=== PATIENT | male | born 1955 | race Caucasian/White ===

== ENCOUNTER 2021-05-17 10:24 | Inpatient (IN) | payer MEDICAID, SELFPAY ==
[2021-05-17] VITALS (12 sets, daily range): BP systolic 100–109; BP diastolic 65–79; PULSE 88–103; RESP 16–31; TEMP 36.6–37.1; O2SAT 90–99; BMI 25.8
--- NOTE | 2021-05-17 10:45 | XRR_ITS ---
PROCEDURE INFORMATION: Exam: XR Chest Exam date and time: 05/17/2021 10:45 AM Age: 65 years old Clinical indication: Other: Hypoxia; Patient HX: Best images possible, PT in non verbal; Additional info: Covid, hypoxia TECHNIQUE: Imaging protocol: XR of the chest. Views: 1 view. COMPARISON: CR Chest 1 [place] [id number] 09/27/2016 2:18 PM FINDINGS: Lungs: Obscuration of the right lung base by the patient's hand. Emphysematous change and interstitial prominence. Pleural spaces: No significant pleural effusion. Heart/Mediastinum: No cardiomegaly. Bones/joints: Unremarkable. XR/XR chest 1V portable [id number] IMPRESSION: 1. Obscuration of the right lung base by the patient's hand. 2. Emphysematous change and interstitial prominence.
--- NOTE | 2021-05-17 10:45 | ECG_ITS ---
[facility] Test Date: 2021-05-17 Pat Name: Jorge Luis Lucas Department: Room: 106 Gender: Male Magician/Illusionist: : 1955 Requested By: Marilynn Gao Order Number: [id number] Ash MD: Rich Madison M.D. Measurements Intervals [place] Rate: 94 P: 46 AK: 137 QRS: 63 QRSD: 96 T: 31 QT: 334 QTc: 419 Interpretive Statements SINUS RHYTHM Compared to ECG 09/27/2016 14:37:19 No significant changes Electronically Signed On 05-17-2021 18:51:28 CDT by Rich Madison M.D. [id number]
--- NOTE | 2021-05-17 10:50 | W.ED.COVID ---
Documented by User: MOE Pham 05/17/21 10:55 HPI - COVID General: Chief Complaint: COVID symptoms Stated Complaint: ALOC, COVID + LOW O2, FEVER Time Seen by Provider: 05/17/21 10:31 Source: EMS Mode of arrival: EMS Limitations: other (pt is non-verbal) Triage information: Has fever, cough or shortness of breath. Exposure to COVID + person last 14 days History of Present Illness: HPI Narrative: Patient is a 65-year-old male from [facility] brought by EMS for worsening deterioration after being diagnosed with COVID-19. Patient himself is completely nonverbal. He is a quadriplegic. EMS tells me he was diagnosed with COVID-19 over the weekend. They state upon arrival patient was febrile at 101 and hypoxic in the 80s. They placed him on 10L via non-rebreather. Not a lot is known regarding patient's history. EMS does state he has a history of seizures. Caregiver arrived shortly after and states she is trying to get contact information for his guardian. She does tell me his chart states he is not a DNR. MD complaint: known COVID positive Prior covid testing: yes, results known COVID 19 other sytmptoms: positive requiring oxygen Onset (ago): day(s) Severity: severe and rapidly worsening Treatment prior to arrival: oxygen COVID Results: Nasal/Oral Coronavirus 2019 PCR Pending 05/17/21 14:35 05/17/21 Review of Systems General: Reports: ROS unobtainable due to medical condition and ROS unobtainable due to mental status Physical Exam Const: EXAM LIMITATIONS: language barrier and physical limitations GENERAL APPEARANCE: other (thin, chronic hypotonia with contractures ) NUTRITIONAL APPEARANCE: thin OTHER: pt is completely non-verbal, he does not follow any commands Resp: EFFORT & INSPECTION: Yes tachypneic, Yes respiratory distress and Yes labored AUSCULTATION: crackles and diminished lung sounds Cardio: COMMON NORMALS: regular rhythm RATE: tachycardic (mild) RHYTHM: regular rhythm Extremity: NARRATIVE EXTREMITY EXAM: bilateral UE/LE contractures Course Vital Signs: Vital signs: Vital Signs Temperature 97.7 F 05/18/21 04:00 Pulse Rate 78 05/18/21 05:45 Respiratory Rate 22 H 05/18/21 04:00 Blood Pressure 92/62 06/22/21 04:00 Pulse Oximetry 90 05/18/21 04:00 MDM - COVID MDM Narrative: Medical decision making narrative: Care will be transferred to Dr. Vazquez Lab Data: Labs: Lab Results 05/17/21 05/17/21 05/17/21 Range/Units 11:05 11:35 11:35 WBC 4.4 (4.0-10.0) 10^3/ uL RBC 4.94 (4.1-5.3) 10^6/u L Hgb 15.2 (11.7-16.6) g/dL Hct 45.5 (42.0-52.0) % MCV 92.1 (80-94) fL MCH 30.8 (28.0-34.0) pg MCHC 33.4 (30.0-36.0) g/dL RDW 13.8 (12.1-15.1) % Plt Count 129 L (130-400) 10^3/c mm MPV 12.9 H (7.4-10.4) fL Neut % (Auto) 78.3 % Lymph % (Auto) 15.1 % Gaston % (Auto) 6.1 % Eos % (Auto) 0.0 % Baso % (Auto) 0.0 % Neut # (Auto) 3.48 (1.8-7.7) 10^3/u L Lymph # (Auto) 0.7 L (0.8-4.8) 10^3/u L Gaston # (Auto) 0.3 (0.2-0.9) 10^3/u L Eos # (Auto) 0.0 (0.0-0.8) 10^3/u L Baso # (Auto) 0.0 (0.0-0.1) 10^3/u L Nucleated RBC % (a uto) 0 % Nucleated RBCs # 0.0 /100WBC PT Cancelled INR Cancelled APTT Cancelled Fibrinogen Cancelled D-Dimer Cancelled Specimen Type Arterial Sample Site Radial, right ABG pH 7.45 (7.35-7.45) ABG pCO2 36.3 (35-45) mmHg ABG pO2 152.0 H (80.0-100.0) mmH g ABG HCO3 24.9 (22-26) mmol/L ABG Base Excess 1.2 (-2.0-2.0) mmol/ L Palmer Test N/a Hematocrit 47.7 (42-52) % O2 Delivery Device Nrb O2 Liters/Min 10.0 % FiO2 100.0 % [employer] ID Monro Sodium Potassium Chloride Carbon Dioxide Anion Gap BUN Creatinine GFR Calculation Glucose Calculated Osmolal ity Lactic Acid Lactate (0.5-2.2) mmol/L Calcium Ferritin Total Bilirubin AST ALT Alkaline Phosphata se Creatine Kinase Troponin T Gen 5 n g/L C-Reactive Protein NT-Pro-B Natriuret Pep Total Protein Albumin Globulin Procalcitonin Influenza Type A A g (Negative) Influenza Type B A g (Negative) 05/17/21 05/17/21 05/17/21 Range/Units 11:35 11:35 11:35 WBC (4.0-10.0) 10^3/ uL RBC (4.1-5.3) 10^6/u L Hgb (11.7-16.6) g/dL Hct (42.0-52.0) % MCV (80-94) fL MCH (28.0-34.0) pg MCHC (30.0-36.0) g/dL RDW (12.1-15.1) % Plt Count (130-400) 10^3/c mm MPV (7.4-10.4) fL Neut % (Auto) % Lymph % (Auto) % Gaston % (Auto) % Eos % (Auto) % Baso % (Auto) % Neut # (Auto) (1.8-7.7) 10^3/u L Lymph # (Auto) (0.8-4.8) 10^3/u L Gaston # (Auto) (0.2-0.9) 10^3/u L Eos # (Auto) (0.0-0.8) 10^3/u L Baso # (Auto) (0.0-0.1) 10^3/u L Nucleated RBC % (a uto) % Nucleated RBCs # /100WBC PT INR APTT Fibrinogen D-Dimer Specimen Type Sample Site ABG pH (7.35-7.45) ABG pCO2 (35-45) mmHg ABG pO2 (80.0-100.0) mmH g ABG HCO3 (22-26) mmol/L ABG Base Excess (-2.0-2.0) mmol/ L Palmer Test Hematocrit (42-52) % O2 Delivery Device O2 Liters/Min % FiO2 % [employer] ID Sodium Cancelled Potassium Cancelled Chloride Cancelled Carbon Dioxide Cancelled Anion Gap Cancelled BUN Cancelled Creatinine Cancelled GFR Calculation Cancelled Glucose Cancelled Calculated Osmolal ity Cancelled Lactic Acid Cancelled Lactate (0.5-2.2) mmol/L Calcium Cancelled Ferritin Cancelled Total Bilirubin Cancelled AST Cancelled ALT Cancelled Alkaline Phosphata se Cancelled Creatine Kinase Cancelled Troponin T Gen 5 n g/L Cancelled C-Reactive Protein Cancelled NT-Pro-B Natriuret Pep Cancelled Total Protein Cancelled Albumin Cancelled Globulin Cancelled Procalcitonin Cancelled Influenza Type A A g (Negative) Influenza Type B A g (Negative) 05/17/21 05/17/21 05/17/21 Range/Units 12:04 12:34 12:34 WBC (4.0-10.0) 10^3/ uL RBC (4.1-5.3) 10^6/u L Hgb (11.7-16.6) g/dL Hct (42.0-52.0) % MCV (80-94) fL MCH (28.0-34.0) pg MCHC (30.0-36.0) g/dL RDW (12.1-15.1) % Plt Count (130-400) 10^3/c mm MPV (7.4-10.4) fL Neut % (Auto) % Lymph % (Auto) % Gaston % (Auto) % Eos % (Auto) % Baso % (Auto) % Neut # (Auto) (1.8-7.7) 10^3/u L Lymph # (Auto) (0.8-4.8) 10^3/u L Gaston # (Auto) (0.2-0.9) 10^3/u L Eos # (Auto) (0.0-0.8) 10^3/u L Baso # (Auto) (0.0-0.1) 10^3/u L Nucleated RBC % (a uto) % Nucleated RBCs # /100WBC PT 14.70 INR 1.11 APTT 45.7 H Fibrinogen 425 D-Dimer 0.68 H Specimen Type Sample Site ABG pH (7.35-7.45) ABG pCO2 (35-45) mmHg ABG pO2 (80.0-100.0) mmH g ABG HCO3 (22-26) mmol/L ABG Base Excess (-2.0-2.0) mmol/ L Palmer Test Hematocrit (42-52) % O2 Delivery Device O2 Liters/Min % FiO2 % [employer] ID Sodium Potassium Chloride Carbon Dioxide Anion Gap BUN Creatinine GFR Calculation Glucose Calculated Osmolal ity Lactic Acid Lactate (0.5-2.2) mmol/L Calcium Ferritin Total Bilirubin AST ALT Alkaline Phosphata se Creatine Kinase Troponin T Gen 5 n g/L 10 C-Reactive Protein NT-Pro-B Natriuret Pep Total Protein Albumin Globulin Procalcitonin Influenza Type A A g Negative (Negative) Influenza Type B A g Negative (Negative) 05/17/21 05/17/21 05/17/21 Range/Units 12:34 12:34 12:34 WBC (4.0-10.0) 10^3/ uL RBC (4.1-5.3) 10^6/u L Hgb (11.7-16.6) g/dL Hct (42.0-52.0) % MCV (80-94) fL MCH (28.0-34.0) pg MCHC (30.0-36.0) g/dL RDW (12.1-15.1) % Plt Count (130-400) 10^3/c mm MPV (7.4-10.4) fL Neut % (Auto) % Lymph % (Auto) % Gaston % (Auto) % Eos % (Auto) % Baso % (Auto) % Neut # (Auto) (1.8-7.7) 10^3/u L Lymph # (Auto) (0.8-4.8) 10^3/u L Gaston # (Auto) (0.2-0.9) 10^3/u L Eos # (Auto) (0.0-0.8) 10^3/u L Baso # (Auto) (0.0-0.1) 10^3/u L Nucleated RBC % (a uto) % Nucleated RBCs # /100WBC PT INR APTT Fibrinogen D-Dimer Specimen Type Sample Site ABG pH (7.35-7.45) ABG pCO2 (35-45) mmHg ABG pO2 (80.0-100.0) mmH g ABG HCO3 (22-26) mmol/L ABG Base Excess (-2.0-2.0) mmol/ L Palmer Test Hematocrit (42-52) % O2 Delivery Device O2 Liters/Min % FiO2 % [employer] ID Sodium 145 Cancelled Potassium 3.6 Cancelled Chloride 111 H Cancelled Carbon Dioxide 22 Cancelled Anion Gap 15.6 Cancelled BUN 14 Cancelled Creatinine 0.8 Cancelled GFR Calculation 97.6 Cancelled Glucose 113 Cancelled Calculated Osmolal ity 301 H Cancelled Lactic Acid Lactate 0.8 (0.5-2.2) mmol/L Calcium 7.8 L Cancelled Ferritin 894 H Total Bilirubin 0.3 Cancelled AST 44 H Cancelled ALT 28 Cancelled Alkaline Phosphata se 104 Cancelled Creatine Kinase 200 Troponin T Gen 5 n g/L C-Reactive Protein 112.9 H Cancelled NT-Pro-B Natriuret Pep 45 Total Protein 5.7 L Cancelled Albumin 3.1 L Cancelled Globulin 2.6 Cancelled Procalcitonin 0.36 Influenza Type A A g (Negative) Influenza Type B A g (Negative) COVID Results: Nasal/Oral Coronavirus 2019 PCR Pending 05/17/21 14:35 05/17/21 Discharge Plan Discharge Patient Disposition: Admitted As Inpatient Admit Provider: Rajat Carreno Clinical Impression: Pneumonia due to COVID-19 virus, Pulmonary embolism, Thrombocytopenia Condition: Stable Sign Out Sign Out Data: Patient Sign Out occurred on 05/17/21 at 11:31. Patient's care was discussed, and care was transferred from to Josh Vazquez DO. Coding Level of Care Code ED Windows Support Engineer for Chg Fwd Exam Expanded Problem Focused Documented by User: Josh Vazquez DO 05/18/21 06:21 HPI - COVID General: Chief Complaint: COVID symptoms Stated Complaint: ALOC, COVID + LOW O2, FEVER Time Seen by Provider: 05/17/21 10:31 History of Present Illness: HPI Narrative: 65-year-old male brought in by caregivers. He was tested twice with rapid antigen's in outside clinic over the weekend first on May 14 and then on May 15 May 15 test was positive. Patient is a paraplegic was evidently found as an abandoned and has been in institutional care since. He has a state appointed guardian but evidently is from [place]. We did talk to her and she wishes for the patient to be a full code. Patient presents hypoxic requiring supplemental oxygen to maintain oxygen sats. Because of his underlying medical condition he cannot contribute any to history. His was first seen by Marilynn Gao or MOE in the emergency room. complaint: known COVID positive Prior covid testing: yes, results known Prior testing date: 05/15/21 COVID 19 common symptoms: positive fever(s), cough and dyspnea Onset (ago): day(s) Severity: moderate Pertinent comorbid conditions: other (Patient is partial quadriplegic) Treatment prior to arrival: none COVID Results: Nasal/Oral Coronavirus 2019 PCR Pending 05/17/21 14:35 05/17/21 Review of Systems General: Reports: ROS unobtainable due to medical condition Const: Reports: fever(s) Resp: Reports: dyspnea Physical Exam HENMT: COMMON NORMALS: normocephalic and atraumatic HEAD & SCALP: normocephalic and atraumatic Eye: COMMON NORMALS: conjunctivae normal and no scleral icterus CONJUNCTIVA: Yes conjunctivae normal Neck/C-Spine: COMMON NORMALS: no lymphadenopathy, supple and no JVD Resp: EFFORT & INSPECTION: Yes tachypneic AUSCULTATION: rhonchi and wheezes Cardio: COMMON NORMALS: no JVD, regular rhythm and No murmurs present (Cardio) RATE: bradycardic RHYTHM: regular rhythm GI: COMMON NORMALS: Soft to palpation and No hepatosplenomegaly present AUSCULTATION: Yes normoactive bowel sounds PALPATION: Yes Soft to palpation, No Tenderness to palpation present (GI), No Guarding due to palpation present (GI) and Yes No hepatosplenomegaly present Extremity: OTHER: Muscle wasting with contractures bilaterally of the upper and lower extremities more prominent on the lower extremities patient has minimal use of the upper extremities to the point where he is able to remove his oxygen. Course Vital Signs: Vital signs: Vital Signs Temperature 97.7 F 05/18/21 04:00 Pulse Rate 78 05/18/21 05:45 Respiratory Rate 22 H 05/18/21 04:00 Blood Pressure 92/62 05/18/21 04:00 Pulse Oximetry 90 05/18/21 04:00 MDM - COVID MDM Narrative: Medical decision making narrative: Confirmed positive Covid status from the outpatient clinic. Patient started on remdesivir and dexamethasone continue supplemental oxygen. Discussed with hospitalist will admit to the ICU so as to ensure that patient is in a negative pressure room suspect he may require high flow oxygen by nasal cannula later today or tomorrow. Given his underlying medical conditions patient is highly susceptible to rapid decompensation from the point he is out he will not be able to alert others and requires ICU placement. CTA did show a small nonocclusive PE. Discussed with Dr. Carreno orders are written. Lab Data: Labs: Lab Results 05/17/21 05/17/21 05/17/21 Range/Units 11:05 11:35 11:35 WBC 4.4 (4.0-10.0) 10^3/ uL RBC 4.94 (4.1-5.3) 10^6/u L Hgb 15.2 (11.7-16.6) g/dL Hct 45.5 (42.0-52.0) % MCV 92.1 (80-94) fL MCH 30.8 (28.0-34.0) pg MCHC 33.4 (30.0-36.0) g/dL RDW 13.8 (12.1-15.1) % Plt Count 129 L (130-400) 10^3/c mm MPV 12.9 H (7.4-10.4) fL Neut % (Auto) 78.3 % Lymph % (Auto) 15.1 % Gaston % (Auto) 6.1 % Eos % (Auto) 0.0 % Baso % (Auto) 0.0 % Neut # (Auto) 3.48 (1.8-7.7) 10^3/u L Lymph # (Auto) 0.7 L (0.8-4.8) 10^3/u L Gaston # (Auto) 0.3 (0.2-0.9) 10^3/u L Eos # (Auto) 0.0 (0.0-0.8) 10^3/u L Baso # (Auto) 0.0 (0.0-0.1) 10^3/u L Nucleated RBC % (a uto) 0 % Nucleated RBCs # 0.0 /100WBC PT Cancelled INR Cancelled APTT Cancelled Fibrinogen Cancelled D-Dimer Cancelled Specimen Type Arterial Sample Site Radial, right ABG pH 7.45 (7.35-7.45) ABG pCO2 36.3 (35-45) mmHg ABG pO2 152.0 H (80.0-100.0) mmH g ABG HCO3 24.9 (22-26) mmol/L ABG Base Excess 1.2 (-2.0-2.0) mmol/ L Palmer Test N/a Hematocrit 47.7 (42-52) % O2 Delivery Device Nrb O2 Liters/Min 10.0 % FiO2 100.0 % [employer] ID Monro Sodium Potassium Chloride Carbon Dioxide Anion Gap BUN Creatinine GFR Calculation Glucose Calculated Osmolal ity Lactic Acid Lactate (0.5-2.2) mmol/L Calcium Ferritin Total Bilirubin AST ALT Alkaline Phosphata se Creatine Kinase Troponin T Gen 5 n g/L C-Reactive Protein NT-Pro-B Natriuret Pep Total Protein Albumin Globulin Procalcitonin Influenza Type A A g (Negative) Influenza Type B A g (Negative) 05/17/21 05/17/21 05/17/21 Range/Units 11:35 11:35 11:35 WBC (4.0-10.0) 10^3/ uL RBC (4.1-5.3) 10^6/u L Hgb (11.7-16.6) g/dL Hct (42.0-52.0) % MCV (80-94) fL MCH (28.0-34.0) pg MCHC (30.0-36.0) g/dL RDW (12.1-15.1) % Plt Count (130-400) 10^3/c mm MPV (7.4-10.4) fL Neut % (Auto) % Lymph % (Auto) % Gaston % (Auto) % Eos % (Auto) % Baso % (Auto) % Neut # (Auto) (1.8-7.7) 10^3/u L Lymph # (Auto) (0.8-4.8) 10^3/u L Gaston # (Auto) (0.2-0.9) 10^3/u L Eos # (Auto) (0.0-0.8) 10^3/u L Baso # (Auto) (0.0-0.1) 10^3/u L Nucleated RBC % (a uto) % Nucleated RBCs # /100WBC PT INR APTT Fibrinogen D-Dimer Specimen Type Sample Site ABG pH (7.35-7.45) ABG pCO2 (35-45) mmHg ABG pO2 (80.0-100.0) mmH g ABG HCO3 (22-26) mmol/L ABG Base Excess (-2.0-2.0) mmol/ L Palmer Test Hematocrit (42-52) % O2 Delivery Device O2 Liters/Min % FiO2 % [employer] Senior [employer] ID Sodium Cancelled Potassium Cancelled Chloride Cancelled Carbon Dioxide Cancelled Anion Gap Cancelled BUN Cancelled Creatinine Cancelled GFR Calculation Cancelled Glucose Cancelled Calculated Osmolal ity Cancelled Lactic Acid Cancelled Lactate (0.5-2.2) mmol/L Calcium Cancelled Ferritin Cancelled Total Bilirubin Cancelled AST Cancelled ALT Cancelled Alkaline Phosphata se Cancelled Creatine Kinase Cancelled Troponin T Gen 5 n g/L Cancelled C-Reactive Protein Cancelled NT-Pro-B Natriuret Pep Cancelled Total Protein Cancelled Albumin Cancelled Globulin Cancelled Procalcitonin Cancelled Influenza Type A A g (Negative) Influenza Type B A g (Negative) 05/17/21 05/17/21 05/17/21 Range/Units 12:04 12:34 12:34 WBC (4.0-10.0) 10^3/ uL RBC (4.1-5.3) 10^6/u L Hgb (11.7-16.6) g/dL Hct (42.0-52.0) % MCV (80-94) fL MCH (28.0-34.0) pg MCHC (30.0-36.0) g/dL RDW (12.1-15.1) % Plt Count (130-400) 10^3/c mm MPV (7.4-10.4) fL Neut % (Auto) % Lymph % (Auto) % Gaston % (Auto) % Eos % (Auto) % Baso % (Auto) % Neut # (Auto) (1.8-7.7) 10^3/u L Lymph # (Auto) (0.8-4.8) 10^3/u L Gaston # (Auto) (0.2-0.9) 10^3/u L Eos # (Auto) (0.0-0.8) 10^3/u L Baso # (Auto) (0.0-0.1) 10^3/u L Nucleated RBC % (a uto) % Nucleated RBCs # /100WBC PT 14.70 INR 1.11 APTT 45.7 H Fibrinogen 425 D-Dimer 0.68 H Specimen Type Sample Site ABG pH (7.35-7.45) ABG pCO2 (35-45) mmHg ABG pO2 (80.0-100.0) mmH g ABG HCO3 (22-26) mmol/L ABG Base Excess (-2.0-2.0) mmol/ L Palmer Test Hematocrit (42-52) % O2 Delivery Device O2 Liters/Min % FiO2 % [employer] ID Sodium Potassium Chloride Carbon Dioxide Anion Gap BUN Creatinine GFR Calculation Glucose Calculated Osmolal ity Lactic Acid Lactate (0.5-2.2) mmol/L Calcium Ferritin Total Bilirubin AST ALT Alkaline Phosphata se Creatine Kinase Troponin T Gen 5 n g/L 10 C-Reactive Protein NT-Pro-B Natriuret Pep Total Protein Albumin Globulin Procalcitonin Influenza Type A A g Negative (Negative) Influenza Type B A g Negative (Negative) 05/17/21 05/17/21 05/17/21 Range/Units 12:34 12:34 12:34 WBC (4.0-10.0) 10^3/ uL RBC (4.1-5.3) 10^6/u L Hgb (11.7-16.6) g/dL Hct (42.0-52.0) % MCV (80-94) fL MCH (28.0-34.0) pg MCHC (30.0-36.0) g/dL RDW (12.1-15.1) % Plt Count (130-400) 10^3/c mm MPV (7.4-10.4) fL Neut % (Auto) % Lymph % (Auto) % Gaston % (Auto) % Eos % (Auto) % Baso % (Auto) % Neut # (Auto) (1.8-7.7) 10^3/u L Lymph # (Auto) (0.8-4.8) 10^3/u L Gaston # (Auto) (0.2-0.9) 10^3/u L Eos # (Auto) (0.0-0.8) 10^3/u L Baso # (Auto) (0.0-0.1) 10^3/u L Nucleated RBC % (a uto) % Nucleated RBCs # /100WBC PT INR APTT Fibrinogen D-Dimer Specimen Type Sample Site ABG pH (7.35-7.45) ABG pCO2 (35-45) mmHg ABG pO2 (80.0-100.0) mmH g ABG HCO3 (22-26) mmol/L ABG Base Excess (-2.0-2.0) mmol/ L Palmer Test Hematocrit (42-52) % O2 Delivery Device O2 Liters/Min % FiO2 % [employer] Senior Officer ID Sodium 145 Cancelled Potassium 3.6 Cancelled Chloride 111 H Cancelled Carbon Dioxide 22 Cancelled Anion Gap 15.6 Cancelled BUN 14 Cancelled Creatinine 0.8 Cancelled GFR Calculation 97.6 Cancelled Glucose 113 Cancelled Calculated Osmolal ity 301 H Cancelled Lactic Acid Lactate 0.8 (0.5-2.2) mmol/L Calcium 7.8 L Cancelled Ferritin 894 H Total Bilirubin 0.3 Cancelled AST 44 H Cancelled ALT 28 Cancelled Alkaline Phosphata se 104 Cancelled Creatine Kinase 200 Troponin T Gen 5 n g/L C-Reactive Protein 112.9 H Cancelled NT-Pro-B Natriuret Pep 45 Total Protein 5.7 L Cancelled Albumin 3.1 L Cancelled Globulin 2.6 Cancelled Procalcitonin 0.36 Influenza Type A A g (Negative) Influenza Type B A g (Negative) COVID Results: Nasal/Oral Coronavirus 2019 PCR Pending 05/17/21 14:35 05/17/21 Discharge Plan Discharge Patient Disposition: Admitted As Inpatient Admit Provider: Carreno,Rajat Clinical Impression: Pneumonia due to COVID-19 virus, Pulmonary embolism, Thrombocytopenia Condition: Stable Sign Out Sign Out Data: Patient Sign Out occurred on 05/17/21 at 11:31. Patient's care was discussed, and care was transferred from to Josh Vazquez DO. Coding Level of Care Code ED Windows Support Engineer for Júnior Fwd Exam Expanded Problem Focused
[2021-05-17 11:18] LABS: ABG PCO2 36.3 mmHg (35-45); ABG PH Result 7.45 (7.35-7.45); Arterial Blood Gas Hematocrit 47.7 % (42-52); Base Excess ABG 1.2 mmol/L (-2.0-2.0); Blood Gas Operator Identificat MONRO; Blood Gas Sample Site Radial, right; Blood Gas Sample Type Arterial; HCO3 ABG 24.9 mmol/L (22-26); Oxygen Device NRB
[2021-05-17 12:01] LABS: Hematocrit 45.5 % (42.0-52.0); Hemoglobin 15.2 g/dL (11.7-16.6); Lymphocytes # 0.7 10^3/uL (0.8-4.8); Lymphocytes % 15.1 %; Mean Corpuscular HGB Conc 33.4 g/dL (30.0-36.0); Mean Corpuscular Hemoglobin 30.8 pg (28.0-34.0); Mean Corpuscular Volume 92.1 fL (80-94); Mean Platelet Volume 12.9 fL (7.4-10.4); Monocytes # 0.3 10^3/uL (0.2-0.9); Monocytes % 6.1 %; Neutrophils # 3.48 10^3/uL (1.8-7.7); Neutrophils % 78.3 %; Nucleated Red Blood Cells % 0 %; Platelet Count 129 10^3/cmm (130-400); Red Blood Count 4.94 10^6/uL (4.1-5.3); Red Cell Distribution Width 13.8 % (12.1-15.1); White Blood Count 4.4 10^3/uL (4.0-10.0)
[2021-05-17 12:39] LABS: Influenza A by IFA Negative (Negative); Influenza B by IFA Negative (Negative)
[2021-05-17 12:58] LABS: INR 1.11 (0.8-1.2)
[2021-05-17 12:59] LABS: Fibrinogen 425 mg/dL (174-498); Partial Thromboplastin Time 45.7 SECONDS (23.9-36.7)
[2021-05-17 13:02] LABS: D Dimer 0.68 ug/mIFEU (0-0.59); Troponin T (5th) Once 10 ng/L (0-15)
[2021-05-17 13:03] LABS: Lactate (Lactic Acid level) 0.8 mmol/L (0.5-2.2)
[2021-05-17 13:10] LABS: Alanine Aminotransferase 28 U/L (0-41); Albumin Level 3.1 g/dL (3.5-5.2); Alkaline Phosphatase 104 IU/L (40-130); Aspartate Amino Transferase 44 U/L (0-40); Blood Urea Nitrogen 14 mg/dL (8-23); C Reactive Protein 112.9 mg/L (0.0-4.9); Calcium 7.8 mg/dL (8.5-10.5); Carbon Dioxide 22 mmol/L (22-29); Chloride 111 mmol/L (98-107); Creatine Phosphokinase 200 U/L (39-308); Ferritin 894 ng/mL (30-400); Globulin 2.6 g/dL (1.3-4.6); Glomerular Filtration Rate 97.6 mL/min (90-130); Glucose 113 mg/dL (65-115); Osmolality Calculated 301 mOsm/kg (285-295); Sodium 145 mmol/L (136-145); Total Bilirubin 0.3 mg/dL (0.15-1.2); Total Protein 5.7 g/dL (6.6-8.7)
[2021-05-17 13:11] LABS: Anion Gap 15.6 (5-19); Potassium 3.6 mmol/L (3.5-5.1)
--- NOTE | 2021-05-17 13:28 | CT_ITS ---
WS: [id number] CT CHEST ANGIOGRAPHY WITH REFORMATS HISTORY: hypoxia TECHNIQUE: Contiguous axial images are obtained through the chest during arterial injection of intrav enous contrast. Images are reconstructed to evaluate the pulmonary arteries. MIP imaging also reviewe d. All CT scans at [facility] use at least one of these dose optimization techniques: aut omated exposure control; mA and/or kV adjustment per patient size (includes targeted exams where dose is matched to clinical indication); or iterative reconstruction. CONTRAST: Omnipaque 350; 95 mL IV. DLP: 613.68 mGy.cm COMPARISON: None available. Technically difficult evaluation. Centrally there is no pulmonary embolism. There are a few very smal l filling defects or stricture incomplete in the proximal LEFT upper lobe arteries. Suspect smaller f illing defects in subsegmental branches of the LEFT lower lobe. Bilateral scattered pulmonary opacifications within each lung. No very dense consolidations. Dependen t changes but no effusions. Heart size is normal. No pericardial effusion. Bilateral hilar lymphadeno stevie may be reactive. Lymph nodes measure up to 9 mm. Stomach is intrathoracic. No ischemic changes are identified. Mild atherosclerosis aorta. Pulmonary artery size is normal. Cholelithiasis without evidence for acute cholecystitis. No bile duct dilatation. Cortical atrophy up per pole of each kidney. No adrenal mass. Mild anterior wedging of T7. CT/CT angio chest PE protcl [id number] IMPRESSION: 1. Very small, nonocclusive age-indeterminate emboli in the proximal upper lob e pulmonary arteries and distal LEFT lower lobe pulmonary artery. 2. Bilateral scattered pulmonary opacifications and probable reactive lymphade nopathy. Pneumonitis and pneumonia should be considered. 3. Cholelithiasis without acute cholecystitis. 4. Intrathoracic stomach.
[2021-05-17] MEDS: levofloxacin-dextrose 5 % 500 MG/100 ML PREMIX 100 MG IV (13:39)
[2021-05-17 13:51] LABS: NT Pro B Type Natriuretic Pept 45 pg/mL (0-125); Procalcitonin 0.36 ng/mL (0-0.5)
[2021-05-17] MEDS: iohexol 350 mg/mL 100 mL Btl IV (14:13)
[2021-05-17 14:25] LABS: Reflex Lactate Order REFLEX LACTIC ORDERD
[2021-05-17] MEDS: dexamethasone 10 mg/mL INJ IVP (14:41)
--- NOTE | 2021-05-17 15:12 | PC.NURSE ---
STRAIGHT CATH PERFORMED TO GET ORDERED UA; NO URINE RETURNED.
--- NOTE | 2021-05-17 15:13 | PC.NURSE ---
REPORT CALLED TO GROVER MCGARRY TO CSU 106.
[2021-05-17] MEDS: remdesivir 200 MG in sodium chloride 0.9% (100 ml) 100 ML 100 MG IV (15:14)
[2021-05-17 16:31] LABS: Lactic Acid level (Lactate) 2.3 mmol/L (0.5-2.2)
[2021-05-17] MEDS: D5-NS 0.45% + KCL 20 mEq 20 MEQ/1,000 ML BAG 100 MEQ IV (18:13)
[2021-05-17] MEDS: enoxaparin 80 mg/0.8 mL Syringe 70 MG SUBCUT (18:13)
[2021-05-17] MEDS: budesonide 0.5 mg/2 mL Neb INHALATION (20:33)
--- NOTE | 2021-05-17 21:08 | P.HP_ITS ---
Providers/Chief Complaint Admitting Physician: Rajat Carreno MD Primary Care Provider: MANDI Stewart Chief Complaint: WEAKNESS, ONSET THIS MORNING, LETHARGY History of Present Illness 65-year-old male from [facility] brought by EMS for worsening deterioration after being diagnosed with COVID-19. Patient himself is completely nonverbal. He is a quadriplegic. EMS records states he was diagnosed with COVID-19 over the weekend. They state upon arrival patient was febrile at 101 and hypoxic in the 80s. They placed him on 10L via non-rebreather. Upon arrival in the ER he was worked up for above-mentioned,: Imaging studies: CT angio chest: Very small, nonocclusive age-indeterminate emboli in the proximal upper lobe pulmonary arteries and distal LEFT lower lobe pulmonary ar jordy. Bilateral scattered pulmonary opacifications and probable reactive lymphadenopathy. Pneumonitis and pneumonia should be considered. XR chest :Emphysematous change and interstitial prominence Review of Systems General: Reports: ROS unobtainable due to mental status Medications/Allergies Home Medications Medication Instructions Recorded Confirmed Last Taken Type acetaminophen 650 mg PO Q6H PRN 05/17/21 05/17/21 Unknown History ascorbic acid (vitamin C) [Vitamin 250 mg PO DAILY@12 05/17/21 05/17/21 05/16/21 History C] atorvastatin 20 mg PO DAILY@20 05/17/21 05/17/21 05/16/21 History dextromethorphan-guaifenesin 5 ml PO Q4H PRN 05/17/21 05/17/21 Unknown History [Williamssin DM] docosanol [Abreva] 1 applic TOPICAL DAILY PRN 05/17/21 05/17/21 Unknown History famotidine 20 mg PO DAILY PRN 05/17/21 05/17/21 Unknown History fluticasone propionate [Flonase] 1 spray INTRANASAL DAILY@08 05/17/21 05/17/21 05/17/21 History lactulose 30 ml PO . DAILY@08 AND PRN 05/17/21 05/17/21 05/17/21 History levetiracetam 1,500 mg PO BID@08,20 05/17/21 05/17/21 05/17/21 08:00 History loratadine 10 mg PO DAILY PRN 05/17/21 05/17/21 Unknown History magnesium hydroxide 30 ml PO DAILY PRN 05/17/21 05/17/21 Unknown History menthol-zinc oxide [Calmoseptine] 1 applic TOPICAL .ONCE TO TWICE 05/17/2105/17 Unknown History DAILY PRN multivitamin 1 tab PO DAILY@08 05/17/21 05/17/21 05/17/21 History mupirocin 1 applic TOPICAL TID@08,12,05/17/21 05/17/21 05/17/21 08:00 History olopatadine 1 drp OPHTHALMIC (EYE) BID PRN 05/17/21 05/17/21 Unknown History olopatadine [Pazeo] 2 drp OPHTHALMIC (EYE) DAILY PRN 05/17/21 05/17/21 Unknown History pantoprazole 40 mg PO DAILY@05/17/21 05/17/21 05/17/21 08:00 History paroxetine HCl [Paxil] 10 mg PO DAILY@05/17/21 05/17/21 05/17/21 History perampanel 8 mg PO DAILY@05/17/21 05/17/21 05/16/21 History polyethylene glycol 3350 17 g PO DAILY@05/17/21 05/17/21 05/17/21 History sennosides 8.6 mg PO DAILY@05/17/21 05/17/21 05/17/21 08:00 History Allergies Allergy/AdvReac Type Severity Reaction Status Date / Time TIDE LAUNDRY SOAP Allergy ALGY-Rash Uncoded 05/17/21 14:49 Vitals/I&O/Wt Last Vital Signs Temp 98 F 05/17/21 20:00 Pulse 88 05/17/21 20:35 Resp 20 H 05/17/21 20:33 BP 109/72 05/17/21 20:00 Pulse Ox 92 05/17/21 20:33 05/17/21 05/17/21 05/17/21 06:59 14:59 22:59 Intake Total 440 / 440 Balance 440 / 440 Weight last 48 hrs Weight 72.575 kg Physical Exam HENMT: COMMON NORMALS: normocephalic and atraumatic HEAD & SCALP: normo cephalic and atraumatic Resp: EFFORT & INSPECTION: Yes symmetric chest movement OTHER: Bilateral diminished breath sounds Cardio: COMMON NORMALS: regular rate, regular rhythm, S1 normal heart sound present, S2 normal heart sound present, No gallops present (Cardio), No murmurs present (Cardio), No rub (Cardio) and Peripheral pulses 2+ throughout RATE: regular rate RHYTHM: regular rhythm HEART SOUNDS: S1 normal heart sound present and S2 normal heart sound present PERIPHERAL PULSES: Peripheral pulses 2+ throughout GI: COMMON NORMALS: Normal to inspection, nondistended, normoactive bowel sounds present, Soft to palpation, non-tender, No hepatosplenomegaly present and no masses AUSCULTATION: Yes normoactive bowel sounds PALPATION: Yes Soft to palpation and Yes No hepatosplenomegaly present RECTAL EXAM: Yes deferred Extremity: COMMON NORMALS: no clubbing, cyanosis or edema and no pedal edema Data : 05/17/21 11:35 05/17/21 12:34 Micro: Microbiology 05/17/21 11:40 Blood Culture - Preliminary Blood SPECIMEN COLLECTED 05/17/21 11:35 Blood Culture - Preliminary Blood SPECIMEN COLLECTED A&P Assessment and plan (1) Pneumonia due to COVID-19 virus: Pneumonia due to COVID-19: Started on Covid protocol: Status: Acute (2) Pulmonary embolism: Lovenox 70 subcu twice daily. Status: Acute (3) Thrombocytopenia: Monitor CBC. Status: Acute (4) Elevated lactic acid level: Likely secondary dehydration. Follow Repeat Lactic acid Follow blood culture. Hold Off on Abxs Status: Acute Additional A&P Information Code Status :Full Code DVT PPX: On Lovenox Attestations Medical Necessity Statement*: Patient needs to be in hospital for management of Covid pneumonia. Anticipated length of stay greater than 2 midnight. 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
[2021-05-18] VITALS (14 sets, daily range): BP systolic 92–112; BP diastolic 62–81; PULSE 75–88; RESP 20–30; TEMP 36.5–37.6; O2SAT 88–92
[2021-05-18 04:06] LABS: Hematocrit 45.1 % (42.0-52.0); Hemoglobin 14.4 g/dL (11.7-16.6); Lymphocytes # 0.5 10^3/uL (0.8-4.8); Lymphocytes % 15.8 %; Mean Corpuscular HGB Conc 31.9 g/dL (30.0-36.0); Mean Corpuscular Hemoglobin 30.3 pg (28.0-34.0); Mean Corpuscular Volume 94.7 fL (80-94); Mean Platelet Volume 12.3 fL (7.4-10.4); Monocytes # 0.2 10^3/uL (0.2-0.9); Monocytes % 8.4 %; Neutrophils # 2.15 10^3/uL (1.8-7.7); Neutrophils % 75.4 %; Nucleated Red Blood Cells % 0 %; Platelet Count 112 10^3/cmm (130-400); Red Blood Count 4.76 10^6/uL (4.1-5.3); Red Cell Distribution Width 13.6 % (12.1-15.1); White Blood Count 2.9 10^3/uL (4.0-10.0)
[2021-05-18 04:29] LABS: Lactate (Lactic Acid level) 1.1 mmol/L (0.5-2.2)
[2021-05-18 04:36] LABS: NT Pro B Type Natriuretic Pept 53 pg/mL (0-125); Procalcitonin 0.29 ng/mL (0-0.5)
[2021-05-18 04:48] LABS: Alanine Aminotransferase 29 U/L (0-41); Alkaline Phosphatase 96 IU/L (40-130); Aspartate Amino Transferase 43 U/L (0-40); Blood Urea Nitrogen 15 mg/dL (8-23); C Reactive Protein 112.8 mg/L (0.0-4.9); Calcium 7.9 mg/dL (8.5-10.5); Carbon Dioxide 25 mmol/L (22-29); Chloride 110 mmol/L (98-107); Globulin 2.9 g/dL (1.3-4.6); Glomerular Filtration Rate 97.6 mL/min (90-130); Glucose 175 mg/dL (65-115); Osmolality Calculated 301 mOsm/kg (285-295); Sodium 143 mmol/L (136-145); Total Bilirubin 0.2 mg/dL (0.15-1.2); Total Protein 5.9 g/dL (6.6-8.7)
[2021-05-18 04:49] LABS: Erythrocyte Sedimentation Rate 25 mm/hr (0-10)
[2021-05-18] MEDS: D5-NS 0.45% + KCL 20 mEq 20 MEQ/1,000 ML BAG 100 MEQ IV ×2 (04:55→14:44)
[2021-05-18] MEDS: enoxaparin 80 mg/0.8 mL Syringe 70 MG SUBCUT ×2 (04:56→17:40)
[2021-05-18 05:00] LABS: Ferritin 1014 ng/mL (30-400)
[2021-05-18] MEDS: budesonide 0.5 mg/2 mL Neb INHALATION ×2 (09:23→19:56)
--- NOTE | 2021-05-18 10:00 | PC.CHAP ---
Pastoral Care Encounter/Spiritual Assessment Type of Contact [] Declined dry cans operator visit [] Patient/Family/Request visit [] Outpatient visit [] Follow-up visit [] Physician referral [] Code/Alert [x] Routine visit [] Staff referral [] Actively dying [] Patient sleeping [] Family support [] [] Out of room [] Palliative care [] [] Receiving care in room [] Pre-surgical visit [] Trauma [] Long length of stay [] ICU visit [x] Other: quarantined Relational/Emotional Strength [] Patient feels connected with others/family/visitors/staff [] Distress [] Loneliness/isolation [] Abandonment Spirituality of Patient [] Person of Emma [] Attends Tenriism of their Emma [] Believes in Prayer [] Reads Bible or Christian materials [] There are Spiritual issues to be addressed [place]andy Dipper Interventions [x] Prayer [] Active listening [] Non-anxious presence [] Spiritual/emotional support [] Crisis/trauma care [] Spiritual counseling [] Bereavement support [] Provided bereavement packet [] Provided Bible/devotional materials [] Provided toy/stuffed animal, coloring book to patient or family member [] Provided Communion [] Anointing/[place] [] Salvation [x] Completed spiritual assessment [] Other: Impact on Illness or Injury [] Angry [] Fearful [] Anxious [] Often cries [] Exhaustion [] Unable to work [] Unable to attend sikh [] Unable to walk/stand [] Unable to read [] Unable to drive [] Unable to eat/drink [] Unable to sleep [] Unable to be with family [] Patient intubated [] Other: Summary Time spent with patient
[2021-05-18] MEDS: zinc gluconate 50 mg Tablet PO (10:14)
[2021-05-18] MEDS: pantoprazole DR 40 mg Tablet PO (10:14)
[2021-05-18] MEDS: ascorbic acid 500 mg Tablet PO ×2 (10:15→17:41)
--- NOTE | 2021-05-18 14:10 | P.PN_ITS ---
Subjective Subjective: Interval history: No acute events overnight. Vitals and labs have been reviewed. Vitals/I&O/Wt Last Vital Signs Temp 97.7 F 05/18/21 04:00 Pulse 82 05/18/21 09:28 Resp 20 H 05/18/21 09:23 BP 92/62 05/18/21 04:00 Pulse Ox 90 05/18/21 09:23 05/17/21 05/18/21 05/18/21 22:59 06:59 14:59 Intake Total 800 / 800 1120 / 1920 222 / 222 Balance 800 / 800 1120 / 1920 222 / 222 Weight last 48 hrs Weight 72.575 kg Physical Exam HENMT: COMMON NORMALS: normocephalic and atraumatic HEAD & SCALP: normocephalic and atraumatic Resp: EFFORT & INSPECTION: Yes symmetric chest movement OTHER: Bilateral diminished breath sounds Cardio: COMMON NORMALS: regular rate, regular rhythm, S1 normal heart sound present, S2 normal heart sound present, No gallops present (Cardio), No murmurs present (Cardio), No rub (Cardio) and Peripheral pulses 2+ throughout RATE: regular rate RHYTHM: regular rhythm HEART SOUNDS: S1 normal heart sound present and S2 normal heart sound present PERIPHERAL PULSES: Peripheral pulses 2+ throughout GI: COMMON NORMALS: Normal to inspection, nondistended, normoactive bowel sounds present, Soft to palpation, non-tender, No hepatosplenomegaly present and no masses AUSCULTATION: Yes normoactive bowel sounds PALPATION: Yes Soft to palpation and Yes No hepatosplenomegaly present RECTAL EXAM: Yes deferred Extremity: COMMON NORMALS: no clubbing, cyanosis or edema and no pedal edema Data : 05/18/21 03:36 05/18/21 03:36 Micro: Microbiology 05/17/21 11:40 Blood Culture - Preliminary Blood NEGATIVE TO DATE 05/17/21 11:35 Blood Culture - Preliminary Blood NEGATIVE TO DATE A&P Assessment and plan (1) Pneumonia due to COVID-19 virus: Pneumonia due to COVID-19: Started on Covid protocol: Status: Acute (2) Pulmonary embolism: Lovenox 70 subcu twice daily. Status: Acute (3) Thrombocytopenia: Monitor CBC. Status: Acute (4) Elevated lactic acid level: Likely secondary dehydration. Follow Repeat Lactic acid Follow blood culture. Hold Off on Abxs Status: Acute Additional A&P Information Code Status :Full Code DVT PPX: On Lovenox Attestations Medical Necessity Statement*: Patient needs to be in hospital for management of Covid pneumonia. Coding Level of Care Code Acute In Flight Technician for g Fwd Exam Detailed Diagnoses Pneumonia due to COVID-19 virus U07.1; J12.82 Pulmonary embolism I26.99 Thrombocytopenia D69.6 Elevated lactic acid level R79.89
[2021-05-18] MEDS: levofloxacin-dextrose 5 % 750 MG/150 ML PREMIX 100 MG IV (14:46)
--- NOTE | 2021-05-18 14:52 | PC.NURSE ---
pt repositioned at this time
--- NOTE | 2021-05-18 14:54 | PC.NURSE ---
one brief change at this time
[2021-05-18 16:58] LABS: Coronavirus Test Green County Detected
[2021-05-18] MEDS: dexamethasone 4 mg/mL INJ 6 MG IVP (17:40)
[2021-05-18] MEDS: remdesivir 100 MG in sodium chloride 0.9% (100 ml) 100 ML IV (17:41)
[2021-05-19] VITALS (10 sets, daily range): BP systolic 112–156; BP diastolic 72–89; PULSE 71–92; RESP 16–30; TEMP 36.7–37.4; O2SAT 88–91
[2021-05-19 04:53] LABS: Hematocrit 43.1 % (42.0-52.0); Hemoglobin 14.1 g/dL (11.7-16.6); Lymphocytes # 0.6 10^3/uL (0.8-4.8); Lymphocytes % 14.2 %; Mean Corpuscular HGB Conc 32.7 g/dL (30.0-36.0); Mean Corpuscular Hemoglobin 29.9 pg (28.0-34.0); Mean Corpuscular Volume 91.5 fL (80-94); Mean Platelet Volume 12.2 fL (7.4-10.4); Monocytes # 0.5 10^3/uL (0.2-0.9); Monocytes % 11.5 %; Neutrophils % 73.8 %; Nucleated Red Blood Cells % 0 %; Platelet Count 98 10^3/cmm (130-400); Red Blood Count 4.71 10^6/uL (4.1-5.3); Red Cell Distribution Width 13.2 % (12.1-15.1); White Blood Count 3.9 10^3/uL (4.0-10.0)
[2021-05-19 05:10] LABS: D Dimer 0.33 ug/mIFEU (0-0.59)
[2021-05-19 05:15] LABS: Alanine Aminotransferase 30 U/L (0-41); Albumin Level 3.1 g/dL (3.5-5.2); Alkaline Phosphatase 88 IU/L (40-130); Anion Gap 12.1 (5-19); Aspartate Amino Transferase 51 U/L (0-40); Blood Urea Nitrogen 17 mg/dL (8-23); Calcium 7.6 mg/dL (8.5-10.5); Carbon Dioxide 24 mmol/L (22-29); Chloride 109 mmol/L (98-107); Globulin 2.7 g/dL (1.3-4.6); Glomerular Filtration Rate 136.1 mL/min (90-130); Glucose 125 mg/dL (65-115); Osmolality Calculated 295 mOsm/kg (285-295); Potassium 4.1 mmol/L (3.5-5.1); Sodium 141 mmol/L (136-145); Total Bilirubin 0.2 mg/dL (0.15-1.2); Total Protein 5.8 g/dL (6.6-8.7)
[2021-05-19 05:29] LABS: Ferritin 1101 ng/mL (30-400)
[2021-05-19 05:38] LABS: Erythrocyte Sedimentation Rate 17 mm/hr (0-10)
[2021-05-19] MEDS: enoxaparin 80 mg/0.8 mL Syringe 70 MG SUBCUT ×2 (06:53→17:20)
[2021-05-19] MEDS: D5-NS 0.45% + KCL 20 mEq 20 MEQ/1,000 ML BAG 100 MEQ IV ×3 (07:49→22:46)
--- NOTE | 2021-05-19 07:50 | PC.NURSE ---
transfered Pt was brought up from [facility]. Resting in bed.
[2021-05-19] MEDS: pantoprazole DR 40 mg Tablet PO (10:18)
[2021-05-19] MEDS: ascorbic acid 500 mg Tablet PO ×2 (10:18→17:21)
[2021-05-19] MEDS: zinc gluconate 50 mg Tablet PO (10:18)
--- NOTE | 2021-05-19 10:33 | PC.NURSE ---
pressure injury prior to this shift was charted on wrong side. wound is on left buttock.
[2021-05-19] MEDS: budesonide 0.5 mg/2 mL Neb INHALATION ×2 (11:50→20:38)
--- NOTE | 2021-05-19 12:00 | P.PN_ITS ---
Subjective Subjective: Interval history: No acute events overnight. Vitals and labs have been reviewed. Patient continues to be not cooperative with his nasal cannula oxygen.It has been very difficult to keep his nasal cannula on. Vitals/I&O/Wt Last Vital Signs Temp 98.0 F 05/19/21 08:00 Pulse 92 05/19/21 11:53 Resp 20 H 05/19/21 11:41 BP 125/88 05/19/21 08:00 Pulse Ox 91 05/19/21 11:41 05/18/21 05/19/21 05/19/21 22:59 06:59 14:59 Intake Total 250 / 1612 1100 / 2712 396.667 / 396.667 Output Total Balance 250 / 1612 1099 / 2711 396.667 / 396.667 Physical Exam HENMT: COMMON NORMALS: normocephalic and atraumatic HEAD & SCALP: normocephalic and atraumatic Resp: EFFORT & INSPECTION: Yes symmetric chest movement OTHER: Bilateral diminished breath sounds Cardio: COMMON NORMALS: regular rate, regular rhythm, S1 normal heart sound present, S2 normal heart sound present, No gallops present (Cardio), No murmurs present (Cardio), No rub (Cardio) and Peripheral pulses 2+ throughout RATE: regular rate RHYTHM: regular rhythm HEART SOUNDS: S1 normal heart sound present and S2 normal heart sound present PERIPHERAL PULSES: Peripheral pulses 2+ throughout GI: COMMON NORMALS: Normal to inspection, nondistended, normoactive bowel sounds present, Soft to palpation, non-tender, No hepatosplenomegaly present and no masses AUSCULTATION: Yes normoactive bowel sounds PALPATION: Yes Soft to palpation and Yes No hepatosplenomegaly present RECTAL EXAM: Yes deferred Extremity: COMMON NORMALS: no clubbing, cyanosis or edema and no pedal edema Data : 05/19/21 04:30 05/19/21 04:30 Micro: Microbiology 05/17/21 11:40 Blood Culture - Preliminary Blood NEGATIVE TO DATE 05/17/21 11:35 Blood Culture - Preliminary Blood NEGATIVE TO DATE A&P Assessment and plan (1) Pneumonia due to COVID-19 virus: Pneumonia due to COVID-19: Will complete 3-day course of remdesivir. As well as 3-day course of IV dexamethasone. Continue levofloxacin 750 mg IV daily. Blood culture:NTD Procalcitonin:Normal Currently patient is saturating well on minimal supplemental oxygen. Continue to follow Covid protocol. Status: Acute (2) Pulmonary embolism: Currently he is on Lovenox 70 subcu twice daily. We will readdress the long-term anticoagulation risk and benefit with the patient guardian. Given his overall condition it would be prudent not to continue long-term anticoagulation. Status: Acute (3) Thrombocytopenia: Monitor CBC. Status: Acute (4) Elevated lactic acid level: Likely secondary dehydration. 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
[2021-05-19] MEDS: levofloxacin-dextrose 5 % 750 MG/150 ML PREMIX 100 MG IV (13:46)
[2021-05-19] MEDS: dexamethasone 4 mg/mL INJ 6 MG IVP (15:33)
[2021-05-19] MEDS: remdesivir 100 MG in sodium chloride 0.9% (100 ml) 100 ML IV (17:20)
--- NOTE | 2021-05-19 20:50 | PC.NURSE ---
pt currently difficult to keep O2 on. To better ensure pt maintianing O2 saturation it was asked to plae patient on continuous pulse ox to which hospitalist agreed. At first assesment pt is currently on room air saturating at 90%. Will monitor closely through out the night and provide notes on any changes.
[2021-05-20] VITALS (8 sets, daily range): BP systolic 116–148; BP diastolic 70–90; PULSE 68–123; RESP 16–18; TEMP 36.8–37.6; O2SAT 83–95
--- NOTE | 2021-05-20 04:37 | PC.NURSE ---
multiple nurses attempted IV on patient with no success. Dr Levine attempts with ultrasound were also unsuccessful do to patient compulsion to move. Will continue to try
[2021-05-20] MEDS: enoxaparin 80 mg/0.8 mL Syringe 70 MG SUBCUT (04:48)
[2021-05-20] MEDS: zinc gluconate 50 mg Tablet PO (08:02)
[2021-05-20] MEDS: ascorbic acid 500 mg Tablet PO (08:02)
[2021-05-20] MEDS: pantoprazole DR 40 mg Tablet PO (08:02)
[2021-05-20 08:45] LABS: Basophils % 0.1 %; Hematocrit 45.8 % (42.0-52.0); Hemoglobin 15.1 g/dL (11.7-16.6); Lymphocytes # 0.7 10^3/uL (0.8-4.8); Lymphocytes % 7.4 %; Mean Corpuscular Hemoglobin 30.6 pg (28.0-34.0); Mean Corpuscular Volume 92.7 fL (80-94); Mean Platelet Volume 12.5 fL (7.4-10.4); Monocytes # 1.2 10^3/uL (0.2-0.9); Monocytes % 12.4 %; Neutrophils # 7.47 10^3/uL (1.8-7.7); Neutrophils % 79.6 %; Nucleated Red Blood Cells % 0 %; Platelet Count 111 10^3/cmm (130-400); Red Blood Count 4.94 10^6/uL (4.1-5.3); Red Cell Distribution Width 13.4 % (12.1-15.1); White Blood Count 9.4 10^3/uL (4.0-10.0)
[2021-05-20 09:02] LABS: D Dimer <= 0.27 ug/mIFEU (0-0.59)
[2021-05-20 09:22] LABS: Alanine Aminotransferase 56 U/L (0-41); Albumin Level 3.3 g/dL (3.5-5.2); Alkaline Phosphatase 101 IU/L (40-130); Anion Gap 14.9 (5-19); Aspartate Amino Transferase 96 U/L (0-40); Blood Urea Nitrogen 14 mg/dL (8-23); Calcium 7.8 mg/dL (8.5-10.5); Carbon Dioxide 22 mmol/L (22-29); Chloride 109 mmol/L (98-107); Globulin 2.4 g/dL (1.3-4.6); Glomerular Filtration Rate 113.9 mL/min (90-130); Glucose 95 mg/dL (65-115); Osmolality Calculated 294 mOsm/kg (285-295); Potassium 3.9 mmol/L (3.5-5.1); Sodium 142 mmol/L (136-145); Total Bilirubin 0.4 mg/dL (0.15-1.2); Total Protein 5.7 g/dL (6.6-8.7)
[2021-05-20 09:35] LABS: C Reactive Protein 24.7 mg/L (0.0-4.9)
[2021-05-20 09:46] LABS: Ferritin 1069 ng/mL (30-400)
[2021-05-20 10:29] LABS: Erythrocyte Sedimentation Rate 17 mm/hr (0-10)
--- NOTE | 2021-05-20 12:09 | P.DS_ITS ---
Discharge Providers Date of Admission: 05/17/21 14:15 Date of Discharge: May 20, 2021 Attending Provider at Admission: Rajat Carreno MD Attending Provider at Discharge: Rajat Carreno MD Primary Care Provider: MANDI Stewart Diagnoses at Discharge Discharge Diagnosis (1) Pneumonia due to COVID-19 virus: Status: Acute (2) Pulmonary embolism: Status: Acute (3) Thrombocytopenia: Status: Chronic (4) Elevated lactic acid level: Status: Resolved Reason for Visit Reason for Visit: WEAKNESS, ONSET THIS MORNING, LETHARGY Hospital Course Hospital Course 65-year-old male from [facility] brought by EMS for worsening deterioration after being diagnosed with COVID-19. Patient himself is completely nonverbal. He is a quadriplegic. EMS records states he was diagnosed with COVID-19 over the weekend. They state upon arrival patient was febrile at 101 and hypoxic in the 80s. They placed him on 10L via non-rebreather. Upon arrival in the ER he was worked up for above-mentioned,: Imaging studies: CT angio chest: Very small, nonocclusive age-indeterminate emboli in the proximal upper lobe pulmonary arteries and distal LEFT lower lobe pulmonary artery. Bilateral scattered pulmonary opacifications and probable reactive lymphadenopathy. Pneumonitis and pneumonia should be considered. XR chest :Emphysematous change and interstitial prominence. He was admitted for the management of Covid pneumonia with possible superimposed aspiration pneumonia. Patient was kept on Covid protocol, was kept on remdesivir, IV dexamethasone, zinc, ascorbic acid, levofloxacin, nebulization, patient was having hard time keeping his nasal cannula on, for most part he was requiring 2 L oxygen to maintain his saturation, for his diagnosis of PE on CT angio chest he was kept on full dose anticoagulation with Lovenox, was discharged on Eliquis.Elevated lactic acidosis present on admission was likely secondary to dehydration, had resolved the time of discharge, blood cultures were negative at the time of discharge.He was discharged on 4 mg p.o. dexamethasone for additional 7 days along with Advair inhaler.As well as levofloxacin for additional 7 days. At the time of discharge patient was requiring 2 L oxygen via nasal cannula.Overall patient responded well to the above medical management and was discharged in stable condition to the detention. Physical Exam Narrative: EXAM NARRATIVE: Patient is non verbal at baseline , awake, HENMT: COMMON NORMALS: normocephalic and atraumatic HEAD & SCALP: normocephalic and atraumatic Resp: COMMON NORMALS: normal respiratory effort and clear to auscultation bilaterally EFFORT & INSPECTION: Yes symmetric chest movement AUSCULTATION: clear to auscultation bilaterally Cardio: COMMON NORMALS: regular rate, regular rhythm, S1 normal heart sound present, S2 normal heart sound present, No gallops present (Cardio), No murmurs present (Cardio), No rub (Cardio) and Peripheral pulses 2+ throughout RATE: regular rate RHYTHM: regular rhythm HEART SOUNDS: S1 normal heart sound present and S2 normal heart sound present PERIPHERAL PULSES: Peripheral pulses 2+ throughout GI: COMMON NORMALS: Normal to inspection, nondistended, normoactive bowel diamond nds present, Soft to palpation, non-tender, No hepatosplenomegaly present and no masses AUSCULTATION: Yes normoactive bowel sounds PALPATION: Yes Soft to palpation and Yes No hepatosplenomegaly present RECTAL EXAM: Yes deferred Extremity: COMMON NORMALS: no clubbing, cyanosis or edema NARRATIVE EXTREMITY EXAM: 1 + B/L L/E Edema Discharge Data Data Completed and Pending: Completed Studies During Hospitalization Category Date Time Status CT angio chest PE protcl [id number] Stat Cat Scan 05/17/21 13:28 Completed XR chest 1V christina ble [id number] Stat Exams 05/17/21 10:45 Completed Pending at discharge Category Date Time Status Blood Culture Sta t Lab 05/17/21 11:40 Results Urinalysis Stat Lab 05/17/21 13:31 Uncollected Labs from last 24 hours 05/20/21 05/20/21 05/20/21 08:26 08:26 08:26 WBC 9.4 RBC 4.94 Hgb 15.1 Hct 45.8 MCV 92.7 MCH 30.6 MCHC 33.0 RDW 13.4 Plt Count 111 L MPV 12.5 H Neut % (Auto) 79.6 Lymph % (Auto) 7.4 [place] % (Auto) 12.4 Eos % (Auto) 0.0 Baso % (Auto) 0.1 Neut # (Auto) 7.47 Lymph # (Auto) 0.7 L [place] # (Auto) 1.2 H Eos # (Auto) 0.0 Baso # (Auto) 0.0 Nucleated RBC % (a uto) 0 Nucleated RBCs # 0.0 ESR D-Dimer Sodium 142 Potassium 3.9 Chloride 109 H Carbon Dioxide 22 Anion Gap 14.9 BUN 14 Creatinine 0.7 GFR Calculation 113.9 Glucose 95 Calculated Osmolal ity 294 Calcium 7.8 L Ferritin 1069 H Total Bilirubin 0.4 AST 96 H ALT 56 H Alkaline Phosphata se 101 C-Reactive Protein Total Protein 5.7 L Albumin 3.3 L Globulin 2.4 05/20/21 05/20/21 05/20/21 08:26 08:26 08:26 WBC RBC Hgb Hct MCV MCH MCHC RDW Plt Count MPV Neut % (Auto) Lymph % (Auto) [place] % (Auto) Eos % (Auto) Baso % (Auto) Neut # (Auto) Lymph # (Auto) [place] # (Auto) Eos # (Auto) Baso # (Auto) Nucleated RBC % (a uto) Nucleated RBCs # ESR 17 H D-Dimer <= 0.27 Sodium Potassium Chloride Carbon Dioxide Anion Gap BUN Creatinine GFR Calculation Glucose Calculated Osmolal ity Calcium Ferritin Total Bilirubin AST ALT Alkaline Phosphata se C-Reactive Protein 24.7 H Total Protein Albumin Globulin Vitals: Last Vital Signs Temp 99.7 F H 05/20/21 08:00 Pulse 68 05/20/21 09:11 Resp 18 05/20/21 09:11 BP 118/70 05/20/21 08:00 Pulse Ox 86 L 05/20/21 10:21 Discharge Plan Discharge Patient Disposition: Home Condition: Stable Prescriptions: New Advair Diskus 100-50 mcg/dose blister with device 1 inh inhalation BID Qty: 60 RF: 0 dexamethasone 4 mg tablet 4 mg PO DAILY Qty: 7 RF: 0 levofloxacin 500 mg tablet 500 mg PO DAILY 7 Days RF: 0 Eliquis 5 mg tablet 5 mg PO BID Qty: 60 RF: 3 Continued multivitamin Tablet 1 tab PO DAILY@08 RF: 0 Abreva 10 % Cream 1 applic TOPICAL DAILY PRN (Reason: Cold Sores) RF: 0 sennosides 8.6 mg Tablet 8.6 mg PO DAILY@08 RF: 0 acetaminophen 325 mg Tablet 650 mg PO Q6H PRN (Reason: Pain) RF: 0 Paxil 10 mg Tablet 10 mg PO DAILY@08 RF: 0 atorvastatin 20 mg Tablet 20 mg PO DAILY@20 RF: 0 Tussin DM 10-100 mg/5 mL syrup 5 ml PO Q4H PRN (Reason: Cough) RF: 0 famotidine 20 mg Tablet 20 mg PO DAILY PRN (Reason: Heartburn) RF: 0 magnesium hydroxide 400 mg/5 mL Suspension 30 ml PO DAILY PRN (Reason: Constipation) RF: 0 Vitamin C 250 mg Tablet 250 mg PO DAILY@12 RF: 0 pantoprazole 40 mg Tablet,Delayed Release (Dr/Ec) 40 mg PO DAILY@08 RF: 0 olopatadine 0.1 % Drops 1 drp OPHTHALMIC (EYE) BID PRN (Reason: ALLERGIES) RF: 0 levetiracetam 750 mg tablet 1,500 mg PO BID@08,20 RF: 0 mupirocin 2 % Ointment 1 applic TOPICAL TID@08,,20 RF: 0 polyethylene glycol 3350 17 gram/dose powder 17 g PO DAILY@08 RF: 0 fluticasone propionate 50 mcg/actuation [place],Suspension 1 spray INTRANASAL DAILY@08 RF: 0 loratadine 10 mg Tablet 10 mg PO DAILY PRN (Reason: Allergy Symptoms) RF: 0 lactulose 10 gram/15 mL solution 30 ml PO . DAILY@08 AND PRN RF: 0 Calmoseptine 0.44-20.6 % Ointment 1 applic TOPICAL .ONCE TO TWICE DAILY PRN (Reason: ULCER/SKIN BREAKDOWN) RF: 0 perampanel 8 mg Tablet 8 mg PO DAILY@20 RF: 0 olopatadine 0.7 % Drops 2 drp ophthalmic (eye) DAILY PRN (Reason: Dry Eyes) RF: 0 Discharge Orders: Discharge Order (Routine); Ordered 05/20/21 Ordered By: Rajat Carreno Other Ambulatory Orders: DME: Oxygen (Order) Location: None Selected Ordered By: Rajat Carreno Discharge Diet: Soft Mechanical Patient Instructions: Levofloxacin (By mouth), Dexamethasone (By mouth), Fluticasone/Salmeterol (By breathing), Opioid Safety Activity Restrictions/Additional Instructions: Please follow up with primary care provider in 1 week. Patient oxygen needs to remain above 90%. May titrate oxygen up to a maximum of 5L if needed to maintain oxygen saturation. Pt to continue home adaptive equipment. Discharge Attestations Time Spent in Discharge Care*: less than 30 min Specific Discharge Activities: educating patient, educating and/or supporting family/caregiver, discussing with pcp/other providers, discussing with supportive employment case manager/social workers/dc planners, documenting/other paperwork and evaluating patient/reviewing data Status at Discharge: Cognitive status at discharge: cognitively intact , Behavioral status at discharge: cooperative , Functional status at discharge: independent ambulation Overall status at discharge: patient is back to baseline Quality Metrics Clinical Quality Measures During this hospital stay, did patient experience: None Coding Level of Care Code Acute Chg FW DC note Exam Detailed Diagnoses Pneumonia due to COVID-19 virus U07.1; J12.82 Pulmonary embolism I26.99 Thrombocytopenia D69.6 Elevated lactic acid level R79.89
--- NOTE | 2021-05-20 13:10 | PC.NURSE ---
pulse ox wire changed when o2 showed 83. retaken after replaced wire was 95% on RA.
== END 2021-05-20 15:28 | disposition home or self-care (01) | DRG 177 ==
LOC: ER 14:23 → ICU 14:25 → CSU 14:34 → MEDSURG 05-19 07:36
PROVIDERS: Physician Assistant; Admitting Provider Internal Medicine; Emergency Provider Family Medicine; PCP Nurse Practitioner Family; Visit Provider Internal Medicine
DX: U07.1 COVID-19 (principal); J12.82 Pneumonia due to coronavirus disease 2019; J69.0 Pneumonitis due to inhalation of food and vomit; G82.50 Quadriplegia, unspecified; I26.99 Other pulmonary embolism without acute cor pulmonale; E87.2 Acidosis; D69.6 Thrombocytopenia, unspecified; E86.0 Dehydration
CPT/HCPCS: 36415; 36600; 71045; 71275; 80053; 82550; 82728; 82803; 83605; 83735; 83880; 84145; 84484; 85025; 85378; 85384; 85610; 85651; 85730; 86140; 87040; 87635; 87804; 93005; 94640; 94762; 96365; 96367; 96372; 96375; 99285; J1100; J1650; J1956; J7626; Q9967

== ENCOUNTER 2021-05-21 08:07 | Inpatient (IN) | payer MEDICAID, SELFPAY ==
[2021-05-21] VITALS (8 sets, daily range): BP systolic 87–118; BP diastolic 46–73; PULSE 79–120; RESP 16–36; TEMP 36.3–39.3; O2SAT 91–100; BMI 27.4
--- NOTE | 2021-05-21 08:10 | XR_ITS ---
WS: [id number] Portable AP upright chest, 05/21/2021 Clinical Data: dyspnea/cough Comparison: Portable chest, 05/17/2021 Findings: There is a minimal patchy opacity in the right upper lobe and in the left lower lobe which have developed in the last 4 days. No nodules, masses or effusions are seen. The heart is normal. Th e pulmonary vascularity is not increased. No pneumothorax is seen. The diaphragms are flattened. Ther e is a large hiatal hernia. XR/XR chest 1V portable [id number] Impression: 1. Patchy opacities in right upper lobe and left lower lobe which may represent pneumonia. 2. Hyperinflation.
--- NOTE | 2021-05-21 08:11 | ECG_ITS ---
[facility] Test Date: 2021-05-21 Pat Name: Jorge Luis Lucas Department: Room: Gender: Male Duck Operator: : 1955 Requested By: Josh Powell Order Number: [id number] Ash MD: Laurence Bearden M.D. Measurements Intervals [place] Rate: 120 P: 65 ID: 130 QRS: 53 QRSD: 90 T: 38 QT: 339 QTc: 480 Interpretive Statements SINUS TACHYCARDIA POSSIBLE RIGHT VENTRICULAR CONDUCTION DELAY [RSR (QR) IN V1/V2] Compared to ECG 05/17/2021 14:33:23 Sinus rhythm no longer present Electronically Signed On 05-21-2021 14:14:12 CDT by Laurence Bearden M.D. [id number]
[2021-05-21 08:37] LABS: ABG PCO2 30.6 mmHg (35-45); ABG PH Result 7.54 (7.35-7.45); Alveolar-Arterial Oxygen Gradi 22.5 mmHg (5-10); Arterial Blood Gas Hematocrit 46.8 % (42-52); Base Excess ABG 4.3 mmol/L (-2.0-2.0); Blood Gas Allen Test Pos; Blood Gas Operator Identificat glc; Blood Gas Sample Site Radial, right; Blood Gas Sample Type Arterial; Carboxyhemoglobin 0.6 %THgb (0.4-20.1); HCO3 ABG 26.1 mmol/L (22-26); HGB O2 Sat 84.1 % (95-100); Ionized Calcium Level - ABG 1.1 mmol/L (1.1-1.4); Methemoglobin 0.9 % (0.4-1.5); Oxygen Device NC; Oxygen Saturation ABG 85.4; PO2 ABG 45.3 mmHg (80.0-100.0); Potassium Level - ABG 3.8 mmol/L (3.5-5.0); Total Hemoglobin 15.3 g/dL (14-18)
--- NOTE | 2021-05-21 08:42 | ED_ITS ---
HPI - COVID General: Chief Complaint: COVID symptoms Stated Complaint: COVID +/ SOB Time Seen by Provider: 05/21/21 08:07 Triage information: No fever, cough or shortness of breath . History of Present Illness: HPI Narrative: 65-year-old male presents to the emergency room with hypoxia. He is recently diagnosis Covid he was hospitalized and then discharged home he returns today hypoxic MD complaint: known COVID positive Prior covid testing: yes, results known COVID 19 common symptoms: positive cough COVID 19 other sytmptoms: positive requiring oxygen Onset (ago): week(s) Severity: moderate Pertinent comorbid conditions: fpc patient and on home oxygen Treatment prior to arrival: steroids, oxygen and other (Anticoagulants) COVID Results: Nasal/Oral Coronavirus 2019 PCR Detected H 05/17/21 14:35 05/17/21 Review of Systems General: Reports: ROS unobtainable due to medical condition and ROS unobtainable due to mental status PFS ED PFSH: Medical History (Updated 05/25/21 @ 16:05 by Josh Vazquez DO) Developmental delay, profound Elevated lactic acid level Pneumonia due to COVID-19 virus Pulmonary embolism Thrombocytopenia Physical Exam HENMT: COMMON NORMALS: normocephalic and atraumatic HEAD & SCALP: normocephalic and atraumatic Eye: COMMON NORMALS: Equal, round and reactive pupils present, EOMs intact bilaterally, conjunctivae normal and no scleral icterus CONJUNCTIVA: Yes conjunctivae normal PUPIL: Yes Equal, round and reactive pupils present Neck/C-Spine: COMMON NORMALS: no JVD Resp: AUSCULTATION: rales and wheezes Cardio: COMMON NORMALS: no JVD, regular rhythm and No murmurs present (Cardio) RATE: tachycardic RHYTHM: regular rhythm GI: COMMON NORMALS: Soft to palpation and No hepatosplenomegaly present AUSCULTATION: Yes normoactive bowel sounds PALPATION: Yes Soft to palpation, No Tenderness to palpation present (GI), No Guarding due to palpation present (GI) and Yes No hepatosplenomegaly present Extremity: COMMON NORMALS: normal to inspection, capillary refill normal, no clubbing, cyanosis or edema, no calf tenderness and no pedal edema Skin: COMMON NORMALS: no rashes or lesions noted GENERAL SKIN EXAM: no rashes or lesions noted Course Vital Signs: Vital signs: Vital Signs Temperature 98.4 F 05/25/21 08:00 Pulse Rate 81 05/25/21 15:30 Respiratory Rate 15 05/25/21 14:14 Blood Pressure 137/70 05/25/21 15:30 Pulse Oximetry 92 05/25/21 15:30 MDM - COVID MDM Narrative: Medical decision making narrative: Readmit for worsening pneumonia discussed with hospitalist orders written Lab Data: Labs: Lab Results 05/21/21 05/21/21 05/21/21 Range/Units 08:28 08:30 08:30 WBC 7.2 (4.0-10.0) 10^3/ uL RBC 5.35 H (4.1-5.3) 10^6/u L Hgb 15.9 (11.7-16.6) g/dL Hct 49.6 (42.0-52.0) % MCV 92.7 (80-94) fL MCH 29.7 (28.0-34.0) pg MCHC 32.1 (30.0-36.0) g/dL RDW 13.9 (12.1-15.1) % Plt Count 114 L (130-400) 10^3/c mm MPV 12.2 H (7.4-10.4) fL Neut % (Auto) 79.0 % Lymph % (Auto) 10.7 % Hanson % (Auto) 9.9 % Eos % (Auto) 0.0 % Baso % (Auto) 0.1 % Neut # (Auto) 5.66 (1.8-7.7) 10^3/u L Lymph # (Auto) 0.8 (0.8-4.8) 10^3/u L Hanson # (Auto) 0.7 (0.2-0.9) 10^3/u L Eos # (Auto) 0.0 (0.0-0.8) 10^3/u L Baso # (Auto) 0.0 (0.0-0.1) 10^3/u L Nucleated RBC % (a uto) 0 % Nucleated RBCs # 0.0 /100WBC Specimen Type Arterial Sample Site Radial, right ABG pH 7.54 H (7.35-7.45) ABG pCO2 30.6 L (35-45) mmHg ABG pO2 45.3 L (80.0-100.0) mmH g ABG HCO3 26.1 H (22-26) mmol/L ABG O2 Saturation 85.4 ABG Base Excess 4.3 H (-2.0-2.0) mmol/ L Palmer Test Pos A-a O2 Gradient 22.5 H (5-10) mmHg Hematocrit 46.8 (42-52) % Hgb O2 Saturation 84.1 L (95-100) % Carboxyhemoglobin 0.6 (0.4-20.1) %THgb Methemoglobin 0.9 (0.4-1.5) % Total Hemoglobin 15.3 (14-18) g/dL Sodium 147.0 H (131-143) mmol/L Potassium 3.8 (3.5-5.0) mmol/L Glucose 97.0 (70-115) mg/dL Ionized Calcium 1.1 (1.1-1.4) mmol/L O2 Delivery Device Nc O2 Liters/Min 4.0 % FiO2 36.0 % Assurance Manager Insurance ID [id number] Chloride (98-107) mmol/L Carbon Dioxide (22-29) mmol/L Anion Gap (5-19) BUN (8-23) mg/dL Creatinine (0.7-1.2) mg/dL GFR Calculation (90-130) mL/min Calculated Osmolal ity (285-295) mOsm/k g Lactic Acid 3.1 H (0.5-2.2) mmol/L Calcium (8.5-10.5) mg/dL Total Bilirubin (0.15-1.2) mg/dL AST (0-40) U/L ALT (0-41) U/L Alkaline Phosphata se (40-130) IU/L Creatine Kinase (39-308) U/L C-Reactive Protein (0.0-4.9) mg/L Total Protein (6.6-8.7) g/dL Albumin (3.5-5.2) g/dL Globulin (1.3-4.6) g/dL Lipase (13-60) U/L Procalcitonin (0-0.5) ng/mL 05/21/21 05/21/21 Range/Units 08:30 08:30 WBC (4.0-10.0) 10^3/ uL RBC (4.1-5.3) 10^6/u L Hgb (11.7-16.6) g/dL Hct (42.0-52.0) % MCV (80-94) fL MCH (28.0-34.0) pg MCHC (30.0-36.0) g/dL RDW (12.1-15.1) % Plt Count (130-400) 10^3/c mm MPV (7.4-10.4) fL Neut % (Auto) % Lymph % (Auto) % Hanson % (Auto) % Eos % (Auto) % Baso % (Auto) % Neut # (Auto) (1.8-7.7) 10^3/u L Lymph # (Auto) (0.8-4.8) 10^3/u L Hanson # (Auto) (0.2-0.9) 10^3/u L Eos # (Auto) (0.0-0.8) 10^3/u L Baso # (Auto) (0.0-0.1) 10^3/u L Nucleated RBC % (a uto) % Nucleated RBCs # /100WBC Specimen Type Sample Site ABG pH (7.35-7.45) ABG pCO2 (35-45) mmHg ABG pO2 (80.0-100.0) mmH g ABG HCO3 (22-26) mmol/L ABG O2 Saturation ABG Base Excess (-2.0-2.0) mmol/ L Palmer Test A-a O2 Gradient (5-10) mmHg Hematocrit (42-52) % Hgb O2 Saturation (95-100) % Carboxyhemoglobin (0.4-20.1) %THgb Methemoglobin (0.4-1.5) % Total Hemoglobin (14-18) g/dL Sodium 148 H (131-143) mmol/L Potassium 4.5 (3.5-5.0) mmol/L Glucose 92 (70-115) mg/dL Ionized Calcium (1.1-1.4) mmol/L O2 Delivery Device O2 Liters/Min % FiO2 % Assurance Manager Insurance ID Chloride 109 H (98-107) mmol/L Carbon Dioxide 23 (22-29) mmol/L Anion Gap 20.5 H (5-19) BUN 20 (8-23) mg/dL Creatinine 1.0 (0.7-1.2) mg/dL GFR Calculation 75.5 L (90-130) mL/min Calculated Osmolal ity 308 H (285-295) mOsm/k g Lactic Acid (0.5-2.2) mmol/L Calcium 8.2 L (8.5-10.5) mg/dL Total Bilirubin 0.6 (0.15-1.2) mg/dL AST 199 H (0-40) U/L ALT 134 H (0-41) U/L Alkaline Phosphata se 110 (40-130) IU/L Creatine Kinase 269 (39-308) U/L C-Reactive Protein 75.3 H (0.0-4.9) mg/L Total Protein 5.8 L (6.6-8.7) g/dL Albumin 3.6 (3.5-5.2) g/dL Globulin 2.2 (1.3-4.6) g/dL Lipase 31 (13-60) U/L Procalcitonin 0.44 (0-0.5) ng/mL COVID Results: Nasal/Oral Coronavirus 2019 PCR Detected H 05/17/21 14:35 05/17/21 Discharge Plan Discharge Patient Disposition: Admitted As Inpatient Admit Provider: Marcell Jimenez Clinical Impression: Pneumonia due to COVID-19 virus, Pulmonary embolism, Thrombocytopenia Condition: Stable Coding Level of Care Code ED Portfolio Management Marketing for [employer] Fwd Exam Comprehensive
[2021-05-21 08:49] LABS: Basophils % 0.1 %; Hematocrit 49.6 % (42.0-52.0); Hemoglobin 15.9 g/dL (11.7-16.6); Lymphocytes # 0.8 10^3/uL (0.8-4.8); Lymphocytes % 10.7 %; Mean Corpuscular HGB Conc 32.1 g/dL (30.0-36.0); Mean Corpuscular Hemoglobin 29.7 pg (28.0-34.0); Mean Corpuscular Volume 92.7 fL (80-94); Mean Platelet Volume 12.2 fL (7.4-10.4); Monocytes # 0.7 10^3/uL (0.2-0.9); Monocytes % 9.9 %; Neutrophils # 5.66 10^3/uL (1.8-7.7); Nucleated Red Blood Cells % 0 %; Platelet Count 114 10^3/cmm (130-400); Red Blood Count 5.35 10^6/uL (4.1-5.3); Red Cell Distribution Width 13.9 % (12.1-15.1); White Blood Count 7.2 10^3/uL (4.0-10.0)
[2021-05-21 09:02] LABS: Lactic Sepsis W/Reflex 3.1 mmol/L (0.5-2.2)
[2021-05-21 09:04] LABS: Alanine Aminotransferase 134 U/L (0-41); Albumin Level 3.6 g/dL (3.5-5.2); Alkaline Phosphatase 110 IU/L (40-130); Blood Urea Nitrogen 20 mg/dL (8-23); Calcium 8.2 mg/dL (8.5-10.5); Carbon Dioxide 23 mmol/L (22-29); Chloride 109 mmol/L (98-107); Creatine Phosphokinase 269 U/L (39-308); Creatinine Clr Calc Pharmacy 73.9247; Globulin 2.2 g/dL (1.3-4.6); Glomerular Filtration Rate 75.5 mL/min (90-130); Glucose 92 mg/dL (65-115); Lipase 31 U/L (13-60); Osmolality Calculated 308 mOsm/kg (285-295); Sodium 148 mmol/L (136-145); Total Bilirubin 0.6 mg/dL (0.15-1.2); Total Protein 5.8 g/dL (6.6-8.7)
[2021-05-21 09:06] LABS: Anion Gap 20.5 (5-19); Aspartate Amino Transferase 199 U/L (0-40); Potassium 4.5 mmol/L (3.5-5.1)
[2021-05-21 10:29] LABS: Reflex Lactate Order REFLEX LACTIC ORDERD
[2021-05-21] MEDS: sodium chloride 0.9% 1,000 ML 999 ML IV (10:52)
[2021-05-21] MEDS: piperacillin-tazobactam 3.375 GM in sodium chloride 0.9% (plus) 50 ML IV ×2 (10:52→18:19)
[2021-05-21] MEDS: acetaminophen 1,000 MG/100 ML PIGGYBACK 400 MG IV (10:52)
[2021-05-21 12:27] LABS: Lactic Acid level (Lactate) 1.6 mmol/L (0.5-2.2)
--- NOTE | 2021-05-21 12:36 | PM.HP ---
Providers/Chief Complaint Admitting Physician: Marcell Jimenez MD Primary Care Provider: MANDI Stewart Chief Complaint: COVID +/ SOB History of Present Illness Jorge Luis Lucas is a 65 year old male recently hospitalized for Covid from May 17 through May 20 where he received remdesivir and dexamethasone when he was diagnosed with pulmonary emboli. He is nonverbal but from my understanding he was brought into the emergency department with fever and concern of hypoxia. He had been coughing. He had not been taking p.o. medications or drinking well. He had not been leaving oxygen on that he was discharged with. Further history is really unobtainable from the patient. Review of Systems General: Reports: ROS unobtainable due to mental status (Patient nonverbal) Medications/Allergies Home Medications Medication Instructions Recorded Confirmed Last Taken Type Calmoseptine 1 applic TOPICAL .ONCE TO TWICE 05/17/21 05/21/21 Unknown History DAILY PRN acetaminophen 650 mg PO Q6H PRN 05/17/21 05/21/21 Unknown History ascorbic acid (vitamin C) [Vitamin 250 mg PO DAILY@12 05/17/21 05/21/21 05/16/21 History C] atorvastatin 20 mg PO DAILY@20 05/17/21 05/21/21 05/16/21 History dextromethorphan-guaifenesin 5 ml PO Q4H PRN 05/17/21 05/21/21 Unknown History [Tussin DM] docosanol [Abreva] 1 applic TOPICAL DAILY PRN 05/17/21 05/21/21 Unknown History famotidine 20 mg PO DAILY PRN 05/17/21 05/21/21 Unknown History fluticasone propionate 1 spray INTRANASAL DAILY@08 05/17/21 05/21/21 05/17/21 History lactulose 30 ml PO . DAILY@08 AND PRN 05/17/21 05/21/21 05/17/21 History levetiracetam 1,500 mg PO BID@,05/17/21 05/21/21 05/17/21 08:00 History loratadine 10 mg PO DAILY PRN 05/17/21 05/21/21 Unknown History magnesium hydroxide 30 ml PO DAILY PRN 05/17/21 05/21/21 Unknown History multivitamin 1 tab PO DAILY@08 05/17/21 05/21/21 05/17/21 History mupirocin 1 applic TOPICAL TID@08,12,20 05/17/21 05/21/21 05/17/21 08:00 History olopatadine 1 drp OPHTHALMIC (EYE) BID PRN 05/17/21 05/21/21 Unknown History olopatadine 2 drp OPHTHALMIC (EYE) DAILY PRN 05/17/21 05/21/21 Unknown History pantoprazole 40 mg PO DAILY@05/17/21 05/21/21 05/17/21 08:00 History paroxetine HCl [Paxil] 10 mg PO DAILY@05/17/21 05/21/21 05/17/21 History perampanel 8 mg PO DAILY@05/17/21 05/21/21 05/16/21 History polyethylene glycol 3350 17 g PO DAILY@05/17/21 05/21/21 05/17/21 History sennosides 8.6 mg PO DAILY@05/17/21 05/21/21 05/17/21 08:00 History apixaban [Eliquis] 5 mg PO BID #60 tab 05/20/21 05/21/21 Unknown Rx dexamethasone 4 mg PO DAILY #7 tab 05/20/21 05/21/21 Unknown Rx fluticasone propion-salmeterol 1 inh INHALATION BID #60 ea 05/20/21 05/21/21 Unknown Rx [Advair Diskus] levofloxacin 500 mg PO DAILY 7 Days tab 05/20/21 05/21/21 Unknown Rx Allergies Allergy/AdvReac Type Severity Reaction Status Date / Time TIDE LAUNDRY SOAP Allergy ALGY-Rash Uncoded 05/17/21 14:49 PFSH Acute PFSH: Medical History (Updated 05/21/21 @ 12:44 by Marcell Jimenez MD) Developmental delay, profound Elevated lactic acid level Pneumonia due to COVID-19 virus Pulmonary embolism Thrombocytopenia Supplemental PFSH Information: Social history family history surgical history unobtainable as patient nonverbal Vitals/I&O/Wt Last Vital Signs Temp 102.8 F H 05/21/21 08:33 Pulse 105 H 05/21/21 10:59 Resp 36 H 05/21/21 10:59 BP 87/46 05/21/21 10:59 Pulse Ox 96 05/21/21 10:59 Weight last 48 hrs Weight 77.111 kg Physical Exam Narrative: EXAM NARRATIVE: General exam is a nonverbal patient, staring at the ceiling, who does not acknowledge my presence other than become somewhat agitated. HEENT: Atraumatic. Pupils equally round. Oropharynx dry, dry mucous membranes. Neck supple no lymphadenopathy or thyromegaly Cardiovascular tachycardic, no murmur Lungs clear no wheezing or crackles Abdomen is soft with positive bowel sounds. No obvious organomegaly is deferred Extremities no cyanosis clubbing or edema. Atrophy noted Neurologic: Significantly neurologically impaired. Right hemiparesis noted. Data : 05/21/21 08:30 05/21/21 08:30 Micro: Microbiology 05/21/21 09:30 Blood Culture - Preliminary Blood SPECIMEN COLLECTED 05/21/21 08:30 Blood Culture - Preliminary Blood SPECIMEN COLLECTED Other data: ABG demonstrates a pH 7.54, PCO2 of 30, PO2 of 45 on 4 L initially. Lactic acid 3.1, repeat 1.6 AST and ALT elevated at 199 and 134. Total bili normal at 0.6. CK 269. Albumin 3.6. Chest x-ray demonstrates bilateral opacities consistent with pneumonitis Recent CTA demonstrated pulmonary emboli EKG demonstrated sinus tachycardia, normal axis, no acute changes A&P Assessment and plan (1) Pneumonia due to COVID-19 virus: Recently in the hospital and had a course of remdesivir and dexamethasone. When I saw the patient he appeared to be saturating over 90% on room air. Oxygen as needed No plan for further remdesivir Continue dexamethasone. As the patient's p.o. status is in question he will receive the 6 mg IV every 24 hours Check CRP, procalcitonin level Zosyn prophylactically currently. He has had what appears to be nausea and dry heaves here concern for aspiration pneumonitis. Blood cultures, MRSA PCR If rapid worsening, with markedly elevated CRP could consider Actemra Check urinalysis Speech therapy evaluation, n.p.o. with the exception of a few ice chips as needed Status: Acute (2) Pulmonary embolism: Lovenox every 12 hours. I do not believe he is able to take his Eliquis p.o. currently. Status: Acute (3) Thrombocytopenia: Continue to monitor closely Status: Acute (4) Dehydration: Hydration overnight Status: Acute (5) Transaminitis: May be secondary to COVID-19. Recheck in the morning Status: Acute (6) Developmental delay, profound: Patient with baseline profound developmental delay, nonverbal Status: Acute Additional A&P Information Full code Lovenox will suffice for DVT prophylaxis Attestations Medical Necessity Statement*: Will need greater than 2 midnight stay for evaluation and treatment of pneumonitis Time Spent in Patient Care: Greater than 35 minutes Coding Level of Care Code Acute Sap Bw Developer for [facility] Diagnoses Pneumonia due to COVID-19 virus U07.1; J12.82 Pulmonary embolism I26.99 Thrombocytopenia D69.6 Dehydration E86.0 Transaminitis R74.01 Developmental delay, profound R62.50
[2021-05-21 13:08] LABS: C Reactive Protein 75.3 mg/L (0.0-4.9)
[2021-05-21 13:16] LABS: Procalcitonin 0.44 ng/mL (0-0.5)
--- NOTE | 2021-05-21 14:00 | PC.NURSE ---
Patient is non-verbal and unable to answer any admission questions. Patient has a 0.5inch x 0.5 inch sheering pressure injury to his left buttock. Optifoam placed on it at this time.
[2021-05-21] MEDS: sodium chloride 0.9% 1,000 ML 75 ML IV (14:50)
[2021-05-21] MEDS: famotidine 20 mg/2 mL INJ IVP (14:51)
[2021-05-21] MEDS: dexamethasone 4 mg/mL INJ 6 MG IVP (14:51)
[2021-05-21] MEDS: enoxaparin 80 mg/0.8 mL Syringe SUBCUT (15:00)
--- NOTE | 2021-05-21 15:48 | PC.SLP ---
Discussed with the pt's nurse. She indicated that the pt was not alert enough to participate in swallowing evaluation at the present time. RAIL CAR WELDER will attempt to follow-up with the pt tomorrow.
--- NOTE | 2021-05-21 15:50 | PC.NURSE ---
Patient is non-verbal and unable to comprehend instructions at this time. 1:1 sitter at bedside.
--- NOTE | 2021-05-21 19:20 | PC.NURSE ---
Report to Kym HAQUE at bedside at this time.
[2021-05-22] VITALS (13 sets, daily range): BP systolic 118–152; BP diastolic 74–93; PULSE 71–101; RESP 18–28; TEMP 36.6–37.7; O2SAT 87–94
--- NOTE | 2021-05-22 02:58 | XRR_ITS ---
PROCEDURE INFORMATION: Exam: XR Chest Exam date and time: 05/22/2021 2:58 AM Age: 65 years old Clinical indication: Patient HX: Covid +/ hypoxia. HX of cerebral palsy TECHNIQUE: Imaging protocol: XR of the chest. Views: 1 view. COMPARISON: CR XR chest 1V portable [id number] 05/21/2021 8:58 AM FINDINGS: Lungs: Peripheral patchy interstitial opacities are present bilaterally most notably within the right upper lobe and left lower lobes, findings compatible with a bilateral patchy interstitial pneumonia. Pleural spaces: Unremarkable. No pleural effusion. No pneumothorax. Heart/Mediastinum: Unremarkable. No cardiomegaly. Bones/joints: Unremarkable. XR/XR chest 1V portable [id number] IMPRESSION: Findings suggesting a patchy bilateral interstitial pneumonia.
[2021-05-22] MEDS: haloperidol inj 5 mg/mL INJ 1 mL 2 MG IM (03:11)
[2021-05-22] MEDS: enoxaparin 80 mg/0.8 mL Syringe SUBCUT ×2 (03:15→14:07)
[2021-05-22] MEDS: piperacillin-tazobactam 3.375 GM in sodium chloride 0.9% (plus) 50 ML IV ×3 (03:34→18:25)
[2021-05-22] MEDS: famotidine 20 mg/2 mL INJ IVP ×2 (04:23→15:27)
[2021-05-22] MEDS: sodium chloride 0.9% 1,000 ML 75 ML IV (04:54)
[2021-05-22 05:41] LABS: ABG PCO2 31.2 mmHg (35-45); ABG PH Result 7.47 (7.35-7.45); Arterial Blood Gas Hematocrit 41.7 % (42-52); Blood Gas Allen Test Pos; Blood Gas Operator Identificat HARKR; Blood Gas Sample Site Radial, right; Blood Gas Sample Type Arterial; HCO3 ABG 22.8 mmol/L (22-26); Oxygen Device HAG; PO2 ABG 57.7 mmHg (80.0-100.0)
--- NOTE | 2021-05-22 07:30 | PC.NURSE ---
Pt presents lying in bed resting with eyes open. Pt restrained with soft wrist restraints. Pts radial pulses present and full. Capillary refill less than 3 seconds, skin wnl no redness or skin breakdown noted. Pt had no s/s of pain noted. Sitter at bedside. Will continue to monitor.
[2021-05-22] MEDS: dextrose 5%-sod chloride 0.45% 1,000 ML 30 ML IV (12:31)
--- NOTE | 2021-05-22 13:18 | PC.NUTR ---
Nutrition consult received per Dr. Carreno. Did not interview pt at this time given covid precautions and nonverbal status. Noted SCHOOL TREASURER recommendation for level 2 ground diet with honey thickened liquids. Recommend Ensure Plus (honey thick) at lunch and Magic Cup at dinner for additional kcal. Recommend to assist/feed at meals and encourage intakes. See RD assessment for further details.
[2021-05-22 14:03] LABS: Bilirubin Urine Neg (Negative); Glucose Urine UA Norm (Normal); Leukocyte Esterase Urine Negative (Negative); Nitrate Urine Negative (Negative); Specific Gravity, Urine 1.015 (1.005-1.030); Urine Appearance Clear (CLEAR); Urine Color Yellow (Yellow); Urobilinogen Urine Norm (Negative); pH Urine 6 (5-7)
[2021-05-22 14:04] LABS: Add Urine Culture? No; Bacteria Urine TRACE /hpf; Blood Urine 2+ (Negative); Ketones Urine 2+ (Negative); Protein Urine Trace (Negative); RBC Urine 0-4 /hpf (0-2); WBC Urine 0-4 /hpf (0-5)
[2021-05-22] MEDS: dexamethasone 4 mg/mL INJ 6 MG IVP (14:07)
[2021-05-22] MEDS: LORazepam 2 mg/mL INJ 1 mL IVP (15:27)
--- NOTE | 2021-05-22 19:32 | PM.PN ---
Subjective Subjective: Interval history: Patient was seen and examined this morning, continue to be in restrain.Continue to be in FOCT. Vitals/I&O/Wt Last Vital Signs Temp 99.6 F 05/22/21 16:00 Pulse 82 05/22/21 18:10 Resp 22 H 05/22/21 18:10 BP 118/74 05/22/21 16:00 Pulse Ox 90 05/22/21 18:10 05/22/21 05/22/21 05/22/21 06:59 14:59 22:59 Intake Total 1110 / 2420 760 / 760 110 / 870 Output Total 150 / 150 Balance 1110 / 2420 610 / 610 110 / 720 Weight last 48 hrs Weight 77.111 kg Physical Exam HENMT: COMMON NORMALS: normocephalic and atraumatic HEAD & SCALP: normocephalic and atraumatic Resp: OTHER: Diminished air entry b/l ,coarse b/l breath sounds Cardio: COMMON NORMALS: regular rate, regular rhythm, S1 normal heart sound present, S2 normal heart sound present, No gallops present (Cardio), No murmurs present (Cardio), No rub (Cardio) and Peripheral pulses 2+ throughout RATE: regular rate RHYTHM: regular rhythm HEART SOUNDS: S1 normal heart sound present and S2 normal heart sound present PERIPHERAL PULSES: Peripheral pulses 2+ throughout GI: COMMON NORMALS: Normal to inspection, nondistended, normoactive bowel sounds present, Soft to palpation, non-tender, No hepatosplenomegaly present and no masses AUSCULTATION: Yes normoactive bowel sounds PALPATION: Yes Soft to palpation and Yes No hepatosplenomegaly present RECTAL EXAM: Yes deferred Extremity: COMMON NORMALS: no clubbing, cyanosis or edema and no pedal edema Data : 05/21/21 08:30 05/21/21 08:30 Micro: Microbiology 05/21/21 09:30 Blood Culture - Preliminary Blood NEGATIVE TO DATE 05/21/21 08:30 Blood Culture - Preliminary Blood NEGATIVE TO DATE 05/21/21 14:30 MRSA Culture - Final Nose A&P Assessment and plan (1) Pneumonia due to COVID-19 virus: Recently in the hospital and had a course of remdesivir and dexamethasone. When I saw the patient he appeared to be saturating over 90% on room air. Oxygen as needed No plan for further remdesivir Continue dexamethasone. As the patient's p.o. status is in question he will receive the 6 mg IV every 24 hours Check CRP, procalcitonin level Zosyn prophylactically currently. He has had what appears to be nausea and dry heaves here concern for aspiration pneumonitis. Blood cultures, MRSA PCR If rapid worsening, with markedly elevated CRP could consider Actemra Check urinalysis Speech therapy evaluation, n.p.o. with the exception of a few ice chips as needed Status: Acute (2) Pulmonary embolism: Lovenox every 12 hours. I do not believe he is able to take his Eliquis p.o. currently. Status: Acute (3) Thrombocytopenia: Continue to monitor closely Status: Acute (4) Dehydration: Hydration overnight Status: Acute (5) Transaminitis: May be secondary to COVID-19. Recheck in the morning Status: Acute (6) Developmental delay, profound: Patient with baseline profound developmental delay, nonverbal Status: Acute Additional A&P Information Full code Lovenox will suffice for DVT prophylaxis Attestations Medical Necessity Statement*: Patient needs to be in hospital for the management of R/F. Coding Level of Care Code Acute Lens Molder for [facility] Fwd Diagnoses Pneumonia due to COVID-19 virus U07.1; J12.82 Pulmonary embolism I26.99 Thrombocytopenia D69.6 Dehydration E86.0 Transaminitis R74.01 Developmental delay, profound R62.50
[2021-05-23] VITALS (52 sets, daily range): BP systolic 58–183; BP diastolic 43–120; PULSE 51–108; RESP 13–57; TEMP 36.4–37.3; O2SAT 79–99
[2021-05-23] MEDS: enoxaparin 80 mg/0.8 mL Syringe SUBCUT ×2 (03:23→14:32)
[2021-05-23] MEDS: piperacillin-tazobactam 3.375 GM in sodium chloride 0.9% (plus) 50 ML IV ×3 (03:23→18:26)
[2021-05-23] MEDS: famotidine 20 mg/2 mL INJ IVP ×2 (06:07→17:31)
--- NOTE | 2021-05-23 10:10 | PC.NURSE ---
Rcvd order for ABG from Dr Carreno. insurance writer put order in.
[2021-05-23 11:05] LABS: ABG PCO2 29.9 mmHg (35-45); Arterial Blood Gas Hematocrit 44.6 % (42-52); Base Excess ABG 3.4 mmol/L (-2.0-2.0); Blood Gas Allen Test Pos; Blood Gas Sample Type Arterial; Carboxyhemoglobin 0.8 %THgb (0.4-20.1); HCO3 ABG 25.2 mmol/L (22-26); HGB O2 Sat 77.9 % (95-100); Ionized Calcium Level - ABG 1.1 mmol/L (1.1-1.4); Methemoglobin 0.9 % (0.4-1.5); Oxygen Saturation ABG 79.3; PO2 ABG 39.2 mmHg (80.0-100.0); Potassium Level - ABG 2.8 mmol/L (3.5-5.0); Total Hemoglobin 14.6 g/dL (14-18)
[2021-05-23] MEDS: dextrose 5%-sod chloride 0.45% 1,000 ML 30 ML IV (11:05)
[2021-05-23] MEDS: LORazepam 2 mg/mL INJ 1 mL IVP (11:05)
[2021-05-23 11:06] LABS: Alveolar-Arterial Oxygen Gradi 50.2 mmHg (5-10); Blood Gas Operator Identificat ED; Blood Gas Sample Site Radial, left
[2021-05-23 11:07] LABS: ABG PH Result 7.54 (7.35-7.45)
[2021-05-23 12:19] LABS: Basophils % 0.1 %; Hematocrit 46.7 % (42.0-52.0); Hemoglobin 15.1 g/dL (11.7-16.6); Lymphocytes # 0.4 10^3/uL (0.8-4.8); Lymphocytes % 3.4 %; Mean Corpuscular HGB Conc 32.3 g/dL (30.0-36.0); Mean Corpuscular Hemoglobin 30.1 pg (28.0-34.0); Mean Platelet Volume 12.6 fL (7.4-10.4); Monocytes % 7.4 %; Neutrophils # 11.37 10^3/uL (1.8-7.7); Neutrophils % 88.6 %; Nucleated Red Blood Cells % 0 %; Platelet Count 142 10^3/cmm (130-400); Red Blood Count 5.02 10^6/uL (4.1-5.3); Red Cell Distribution Width 14.1 % (12.1-15.1); White Blood Count 12.8 10^3/uL (4.0-10.0)
[2021-05-23 12:48] LABS: Anion Gap 15.2 (5-19); Blood Urea Nitrogen 11 mg/dL (8-23); Calcium 8.1 mg/dL (8.5-10.5); Carbon Dioxide 24 mmol/L (22-29); Chloride 121 mmol/L (98-107); Creatinine Clr Calc Pharmacy 105.6067; Glomerular Filtration Rate 113.9 mL/min (90-130); Glucose 137 mg/dL (65-115); Osmolality Calculated 326 mOsm/kg (285-295); Potassium 3.2 mmol/L (3.5-5.1); Sodium 157 mmol/L (136-145)
--- NOTE | 2021-05-23 14:01 | PC.NURSE ---
Rcvd verbal order from Dr Carreno for BNP, CPK and insert de la cruz catheter. typewriter aligner put orders in.
[2021-05-23] MEDS: dextrose 5% 1,000 ML 100 ML IV (14:30)
[2021-05-23] MEDS: dexamethasone 4 mg/mL INJ 6 MG IVP (14:31)
[2021-05-23] MEDS: FUROsemide 10 mg/mL SDV 2mL 20 MG IVP (14:31)
[2021-05-23] MEDS: lidocaine 1% 5 ML in potassium chloride premix 100 ML 50 ML IV (14:31)
[2021-05-23 15:05] LABS: NT Pro B Type Natriuretic Pept 634 pg/mL (0-125)
--- NOTE | 2021-05-23 15:08 | PC.NURSE ---
called report to ICU and spoke with Galen.
--- NOTE | 2021-05-23 15:27 | PC.NURSE ---
patient was taken to ICU 4 while screenplay writer was in the middle of giving report to Galen. Assistant Toddler Teacher said to Galen that patient is currently on his way and when another nurse went to get on the elevator the door shut.
--- NOTE | 2021-05-23 15:30 | PC.NURSE ---
Received pt from Med surg Pt arrived in respiratory distress, has Bipap mode upon arrival. Pt noted to be in labored breathing, tachypneic and anxious. Dr. Carreno at bedside, RT at bedside and have decided to intubate patient. Pt was pre-medicated pre-intubation. Pls see e-mar for meds. successfuly intubated. Pls see critical assessment for ET size and measurement at the lip. Pls see Vent settings on RT notes and critical care assessment note. Pt has one Peripheral IV line. Attempted IV's unsuccessfully. Dr. Carreno decided to insert central line. Pre-medicated w/ propofol. Pls see e-mar. Central line placed at right IJ area w/ triple lumens via sterile process. Pt became hypotensive w/ low MAP. Levophed started per protocol. Lamb catheter is drained with 1100 urine output of clear yellow urine. Pt is resting and calm at this time.
[2021-05-23 15:34] LABS: Creatine Phosphokinase 371 U/L (39-308)
[2021-05-23] MEDS: dexmedetomidine 400 MCG in sodium chloride 0.9% (100 ml) 100 ML IV (15:35)
--- NOTE | 2021-05-23 15:53 | XRR_ITS ---
PROCEDURE INFORMATION: Exam: XR Chest Exam date and time: 05/23/2021 3:53 PM Age: 65 years old Clinical indication: Device placement; Other: Et and central line; Additional info: Et placement TECHNIQUE: Imaging protocol: XR of the chest. Views: 1 view. COMPARISON: CR (CHEST, ) 05/22/2021 3:21 AM FINDINGS: Tubes, catheters and devices: Right jugular approach central venous catheter tip terminates at the cavoatrial junction. Distal aspect of the ET tube is positioned 3.7 cm superior to the love. Lungs: There are patchy bilateral pulmonary infiltrates most prominent peripherally. This is similar to the prior study. Pleural spaces: There is minimal blunting of the left costophrenic angle and a small pleural effusion cannot be excluded. Heart/Mediastinum: Unremarkable. No cardiomegaly. Bones/joints: Unremarkable. XR/XR chest 1V portable [id number] IMPRESSION: 1. Bilateral patchy pulmonary opacities are similar to the prior study and primarily peripherally distributed. 2. Right jugular approach central venous catheter tip terminates at the cavoatrial junction. 3. Distal aspect of the ET tube is positioned 3.7 cm superior to the love.
--- NOTE | 2021-05-23 16:14 | PC.NURSE ---
Dr Carreno, at bedside, wants pt more sedated, Precedex increased to 0.7 mcg/kg/hr from ).4. Central line insertion taking place at this time.
[2021-05-23] MEDS: propofol 10 mg/mL SDV 20 mL 5 MG IVP (16:20)
--- NOTE | 2021-05-23 16:22 | PC.NURSE ---
PAUSED PRECEDEX DRIP VERBAL ORDER READ BACK FROM DR. QUESADA. STARTED VERSED DRIP ORDERED.
[2021-05-23] MEDS: vancomycin 1,250 MG/250 ML PIGGYBACK 200 MG IV (17:30)
[2021-05-23 17:34] LABS: ABG PCO2 35.8 mmHg (35-45); ABG PH Result 7.44 (7.35-7.45); Alveolar-Arterial Oxygen Gradi 55.8 mmHg (5-10); Arterial Blood Gas Hematocrit 43.2 % (42-52); Base Excess ABG 0.6 mmol/L (-2.0-2.0); Blood Gas Allen Test Pos; Blood Gas Operator Identificat GD; Blood Gas Sample Site Radial, left; Blood Gas Sample Type Arterial; Blood Gas Tidal Volume 0.45; Carboxyhemoglobin 0.2 %THgb (0.4-20.1); HCO3 ABG 24.4 mmol/L (22-26); HGB O2 Sat 98.5 % (95-100); Ionized Calcium Level - ABG 1.1 mmol/L (1.1-1.4); Oxygen Device VENT; Oxygen Saturation ABG 99.7; Total Hemoglobin 14.1 g/dL (14-18)
[2021-05-23] MEDS: etomidate 20 ML 20 MG (17:36)
[2021-05-23] MEDS: succinylcholine 20 mg/mL SDV 10mL 200 MG (17:39)
--- NOTE | 2021-05-23 18:12 | PC.NURSE ---
NGT Attempted ngt insertion with [address] Carreno notified.
--- NOTE | 2021-05-23 18:22 | PC.NURSE ---
Shift summary Pt tolerated the intubated well. Pt is resting at this time. HR- 56-60s, sinus bradycardia. BP 110/69-MAP of 82; spo2-95%. Central line on right IJ-no bleeding or hematoma felt.
--- NOTE | 2021-05-23 20:20 | PM.PN ---
Subjective Subjective: Interval history: Patient was seen and examined this morning, continue to be in restrain.Continue to be in FOID. Vitals/I&O/Wt Last Vital Signs Temp 99.1 F 05/23/21 12:00 Pulse 57 L 05/23/21 18:00 Resp 21 H 05/23/21 20:00 BP 110/69 05/23/21 18:00 Pulse Ox 97 05/23/21 20:00 05/23/21 05/23/21 05/23/21 06:59 14:59 22:59 Intake Total 110 / 1030 967 / 967 965.118 / 1932.118 Output Total 0 / 150 1100 / 1100 Balance 110 / 880 967 / 967 -134.882 / 832.118 Physical Exam HENMT: COMMON NORMALS: normocephalic and atraumatic HEAD & SCALP: normocephalic and atraumatic Resp: OTHER: Diminished air entry b/l ,coarse b/l breath sounds Cardio: COMMON NORMALS: regular rate, regular rhythm, S1 normal heart sound present, S2 normal heart sound present, No gallops present (Cardio), No murmurs present (Cardio), No rub (Cardio) and Peripheral pulses 2+ throughout RATE: regular rate RHYTHM: regular rhythm HEART SOUNDS: S1 normal heart sound present and S2 normal heart sound present PERIPHERAL PULSES: Peripheral pulses 2+ throughout GI: COMMON NORMALS: Normal to inspection, nondistended, normoactive bowel sounds present, Soft to palpation, non-tender, No hepatosplenomegaly present and no masses AUSCULTATION: Yes normoactive bowel sounds PALPATION: Yes Soft to palpation and Yes No hepatosplenomegaly present RECTAL EXAM: Yes deferred Extremity: COMMON NORMALS: no clubbing, cyanosis or edema and no pedal edema Urinary Catheter Management^: Lamb: Cath Placed During This Visit: yes Reason for Continuing Indwelling Catheter: Accurate Measurement of Urinary Output in Critically Ill Patients Urinary Catheter Date of Insertion: 05/23/21 Urinary Catheter Time of Insertion: 14:48 Data : 05/23/21 11:57 05/23/21 11:57 Micro: Microbiology 05/23/21 16:12 Gram Stain - Final Sputum - Endotracheal Tube Aspirate A&P Assessment and plan (1) Respiratory failure with hypoxia: Ac Hypoxic respiratory failure secondary to Covid pneumonia. Patient was recently discharged from hospital after receiving 4 days of remdesivir, as well as IV dexamethasone. Post readmission, he was placed on heated high flow oxygen through nasal cannula, due to worsening ABG as well as respiratory status, and his inability to tolerate BiPAP, and given high risk for aspiration.Patient was intubated and placed on mechanical ventilation.Will initiate extended course of remdesivir, given his worsening respiratory status.He has also received 1 dose of tocilizumab. We will continue to follow the Covid protocol. CT angio chest:PE protcl: Very small, nonocclusive age-indeterminate emboli in the proximal upper lobe pulmonary arteries and distal LEFT lower lobe pulmonary artery. Bilateral scattered pulmonary opacifications and probable reactive lymphadenopathy. Pneumonitis and pneumonia should be considered. Continue to monitor inflammatory markers (ESR CRP D-dimer ferritin ) Blood Culture :NTD Continue to monitor ABG Extended course of remdesivir Currently on Vanco and Zosyn On full dose anticoagulation with Lovenox On Levophed 2 mCG/HR Versed and fentanyl Monitor intake output: Avoid volume overload (current intake output which is charted is not correct as the patient is incontinent and Lamb was placed later ) DuoNebs Status: Acute (2) Pneumonia due to COVID-19 virus: Status: Acute (3) Hypernatremia: D5 water @ 75 CC/HR Monitor BMP. Status: Acute (4) Pulmonary embolism: Lovenox every 12 hours. I do not believe he is able to take his Eliquis p.o. currently. Status: Acute (5) Thrombocytopenia: Continue to monitor closely Status: Acute (6) Dehydration: Hydration overnight Status: Acute (7) Transaminitis: May be secondary to COVID-19. Recheck in the morning Status: Acute (8) Developmental delay, profound: Patient with baseline profound developmental delay, nonverbal Status: Acute Additional A&P Information Full code Lovenox will suffice for DVT prophylaxis Attestations Medical Necessity Statement*: Patient needs to be in hospital for management of respiratory failure. 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
[2021-05-23] MEDS: remdesivir 100 MG in sodium chloride 0.9% (100 ml) 100 ML IV (21:14)
--- NOTE | 2021-05-23 22:41 | PC.NURSE ---
ASSUMING CARE Patient resting in bed on mechanical ventilation, VC-AC, 26 cm at lip, 70% FiO2, TV 450, PEEP 6, Rate 16. Versed running at 4 mg/hour, zosyn running, and D5 at 75 mL/hour. Patient exhibits sluggish response to stimuli. Does not follow commands. Lamb catheter in place and draining. Right IJ CVL in place.
[2021-05-24] VITALS (86 sets, daily range): BP systolic 72–138; BP diastolic 44–89; PULSE 46–95; RESP 15–26; TEMP 35.9–37.7; O2SAT 86–98
[2021-05-24] MEDS: ipratropium-albuterol 3 mL Neb INHALATION ×4 (02:02→20:03)
[2021-05-24] MEDS: enoxaparin 80 mg/0.8 mL Syringe SUBCUT ×2 (03:23→13:49)
[2021-05-24] MEDS: piperacillin-tazobactam 3.375 GM in sodium chloride 0.9% (plus) 50 ML IV ×3 (03:23→17:52)
[2021-05-24] MEDS: vancomycin 1,250 MG/250 ML PIGGYBACK 200 MG IV ×2 (03:25→13:47)
[2021-05-24] MEDS: famotidine 20 mg/2 mL INJ IVP ×2 (03:26→15:30)
--- NOTE | 2021-05-24 03:41 | PC.NURSE ---
BRADYCARDIA Patient heart rate decreasing into mid 40's. Versed titrated from 4 mg/hour to 2 mg/hour in 1999 hour due to this. Will continue to monitor.
[2021-05-24] MEDS: dextrose 5% 1,000 ML 75 ML IV (03:48)
--- NOTE | 2021-05-24 04:22 | PC.NURSE ---
TEMPERATURE Axillary temperature 96.6. Warm blanket placed on patient, will continue to monitor.
[2021-05-24 04:23] LABS: Basophils % 0.1 %; Hematocrit 40.2 % (42.0-52.0); Hemoglobin 12.8 g/dL (11.7-16.6); Lymphocytes # 0.4 10^3/uL (0.8-4.8); Lymphocytes % 3.9 %; Mean Corpuscular HGB Conc 31.8 g/dL (30.0-36.0); Mean Corpuscular Hemoglobin 30.3 pg (28.0-34.0); Mean Corpuscular Volume 95.3 fL (80-94); Mean Platelet Volume 11.9 fL (7.4-10.4); Monocytes # 0.4 10^3/uL (0.2-0.9); Monocytes % 4.2 %; Neutrophils # 8.87 10^3/uL (1.8-7.7); Neutrophils % 91.1 %; Nucleated Red Blood Cells % 0 %; Platelet Count 168 10^3/cmm (130-400); Red Blood Count 4.22 10^6/uL (4.1-5.3); Red Cell Distribution Width 14.5 % (12.1-15.1); White Blood Count 9.7 10^3/uL (4.0-10.0)
[2021-05-24 04:40] LABS: D Dimer <= 0.27 ug/mIFEU (0-0.59)
[2021-05-24 05:12] LABS: ABG PH Result 7.43 (7.35-7.45); Blood Gas Allen Test Pos; Blood Gas Operator Identificat JB; Blood Gas Sample Site Radial, left; Blood Gas Sample Type Arterial; Oxygen Device VENT
[2021-05-24 05:15] LABS: ABG PCO2 38.2 mmHg (35-45); Arterial Blood Gas Hematocrit 33.4 % (42-52); Base Excess ABG 0.9 mmol/L (-2.0-2.0); Blood Gas Tidal Volume 0.45; HCO3 ABG 25.2 mmol/L (22-26); PO2 ABG 49.6 mmHg (80.0-100.0)
[2021-05-24 05:23] LABS: Anion Gap 12.8 (5-19); Blood Urea Nitrogen 13 mg/dL (8-23); C Reactive Protein 83.8 mg/L (0.0-4.9); Calcium 7.1 mg/dL (8.5-10.5); Carbon Dioxide 25 mmol/L (22-29); Chloride 112 mmol/L (98-107); Creatinine Clr Calc Pharmacy 105.6067; Ferritin 694 ng/mL (30-400); Glomerular Filtration Rate 113.9 mL/min (90-130); Glucose 304 mg/dL (65-115); Osmolality Calculated 316 mOsm/kg (285-295); Sodium 147 mmol/L (136-145)
[2021-05-24 05:31] LABS: Potassium 2.8 mmol/L (3.5-5.1)
[2021-05-24 06:26] LABS: Erythrocyte Sedimentation Rate 27 mm/hr (0-10)
[2021-05-24] MEDS: lidocaine 1% 5 ML in potassium chloride premix 100 ML 25 ML IV (06:43)
--- NOTE | 2021-05-24 09:12 | US_ITS ---
WS: [id number] ULTRASOUND ABDOMEN CLINICAL INFORMATION: tranamintiis COMPARISON: None. FINDINGS: Liver Size: Mild hepatomegaly Craniocaudal length: 17.4 cm. Echogenicity: Normal. Surface nodularity: None. Mass (size and location): None. Bile ducts Intrahepatic ducts: Normal. Common bile duct diameter: 0.7 cm. Gallbladder Single gallstone measuring 16 mm. Gallstones: Present Gallbladder sludge: None. Gallbladder wall thickenin.9 mm Pericholecystic fluid: None. Sonographic Pickett sign: Absent. Pancreas Normal as visualized. Spleen is not visualized. Right kidney: Normal. Hydronephrosis: None. Size: 10.7 cm x 5.0 cm x 5.4 cm Left kidney: Normal. Hydronephrosis: None. Size: 9.6 cm x 5.3 cm x 5.0 cm. Abdominal aorta and IVC Visualized portions are normal. Ascites: None. US/US abdomen complete* [id number] IMPRESSION: 1. Hepatomegaly with diffuse fatty infiltration. 2. Single gallstone measuring 16 mm.Common bile duct at the upper limits of no rmal but within normal limits. No gallbladder wall thickening or pericholecysti c fluid. 3. No hydronephrosis in either kidney.
--- NOTE | 2021-05-24 09:12 | USCV_ITS ---
Jorge Luis Lucas Age: 65 Gender: M : 1955 Exam Date: 05/24/2021 10:53 Ordering Phys: Doni Dao MD Technologist: [place] [facility] [place]: SOB BP: 103 / 61 HR: 58 Rhythm: Sinus Technical Quality: Poor MEASUREMENTS (Male / Female) Normal Values 2D ECHO LV Diastolic Diameter PLAX 3.9 cm 4.2 - 5.9 / 3.9 - 5.3 cm LV Systolic Diameter PLAX 2.5 cm IVS Diastolic Thickness 1.0 cm 0.6 - 1.0 / 0.6 - 0.9 cm IVS Systolic Thickness 1.4 cm LVPW Diastolic Thickness 0.9 cm 0.6 - 1.0 / 0.6 - 0.9 cm LVPW Systolic Thickness 1.6 cm LVOT Diameter 2.6 cm LV Ejection Fraction 2D Teich 64.9 % LV Ejection Fraction MOD 2C 62.4 % LV Ejection Fraction 2C AL 61.5 % LA Diameter 3.1 cm LA Width 3.2 cm LA Height 6.1 cm RA Width 3.1 cm RA Height 6.0 cm DOPPLER AV Peak Velocity 103.0 cm/s LVOT Peak Velocity 84.0 cm/s AV Area Cont Eq vti 4.3 cm squared AV Area Cont Eq pk 4.2 cm squared MV Area PHT 3.9 cm squared Mitral E to A Ratio 0.9 MV E' Velocity 34.5 cm/s Mitral E to MV E' Ratio 8.0 Mitral E to LV E' Lateral Ratio 7.7 Mitral E to LV E' Septal Ratio 8.5 TR Peak Velocity 97.0 cm/s TR Peak Gradient 3.8 mmHg TV Peak E Velocity 76.0 cm/s Right Atrial Pressure 3.0 mmHg Pulmonary Artery Systolic Pressu 6.8 mmHg FINDINGS Left Ventricle Normal left ventricular size and systolic function, EF 62 %. No regional wall motion abnormalities. Right Ventricle Right ventricle not well visualized. Right Atrium Right atrium not well visualized. Left Atrium Normal left atrial size. Mitral Valve No gross abnormalities noted Aortic Valve No gross abnormalities noted Tricuspid Valve Could not be visualized well Pulmonic Valve Pulmonic valve not well visualized. Pericardium No pericardial effusion. Aorta Normal aortic annulus size. CONCLUSIONS Normal left ventricular size and systolic function, EF 62 %. No regional wall motion abnormalities. No significant stenotic or regurgitant lesions. Normal cardiac chamber sizes. There is no pericardial effusion. There are no intracardiac masses. No previous study is available for comparison. Dr Rich Madison MD FACC (Electronically Signed) Final Date: 24 May 2021 20:49 S
--- NOTE | 2021-05-24 12:50 | PC.CHAP ---
Pastoral Care Encounter/Spiritual Assessment Type of Contact [] Declined wafer substrate tester visit [] Patient/Family/Request visit [] Outpatient visit [x] Follow-up visit [] Physician referral [] Code/Alert [] Routine visit [] Staff referral [] Actively dying [] Patient sleeping [] Family support [] [] Out of room [] Palliative care [] [] Receiving care in room [] Pre-surgical visit [] Trauma [] Long length of stay [] ICU visit [] Other: Relational/Emotional Strength [] Patient feels connected with others/family/visitors/staff [] Distress [] Loneliness/isolation [] Abandonment Spirituality of Patient [] Person of Emma [] Attends Sikhism of their Emma [] Believes in Prayer [] Reads Bible or Mu-Ism materials [] There are Spiritual issues to be addressed Lowerator Operator Interventions [] Prayer [] Active listening [] Non-anxious presence [] Spiritual/emotional support [] Crisis/trauma care [] Spiritual counseling [] Bereavement support [] Provided bereavement packet [] Provided Bible/devotional materials [] Provided toy/stuffed animal, coloring book to patient or family member [] Provided Communion [] Anointing/[place] [] Salvation [] Completed spiritual assessment [] Other: Impact on Illness or Injury [] Angry [] Fearful [] Anxious [] Often cries [] Exhaustion [] Unable to work [] Unable to attend jew [] Unable to walk/stand [] Unable to read [] Unable to drive [] Unable to eat/drink [] Unable to sleep [] Unable to be with family [] Patient intubated [] Other: Summary Time spent with patient
[2021-05-24] MEDS: dexamethasone 4 mg/mL INJ 6 MG IVP (13:47)
--- NOTE | 2021-05-24 14:35 | P.PN_ITS ---
Subjective Subjective: Interval history: Patient was seen this morning, remains intubated, sedated, afebrile overnight, had episodes of hypothermia overnight, still on 1 of Levophed, MAP greater than 65, 70% FiO2, urine output 1650, patient at baseline is nonverbal, , normal Vitals/I&O/Wt Last Vital Signs Temp 96.9 F L 05/24/21 06:44 Pulse 65 05/24/21 14:18 Resp 17 05/24/21 14:01 BP 105/61 05/24/21 12:00 Pulse Ox 97 05/24/21 14:01 05/23/21 05/24/21 05/24/21 22:59 06:59 14:59 Intake Total 1131.776 / 2098.776 1094.180 / 3192.956 765.565 / 765.565 Output Total 1100 / 1100 300 / 1400 250 / 250 Balance 31.776 / 998.776 794.180 / 1792.956 515.565 / 515.565 Weight last 48 hrs Weight 70.987 kg Physical Exam Narrative: EXAM NARRATIVE: Intubated, sedated, on sedation Const: COMMON NORMALS: no acute distress Eye: COMMON NORMALS: Equal, round and reactive pupils present PUPIL: Yes E qual, round and reactive pupils present OTHER: Pupils upwards going bilaterally Resp: COMMON NORMALS: normal respiratory effort, No retractions and No use of accessory muscles AUSCULTATION: diminished lung sounds (Diminished lung sounds in the lung shell) Cardio: COMMON NORMALS: regular rate, regular rhythm, S1 normal heart sound present and S2 normal heart sound present RATE: regular rate RHYTHM: regular rhythm HEART SOUNDS: S1 normal heart sound present and S2 normal heart sound present GI: COMMON NORMALS: Normal to inspection, nondistended, normoactive bowel sounds present, Soft to palpation and non-tender PALPATION: Yes Soft to palpation Extremity: COMMON NORMALS: no pedal edema OTHER: Flexion contracture of bilateral upper extremities Extensor posturing bilateral lower extremities 1+ pitting edema Psych: COMMON NORMALS: mental status grossly normal Urinary Catheter Management^: Lamb: Cath Placed During This Visit: yes Reason for Continuing Indwelling Catheter: Accurate Measurement of Urinary Output in Critically Ill Patients Urinary Catheter Date of Insertion: 05/23/21 Urinary Catheter Time of Insertion: 14:48 Data : 05/24/21 03:31 05/24/21 03:31 Micro: Microbiology 05/23/21 16:12 Gram Stain - Final Sputum - Endotracheal Tube Aspirate A&P Assessment and plan (1) Respiratory failure with hypoxia: Acute Hypoxic respiratory failure secondary to Covid pneumonia, Secondary bacterial pneumonia, pulmonary embolism, sepsis According to patient's caregiver at [facility], at baseline he is a quadriplegic, history of low palsy, developmental delay, he needs assistance for feeding, he can smile at times, can track objects, does not follow commands Patient's public service administrator is Starr Hobbs [phone] or Buster CT angio chest:PE protcl: Very small, nonocclusive age-indeterminate emboli in the proximal upper lobe pulmonary arteries and distal LEFT lower lobe pulmonary artery. Bilateral scattered pulmonary opacifications and probable reactive lymp hadenopathy. Pneumonitis and pneumonia should be considered. Patient was recently discharged from hospital after receiving 4 days of remdesivir, as well as IV dexamethasone. Post readmission, he was placed on heated high flow oxygen through nasal cannula, due to worsening ABG as well as respiratory status, and his inability to tolerate BiPAP, and given high risk for aspiration.Patient was intubated and placed on mechanical ventilation. plan: Continue intubation, mechanical ventilation, minimize PEEP, minimize FiO2 Precedex, fentanyl for sedation Continue Keppra for history of seizures Will initiate extended course of remdesivir, given his worsening respiratory status Decadron 6 mg IV push daily He has also received 1 dose of tocilizumab 05/23/2021, possible second dose tomorrow Vitamin C, zinc, vitamin D Continue broad-spectrum antibiotic therapy vancomycin, Zosyn Maintain MAP in the 65, currently on Levophed Continue to monitor inflammatory markers (ESR CRP D-dimer ferritin ) Blood Culture : So far negative MRSA PCR negative Sputum culture pending Continue to monitor ABG On full dose anticoagulation with Lovenox Monitor intake output: Avoid volume overload (current intake output which is charted is not correct as the patient is incontinent and Lamb was placed later ) As 1+ pitting edema, fluids stopped, 20mg iv lasix, as serum sodium 147 DuoNebs Full code Lovenox for DVT prophylaxis Plan for today, continue antibiotics, continue remdesivir, continue Decadron, order cardiac echo, pulmonary consulted, stop fluids Status: Acute (2) Pneumonia due to COVID-19 virus: Status: Acute (3) Hypernatremia: D5 water @ 75 CC/HR Monitor BMP. Status: Acute (4) Pulmonary embolism: Lovenox every 12 hours. I do not believe he is able to take his Eliquis p.o. currently. Status: Acute (5) Thrombocytopenia: Continue to monitor closely Status: Acute (6) Dehydration: Hydration overnight Status: Acute (7) Transaminitis: May be secondary to COVID-19. 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
[2021-05-24] MEDS: FUROsemide 10 mg/mL SDV 2mL 20 MG IVP (15:30)
--- NOTE | 2021-05-24 18:06 | PM.CONSULT ---
Providers/Reason For Consult Consulting Physician/Specialty*: Randell Galeano MD/Pulmonary Critical Care Reason for Consult*: acutge hypoxic respiratory failure secondary to COVID-19 pneumonia Requesting Physician: Doni Dao MD Attending Physician: Doni Dao MD Primary Care Provider: MANDI Stewart History of Present Illness History of Present Illness Jorge Luis Lucas is a 65 year old male from [facility] with PMH of profound developmental delay cerebral palsy recently hospitalized for COVID from May 17 to May 20 received remdesivir and dexamethosone when he was diagnosed with pulmonary emboli. He is non verbal at baseline readmitted on 05/21/21 for concerns of fever and hypoxia. On readmission patient was saturating 90% on room air. Also receiving dexamethasone but completed his remdesivir during his recent admission. Started on Zosyn and sent for blood cultures, MRSA PCR. He is on Lovenox every 12 hours for PE. Eventually started requiring heated high flow oxygen through nasal cannula and then got intubated on 05/23/2021 placed on mechanical ventilation due to worsening hypoxic respiratory failure. Reinitiated extended course of remdesivir and also received 1 dose of Tocilizumab. Pulmonary critical care consult requested to help with extubation as patient has underlying advanced cerebral palsy with limited mental status. According to patient's caregiver received house at baseline is a quadriplegic, history of low palsy, developmental delay, he needs assistance for feeding, he can smile at times, can track objects, does not follow commands. 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 Patient seen at bedside today morning Sedated intubated and connected to mechanical ventilator on 70% FiO2/450/15/6 On fentanyl 75 MCG GTT and Versed 2 mg GTT On Levophed 1 MCG TTT maps between 60-65 Labs and imaging reviewed and pertinent findings incorporated in assessment and plan Review of Systems General: Reports: ROS unobtainable due to endotracheal tube, ROS unobtainable due to medical condition and ROS unobtainable due to mental status Meds/Allergies Home Medications and Allergies Home Medications Medication Instructions Recorded Confirmed Last Taken Type Calmoseptine 1 applic TOPICAL .ONCE TO TWICE 05/17/21 05/21/21 Unknown History DAILY PRN acetaminophen 650 mg PO Q6H PRN 05/17/21 05/21/21 Unknown History ascorbic acid (vitamin C) [Vitamin 250 mg PO DAILY@12 05/17/21 05/21/21 05/16/21 History C] atorvastatin 20 mg PO DAILY@05/17/21 05/21/21 05/16/21 History dextromethorphan-guaifenesin 5 ml PO Q4H PRN 05/17/21 05/21/21 Unknown History [Tussin DM] docosanol [Abreva] 1 applic TOPICAL DAILY PRN 05/17/21 05/21/21 Unknown History famotidine 20 mg PO DAILY PRN 05/17/21 05/21/21 Unknown History fluticasone propionate 1 spray INTRANASAL DAILY@08 05/17/21 05/21/21 05/17/21 History lactulose 30 ml PO . DAILY@08 AND PRN 05/17/21 05/21/21 05/17/21 History levetiracetam 1,500 mg PO BID@08,05/17/21 05/21/21 05/17/21 08:00 History loratadine 10 mg PO DAILY PRN 05/17/21 05/21/21 Unknown History magnesium hydroxide 30 ml PO DAILY PRN 05/17/21 05/21/21 Unknown History multivitamin 1 tab PO DAILY@05/17/21 05/21/21 05/17/21 History mupirocin 1 applic TOPICAL TID@08,,05/17/21 05/21/21 05/17/21 08:00 History olopatadine 1 drp OPHTHALMIC (EYE) BID PRN 05/17/21 05/21/21 Unknown History olopatadine 2 drp OPHTHALMIC (EYE) DAILY PRN 05/17/21 05/21/21 Unknown History pantoprazole 40 mg PO DAILY@05/17/21 05/21/21 05/17/21 08:00 History paroxetine HCl [Paxil] 10 mg PO DAILY@05/17/21 05/21/21 05/17/21 History perampanel 8 mg PO DAILY@05/17/21 05/21/21 05/16/21 History polyethylene glycol 3350 17 g PO DAILY@05/17/21 05/21/21 05/17/21 History sennosides 8.6 mg PO DAILY@08 05/17/21 05/21/21 05/17/21 08:00 History apixaban [Eliquis] 5 mg PO BID #60 tab 05/20/21 05/21/21 Unknown Rx dexamethasone 4 mg PO DAILY #7 tab 05/20/21 05/21/21 Unknown Rx fluticasone propion-salmeterol 1 inh INHALATION BID #60 ea 05/20/21 05/21/21 Unknown Rx [Advair Diskus] levofloxacin 500 mg PO DAILY 7 Days tab 05/20/21 05/21/21 Unknown Rx Allergies Allergy/AdvReac Type Severity Reaction Status Date / Time TIDE LAUNDRY SOAP Allergy ALGY-Rash Uncoded 05/17/21 14:49 Current Medications Current Medications Generic Name Dose Route Start Last Admin Trade Name Freq PRN Reason Stop Dose Admin Albuterol/Ipratropium 3 ml 05/23/21 21:00 05/24/21 14:01 Ipratropium-Albuterol 3 Ml Neb INHALATION 3 ml Q6H.RESPIRATORY SHWETA Administration Ascorbic Acid 1,000 mg 05/24/21 18:00 05/24/21 17:36 Ascorbic Acid 500 Mg Tablet PO Not Given BID SHWETA Dexamethasone 6 mg 05/21/21 14:30 05/24/21 13:47 Dexamethasone 4 Mg/Ml Inj IVP 6 mg Q24H SHWETA Administration Enoxaparin Sodium 80 mg 05/21/21 14:30 05/24/21 13:49 Enoxaparin 80 Mg/0.8 Ml Syringe SUBCUT 80 mg Q12H SHWETA Administration Famotidine 20 mg 05/21/21 16:00 05/24/21 15:30 Famotidine 20 Mg/2 Ml Inj IVP 20 mg Q12H SHWETA Administration Piperacillin Sod/Tazobactam 50 mls @ 12.5 mls/hr 05/21/21 11:00 05/24/21 17:52 Sod 3.375 gm/ Sodium Chloride IV 12.5 mls/hr Q8H SHWETA Administration Levetiracetam 1,000 mg/ Sodium 110 mls @ 440 mls/hr 05/21/21 15:00 05/24/21 14:11 Chloride IV Infused Q12H SHWETA Infusion Dexmedetomidine HCl 400 mcg/ 104 mls @ 0 mls/hr 05/23/21 14:15 05/23/21 16:22 Sodium Chloride IV 0 mcg/kg/hr .Q0M SHWETA 0 mls/hr Titration Protocol Per Protocol Vancomycin/PEG/NADA/Lysine/Water 1,250 mg in 250 mls @ 200 mls/hr 05/23/21 15:30 05/24/21 15:18 Vancocin IV Infused Q12H SHWETA Infusion Norepinephrine Bitartrate 4 mg 254 mls @ 0 mls/hr 05/23/21 16:45 05/24/21 15:30 / Dextrose IV 1 mcg/min .Q0M SHWETA 3.81 mls/hr Titration Protocol Per Protocol Fentanyl 1,000 mcg/ Sodium 100 mls @ 0 mls/hr 05/23/21 19:00 05/24/21 09:12 Chloride IV 75 mcg/hr .Q0M SHWETA 7.5 mls/hr Administration Protocol Per Protocol Remdesivir 100 mg/ Sodium 100 mls @ 100 mls/hr 05/23/21 20:45 05/23/21 22:14 Chloride IV 05/27/21 21:44 Infused Q24H SHWETA Infusion Lorazepam 2 mg 05/22/21 11:29 05/23/21 11:05 Lorazepam 2 Mg/Ml Inj 1 Ml IVP 2 mg Q6H PRN Administration ANXIETY Vitamin D 1,000 unit 05/24/21 14:45 05/24/21 15:18 Cholecalciferol (Vitamin D3) 1,000 Unit Tablet PO Not Given DAILY SHWETA Zinc Gluconate 50 mg 05/24/21 14:45 05/24/21 15:18 Zinc Gluconate 50 Mg Tablet PO Not Given DAILY SHWETA PFSH Acute PFSH: Medical History (Updated 05/24/21 @ 20:51 by Randell Galeano MD) Developmental delay, profound Elevated lactic acid level Pneumonia due to COVID-19 virus Pulmonary embolism Thrombocytopenia Vitals/I&O/Wt Last Vital Signs Temp 98.1 F 05/24/21 16:00 Pulse 65 05/24/21 16:00 Resp 15 05/24/21 17:28 BP 105/61 05/24/21 16:00 Pulse Ox 98 05/24/21 17:28 05/24/21 05/24/21 05/24/21 06:59 14:59 22:59 Intake Total 1094.180 / 3192.956 765.565 / 765.565 348.26 / 1113.825 Output Total 300 / 1400 250 / 250 Balance 794.180 / 1792.956 515.565 / 515.565 348.26 / 863.825 Weight last 48 hrs Weight 156 lb 8 oz Physical Exam Narrative: EXAM NARRATIVE: PHYSICAL EXAM: General: lying in bed, sedated and intubated. HEENT:NCAT, PERRLA, EOMI Neck: Supple Lungs: Reduced breath sounds bilaterally Heart: s1/s2, RRR Abd: soft, NT, ND, BS + Normoactive Extremities: No edema, flexion contracture of bilateral upper extremities, extensor posturing bilateral lower extremities, 1+ pitting pedal edema TRANSPORTATION SUPERINTENDENT: sedated and limited TRANSPORTATION SUPERINTENDENT exam possible. SKIN: no rash Urinary Catheter Management^: Lamb: Cath Placed During This Visit: yes Reason for Continuing Indwelling Catheter: Accurate Measurement of Urinary Output in Critically Ill Patients Urinary Catheter Date of Insertion: 05/23/21 Urinary Catheter Time of Insertion: 14:48 Data Labs: Other Labs: Laboratory Results WBC 9.7 10^3/uL (4.0- 10.0) 05/24/21 03:31 RBC 4.22 10^6/uL (4.1 -5.3) 05/24/21 03:31 Hgb 12.8 g/dL (11.7-1 6.6) 05/24/21 03:31 Hct 40.2 % (42.0-52.0 ) L 05/24/21 03:31 MCV 95.3 fL (80-94) H 05/24/21 03:31 MCH 30.3 pg (28.0-34. 0) 05/24/21 03:31 MCHC 31.8 g/dL (30.0-3 6.0) 05/24/21 03:31 RDW 14.5 % (12.1-15.1 ) 05/24/21 03:31 Plt Count 168 10^3/cmm (130 -400) 05/24/21 03:31 MPV 11.9 fL (7.4-10.4 ) H 05/24/21 03:31 Neut % (Auto) 91.1 % 05/24/21 03:31 Lymph % (Auto) 3.9 % 05/24/21 03:31 [place] % (Auto) 4.2 % 05/24/21 03:31 Eos % (Auto) 0.0 % 05/24/21 03:31 Baso % (Auto) 0.1 % 05/24/21 03:31 Neut # (Auto) 8.87 10^3/uL (1.8 -7.7) H 05/24/21 03:31 Lymph # (Auto) 0.4 10^3/uL (0.8- 4.8) L 05/24/21 03:31 [place] # (Auto) 0.4 10^3/uL (0.2- 0.9) 05/24/21 03:31 Eos # (Auto) 0.0 10^3/uL (0.0- 0.8) 05/24/21 03:31 Baso # (Auto) 0.0 10^3/uL (0.0- 0.1) 05/24/21 03:31 Nucleated RBC % (a uto) 0 % 05/24/21 03:31 Nucleated RBCs # 0.0 /100WBC 05/24/21 03:31 ESR 27 mm/hr (0-10) H 05/24/21 03:31 D-Dimer <= 0.27 ug/mIFEU (0-0.59) 05/24/21 03:31 Specimen Type Arterial 05/24/21 04:58 Sample Site Radial, left 05/24/21 04:58 ABG pH 7.43 (7.35-7.45) 05/24/21 04:58 ABG pCO2 38.2 mmHg (35-45) 05/24/21 04:58 ABG pO2 49.6 mmHg (80.0-1 00.0) L 05/24/21 04:58 ABG HCO3 25.2 mmol/L (22-2 6) 05/24/21 04:58 ABG O2 Saturation 99.7 05/23/21 17:17 ABG Base Excess 0.9 mmol/L (-2.0- 2.0) 05/24/21 04:58 Palmer Test Pos 05/24/21 04:58 A-a O2 Gradient 55.8 mmHg (5-10) H 05/23/21 17:17 Hematocrit 33.4 % (42-52) L 05/24/21 04:58 Hgb O2 Saturation 98.5 % (95-100) 05/23/21 17:17 Carboxyhemoglobin 0.2 %THgb (0.4-20 .1) L 05/23/21 17:17 Methemoglobin 1.0 % (0.4-1.5) 05/23/21 17:17 Total Hemoglobin 14.1 g/dL (14-18) 05/23/21 17:17 Sodium 152.0 mmol/L (131 -143) H 05/23/21 17:17 Potassium 3.0 mmol/L (3.5-5 .0) L 05/23/21 17:17 Glucose 203.0 mg/dL (70-1 15) H 05/23/21 17:17 Ionized Calcium 1.1 mmol/L (1.1-1 .4) 05/23/21 17:17 O2 Delivery Device Vent 05/24/21 04:58 O2 Liters/Min 45.0 % 05/23/21 10:55 Mechanical Rate 14.0 05/23/21 17:17 FiO2 60.0 % 05/24/21 04:58 Tidal Volume 0.45 05/24/21 04:58 PEEP 6.0 cmH20 05/24/21 04:58 Director Telemetry ID 05/24/21 04:58 Sodium 147 mmol/L (136-1 45) H 05/24/21 03:31 Potassium 2.8 mmol/L (3.5-5 .1) L* 05/24/21 03:31 Chloride 112 mmol/L (98-10 7) H 05/24/21 03:31 Carbon Dioxide 25 mmol/L (22-29) 05/24/21 03:31 Anion Gap 12.8 (5-19) 05/24/21 03:31 BUN 13 mg/dL (8-23) 05/24/21 03:31 Creatinine 0.7 mg/dL (0.7-1. 2) 05/24/21 03:31 GFR Calculation 113.9 mL/min (90- 130) 05/24/21 03:31 Glucose 304 mg/dL (65-115 ) H 05/24/21 03:31 Calculated Osmolal ity 316 mOsm/kg (285- 295) H 05/24/21 03:31 Lactic Acid 3.1 mmol/L (0.5-2 .2) H 05/21/21 08:30 Lactic Acid (Sepsi s) 1.6 mmol/L (0.5-2 .2) 05/21/21 11:49 Calcium 7.1 mg/dL (8.5-10 .5) L 05/24/21 03:31 Ferritin 694 ng/mL (30-400 ) H 05/24/21 03:31 Total Bilirubin 0.6 mg/dL (0.15-1 .2) 05/21/21 08:30 AST 199 U/L (0-40) H 05/21/21 08:30 ALT 134 U/L (0-41) H 05/21/21 08:30 Alkaline Phosphata se 110 IU/L (40-130) 05/21/21 08:30 Creatine Kinase 371 U/L (39-308) H* 05/23/21 11:57 C-Reactive Protein 83.8 mg/L (0.0-4. 9) H 05/24/21 03:31 NT-Pro-B Natriuret Pep 634 pg/mL (0-125) H 05/23/21 11:57 Total Protein 5.8 g/dL (6.6-8.7 ) L 05/21/21 08:30 Albumin 3.6 g/dL (3.5-5.2 ) 05/21/21 08:30 Globulin 2.2 g/dL (1.3-4.6 ) 05/21/21 08:30 Lipase 31 U/L (13-60) 05/21/21 08:30 Procalcitonin 0.44 ng/mL (0-0.5 ) 05/21/21 08:30 Urine Color Cancelled 05/22/21 12:45 Urine Color Yellow (Yellow) 05/22/21 12:45 Urine Appearance Cancelled 05/22/21 12:45 Urine Appearance Clear (CLEAR) 05/22/21 12:45 Urine pH 6 (5-7) 05/22/21 12:45 Urine pH Cancelled 05/22/21 12:45 Ur Specific Gravit y 1.015 (1.005-1.0 30) 05/22/21 12:45 Ur Specific Gravit y Cancelled 05/22/21 12:45 Urine Protein Cancelled 05/22/21 12:45 Urine Protein Trace (Negative) 05/22/21 12:45 Urine Glucose (UA) Cancelled 05/22/21 12:45 Urine Glucose (UA) Norm (Normal) 05/22/21 12:45 Urine Ketones 2+ (Negative) H 05/22/21 12:45 Urine Ketones Cancelled 05/22/21 12:45 Urine Blood 2+ (Negative) H 05/22/21 12:45 Urine Blood Cancelled 05/22/21 12:45 Urine Nitrate Cancelled 05/22/21 12:45 Urine Nitrate Negative (Negati ve) 05/22/21 12:45 Urine Bilirubin Cancelled 05/22/21 12:45 Urine Bilirubin Neg (Negative) 05/22/21 12:45 Prot Sulfosalicyli c Acd Cancelled 05/22/21 12:45 Urine Urobilinogen Cancelled 05/22/21 12:45 Urine Urobilinogen Norm mg/dL (Negat dominic) 05/22/21 12:45 Ur Leukocyte Meghana ase Cancelled 05/22/21 12:45 Ur Leukocyte Meghana ase Negative (Negati ve) 05/22/21 12:45 Urine RBC 0-4 /hpf (0-2) H 05/22/21 12:45 Urine WBC 0-4 /hpf (0-5) H 05/22/21 12:45 Ur Squamous Epith Cells None /hpf (0-5) 05/22/21 12:45 Amorphous Sediment Not Reportable 05/22/21 12:45 Urine Bacteria Trace /hpf (NONE) 05/22/21 12:45 Impressions Chest X-Ray 05/23/21 15:53 IMPRESSION: 1. Bilateral patchy pulmonary opacities are similar to the prior study and primarily peripherally distributed. 2. Right jugular approach central venous catheter tip terminates at the cavoatrial junction. 3. Distal aspect of the ET tube is positioned 3.7 cm superior to the love. Abdomen Ultrasound 05/24/21 09:12 IMPRESSION: 1. Hepatomegaly with diffuse fatty infiltration. 2. Single gallstone measuring 16 mm.Common bile duct at the upper limits of normal but within normal limits. No gallbladder wall thickening or pericholecystic fluid. 3. No hydronephrosis in either kidney. Micro: Micro: Microbiology 05/23/21 16:12 Gram Stain - Final Sputum - Endotrac heal Tube Aspirate A&P Assessment and plan (1) Sepsis: Status: Acute Qualifiers: Sepsis type: sepsis due to unspecified organism Sepsis acute organ dysfunction status: unspecified Qualified Code(s): A41.9 - Sepsis, unspecified organism (2) Respiratory failure with hypoxia: Status: Acute Qualifiers: Chronicity: acute Qualified Code(s): J96.01 - Acute respiratory failure with hypoxia (3) Pulmonary embolism: Status: Acute Qualifiers: Pulmonary embolism type: single subsegmental (without acute cor pulmonale) Qualified Code(s): I26.93 - Single subsegmental pulmonary embolism without acute cor pulmonale (4) Pneumonia due to COVID-19 virus: Status: Acute (5) ARDS (adult respiratory distress syndrome): Status: Acute (6) Developmental delay, profound: Status: Acute (7) Transaminitis: Status: Acute (8) Hypokalemia: Status: Acute #Acute hypoxic respiratory failure secondary ARDS due to to COVID-19 pneumonia #CT evidence of nonocclusive PE #Altered mental status secondary to cerebral palsy and sepsis #Elevated transaminases-likely secondary to Covid #Hypokalemia 2.8 today -CTA 05/17/2021:Very small, nonocclusive age-indeterminate emboli in the proximal upper lobe pulmonary arteries and distal LEFT lower lobe pulmonary artery. Bilateral scattered pulmonary opacifications and probable reactive lymphadenopathy. Pneumonitis and pneumonia should be considered. -COVID-19 PCR + 05/17/2021, -Influenza A and B antigen, MRSA nares, sputum cultures, blood cultures negative -Afebrile last 24 hours, normal WBC count, lactic acid, procalcitonin -Elevated ESR, ferritin, CRP, and normal [id number] every 48 hours -Continue Zosyn and Vancomycin -Received remdesivir 4 doses during prior admission and currently started on extended course for 5 more days -Continue dexamethasone 6 mg daily - Continue Lovenox 80 every 12-therapeutic dose for confirmed PE on CTA 05/17/2021 -Sedated and mechanically ventilated -Currently on fentanyl 75 MCG/hour and Versed 2 mg/hour -On Keppra 1 g twice daily -Recommended to Taper off Versed and start Precedex if needed -ABG 7.4 3/38/49/25/92% saturation on CMV 450/14/6/60 percent FiO2 -Continue DuoNeb nebulizations every 6 hours scheduled -Continue to titrate down FiO2 and once FiO2 is about 35 to 40%-we will attempt to taper off sedation and breathing trial to evaluate for possible extubation -Requiring Levophed 1 mg/h to keep MAP more than 65 -Continue hemodynamic monitoring -Net +5 L since admission; -Normal renal function -Sodium 147, potassium 2.8, bicarb 25, anion gap 12, CK 371 -Improving hypernatremia, K2.8-supplemented -Received 1 dose Lasix 20 mg IV push today -Monitor renal functions, electrolytes, input and output closely -Worsening LFTs-abdominal ultrasound today showed single gallstone measuring 16 mm, no GB wall thickening or pericholecystic fluid -Sugars not well controlled; started on scale coverage -Currently NPO; Famotidine 20 mg twice daily for GI prophylaxis -Already on anticoagulation for PE-covers for DVT prophylaxis Recommendations conveyed to hospitalist, RN, RT covering the patient Consult Attestations Medical Necessity Statement: Acute hypoxic respiratory failure secondary to ARDS due to COVID-19 pneumonia and pulmonary embolism requiring intubation and mechanical ventilation and anticoagulation supportive care. Needs close ICU monitoring for respiratory status and hemodynamics Time Spent in Patient Care: (>than 50% of time spent in counselling and/or direct pt care on unit). Critical Care Time: The high probability of a clinically significant, sudden or life threatening deterioration of the patient's [respiratory, renal, hepatic, TRANSPORTATION SUPERINTENDENT, cardiac] system(s) required my full and direct attention, intervention and personal management. The critical care time is as shown. This time is in addition to time spent performing any reported procedures but includes the following: [x] Data and vital sign review and interpretation [x] Patient assessment, examination and intervention [x] Documentation [x] Medication orders and management Critical Care Time (min): 45 Coding Level of Care Code New Pt Acute Vascular Ultrasound Technician for Chg Fwd Patient Type New History Comprehensive Exam Comprehensive Medical Decision Making High Complexity Diagnoses Sepsis A41.9 Sepsis type: sepsis due to unspecified organism Sepsis acute organ dysfunction status: unspecified Respiratory failure with hypoxia J96.01 Chronicity: acute Pulmonary embolism I26.93 Pulmonary embolism type: single subsegmental (without acute cor pulmonale) Pneumonia due to COVID-19 virus U07.1; J12.82 ARDS (adult respiratory distress syndrome) J80 Developmental delay, profound R62.50 Transaminitis R74.01 Hypokalemia E87.6 Time Spent (min) 45
--- NOTE | 2021-05-24 18:59 | PC.NURSE ---
attempted OGT placement. OGT not advancing. Dr. guaman. will monitor
--- NOTE | 2021-05-24 19:07 | PC.NURSE ---
Addendum entered by Helen Walker RN 05/24/21 23:46: 58 mL versed wasted with GROVER Hernández. Original Note: 58cc versed wasted with GROVER mendoza
--- NOTE | 2021-05-24 19:45 | ECG_ITS ---
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 Measurements Intervals [place] Rate: 52 P: 47 TX: 133 QRS: 46 QRSD: 102 T: 41 QT: 477 QTc: 447 Interpretive Statements SINUS BRADYCARDIA Compared to ECG 05/21/2021 08:44:14 Sinus tachycardia no longer present Electronically Signed On 05-26-2021 0:43:56 CDT by Rich Madison M.D. [id number]
[2021-05-24] MEDS: remdesivir 100 MG in sodium chloride 0.9% (100 ml) 100 ML IV (20:01)
[2021-05-24 21:49] LABS: Anion Gap 15.4 (5-19); Blood Urea Nitrogen 14 mg/dL (8-23); Carbon Dioxide 24 mmol/L (22-29); Chloride 114 mmol/L (98-107); Glomerular Filtration Rate 97.6 mL/min (90-130); Glucose 198 mg/dL (65-115); Osmolality Calculated 316 mOsm/kg (285-295); Potassium 3.4 mmol/L (3.5-5.1); Sodium 150 mmol/L (136-145)
--- NOTE | 2021-05-24 23:48 | PC.NURSE ---
ASSUMING CARE 1900 Patient resting in bed on mechanical ventilation, FiO2 at 60%, PEEP 6, Rate 15, and TV 450. Fentanyl drip running at 75 mcg/hour. Versed drip discontinued and wasted. Lamb catheter in place and draining. Right IJ CVL in place and draining.
[2021-05-25] VITALS (53 sets, daily range): BP systolic 87–150; BP diastolic 50–91; PULSE 49–98; RESP 14–20; TEMP 35.8–37.2; O2SAT 85–99
--- NOTE | 2021-05-25 00:57 | PC.NURSE ---
BRADYCARDIA In 1900 hour, patients heart rate dropping to low 40s. Heart rate would sustain for a couple minutes and then increase to the 50s. Dr. Saavedra notified since patient hadn't been decreasing that low. Dr. Saavedra gave order for 12 lead EKG. Revealed sinus bradycardia. Will continue to monitor. Patient is normotensive with these episodes.
[2021-05-25] MEDS: ipratropium-albuterol 3 mL Neb INHALATION ×4 (02:38→20:12)
[2021-05-25] MEDS: enoxaparin 80 mg/0.8 mL Syringe SUBCUT ×2 (02:46→14:17)
[2021-05-25] MEDS: piperacillin-tazobactam 3.375 GM in sodium chloride 0.9% (plus) 50 ML IV ×3 (02:46→19:56)
[2021-05-25 04:00] LABS: Hematocrit 37.6 % (42.0-52.0); Hemoglobin 11.6 g/dL (11.7-16.6); Lymphocytes # 0.5 10^3/uL (0.8-4.8); Lymphocytes % 9.2 %; Mean Corpuscular HGB Conc 30.9 g/dL (30.0-36.0); Mean Corpuscular Hemoglobin 29.4 pg (28.0-34.0); Mean Corpuscular Volume 95.2 fL (80-94); Mean Platelet Volume 12.4 fL (7.4-10.4); Monocytes # 0.3 10^3/uL (0.2-0.9); Monocytes % 4.8 %; Neutrophils # 4.85 10^3/uL (1.8-7.7); Neutrophils % 85.5 %; Nucleated Red Blood Cells % 0 %; Platelet Count 148 10^3/cmm (130-400); Red Blood Count 3.95 10^6/uL (4.1-5.3); Red Cell Distribution Width 14.5 % (12.1-15.1); White Blood Count 5.7 10^3/uL (4.0-10.0)
[2021-05-25 04:15] LABS: Vancomycin Trough 21.6 ug/mL (10-15)
[2021-05-25 04:18] LABS: Alanine Aminotransferase 48 U/L (0-41); Albumin Level 2.4 g/dL (3.5-5.2); Alkaline Phosphatase 65 IU/L (40-130); Anion Gap 14.5 (5-19); Aspartate Amino Transferase 29 U/L (0-40); Blood Urea Nitrogen 15 mg/dL (8-23); Calcium 7.2 mg/dL (8.5-10.5); Carbon Dioxide 26 mmol/L (22-29); Chloride 114 mmol/L (98-107); Globulin 2.7 g/dL (1.3-4.6); Glomerular Filtration Rate 97.6 mL/min (90-130); Glucose 140 mg/dL (65-115); Magnesium 2.1 mg/dL (1.7-2.3); Osmolality Calculated 315 mOsm/kg (285-295); Phosphorus 2.8 mg/dL (2.5-4.5); Potassium 3.5 mmol/L (3.5-5.1); Sodium 151 mmol/L (136-145); Total Bilirubin 0.3 mg/dL (0.15-1.2); Total Protein 5.1 g/dL (6.6-8.7)
[2021-05-25 04:20] LABS: Fibrinogen 501 mg/dL (174-498); INR 1.18 (0.8-1.2)
[2021-05-25 04:22] LABS: Ammonia 68 umol/L (16-60); Lactate (Lactic Acid level) 1.3 mmol/L (0.5-2.2)
[2021-05-25 04:24] LABS: NT Pro B Type Natriuretic Pept 133 pg/mL (0-125); Procalcitonin 0.13 ng/mL (0-0.5)
[2021-05-25 04:36] LABS: Creatine Phosphokinase 85 U/L (39-308); Ferritin 620 ng/mL (30-400)
[2021-05-25 04:48] LABS: ABG PCO2 39.4 mmHg (35-45); ABG PH Result 7.43 (7.35-7.45); Arterial Blood Gas Hematocrit 40.1 % (42-52); Base Excess ABG 1.8 mmol/L (-2.0-2.0); Blood Gas Sample Site Brachial, left; Blood Gas Sample Type Arterial; Blood Gas Tidal Volume 0.45; HCO3 ABG 26.2 mmol/L (22-26); Oxygen Device VENT; PO2 ABG 69.6 mmHg (80.0-100.0)
[2021-05-25] MEDS: famotidine 20 mg/2 mL INJ IVP ×2 (04:59→15:46)
[2021-05-25 05:15] LABS: Erythrocyte Sedimentation Rate 25 mm/hr (0-10)
--- NOTE | 2021-05-25 06:00 | ECG_ITS ---
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 Measurements Intervals [place] Rate: 73 P: 44 IA: 130 QRS: 46 QRSD: 98 T: 43 QT: 416 QTc: 460 Interpretive Statements SINUS RHYTHM Compared to ECG 05/24/2021 20:00:03 Sinus bradycardia no longer present Electronically Signed On 05-26-2021 0:49:38 CDT by Rich Madison M.D. [id number]
--- NOTE | 2021-05-25 06:01 | PC.NURSE ---
SHIFT SUMMARY Patients vent settings remain the same. Fentanyl at 100 mcg/hour. Patient awake with eyes open throughout the night, does not follow commands. 550 mL urine output. Temperature up to 99.9 axillary this AM. Vancomycin re-timed by pharmacy due to elevated trough. EKG done at beginning of night, sinus bradycardia. No acute issues throughout the night.
--- NOTE | 2021-05-25 07:00 | XRR_ITS ---
PROCEDURE INFORMATION: Exam: XR Chest Exam date and time: 05/25/2021 7:00 AM Age: 65 years old Clinical indication: Dyspnea; Additional info: SOB TECHNIQUE: Imaging protocol: XR of the chest. Views: 1 view. COMPARISON: CR (CHEST, ) 05/23/2021 5:18 PM FINDINGS: An endotracheal tube and a right IJ central line in place. A Lungs: Bilateral interstitial lung infiltrates are present showing slight worsening. Pleural spaces: Unremarkable. No pleural effusion. No pneumothorax. Heart/Mediastinum: Unremarkable. No cardiomegaly. Bones/joints: Unremarkable. A moderate size hiatal hernia is again seen. XR/XR chest 1V portable [id number] IMPRESSION: No pneumothorax is seen.
[2021-05-25] MEDS: propofol 1,000 MG/100 ML INJ 2.12 MG IV (07:30)
[2021-05-25] MEDS: dextrose 5% 1,000 ML 40 ML IV (07:30)
[2021-05-25 08:13] LABS: Glucose Point of Care 100 mg/dL (70-110)
--- NOTE | 2021-05-25 08:33 | PM.PN ---
Subjective Subjective: Interval history: -No overnight events; off Levophed and off Versed -On fentanyl 100 MCG GTT but started moving a lot -Today morning chest x-ray showed ET tube high above love, recommended to push 2 cm towards love and plan was to start him on propofol -Later he was taken to head CT and and ET tube was exchanged in CT room as he was biting the tube - labs and imaging reviewed and pertinent findings incorporated in the assessement and plan Medications: Reviewed: Yes Vitals/I&O/Wt Last Vital Signs Temp 99.0 F 05/25/21 02:51 Pulse 63 05/25/21 08:19 Resp 15 05/25/21 08:19 BP 143/84 05/25/21 04:00 Pulse Ox 93 05/25/21 08:19 05/24/21 05/25/21 05/25/21 22:59 06:59 14:59 Intake Total 605.240 / 1370.805 260 / 1630.805 Output Total 700 / 950 550 / 1500 Balance -94.760 / 420.805 -290 / 130.805 Weight last 48 hrs Weight 155 lb 6.4 oz Weight 156 lb 8 oz Physical Exam Narrative: EXAM NARRATIVE: General: Lying in bed, sedated and intubated. HEENT:NCAT, PERRLA, EOMI Neck: Supple Lungs: normal breathsounds bilaterally Heart: s1/s2, RRR Abd: soft, NT, ND, BS + Normoactive Extremities: No edema, flexion contracture of bilateral upper extremities, extensor posturing bilateral lower extremities, 1+ pitting pedal edema PATTERN STORAGE CLERK: sedated and limited PATTERN STORAGE CLERK exam possible. SKIN: no rash Urinary Catheter Management^: Lamb: Cath Placed During This Visit: yes Reason for Continuing Indwelling Catheter: Accurate Measurement of Urinary Output in Critically Ill Patients Urinary Catheter Date of Insertion: 05/23/21 Urinary Catheter Time of Insertion: 14:48 Data : 05/25/21 02:39 05/25/21 02:39 Other Labs: Laboratory Results WBC 5.7 10^3/uL (4.0-10.0) 05/25/21 02:39 RBC 3.95 10^6/uL (4.1-5.3) L 05/25/21 02:39 Hgb 11.6 g/dL (11.7-16.6) L 05/25/21 02:39 Hct 37.6 % (42.0-52.0) L 05/25/21 02:39 MCV 95.2 fL (80-94) H 05/25/21 02:39 MCH 29.4 pg (28.0-34.0) 05/25/21 02:39 MCHC 30.9 g/dL (30.0-36.0) 05/25/21 02:39 RDW 14.5 % (12.1-15.1) 05/25/21 02:39 Plt Count 148 10^3/cmm (130-400) 05/25/21 02:39 MPV 12.4 fL (7.4-10.4) H 05/25/21 02:39 Neut % (Auto) 85.5 % 05/25/21 02:39 Lymph % (Auto) 9.2 % 05/25/21 02:39 Clark % (Auto) 4.8 % 05/25/21 02:39 Eos % (Auto) 0.0 % 05/25/21 02:39 Baso % (Auto) 0.0 % 05/25/21 02:39 Neut # (Auto) 4.85 10^3/uL (1.8-7.7) 05/25/21 02:39 Lymph # (Auto) 0.5 10^3/uL (0.8-4.8) L 05/25/21 02:39 Clark # (Auto) 0.3 10^3/uL (0.2-0.9) 05/25/21 02:39 Eos # (Auto) 0.0 10^3/uL (0.0-0.8) 05/25/21 02:39 Baso # (Auto) 0.0 10^3/uL (0.0-0.1) 05/25/21 02:39 Nucleated RBC % (auto) 0 % 05/25/21 02:39 Nucleated RBCs # 0.0 /100WBC 05/25/21 02:39 ESR 25 mm/hr (0-10) H 05/25/21 02:39 PT 15.40 SECONDS (12.1-14.9) H 05/25/21 02:39 INR 1.18 (0.8-1.2) 05/25/21 02:39 Fibrinogen 501 mg/dL (174-498) H 05/25/21 02:39 D-Dimer 0.40 ug/mIFEU (0-0.59) 05/25/21 02:39 Specimen Type Arterial 05/25/21 04:47 Sample Site Brachial, left 05/25/21 04:47 ABG pH 7.43 (7.35-7.45) 05/25/21 04:47 ABG pCO2 39.4 mmHg (35-45) 05/25/21 04:47 ABG pO2 69.6 mmHg (80.0-100.0) L 05/25/21 04:47 ABG HCO3 26.2 mmol/L (22-26) H 05/25/21 04:47 ABG O2 Saturation 99.7 05/23/21 17:17 ABG Base Excess 1.8 mmol/L (-2.0-2.0) 05/25/21 04:47 Palmer Test N/a 05/25/21 04:47 A-a O2 Gradient 55.8 mmHg (5-10) H 05/23/21 17:17 Hematocrit 40.1 % (42-52) L 05/25/21 04:47 Hgb O2 Saturation 98.5 % (95-100) 05/23/21 17:17 Carboxyhemoglobin 0.2 %THgb (0.4-20.1) L 05/23/21 17:17 Methemoglobin 1.0 % (0.4-1.5) 05/23/21 17:17 Total Hemoglobin 14.1 g/dL (14-18) 05/23/21 17:17 Sodium 152.0 mmol/L (131-143) H 05/23/21 17:17 Potassium 3.0 mmol/L (3.5-5.0) L 05/23/21 17:17 Glucose 203.0 mg/dL (70-115) H 05/23/21 17:17 Ionized Calcium 1.1 mmol/L (1.1-1.4) 05/23/21 17:17 O2 Delivery Device Vent 05/25/21 04:47 O2 Liters/Min 45.0 % 05/23/21 10:55 Mechanical Rate 14.0 05/23/21 17:17 FiO2 60.0 % 05/25/21 04:47 Tidal Volume 0.45 05/25/21 04:47 PEEP 6.0 cmH20 05/25/21 04:47 Enterprise Software Engineer ID Dalila 05/25/21 04:47 Sodium 151 mmol/L (136-145) H 05/25/21 02:39 Potassium 3.5 mmol/L (3.5-5.1) 05/25/21 02:39 Chloride 114 mmol/L (98-107) H 05/25/21 02:39 Carbon Dioxide 26 mmol/L (22-29) 05/25/21 02:39 Anion Gap 14.5 (5-19) 05/25/21 02:39 BUN 15 mg/dL (8-23) 05/25/21 02:39 Creatinine 0.8 mg/dL (0.7-1.2) 05/25/21 02:39 GFR Calculation 97.6 mL/min (90-130) 05/25/21 02:39 Glucose 140 mg/dL (65-115) H 05/25/21 02:39 POC Glucose 100 mg/dL (70-110) 05/25/21 07:38 Calculated Osmolality 315 mOsm/kg (285-295) H 05/25/21 02:39 Lactic Acid 3.1 mmol/L (0.5-2.2) H 05/21/21 08:30 Lactic Acid (Sepsis) 1.6 mmol/L (0.5-2.2) 05/21/21 11:49 Lactate 1.3 mmol/L (0.5-2.2) 05/25/21 02:39 Calcium 7.2 mg/dL (8.5-10.5) L 05/25/21 02:39 Phosphorus 2.8 mg/dL (2.5-4.5) 05/25/21 02:39 Magnesium 2.1 mg/dL (1.7-2.3) 05/25/21 02:39 Ferritin 620 ng/mL (30-400) H 05/25/21 02:39 Total Bilirubin 0.3 mg/dL (0.15-1.2) 05/25/21 02:39 AST 29 U/L (0-40) 05/25/21 02:39 ALT 48 U/L (0-41) H 05/25/21 02:39 Alkaline Phosphatase 65 IU/L (40-130) 05/25/21 02:39 Ammonia 68 umol/L (16-60) H 05/25/21 02:39 Creatine Kinase 85 U/L (39-308) 05/25/21 02:39 C-Reactive Protein 50.0 mg/L (0.0-4.9) H 05/25/21 02:39 NT-Pro-B Natriuret Pep 133 pg/mL (0-125) H 05/25/21 02:39 Total Protein 5.1 g/dL (6.6-8.7) L 05/25/21 02:39 Albumin 2.4 g/dL (3.5-5.2) L 05/25/21 02:39 Globulin 2.7 g/dL (1.3-4.6) 05/25/21 02:39 Lipase 31 U/L (13-60) 05/21/21 08:30 Procalcitonin 0.13 ng/mL (0-0.5) 05/25/21 02:39 Urine Color Cancelled 05/22/21 12:45 Urine Color Yellow (Yellow) 05/22/21 12:45 Urine Appearance Cancelled 05/22/21 12:45 Urine Appearance Clear (CLEAR) 05/22/21 12:45 Urine pH 6 (5-7) 05/22/21 12:45 Urine pH Cancelled 05/22/21 12:45 Ur Specific [place] 1.015 (1.005-1.030) 05/22/21 12:45 Ur Specific [place] Cancelled 05/22/21 12:45 Urine Protein Cancelled 05/22/21 12:45 Urine Protein Trace (Negative) 05/22/21 12:45 Urine Glucose (UA) Cancelled 05/22/21 12:45 Urine Glucose (UA) Norm (Normal) 05/22/21 12:45 Urine Ketones 2+ (Negative) H 05/22/21 12:45 Urine Ketones Cancelled 05/22/21 12:45 Urine Blood 2+ (Negative) H 05/22/21 12:45 Urine Blood Cancelled 05/22/21 12:45 Urine Nitrate Cancelled 05/22/21 12:45 Urine Nitrate Negative (Negative) 05/22/21 12:45 Urine Bilirubin Cancelled 05/22/21 12:45 Urine Bilirubin Neg (Negative) 05/22/21 12:45 Prot Sulfosalicylic Acd Cancelled 05/22/21 12:45 Urine Urobilinogen Cancelled 05/22/21 12:45 Urine Urobilinogen Norm mg/dL (Negative) 05/22/21 12:45 Ur Leukocyte Esterase Cancelled 05/22/21 12:45 Ur Leukocyte Esterase Negative (Negative) 05/22/21 12:45 Urine RBC 0-4 /hpf (0-2) H 05/22/21 12:45 Urine WBC 0-4 /hpf (0-5) H 05/22/21 12:45 Ur Squamous Epith Cells None /hpf (0-5) 05/22/21 12:45 Amorphous Sediment Not Reportable 05/22/21 12:45 Urine Bacteria Trace /hpf (NONE) 05/22/21 12:45 Vancomycin Trough 21.6 ug/mL (10-15) H 05/25/21 02:39 Impressions Abdomen Ultrasound 05/24/21 09:12 IMPRESSION: 1. Hepatomegaly with diffuse fatty infiltration. 2. Single gallstone measuring 16 mm.Common bile duct at the upper limits of normal but within normal limits. No gallbladder wall thickening or pericholecystic fluid. 3. No hydronephrosis in either kidney. Chest X-Ray 05/25/21 07:00 IMPRESSION: No pneumothorax is seen. Head CT 05/25/21 09:04 IMPRESSION: 1. No evidence of intracranial hemorrhage or mass effect. 2. Mild small vessel changes. Moderate parenchymal volume loss. 3. 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 4. Paranasal sinus fluid and opacification as described above. A&P Assessment and plan (1) Sepsis: Status: Acute Qualifiers: Sepsis type: sepsis due to unspecified organism Sepsis acute organ dysfunction status: unspecified Qualified Code(s): A41.9 - Sepsis, unspecified organism (2) Respiratory failure with hypoxia: Status: Acute Qualifiers: Chronicity: acute Qualified Code(s): J96.01 - Acute respiratory failure with hypoxia (3) Pulmonary embolism: Status: Acute Qualifiers: Pulmonary embolism type: single subsegmental (without acute cor pulmonale) Qualified Code(s): I26.93 - Single subsegmental pulmonary embolism without acute cor pulmonale (4) Pneumonia due to COVID-19 virus: Status: Acute (5) ARDS (adult respiratory distress syndrome): Status: Acute (6) Developmental delay, profound: Status: Acute (7) Transaminitis: Status: Acute (8) Hypokalemia: Status: Acute #Acute hypoxic respiratory failure secondary ARDS due to to COVID-19 pneumonia #CT evidence of nonocclusive PE #Altered mental status secondary to cerebral palsy and sepsis #Elevated transaminases-likely secondary to Covid #Hypokalemia 3.5 today -CTA 05/17/2021:Very small, nonocclusive age-indeterminate emboli in the proximal upper lobe pulmonary arteries and distal LEFT lower lobe pulmonary artery. Bilateral scattered pulmonary opacifications and probable reactive lymphadenopathy. Pneumonitis and pneumonia should be considered. -COVID-19 PCR + 05/17/2021, -Influenza A and B antigen, MRSA nares, sputum cultures, blood cultures negative -Afebrile last 24 hours, normal WBC count, lactic acid, procalcitonin -Elevated ESR, ferritin, CRP, and normal [id number] every 48 hours -Continue Zosyn and Vancomycin -Received remdesivir 4 doses during prior admission and currently started on extended course for 5 more days -Continue dexamethasone 6 mg daily - Continue Lovenox 80 every 12-therapeutic dose for confirmed PE on CTA 05/17/2021 -Sedated and mechanically ventilated -ET tube exchanged over a bougie on 05/25/2021 -Currently on fentanyl 100 MCG/hour and tapered off Versed 2 mg/hour and started on propofol 20 MCG/hour -On Keppra 1 g twice daily -Recommended to Taper off Versed and start Precedex if needed -Head CT 05/25/2021: No acute changes. 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 -ABG 7.4 3/39/69/20 6/94% saturation on CMV 450/15/6/50 % FiO2 -Continue DuoNeb nebulizations every 6 hours scheduled -Continue to titrate down FiO2 and once FiO2 is about 35 to 40%-we will attempt to taper off sedation and breathing trial to evaluate for possible extubation -off pressor -Continue hemodynamic monitoring -Net +4 L since admission; -Normal renal function -Sodium 151, potassium 3.5, bicarb 26, anion gap 14, CK 85 -Started on D5 at 40 mL/h-we will give 500 cc and recheck BMP in the evening -Monitor renal functions, electrolytes, input and output closely -Improving LFTs-abdominal ultrasound today showed single gallstone measuring 16 mm, no GB wall thickening or pericholecystic fluid -Sugars not well controlled; started on scale coverage -Currently NPO; difficult to pass NG tube famotidine 20 mg twice daily for GI prophylaxis -Already on anticoagulation for PE-covered for DVT prophylaxis Recommendations conveyed to hospitalist, RN, RT covering the patient Attestations Medical Necessity Statement*: Acute hypoxic respiratory failure secondary to ARDS due to COVID-19 pneumonia and nonocclusive PE, difficulty weaning given his baseline dementia and underlying cerebral palsy, hypernatremia-needs close monitoring in ICU Time Spent in Patient Care: (>than 50% of time spent in counselling and/or direct pt care on unit). Critical Care Time: The high probability of a clinically significant, sudden or life threatening deterioration of the patient's [respiratory, neurologic, renal, infectious] system(s) required my full and direct attention, intervention and personal management. The critical care time is as shown. This time is in addition to time spent performing any reported procedures but includes the following: [x] Data and vital sign review and interpretation [x] Patient assessment, examination and intervention [x] Documentation [x] Medication orders and management Critical Care Time (min): 45 Coding Level of Care Code Established Pt Acute Seo Associate for Chg Fwd Patient Type Established History Comprehensive Exam Comprehensive Medical Decision Making High Complexity Diagnoses Sepsis A41.9 Sepsis type: sepsis due to unspecified organism Sepsis acute organ dysfunction status: unspecified Respiratory failure with hypoxia J96.01 Chronicity: acute Pulmonary embolism I26.93 Pulmonary embolism type: single subsegmental (without acute cor pulmonale) Pneumonia due to COVID-19 virus U07.1; J12.82 ARDS (adult respiratory distress syndrome) J80 Developmental delay, profound R62.50 Transaminitis R74.01 Hypokalemia E87.6 Time Spent (min) 45
--- NOTE | 2021-05-25 08:51 | PM.ACPR ---
Acute Procedures Intubation: Time out performed: Yes Sedative: etomidate Mg given: 20 Paralytic: succinylcholine Mg given: 120 Laryngoscope: fiber optic video scope ET tube size: 8 ET tube uncuffed: Yes Tube secured depth (cm): 26 Tube secured location: lips Tube placement confirmation: visualized tube passing through cords, equal breath sounds bilaterally and color change noted Patient tolerated procedure: well Intubation complications: none
--- NOTE | 2021-05-25 08:53 | PM.ACPR ---
Procedure/Consent Time out: Time Out Performed: Yes Acute Procedures Central Line Placement^: Right IJ: Time out performed: Yes Patient placed on monitor/pulse ox: Yes MD prep: mask, gown and gloves Central line prep: Chlorhexidine scrub and sterile drapes applied Local anesthesia used: lidocaine 1% Ultrasound used for placement: Yes Central line lumen inserted: triple Post procedure: sutured in place, good blood return and all ports aspirated, flushed, capped Post procedure x-ray: tip of catheter in good position and no pneumothorax seen Patient tolerated procedure: well Complications: none Epistaxis Control: Time out performed: Yes
--- NOTE | 2021-05-25 09:04 | CT_ITS ---
WS: [id number] CT HEAD TECHNIQUE: Noncontrast CT of the head obtained from the skullbase to the vertex. CLINICAL INFORMATION: fixed upward gaze COMPARISON: CT 10,013 DLP: 981.[address] scans at [facility] use at least one of these dose optimization techniques: automat ed exposure control; mA and/or kV adjustment per patient size (includes targeted exams where dose is matched to clinical indication); or iterative reconstruction. FINDINGS: No evidence of intracranial hemorrhage or mass effect. Ventricular system and basal cisterns are ramos nt. Mild small vessel changes with moderate parenchymal volume loss. Chronic periventricular ischemic changes unchanged from 2013. No extra-axial fluid collections. Dysgenesis of the corpus callosum. Da ndy-Walker variant with hypoplasia of the vermis. No hydrocephalus. Chronic opacification left maxillary sinus. Small amount of fluid and mucosal thickening in the righ t maxillary sinus. Partial opacification of the ethmoid air cells. Fluid with inspissated secretions within the sphenoid sinus. Mastoid air cells well aerated. Opacification of the left frontoethmoidal recess. CT/CT head wo con* [id number] IMPRESSION: 1. No evidence of intracranial hemorrhage or mass effect. 2. Mild small vessel changes. Moderate parenchymal volume loss. 3. 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 Dandy-Walker variant with v ermian hypoplasia. 4. Paranasal sinus fluid and opacification as described above.
--- NOTE | 2021-05-25 09:27 | PC.CHAP ---
Pastoral Care Encounter/Spiritual Assessment Type of Contact [] Declined clay preparation supervisor visit [] Patient/Family/Request visit [] Outpatient visit [] Follow-up visit [] Physician referral [] Code/Alert [x] Routine visit [] Staff referral [] Actively dying [] Patient sleeping [] Family support [] [] Out of room [] Palliative care [] [] Receiving care in room [] Pre-surgical visit [] Trauma [] Long length of stay [x] ICU visit [x] Other: ventilator Relational/Emotional Strength [] Patient feels connected with others/family/visitors/staff [] Distress [] Loneliness/isolation [] Abandonment Spirituality of Patient [] Person of Emma [] Attends Jew of their Emma [] Believes in Prayer [] Reads Bible or Episcopal materials [] There are Spiritual issues to be addressed Planting Material Carrier Interventions [x] Prayer [] Active listening [] Non-anxious presence [] Spiritual/emotional support [] Crisis/trauma care [] Spiritual counseling [] Bereavement support [] Provided bereavement packet [] Provided Bible/devotional materials [] Provided toy/stuffed animal, coloring book to patient or family member [] Provided Communion [] Anointing/[place] [] Salvation [x] Completed spiritual assessment [] Other: Impact on Illness or Injury [] Angry [] Fearful [] Anxious [] Often cries [] Exhaustion [] Unable to work [] Unable to attend taoism [] Unable to walk/stand [] Unable to read [] Unable to drive [] Unable to eat/drink [] Unable to sleep [] Unable to be with family [] Patient intubated [] Other: Summary Time spent with patient
[2021-05-25] MEDS: vancomycin 1,000 MG in sodium chloride 0.9% 250 ML 250 MG IV ×2 (12:05→23:14)
[2021-05-25] MEDS: dexamethasone 4 mg/mL INJ 6 MG IVP (14:17)
--- NOTE | 2021-05-25 15:56 | PM.PN ---
Subjective Subjective: Interval history: Patient was seen this morning, he continues to have a fixed upward gaze, according to nursing staff he has had this since it is admission, had episodes of agitation overnight, biting on ET tube, sedation was changed to propofol, he has been weaned off Levophed, remains afebrile, oxygen requirements have decreased to 55% FiO2, 1500 cc of urine output, Medications: Reviewed: Yes Vitals/I&O/Wt Last Vital Signs Temp 98.4 F 05/25/21 08:00 Pulse 60 05/25/21 14:14 Resp 15 05/25/21 14:14 BP 97/60 05/25/21 12:30 Pulse Ox 95 05/25/21 14:14 05/25/21 05/25/21 05/25/21 06:59 14:59 22:59 Intake Total 260 / 1630.805 271.152 / 271.152 Output Total 550 / 1500 550 / 550 Balance -290 / 130.805 -278.848 / -278.848 Weight last 48 hrs Weight 70.488 kg Weight 70.987 kg Physical Exam Narrative: EXAM NARRATIVE: Intubated, sedated, on sedation Const: COMMON NORMALS: no acute distress Eye: OTHER: Pupils upwards going bilaterally Resp: COMMON NORMALS: normal respiratory effort, No retractions and No use of accessory muscles AUSCULTATION: diminished lung sounds (Diminished lung sounds in the lung shell) Cardio: COMMON NORMALS: regular rate, regular rhythm, S1 normal heart sound present and S2 normal heart sound present RATE: regular rate RHYTHM: regular rhythm HEART SOUNDS: S1 normal heart sound present and S2 normal heart sound present GI: COMMON NORMALS: Normal to inspection, nondistended, normoactive bowel sounds present, Soft to palpation and non-tender PALPATION: Yes Soft to palpation Extremity: COMMON NORMALS: no pedal edema OTHER: Flexion contracture of bilateral upper extremities Extensor posturing bilateral lower extremities 1+ pitting edema Urinary Catheter Management^: Lamb: Cath Placed During This Visit: yes Reason for Continuing Indwelling Catheter: Accurate Measurement of Urinary Output in Critically Ill Patients Urinary Catheter Date of Insertion: 05/23/21 Urinary Catheter Time of Insertion: 14:48 Data : 05/25/21 02:39 05/25/21 02:39 Micro: Microbiology 05/23/21 16:12 Gram Stain - Final Sputum - Endotracheal Tube Aspirate Sputum Culture - Final A&P Assessment and plan (1) Respiratory failure with hypoxia: Acute Hypoxic respiratory failure secondary to Covid pneumonia, Secondary bacterial pneumonia, pulmonary embolism, sepsis According to patient's caregiver at [facility], at baseline he is a quadriplegic, history of low palsy, developmental delay, he needs assistance for feeding, he can smile at times, can track objects, does not follow commands Patient's public law firm administrator is Starr Hobbs [phone] or Buster CT angio chest:PE protcl: Very small, nonocclusive age-indeterminate emboli in the proximal upper lobe pulmonary arteries and distal LEFT lower lobe pulmonary artery. Bilateral scattered pulmonary opacifications and probable reactive lymphadenopathy. Pneumonitis and pneumonia should be considered. Patient was recently discharged from hospital after receiving 4 days of remdesivir, as well as IV dexamethasone. Post readmission, he was placed on heated high flow oxygen through nasal cannula, due to worsening ABG as well as respiratory status, and his inability to tolerate BiPAP, and given high risk for aspiration.Patient was intubated and placed on mechanical ventilation. plan: Continue intubation, mechanical ventilation, minimize PEEP, minimize FiO2 Precedex, propofol for sedation Ativan for as needed anxiety Continue Keppra for history of seizures Will initiate extended course of remdesivir, given his worsening respiratory status Decadron 6 mg IV push daily He has also received 1 dose of tocilizumab 05/23/2021, possible second dose on 05/26 based on clinical progress Vitamin C, zinc, vitamin D Continue broad-spectrum antibiotic therapy vancomycin, Zosyn Maintain MAP in the 65, currently off Levophed Continue to monitor inflammatory markers (ESR CRP D-dimer ferritin ) Blood Culture : So far negative MRSA PCR negative Sputum culture pending Continue to monitor ABG On full dose Lovenox Monitor intake output: Avoid volume overload (current intake output which is charted is not correct as the patient is incontinent and Lamb was placed later ) Minimal pitting edema Hyponatremia, serum sodium 151, on D5 water at 40 cc, will reattempt NG tube placement as previous attempts have been unsuccessful, long-term he might require PEG tube placement based on his extubation, and progress after extubation Given fixed upward gaze, head CT was ordered, no evidence of intracranial hemorrhage or mass-effect, dysgenesis of the corpus callosum was unchanged, Dandy-Walker variant with remaining hypoplasia echocardiogram of the heart shows EF of 62%, no regional wall motion abnormalities Raj Full code Lovenox for DVT prophylaxis Plan for today, continue antibiotics, continue remdesivir, continue Decadron, continue fluids Status: Acute Qualifiers: Chronicity: acute Qualified Code(s): J96.01 - Acute respiratory failure with hypoxia (2) Pneumonia due to COVID-19 virus: Status: Acute (3) Hypernatremia: D5 water @ 40 CC/HR Monitor BMP. Status: Acute (4) Pulmonary embolism: Lovenox every 12 hours. I do not believe he is able to take his Eliquis p.o. currently. Status: Acute Qualifiers: Pulmonary embolism type: single subsegmental (without acute cor pulmonale) Qualified Code(s): I26.93 - Single subsegmental pulmonary embolism without acute cor pulmonale (5) Thrombocytopenia: Continue to monitor closely Status: Acute (6) Dehydration: Hydration overnight Status: Acute (7) Transaminitis: May be secondary to COVID-19. Recheck in the morning Status: Acute (8) Developmental delay, profound: Patient with baseline profound developmental delay, nonverbal Status: Acute (9) Sepsis: Status: Acute Qualifiers: Sepsis type: sepsis due to unspecified organism Sepsis acute organ dysfunction status: unspecified Qualified Code(s): A41.9 - Sepsis, unspecified organism Additional A&P Information Full code Lovenox will suffice for DVT prophylaxis Attestations Medical Necessity Statement*: Patient requires hospitalization for acute hypoxic respiratory failure sec to COVID-19 Coding Level of Care Code Acute Last Repairer Helper for [facility] Diagnoses Respiratory failure with hypoxia J96.01 Chronicity: acute Pneumonia due to COVID-19 virus U07.1; J12.82 Hypernatremia E87.0 Pulmonary embolism I26.93 Pulmonary embolism type: single subsegmental (without acute cor pulmonale) Thrombocytopenia D69.6 Dehydration E86.0 Transaminitis R74.01 Developmental delay, profound R62.50 Sepsis A41.9 Sepsis type: sepsis due to unspecified organism Sepsis acute organ dysfunction status: unspecified
--- NOTE | 2021-05-25 16:11 | PC.NUTR ---
Nutrition reassessment: Pt has consumed 2 meals in past 4-5 days. Recommend advance diet per previous VIBRATOR EQUIPMENT TESTER recommendations when medically appropriate to do so. If remains unable to consume oral diet within 3-5 more days (7-10 days total), and consistent with plan of care, recommend enteral nutrition as below: Pulmocare 1.5, begin at 10 ml/hr, increase by 10 ml/hr q 8 hours to goal rate of 45 ml/hr, to provide 1620 kcal, 68 g protein, 848 ml H2O. H2O flushes to be added per physician given other fluid provision in place. Noted pt is currently receiving propofol and D5, providing additional 386 kcal daily. Would recommend to decrease D5 as TF rate increases. See RD assessment for further details.
[2021-05-25] MEDS: propofol 1,000 MG/100 ML INJ 10.57 MG IV (17:25)
[2021-05-25] MEDS: remdesivir 100 MG in sodium chloride 0.9% (100 ml) 100 ML IV (19:56)
--- NOTE | 2021-05-25 20:59 | PC.NURSE ---
ASSUMING CARE Patient resting in bed on mechanical ventilation. FiO2 55%, PEEP 6, TV 450, Rate 15, 26 cm at the lip and size 8.0 tube. Propofol running at 25 mcg/kg/min, fentanyl at 100 mcg/hour. Lamb catheter in place and draining. Right IJ CVL in place and draining.
[2021-05-25 21:13] LABS: Glucose Point of Care 107 mg/dL (70-110)
[2021-05-26] VITALS (62 sets, daily range): BP systolic 90–152; BP diastolic 49–90; PULSE 46–121; RESP 15–24; TEMP 36.6–37.1; O2SAT 86–97
[2021-05-26] MEDS: enoxaparin 80 mg/0.8 mL Syringe SUBCUT ×2 (02:05→14:00)
[2021-05-26] MEDS: piperacillin-tazobactam 3.375 GM in sodium chloride 0.9% (plus) 50 ML IV ×3 (02:33→18:17)
[2021-05-26] MEDS: ipratropium-albuterol 3 mL Neb INHALATION ×4 (02:33→20:27)
[2021-05-26] MEDS: propofol 1,000 MG/100 ML INJ 12.69 MG IV ×3 (02:33→21:18)
[2021-05-26] MEDS: famotidine 20 mg/2 mL INJ IVP ×2 (03:51→16:08)
[2021-05-26 04:46] LABS: ABG PCO2 40.6 mmHg (35-45); ABG PH Result 7.43 (7.35-7.45); Arterial Blood Gas Hematocrit 37.2 % (42-52); Blood Gas Allen Test Pos; Blood Gas Sample Site Radial, left; Blood Gas Sample Type Arterial; Blood Gas Tidal Volume 0.45; HCO3 ABG 26.6 mmol/L (22-26); Oxygen Device VENT; PO2 ABG 60.8 mmHg (80.0-100.0)
[2021-05-26 05:31] LABS: Hematocrit 34.7 % (42.0-52.0); Hemoglobin 10.8 g/dL (11.7-16.6); Lymphocytes # 0.4 10^3/uL (0.8-4.8); Lymphocytes % 7.8 %; Mean Corpuscular HGB Conc 31.1 g/dL (30.0-36.0); Mean Corpuscular Hemoglobin 29.8 pg (28.0-34.0); Mean Corpuscular Volume 95.6 fL (80-94); Mean Platelet Volume 12.1 fL (7.4-10.4); Monocytes # 0.3 10^3/uL (0.2-0.9); Monocytes % 5.4 %; Neutrophils # 4.65 10^3/uL (1.8-7.7); Neutrophils % 86.1 %; Nucleated Red Blood Cells % 0 %; Platelet Count 160 10^3/cmm (130-400); Red Blood Count 3.63 10^6/uL (4.1-5.3); Red Cell Distribution Width 14.6 % (12.1-15.1); White Blood Count 5.4 10^3/uL (4.0-10.0)
[2021-05-26 05:46] LABS: INR 1.27 (0.8-1.2)
[2021-05-26 05:48] LABS: Alanine Aminotransferase 50 U/L (0-41); Albumin Level 2.1 g/dL (3.5-5.2); Alkaline Phosphatase 55 IU/L (40-130); Anion Gap 8.2 (5-19); Aspartate Amino Transferase 42 U/L (0-40); Blood Urea Nitrogen 15 mg/dL (8-23); C Reactive Protein 19.8 mg/L (0.0-4.9); Carbon Dioxide 27 mmol/L (22-29); Chloride 114 mmol/L (98-107); Globulin 2.4 g/dL (1.3-4.6); Glomerular Filtration Rate 167.9 mL/min (90-130); Glucose 133 mg/dL (65-115); Osmolality Calculated 305 mOsm/kg (285-295); Phosphorus 2.4 mg/dL (2.5-4.5); Potassium 3.2 mmol/L (3.5-5.1); Sodium 146 mmol/L (136-145); Total Bilirubin 0.3 mg/dL (0.15-1.2); Total Protein 4.5 g/dL (6.6-8.7)
[2021-05-26 05:49] LABS: Lactate (Lactic Acid level) 1.1 mmol/L (0.5-2.2)
[2021-05-26 05:50] LABS: Creatinine Clr Calc Pharmacy 143.4638; Fibrinogen 385 mg/dL (174-498)
[2021-05-26 05:53] LABS: D Dimer <= 0.27 ug/mIFEU (0-0.59)
--- NOTE | 2021-05-26 06:00 | ECG_ITS ---
[facility] Test Date: 2021-05-26 Pat Name: Jorge Luis Lucas Department: Room: [facility] Gender: Male Bankruptcy Law Specialist: : [id number] Requested By: Doni Dao Order Number: [id number] Ash MD: Laurence Bearden M.D. Measurements Intervals [place] Rate: 73 P: 58 [place]: 137 QRS: 46 QRSD: 101 T: 39 QT: 394 QTc: 435 Interpretive Statements SINUS RHYTHM Compared to ECG 05/25/2021 03:39:12 No significant changes Electronically Signed On 05-27-2021 7:21:49 CDT by Laurence Bearden M.D. [email or web address]
[2021-05-26 06:10] LABS: NT Pro B Type Natriuretic Pept 110 pg/mL (0-125)
--- NOTE | 2021-05-26 06:10 | PC.NURSE ---
SHIFT SUMMARY Patients ventilator settings have remained the same. 300 mL tea colored urine output. Fentanyl drip running at 100 mcg/hour and propofol running at 30 mcg/kg/min. No issues with blood pressure throughout the night. Afebrile and no issues with hypothermia. Dressing to left buttocks changed. Patient bathed and linens changed.
[2021-05-26 06:21] LABS: Creatine Phosphokinase 66 U/L (39-308); Ferritin 414 ng/mL (30-400)
--- NOTE | 2021-05-26 07:38 | PC.NURSE ---
Report received. Assessment completed. Pt resting in bed. No s/s of pain or SOB. Bradycardic. Propofol infusing at 35mcg/kg/min, fentanyl infusing at 100 mcg/h per order. ETT in place, settings 450/15/ peep 6/ fio2 55%, 26cm at lip. Lamb cath in place draining freely to BSD. VSS. Will monitor.
[2021-05-26] MEDS: potassium chloride premix 100 ML 25 MEQ IV (08:00)
[2021-05-26 08:06] LABS: Glucose Point of Care 130 mg/dL (70-110)
--- NOTE | 2021-05-26 09:35 | PC.CHAP ---
Pastoral Care Encounter/Spiritual Assessment Type of Contact [] Declined whiteprinting machine operator visit [] Patient/Family/Request visit [] Outpatient visit [] Follow-up visit [] Physician referral [] Code/Alert [x] Routine visit [] Staff referral [] Actively dying [] Patient sleeping [] Family support [] [] Out of room [] Palliative care [] [x] Receiving care in room [] Pre-surgical visit [] Trauma [] Long length of stay x] ICU visit [x] Other:isolated,, ventilator Relational/Emotional Strength [] Patient feels connected with others/family/visitors/staff [] Distress [] Loneliness/isolation [] Abandonment Spirituality of Patient [] Person of Emma [] Attends Congregation of their Emma [] Believes in Prayer [] Reads Bible or Shinto materials [] There are Spiritual issues to be addressed Ingot Stripper Interventions [x] Prayer [] Active listening [] Non-anxious presence [] Spiritual/emotional support [] Crisis/trauma care [] Spiritual counseling [] Bereavement support [] Provided bereavement packet [] Provided Bible/devotional materials [] Provided toy/stuffed animal, coloring book to patient or family member [] Provided Communion [] Anointing/[place] [] Salvation [x] Completed spiritual assessment [] Other: Impact on Illness or Injury [] Angry [] Fearful [] Anxious [] Often cries [] Exhaustion [] Unable to work [] Unable to attend christian [] Unable to walk/stand [] Unable to read [] Unable to drive [] Unable to eat/drink [] Unable to sleep [] Unable to be with family [] Patient intubated [] Other: Summary Time spent with patient
--- NOTE | 2021-05-26 09:46 | PC.NURSE ---
Pt tachycardic and thrashing head and biting down on ETT at times. Propofol titrated up to 30mcg at this time.
--- NOTE | 2021-05-26 10:21 | PC.NURSE ---
Pt biting ETT and thrashing head, O2 sat decreasing. Propofol increased to 35mcg/kg/min. Will monitor.
--- NOTE | 2021-05-26 10:50 | PC.NURSE ---
Pt, when weaned down on propofol, able to move gaze down to this nurse. Does not follow any commands. Will monitor.
[2021-05-26 11:02] LABS: Vancomycin Trough 21.3 ug/mL (10-15)
[2021-05-26 11:19] LABS: Glucose Point of Care 104 mg/dL (70-110)
[2021-05-26] MEDS: dexamethasone 4 mg/mL INJ 6 MG IVP (14:00)
[2021-05-26] MEDS: propofol 1,000 MG/100 ML INJ 14.8 MG IV (14:53)
--- NOTE | 2021-05-26 15:31 | P.PN_ITS ---
Subjective Subjective: Interval history: Patient was seen this morning, overnight, he remains afebrile, normotensive, off pressors, did have episodes of sinus bradycardia overnight, his propofol is being weaned down, currently normal sinus rhythm heart rates in the 50s, he is active 55% FiO2, Medications: Reviewed: Yes Vitals/I&O/Wt Last Vital Signs Temp 98.7 F 05/26/21 12:00 Pulse 76 05/26/21 14:54 Resp 16 05/26/21 15:28 BP 92/49 05/26/21 12:00 Pulse Ox 92 05/26/21 15:28 05/26/21 05/26/21 05/26/21 06:59 14:59 22:59 Intake Total 606.539 / 9322.193 0333.526 / 1545.526 Output Total 300 / 950 Balance 306.539 / 493.089 7846.526 / 1545.526 Weight last 48 hrs Weight 71.985 kg Weight 70.488 kg Physical Exam Narrative: EXAM NARRATIVE: Intubated, sedated, on sedation Const: COMMON NORMALS: no acute distress Eye: COMMON NORMALS: Equal, round and reactive pupils present PUPIL: Yes Equal, round and reactive pupils present OTHER: Pupils upwards going leanna aterally Resp: COMMON NORMALS: normal respiratory effort, No retractions and No use of accessory muscles Cardio: COMMON NORMALS: regular rate, regular rhythm, S1 normal heart sound p resent and S2 normal heart sound present RATE: regular rate RHYTHM: regular rhythm HEART SOUNDS: S1 normal heart sound present and S2 normal heart sound present GI: COMMON NORMALS: Normal to inspection, nondistended, normoactive bowel sounds present, Soft to palpation and non-tender PALPATION: Yes Soft to palpation Extremity: COMMON NORMALS: no pedal edema OTHER: Flexion contracture of bilateral upper extremities Extensor posturing bilateral lower extremities No pitting edema Urinary Catheter Management^: Lamb: Cath Placed During This Visit: yes Reason for Continuing Indwelling Catheter: Accurate Measurement of Urinary O utput in Critically Ill Patients Urinary Catheter Date of Insertion: 05/23/21 Urinary Catheter Time of Insertion: 14:48 Data : 05/26/21 05:00 05/26/21 05:00 Micro: Microbiology 05/21/21 09:30 Blood Culture - Final Blood NO GROWTH AFTER 5 DAYS 05/21/21 08:30 Blood Culture - Final Blood NO GROWTH AFTER 5 DAYS 05/23/21 16:12 Gram Stain - Final Sputum - Endotracheal Tube Aspirate Sputum Culture - Final A&P Assessment and plan (1) Respiratory failure with hypoxia: Acute Hypoxic respiratory failure secondary to Covid pneumonia, Secondary bacterial pneumonia, pulmonary embolism, sepsis According to patient's caregiver at [facility], at baseline he is a quadriplegic, history of low palsy, developmental delay, he needs assistance for feeding, he can smile at times, can track objects, does not follow commands Patient's public stock plan administrator is Starr Hobbs [phone] or Buster CT angio chest:PE protcl: Very small, nonocclusive age-indeterminate emboli in the proximal upper lobe pulmonary arteries and distal LEFT lower lobe pulmonary artery. Bilateral scattered pulmonary opacifications and probable reactive lymphadenopathy. Pneumonitis and pneumonia should be considered. Patient was recently discharged from hospital after receiving 4 days of remdesivir, as well as IV dexamethasone. Post readmission, he was placed on heated high flow oxygen through nasal cannula , due to worsening ABG as well as respiratory status, and his inability to tolerate BiPAP, and given high risk for aspiration.Patient was intubated and placed on mechanical ventilation. plan: Continue intubation, mechanical ventilation, minimize PEEP, minimize FiO2 Precedex, wean propofol for to minimal effective for appropriate sedation Sinus bradycardia, wean propofol Ativan for as needed anxiety Continue Keppra for history of seizures Will initiate extended course of remdesivir, given his worsening respiratory status Decadron 6 mg IV push daily He has also received 1 dose of tocilizumab 05/23/2021, possible second dose based on clinical progress Vitamin C, zinc, vitamin D Continue broad-spectrum antibiotic therapy vancomycin, Zosyn Maintain MAP in the 65, currently off Levophed Continue to monitor inflammatory markers (ESR CRP D-dimer ferritin ) Blood Culture : So far negative MRSA PCR negative Sputum culture pending Continue to monitor ABG On full dose Lovenox Monitor intake output: Avoid volume overload (current intake output which is charted is not correct as the patient is incontinent and Lamb was placed later ) Minimal pitting edema Hyponatremia, serum sodium 146, on D5 water at 40 cc, will reattempt NG tube placement as previous attempts have been unsuccessful, long-term he might require PEG tube placement based on his extubation, and progress after extubation Given fixed upward gaze, head CT was ordered, no evidence of intracranial hemorrhage or mass-effect, 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 Status: Acute (4) Pulmonary embolism: Lovenox every 12 hours. I do not believe he is able to take his Eliquis p.o. currently. Status: Acute (5) Thrombocytopenia: Continue to monitor closely Status: Acute (6) Dehydration: Hydration overnight Status: Acute (7) Transaminitis: May be secondary to COVID-19. Recheck in the morning Status: Acute (8) Developmental delay, profound: Patient with baseline profound developmental delay, nonverbal Status: Acute (9) Sepsis: Status: Acute Qualifiers: Sepsis type: sepsis due to unspecified organism Sepsis acute organ dysfunction status: unspecified Qualified Code(s): A41.9 - Sepsis, unspecified organism Additional A&P Information Full code Lovenox will suffice for DVT prophylaxis Attestations Medical Necessity Statement*: Patient requires hospitalization for acute respiratory failure secondary COVID-19 Coding Level of Care Code Acute Psychiatric Arnp for [facility] Diagnoses Respiratory failure with hypoxia J96.01 Chronicity: acute Pneumonia due to COVID-19 virus U07.1; J12.82 Hypernatremia E87.0 Pulmonary embolism I26.99 Thrombocytopenia D69.6 Dehydration E86.0 Transaminitis R74.01 Developmental delay, profound R62.50 Sepsis A41.9 Sepsis type: sepsis due to unspecified organism Sepsis acute organ dysfunction status: unspecified
[2021-05-26] MEDS: vancomycin 1,250 MG/250 ML PIGGYBACK 200 MG IV (16:08)
[2021-05-26 17:27] LABS: Glucose Point of Care 112 mg/dL (70-110)
--- NOTE | 2021-05-26 17:47 | PC.NURSE ---
Pt O2 demand down considerably today. 64% fio2. Pt s s/s of anxiety. Up to chair almost all day. Tolerated well. Laxative given. BSC moved into room. Will monitor.
--- NOTE | 2021-05-26 17:49 | PC.NURSE ---
Attempted to wean propofol per orders. Pt became highly agitated and sedation had to be increased. VSS at this time.
--- NOTE | 2021-05-26 18:01 | P.PN_ITS ---
Subjective Medications: Reviewed: Yes Vitals/I&O/Wt Last Vital Signs Temp 98.7 F 05/26/21 16:00 Pulse 73 05/26/21 16:00 Resp 15 05/26/21 16:59 BP 90/50 05/26/21 16:00 Pulse Ox 95 05/26/21 16:59 05/26/21 05/26/21 05/26/21 06:59 14:59 22:59 Intake Total 606.539 / 3934.629 5177.526 / 1545.526 250 / 1795.526 Output Total 300 / 950 300 / 300 Balance 306.539 / 907.724 3831.526 / 1545.526 -50 / 1495.526 Weight last 48 hrs Weight 158 lb 11.2 oz Weight 155 lb 6.4 oz Physical Exam Narrative: EXAM NARRATIVE: General: Lying in bed, sedated and intubated. HEENT:NCAT, PERRLA, EOMI Neck: Supple Lungs: normal breathsounds bilaterally Heart: s1/s2, RRR Abd: soft, NT, ND, BS + Normoactive Extremities: No edema, flexion contracture of bilateral upper extremities, extensor posturing bilateral lower extremities, 1+ pitting pedal edema FEDERAL MEDIATOR: sedated and limited FEDERAL MEDIATOR exam possible. SKIN: no rash Urinary Catheter Management^: Lamb: Cath Placed During This Visit: yes Reason for Continuing Indwelling Catheter: Accurate Measurement of Urinary Output in Critically Ill Patients Urinary Catheter Date of Insertion: 05/23/21 Urinary Catheter Time of Insertion: 14:48 Data : 05/26/21 05:00 05/26/21 05:00 Other Labs: Laboratory Results WBC 5.4 10^3/uL (4.0-10.0) 05/26/21 05:00 RBC 3.63 10^6/uL (4.1-5.3) L 05/26/21 05:00 Hgb 10.8 g/dL (11.7-16.6) L 05/26/21 05:00 Hct 34.7 % (42.0-52.0) L 05/26/21 05:00 MCV 95.6 fL (80-94) H 05/26/21 05:00 MCH 29.8 pg (28.0-34.0) 05/26/21 05:00 MCHC 31.1 g/dL (30.0-36.0) 05/26/21 05:00 RDW 14.6 % (12.1-15.1) 05/26/21 05:00 Plt Count 160 10^3/cmm (130-400) 05/26/21 05:00 MPV 12.1 fL (7.4-10.4) H 05/26/21 05:00 Neut % (Auto) 86.1 % 05/26/21 05:00 Lymph % (Auto) 7.8 % 05/26/21 05:00 Prentiss % (Auto) 5.4 % 05/26/21 05:00 Eos % (Auto) 0.0 % 05/26/21 05:00 Baso % (Auto) 0.0 % 05/26/21 05:00 Neut # (Auto) 4.65 10^3/uL (1.8-7.7) 05/26/21 05:00 Lymph # (Auto) 0.4 10^3/uL (0.8-4.8) L 05/26/21 05:00 Prentiss # (Auto) 0.3 10^3/uL (0.2-0.9) 05/26/21 05:00 Eos # (Auto) 0.0 10^3/uL (0.0-0.8) 05/26/21 05:00 Baso # (Auto) 0.0 10^3/uL (0.0-0.1) 05/26/21 05:00 Nucleated RBC % (auto) 0 % 05/26/21 05:00 Nucleated RBCs # 0.0 /100WBC 05/26/21 05:00 ESR 25 mm/hr (0-10) H 05/25/21 02:39 PT 16.30 SECONDS (12.1-14.9) H 05/26/21 05:00 INR 1.27 (0.8-1.2) H 05/26/21 05:00 Fibrinogen 385 mg/dL (174-498) 05/26/21 05:00 D-Dimer <= 0.27 ug/mIFEU (0-0.59) 05/26/21 05:00 Specimen Type Arterial 05/26/21 04:17 Sample Site Radial, left 05/26/21 04:17 ABG pH 7.43 (7.35-7.45) 05/26/21 04:17 ABG pCO2 40.6 mmHg (35-45) 05/26/21 04:17 ABG pO2 60.8 mmHg (80.0-100.0) L 05/26/21 04:17 ABG HCO3 26.6 mmol/L (22-26) H 05/26/21 04:17 ABG O2 Saturation 99.7 05/23/21 17:17 ABG Base Excess 2.0 mmol/L (-2.0-2.0) 05/26/21 04:17 Palmer Test Pos 05/26/21 04:17 A-a O2 Gradient 55.8 mmHg (5-10) H 05/23/21 17:17 Hematocrit 37.2 % (42-52) L 05/26/21 04:17 Hgb O2 Saturation 98.5 % (95-100) 05/23/21 17:17 Carboxyhemoglobin 0.2 %THgb (0.4-20.1) L 05/23/21 17:17 Methemoglobin 1.0 % (0.4-1.5) 05/23/21 17:17 Total Hemoglobin 14.1 g/dL (14-18) 05/23/21 17:17 Sodium 152.0 mmol/L (131-143) H 05/23/21 17:17 Potassium 3.0 mmol/L (3.5-5.0) L 05/23/21 17:17 Glucose 203.0 mg/dL (70-115) H 05/23/21 17:17 Ionized Calcium 1.1 mmol/L (1.1-1.4) 05/23/21 17:17 O2 Delivery Device Vent 05/26/21 04:17 O2 Liters/Min 45.0 % 05/23/21 10:55 Mechanical Rate 14.0 05/23/21 17:17 FiO2 55.0 % 05/26/21 04:17 Tidal Volume 0.45 05/26/21 04:17 PEEP 6.0 cmH20 05/26/21 04:17 Packing Room Inspector ID Posjo 05/26/21 04:17 Sodium 146 mmol/L (136-145) H 05/26/21 05:00 Potassium 3.2 mmol/L (3.5-5.1) L 05/26/21 05:00 Chloride 114 mmol/L (98-107) H 05/26/21 05:00 Carbon Dioxide 27 mmol/L (22-29) 05/26/21 05:00 Anion Gap 8.2 (5-19) 05/26/21 05:00 BUN 15 mg/dL (8-23) 05/26/21 05:00 Creatinine 0.5 mg/dL (0.7-1.2) L 05/26/21 05:00 GFR Calculation 167.9 mL/min (90-130) H 05/26/21 05:00 Glucose 133 mg/dL (65-115) H 05/26/21 05:00 POC Glucose 112 mg/dL (70-110) H 05/26/21 17:22 Calculated Osmolality 305 mOsm/kg (285-295) H 05/26/21 05:00 Lactic Acid 3.1 mmol/L (0.5-2.2) H 05/21/21 08:30 Lactic Acid (Sepsis) 1.6 mmol/L (0.5-2.2) 05/21/21 11:49 Lactate 1.1 mmol/L (0.5-2.2) 05/26/21 05:00 Calcium 7.0 mg/dL (8.5-10.5) L 05/26/21 05:00 Phosphorus 2.4 mg/dL (2.5-4.5) L 05/26/21 05:00 Magnesium 2.0 mg/dL (1.7-2.3) 05/26/21 05:00 Ferritin 414 ng/mL (30-400) H 05/26/21 05:00 Total Bilirubin 0.3 mg/dL (0.15-1.2) 05/26/21 05:00 AST 42 U/L (0-40) H 05/26/21 05:00 ALT 50 U/L (0-41) H 05/26/21 05:00 Alkaline Phosphatase 55 IU/L (40-130) 05/26/21 05:00 Ammonia 68 umol/L (16-60) H 05/25/21 02:39 Creatine Kinase 66 U/L (39-308) 05/26/21 05:00 C-Reactive Protein 19.8 mg/L (0.0-4.9) H 05/26/21 05:00 NT-Pro-B Natriuret Pep 110 pg/mL (0-125) 05/26/21 05:00 Total Protein 4.5 g/dL (6.6-8.7) L 05/26/21 05:00 Albumin 2.1 g/dL (3.5-5.2) L 05/26/21 05:00 Globulin 2.4 g/dL (1.3-4.6) 05/26/21 05:00 Lipase 31 U/L (13-60) 05/21/21 08:30 Procalcitonin 0.10 ng/mL (0-0.5) 05/26/21 05:00 Urine Color Cancelled 05/22/21 12:45 Urine Color Yellow (Yellow) 05/22/21 12:45 Urine Appearance Cancelled 05/22/21 12:45 Urine Appearance Clear (CLEAR) 05/22/21 12:45 Urine pH 6 (5-7) 05/22/21 12:45 Urine pH Cancelled 05/22/21 12:45 Ur Specific [place]ver 1.015 (1.005-1.030) 05/22/21 12:45 Ur Specific [place] Cancelled 05/22/21 12:45 Urine Protein Cancelled 05/22/21 12:45 Urine Protein Trace (Negative) 05/22/21 12:45 Urine Glucose (UA) Cancelled 05/22/21 12:45 Urine Glucose (UA) Norm (Normal) 05/22/21 12:45 Urine Ketones 2+ (Negative) H 05/22/21 12:45 Urine Ketones Cancelled 05/22/21 12:45 Urine Blood 2+ (Negative) H 05/22/21 12:45 Urine Blood Cancelled 05/22/21 12:45 Urine Nitrate Cancelled 05/22/21 12:45 Urine Nitrate Negative (Negative) 05/22/21 12:45 Urine Bilirubin Cancelled 05/22/21 12:45 Urine Bilirubin Neg (Negative) 05/22/21 12:45 Prot Sulfosalicylic Acd Cancelled 05/22/21 12:45 Urine Urobilinogen Cancelled 05/22/21 12:45 Urine Urobilinogen Norm mg/dL (Negative) 05/22/21 12:45 Ur Leukocyte Esterase Cancelled 05/22/21 12:45 Ur Leukocyte Esterase Negative (Negative) 05/22/21 12:45 Urine RBC 0-4 /hpf (0-2) H 05/22/21 12:45 Urine WBC 0-4 /hpf (0-5) H 05/22/21 12:45 Ur Squamous Epith Cells None /hpf (0-5) 05/22/21 12:45 Amorphous Sediment Not Reportable 05/22/21 12:45 Urine Bacteria Trace /hpf (NONE) 05/22/21 12:45 Vancomycin Trough 21.3 ug/mL (10-15) H 05/26/21 10:05 Impressions Abdomen Ultrasound 05/24/21 09:12 IMPRESSION: 1. Hepatomegaly with diffuse fatty infiltration. 2. Single gallstone measuring 16 mm.Common bile duct at the upper limits of normal but within normal limits. No gallbladder wall thickening or pericholecystic fluid. 3. No hydronephrosis in either kidney. Chest X-Ray 05/25/21 07:00 IMPRESSION: No pneumothorax is seen. Head CT 05/25/21 09:04 IMPRESSION: 1. No evidence of intracranial hemorrhage or mass effect. 2. Mild small vessel changes. Moderate parenchymal volume loss. 3. 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 4. Paranasal sinus fluid and opacification as described above. Micro: Microbiology 05/21/21 09:30 Blood Culture - Final Blood NO GROWTH AFTER 5 DAYS 05/21/21 08:30 Blood Culture - Final Blood NO GROWTH AFTER 5 DAYS 05/23/21 16:12 Gram Stain - Final Sputum - Endotracheal Tube Aspirate Sputum Culture - Final A&P Assessment and plan (1) Sepsis: Status: Acute Qualifiers: Sepsis type: sepsis due to unspecified organism Sepsis acute organ dysfunction status: unspecified Qualified Code(s): A41.9 - Sepsis, unspecified organism (2) Respiratory failure with hypoxia: Status: Acute Qualifiers: Chronicity: acute Qualified Code(s): J96.01 - Acute respiratory failure with hypoxia (3) Pulmonary embolism: Status: Acute (4) Pneumonia due to COVID-19 virus: Status: Acute (5) ARDS (adult respiratory distress syndrome): Status: Acute (6) Developmental delay, profound: Status: Acute (7) Transaminitis: Status: Acute (8) Hypokalemia: Status: Acute #Acute hypoxic respiratory failure secondary ARDS due to to COVID-19 pneumonia #CT evidence of nonocclusive PE #Altered mental status secondary to cerebral palsy and sepsis #Elevated transaminases-likely secondary to Covid #Hypokalemia 3.2 today -CTA 05/17/2021:Very small, nonocclusive age-indeterminate emboli in the proximal upper lobe pulmonary arteries and distal LEFT lower lobe pulmonary artery. Bilateral scattered pulmonary opacifications and probable reactive lymphadenopathy. Pneumonitis and pneumonia should be considered. -COVID-19 PCR + 05/17/2021, -Influenza A and B antigen, MRSA nares, sputum cultures, blood cultures negative -Afebrile last 24 hours, normal WBC count, lactic acid, procalcitonin -Elevated ESR, ferritin, CRP, and normal O-[id number]-zswkwdg every 48 hours -Continue Zosyn and Vancomycin -Received remdesivir 4 doses during prior admission and currently started on extended course for 5 more days -Continue dexamethasone 6 mg daily - Continue Lovenox 80 every 12-therapeutic dose for confirmed PE on CTA 05/17/2021 -Sedated and mechanically ventilated -ET tube exchanged over a bougie on 05/25/2021 -Currently on fentanyl 100 MCG/hour and tapered off Versed 2 mg/hour and started on propofol 30 MCG/ - but patient is bradycardic - Will titrate down propofol and start on versed if needed. -On Keppra 1 g twice daily -Head CT 05/25/2021: No acute changes. 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 -echocardiogram of the heart shows EF of 62%, no regional wall motion a bnormalities -ABG 7.4 3/40/60/26/94% saturation on CMV 450/15/6/55 % FiO2 -Continue DuoNeb nebulizations every 6 hours scheduled -Continue to titrate down FiO2 and once FiO2 is about 35 to 40%-we will attempt to taper off sedation and breathing trial to evaluate for possible extubation -off pressor -Continue hemodynamic monitoring -Net +7 L since admission; -Normal renal function -Sodium 146, potassium 3.2, bicarb 27, anion gap 8, CK 66 -Monitor renal functions, electrolytes, input and output closely -Elevated LFTs-abdominal ultrasound today showed single gallstone measuring 16 mm, no GB wall thickening or pericholecystic fluid -Sugars not well controlled; started on scale coverage -Currently NPO; difficult to pass NG tube - might need PEG tube skilled nursing due to underlying severe dementia - famotidine 20 mg twice daily for GI prophylaxis -Already on anticoagulation for PE-covered for DVT prophylaxis Recommendations conveyed to hospitalist, RN, RT covering the patient Attestations Medical Necessity Statement*: Acute hypoxic respiratory failure secondary to ARDS due to COVID-19 pneumonia and nonocclusive PE, difficulty weaning given his baseline dementia and underlying cerebral palsy, hypernatremia-needs close monitoring in ICU Time Spent in Patient Care: (>than 50% of time spent in counselling and/or direct pt care on unit) . Critical Care Time: The high probability of a clinically significant, sudden o r life threatening deterioration of the patient's [respiratory, neurologic, renal, infectious] system(s) required my full and direct attention, intervention and personal management. The critical care time is as shown. 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
--- NOTE | 2021-05-26 18:14 | PC.NURSE ---
Propofol decreased to 30cmg/kg/min d/t decreased HR. No other issues noted.
[2021-05-26 18:57] LABS: Anion Gap 9.8 (5-19); Blood Urea Nitrogen 14 mg/dL (8-23); Calcium 7.3 mg/dL (8.5-10.5); Carbon Dioxide 26 mmol/L (22-29); Chloride 114 mmol/L (98-107); Glomerular Filtration Rate 136.1 mL/min (90-130); Glucose 104 mg/dL (65-115); Osmolality Calculated 303 mOsm/kg (285-295); Potassium 3.8 mmol/L (3.5-5.1); Sodium 146 mmol/L (136-145)
[2021-05-26] MEDS: remdesivir 100 MG in sodium chloride 0.9% (100 ml) 100 ML IV (19:48)
[2021-05-26 20:55] LABS: Glucose Point of Care 124 mg/dL (70-110)
[2021-05-27] VITALS (73 sets, daily range): BP systolic 91–180; BP diastolic 48–116; PULSE 50–106; RESP 15–20; TEMP 36.3–36.8; O2SAT 87–100
[2021-05-27] MEDS: enoxaparin 80 mg/0.8 mL Syringe SUBCUT (02:08)
[2021-05-27] MEDS: piperacillin-tazobactam 3.375 GM in sodium chloride 0.9% (plus) 50 ML IV ×3 (02:08→18:15)
[2021-05-27] MEDS: ipratropium-albuterol 3 mL Neb INHALATION ×4 (03:07→20:07)
[2021-05-27] MEDS: propofol 1,000 MG/100 ML INJ 14.8 MG IV ×3 (04:14→22:19)
[2021-05-27 05:07] LABS: Basophils % 0.2 %; Eosinophils % 0.2 %; Hematocrit 36.3 % (42.0-52.0); Hemoglobin 11.1 g/dL (11.7-16.6); Lymphocytes # 0.6 10^3/uL (0.8-4.8); Lymphocytes % 9.5 %; Mean Corpuscular HGB Conc 30.6 g/dL (30.0-36.0); Mean Corpuscular Hemoglobin 29.9 pg (28.0-34.0); Mean Corpuscular Volume 97.8 fL (80-94); Mean Platelet Volume 11.7 fL (7.4-10.4); Monocytes # 0.3 10^3/uL (0.2-0.9); Monocytes % 4.1 %; Neutrophils # 5.54 10^3/uL (1.8-7.7); Neutrophils % 84.8 %; Nucleated Red Blood Cells % 0 %; Platelet Count 161 10^3/cmm (130-400); Red Blood Count 3.71 10^6/uL (4.1-5.3); Red Cell Distribution Width 14.7 % (12.1-15.1); White Blood Count 6.5 10^3/uL (4.0-10.0)
[2021-05-27] MEDS: famotidine 20 mg/2 mL INJ IVP ×2 (05:17→15:07)
[2021-05-27 05:23] LABS: INR 1.33 (0.8-1.2)
[2021-05-27 05:24] LABS: Fibrinogen 320 mg/dL (174-498); Lactate (Lactic Acid level) 1.1 mmol/L (0.5-2.2)
[2021-05-27 05:25] LABS: Alanine Aminotransferase 57 U/L (0-41); Albumin Level 2.3 g/dL (3.5-5.2); Alkaline Phosphatase 57 IU/L (40-130); Anion Gap 12.5 (5-19); Aspartate Amino Transferase 43 U/L (0-40); Blood Urea Nitrogen 13 mg/dL (8-23); C Reactive Protein 10.6 mg/L (0.0-4.9); Calcium 7.3 mg/dL (8.5-10.5); Carbon Dioxide 25 mmol/L (22-29); Chloride 113 mmol/L (98-107); Globulin 2.3 g/dL (1.3-4.6); Glomerular Filtration Rate 135.6 mL/min (90-130); Glucose 110 mg/dL (65-115); Osmolality Calculated 305 mOsm/kg (285-295); Phosphorus 2.7 mg/dL (2.5-4.5); Potassium 3.5 mmol/L (3.5-5.1); Sodium 147 mmol/L (136-145); Total Bilirubin 0.4 mg/dL (0.15-1.2); Total Protein 4.6 g/dL (6.6-8.7)
[2021-05-27 05:29] LABS: NT Pro B Type Natriuretic Pept 207 pg/mL (0-125)
[2021-05-27 05:40] LABS: Creatine Phosphokinase 29 U/L (39-308)
[2021-05-27 05:44] LABS: ABG PCO2 39.9 mmHg (35-45); ABG PH Result 7.43 (7.35-7.45); Arterial Blood Gas Hematocrit 39.4 % (42-52); Base Excess ABG 1.9 mmol/L (-2.0-2.0); Blood Gas Allen Test Pos; Blood Gas Operator Identificat JB; Blood Gas Sample Site Radial, left; Blood Gas Sample Type Arterial; Blood Gas Tidal Volume 0.45; HCO3 ABG 26.4 mmol/L (22-26); Oxygen Device VENT; PO2 ABG 58.7 mmHg (80.0-100.0)
--- NOTE | 2021-05-27 06:00 | ECG_ITS ---
[facility] Test Date: 2021-05-27 Pat Name: Jorge Luis Lucas Department: Room: [facility] Gender: Male [employer] Crewmember: : 1955 Requested By: Doni Dao Order Number: [id number] Ash MD: Anuel Freitas M.D. Measurements Intervals [place] Rate: 71 P: 66 AK: 139 QRS: 64 QRSD: 100 T: 68 QT: 404 QTc: 442 Interpretive Statements SINUS RHYTHM Compared to ECG 05/26/2021 04:08:40 No significant changes Electronically Signed On 05-27-2021 20:39:10 CDT by Anuel Freitas M.D. [id number]
--- NOTE | 2021-05-27 07:03 | PC.NURSE ---
Shift Summary; Sedations gtt titrated throughout shift (see MAR flowsheet). With small titrations, patient begins thrashing in bed, biting down on tube, and becomes tachycardic in the 110's. Bed bath, and linen change completed overnight. Afebrile. Vent settings at 450 TV, 15 RR, 50% FiO2, 6 of Peep, and remains 26@ lip. 500 dark yellow u/o. Noticeable increased white discharge to tip of penis was cleansed with yavn care. Report given to jesus palencia RN
--- NOTE | 2021-05-27 09:04 | PC.CHAP ---
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 operator visit [] Patient/Family/Request visit [] Outpatient visit [] Follow-up visit [] Physician referral [] Code/Alert [x] Routine visit [] Staff referral [] Actively dying [] Patient sleeping [] Family support [] [] Out of room [] Palliative care [] [] Receiving care in room [] Pre-surgical visit [] Trauma [] Long length of stay [x] ICU visit [x] Other: ventilator Relational/Emotional Strength [] Patient feels connected with others/family/visitors/staff [] Distress [] Loneliness/isolation [] Abandonment Spirituality of Patient [] Person of Emma [] Attends Quaker of their Emma [] Believes in Prayer [] Reads Bible or Buddhist materials [] There are Spiritual issues to be addressed Test Bore Helper Interventions [x] Prayer [] Active listening [] Non-anxious presence [] Spiritual/emotional support [] Crisis/trauma care [] Spiritual counseling [] Bereavement support [] Provided bereavement packet [] Provided Bible/devotional materials [] Provided toy/stuffed animal, coloring book to patient or family member [] Provided Communion [] Anointing/[place] [] Salvation [x] Completed spiritual assessment [] Other: Impact on Illness or Injury [] Angry [] Fearful [] Anxious [] Often cries [] Exhaustion [] Unable to work [] Unable to attend yarsanism [] Unable to walk/stand [] Unable to read [] Unable to drive [] Unable to eat/drink [] Unable to sleep [] Unable to be with family [] Patient intubated [] Other: Summary Time spent with patient
[2021-05-27] MEDS: dextrose 5%-sod chloride 0.9% 1,000 ML 40 ML IV (10:19)
[2021-05-27 10:30] LABS: Glucose Point of Care 94 mg/dL (70-110)
[2021-05-27] MEDS: FUROsemide 10 mg/mL SDV 4mL 40 MG IVP (10:43)
--- NOTE | 2021-05-27 12:24 | PM.PN ---
Subjective Subjective: Interval history: -Patient seen at bedside today morning -on fentanyl 100 mcg/hr and propofol 35 mg/hr -hemodynamically stable -Currently on CMV on FIO2 50% - Labs and imaging reviewed and pertinent findings incorporated in the assessment and plan Medications: Reviewed: Yes Vitals/I&O/Wt Last Vital Signs Temp 98.3 F 05/27/21 04:00 Pulse 60 05/27/21 12:00 Resp 15 05/27/21 11:20 BP 105/63 05/27/21 12:00 Pulse Ox 96 05/27/21 12:00 05/26/21 05/27/21 05/27/21 22:59 06:59 14:59 Intake Total 490.879 / 2036.405 357.462 / 2393.867 83.127 / 83.127 Output Total 400 / 400 500 / 900 Balance 90.879 / 1636.405 -142.538 / 1493.867 83.127 / 83.127 Weight last 48 hrs Weight 157 lb 1.411 oz Weight 158 lb 11.2 oz Physical Exam Narrative: EXAM NARRATIVE: General: Lying in bed, sedated and intubated. HEENT:NCAT, PERRLA, EOMI Neck: Supple Lungs: normal breathsounds bilaterally Heart: s1/s2, RRR Abd: soft, NT, ND, BS + Normoactive Extremities: No edema, flexion contracture of bilateral upper extremities, extensor posturing bilateral lower extremities, 1+ pitting pedal edema CAPACITOR REPAIRER: sedated and limited CAPACITOR REPAIRER exam possible. SKIN: no rash Urinary Catheter Management^: Lamb: Cath Placed During This Visit: yes Reason for Continuing Indwelling Catheter: Accurate Measurement of Urinary Output in Critically Ill Patients Urinary Catheter Date of Insertion: 05/23/21 Urinary Catheter Time of Insertion: 14:48 Data : 05/27/21 04:24 05/27/21 04:24 Other Labs: Laboratory Results WBC 6.5 10^3/uL (4.0-10.0) 05/27/21 04:24 RBC 3.71 10^6/uL (4.1-5.3) L 05/27/21 04:24 Hgb 11.1 g/dL (11.7-16.6) L 05/27/21 04:24 Hct 36.3 % (42.0-52.0) L 05/27/21 04:24 MCV 97.8 fL (80-94) H 05/27/21 04:24 MCH 29.9 pg (28.0-34.0) 05/27/21 04:24 MCHC 30.6 g/dL (30.0-36.0) 05/27/21 04:24 RDW 14.7 % (12.1-15.1) 05/27/21 04:24 Plt Count 161 10^3/cmm (130-400) 05/27/21 04:24 MPV 11.7 fL (7.4-10.4) H 05/27/21 04:24 Neut % (Auto) 84.8 % 05/27/21 04:24 Lymph % (Auto) 9.5 % 05/27/21 04:24 Haines % (Auto) 4.1 % 05/27/21 04:24 Eos % (Auto) 0.2 % 05/27/21 04:24 Baso % (Auto) 0.2 % 05/27/21 04:24 Neut # (Auto) 5.54 10^3/uL (1.8-7.7) 05/27/21 04:24 Lymph # (Auto) 0.6 10^3/uL (0.8-4.8) L 05/27/21 04:24 Haines # (Auto) 0.3 10^3/uL (0.2-0.9) 05/27/21 04:24 Eos # (Auto) 0.0 10^3/uL (0.0-0.8) 05/27/21 04:24 Baso # (Auto) 0.0 10^3/uL (0.0-0.1) 05/27/21 04:24 Nucleated RBC % (auto) 0 % 05/27/21 04:24 Nucleated RBCs # 0.0 /100WBC 05/27/21 04:24 ESR 25 mm/hr (0-10) H 05/25/21 02:39 PT 16.90 SECONDS (12.1-14.9) H 05/27/21 04:24 INR 1.33 (0.8-1.2) H 05/27/21 04:24 Fibrinogen 320 mg/dL (174-498) 05/27/21 04:24 D-Dimer <= 0.27 ug/mIFEU (0-0.59) 05/26/21 05:00 Specimen Type Arterial 05/27/21 05:30 Sample Site Radial, left 05/27/21 05:30 ABG pH 7.43 (7.35-7.45) 05/27/21 05:30 ABG pCO2 39.9 mmHg (35-45) 05/27/21 05:30 ABG pO2 58.7 mmHg (80.0-100.0) L 05/27/21 05:30 ABG HCO3 26.4 mmol/L (22-26) H 05/27/21 05:30 ABG O2 Saturation 99.7 05/23/21 17:17 ABG Base Excess 1.9 mmol/L (-2.0-2.0) 05/27/21 05:30 Palmer Test Pos 05/27/21 05:30 A-a O2 Gradient 55.8 mmHg (5-10) H 05/23/21 17:17 Hematocrit 39.4 % (42-52) L 05/27/21 05:30 Hgb O2 Saturation 98.5 % (95-100) 05/23/21 17:17 Carboxyhemoglobin 0.2 %THgb (0.4-20.1) L 05/23/21 17:17 Methemoglobin 1.0 % (0.4-1.5) 05/23/21 17:17 Total Hemoglobin 14.1 g/dL (14-18) 05/23/21 17:17 Sodium 152.0 mmol/L (131-143) H 05/23/21 17:17 Potassium 3.0 mmol/L (3.5-5.0) L 05/23/21 17:17 Glucose 203.0 mg/dL (70-115) H 05/23/21 17:17 Ionized Calcium 1.1 mmol/L (1.1-1.4) 05/23/21 17:17 O2 Delivery Device Vent 05/27/21 05:30 O2 Liters/Min 45.0 % 05/23/21 10:55 Mechanical Rate 14.0 05/23/21 17:17 FiO2 50.0 % 05/27/21 05:30 Tidal Volume 0.45 05/27/21 05:30 PEEP 6.0 cmH20 05/27/21 05:30 Territory Outside Sales Manager ID 05/27/21 05:30 Sodium 147 mmol/L (136-145) H 05/27/21 04:24 Potassium 3.5 mmol/L (3.5-5.1) 05/27/21 04:24 Chloride 113 mmol/L (98-107) H 05/27/21 04:24 Carbon Dioxide 25 mmol/L (22-29) 05/27/21 04:24 Anion Gap 12.5 (5-19) 05/27/21 04:24 BUN 13 mg/dL (8-23) 05/27/21 04:24 Creatinine 0.6 mg/dL (0.7-1.2) L 05/27/21 04:24 GFR Calculation 135.6 mL/min (90-130) H 05/27/21 04:24 Glucose 110 mg/dL (65-115) 05/27/21 04:24 POC Glucose 94 mg/dL (70-110) 05/27/21 10:26 Calculated Osmolality 305 mOsm/kg (285-295) H 05/27/21 04:24 Lactic Acid 3.1 mmol/L (0.5-2.2) H 05/21/21 08:30 Lactic Acid (Sepsis) 1.6 mmol/L (0.5-2.2) 05/21/21 11:49 Lactate 1.1 mmol/L (0.5-2.2) 05/27/21 04:24 Calcium 7.3 mg/dL (8.5-10.5) L 05/27/21 04:24 Phosphorus 2.7 mg/dL (2.5-4.5) 05/27/21 04:24 Magnesium 2.0 mg/dL (1.7-2.3) 05/27/21 04:24 Ferritin 414 ng/mL (30-400) H 05/26/21 05:00 Total Bilirubin 0.4 mg/dL (0.15-1.2) 05/27/21 04:24 AST 43 U/L (0-40) H 05/27/21 04:24 ALT 57 U/L (0-41) H 05/27/21 04:24 Alkaline Phosphatase 57 IU/L (40-130) 05/27/21 04:24 Ammonia 68 umol/L (16-60) H 05/25/21 02:39 Creatine Kinase 29 U/L (39-308) L 05/27/21 04:24 C-Reactive Protein 10.6 mg/L (0.0-4.9) H 05/27/21 04:24 NT-Pro-B Natriuret Pep 207 pg/mL (0-125) H 05/27/21 04:24 Total Protein 4.6 g/dL (6.6-8.7) L 05/27/21 04:24 Albumin 2.3 g/dL (3.5-5.2) L 05/27/21 04:24 Globulin 2.3 g/dL (1.3-4.6) 05/27/21 04:24 Lipase 31 U/L (13-60) 05/21/21 08:30 Procalcitonin 0.10 ng/mL (0-0.5) 05/27/21 04:24 Urine Color Cancelled 05/22/21 12:45 Urine Color Yellow (Yellow) 05/22/21 12:45 Urine Appearance Cancelled 05/22/21 12:45 Urine Appearance Clear (CLEAR) 05/22/21 12:45 Urine pH 6 (5-7) 05/22/21 12:45 Urine pH Cancelled 05/22/21 12:45 Ur Specific [place] 1.015 (1.005-1.030) 05/22/21 12:45 Ur Specific [place] Cancelled 05/22/21 12:45 Urine Protein Cancelled 05/22/21 12:45 Urine Protein Trace (Negative) 05/22/21 12:45 Urine Glucose (UA) Cancelled 05/22/21 12:45 Urine Glucose (UA) Norm (Normal) 05/22/21 12:45 Urine Ketones 2+ (Negative) H 05/22/21 12:45 Urine Ketones Cancelled 05/22/21 12:45 Urine Blood 2+ (Negative) H 05/22/21 12:45 Urine Blood Cancelled 05/22/21 12:45 Urine Nitrate Cancelled 05/22/21 12:45 Urine Nitrate Negative (Negative) 05/22/21 12:45 Urine Bilirubin Cancelled 05/22/21 12:45 Urine Bilirubin Neg (Negative) 05/22/21 12:45 Prot Sulfosalicylic Acd Cancelled 05/22/21 12:45 Urine Urobilinogen Cancelled 05/22/21 12:45 Urine Urobilinogen Norm mg/dL (Negative) 05/22/21 12:45 Ur Leukocyte Esterase Cancelled 05/22/21 12:45 Ur Leukocyte Esterase Negative (Negative) 05/22/21 12:45 Urine RBC 0-4 /hpf (0-2) H 05/22/21 12:45 Urine WBC 0-4 /hpf (0-5) H 05/22/21 12:45 Ur Squamous Epith Cells None /hpf (0-5) 05/22/21 12:45 Amorphous Sediment Not Reportable 05/22/21 12:45 Urine Bacteria Trace /hpf (NONE) 05/22/21 12:45 Vancomycin Trough 21.3 ug/mL (10-15) H 05/26/21 10:05 Impressions Abdomen Ultrasound 05/24/21 09:12 IMPRESSION: 1. Hepatomegaly with diffuse fatty infiltration. 2. Single gallstone measuring 16 mm.Common bile duct at the upper limits of normal but within normal limits. No gallbladder wall thickening or pericholecystic fluid. 3. No hydronephrosis in either kidney. Chest X-Ray 05/25/21 07:00 IMPRESSION: No pneumothorax is seen. Head CT 05/25/21 09:04 IMPRESSION: 1. No evidence of intracranial hemorrhage or mass effect. 2. Mild small vessel changes. Moderate parenchymal volume loss. 3. 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 4. Paranasal sinus fluid and opacification as described above. Micro: Microbiology 05/21/21 09:30 Blood Culture - Final Blood NO GROWTH AFTER 5 DAYS 05/21/21 08:30 Blood Culture - Final Blood NO GROWTH AFTER 5 DAYS A&P Assessment and plan (1) Sepsis: Status: Acute Qualifiers: Sepsis type: sepsis due to unspecified organism Sepsis acute organ dysfunction status: unspecified Qualified Code(s): A41.9 - Sepsis, unspecified organism (2) Respiratory failure with hypoxia: Status: Acute Qualifiers: Chronicity: acute Qualified Code(s): J96.01 - Acute respiratory failure with hypoxia (3) Pulmonary embolism: Status: Acute Qualifiers: Pulmonary embolism type: unspecified Chronicity: acute Acute cor pulmonale presence: without acute cor pulmonale Qualified Code(s): I26.99 - Other pulmonary embolism without acute cor pulmonale (4) Pneumonia due to COVID-19 virus: Status: Acute (5) ARDS (adult respiratory distress syndrome): Status: Acute (6) Developmental delay, profound: Status: Acute (7) Transaminitis: Status: Acute (8) Hypokalemia: Status: Acute #Acute hypoxic respiratory failure secondary ARDS due to to COVID-19 pneumonia #CT evidence of nonocclusive PE #Altered mental status secondary to cerebral palsy and sepsis #Elevated transaminases-likely secondary to Covid -CTA 05/17/2021:Very small, nonocclusive age-indeterminate emboli in the proximal upper lobe pulmonary arteries and distal LEFT lower lobe pulmonary artery. Bilateral scattered pulmonary opacifications and probable reactive lymphadenopathy. Pneumonitis and pneumonia should be considered. -COVID-19 PCR + 05/17/2021, -Influenza A and B antigen, MRSA nares, sputum cultures, blood cultures negative -Afebrile last 24 hours, normal WBC count, lactic acid, procalcitonin -improving ESR, ferritin, CRP, and normal H-yamrn-cfvlpit every 48 hours -Continue Zosyn and discontinue Vancomycin -Received remdesivir 4 doses during prior admission and currently on extended course for 5 more days -Continue dexamethasone 6 mg daily - Continue Lovenox 80 every 12-therapeutic dose for confirmed PE on CTA 05/17/2021 -Sedated and mechanically ventilated -ET tube exchanged over a bougie on 05/25/2021 -Currently on fentanyl 100 MCG/hour and on propofol 35 MCG/ - if becomes bradycardic again- titrate down propofol and start on versed if needed. -On Keppra 1 g twice daily -Head CT 05/25/2021: No acute changes. 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 -Echocardiogram of the heart shows EF of 62%, no regional wall motion abnormalities -ABG 7.4 3/39/58/26/94% saturation on CMV 450/15/6/50 % FiO2 - Increase PEEP to 8 -Continue DuoNeb nebulizations every 6 hours scheduled -Continue to titrate down FiO2 and once FiO2 is about 35 to 40%-we will attempt to taper off sedation and breathing trial to evaluate for possible extubation -off pressor -Continue hemodynamic monitoring -Net +7 L since admission; -Normal renal function -Given a dose of Lasix 40 mg -Sodium 147, potassium 3.5, bicarb 25, anion gap 12, CK 29 -started on d5NS @ 40 mls/hr for 500 cc and recheck BMP for Na and K in the evening -Monitor renal functions, electrolytes, input and output closely -Elevated LFTs-abdominal ultrasound today showed single gallstone measuring 16 mm, no GB wall thickening or pericholecystic fluid -Sugars not well controlled; started on scale coverage -Currently NPO; difficult to pass NG tube - recommended PEG tube as he is less likely to comply with PO feeds due to underlying severe dementia - famotidine 20 mg twice daily for GI prophylaxis -Already on anticoagulation for PE-covered for DVT prophylaxis Recommendations conveyed to hospitalist, RN, RT covering the patient Attestations Medical Necessity Statement*: Acute hypoxic respiratory failure secondary to ARDS due to COVID-19 pneumonia and nonocclusive PE, difficulty weaning given his baseline dementia and underlying cerebral palsy, hypernatremia-needs close monitoring in ICU Time Spent in Patient Care: Greater than 35 minutes (>than 50% of time spent in counselling and/or direct pt care on unit). Critical Care Time: The high probability of a clinically significant, sudden or life threatening deterioration of the patient's [respiratory, neurologic, renal, infectious] system(s) required my full and direct attention, intervention and personal management. The critical care time is as shown. This time is in addition to time spent performing any reported procedures but includes the following: [x] Data and vital sign review and interpretation [x] Patient assessment, examination and intervention [x] Documentation [x] Medication orders and management Critical Care Time (min): 45 Coding Level of Care Code Established Pt Acute Supervisor Kosher Dietary Service for Chg Fwd Patient Type Established History Comprehensive Exam Comprehensive Medical Decision Making High Complexity Diagnoses Sepsis A41.9 Sepsis type: sepsis due to unspecified organism Sepsis acute organ dysfunction status: unspecified Respiratory failure with hypoxia J96.01 Chronicity: acute Pulmonary embolism I26.99 Pulmonary embolism type: unspecified Chronicity: acute Acute cor pulmonale presence: without acute cor pulmonale Pneumonia due to COVID-19 virus U07.1; J12.82 ARDS (adult respiratory distress syndrome) J80 Developmental delay, profound R62.50 Transaminitis R74.01 Hypokalemia E87.6 Time Spent (min) 45
--- NOTE | 2021-05-27 14:06 | P.PN_ITS ---
Subjective Subjective: Interval history: Patient was seen this morning, he remains intubated, sedated, this morning he is more awake, does not follow commands, pupils are equal round reactive to light, this morning his eye gaze is more horizontal rather than fixed upward gaze, he is moving his upper extremities, overnight he was afebrile, normotensive, good urine output, on 45% FiO2 In speaking with the patient's caregivers, patient has been feeding orally, through a modified diet, patient is a high aspiration risk, given his current intubation and his COVID-19 infection with respiratory failure, he does have high risk of future aspiration. During his hospitalization, placing a nasogast armond tube has been quite difficult, failure on after multiple attempts, he has been receiving temporary nutrition through IV fluids. After discussion with Dr. Galeano, the best long-term option for the patient would be PEG tube placement for appropriate feeding and medication administration. As he has COVID-19 infection, is on the ventilator, placing a PEG tube currently would benefit the patient allow for feeding, and would circumvent any further need for intubation if he was extubated and a PEG tube placement was required in the near future. Certainly in the near future, if he shows clinical progress, he can work with speech therapy to see if he could take feedings orally. I spoke to patient's public database security administrator, discussed our concerns, discussed the benefits of PEG tube placement, he voiced understanding, all questions answered, agreed to proceed with PEG tube placement. [employer] database security administrator name is Buster, Vitals/I&O/Wt Last Vital Signs Temp 98.3 F 05/27/21 04:00 Pulse 60 05/27/21 12:00 Resp 15 05/27/21 13:06 BP 105/63 05/27/21 12:00 Pulse Ox 98 05/27/21 13:06 05/26/21 05/27/21 05/27/21 22:59 06:59 14:59 Intake Total 490.879 / 2036.405 357.462 / 2393.867 83.127 / 83.127 Output Total 400 / 400 500 / 900 1000 / 1000 Balance 90.879 / 1636.405 -142.538 / 1493.867 -916.873 / -916.873 Weight last 48 hrs Weight 71.254 kg Weight 71.985 kg Physical Exam Narrative: EXAM NARRATIVE: Intubated, sedated, on sedation Const: COMMON NORMALS: no acute distress Eye: COMMON NORMALS: Equal, round and reactive pupils present PUPIL: Yes Equal, round and reactive pupils present Resp: COMMON NORMALS: normal respiratory effort, No retractions, No use of accessory muscles and clear to auscultation bilaterally AUSCULTATION: clear to auscultation bilaterally Cardio: COMMON NORMALS: regular rate, regular rhythm, S1 normal heart sound present and S2 normal heart sound present RATE: regular rate RHYTHM: regular rhythm HEART SOUNDS: S1 normal heart sound present and S2 normal heart sound present GI: COMMON NORMALS: Normal to inspection, nondistended, normoactive bowel sounds present, Soft to palpation and non-tender PALPATION: Yes Soft to palpation Extremity: COMMON NORMALS: no pedal edema OTHER: Flexion contracture of bilateral upper extremities Extensor posturing bilateral lower extremities No pitting edema Urinary Catheter Management^: Lamb: Cath Placed During This Visit: yes Reason for Continuing Indwelling Catheter: Accurate Measurement of Urinary Output in Critically Ill Patients Urinary Catheter Date of Insertion: 05/23/21 Urinary Catheter Time of Insertion: 14:48 Data : 05/27/21 04:24 05/27/21 04:24 Micro: Microbiology 05/21/21 09:30 Blood Culture - Final Blood NO GROWTH AFTER 5 DAYS A&P Assessment and plan (1) Respiratory failure with hypoxia: Acute Hypoxic respiratory failure secondary to Covid pneumonia, Secondary bacterial pneumonia, pulmonary embolism, sepsis According to patient's caregiver at [facility], at baseline he is a quadriplegic, history of low palsy, developmental delay, he needs assistance for feeding, he can smile at times, can track objects, does not follow commands Patient's public database security administrator is Starr Hobbs [phone] or Buster CT angio chest:PE protcl: Very small, nonocclusive age-indeterminate emboli in the proximal upper lobe pulmonary arteries and distal LEFT lower lobe pulmonary artery. Bilateral scattered pulmonary opacifications and probable reactive lymphadenopathy. Pneumonitis and pneumonia should be considered. Patient was recently discharged from hospital after receiving 4 days of remdesivir, as well as IV dexamethasone. Post readmission, he was placed on heated high flow oxygen through nasal cannula, due to worsening ABG as well as respiratory status, and his inability to tolerate BiPAP, and given high risk for aspiration.Patient was intubated and placed on mechanical ventilation. plan: Continue intubation, mechanical ventilation, minimize PEEP, minimize FiO2 Precedex, propofol for to minimal effective for appropriate sedation Monitor for sinus bradycardia Ativan for as needed anxiety Continue Keppra for history of seizures Will initiate extended course of remdesivir, given his worsening respiratory status Decadron 6 mg IV push daily He has also received 1 dose of tocilizumab 05/23/2021, possible second dose based on clinical progress Vitamin C, zinc, vitamin D Continue broad-spectrum antibiotic therapy vancomycin, Zosyn Maintain MAP in the 65, currently off Levophed Continue to monitor inflammatory markers (ESR CRP D-dimer ferritin ) Blood Culture : So far negative MRSA PCR negative Sputum culture pending Continue to monitor ABG On full dose Lovenox, on hold for possible procedure Monitor intake output: Avoid volume overload (current intake output which is charted is not correct as the patient is incontinent and Lamb was placed later ) Minimal pitting edema Hyponatremia, serum sodium 147, on D5 water at 40 cc, NG tube placements have been unsuccessful, long-term he might require PEG tube placement based on his extubation, and progress after extubation Given fixed upward gaze, head CT was ordered, no evidence of intracranial hemorrhage or mass-effect, dysgenesis of the corpus callosum was unchanged, Dandy-Walker variant with remaining hypoplasia echocardiogram of the heart shows EF of 62%, no regional wall motion abnormalities Plan on PEG tube placement, I spoke to patient's public database security administrator Buster, who agreed to proceed with procedure, will possibly have replaced this afternoon by Dr. Blackman Full code Lovenox for DVT prophylaxis, currently on hold for possible procedure Plan for today, continue antibiotics, continue remdesivir, continue Decadron, continue fluids, possible Lasix dose in the afternoon, plan for PEG tube placement, hold Lovenox Status: Acute Qualifiers: Chronicity: acute Qualified Code(s): J96.01 - Acute respiratory failure with hypoxia (2) Pneumonia due to COVID-19 virus: Status: Acute (3) Hypernatremia: D5 water @ 40 CC/HR Monitor BMP. Status: Acute (4) Pulmonary embolism: Lovenox every 12 hours. I do not believe he is able to take his Eliquis p .o. currently. Status: Acute Qualifiers: Acute cor pulmonale presence: without acute cor pulmonale Chronicity: acute Pulmonary embolism type: unspecified Qualified Code(s): I26.99 - Other pulmonary embolism without acute cor pulmonale (5) Thrombocytopenia: Continue to monitor closely Status: Acute (6) Dehydration: Hydration overnight Status: Acute (7) Transaminitis: May be secondary to COVID-19. Recheck in the morning Status: Acute (8) Developmental delay, profound: Patient with baseline profound developmental delay, nonverbal Status: Acute (9) Sepsis: Status: Acute Qualifiers: Sepsis type: sepsis due to unspecified organism Sepsis acute organ dysfunction status: unspecified Qualified Code(s): A41.9 - Sepsis, unspecified organism Additional A&P Information Full code Lovenox will suffice for DVT prophylaxis Attestations Medical Necessity Statement*: Patient requires hospitalization for acute respiratory failure secondary to COVID-19, pulmonary emboli, Coding Level of Care Code Acute Research Agricultural Engineer for [facility] Diagnoses Respiratory failure with hypoxia J96.01 Chronicity: acute Pneumonia due to COVID-19 virus U07.1; J12.82 Hypernatremia E87.0 Pulmonary embolism I26.99 Acute cor pulmonale presence: without acute cor pulmonale Chronicity: acute Pulmonary embolism type: unspecified Thrombocytopenia D69.6 Dehydration E86.0 Transaminitis R74.01 Developmental delay, profound R62.50 Sepsis A41.9 Sepsis type: sepsis due to unspecified organism Sepsis acute organ dysfunction status: unspecified
[2021-05-27] MEDS: dexamethasone 4 mg/mL INJ 6 MG IVP (15:06)
--- NOTE | 2021-05-27 16:52 | PC.NUTR ---
Tube feeding consult: Recommend Pulmocare 1.5, begin at 10 ml/hr, increase by 10 ml/hr q 8 hours to goal rate of 35 ml/hr, to provide 1260 kcal, 53 g protein, 659 ml H2O. MD has ordered 200 ml H2O flushes q6 hours, bringing fluid total to 1459 ml. Noted pt is currently receiving propofol at 14.8 ml/hr, providing additional 391 kcal/day. When no longer receiving propofol, would recommend an increase in TF goal rate to 45 ml/hr. Goals may also change if TF continued after extubation. RD available for further consult as needed.
[2021-05-27] MEDS: ascorbic acid 500 mg Tablet 1000 MG PO (18:16)
[2021-05-27 18:52] LABS: Anion Gap 12.4 (5-19); Blood Urea Nitrogen 14 mg/dL (8-23); Calcium 7.6 mg/dL (8.5-10.5); Carbon Dioxide 29 mmol/L (22-29); Chloride 112 mmol/L (98-107); Glomerular Filtration Rate 113.5 mL/min (90-130); Glucose 123 mg/dL (65-115); Osmolality Calculated 312 mOsm/kg (285-295); Potassium 3.4 mmol/L (3.5-5.1); Sodium 150 mmol/L (136-145)
--- NOTE | 2021-05-27 19:26 | P.CONIM_ITS ---
Providers/Reason For Consult Consulting Physician/Specialty*: General Surgery Dr. Blackman Reason for Consult*: PEG tube placement Attending Physician: Doni Dao MD Primary Care Provider: MANDI Stewart History of Present Illness History of Present Illness Jorge Luis Lucas is a 66 year old male admitted with respiratory failure from [place] [address]. Patient has history of cerebral palsy and is therefore expected to be on the ventilator for a while. An NGT could not be placed and therefore patient does not have any enteral access. Review of Systems General: Reports: ROS unobtainable due to mental status Meds/Allergies Home Medications and Allergies Home Medications Medication Instructions Recorded Confirmed Last Taken Type Calmoseptine 1 applic TOPICAL .ONCE TO TWICE 05/17/21 05/21/21 Unknown History DAILY PRN acetaminophen 650 mg PO Q6H PRN 05/17/21 05/21/21 Unknown History ascorbic acid (vitamin C) [Vitamin 250 mg PO DAILY@12 05/17/21 05/21/21 05/16/21 History C] atorvastatin 20 mg PO DAILY@05/17/21 05/21/21 05/16/21 History dextromethorphan-guaifenesin 5 ml PO Q4H PRN 05/17/21 05/21/21 Unknown History [Tussin DM] docosanol [Abreva] 1 applic TOPICAL DAILY PRN 05/17/21 05/21/21 Unknown History famotidine 20 mg PO DAILY PRN 05/17/21 05/21/21 Unknown History fluticasone propionate 1 spray INTRANASAL DAILY@08 05/17/21 05/21/21 05/17/21 History lactulose 30 ml PO . DAILY@08 AND PRN 05/17/21 05/21/21 05/17/21 History levetiracetam 1,500 mg PO BID@08,20 05/17/21 05/21/21 05/17/21 08:00 History loratadine 10 mg PO DAILY PRN 05/17/21 05/21/21 Unknown History magnesium hydroxide 30 ml PO DAILY PRN 05/17/21 05/21/21 Unknown History multivitamin 1 tab PO DAILY@08 05/17/21 05/21/21 05/17/21 History mupirocin 1 applic TOPICAL TID@08,12,05/17/21 05/21/2105/17/21 08:00 History olopatadine 1 drp OPHTHALMIC (EYE) BID PRN 05/17/21 05/21/21 Unknown History olopatadine 2 drp OPHTHALMIC (EYE) DAILY PRN 05/17/21 05/21/21 Unknown History pantoprazole 40 mg PO DAILY@08 05/17/21 05/21/21 05/17/21 08:00 History paroxetine HCl [Paxil] 10 mg PO DAILY@05/17/21 05/21/21 05/17/21 History perampanel 8 mg PO DAILY@05/17/21 05/21/21 05/16/21 History polyethylene glycol 3350 17 g PO DAILY@05/17/21 05/21/21 05/17/21 History sennosides 8.6 mg PO DAILY@05/17/21 05/21/21 05/17/21 08:00 History apixaban [Eliquis] 5 mg PO BID #60 tab 05/20/21 05/21/21 Unknown Rx dexamethasone 4 mg PO DAILY #7 tab 05/20/21 05/21/21 Unknown Rx fluticasone propion-salmeterol 1 inh INHALATION BID #60 ea 05/20/21 05/21/21 Unknown Rx [Advair Diskus] levofloxacin 500 mg PO DAILY 7 Days tab 05/20/21 05/21/21 Unknown Rx Allergies Allergy/AdvReac Type Severity Reaction Status Date / Time TIDE LAUNDRY SOAP Allergy ALGY-Rash Uncoded 05/17/21 14:49 Current Medications Current Medications Generic Name Dose Route Start Last Admin Trade Name Freq PRN Reason Stop Dose Admin Albuterol/Ipratropium 3 ml 05/23/21 21:00 05/27/21 14:12 Ipratropium-Albuterol 3 Ml Neb INHALATION 3 ml Q6H.RESPIRATORY SHWETA Administration Ascorbic Acid 1,000 mg 05/24/21 18:00 05/27/21 18:16 Ascorbic Acid 500 Mg Tablet PO 1,000 mg BID SHWETA Administration Dexamethasone 6 mg 05/21/21 14:30 05/27/21 15:06 Dexamethasone 4 Mg/Ml Inj IVP 6 mg Q24H SHWETA Administration Enoxaparin Sodium 80 mg 05/21/21 14:30 05/27/21 02:08 Enoxaparin 80 Mg/0.8 Ml Syringe SUBCUT 80 mg Q12H SHWETA Administration Famotidine 20 mg 05/21/21 16:00 05/27/21 15:07 Famotidine 20 Mg/2 Ml Inj IVP 20 mg Q12H SHWETA Administration Piperacillin Sod/Tazobactam 50 mls @ 12.5 mls/hr 05/21/21 11:00 05/27/21 18:15 Sod 3.375 gm/ Sodium Chloride IV 100 mls/hr Q8H SHWETA Administration Levetiracetam 1,000 mg/ Sodium 110 mls @ 440 mls/hr 05/21/21 15:00 05/27/21 16:54 Chloride IV Infused Q12H SHWETA Infusion Dexmedetomidine HCl 400 mcg/ 104 mls @ 0 mls/hr 05/23/21 14:15 05/23/21 16:22 Sodium Chloride IV 0 mcg/kg/hr .Q0M SHWETA 0 mls/hr Titration Protocol Per Protocol Norepinephrine Bitartrate 4 mg 254 mls @ 0 mls/hr 05/23/21 16:45 05/24/21 20:23 / Dextrose IV 0 mcg/min .Q0M SHWETA 0 mls/hr Titration Protocol Per Protocol Remdesivir 100 mg/ Sodium 100 mls @ 100 mls/hr 05/23/21 20:45 05/26/21 21:07 Chloride IV 05/27/21 21:44 Infused Q24H SHWETA Infusion Propofol 1,000 mg in 100 mls @ 0 mls/hr 05/25/21 07:00 05/27/21 16:54 Diprivan IV Infused .Q0M SHWETA Titration Protocol Per Protocol Insulin Aspart 0 unit 05/25/21 08:00 05/27/21 12:43 Insulin Aspart 100 Unit/1 Ml SUBCUT Not Given TIDWM SHWETA Protocol Lorazepam 2 mg 05/22/21 11:29 05/23/21 11:05 Lorazepam 2 Mg/Ml Inj 1 Ml IVP 2 mg Q6H PRN Administration ANXIETY Vitamin D 1,000 unit 05/24/21 14:45 05/27/21 09:59 Cholecalciferol (Vitamin D3) 1,000 Unit Tablet PO Not Given DAILY SHWETA Zinc Gluconate 50 mg 05/24/21 14:45 05/27/21 10:00 Zinc Gluconate 50 Mg Tablet PO Not Given DAILY SHWETA PFSH Acute PFSH: Medical History Developmental delay, profound Elevated lactic acid level Pneumonia due to COVID-19 virus Pulmonary embolism Thrombocytopenia Vitals/I&O/Wt Last Vital Signs Temp 97.3 F L 05/27/21 16:00 Pulse 82 05/27/21 16:55 Resp 15 05/27/21 17:45 BP 142/80 05/27/21 16:00 Pulse Ox 98 05/27/21 17:45 05/27/21 05/27/21 05/27/21 06:59 14:59 22:59 Intake Total 357.462 / 2393.867 83.127 / 443.127 360 / 443.127 Output Total 500 / 900 1000 / 1900 900 / 1900 Balance -142.538 / 1493.867 -916.873 / -1456.873 -540 / -1456.873 Weight last 48 hrs Weight 157 lb 1.411 oz Weight 158 lb 11.2 oz Physical Exam Narrative: EXAM NARRATIVE: HEENT: Normocephalic Eye: Sclera /conjunctiva normal Respiratory and chest: Currently on the ventilator Abdomen: Soft to palpation Neurological: Not assessed as patient is intubated Skin: Intact, no lesions appreciated on gross exam Urinary Catheter Management^: Lamb: Cath Placed During This Visit: yes Reason for Continuing Indwelling Catheter: Accurate Measurement of Urinary Output in Critically Ill Patients Urinary Catheter Date of Insertion: 05/23/21 Urinary Catheter Time of Insertion: 14:48 A&P Assessment and plan (1) Protein calorie malnutrition: 66-year-old male with history of cerebral palsy hospitalized for Covid 19 and he was also diagnosed with PE. Patient has been on the ventilator since 05/23/2021. Patient is a braga of the [facility] and it was deemed medical necessity by Dr. Maguire and Dr. Galeano Plan for PEG tube placement under MAC at the bedside Status: Acute Consult Attestations Medical Necessity Statement: As per attending physician Coding Level of Care Code Acute Brushing Operator for Chg Fwd Diagnoses Protein calorie malnutrition E46
[2021-05-27] MEDS: remdesivir 100 MG in sodium chloride 0.9% (100 ml) 100 ML IV (19:43)
--- NOTE | 2021-05-27 19:47 | PM.OP ---
Operative Report Date of procedure: May 27, 2021 Pre-op Diagnosis: Respiratory failure requiring enteral access Post-op Diagnosis: Normal EGD Procedure Done: Percutaneous endoscopic placement of 20 [place] [employer] Endovive gastrostomy tube Pathology: none sent Surgeon: Demarcus Blackman Anesthesia: MAC Condition: stable Disposition: PACU Procedure: The patient was taken to the Operating Room and was placed under monitored anesthesia care after antibiotic had been administered. A bite block was placed and Olympus gastroscope was introduced and advanced up to the stomach and the first portion of the duodenum. There were no abnormalities noted in the esophagus, stomach and duodenum. The site for the planned PEG was confirmed in the left upper quadrant with transillumination using gastroscope noted through the abdominal wall and indentation of the abdominal wall noted on the gastroscope. This site was marked, and total of 5 milliliters of 1% lidocaine was infiltrated. An 11-blade was used to make a stab incision. An introducer needle was passed through the abdominal wall into the gastric lumen and the needle removed and the needle removed and the sheath left behind. A guidewire was passed through the introducer needle into the gastric lumen and grasped with a snare attached to the gastroscope. The gastroscope was withdrawn along with the guidewire, which was attached to the 20-[place] EndoVive PEG tube. The guidewire was then pulled through the abdominal wall along with the PEG through the mouth into the gastric lumen until the inner disc was noted to stand against the gastric wall. The gastroscope was reintroduced to confirm good position. The outer disc was then attached and the two way valve was fixed to the PEG tube. The outer disc was noted to be at 4 centimeters at the skin level. Sterile dressing and abdominal binder was placed. The patient was stable throughout the procedure.
[2021-05-28] VITALS (113 sets, daily range): BP systolic 73–148; BP diastolic 43–92; PULSE 63–111; RESP 9–24; TEMP 36.6–36.9; O2SAT 78–96
[2021-05-28] MEDS: ipratropium-albuterol 3 mL Neb INHALATION ×4 (03:17→20:00)
[2021-05-28] MEDS: famotidine 20 mg/2 mL INJ IVP ×2 (03:17→16:18)
[2021-05-28] MEDS: enoxaparin 80 mg/0.8 mL Syringe SUBCUT ×2 (03:18→14:37)
[2021-05-28] MEDS: piperacillin-tazobactam 3.375 GM in sodium chloride 0.9% (plus) 50 ML IV ×3 (03:19→18:18)
[2021-05-28 04:02] LABS: Basophils % 0.2 %; Hematocrit 39.6 % (42.0-52.0); Hemoglobin 12.4 g/dL (11.7-16.6); Lymphocytes # 0.5 10^3/uL (0.8-4.8); Lymphocytes % 4.8 %; Mean Corpuscular HGB Conc 31.3 g/dL (30.0-36.0); Mean Corpuscular Hemoglobin 29.6 pg (28.0-34.0); Mean Corpuscular Volume 94.5 fL (80-94); Mean Platelet Volume 11.9 fL (7.4-10.4); Monocytes # 0.4 10^3/uL (0.2-0.9); Monocytes % 3.8 %; Neutrophils # 9.09 10^3/uL (1.8-7.7); Neutrophils % 89.7 %; Nucleated Red Blood Cells % 0.2 %; Platelet Count 221 10^3/cmm (130-400); Red Blood Count 4.19 10^6/uL (4.1-5.3); Red Cell Distribution Width 14.5 % (12.1-15.1); White Blood Count 10.1 10^3/uL (4.0-10.0)
[2021-05-28 04:29] LABS: NT Pro B Type Natriuretic Pept 193 pg/mL (0-125); Procalcitonin 0.13 ng/mL (0-0.5)
[2021-05-28 04:41] LABS: Alanine Aminotransferase 78 U/L (0-41); Albumin Level 2.7 g/dL (3.5-5.2); Alkaline Phosphatase 62 IU/L (40-130); Anion Gap 12.5 (5-19); Aspartate Amino Transferase 58 U/L (0-40); Blood Urea Nitrogen 15 mg/dL (8-23); C Reactive Protein 7.2 mg/L (0.0-4.9); Calcium 7.5 mg/dL (8.5-10.5); Carbon Dioxide 28 mmol/L (22-29); Chloride 110 mmol/L (98-107); Creatine Phosphokinase 36 U/L (39-308); Globulin 2.3 g/dL (1.3-4.6); Glomerular Filtration Rate 113.5 mL/min (90-130); Glucose 102 mg/dL (65-115); Osmolality Calculated 305 mOsm/kg (285-295); Phosphorus 2.9 mg/dL (2.5-4.5); Potassium 3.5 mmol/L (3.5-5.1); Sodium 147 mmol/L (136-145); Total Bilirubin 0.4 mg/dL (0.15-1.2)
[2021-05-28 04:47] LABS: INR 1.16 (0.8-1.2)
[2021-05-28] MEDS: propofol 1,000 MG/100 ML INJ 12.69 MG IV (06:03)
--- NOTE | 2021-05-28 07:00 | XR_ITS ---
WS: [id number] Portable AP upright chest, 05/28/2021 Clinical Data: sob Comparison: Portable chest, 05/25/2021. Findings: The endotracheal tube and right internal jugular venous catheter remain the same. The bilat eral pulmonary opacities are not changed. The heart size is normal. No pneumothorax is seen. There is a hiatal hernia behind the heart. XR/XR chest 1V portable [id number] Impression: 1. No change in endotracheal tube and internal jugular venous catheter. 2. No change in bilateral pulmonary opacities.
[2021-05-28 07:43] LABS: Glucose Point of Care 86 mg/dL (70-110)
[2021-05-28] MEDS: zinc gluconate 50 mg Tablet PO (08:50)
[2021-05-28] MEDS: metOLazone 5 MG Tablet 10 MG PEG-TUBE (08:50)
[2021-05-28] MEDS: FUROsemide 10 mg/mL SDV 4mL 40 MG IVP (08:50)
[2021-05-28] MEDS: cholecalciferol (vitamin D3) 1,000 unit Tablet 1000 UNIT PO (08:50)
[2021-05-28] MEDS: potassium chloride ER 20 mEq Tablet PO (08:50)
[2021-05-28] MEDS: ascorbic acid 500 mg Tablet 1000 MG PO ×2 (08:57→18:18)
--- NOTE | 2021-05-28 10:12 | PC.NURSE ---
Started Weaning trial. nurse started titrating down fentanyl and propofol.
[2021-05-28 12:52] LABS: Glucose Point of Care 89 mg/dL (70-110)
--- NOTE | 2021-05-28 13:27 | PC.NURSE ---
Held 1200 free water flush. Currently doing weaning trial.
[2021-05-28] MEDS: dexamethasone 4 mg/mL INJ 6 MG IVP (14:37)
--- NOTE | 2021-05-28 15:19 | PC.RESP ---
placed pt. back on AC mode at 1346. due to apnea and low sats.
[2021-05-28] MEDS: lanolin oint 7 gm 1 APPLIC TOPICAL (15:22)
--- NOTE | 2021-05-28 15:53 | PC.NUTR ---
Tube feeding follow up: Have provided the recommendations below to Dr. Dao, and received verbal instruction to enter orders, which has been done at this time. Pulmocare 1.5, begin at 10 ml/hr, increase by 10 ml/hr q 8 hours to goal rate of 35 ml/hr, with 250 ml H2O flushes q6, to provide 1260 kcal, 53 g protein, 1659 ml H2O. Additional 223 kcal from propofol noted at this time. TF recommendations to be adjusted per RD according to tolerance, weight changes, labs, respiratory status, and further estimation of nutritional needs. See RD assessment for further details.
--- NOTE | 2021-05-28 17:25 | PC.NURSE ---
Weaning trial failed. Patient placed back on sedation. Titrating propofol and fentanyl per protocol.
--- NOTE | 2021-05-28 17:26 | PC.NURSE ---
Tube feedings started in peg. Pulmocare 1.5. starting rate 10mL/hr, goal of 35mL/hr. 250cc free water flushes q6.
--- NOTE | 2021-05-28 18:05 | PM.PN ---
Subjective Subjective: Interval history: This morning patient was examined, sedation does not follow commands, but is moving his head, moving his extremities, will do a weaning trial this morning, try to extubate in the afternoon, he did have PEG tube placement successfully yesterday afternoon, Medications: Reviewed: Yes Vitals/I&O/Wt Last Vital Signs Temp 98.5 F 05/28/21 13:00 Pulse 106 H 05/28/21 15:45 Resp 24 H 05/28/21 15:20 BP 102/69 05/28/21 15:45 Pulse Ox 94 05/28/21 15:45 05/28/21 05/28/21 05/28/21 06:59 14:59 22:59 Intake Total 610.000 / 1275.960 208.477 / 208.477 197.883 / 406.360 Output Total 850 / 2750 1900 / 1900 Balance -240.000 / -1474.040 -1691.523 / -1691.523 197.883 / -1493.640 Weight last 48 hrs Weight 70.488 kg Weight 71.254 kg Physical Exam Const: COMMON NORMALS: no acute distress OTHER: Sedation is being weaned, does not follow commands, but is moving his upper extremities, moving his head Eye: COMMON NORMALS: Equal, round and reactive pupils present PUPIL: Yes Equal, round and reactive pupils present Resp: COMMON NORMALS: normal respiratory effort, No retractions, No use of accessory muscles and clear to auscultation bilaterally AUSCULTATION: clear to auscultation bilaterally Cardio: COMMON NORMALS: regular rate, regular rhythm, S1 normal heart sound present and S2 normal heart sound present RATE: regular rate RHYTHM: regular rhythm HEART SOUNDS: S1 normal heart sound present and S2 normal heart sound present GI: COMMON NORMALS: Normal to inspection, nondistended, normoactive bowel sounds present, Soft to palpation and non-tender PALPATION: Yes Soft to palpation Extremity: COMMON NORMALS: no pedal edema OTHER: Flexion contracture of bilateral upper extremities Extensor posturing bilateral lower extremities No pitting edema Urinary Catheter Management^: Lamb: Cath Placed During This Visit: yes Reason for Continuing Indwelling Catheter: Accurate Measurement of Urinary Output in Critically Ill Patients Urinary Catheter Date of Insertion: 05/23/21 Urinary Catheter Time of Insertion: 14:48 Data : 05/28/21 03:26 05/28/21 03:26 A&P Assessment and plan (1) Respiratory failure with hypoxia: Acute Hypoxic respiratory failure secondary to Covid pneumonia, Secondary bacterial pneumonia, pulmonary embolism, sepsis According to patient's caregiver at [facility], at baseline he is a quadriplegic, history of low palsy, developmental delay, he needs assistance for feeding, he can smile at times, can track objects, does not follow commands 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 Bilateral scattered pulmonary opacifications and probable reactive lymphadenopathy. Pneumonitis and pneumonia should be considered. Patient was recently discharged from hospital after receiving 4 days of remdesivir, as well as IV dexamethasone. Post readmission, he was placed on heated high flow oxygen through nasal cannula, due to worsening ABG as well as respiratory status, and his inability to tolerate BiPAP, and given high risk for aspiration.Patient was intubated and placed on mechanical ventilation. plan: Continue intubation, mechanical ventilation, minimize tidal volume, minimize FiO2 Sedation trial, weaning trial Precedex, propofol for to minimal effective for appropriate sedation Monitor for sinus bradycardia Ativan for as needed anxiety Continue Keppra for history of seizures Finished extended course of remdesivir, given his worsening respiratory status Decadron 6 mg IV push daily He has also received 1 dose of tocilizumab 05/23/2021, possible second dose based on clinical progress Vitamin C, zinc, vitamin D Continue broad-spectrum antibiotic therapy vancomycin, Zosyn Maintain MAP in the 65, currently off Levophed Continue to monitor inflammatory markers (ESR CRP D-dimer ferritin ) Blood Culture : So far negative MRSA PCR negative Sputum culture pending Continue to monitor ABG On full dose Lovenox Monitor intake output: Avoid volume overload (current intake output which is charted is not correct as the patient is incontinent and Lamb was placed later ) 40 mg of Lasix today with metolazone Hyponatremia, serum sodium 147 Tube feeds through PEG tube, start 10 cc, increase by 10 cc every 8 hours to goal of 35 cc, free water flushes to 50 cc every 6 hours Pulmocare Given fixed upward gaze, head CT was ordered, no evidence of intracranial hemorrhage or mass-effect, 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 Status: Acute (4) Pulmonary embolism: Lovenox every 12 hours. I do not believe he is able to take his Eliquis p.o. currently. Status: Acute Qualifiers: Acute cor pulmonale presence: without acute cor pulmonale Chronicity: acute Pulmonary embolism type: unspecified Qualified Code(s): I26.99 - Other pulmonary embolism without acute cor pulmonale (5) Thrombocytopenia: Continue to monitor closely Status: Acute (6) Dehydration: Hydration overnight Status: Acute (7) Transaminitis: May be secondary to COVID-19. Recheck in the morning Status: Acute (8) Developmental delay, profound: Patient with baseline profound developmental delay, nonverbal Status: Acute (9) Sepsis: Status: Acute Qualifiers: Sepsis type: sepsis due to unspecified organism Sepsis acute organ dysfunction status: unspecified Qualified Code(s): A41.9 - Sepsis, unspecified organism Additional A&P Information Full code Lovenox will suffice for DVT prophylaxis Attestations Medical Necessity Statement*: Patient requires hospitalization for acute respiratory failure secondary COVID-19 Coding Level of Care Code Acute Cad Developer for [facility] [place] [facility] Diagnoses Respiratory failure with hypoxia J96.01 Chronicity: acute Pneumonia due to COVID-19 virus U07.1; J12.82 Hypernatremia E87.0 Pulmonary embolism I26.99 Acute cor pulmonale presence: without acute cor pulmonale Chronicity: acute Pulmonary embolism type: unspecified Thrombocytopenia D69.6 Dehydration E86.0 Transaminitis R74.01 Developmental delay, profound R62.50 Sepsis A41.9 Sepsis type: sepsis due to unspecified organism Sepsis acute organ dysfunction status: unspecified
--- NOTE | 2021-05-28 18:09 | P.PN_ITS ---
Subjective Subjective: Interval history: No issues with flushing the PEG tube, patient is waiting to be extubated Vitals/I&O/Wt Last Vital Signs Temp 98.5 F 05/28/21 13:00 Pulse 106 H 05/28/21 15:45 Resp 24 H 05/28/21 15:20 BP 102/69 05/28/21 15:45 Pulse Ox 94 05/28/21 15:45 05/28/21 05/28/21 05/28/21 06:59 14:59 22:59 Intake Total 610.000 / 1275.960 208.477 / 406.360 197.883 / 406.360 Output Total 850 / 2750 1900 / 1900 Balance -240.000 / -1474.040 -1691.523 / -1493.640 197.883 / -1493.640 Weight last 48 hrs Weight 155 lb 6.4 oz Weight 157 lb 1.411 oz Physical Exam Narrative: EXAM NARRATIVE: Abdomen: Soft, PEG tube left upper quadrant, no significant erythema or hematoma Urinary Catheter Management^: Lamb: Cath Placed During This Visit: yes Reason for Continuing Indwelling Catheter: Accurate Measurement of Urinary Output in Critically Ill Patients Urinary Catheter Date of Insertion: 05/23/21 Urinary Catheter Time of Insertion: 14:48 Data : 05/28/21 03:26 05/28/21 03:26 A&P Assessment and plan (1) S/P percutaneous endoscopic gastrostomy (PEG) tube placement: 66-year-old male with respiratory failure, learning disability, was positive COVID-19 on the ventilator. Status post PEG tube placement Okay to use the PEG tube, advance to goal as tolerated based on dressmaker garment fitter recommendations. Status: Acute Attestations Medical Necessity Statement*: As per primary Coding Level of Care Code Acute [place] [employer] Member for Chg Fwd Diagnoses S/P percutaneous endoscopic gastrostomy (PEG) tube placement Z93.1
[2021-05-28 18:27] LABS: Glucose Point of Care 126 mg/dL (70-110)
--- NOTE | 2021-05-28 18:35 | P.PN_ITS ---
Subjective Subjective: Interval history: attempted weaning trial today had apnea episodes and desaturated to mid 80s will try again tomorrow labs and imaging reviewed Medications: Reviewed: Yes Vitals/I&O/Wt Last Vital Signs Temp 98.5 F 05/28/21 13:00 Pulse 106 H 05/28/21 15:45 Resp 15 05/28/21 18:09 BP 102/69 05/28/21 15:45 Pulse Ox 95 05/28/21 18:09 05/28/21 05/28/21 05/28/21 06:59 14:59 22:59 Intake Total 610.000 / 1275.960 208.477 / 208.477 197.883 / 406.360 Output Total 850 / 2750 1900 / 1900 Balance -240.000 / -1474.040 -1691.523 / -1691.523 197.883 / -1493.640 Weight last 48 hrs Weight 155 lb 6.4 oz Weight 157 lb 1.411 oz Physical Exam Narrative: EXAM NARRATIVE: General: Lying in bed, sedated and intubated. HEENT:NCAT, PERRLA, EOMI Neck: Supple Lungs: normal breathsounds bilaterally Heart: s1/s2, RRR Abd: soft, PEG tube left upper quadrant, NT, ND, BS + Normoactive Extremities: No edema, flexion contracture of bilateral upper extremities, extensor posturing bilateral lower extremities, 1+ pitting pedal edema PROFESSOR OF BUSINESS: sedated and limited PROFESSOR OF BUSINESS exam possible. SKIN: no rash Urinary Catheter Management^: Lamb: Cath Placed During This Visit: yes Reason for Continuing Indwelling Catheter: Accurate Measurement of Urinary Output in Critically Ill Patients Urinary Catheter Date of Insertion: 05/23/21 Urinary Catheter Time of Insertion: 14:48 Data : 05/28/21 03:26 05/28/21 03:26 Other Labs: Laboratory Results WBC 10.1 10^3/uL (4.0-10.0) H 05/28/21 03:26 RBC 4.19 10^6/uL (4.1-5.3) 05/28/21 03:26 Hgb 12.4 g/dL (11.7-16.6) 05/28/21 03:26 Hct 39.6 % (42.0-52.0) L 05/28/21 03:26 MCV 94.5 fL (80-94) H 05/28/21 03:26 MCH 29.6 pg (28.0-34.0) 05/28/21 03:26 MCHC 31.3 g/dL (30.0-36.0) 05/28/21 03:26 RDW 14.5 % (12.1-15.1) 05/28/21 03:26 Plt Count 221 10^3/cmm (130-400) 05/28/21 03:26 MPV 11.9 fL (7.4-10.4) H 05/28/21 03:26 Neut % (Auto) 89.7 % 05/28/21 03:26 Lymph % (Auto) 4.8 % 05/28/21 03:26 Valencia % (Auto) 3.8 % 05/28/21 03:26 Eos % (Auto) 0.0 % 05/28/21 03:26 Baso % (Auto) 0.2 % 05/28/21 03:26 Neut # (Auto) 9.09 10^3/uL (1.8-7.7) H 05/28/21 03:26 Lymph # (Auto) 0.5 10^3/uL (0.8-4.8) L 05/28/21 03:26 Valencia # (Auto) 0.4 10^3/uL (0.2-0.9) 05/28/21 03:26 Eos # (Auto) 0.0 10^3/uL (0.0-0.8) 05/28/21 03:26 Baso # (Auto) 0.0 10^3/uL (0.0-0.1) 05/28/21 03:26 Nucleated RBC % (auto) 0.2 % 05/28/21 03:26 Nucleated RBCs # 0.0 /100WBC 05/28/21 03:26 ESR 25 mm/hr (0-10) H 05/25/21 02:39 PT 15.10 SECONDS (12.1-14.9) H 05/28/21 04:20 INR 1.16 (0.8-1.2) 05/28/21 04:20 Fibrinogen 320 mg/dL (174-498) 05/27/21 04:24 D-Dimer <= 0.27 ug/mIFEU (0-0.59) 05/26/21 05:00 Specimen Type Arterial 05/27/21 05:30 Sample Site Radial, left 05/27/21 05:30 ABG pH 7.43 (7.35-7.45) 05/27/21 05:30 ABG pCO2 39.9 mmHg (35-45) 05/27/21 05:30 ABG pO2 58.7 mmHg (80.0-100.0) L 05/27/21 05:30 ABG HCO3 26.4 mmol/L (22-26) H 05/27/21 05:30 ABG O2 Saturation 99.7 05/23/21 17:17 ABG Base Excess 1.9 mmol/L (-2.0-2.0) 05/27/21 05:30 Palmer Test Pos 05/27/21 05:30 A-a O2 Gradient 55.8 mmHg (5-10) H 05/23/21 17:17 Hematocrit 39.4 % (42-52) L 05/27/21 05:30 Hgb O2 Saturation 98.5 % (95-100) 05/23/21 17:17 Carboxyhemoglobin 0.2 %THgb (0.4-20.1) L 05/23/21 17:17 Methemoglobin 1.0 % (0.4-1.5) 05/23/21 17:17 Total Hemoglobin 14.1 g/dL (14-18) 05/23/21 17:17 Sodium 152.0 mmol/L (131-143) H 05/23/21 17:17 Potassium 3.0 mmol/L (3.5-5.0) L 05/23/21 17:17 Glucose 203.0 mg/dL (70-115) H 05/23/21 17:17 Ionized Calcium 1.1 mmol/L (1.1-1.4) 05/23/21 17:17 O2 Delivery Device Vent 05/27/21 05:30 O2 Liters/Min 45.0 % 05/23/21 10:55 Mechanical Rate 14.0 05/23/21 17:17 FiO2 50.0 % 05/27/21 05:30 Tidal Volume 0.45 05/27/21 05:30 PEEP 6.0 cmH20 05/27/21 05:30 Wastewater Treatment Engineer ID 05/27/21 05:30 Sodium 147 mmol/L (136-145) H 05/28/21 03:26 Potassium 3.5 mmol/L (3.5-5.1) 05/28/21 03:26 Chloride 110 mmol/L (98-107) H 05/28/21 03:26 Carbon Dioxide 28 mmol/L (22-29) 05/28/21 03:26 Anion Gap 12.5 (5-19) 05/28/21 03:26 BUN 15 mg/dL (8-23) 05/28/21 03:26 Creatinine 0.7 mg/dL (0.7-1.2) 05/28/21 03:26 GFR Calculation 113.5 mL/min (90-130) 05/28/21 03:26 Glucose 102 mg/dL (65-115) 05/28/21 03:26 POC Glucose 126 mg/dL (70-110) H 05/28/21 18:22 Calculated Osmolality 305 mOsm/kg (285-295) H 05/28/21 03:26 Lactic Acid 3.1 mmol/L (0.5-2.2) H 05/21/21 08:30 Lactic Acid (Sepsis) 1.6 mmol/L (0.5-2.2) 05/21/21 11:49 Lactate 1.1 mmol/L (0.5-2.2) 05/27/21 04:24 Calcium 7.5 mg/dL (8.5-10.5) L 05/28/21 03:26 Phosphorus 2.9 mg/dL (2.5-4.5) 05/28/21 03:26 Magnesium 2.0 mg/dL (1.7-2.3) 05/28/21 03:26 Ferritin 414 ng/mL (30-400) H 05/26/21 05:00 Total Bilirubin 0.4 mg/dL (0.15-1.2) 05/28/21 03:26 AST 58 U/L (0-40) H 05/28/21 03:26 ALT 78 U/L (0-41) H 05/28/21 03:26 Alkaline Phosphatase 62 IU/L (40-130) 05/28/21 03:26 Ammonia 68 umol/L (16-60) H 05/25/21 02:39 Creatine Kinase 36 U/L (39-308) L 05/28/21 03:26 C-Reactive Protein 7.2 mg/L (0.0-4.9) H 05/28/21 03:26 NT-Pro-B Natriuret Pep 193 pg/mL (0-125) H 05/28/21 03:26 Total Protein 5.0 g/dL (6.6-8.7) L 05/28/21 03:26 Albumin 2.7 g/dL (3.5-5.2) L 05/28/21 03:26 Globulin 2.3 g/dL (1.3-4.6) 05/28/21 03:26 Lipase 31 U/L (13-60) 05/21/21 08:30 Procalcitonin 0.13 ng/mL (0-0.5) 05/28/21 03:26 Urine Color Cancelled 05/22/21 12:45 Urine Color Yellow (Yellow) 05/22/21 12:45 Urine Appearance Cancelled 05/22/21 12:45 Urine Appearance Clear (CLEAR) 05/22/21 12:45 Urine pH 6 (5-7) 05/22/21 12:45 Urine pH Cancelled 05/22/21 12:45 Ur Specific [place] 1.015 (1.005-1.030) 05/22/21 12:45 Ur Specific [place] Cancelled 05/22/21 12:45 Urine Protein Cancelled 05/22/21 12:45 Urine Protein Trace (Negative) 05/22/21 12:45 Urine Glucose (UA) Cancelled 05/22/21 12:45 Urine Glucose (UA) Norm (Normal) 05/22/21 12:45 Urine Ketones 2+ (Negative) H 05/22/21 12:45 Urine Ketones Cancelled 05/22/21 12:45 Urine Blood 2+ (Negative) H 05/22/21 12:45 Urine Blood Cancelled 05/22/21 12:45 Urine Nitrate Cancelled 05/22/21 12:45 Urine Nitrate Negative (Negative) 05/22/21 12:45 Urine Bilirubin Cancelled 05/22/21 12:45 Urine Bilirubin Neg (Negative) 05/22/21 12:45 Prot Sulfosalicylic Acd Cancelled 05/22/21 12:45 Urine Urobilinogen Cancelled 05/22/21 12:45 Urine Urobilinogen Norm mg/dL (Negative) 05/22/21 12:45 Ur Leukocyte Esterase Cancelled 05/22/21 12:45 Ur Leukocyte Esterase Negative (Negative) 05/22/21 12:45 Urine RBC 0-4 /hpf (0-2) H 05/22/21 12:45 Urine WBC 0-4 /hpf (0-5) H 05/22/21 12:45 Ur Squamous Epith Cells None /hpf (0-5) 05/22/21 12:45 Amorphous Sediment Not Reportable 05/22/21 12:45 Urine Bacteria Trace /hpf (NONE) 05/22/21 12:45 Vancomycin Trough 21.3 ug/mL (10-15) H 05/26/21 10:05 Impressions Abdomen Ultrasound 05/24/21 09:12 IMPRESSION: 1. Hepatomegaly with diffuse fatty infiltration. 2. Single gallstone measuring 16 mm.Common bile duct at the upper limits of normal but within normal limits. No gallbladder wall thickening or pericholecystic fluid. 3. No hydronephrosis in either kidney. Head CT 05/25/21 09:04 IMPRESSION: 1. No evidence of intracranial hemorrhage or mass effect. 2. Mild small vessel changes. Moderate parenchymal volume loss. 3. 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 4. Paranasal sinus fluid and opacification as described above. Chest X-Ray 05/28/21 07:00 Impression: 1. No change in endotracheal tube and internal jugular venous catheter. 2. No change in bilateral pulmonary opacities. A&P Assessment and plan (1) Sepsis: Status: Acute Qualifiers: Sepsis type: sepsis due to unspecified organism Sepsis acute organ dysf unction status: unspecified Qualified Code(s): A41.9 - Sepsis, unspecified organism (2) Respiratory failure with hypoxia: Status: Acute Qualifiers: Chronicity: acute Qualified Code(s): J96.01 - Acute respiratory failure with hypoxia (3) Pulmonary embolism: Status: Acute Qualifiers: Acute cor pulmonale presence: without acute cor pulmonale Chronicity: acute Pulmonary embolism type: unspecified Qualified Code(s): I26.99 - Other pulmonary embolism without acute cor pulmonale (4) Pneumonia due to COVID-19 virus: Status: Acute (5) ARDS (adult respiratory distress syndrome): Status: Acute (6) Developmental delay, profound: Status: Acute (7) Transaminitis: Status: Acute (8) Hypokalemia: Status: Acute #Acute hypoxic respiratory failure secondary ARDS due to to COVID-19 pneumonia #CT evidence of nonocclusive PE #Altered mental status secondary to cerebral palsy and sepsis #Elevated transaminases-likely secondary to Covid -CTA 05/17/2021:Very small, nonocclusive age-indeterminate emboli in the proximal upper lobe pulmonary arteries and distal LEFT lower lobe pulmonary artery. Bilateral scattered pulmonary opacifications and probable reactive lymphadenopathy. Pneumonitis and pneumonia should be considered. -COVID-19 PCR + 05/17/2021, -Influenza A and B antigen, MRSA nares, sputum cultures, blood cultures negative -Afebrile last 24 hours, normal WBC count, lactic acid, procalcitonin -improving ESR, ferritin, CRP, and normal [id number] every 48 hours -Continue Zosyn and discontinue Vancomycin -Received remdesivir 4 doses during prior admission and currently on extended course for 5 more days -Continue dexamethasone 6 mg daily - Continue Lovenox 80 every 12-therapeutic dose for confirmed PE on CTA 05/17/2021 -Sedated and mechanically ventilated -ET tube exchanged over a bougie on 05/25/2021 -Currently on fentanyl 100 MCG/hour and on propofol 35 MCG/ - if becomes bradycardic again- titrate down propofol and start on versed if needed. -On Keppra 1 g twice daily -Head CT 05/25/2021: No acute changes. 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 -Echocardiogram of the heart shows EF of 62%, no regional wall motion abnormalities -on CMV 450/15/6/40 % FiO2 -Continue DuoNeb nebulizations every 6 hours scheduled -continue awakening and breathing trials -off pressor -Continue hemodynamic monitoring -Net +7 L since admission; -Normal renal function -Given a dose of Lasix 40 mg -Sodium 147, potassium 3.5, bicarb 28, anion gap 12, CK 29 -free water through PEG tube and recheck BMP for Na and K in the evening -Monitor renal functions, electrolytes, input and output closely -Elevated LFTs-abdominal ultrasound today showed single gallstone measuring 16 mm, no GB wall thickening or pericholecystic fluid -Sugars not well controlled; started on scale coverage -Currently PEG feeds as per nutrition; s/p PEG tube placement 05/28/21; as he is less likely to comply with PO feeds due to underlying severe dementia - famotidine 20 mg twice daily for GI prophylaxis -Already on anticoagulation for PE-covered for DVT prophylaxis Recommendations conveyed to hospitalist, RN, RT covering the patient Attestations Medical Necessity Statement*: Acute hypoxic respiratory failure secondary to ARDS due to COVID-19 pneumonia and nonocclusive PE, difficulty weaning given his baseline dementia and underlying cerebral palsy, hypernatremia-needs close monitoring in ICU Time Spent in Patient Care: Greater than 35 minutes (>than 50% of time s pent in counselling and/or direct pt care on unit) . Critical Care Time: The high probability of a clinically significant, sudden or life threatening deterioration of the patient's [respiratory, neurologic, renal, infectious] system(s) required my full and direct attention, intervention and personal management. The critical care time is as shown. This time is in addition to time spent performing any reported procedures but includes the following: [x] Data and vital sign review and interpretation [x] Patient assessment, examination and intervention [x] Documentation [x] Medication orders and management Critical Care Time (min): 45 Coding Level of Care Code Established Pt Acute Assembly Department Supervisor for Chg Fwd Patient Type Established History Comprehensive Exam Comprehensive Medical Decision Making High Complexity Diagnoses Sepsis A41.9 Sepsis type: sepsis due to unspecified organism Sepsis acute organ dysfunction status: unspecified Respiratory failure with hypoxia J96.01 Chronicity: acute Pulmonary embolism I26.99 Acute cor pulmonale presence: without acute cor pulmonale Chronicity: acute Pulmonary embolism type: unspecified Pneumonia due to COVID-19 virus U07.1; J12.82 ARDS (adult respiratory distress syndrome) J80 Developmental delay, profound R62.50 Transaminitis R74.01 Hypokalemia E87.6 Time Spent (min) 45
[2021-05-28] MEDS: propofol 1,000 MG/100 ML INJ 8.46 MG IV (19:29)
[2021-05-29] VITALS (107 sets, daily range): BP systolic 78–121; BP diastolic 43–72; PULSE 69–108; RESP 9–17; TEMP 36.6–37.6; O2SAT 86–100
[2021-05-29] MEDS: ipratropium-albuterol 3 mL Neb INHALATION ×4 (01:59→20:45)
[2021-05-29] MEDS: enoxaparin 80 mg/0.8 mL Syringe SUBCUT ×2 (03:15→14:13)
[2021-05-29] MEDS: famotidine 20 mg/2 mL INJ IVP (03:16)
[2021-05-29] MEDS: piperacillin-tazobactam 3.375 GM in sodium chloride 0.9% (plus) 50 ML IV ×3 (03:16→18:18)
[2021-05-29 04:59] LABS: Basophils % 0.1 %; Eosinophils % 0.1 %; Hematocrit 29.8 % (42.0-52.0); Hemoglobin 9.5 g/dL (11.7-16.6); Lymphocytes # 0.6 10^3/uL (0.8-4.8); Lymphocytes % 7.6 %; Mean Corpuscular HGB Conc 31.9 g/dL (30.0-36.0); Mean Corpuscular Hemoglobin 30.4 pg (28.0-34.0); Mean Corpuscular Volume 95.2 fL (80-94); Monocytes # 0.4 10^3/uL (0.2-0.9); Neutrophils # 6.58 10^3/uL (1.8-7.7); Neutrophils % 86.2 %; Nucleated Red Blood Cells % 0 %; Platelet Count 152 10^3/cmm (130-400); Red Blood Count 3.13 10^6/uL (4.1-5.3); Red Cell Distribution Width 14.5 % (12.1-15.1); White Blood Count 7.6 10^3/uL (4.0-10.0)
[2021-05-29 05:30] LABS: NT Pro B Type Natriuretic Pept 232 pg/mL (0-125); Procalcitonin 0.15 ng/mL (0-0.5)
[2021-05-29 05:37] LABS: INR 1.22 (0.8-1.2)
[2021-05-29 05:41] LABS: Alanine Aminotransferase 78 U/L (0-41); Albumin Level 2.6 g/dL (3.5-5.2); Alkaline Phosphatase 66 IU/L (40-130); Anion Gap 17.1 (5-19); Aspartate Amino Transferase 42 U/L (0-40); Blood Urea Nitrogen 20 mg/dL (8-23); C Reactive Protein 5.2 mg/L (0.0-4.9); Calcium 7.9 mg/dL (8.5-10.5); Carbon Dioxide 29 mmol/L (22-29); Chloride 104 mmol/L (98-107); Creatine Phosphokinase 29 U/L (39-308); Globulin 2.3 g/dL (1.3-4.6); Glucose 98 mg/dL (65-115); Osmolality Calculated 307 mOsm/kg (285-295); Phosphorus 3.5 mg/dL (2.5-4.5); Potassium 3.1 mmol/L (3.5-5.1); Sodium 147 mmol/L (136-145); Total Bilirubin 0.5 mg/dL (0.15-1.2); Total Protein 4.9 g/dL (6.6-8.7)
--- NOTE | 2021-05-29 07:00 | XRR_ITS ---
PROCEDURE INFORMATION: Exam: XR Chest Exam date and time: 05/29/2021 7:00 AM Age: 66 years old Clinical indication: Dyspnea; Additional info: SOB TECHNIQUE: Imaging protocol: XR of the chest. Views: 1 view. COMPARISON: CR XR chest 1V portable [id number] 05/28/2021 5:20 AM FINDINGS: Tubes, catheters and devices: An endotracheal tube is present with its tip 7 cm above the love. A right jugular venous catheter is present with the tip projecting in the SVC. Lungs: Prominent bilateral interstitial pulmonary infiltrates are present which have not significantly changed allowing for differences in patient positioning. Pleural spaces: Unremarkable. No pleural effusion. No pneumothorax. Heart/Mediastinum: Heart is not enlarged. Bones/joints: Unremarkable. XR/XR chest 1V portable [id number] IMPRESSION: 1. Satisfactory position of the endotracheal tube and central venous catheter. 2. Stable bilateral interstitial pulmonary infiltrates.
[2021-05-29 07:53] LABS: Glucose Point of Care 102 mg/dL (70-110)
[2021-05-29 09:20] LABS: Reticulocyte % 1.1 % (0.5-2.0)
[2021-05-29] MEDS: FUROsemide 10 mg/mL SDV 4mL 40 MG IVP (09:22)
[2021-05-29] MEDS: lidocaine 1% 5 ML in potassium chloride premix 100 ML 50 ML IV (09:23)
[2021-05-29] MEDS: metOLazone 5 MG Tablet PO (09:24)
[2021-05-29] MEDS: pantoprazole 40 mg SDV IVP ×2 (09:24→21:24)
[2021-05-29] MEDS: zinc gluconate 50 mg Tablet PO (09:25)
[2021-05-29] MEDS: cholecalciferol (vitamin D3) 1,000 unit Tablet 1000 UNIT PO (09:25)
[2021-05-29] MEDS: ascorbic acid 500 mg Tablet 1000 MG PO ×2 (09:25→18:19)
[2021-05-29 09:58] LABS: Ferritin 349 ng/mL (30-400); Iron 49 ug/dL (59-158)
--- NOTE | 2021-05-29 10:50 | P.PN_ITS ---
Subjective Subjective: Interval history: Yesterday in the afternoon, during his spontaneous breathing trial, patient had apneic episodes lasting a few seconds, no desaturations during these episodes, but did develop hypoxia, thus he was not extubated, still +3 L, afebrile overnight, blood pressures are a bit soft this morning, on 40% FiO2, afebrile, urine output 3150 Vitals/I&O/Wt Last Vital Signs Temp 98.0 F 05/29/21 08:00 Pulse 81 05/29/21 10:00 Resp 13 05/29/21 08:23 BP 106/62 05/29/21 10:00 Pulse Ox 89 L 05/29/21 10:00 05/28/21 05/29/21 05/29/21 22:59 06:59 14:59 Intake Total 264.521 / 472.998 588.360 / 1061.358 784.125 / 784.125 Output Total 1350 / 3250 Balance -1085.479 / -2777.002 588.360 / -2188.642 784.125 / 784.125 Weight last 48 hrs Weight 70.08 kg Weight 70.488 kg Physical Exam Const: COMMON NORMALS: no acute distress ORIENTATION/CONSCIOUSNESS: not awake, not oriented to person, not oriented to place and not oriented to time OTHER: Currently intubated, sedated Eye: COMMON NORMALS: Equal, round and reactive pupils present PUPIL: Yes Equal, round and reactive pupils present Chest: COMMONS NORMALS: normal inspection of the chest Resp: COMMON NORMALS: normal respiratory effort, No retractions, No use of accessory muscles and clear to auscultation bilaterally AUSCULTATION: clear to auscultation bilaterally Cardio: COMMON NORMALS: regular rate, regular rhythm, S1 normal heart sound present and S2 normal heart sound present RATE: regular rate RHYTHM: regular rhythm HEART SOUNDS: S1 normal heart sound present and S2 normal heart sound present GI: COMMON NORMALS: Normal to inspection, nondistended, normoactive bowel sounds present, Soft to palpation and non-tender PALPATION: Yes Soft to palpation OTHER: PEG tube in place, clean and dry Extremity: NARRATIVE EXTREMITY EXAM: 1+ pitting edema OTHER: Flexion contracture of bilateral upper extremities Extensor posturing bilateral lower extremities No pitting edema Neuro: SENSORIUM/ORIENTATION: No oriented to person, No oriented to place and No oriented to time Urinary Catheter Management^: Lamb: Cath Placed During This Visit: yes Reason for Continuing Indwelling Catheter: Accurate Measurement of Urinary Output in Critically Ill Patients Urinary Catheter Date of Insertion: 05/23/21 Urinary Catheter Time of Insertion: 14:48 Data : 05/29/21 03:20 05/29/21 03:20 A&P Assessment and plan (1) Respiratory failure with hypoxia: Acute Hypoxic respiratory failure secondary to Covid pneumonia, Secondary bacterial pneumonia, pulmonary embolism, sepsis According to patient's caregiver at [facility], at baseline he is a quadriplegic, history of low palsy, developmental delay, he needs assistance for feeding, he can smile at times, can track objects, does not follow commands Patient's public traffic administrator is Starr Hobbs [phone] or Buster CT angio chest:PE protcl: Very small, nonocclusive age-indeterminate emboli in the proximal upper lobe pulmonary arteries and distal LEFT lower lobe pulmonary artery. Bilateral scattered pulmonary opacifications and probable reactive lymphadenopathy. Pneumonitis and pneumonia should be considered. Patient was recently discharged from hospital after receiving 4 days of remdesivir, as well as IV dexamethasone. Post readmission, he was placed on heated high flow oxygen through nasal cannula, due to worsening ABG as well as respiratory status, and his inability to tolerate BiPAP, and given high risk for aspiration.Patient was intubated and placed on mechanical ventilation. plan: Continue intubation, mechanical ventilation, minimize tidal volume, minimize FiO2 Sedation trial, weaning trial Will attempt to extubate in the next 24 to 48 hours however patient is a high risk of reintubation, will do her best to avoid this, but if he is reintubated likely will require tracheostomy Precedex, propofol for to minimal effective for appropriate sedation Monitor for sinus bradycardia Ativan for as needed anxiety Continue Keppra for history of seizures Finished extended course of remdesivir, given his worsening respiratory status Decadron 6 mg IV push daily He has also received 1 dose of tocilizumab 05/23/2021, possible second dose based on clinical progress Vitamin C, zinc, vitamin D Continue broad-spectrum antibiotic therapy vancomycin, Zosyn Maintain MAP in the 65, currently off Levophed Continue to monitor inflammatory markers (ESR CRP D-dimer ferritin ) Blood Culture : So far negative MRSA PCR negative Sputum culture pending Continue to monitor ABG On full dose Lovenox Hemoglobin 9.5, iron studies, Hemoccult stool, Protonix 40 twice daily Monitor intake output: Avoid volume overload (current intake output which is charted is not correct as the patient is incontinent and Lamb was placed later ) +3 L, 40 mg IV Lasix with metolazone, potassium replacement Hyponatremia, serum sodium 147 Tube feeds through PEG tube, start 10 cc, increase by 10 cc every 8 hours to goal of 35 cc, free water flushes to 50 cc every 6 hours Pulmocare Transaminitis secondary COVID-19 Given fixed upward gaze, head CT was ordered, no evidence of intracranial hemorrhage or mass-effect, 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 Status: Acute (4) Pulmonary embolism: Lovenox every 12 hours. I do not believe he is able to take his Eliquis p.o. currently. Status: Acute Qualifiers: Acute cor pulmonale presence: without acute cor pulmonale Chronicity: acute Pulmonary embolism type: unspecified Qualified Code(s): I26.99 - Other pulmonary embolism without acute cor pulmonale (5) Thrombocytopenia: Continue to monitor closely Status: Acute (6) Dehydration: Hydration overnight Status: Acute (7) Transaminitis: May be secondary to COVID-19. Recheck in the morning Status: Acute (8) Developmental delay, profound: Patient with baseline profound developmental delay, nonverbal Status: Acute (9) Sepsis: Status: Acute Qualifiers: Sepsis type: sepsis due to unspecified organism Sepsis acute organ dysfunction status: unspecified Qualified Code(s): A41.9 - Sepsis, unspecified organism Additional A&P Information Full code Lovenox will suffice for DVT prophylaxis Attestations Medical Necessity Statement*: Patient requires hospitalization for acute respiratory failure secondary to COVID-19 Coding Level of Care Code Acute Accounts Receivable Clerk for Chg Fwd Diagnoses Respiratory failure with hypoxia J96.01 Chronicity: acute Pneumonia due to COVID-19 virus U07.1; J12.82 Hypernatremia E87.0 Pulmonary embolism I26.99 Acute cor pulmonale presence: without acute cor pulmonale Chronicity: acute Pulmonary embolism type: unspecified Thrombocytopenia D69.6 Dehydration E86.0 Transaminitis R74.01 Developmental delay, profound R62.50 Sepsis A41.9 Sepsis type: sepsis due to unspecified organism Sepsis acute organ dysfunction status: unspecified
[2021-05-29] MEDS: lidocaine 1% 5 ML in potassium chloride premix 100 ML 25 ML IV (13:15)
[2021-05-29 13:35] LABS: Glucose Point of Care 106 mg/dL (70-110)
--- NOTE | 2021-05-29 14:07 | PC.NURSE ---
Per Dr spear, nurse paused all sedation. Will evaluate for possible extubation in 1 hour. nurse stopped tube feeding in anticipation of extubation.
[2021-05-29] MEDS: dexamethasone 4 mg/mL INJ 6 MG IVP (14:13)
--- NOTE | 2021-05-29 16:00 | PM.PN ---
Subjective Subjective: Interval history: Patient continues to be on the ventilator, had bleeding around the PEG tube, tolerating tube feeds at 30 cc/h Vitals/I&O/Wt Last Vital Signs Temp 98.9 F 05/29/21 14:00 Pulse 77 05/29/21 15:42 Resp 13 05/29/21 14:28 BP 108/62 05/29/21 14:00 Pulse Ox 92 05/29/21 14:28 05/29/21 05/29/21 05/29/21 06:59 14:59 22:59 Intake Total 588.360 / 1061.358 784.125 / 784.125 Output Total 1400 / 1400 Balance 588.360 / -2188.642 -615.875 / -615.875 Weight last 48 hrs Weight 154 lb 8 oz Weight 155 lb 6.4 oz Physical Exam Narrative: EXAM NARRATIVE: Abdomen: PEG tube in the left upper quadrant, no cellulitis or hematoma Urinary Catheter Management^: Lamb: Cath Placed During This Visit: yes Reason for Continuing Indwelling Catheter: Accurate Measurement of Urinary Output in Critically Ill Patients Urinary Catheter Date of Insertion: 05/23/21 Urinary Catheter Time of Insertion: 14:48 Data : 05/29/21 03:20 05/29/21 03:20 A&P Assessment and plan (1) S/P percutaneous endoscopic gastrostomy (PEG) tube placement: 66-year-old male with respiratory failure, learning disability, was positive COVID-19 on the ventilator. Status post PEG tube placement advance to goal as tolerated based on desktop support manager recommendations. Status: Acute Attestations Medical Necessity Statement*: As per primary Coding Level of Care Code Acute Retail Office Associate for Chg Fwd Diagnoses S/P percutaneous endoscopic gastrostomy (PEG) tube placement Z93.1
[2021-05-29 18:32] LABS: Glucose Point of Care 143 mg/dL (70-110)
--- NOTE | 2021-05-29 19:10 | PC.NURSE ---
SHift summary: Attempted another weaning trial which the patient failed. Patient was not taking over respirations on own. CUrrently patient is off of all sedation and is resting comfortably in bed. Per Dr spear we are keeping patient on MMV settings overnight and stay off of sedation if possible to allow patient to strengthen respirations. Ativan is ordered if needed.
[2021-05-29] MEDS: LORazepam 2 mg/mL INJ 1 mL IVP (22:48)
[2021-05-30] VITALS (59 sets, daily range): BP systolic 87–137; BP diastolic 51–89; PULSE 61–124; RESP 7–35; TEMP 36.3–37.7; O2SAT 87–98
[2021-05-30] MEDS: enoxaparin 80 mg/0.8 mL Syringe SUBCUT ×2 (03:06→14:15)
[2021-05-30] MEDS: piperacillin-tazobactam 3.375 GM in sodium chloride 0.9% (plus) 50 ML IV ×3 (03:07→18:31)
[2021-05-30] MEDS: ipratropium-albuterol 3 mL Neb INHALATION ×4 (03:07→20:25)
[2021-05-30] MEDS: LORazepam 2 mg/mL INJ 1 mL IVP (03:44)
[2021-05-30 03:58] LABS: Basophils % 0.2 %; Eosinophils % 0.3 %; Hemoglobin 13.3 g/dL (11.7-16.6); Lymphocytes % 9.2 %; Mean Corpuscular HGB Conc 31.7 g/dL (30.0-36.0); Mean Corpuscular Volume 94.6 fL (80-94); Monocytes # 0.5 10^3/uL (0.2-0.9); Monocytes % 4.8 %; Neutrophils # 8.76 10^3/uL (1.8-7.7); Neutrophils % 83.9 %; Nucleated Red Blood Cells % 0 %; Platelet Count 224 10^3/cmm (130-400); Red Blood Count 4.44 10^6/uL (4.1-5.3); Red Cell Distribution Width 14.3 % (12.1-15.1); White Blood Count 10.4 10^3/uL (4.0-10.0)
[2021-05-30 04:31] LABS: NT Pro B Type Natriuretic Pept 156 pg/mL (0-125); Procalcitonin 0.15 ng/mL (0-0.5)
[2021-05-30 04:42] LABS: Alanine Aminotransferase 71 U/L (0-41); Albumin Level 2.8 g/dL (3.5-5.2); Alkaline Phosphatase 69 IU/L (40-130); Anion Gap 15.2 (5-19); Aspartate Amino Transferase 36 U/L (0-40); Blood Urea Nitrogen 24 mg/dL (8-23); C Reactive Protein 4.3 mg/L (0.0-4.9); Calcium 8.1 mg/dL (8.5-10.5); Carbon Dioxide 29 mmol/L (22-29); Chloride 102 mmol/L (98-107); Creatine Phosphokinase 36 U/L (39-308); Globulin 2.6 g/dL (1.3-4.6); Glucose 116 mg/dL (65-115); Osmolality Calculated 301 mOsm/kg (285-295); Phosphorus 2.7 mg/dL (2.5-4.5); Potassium 3.2 mmol/L (3.5-5.1); Sodium 143 mmol/L (136-145); Total Bilirubin 0.6 mg/dL (0.15-1.2); Total Protein 5.4 g/dL (6.6-8.7)
[2021-05-30 04:49] LABS: INR 1.15 (0.8-1.2)
--- NOTE | 2021-05-30 07:00 | XRR_ITS ---
PROCEDURE INFORMATION: Exam: XR Chest Exam date and time: 05/30/2021 7:00 AM Age: 66 years old Clinical indication: Shortness of breath; Additional info: SOB TECHNIQUE: Imaging protocol: XR of the chest. Views: 1 view. COMPARISON: CR (CHEST, ) 05/29/2021 3:46 AM FINDINGS: Tubes, catheters and devices: An endotracheal tube is present with its tip 4.7 cm above the love. A right jugular venous catheter is present with the tip projecting in the SVC. Lungs: Extensive bilateral interstitial pulmonary infiltrates are present in the have not significantly changed. Pleural spaces: Unremarkable. No pleural effusion. No pneumothorax. Heart/Mediastinum: Unremarkable. No cardiomegaly. Bones/joints: Unremarkable. XR/XR chest 1V portable [id number] IMPRESSION: 1. Satisfactory position of the endotracheal tube and central venous catheter. 2. Stable bilateral interstitial pulmonary infiltrates.
[2021-05-30 09:32] LABS: Glucose Point of Care 114 mg/dL (70-110)
[2021-05-30] MEDS: FUROsemide 10 mg/mL SDV 4mL 40 MG IVP (09:49)
[2021-05-30] MEDS: lidocaine 1% 5 ML in potassium chloride premix 100 ML 25 ML IV (09:49)
[2021-05-30] MEDS: pantoprazole 40 mg SDV IVP ×2 (09:49→20:52)
[2021-05-30] MEDS: cholecalciferol (vitamin D3) 1,000 unit Tablet 1000 UNIT PO (09:50)
[2021-05-30] MEDS: metOLazone 5 MG Tablet 10 MG PO (09:50)
[2021-05-30] MEDS: zinc gluconate 50 mg Tablet PO (09:50)
[2021-05-30] MEDS: ascorbic acid 500 mg Tablet 1000 MG PO ×2 (09:50→17:58)
--- NOTE | 2021-05-30 10:15 | PC.NURSE ---
Fentanyl waste Lapidarist witnessed 55 mL of fentanyl wasted by Alice NESS.
--- NOTE | 2021-05-30 10:17 | PC.NURSE ---
55 ml of Fentanyl wasted with Mora Yeung RN.
--- NOTE | 2021-05-30 11:38 | P.PN_ITS ---
Subjective Subjective: Interval history: Patient has been off sedation since yesterday afternoon, he has been on MMV, no episodes of desaturation, no episodes of apnea, however this morning he does not follow commands, he is not alert, he does not move his head, does not respond to sternal rub, no episodes of agitation, does not withdraw from pain, afebrile overnight, normotensive, episodes of tachycardia, on 40% FiO2, -3.2 L Vitals/I&O/Wt Last Vital Signs Temp 98.2 F 05/30/21 08:00 Pulse 103 H 05/30/21 09:00 Resp 8 L 05/30/21 10:09 BP 112/70 05/30/21 09:00 Pulse Ox 91 05/30/21 10:09 05/29/21 05/30/21 05/30/21 22:59 06:59 14:59 Intake Total 666.474 / 1555.599 990 / 2545.599 50 / 50 Output Total 750 / 2150 275 / 2425 Balance -83.526 / -594.401 715 / 120.599 50 / 50 Weight last 48 hrs Weight 62.777 kg Weight 70.08 kg Physical Exam Const: ORIENTATION/CONSCIOUSNESS: not awake, not oriented to person, not oriented to place and not oriented to time Resp: COMMON NORMALS: normal respiratory effort, No retractions, No use of accessory muscles and clear to auscultation bilaterally AUSCULTATION: clear to auscultation bilaterally Cardio: COMMON NORMALS: regular rate, regular rhythm, S1 normal heart sound present and S2 normal heart sound present RATE: regular rate RHYTHM: regular rhythm HEART SOUNDS: S1 normal heart sound present and S2 normal heart sound present GI: COMMON NORMALS: Normal to inspection, nondistended, normoactive bowel sounds present and Soft to palpation PALPATION: Yes Soft to palpation OTHER: PEG tube in place, clean and dry Extremity: COMMON NORMALS: no pedal edema NARRATIVE EXTREMITY EXAM: 1+ pitting edema OTHER: Flexion contracture of bilateral upper extremities Extensor posturing bilateral lower extremities No pitting edema Neuro: SENSORIUM/ORIENTATION: No oriented to person, No oriented to place and No oriented to time Urinary Catheter Management^: Lamb: Cath Placed During This Visit: yes Reason for Continuing Indwelling Catheter: Accurate Measurement of Urinary Output in Critically Ill Patients Urinary Catheter Date of Insertion: 05/23/21 Urinary Catheter Time of Insertion: 14:48 Data : 05/30/21 03:38 05/30/21 03:38 Micro: Microbiology 05/29/21 00:10 Occult Blood (FIT) - Final Stool Routine Collection A&P Assessment and plan (1) Respiratory failure with hypoxia: Acute Hypoxic respiratory failure secondary to Covid pneumonia, Secondary bacterial pneumonia, pulmonary embolism, sepsis According to patient's caregiver at [facility], at baseline he is a quadriplegic, history of low palsy, developmental delay, he needs assistance for feeding, he can smile at times, can track objects, does not follow commands Patient's public employee relations administrator is Starr Hobbs [phone] or [facility] CT angio chest:PE protcl: Very small, nonocclusive age-indeterminate emboli in the proximal upper lobe pulmonary arteries and distal LEFT lower lobe pulmonary artery. Bilateral scattered pulmonary opacifications and probable reactive lymphadenopathy. Pneumonitis and pneumonia should be considered. Patient was recently discharged from hospital after receiving 4 days of remdesivir, as well as IV dexamethasone. Post readmission, he was placed on heated high flow oxygen through nasal cannula, due to worsening ABG as well as respiratory status, and his inability to tolerate BiPAP, and given high risk for aspiration.Patient was intubated and placed on mechanical ventilation. plan: Has been on MMV for the last 24 hours, start spontaneous breathing trial, ext ubation will be difficult given his poor cognitive status, will attempt to extubate later on this afternoon with anesthesia as backup, if he is reintubated he will likely require a trach, will reach out to patient's public employee relations administrator Sedation trial, weaning trial Precedex, propofol for to minimal effective for appropriate sedation, currently off Monitor for sinus bradycardia Ativan for as needed anxiety Continue Keppra for history of seizures Finished extended course of remdesivir, given his worsening respiratory status Decadron 6 mg IV push daily He has also received 1 dose of tocilizumab 05/23/2021, possible second dose based on clinical progress Vitamin C, zinc, vitamin D Continue broad-spectrum antibiotic therapy vancomycin, Zosyn Maintain MAP in the 65, currently off Levophed Continue to monitor inflammatory markers (ESR CRP D-dimer ferritin ) Blood Culture : So far negative MRSA PCR negative Sputum culture pending Continue to monitor ABG On full dose Lovenox Hemoglobin 13.3, iron studies, Hemoccult stool, Protonix 40 twice daily Monitor intake output: Avoid volume overload (current intake output which is charted is not correct as the patient is incontinent and Lamb was placed later) +3 L, 40 mg IV Lasix with metolazone, potassium replacement Hyponatremia, serum sodium 143 Tube feeds through PEG tube, start 10 cc, increase by 10 cc every 8 hours to goal of 35 cc, free water flushes to 50 cc every 6 hours Pulmocare Transaminitis secondary COVID-19 had fixed upward gaze, head CT was ordered, no evidence of intracranial hemorrhage or mass-effect, 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 Status: Acute (4) Pulmonary embolism: Lovenox every 12 hours. I do not believe he is able to take his Eliquis p.o. currently. Status: Acute Qualifiers: Acute cor pulmonale presence: without acute cor pulmonale Chronicity: acute Pulmonary embolism type: unspecified Qualified Code(s): I26.99 - Other pulmonary embolism without acute cor pulmonale (5) Thrombocytopenia: Continue to monitor closely Status: Acute (6) Dehydration: Hydration overnight Status: Acute (7) Transaminitis: May be secondary to COVID-19. Recheck in the morning Status: Acute (8) Developmental delay, profound: Patient with baseline profound developmental delay, nonverbal Status: Acute (9) Sepsis: Status: Acute Qualifiers: Sepsis type: sepsis due to unspecified organism Sepsis acute organ dysfunction status: unspecified Qualified Code(s): A41.9 - Sepsis, unspecified organism Additional A&P Information Full code Lovenox will suffice for DVT prophylaxis Attestations Medical Necessity Statement*: Patient requires hospitalization for acute r espiratory failure secondary COVID-19 Coding Level of Care Code Acute Manager In Training for [facility] Diagnoses Respiratory failure with hypoxia J96.01 Chronicity: acute Pneumonia due to COVID-19 virus U07.1; J12.82 Hypernatremia E87.0 Pulmonary embolism I26.99 Acute cor pulmonale presence: without acute cor pulmonale Chronicity: acute Pulmonary embolism type: unspecified Thrombocytopenia D69.6 Dehydration E86.0 Transaminitis R74.01 Developmental delay, profound R62.50 Sepsis A41.9 Sepsis type: sepsis due to unspecified organism Sepsis acute organ dysfunction status: unspecified
[2021-05-30] MEDS: dexamethasone 4 mg/mL INJ 6 MG IVP (14:15)
--- NOTE | 2021-05-30 14:44 | PC.RESP ---
extubated pt extubated and placed on hhf, 45Lpm 50%fio2. Dr spear at bedside
[2021-05-30 18:59] LABS: Glucose Point of Care 148 mg/dL (70-110)
[2021-05-31] VITALS (32 sets, daily range): BP systolic 88–131; BP diastolic 59–90; PULSE 83–114; RESP 7–30; TEMP 36.1–36.8; O2SAT 88–96
[2021-05-31] MEDS: ipratropium-albuterol 3 mL Neb INHALATION ×4 (02:23→20:14)
[2021-05-31] MEDS: enoxaparin 80 mg/0.8 mL Syringe SUBCUT (03:05)
[2021-05-31] MEDS: piperacillin-tazobactam 3.375 GM in sodium chloride 0.9% (plus) 50 ML IV (03:05)
[2021-05-31] MEDS: LORazepam 2 mg/mL INJ 1 mL IVP (04:51)
[2021-05-31] MEDS: acetaminophen 325 mg Tablet 650 MG PO (04:51)
[2021-05-31 05:23] LABS: Basophils % 0.2 %; Eosinophils % 0.2 %; Hematocrit 45.1 % (42.0-52.0); Hemoglobin 14.5 g/dL (11.7-16.6); Lymphocytes # 1.2 10^3/uL (0.8-4.8); Lymphocytes % 10.1 %; Mean Corpuscular HGB Conc 32.2 g/dL (30.0-36.0); Mean Corpuscular Hemoglobin 29.8 pg (28.0-34.0); Mean Corpuscular Volume 92.8 fL (80-94); Mean Platelet Volume 12.3 fL (7.4-10.4); Monocytes # 0.7 10^3/uL (0.2-0.9); Monocytes % 5.5 %; Neutrophils # 9.98 10^3/uL (1.8-7.7); Neutrophils % 82.9 %; Nucleated Red Blood Cells % 0 %; Platelet Count 221 10^3/cmm (130-400); Red Blood Count 4.86 10^6/uL (4.1-5.3); Red Cell Distribution Width 14.4 % (12.1-15.1); White Blood Count 12.1 10^3/uL (4.0-10.0)
[2021-05-31 05:37] LABS: ABG PCO2 41.3 mmHg (35-45); ABG PH Result 7.55 (7.35-7.45); Base Excess ABG 12.2 mmol/L (-2.0-2.0); Blood Gas Allen Test Pos; Blood Gas Sample Site Radial, left; Blood Gas Sample Type Arterial; PO2 ABG 63.6 mmHg (80.0-100.0)
[2021-05-31 05:44] LABS: Oxygen Device HHFNC
[2021-05-31 05:48] LABS: NT Pro B Type Natriuretic Pept 249 pg/mL (0-125); Procalcitonin 0.16 ng/mL (0-0.5)
--- NOTE | 2021-05-31 05:59 | PC.NURSE ---
Pt becoming increasingly agitated. PO Tylenol given via peg tube. PRN ativan given via IVP. Pt has calmed a bit, but is still restless and wiggling in bed.
[2021-05-31 06:03] LABS: Alanine Aminotransferase 62 U/L (0-41); Albumin Level 3.2 g/dL (3.5-5.2); Alkaline Phosphatase 71 IU/L (40-130); Anion Gap 18.3 (5-19); Aspartate Amino Transferase 33 U/L (0-40); Blood Urea Nitrogen 26 mg/dL (8-23); Calcium 8.1 mg/dL (8.5-10.5); Carbon Dioxide 33 mmol/L (22-29); Chloride 94 mmol/L (98-107); Globulin 2.8 g/dL (1.3-4.6); Glomerular Filtration Rate 97.3 mL/min (90-130); Glucose 94 mg/dL (65-115); Magnesium 2.3 mg/dL (1.7-2.3); Osmolality Calculated 299 mOsm/kg (285-295); Phosphorus 2.9 mg/dL (2.5-4.5); Potassium 3.3 mmol/L (3.5-5.1); Sodium 142 mmol/L (136-145); Total Bilirubin 0.7 mg/dL (0.15-1.2)
--- NOTE | 2021-05-31 07:00 | XRR_ITS ---
PROCEDURE INFORMATION: Exam: XR Chest Exam date and time: 05/31/2021 7:00 AM Age: 66 years old Clinical indication: Condition or disease; Other: Covid followup; Patient HX: Covid follow up; PT is also cerebral palsy-unable to answer questions; Additional info: SOB TECHNIQUE: Imaging protocol: XR of the chest. Views: 1 view. COMPARISON: CR (CHEST, ) 05/30/2021 5:50 AM FINDINGS: Tubes, catheters and devices: Endotracheal tube removed. Right IJ line appears unchanged Lungs: There are again diffuse interstitial infiltrates and ground-glass opacity without significant change. No dense consolidation. Pleural spaces: No visible pleural effusion or pneumothorax. Heart/Mediastinum: Unremarkable. No cardiomegaly. Bones/joints: No acute bony findings. XR/XR chest 1V portable [id number] IMPRESSION: 1. Endotracheal tube has been removed. 2. No significant change diffuse interstitial infiltrates and ground-glass opacities.
[2021-05-31 08:47] LABS: Glucose Point of Care 91 mg/dL (70-110)
[2021-05-31] MEDS: FUROsemide 10 mg/mL SDV 4mL 40 MG IVP (08:54)
[2021-05-31] MEDS: doxycycline 100 mg Tablet PEG-TUBE ×2 (08:54→17:08)
[2021-05-31] MEDS: pantoprazole DR 40 mg Tablet PO ×2 (08:54→17:09)
[2021-05-31] MEDS: metOLazone 5 MG Tablet 10 MG PO (08:54)
[2021-05-31] MEDS: ascorbic acid 500 mg Tablet 1000 MG PEG-TUBE ×2 (08:54→17:09)
[2021-05-31] MEDS: zinc gluconate 50 mg Tablet PO (08:55)
[2021-05-31] MEDS: cholecalciferol (vitamin D3) 1,000 unit Tablet 1000 UNIT PO (08:55)
[2021-05-31] MEDS: lidocaine 1% 5 ML in potassium chloride premix 100 ML 25 ML IV (08:56)
--- NOTE | 2021-05-31 12:33 | P.PN_ITS ---
Subjective Subjective: Interval history: Yesterday morning, off sedation, patient had responses, was moving his head, did not follow commands, but was more responsive as he usually is, given his underlying cerebral palsy, he was successfully extubated to heated high flow, since then he has remained on heated high flow, afebrile overnight, normotensive, still is 4 L positive, no issues with PEG tube feedings, this morning he does not follow commands, but does respond to sternal rub does open his eyes, does move his head, does withdraw from pain, Vitals/I&O/Wt Last Vital Signs Temp 96.9 F L 05/31/21 09:00 Pulse 104 H 05/31/21 11:00 Resp 15 05/31/21 11:00 BP 120/80 05/31/21 11:00 Pulse Ox 95 05/31/21 11:00 05/30/21 05/31/21 05/31/21 22:59 06:59 14:59 Intake Total 315 / 707 1743 / 2450 115 / 115 Output Total 950 / 950 300 / 1250 Balance -635 / -243 1443 / 1200 115 / 115 Weight last 48 hrs Weight 62.777 kg Physical Exam Const: COMMON NORMALS: no acute distress ORIENTATION/CONSCIOUSNESS: not awake, not oriented to person, not oriented to place and not oriented to time Eye: COMMON NORMALS: Equal, round and reactive pupils present PUPIL: Yes Equal, round and reactive pupils present Resp: COMMON NORMALS: normal respiratory effort, No retractions, No use of accessory muscles and clear to auscultation bilaterally AUSCULTATION: clear to auscultation bilaterally Cardio: COMMON NORMALS: regular rate, regular rhythm, S1 normal heart sound present and S2 normal heart sound present RATE: regular rate RHYTHM: regular rhythm HEART SOUNDS: S1 normal heart sound present and S2 normal heart sound present GI: COMMON NORMALS: Normal to inspection, nondistended, normoactive bowel sounds present and Soft to palpation PALPATION: Yes Soft to palpation OTHER: PEG tube in place, clean and dry Extremity: NARRATIVE EXTREMITY EXAM: 1+ pitting edema OTHER: Flexion contracture of bilateral upper extremities Extensor posturing bilateral lower extremities No pitting edema Neuro: SENSORIUM/ORIENTATION: No oriented to person, No oriented to place and No oriented to time Urinary Catheter Management^: Lamb: Cath Placed During This Visit: yes Reason for Continuing Indwelling Catheter: Accurate Measurement of Urinary Output in Critically Ill Patients Urinary Catheter Date of Insertion: 05/23/21 Urinary Catheter Time of Insertion: 14:48 Data : 05/31/21 04:30 05/31/21 04:30 Micro: Microbiology 05/29/21 00:10 Occult Blood (FIT) - Final Stool Routine Collection A&P Assessment and plan (1) Respiratory failure with hypoxia: Acute Hypoxic respiratory failure secondary to Covid pneumonia, Secondary bacterial pneumonia, pulmonary embolism, sepsis According to patient's caregiver at [facility], at baseline he is a quadrip legic, history of low palsy, developmental delay, he needs assistance for feeding, he can smile at times, can track objects, does not follow commands Patient's public district administrator is Starr Hobbs [phone] or Buster CT angio chest:PE protcl: Very small, nonocclusive age-indeterminate emboli in the proximal upper lobe pulmonary arteries and distal LEFT lower lobe pulmonary artery. Bilateral scattered pulmonary opacifications and probable reactive lymphadenopathy. Pneumonitis and pneumonia should be considered. Patient was recently discharged from hospital after receiving 4 days of remdesivir, as well as IV dexamethasone. Post readmission, he was placed on heated high flow oxygen through nasal cannula, due to worsening ABG as well as respiratory status, and his inability to tolerate BiPAP, and given high risk for aspiration.Patient was intubated and placed on mechanical ventilation. -Successfully extubated on 05/30/2021 to heated high flow plan: Continue heated high flow, wean oxygen as tolerated Aggressive pulmonary toilet Haldol for anxiety Continue Keppra for history of seizures Has finished remdesivir Decadron 6 mg IV push daily He has also received 1 dose of tocilizumab 05/23/2021, possible second dose tomorrow Vitamin C, zinc, vitamin D De-escalate antibiotic therapy to doxycycline Maintain MAP in the 65, c off pressors Continue to monitor inflammatory markers (ESR CRP D-dimer ferritin ) Blood Culture : So far negative MRSA PCR negative Sputum culture pending Continue to monitor ABG Switch to Eliquis Monitor intake output: Avoid volume overload (current intake output which is charted is not correct as the patient is incontinent and Lamb was placed later ) As 1+ pitting edema, will give 40 mg IV Lasix with metolazone, potassium placement DuoNebs Full code Eliquis x for DVT prophylaxis Disposition, working on placement to select Plan for today, working on placement to select, aggressive pulmonary toilet, speech therapy evaluation, PT OT Status: Acute Qualifiers: Chronicity: acute Qualified Code(s): J96.01 - Acute respiratory failure with hypoxia (2) Pneumonia due to COVID-19 virus: Status: Acute (3) Hypernatremia: Status: Acute (4) Pulmonary embolism: Status: Acute Qualifiers: Acute cor pulmonale presence: without acute cor pulmonale Chronicity: acute Pulmonary embolism type: unspecified Qualified Code(s): I26.99 - Other pulmonary embolism without acute cor pulmonale (5) Thrombocytopenia: Continue to monitor closely Status: Acute (6) Dehydration: Hydration overnight Status: Acute (7) Transaminitis: Status: Acute (8) Developmental delay, profound: Patient with baseline profound developmental delay, nonverbal Status: Acute (9) Sepsis: Status: Acute Qualifiers: Sepsis type: sepsis due to unspecified organism Sepsis acute organ dysfunction status: unspecified Qualified Code(s): A41.9 - Sepsis, unspecified organism Attestations Medical Necessity Statement*: Patient requires hospitalization for acute respiratory failure secondary COVID-19 Coding Level of Care Code Acute Newspaper Carrier for [facility] Diagnoses Respiratory failure with hypoxia J96.01 Chronicity: acute Pneumonia due to COVID-19 virus U07.1; J12.82 Hypernatremia E87.0 Pulmonary embolism I26.99 Acute cor pulmonale presence: without acute cor pulmonale Chronicity: acute Pulmonary embolism type: unspecified Thrombocytopenia D69.6 Dehydration E86.0 Transaminitis R74.01 Developmental delay, profound R62.50 Sepsis A41.9 Sepsis type: sepsis due to unspecified organism Sepsis acute organ dysfunction status: unspecified
[2021-05-31 13:14] LABS: Glucose Point of Care 122 mg/dL (70-110)
[2021-05-31] MEDS: polyethylene glycol 3350 Pkt 17 gm PO (13:29)
[2021-05-31] MEDS: docusate sodium 100 mg Capsule PO (13:29)
[2021-05-31] MEDS: lidocaine 1% 5 ML in potassium chloride premix 100 ML 50 ML IV (13:30)
[2021-05-31] MEDS: dexamethasone 4 mg Tablet 6 MG PEG-TUBE (15:47)
[2021-05-31] MEDS: apixaban 5 mg Tablet 10 MG PEG-TUBE (15:47)
[2021-05-31] MEDS: levETIRAcetam 500 mg Tablet 1500 MG PEG-TUBE (15:47)
[2021-05-31 17:11] LABS: Glucose Point of Care 125 mg/dL (70-110)
--- NOTE | 2021-05-31 17:37 | PC.NURSE ---
Miralax and colace held. Patient had large, loose bowel movement this shift. Dr. Dao aware
--- NOTE | 2021-05-31 18:17 | PC.PT ---
I spoke with the nurse today and she states that nursing is doing passive ROM x 4 extremities. With client's history of needing full assist at his [facility] , we determined he is not really appropriate for physical therapy at this time.
[2021-05-31] MEDS: atorvastatin 40 mg Tablet 20 MG PO (20:58)
[2021-06-01] VITALS (43 sets, daily range): BP systolic 91–132; BP diastolic 58–86; PULSE 82–118; RESP 4–31; TEMP 36.1–36.8; O2SAT 86–98
[2021-06-01] MEDS: ipratropium-albuterol 3 mL Neb INHALATION ×4 (02:25→20:06)
[2021-06-01] MEDS: apixaban 5 mg Tablet 10 MG PEG-TUBE ×2 (02:30→15:45)
[2021-06-01] MEDS: levETIRAcetam 500 mg Tablet 1500 MG PEG-TUBE ×2 (02:31→15:46)
--- NOTE | 2021-06-01 05:13 | PC.NURSE ---
O2 sat 86, RT notified
[2021-06-01 05:17] LABS: Basophils % 0.3 %; Eosinophils % 0.2 %; Hemoglobin 15.6 g/dL (11.7-16.6); Lymphocytes # 1.1 10^3/uL (0.8-4.8); Lymphocytes % 8.9 %; Mean Corpuscular HGB Conc 31.8 g/dL (30.0-36.0); Mean Corpuscular Hemoglobin 29.8 pg (28.0-34.0); Mean Corpuscular Volume 93.7 fL (80-94); Mean Platelet Volume 12.3 fL (7.4-10.4); Monocytes # 0.6 10^3/uL (0.2-0.9); Monocytes % 5.3 %; Neutrophils # 10.13 10^3/uL (1.8-7.7); Neutrophils % 84.5 %; Nucleated Red Blood Cells % 0 %; Platelet Count 217 10^3/cmm (130-400); Red Blood Count 5.23 10^6/uL (4.1-5.3); Red Cell Distribution Width 14.6 % (12.1-15.1)
[2021-06-01 05:36] LABS: Alanine Aminotransferase 62 U/L (0-41); Albumin Level 3.3 g/dL (3.5-5.2); Alkaline Phosphatase 83 IU/L (40-130); Anion Gap 17.9 (5-19); Aspartate Amino Transferase 29 U/L (0-40); Blood Urea Nitrogen 30 mg/dL (8-23); Calcium 8.8 mg/dL (8.5-10.5); Carbon Dioxide 29 mmol/L (22-29); Chloride 98 mmol/L (98-107); Globulin 2.9 g/dL (1.3-4.6); Glomerular Filtration Rate 97.3 mL/min (90-130); Glucose 124 mg/dL (65-115); Magnesium 2.2 mg/dL (1.7-2.3); Osmolality Calculated 300 mOsm/kg (285-295); Phosphorus 2.9 mg/dL (2.5-4.5); Potassium 3.9 mmol/L (3.5-5.1); Sodium 141 mmol/L (136-145); Total Bilirubin 0.8 mg/dL (0.15-1.2); Total Protein 6.2 g/dL (6.6-8.7)
[2021-06-01 05:45] LABS: NT Pro B Type Natriuretic Pept 257 pg/mL (0-125); Procalcitonin 0.16 ng/mL (0-0.5)
--- NOTE | 2021-06-01 07:00 | XRR_ITS ---
PROCEDURE INFORMATION: Exam: XR Chest Exam date and time: 06/01/2021 7:00 AM Age: 66 years old Clinical indication: Shortness of breath; Patient HX: Follow up covid pneumonia, high flow oxygen; Additional info: SOB TECHNIQUE: Imaging protocol: XR of the chest. Views: 1 view. COMPARISON: CR XR chest 1V portable [id number] 05/31/2021 7:28 AM FINDINGS: Tubes, catheters and devices: Right IJ approach tunneled central line is in satisfactory position, with distal tip in the RA. Lungs: Persistent bilateral airspace opacities, right greater than left. No large pleural effusion or pneumothorax. Pleural spaces: See Lungs finding. Heart/Mediastinum: Stable cardiomediastinal silhouette. Bones/joints: No acute osseous injury identified. XR/XR chest 1V portable [id number] IMPRESSION: Persistent bilateral airspace opacities.
[2021-06-01 08:11] LABS: Glucose Point of Care 101 mg/dL (70-110)
[2021-06-01] MEDS: PARoxetine 20 mg Tablet 10 MG PO (08:57)
[2021-06-01] MEDS: ascorbic acid 500 mg Tablet 1000 MG PEG-TUBE ×2 (09:07→18:43)
[2021-06-01] MEDS: cholecalciferol (vitamin D3) 1,000 unit Tablet 1000 UNIT PO (09:07)
[2021-06-01] MEDS: dexamethasone 4 mg Tablet 6 MG PEG-TUBE (09:07)
[2021-06-01] MEDS: doxycycline 100 mg Tablet PEG-TUBE ×2 (09:08→18:43)
[2021-06-01] MEDS: pantoprazole DR 40 mg Tablet PO ×2 (09:08→18:43)
[2021-06-01] MEDS: docusate sodium 100 mg Capsule PO ×2 (09:08→18:43)
[2021-06-01] MEDS: polyethylene glycol 3350 Pkt 17 gm PO ×2 (09:08→18:43)
[2021-06-01] MEDS: zinc gluconate 50 mg Tablet PO (09:08)
--- NOTE | 2021-06-01 09:39 | PC.CHAP ---
Pastoral Care Encounter/Spiritual Assessment Type of Contact [] Declined aerial lineman visit [] Patient/Family/Request visit [] Outpatient visit [] Follow-up visit [] Physician referral [] Code/Alert [x] Routine visit [] Staff referral [] Actively dying [] Patient sleeping [] Family support [] [] Out of room [] Palliative care [] [x] Receiving care in room [] Pre-surgical visit [] Trauma [] Long length of stay [x] ICU visit [x] Other:isolated Relational/Emotional Strength [] Patient feels connected with others/family/visitors/staff [] Distress [] Loneliness/isolation [] Abandonment Spirituality of Patient [] Person of Emma [] Attends Taoism of their Emma [] Believes in Prayer [] Reads Bible or Hoahaoism materials [] There are Spiritual issues to be addressed Nondestructive Tester Interventions [x] Prayer [] Active listening [] Non-anxious presence [] Spiritual/emotional support [] Crisis/trauma care [] Spiritual counseling [] Bereavement support [] Provided bereavement packet [] Provided Bible/devotional materials [] Provided toy/stuffed animal, coloring book to patient or family member [] Provided Communion [] Anointing/[place] [] Salvation [x] Completed spiritual assessment [] Other: Impact on Illness or Injury [] Angry [] Fearful [] Anxious [] Often cries [] Exhaustion [] Unable to work [] Unable to attend jehovah's witness [] Unable to walk/stand [] Unable to read [] Unable to drive [] Unable to eat/drink [] Unable to sleep [] Unable to be with family [] Patient intubated [] Other: Summary Time spent with patient
--- NOTE | 2021-06-01 11:25 | PC.NUTR ---
Tube feeding follow-up: Pt extubated 05/30/21 and no longer receiving propofol--estimated nutritional needs recalculated. Tube feeding ordered 05/28/21 but still has not reached goal. 11% wt loss noted since 05/28/21. Pulmocare 1.5 currently running at 30 ml/hr and well tolerated per nursing. Recommend to increase to 40 ml/hr JOSE F, then to goal of 55 ml/hr 8 hours later as tolerated. Continue with 250 ml H20 flushes q 6 hours. TF at goal with flushes to provide 1980 kcal, 83 g protein, and 2036 ml H2O. Recommend to limit stopping of TF as much as much as safely possible to improve kcal/protein provision and prevent further weight loss. See RD assessment for further details.
[2021-06-01] MEDS: sodium chloride 0.9% 1,000 ML 75 ML IV (11:30)
[2021-06-01 13:06] LABS: Glucose Point of Care 114 mg/dL (70-110)
--- NOTE | 2021-06-01 13:10 | P.PN_ITS ---
Subjective Subjective: Interval history: Patient was seen this morning, he is more responsive, he shakes his head, he he falls me a bit around the room, but does not really respond to questioning, he remains on heated high flow, his urine output has decreased to 300 cc last shift, remains normotensive, afebrile Vitals/I&O/Wt Last Vital Signs Temp 96.9 F L 06/01/21 08:00 Pulse 90 06/01/21 11:47 Resp 20 H 06/01/21 11:47 BP 101/79 06/01/21 09:00 Pulse Ox 92 06/01/21 11:47 05/31/21 06/01/21 06/01/21 22:59 06:59 14:59 Intake Total 105 / 450 180 / 180 Output Total 300 / 1300 150 / 1450 100 / 100 Balance -195 / -850 -150 / -1000 80 / 80 Weight last 48 hrs Weight 62.596 kg Physical Exam Const: COMMON NORMALS: no acute distress ORIENTATION/CONSCIOUSNESS: Yes awake; not oriented to person, not oriented to place and not oriented to time Eye: COMMON NORMALS: Equal, round and reactive pupils present PUPIL: Yes Equal, round and reactive pupils present Resp: COMMON NORMALS: normal respiratory effort, No retractions, No use of accessory muscles and clear to auscultation bilaterally AUSCULTATION: clear to auscultation bilaterally Cardio: COMMON NORMALS: regular rate, regular rhythm, S1 normal heart sound present and S2 normal heart sound present RATE: regular rate RHYTHM: regular rhythm HEART SOUNDS: S1 normal heart sound present and S2 normal heart sound present GI: COMMON NORMALS: Normal to inspection, nondistended, normoactive bowel sounds present and Soft to palpation PALPATION: Yes Soft to palpation OTHER: PEG tube in place, clean and dry Extremity: COMMON NORMALS: no pedal edema NARRATIVE EXTREMITY EXAM: 1+ pitting edema OTHER: Flexion contracture of bilateral upper extremities Extensor posturing bilateral lower extremities No pitting edema Neuro: SENSORIUM/ORIENTATION: No oriented to person, No oriented to place and No oriented to time Urinary Catheter Management^: Lamb: Cath Placed During This Visit: yes Reason for Continuing Indwelling Catheter: Accurate Measurement of Urinary Ou tput in Critically Ill Patients Urinary Catheter Date of Insertion: 05/23/21 Urinary Catheter Time of Insertion: 14:48 Data : 06/01/21 04:55 06/01/21 04:55 A&P Assessment and plan (1) Respiratory failure with hypoxia: Acute Hypoxic respiratory failure secondary to Covid pneumonia, Secondary bacterial pneumonia, pulmonary embolism, sepsis According to patient's caregiver at [facility], at baseline he is a quadriplegic, history of low palsy, developmental delay, he needs assistance for feeding, he can smile at times, can track objects, does not follow commands Patient's public sharepoint administrator is Starr Hobbs [phone] or Buster CT angio chest:PE protcl: Very small, nonocclusive age-indeterminate emboli in the proximal upper lobe pulmonary arteries and distal LEFT lower lobe pulmonary artery. Bilateral scattered pulmonary opacifications and probable reactive lymphadenopathy. Pneumonitis and pneumonia should be considered. Patient was recently discharged from hospital after receiving 4 days of remdesivir, as well as IV dexamethasone. Post readmission, he was placed on heated high flow oxygen through nasal cannula, due to worsening ABG as well as respiratory status, and his inability to tolerate BiPAP, and given high risk for aspiration.Patient was intubated and placed on mechanical ventilation. -Successfully extubated on 05/30/2021 to heated high flow, remains on heated high flow plan: Continue heated high flow, wean oxygen as tolerated Aggressive pulmonary toilet Haldol for anxiety Continue Keppra for history of seizures Has finished remdesivir Decadron 6 mg IV push daily He has also received 1 dose of tocilizumab 05/23/2021 Vitamin C, zinc, vitamin D Has finished over 7 days of broad-spectrum antibiotic therapy, de-escalate antibiotic therapy to doxycycline Maintain MAP in the 65, off pressors Continue to monitor inflammatory markers (ESR CRP D-dimer ferritin ) Blood Culture : So far negative MRSA PCR negative Sputum culture pending Continue to monitor ABG On Eliquis for pulmonary emboli Monitor intake output: Avoid volume overload (current intake output which is charted is not correct as the patient is incontinent and Lamb was placed later ) Urine output has decreased to 300 cc, hold off on diuretic therapy, start gentle hydration at 75 cc an hour until 6 PM discontinue thereafter Tube feeds, increase to goal at 65 cc an hour DuoNebs Full code Eliquis for DVT prophylaxis Disposition, working on placement to select Plan for today, working on placement to select, aggressive pulmonary toilet, speech therapy evaluation, PT OT Status: Acute Qualifiers: Chronicity: acute Qualified Code(s): J96.01 - Acute respiratory failure with hypoxia (2) Pneumonia due to COVID-19 virus: Status: Acute (3) Hypernatremia: Status: Acute (4) Pulmonary embolism: Status: Acute Qualifiers: Acute cor pulmonale presence: without acute cor pulmonale Chronicity: acute Pulmonary embolism type: unspecified Qualified Code(s): I26.99 - Other pulmonary embolism without acute cor pulmonale (5) Thrombocytopenia: Continue to monitor closely Status: Acute (6) Dehydration: Hydration overnight Status: Acute (7) Transaminitis: Status: Acute (8) Developmental delay, profound: Patient with baseline profound developmental delay, nonverbal Status: Acute (9) Sepsis: Status: Acute Qualifiers: Sepsis type: sepsis due to unspecified organism Sepsis acute organ dysfunction status: unspecified Qualified Code(s): A41.9 - Sepsis, unspecified organism Additional A&P Information Full code Lovenox will suffice for DVT prophylaxis Attestations Medical Necessity Statement*: Patient requires hospitalization for acute respiratory failure with hypoxia secondary COVID-19, pulmonary by Coding Level of Care Code Acute Senior Linux Systems Engineer for [facility] Diagnoses Respiratory failure with hypoxia J96.01 Chronicity: acute Pneumonia due to COVID-19 virus U07.1; J12.82 Hypernatremia E87.0 Pulmonary embolism I26.99 Acute cor pulmonale presence: without acute cor pulmonale Chronicity: acute Pulmonary embolism type: unspecified Thrombocytopenia D69.6 Dehydration E86.0 Transaminitis R74.01 Developmental delay, profound R62.50 Sepsis A41.9 Sepsis type: sepsis due to unspecified organism Sepsis acute organ dysfunction status: unspecified
--- NOTE | 2021-06-01 14:13 | PC.OT ---
OT NOTE: OT EVALUATION ORDERS RECEIVED. OT SCREEN COMPLETED. PER CHART AND PER NURSING, PATIENT IS TOTAL ASSIST AT [facility] FOR ALL ADL/MRADL. NURSING IS REPOSITIONING AND PERFORMIN PROM FREQUENTLY. NO FURTHER SKILLED OT NEEDS REQUIRED.
[2021-06-01 18:44] LABS: Glucose Point of Care 136 mg/dL (70-110)
[2021-06-01] MEDS: atorvastatin 40 mg Tablet 20 MG PO (20:17)
[2021-06-02] VITALS (36 sets, daily range): BP systolic 91–127; BP diastolic 55–91; PULSE 89–112; RESP 5–33; TEMP 37.2; O2SAT 84–95
[2021-06-02] MEDS: ipratropium-albuterol 3 mL Neb INHALATION ×4 (02:19→20:17)
[2021-06-02] MEDS: apixaban 5 mg Tablet 10 MG PEG-TUBE ×2 (03:29→14:17)
[2021-06-02] MEDS: levETIRAcetam 500 mg Tablet 1500 MG PEG-TUBE ×2 (03:29→14:17)
[2021-06-02 05:13] LABS: Basophils # 0.1 10^3/uL (0.0-0.1); Basophils % 0.4 %; Eosinophils # 0.1 10^3/uL (0.0-0.8); Eosinophils % 0.7 %; Hematocrit 46.3 % (42.0-52.0); Hemoglobin 14.8 g/dL (11.7-16.6); Lymphocytes # 1.6 10^3/uL (0.8-4.8); Lymphocytes % 11.9 %; Mean Corpuscular Hemoglobin 29.8 pg (28.0-34.0); Mean Corpuscular Volume 93.3 fL (80-94); Mean Platelet Volume 12.4 fL (7.4-10.4); Monocytes # 0.8 10^3/uL (0.2-0.9); Monocytes % 6.2 %; Neutrophils # 10.62 10^3/uL (1.8-7.7); Neutrophils % 79.7 %; Nucleated Red Blood Cells % 0 %; Platelet Count 204 10^3/cmm (130-400); Red Blood Count 4.96 10^6/uL (4.1-5.3); Red Cell Distribution Width 14.5 % (12.1-15.1); White Blood Count 13.3 10^3/uL (4.0-10.0)
[2021-06-02 05:30] LABS: Alanine Aminotransferase 53 U/L (0-41); Albumin Level 3.3 g/dL (3.5-5.2); Alkaline Phosphatase 76 IU/L (40-130); Anion Gap 12.7 (5-19); Aspartate Amino Transferase 30 U/L (0-40); Blood Urea Nitrogen 34 mg/dL (8-23); Calcium 8.3 mg/dL (8.5-10.5); Carbon Dioxide 34 mmol/L (22-29); Chloride 99 mmol/L (98-107); Globulin 2.6 g/dL (1.3-4.6); Glomerular Filtration Rate 113.5 mL/min (90-130); Glucose 96 mg/dL (65-115); Magnesium 2.4 mg/dL (1.7-2.3); Osmolality Calculated 301 mOsm/kg (285-295); Phosphorus 3.2 mg/dL (2.5-4.5); Potassium 3.7 mmol/L (3.5-5.1); Sodium 142 mmol/L (136-145); Total Bilirubin 0.6 mg/dL (0.15-1.2); Total Protein 5.9 g/dL (6.6-8.7)
[2021-06-02 05:43] LABS: NT Pro B Type Natriuretic Pept 205 pg/mL (0-125); Procalcitonin 0.14 ng/mL (0-0.5)
--- NOTE | 2021-06-02 05:50 | PC.NURSE ---
shift summary tolerating HHF settings, patient moving around more, still not responding but opens eyes to verbal, tube feedings increased to goal of 55 ml/hr, very large loose BM x1, supine 30 degrees at this time
[2021-06-02 07:40] LABS: Glucose Point of Care 121 mg/dL (70-110)
[2021-06-02] MEDS: polyethylene glycol 3350 Pkt 17 gm PO ×2 (08:39→17:04)
[2021-06-02] MEDS: zinc gluconate 50 mg Tablet PO (08:40)
[2021-06-02] MEDS: pantoprazole DR 40 mg Tablet PO ×2 (08:40→17:04)
[2021-06-02] MEDS: PARoxetine 20 mg Tablet 10 MG PO (08:40)
[2021-06-02] MEDS: ascorbic acid 500 mg Tablet 1000 MG PEG-TUBE ×2 (08:40→17:03)
[2021-06-02] MEDS: doxycycline 100 mg Tablet PEG-TUBE ×2 (08:40→17:04)
[2021-06-02] MEDS: cholecalciferol (vitamin D3) 1,000 unit Tablet 1000 UNIT PO (08:40)
[2021-06-02] MEDS: dexamethasone 4 mg Tablet 6 MG PEG-TUBE (08:40)
[2021-06-02] MEDS: docusate sodium 100 mg Capsule PO ×2 (08:41→17:04)
--- NOTE | 2021-06-02 10:17 | PC.CHAP ---
Pastoral Care Encounter/Spiritual Assessment Type of Contact [] Declined effervescent salts compounder visit [] Patient/Family/Request visit [] Outpatient visit [] Follow-up visit [] Physician referral [] Code/Alert [x] Routine visit [] Staff referral [] Actively dying [x] Patient sleeping [] Family support [] [] Out of room [] Palliative care [] [] Receiving care in room [] Pre-surgical visit [] Trauma [] Long length of stay [] ICU visit [x] Other: oxygen .. Relational/Emotional Strength [] Patient feels connected with others/family/visitors/staff [] Distress [] Loneliness/isolation [] Abandonment Spirituality of Patient [] Person of Emma [] Attends Latter-Day of their Emma [] Believes in Prayer [] Reads Bible or Oriental Orthodox materials [] There are Spiritual issues to be addressed Operations Welder Interventions [x] Prayer [] Active listening [] Non-anxious presence [] Spiritual/emotional support [] Crisis/trauma care [] Spiritual counseling [] Bereavement support [] Provided bereavement packet [] Provided Bible/devotional materials [] Provided toy/stuffed animal, coloring book to patient or family member [] Provided Communion [] Anointing/[place] [] Salvation [x] Completed spiritual assessment [] Other: Impact on Illness or Injury [] Angry [] Fearful [] Anxious [] Often cries [] Exhaustion [] Unable to work [] Unable to attend advent [] Unable to walk/stand [] Unable to read [] Unable to drive [] Unable to eat/drink [] Unable to sleep [] Unable to be with family [] Patient intubated [] Other: Summary Time spent with patient
[2021-06-02 11:02] LABS: Glucose Point of Care 138 mg/dL (70-110)
--- NOTE | 2021-06-02 15:48 | P.PN_ITS ---
Subjective Subjective: Interval history: Unchanged no new clinical events Medications: Reviewed: Yes Vitals/I&O/Wt Last Vital Signs Temp 98.9 F 06/02/21 16:00 Pulse 96 06/02/21 21:00 Resp 16 06/02/21 21:00 BP 100/66 06/02/21 21:00 Pulse Ox 93 06/02/21 21:00 06/02/21 06/02/21 06/02/21 06:59 14:59 22:59 Intake Total 120 / 1605 Output Total 250 / 850 450 / 450 Balance -130 / 755 -450 / -450 Weight last 48 hrs Weight 62.142 kg Weight 62.596 kg Physical Exam Narrative: EXAM NARRATIVE: Intubated, sedated, on sedation Const: COMMON NORMALS: no acute distress ORIENTATION/CONSCIOUSNESS: Yes awake; not oriented to person, not oriented to place and not oriented to time OTHER: Currently intubated, sedated HENMT: COMMON NORMALS: normocephalic and atraumatic HEAD & SCALP: normocephalic and atraumatic Eye: COMMON NORMALS: Equal, round and reactive pupils present PUPIL: Yes Equal, round and reactive pupils present OTHER: Pupils upwards going bilaterally Chest: COMMONS NORMALS: normal inspection of the chest Resp: COMMON NORMALS: normal respiratory effort, No retractions, No use of accessory muscles and clear to auscultation bilaterally AUSCULTATION: clear to auscultation bilaterally and diminished lung sounds (Diminished lung sounds in the lung shell) OTHER: Diminished air entry b/l ,coarse b/l breath sounds Cardio: COMMON NORMALS: regular rate, regular rhythm, S1 normal heart sound present, S2 normal heart sound present, No gallops present (Cardio), No murmurs present (Cardio), No rub (Cardio) and Peripheral pulses 2+ throughout RATE: regular rate RHYTHM: regular rhythm HEART SOUNDS: S1 normal heart sound present and S2 normal heart sound present PERIPHERAL PULSES: Peripheral pulses 2+ throughout GI: COMMON NORMALS: Normal to inspection, nondistended, normoactive bowel soun ds present, Soft to palpation, No hepatosplenomegaly present and no masses AUSCULTATION: Yes normoactive bowel sounds PALPATION: Yes Soft to palpation and Yes No hepatosplenomegaly present RECTAL EXAM: Yes deferred OTHER: PEG tube in place, clean and dry Extremity: COMMON NORMALS: no clubbing, cyanosis or edema and no pedal edema NARRATIVE EXTREMITY EXAM: 1+ pitting edema OTHER: Flexion contracture of bilateral upper extremities Extensor posturing bilateral lower extremities No pitting edema Neuro: SENSORIUM/ORIENTATION: No oriented to person, No oriented to place and No oriented to time Psych: COMMON NORMALS: mental status grossly normal Urinary Catheter Management^: Lamb: Cath Placed During This Visit: yes Reason for Continuing Indwelling Catheter: Accurate Measurement of Urinary Output in Critically Ill Patients Urinary Catheter Date of Insertion: 05/23/21 Urinary Catheter Time of Insertion: 14:48 Data : 06/02/21 04:50 06/02/21 04:50 A&P Assessment and plan (1) Respiratory failure with hypoxia: CT angio chest:PE protcl: Very small, nonocclusive age-indeterminate emboli in the proximal upper lobe pulmonary arteries and distal LEFT lower lobe pulmonary artery. Bilateral scattered pulmonary opacifications and probable reactive lymphadenopathy. Pneumonitis and pneumonia should be considered. Continue to wean HFNC S/p mechanical ventilation No change to current med regimen ABG / CXR in am Pulmonary hermelinda Has finished remdesivir Decadron 6 mg IV push daily He has also received 1 dose of tocilizumab 05/23/2021 Status: Acute Qualifiers: Chronicity: acute Qualified Code(s): J96.01 - Acute respiratory failure with hypoxia (2) Pneumonia due to COVID-19 virus: Status: Acute (3) Hypernatremia: Status: Acute (4) Pulmonary embolism: Status: Acute Qualifiers: Acute cor pulmonale presence: without acute cor pulmonale Chronicity: acute Pulmonary embolism type: unspecified Qualified Code(s): I26.99 - Other pulmonary embolism without acute cor pulmonale (5) Thrombocytopenia: Continue to monitor closely Status: Acute (6) Dehydration: Status: Acute (7) Transaminitis: Status: Acute (8) Developmental delay, profound: Patient with baseline profound developmental delay, nonverbal Status: Acute (9) Sepsis: Status: Acute Qualifiers: Sepsis type: sepsis due to unspecified organism Sepsis acute organ dysfunction status: unspecified Qualified Code(s): A41.9 - Sepsis, unspecified organism Additional A&P Information Seizure disorder Continue Keppra for history of seizures Pulmonary Embolism Continue eliquis FEN Tube feeds Full code Eliquis for DVT prophylaxis Disposition, working on placement to select Attestations Medical Necessity Statement*: Continue current hospitalization for management of respiratory failrue on HFNC Time Spent in Patient Care: Greater than 35 minutes (>than 50% of time spent in counselling and/or direct pt care on unit) . Critical Care Time: Critical Care Time (min): 45 Coding Level of Care Code Acute Manager Wastewater for [facility] Fwd Diagnoses Respiratory failure with hypoxia J96.01 Chronicity: acute Pneumonia due to COVID-19 virus U07.1; J12.82 Hypernatremia E87.0 Pulmonary embolism I26.99 Acute cor pulmonale presence: without acute cor pulmonale Chronicity: acute Pulmonary embolism type: unspecified Thrombocytopenia D69.6 Dehydration E86.0 Transaminitis R74.01 Developmental delay, profound R62.50 Sepsis A41.9 Sepsis type: sepsis due to unspecified organism Sepsis acute organ dysfunction status: unspecified
[2021-06-02 16:31] LABS: Glucose Point of Care 157 mg/dL (70-110)
--- NOTE | 2021-06-02 18:18 | PC.NURSE ---
Pt remains on HHF with a FiO2 of 50% and on 45L. Pt given a sponge bath with a gown change. Resting supine at a 30 degree angle watching tv. Pt receiving continuous tube feeding with flushed q6hr, see peg tube management documentation. Will continue to monitor.
[2021-06-02] MEDS: atorvastatin 40 mg Tablet 20 MG PO (20:27)
[2021-06-03] VITALS (47 sets, daily range): BP systolic 87–122; BP diastolic 50–84; PULSE 88–122; RESP 9–37; TEMP 36.7–37.7; O2SAT 85–98
[2021-06-03] MEDS: ipratropium-albuterol 3 mL Neb INHALATION ×2 (02:30→08:21)
[2021-06-03] MEDS: levETIRAcetam 500 mg Tablet 1500 MG PEG-TUBE ×2 (03:36→14:59)
[2021-06-03] MEDS: apixaban 5 mg Tablet 10 MG PEG-TUBE ×2 (03:36→14:58)
--- NOTE | 2021-06-03 05:06 | PC.NURSE ---
Large very loose watery stool, Dr. Banuelos approved order for rectal tube insertion to prevent further skin break down
--- NOTE | 2021-06-03 05:07 | PC.NURSE ---
patient not keeping HHFNC in, placed on 6L NC, tolerating at this time O2 sat 94
[2021-06-03 06:02] LABS: Basophils # 0.1 10^3/uL (0.0-0.1); Basophils % 0.4 %; Eosinophils # 0.1 10^3/uL (0.0-0.8); Eosinophils % 0.6 %; Hematocrit 44.8 % (42.0-52.0); Hemoglobin 14.3 g/dL (11.7-16.6); Lymphocytes # 1.6 10^3/uL (0.8-4.8); Lymphocytes % 10.1 %; Mean Corpuscular HGB Conc 31.9 g/dL (30.0-36.0); Mean Corpuscular Volume 93.9 fL (80-94); Mean Platelet Volume 12.8 fL (7.4-10.4); Monocytes % 6.1 %; Neutrophils # 13.22 10^3/uL (1.8-7.7); Neutrophils % 81.9 %; Nucleated Red Blood Cells % 0 %; Platelet Count 178 10^3/cmm (130-400); Red Blood Count 4.77 10^6/uL (4.1-5.3); Red Cell Distribution Width 14.5 % (12.1-15.1); White Blood Count 16.1 10^3/uL (4.0-10.0)
[2021-06-03 06:14] LABS: Alanine Aminotransferase 58 U/L (0-41); Albumin Level 3.2 g/dL (3.5-5.2); Alkaline Phosphatase 74 IU/L (40-130); Anion Gap 12.3 (5-19); Aspartate Amino Transferase 38 U/L (0-40); Blood Urea Nitrogen 33 mg/dL (8-23); Calcium 8.1 mg/dL (8.5-10.5); Carbon Dioxide 33 mmol/L (22-29); Chloride 97 mmol/L (98-107); Globulin 2.3 g/dL (1.3-4.6); Glomerular Filtration Rate 135.6 mL/min (90-130); Glucose 123 mg/dL (65-115); Magnesium 2.4 mg/dL (1.7-2.3); Osmolality Calculated 297 mOsm/kg (285-295); Potassium 3.3 mmol/L (3.5-5.1); Sodium 139 mmol/L (136-145); Total Bilirubin 0.5 mg/dL (0.15-1.2); Total Protein 5.5 g/dL (6.6-8.7)
[2021-06-03 06:21] LABS: Procalcitonin 0.16 ng/mL (0-0.5)
[2021-06-03 06:31] LABS: ABG PCO2 43.3 mmHg (35-45); ABG PH Result 7.51 (7.35-7.45); Base Excess ABG 10.6 mmol/L (-2.0-2.0); Blood Gas Allen Test Pos; Blood Gas Operator Identificat JB; Blood Gas Sample Site Radial, left; Blood Gas Sample Type Arterial; HCO3 ABG 34.9 mmol/L (22-26); Oxygen Device NC
--- NOTE | 2021-06-03 07:00 | XR_ITS ---
WS: [id number] Portable AP supine chest, 06/03/2021 Clinical Data: respiratory failure Comparison: Portable chest, 06/01/2021. Findings: The bilateral pulmonary opacities remain the same. The right internal jugular venous cathet er still ends in the superior vena cava. The heart size is normal. Monitor leads on the chest wall. XR/XR chest 1V portable [id number] Impression: No change in bilateral pulmonary opacities.
[2021-06-03 08:01] LABS: Glucose Point of Care 162 mg/dL (70-110)
[2021-06-03] MEDS: cholecalciferol (vitamin D3) 1,000 unit Tablet 1000 UNIT PO (08:19)
[2021-06-03] MEDS: PARoxetine 20 mg Tablet 10 MG PO (08:19)
[2021-06-03] MEDS: ascorbic acid 500 mg Tablet 1000 MG PEG-TUBE ×2 (08:19→17:20)
[2021-06-03] MEDS: pantoprazole DR 40 mg Tablet PO ×2 (08:20→17:21)
[2021-06-03] MEDS: docusate sodium 100 mg Capsule PO ×2 (08:20→17:21)
[2021-06-03] MEDS: dexamethasone 4 mg Tablet 6 MG PEG-TUBE (08:20)
[2021-06-03] MEDS: doxycycline 100 mg Tablet PEG-TUBE ×2 (08:20→17:21)
[2021-06-03] MEDS: polyethylene glycol 3350 Pkt 17 gm PO ×2 (08:21→17:21)
[2021-06-03] MEDS: zinc gluconate 50 mg Tablet PO (08:21)
[2021-06-03] MEDS: LORazepam 2 mg/mL INJ 1 mL 1 MG IVP (08:27)
--- NOTE | 2021-06-03 08:52 | PC.CHAP ---
Pastoral Care Encounter/Spiritual Assessment Type of Contact [] Declined custom seamstress visit [] Patient/Family/Request visit [] Outpatient visit [] Follow-up visit [] Physician referral [] Code/Alert [x] Routine visit [] Staff referral [] Actively dying [] Patient sleeping [] Family support [] [] Out of room [] Palliative care [] [x] Receiving care in room [] Pre-surgical visit [] Trauma [] Long length of stay [x] ICU visit [x] Other: on oxygen, isolated Relational/Emotional Strength [] Patient feels connected with others/family/visitors/staff [] Distress [] Loneliness/isolation [] Abandonment Spirituality of Patient [] Person of Emma [] Attends Amish of their Emma [] Believes in Prayer [] Reads Bible or Moravian materials [] There are Spiritual issues to be addressed Stationary Engineer Interventions [x] Prayer [] Active listening [] Non-anxious presence [] Spiritual/emotional support [] Crisis/trauma care [] Spiritual counseling [] Bereavement support [] Provided bereavement packet [] Provided Bible/devotional materials [] Provided toy/stuffed animal, coloring book to patient or family member [] Provided Communion [] Anointing/[place] [] Salvation [x] Completed spiritual assessment [] Other: Impact on Illness or Injury [] Angry [] Fearful [] Anxious [] Often cries [] Exhaustion [] Unable to work [] Unable to attend zoroastrian [] Unable to walk/stand [] Unable to read [] Unable to drive [] Unable to eat/drink [] Unable to sleep [] Unable to be with family [] Patient intubated [] Other: Summary Time spent with patient
[2021-06-03 12:45] LABS: Glucose Point of Care 145 mg/dL (70-110)
--- NOTE | 2021-06-03 16:50 | P.PN_ITS ---
Subjective Subjective: Interval history: Overnight patient was noted have increasing loose stools for which a rectal tube was placed. Otherwise respiratory status remains stable. Patient was weaned down to 4 L of O2 via nasal cannula. Medications: Reviewed: Yes Vitals/I&O/Wt Last Vital Signs Temp 98.2 F 06/03/21 12:30 Pulse 88 06/03/21 13:30 Resp 20 H 06/03/21 13:30 BP 104/76 06/03/21 13:30 Pulse Ox 93 06/03/21 13:30 06/03/21 06/03/21 06/03/21 06:59 14:59 22:59 Intake Total 3385 / 3385 Output Total 350 / 800 150 / 150 Balance -350 / -800 3235 / 3235 Weight last 48 hrs Weight 62.596 kg Weight 62.142 kg Physical Exam Narrative: EXAM NARRATIVE: Chronically ill-appearing. Const: COMMON NORMALS: no acute distress ORIENTATION/CONSCIOUSNESS: Yes awake; not oriented to person, not oriented to place and not oriented to time HENMT: COMMON NORMALS: normocephalic and atraumatic HEAD & SCALP: normocephalic and atraumatic Eye: COMMON NORMALS: Equal, round and reactive pupils present PUPIL: Yes Equal, round and reactive pupils present OTHER: Pupils upwards going bilaterally Chest: COMMONS NORMALS: normal inspection of the chest Resp: COMMON NORMALS: normal respiratory effort, No retractions, No use of accessory muscles and clear to auscultation bilaterally AUSCULTATION: clear to auscultation bilaterally and diminished lung sounds (Diminished lung sounds in the lung shell) OTHER: Diminished air entry b/l ,coarse b/l breath sounds Cardio: COMMON NORMALS: regular rate, regular rhythm, S1 normal heart sound present, S2 normal heart sound present, No gallops present (Cardio), No murmurs present (Cardio), No rub (Cardio) and Peripheral pulses 2+ throughout RATE: r egular rate RHYTHM: regular rhythm HEART SOUNDS: S1 normal heart sound present and S2 normal heart sound present PERIPHERAL PULSES: Peripheral pulses 2+ throughout GI: COMMON NORMALS: Normal to inspection, nondistended, normoactive bowel sounds present, Soft to palpation, No hepatosplenomegaly present and no masses AUSCULTATION: Yes normoactive bowel sounds PALPATION: Yes Soft to palpation and Yes No hepatosplenomegaly present RECTAL EXAM: Yes deferred OTHER: PEG tube in place, clean and dry Extremity: COMMON NORMALS: no clubbing, cyanosis or edema and no pedal edema NARRATIVE EXTREMITY EXAM: 1+ pitting edema OTHER: Flexion contracture of bilateral upper extremities Extensor posturing bilateral lower extremities No pitting edema Neuro: SENSORIUM/ORIENTATION: No oriented to person, No oriented to place and No oriented to time Psych: COMMON NORMALS: mental status grossly normal Urinary Catheter Management^: Lamb: Cath Placed During This Visit: yes Reason for Continuing Indwelling Catheter: Accurate Measurement of Urinary Output in Critically Ill Patients Urinary Catheter Date of Insertion: 05/23/21 Urinary Catheter Time of Insertion: 14:48 Data : 06/03/21 05:19 06/03/21 05:19 A&P Assessment and plan (1) Respiratory failure with hypoxia: CT angio chest:PE protcl: Very small, nonocclusive age-indeterminate emboli in the proximal upper lobe pulmonary arteries and distal LEFT lower lobe pulmonary artery. Bilateral scattered pulmonary opacifications and probable r eactive lymphadenopathy. Pneumonitis and pneumonia should be considered. Wean to 4 L via nasal cannula S/p mechanical ventilation No change to current med regimen ABG / CXR in am Pulmonary hermelinda Has finished remdesivir Decadron 6 mg IV push daily On doxycycline 100 mg b.i.d. He has also received 1 dose of tocilizumab 05/23/2021 Status: Acute Qualifiers: Chronicity: acute Qualified Code(s): J96.01 - Acute respiratory failure with hypoxia (2) Pneumonia due to COVID-19 virus: Management as noted above Status: Acute (3) Hypernatremia: Resolved Status: Acute (4) Pulmonary embolism: Eliquis 10 mg b.i.d. however will decrease this dose to 5 mg twice daily. Status: Acute Qualifiers: Acute cor pulmonale presence: without acute cor pulmonale Chronicity: a cute Pulmonary embolism type: unspecified Qualified Code(s): I26.99 - Other pulmonary embolism without acute cor pulmonale (5) Thrombocytopenia: Continue to monitor closely Status: Acute (6) Dehydration: Status: Acute (7) Transaminitis: Status: Acute (8) Developmental delay, profound: Patient with baseline profound developmental delay, nonverbal Status: Acute (9) Sepsis: Status: Acute Qualifiers: Sepsis type: sepsis due to unspecified organism Sepsis acute organ dysfunction status: unspecified Qualified Code(s): A41.9 - Sepsis, unspecified organism Additional A&P Information Seizure disorder Continue Keppra for history of seizures FEN Tube feeds Disposition Transferred to regular medical floor Full code Eliquis for DVT prophylaxis Disposition: Arranging placement to SNF, no longer qualifies for select. Attestations Medical Necessity Statement*: Require further hospitalizationFor management of respiratory failure, COVID-19 Time Spent in Patient Care: Greater than 35 minutes (>than 50% of time spent in counselling and/or direct pt care on unit) . Critical Care Time: Critical Care Time (min): 40 Coding Level of Care Code Acute Outboard System Operator for [facility] Fwd Diagnoses Respiratory failure with hypoxia J96.01 Chronicity: acute Pneumonia due to COVID-19 virus U07.1; J12.82 Hypernatremia E87.0 Pulmonary embolism I26.99 Acute cor pulmonale presence: without acute cor pulmonale Chronicity: acute Pulmonary embolism type: unspecified Thrombocytopenia D69.6 Dehydration E86.0 Transaminitis R74.01 Developmental delay, profound R62.50 Sepsis A41.9 Sepsis type: sepsis due to unspecified organism Sepsis acute organ dysfunction status: unspecified
[2021-06-03 17:09] LABS: Glucose Point of Care 134 mg/dL (70-110)
[2021-06-03] MEDS: potassium chloride oral liq 20 mEq/15 mL UDC PEG-TUBE (17:20)
[2021-06-03] MEDS: apixaban 5 mg Tablet PEG-TUBE (17:20)
--- NOTE | 2021-06-03 20:30 | PC.NURSE ---
Pt Pulled out Central Line Went in to assess patient and he pulled out the right IJ central line. Catheter tip was intact and no bleeding was noted from insertion site. Put gauze and bandage over central line insertion site. Started an 18 gauge IV in the left AC, IV flushes easily and has blood return. Secured dressing with J-Loop and Venaguard.
[2021-06-03] MEDS: atorvastatin 40 mg Tablet 20 MG PO (21:05)
[2021-06-04] VITALS (7 sets, daily range): BP systolic 104–143; BP diastolic 69–89; PULSE 98–120; RESP 15–18; TEMP 36.8–38.1; O2SAT 89–98
--- NOTE | 2021-06-04 | PC.NURSE ---
Transfer to [facility] Patient transferred to [facility] at 2355 by bed and placed in room 279. He remained on 5L NC throughout transfer and was hooked up to 5L NC when placed in the med surg room. Patient has wound on the buttock, an optifoam dressing is in place it is currently dry and intact. Left AC IV is saline locked at this time. Left abdomen PEG tube feeding is running at 55 mls/hr. Patient has bruising noted on the arms in various stages of healing. Patient opens eyes spontaneously, localizes pain, and has no speech.
[2021-06-04] MEDS: levETIRAcetam 500 mg Tablet 1500 MG PEG-TUBE ×2 (03:59→15:19)
[2021-06-04] MEDS: apixaban 5 mg Tablet PEG-TUBE ×2 (05:31→17:58)
[2021-06-04] MEDS: ascorbic acid 500 mg Tablet 1000 MG PEG-TUBE ×2 (11:19→17:58)
[2021-06-04] MEDS: zinc gluconate 50 mg Tablet PO (11:19)
[2021-06-04] MEDS: PARoxetine 20 mg Tablet 10 MG PO (11:19)
[2021-06-04] MEDS: cholecalciferol (vitamin D3) 1,000 unit Tablet 1000 UNIT PO (11:19)
[2021-06-04] MEDS: acetaminophen 325 mg Tablet 650 MG PO ×2 (11:20→18:05)
[2021-06-04] MEDS: pantoprazole DR 40 mg Tablet PO ×2 (11:20→17:58)
[2021-06-04] MEDS: dexamethasone 4 mg Tablet 6 MG PEG-TUBE (11:20)
--- NOTE | 2021-06-04 11:37 | PC.NUTR ---
Nutrition follow up: No changes recommended at this time. Recommend to continue with Pulmocare at rate of 55 ml/hr and 250 ml H2O flushes q 6 hrs, monitoring for residuals, tolerance, and labs, including Na, K, glucose, and renal labs. See RD assessments for further details.
[2021-06-04 11:53] LABS: Glucose Point of Care 119 mg/dL (70-110)
--- NOTE | 2021-06-04 15:06 | P.PN_ITS ---
Subjective Subjective: Interval history: Patient tolerating tube feeds at goal Vitals/I&O/Wt Last Vital Signs Temp 99.0 F 06/04/21 12:00 Pulse 115 H 06/04/21 12:00 Resp 16 06/04/21 12:00 BP 143/89 06/04/21 12:00 Pulse Ox 90 06/04/21 12:00 06/04/21 06/04/21 06/04/21 06:59 14:59 22:59 Intake Total 55 / 55 Balance 55 / 55 Weight last 48 hrs Weight 141 lb Weight 138 lb Physical Exam Narrative: EXAM NARRATIVE: Abdomen: Soft, nondistended, PEG tube in the left upper quadrant Urinary Catheter Management^: Lamb: Cath Placed During This Visit: yes Reason for Continuing Indwelling Catheter: Accurate Measurement of Urinary O utput in Critically Ill Patients Urinary Catheter Date of Insertion: 05/23/21 Urinary Catheter Time of Insertion: 14:48 Data : 06/03/21 05:19 06/03/21 05:19 A&P Assessment and plan (1) S/P percutaneous endoscopic gastrostomy (PEG) tube placement: 66-year-old male with respiratory failure, learning disability, was positive COVID-19 on the ventilator. Status post PEG tube placement Tolerating tube feeds at goal Status: Acute Attestations Medical Necessity Statement*: As per primary Coding Level of Care Code Acute Adzing And Boring Machine Helper for Chg Fwd Diagnoses S/P percutaneous endoscopic gastrostomy (PEG) tube placement Z93.1
--- NOTE | 2021-06-04 15:24 | P.PN_ITS ---
Subjective Subjective: Interval history: No new clinical events overnight. No fever chills. Repeat speech evaluation ordered. Medications: Reviewed: Yes Vitals/I&O/Wt Last Vital Signs Temp 99.0 F 06/04/21 12:00 Pulse 115 H 06/04/21 12:00 Resp 16 06/04/21 12:00 BP 143/89 06/04/21 12:00 Pulse Ox 90 06/04/21 12:00 06/04/21 06/04/21 06/04/21 06:59 14:59 22:59 Intake Total 55 / 55 Balance 55 / 55 Weight last 48 hrs Weight 63.957 kg Weight 62.596 kg Physical Exam Narrative: EXAM NARRATIVE: Chronically ill-appearing. Const: COMMON NORMALS: no acute distress ORIENTATION/CONSCIOUSNESS: Yes awake; not oriented to person, not oriented to place and not oriented to time OTHER: Currently intubated, sedated HENMT: COMMON NORMALS: normocephalic and atraumatic HEAD & SCALP: normocephalic and atraumatic Eye: COMMON NORMALS: Equal, round and reactive pupils present PUPIL: Yes Equal, round and reactive pupils present OTHER: Pupils upwards going bilaterally Chest: COMMONS NORMALS: normal inspection of the chest Resp: COMMON NORMALS: normal respiratory effort, No retractions, No use of accessory muscles and clear to auscultation bilaterally AUSCULTATION: clear to auscultation bilaterally and diminished lung sounds (Diminished lung sounds in the lung shell) OTHER: Diminished air entry b/l ,coarse b/l breath sounds Cardio: COMMON NORMALS: regular rate, regular rhythm, S1 normal heart sound present, S2 normal heart sound present, No gallops present (Cardio), No murmurs present (Cardio), No rub (Cardio) and Peripheral pulses 2+ throughout RATE: regular rate RHYTHM: regular rhythm HEART SOUNDS: S1 normal heart sound present and S2 normal heart sound present PERIPHERAL PULSES: Peripheral pulses 2+ throughout GI: COMMON NORMALS: Normal to inspection, nondistended, normoactive bowel soun ds present, Soft to palpation, No hepatosplenomegaly present and no masses AUSCULTATION: Yes normoactive bowel sounds PALPATION: Yes Soft to palpation and Yes No hepatosplenomegaly present RECTAL EXAM: Yes deferred OTHER: PEG tube in place, clean and dry Extremity: COMMON NORMALS: no clubbing, cyanosis or edema and no pedal edema NARRATIVE EXTREMITY EXAM: 1+ pitting edema OTHER: Flexion contracture of bilateral upper extremities Extensor posturing bilateral lower extremities No pitting edema Neuro: SENSORIUM/ORIENTATION: No oriented to person, No oriented to place and No oriented to time Psych: COMMON NORMALS: mental status grossly normal Urinary Catheter Management^: Lamb: Cath Placed During This Visit: yes Reason for Continuing Indwelling Catheter: Accurate Measurement of Urinary Output in Critically Ill Patients Urinary Catheter Date of Insertion: 05/23/21 Urinary Catheter Time of Insertion: 14:48 Data : 06/03/21 05:19 06/03/21 05:19 A&P Assessment and plan (1) Respiratory failure with hypoxia: CT angio chest:PE protcl: Very small, nonocclusive age-indeterminate emboli in the proximal upper lobe pulmonary arteries and distal LEFT lower lobe pulmonary artery. Bilateral scattered pulmonary opacifications and probable reactive lymphadenopathy. Pneumonitis and pneumonia should be considered. Wean to 4 L via nasal cannula S/p mechanical ventilation No change to current med regimen ABG / CXR in am Pulmonary hermelinda Has finished remdesivir Decadron 6 mg IV push daily On doxycycline 100 mg b.i.d. -Discontinue and monitor off He has also received 1 dose of tocilizumab 05/23/2021 likely require oxygen at discharge Status: Acute Qualifiers: Chronicity: acute Qualified Code(s): J96.01 - Acute respiratory failure with hypoxia (2) Pneumonia due to COVID-19 virus: Management as noted above Status: Acute (3) Hypernatremia: Resolved Status: Acute (4) Pulmonary embolism: Eliquis 5 mg twice daily. bleeding precautions Status: Acute Qualifiers: Acute cor pulmonale presence: without acute cor pulmonale Chronicity: acute Pulmonary embolism type: unspecified Qualified Code(s): I26.99 - Other pulmonary embolism without acute cor pulmonale (5) Thrombocytopenia: Continue to monitor closely Status: Acute (6) Dehydration: Status: Acute (7) Transaminitis: Status: Acute (8) Developmental delay, profound: Patient with baseline profound developmental delay, nonverbal Status: Acute (9) Sepsis: Status: Acute Qualifiers: Sepsis type: sepsis due to unspecified organism Sepsis acute organ dysfunction status: unspecified Qualified Code(s): A41.9 - Sepsis, unspecified organism Additional A&P Information Seizure disorder Continue Keppra for history of seizures FEN Tube feeds ST eval Full code Eliquis for DVT prophylaxis Disposition: Arranging placement to SNF, no longer qualifies for select. Attestations Medical Necessity Statement*: require further hospitalization for management of dysphagia and arranging placement Time Spent in Patient Care: Greater than 35 minutes (>than 50% of time spent in counselling and/or direct pt care on unit) . Coding Level of Care Code Acute Coal Carrier for [facility] Fwd Diagnoses Respiratory failure with hypoxia J96.01 Chronicity: acute Pneumonia due to COVID-19 virus U07.1; J12.82 Hypernatremia E87.0 Pulmonary embolism I26.99 Acute cor pulmonale presence: without acute cor pulmonale Chronicity: acute Pulmonary embolism type: unspecified Thrombocytopenia D69.6 Dehydration E86.0 Transaminitis R74.01 Developmental delay, profound R62.50 Sepsis A41.9 Sepsis type: sepsis due to unspecified organism Sepsis acute organ dysfunction status: unspecified
[2021-06-04] MEDS: atorvastatin 40 mg Tablet 20 MG PO (21:21)
[2021-06-05] VITALS (9 sets, daily range): BP systolic 100–120; BP diastolic 62–81; PULSE 78–91; RESP 15–20; TEMP 36.5–36.8; O2SAT 90–99
[2021-06-05] MEDS: levETIRAcetam 500 mg Tablet 1500 MG PEG-TUBE ×2 (03:53→14:49)
[2021-06-05] MEDS: apixaban 5 mg Tablet PEG-TUBE ×2 (06:11→17:02)
[2021-06-05] MEDS: PARoxetine 20 mg Tablet 10 MG PO (10:43)
[2021-06-05] MEDS: cholecalciferol (vitamin D3) 1,000 unit Tablet 1000 UNIT PO (10:43)
[2021-06-05] MEDS: ascorbic acid 500 mg Tablet 1000 MG PEG-TUBE ×2 (10:43→17:02)
[2021-06-05] MEDS: zinc gluconate 50 mg Tablet PO (10:43)
[2021-06-05] MEDS: pantoprazole DR 40 mg Tablet PO ×2 (10:43→17:02)
[2021-06-05] MEDS: dexamethasone 4 mg Tablet 6 MG PEG-TUBE (10:44)
[2021-06-05] MEDS: polyethylene glycol 3350 Pkt 17 gm PO (10:44)
--- NOTE | 2021-06-05 15:35 | PM.PN ---
Subjective Subjective: Interval history: patient remained stable overnight. Continued to have loose bowel movements with rectal tube however improving. No fever or chills overnight. Remain on 5 L of O2 via nasal cannula. Medications: Reviewed: Yes Vitals/I&O/Wt Last Vital Signs Temp 97.7 F 06/05/21 12:41 Pulse 81 06/05/21 12:41 Resp 18 06/05/21 12:41 BP 108/66 06/05/21 12:41 Pulse Ox 99 06/05/21 12:41 06/05/21 06/05/21 06/05/21 06:59 14:59 22:59 Intake Total 60 / 60 Output Total 550 / 550 Balance -550 / -495 60 / 60 Weight last 48 hrs Weight 61.235 kg Weight 63.957 kg Physical Exam Const: COMMON NORMALS: no acute distress ORIENTATION/CONSCIOUSNESS: Yes awake; not oriented to person, not oriented to place and not oriented to time HENMT: COMMON NORMALS: normocephalic and atraumatic HEAD & SCALP: normocephalic and atraumatic Eye: COMMON NORMALS: Equal, round and reactive pupils present PUPIL: Yes Equal, round and reactive pupils present Chest: COMMONS NORMALS: normal inspection of the chest Resp: COMMON NORMALS: normal respiratory effort, No retractions, No use of accessory muscles and clear to auscultation bilaterally AUSCULTATION: clear to auscultation bilaterally and diminished lung sounds (Diminished lung sounds in the lung shell) Cardio: COMMON NORMALS: regular rate, regular rhythm, S1 normal heart sound present, S2 normal heart sound present, No gallops present (Cardio), No murmurs present (Cardio), No rub (Cardio) and Peripheral pulses 2+ throughout RATE: regular rate RHYTHM: regular rhythm HEART SOUNDS: S1 normal heart sound present and S2 normal heart sound present PERIPHERAL PULSES: Peripheral pulses 2+ throughout GI: COMMON NORMALS: Normal to inspection, nondistended, normoactive bowel sounds present, Soft to palpation, No hepatosplenomegaly present and no masses AUSCULTATION: Yes normoactive bowel sounds PALPATION: Yes Soft to palpation and Yes No hepatosplenomegaly present RECTAL EXAM: Yes deferred Extremity: COMMON NORMALS: no clubbing, cyanosis or edema and no pedal edema Neuro: SENSORIUM/ORIENTATION: No oriented to person, No oriented to place and No oriented to time Psych: COMMON NORMALS: mental status grossly normal Urinary Catheter Management^: Lamb: Cath Placed During This Visit: yes Reason for Continuing Indwelling Catheter: Acute Urinary Retention or Obstruction Urinary Catheter Date of Insertion: 05/23/21 Urinary Catheter Time of Insertion: 14:48 Data : 06/03/21 05:19 06/03/21 05:19 A&P Assessment and plan (1) Respiratory failure with hypoxia: CT angio chest:PE protcl: Very small, nonocclusive age-indeterminate emboli in the proximal upper lobe pulmonary arteries and distal LEFT lower lobe pulmonary artery. Bilateral scattered pulmonary opacifications and probable reactive lymphadenopathy. Pneumonitis and pneumonia should be considered. Wean to 5 L via nasal cannula S/p mechanical ventilation No change to current med regimen ABG / CXR in am Pulmonary hermelinda Has finished remdesivir Decadron 6 mg IV push daily On doxycycline 100 mg b.i.d. -Discontinue and monitor off He has also received 1 dose of tocilizumab 05/23/2021 Arrange home O2 if discharged to senior living Status: Acute Qualifiers: Chronicity: acute Qualified Code(s): J96.01 - Acute respiratory failure with hypoxia (2) Pneumonia due to COVID-19 virus: Management as noted above Status: Acute (3) Hypernatremia: Resolved Status: Acute (4) Pulmonary embolism: Eliquis 5 mg twice daily. bleeding precautions Status: Acute Qualifiers: Acute cor pulmonale presence: without acute cor pulmonale Chronicity: acute Pulmonary embolism type: unspecified Qualified Code(s): I26.99 - Other pulmonary embolism without acute cor pulmonale (5) Thrombocytopenia: Continue to monitor closely Status: Acute (6) Dehydration: Status: Acute (7) Transaminitis: Status: Acute (8) Developmental delay, profound: Patient with baseline profound developmental delay, nonverbal Status: Acute (9) Sepsis: Status: Acute Qualifiers: Sepsis type: sepsis due to unspecified organism Sepsis acute organ dysfunction status: unspecified Qualified Code(s): A41.9 - Sepsis, unspecified organism Additional A&P Information Diarrhea Stop Colace and MiraLax Continue rectal tube until improved Seizure disorder Continue Keppra for history of seizures FEN Tube feeds ST eval Full code Eliquis for DVT prophylaxis Disposition: Arranging placement to SNF, no longer qualifies for select. Attestations Medical Necessity Statement*: Will require further hospitalization for management of discharge placement arrangements and diarrhea Time Spent in Patient Care: Greater than 35 minutes (>than 50% of time spent in counselling and/or direct pt care on unit). Coding Level of Care Code Acute It Applications Analyst for g Fwd Diagnoses Respiratory failure with hypoxia J96.01 Chronicity: acute Pneumonia due to COVID-19 virus U07.1; J12.82 Hypernatremia E87.0 Pulmonary embolism I26.99 Acute cor pulmonale presence: without acute cor pulmonale Chronicity: acute Pulmonary embolism type: unspecified Thrombocytopenia D69.6 Dehydration E86.0 Transaminitis R74.01 Developmental delay, profound R62.50 Sepsis A41.9 Sepsis type: sepsis due to unspecified organism Sepsis acute organ dysfunction status: unspecified
[2021-06-05 16:33] LABS: Basophils # 0.1 10^3/uL (0.0-0.1); Basophils % 0.2 %; Eosinophils % 0.2 %; Hematocrit 45.5 % (42.0-52.0); Hemoglobin 14.6 g/dL (11.7-16.6); Lymphocytes # 0.8 10^3/uL (0.8-4.8); Lymphocytes % 3.9 %; Mean Corpuscular HGB Conc 32.1 g/dL (30.0-36.0); Mean Corpuscular Hemoglobin 30.9 pg (28.0-34.0); Mean Corpuscular Volume 96.2 fL (80-94); Mean Platelet Volume 12.6 fL (7.4-10.4); Monocytes # 0.3 10^3/uL (0.2-0.9); Monocytes % 1.2 %; Neutrophils # 19.78 10^3/uL (1.8-7.7); Neutrophils % 93.7 %; Nucleated Red Blood Cells % 0 %; Platelet Count 200 10^3/cmm (130-400); Red Blood Count 4.73 10^6/uL (4.1-5.3); Red Cell Distribution Width 14.5 % (12.1-15.1); White Blood Count 21.1 10^3/uL (4.0-10.0)
[2021-06-05 16:54] LABS: Anion Gap 15.3 (5-19); Blood Urea Nitrogen 27 mg/dL (8-23); Calcium 8.5 mg/dL (8.5-10.5); Carbon Dioxide 26 mmol/L (22-29); Chloride 101 mmol/L (98-107); Glomerular Filtration Rate 167.4 mL/min (90-130); Glucose 147 mg/dL (65-115); Osmolality Calculated 294 mOsm/kg (285-295); Potassium 4.3 mmol/L (3.5-5.1); Sodium 138 mmol/L (136-145)
[2021-06-05] MEDS: atorvastatin 40 mg Tablet 20 MG PO (22:40)
[2021-06-06] VITALS (16 sets, daily range): BP systolic 108–120; BP diastolic 52–75; PULSE 84–100; RESP 12–20; TEMP 36.1–37.2; O2SAT 88–97
[2021-06-06] MEDS: levETIRAcetam 500 mg Tablet 1500 MG PEG-TUBE ×2 (03:56→16:13)
[2021-06-06] MEDS: apixaban 5 mg Tablet PEG-TUBE (04:00)
[2021-06-06 06:32] LABS: Basophils # 0.1 10^3/uL (0.0-0.1); Basophils % 0.3 %; Eosinophils # 0.1 10^3/uL (0.0-0.8); Eosinophils % 0.5 %; Hematocrit 47.2 % (42.0-52.0); Hemoglobin 15.1 g/dL (11.7-16.6); Lymphocytes # 1.8 10^3/uL (0.8-4.8); Lymphocytes % 10.2 %; Mean Corpuscular Hemoglobin 30.4 pg (28.0-34.0); Mean Platelet Volume 12.9 fL (7.4-10.4); Monocytes # 1.2 10^3/uL (0.2-0.9); Monocytes % 6.6 %; Neutrophils # 14.18 10^3/uL (1.8-7.7); Neutrophils % 81.6 %; Nucleated Red Blood Cells % 0 %; Platelet Count 237 10^3/cmm (130-400); Red Blood Count 4.97 10^6/uL (4.1-5.3); Red Cell Distribution Width 14.6 % (12.1-15.1); White Blood Count 17.4 10^3/uL (4.0-10.0)
[2021-06-06 06:47] LABS: Blood Urea Nitrogen 25 mg/dL (8-23); Calcium 8.7 mg/dL (8.5-10.5); Carbon Dioxide 32 mmol/L (22-29); Chloride 99 mmol/L (98-107); Glomerular Filtration Rate 135.6 mL/min (90-130); Glucose 93 mg/dL (65-115); Osmolality Calculated 294 mOsm/kg (285-295); Sodium 140 mmol/L (136-145)
[2021-06-06 06:52] LABS: Anion Gap 13.4 (5-19); Potassium 4.4 mmol/L (3.5-5.1)
[2021-06-06 07:01] LABS: Glucose Point of Care 95 mg/dL (70-110)
[2021-06-06] MEDS: ascorbic acid 500 mg Tablet 1000 MG PEG-TUBE ×2 (09:03→16:13)
[2021-06-06] MEDS: PARoxetine 20 mg Tablet 10 MG PO (09:03)
[2021-06-06] MEDS: cholecalciferol (vitamin D3) 1,000 unit Tablet 1000 UNIT PO (09:03)
[2021-06-06] MEDS: pantoprazole DR 40 mg Tablet PO ×2 (09:03→16:13)
[2021-06-06] MEDS: dexamethasone 4 mg Tablet 6 MG PEG-TUBE (09:03)
[2021-06-06] MEDS: zinc gluconate 50 mg Tablet PO (09:03)
--- NOTE | 2021-06-06 09:45 | PC.NURSE ---
We reported the low 02 level to the nurse 88%
--- NOTE | 2021-06-06 10:36 | PC.NURSE ---
patient pulled out PEG tube. machine sign writer notified Dr Núñez
--- NOTE | 2021-06-06 11:01 | PC.NURSE ---
Notified Dr Blackman that patient pulled out PEG and has coffee ground stool coming from the PEG insertion site.
--- NOTE | 2021-06-06 11:14 | PC.NURSE ---
Rcvd verbal order from Dr Núñez to hold Sarthak. scientific writer put order on HOLD.
--- NOTE | 2021-06-06 11:45 | XRR_ITS ---
PROCEDURE INFORMATION: Exam: XR Abdomen Exam date and time: 06/06/2021 11:45 AM Age: 66 years old Clinical indication: Device placement; Gi device; Peg tube; Additional info: Peg placement TECHNIQUE: Imaging protocol: XR of the abdomen. Views: Frontal supine view of the abdomen. 1 View. COMPARISON: CT abdomen pelvis w con* [id number] 04/09/2019 1:55 PM FINDINGS: Tubes, catheters and devices: Contrast installation noted through the PEG tube. Gastrointestinal tract: Gaseous distention of the bowel noted. Contrast opacification around the rugal folds suggesting intraluminal placement of the PEG within the stomach. Intraperitoneal space: Contrast spillage within the intraperitoneal space is noted with contrast opacification around the right hemidiaphragm and liver. Bones/joints: Unremarkable. XR/XR KUB portable [id number] IMPRESSION: 1. Contrast spillage within the intraperitoneal space. If no spillage was noted during any manipulation/placement, then this raises concern for hollow viscus perforation which can be further evaluated with CT of the abdomen/pelvis. 2. Intraluminal contrast opacification of the stomach suggesting proper positioning of the PEG tube. Findings were discussed with Dr. Núñez at 06/06/2021 1:56 PM CDT.
[2021-06-06] MEDS: diatrizoate meglumine 30 mL Sol XX (11:50)
[2021-06-06 12:05] LABS: Glucose Point of Care 117 mg/dL (70-110)
--- NOTE | 2021-06-06 12:17 | PC.NURSE ---
Certified Alcohol And Drug Counselor called patient's guardian Starr Hobbs [phone]. concrete gun operator said they will return call to us. Certified Alcohol And Drug Counselor notified her it is for consent for procedure. waiting on return call.
--- NOTE | 2021-06-06 12:57 | PC.NURSE ---
patient taken to OR
--- NOTE | 2021-06-06 13:05 | P.ANESASSM_ITS ---
Pre-Anesthetic Assessment Pre-Anesthetic Assessment: Height/Weight: Height 1.68 m Weight 61.326 kg Temp Pulse Resp BP Pulse Ox 97.7 F 84 18 114/75 90 06/06/21 12:00 06/06/21 12:00 06/06/21 12:00 06/06/21 12:00 06/06/21 12:00 Preop Diagnosis: Respiratory failure requiring enteral access Proposed Procedure: Operation Date: 05/27/21 13:15 Proposed Procedures p PEG Tube Insertion(Not Applicable) - Demarcus Blackman MD Operation Date: 06/06/21 13:30 Proposed Procedures p PEG Tube Insertion(Not Applicable) - Demarcus Blackman MD Last intake: Tube feeds stopped at 1100 - surgeon informed patient needs to wait 8 hrs for non-emergent procedures. Social: Social History: No alcohol and No tobacco Exam: Pre-Anes Outpt Exam: clear to auscultation bilaterally and regular rate & rhythm Pulmonary: Comments: COVID w/ pnuemonia/ARDS Neuropsych: Comments: profound developmental delay, cerebral palsy Anesthetic Plan: ASA status: 4E Anesthesia: General Other: RSI d/t full stomach status Risk of > 500 ml blood loss (7ml/kg in children): No Other Pertinent Information: Informed patient has no family,, declared emergency procedure by surgeon. Proceeding without consent Meds/Allergies Current Medications: Current Medications Generic Name Dose Route Start Last Admin Trade Name Freq PRN Reason Stop Dose Admin Acetaminophen 650 mg 05/21/21 10:23 06/04/21 18:05 Acetaminophen 32 5 Mg Tablet PO 650 mg Q6H PRN Administration Mild/Mod Pain Or Temp >/= 101 Apixaban 5 mg 06/03/21 17:00 06/06/21 04:00 Apixaban 5 Mg Ta blet PEG-TUBE 5 mg Q12H SHWETA Administration Ascorbic Acid 1,000 mg 05/31/21 09:00 06/06/21 09:03 Ascorbic Acid 50 0 Mg Tablet PEG-TUBE 1,000 mg BID SHWETA Administration Atorvastatin Calci um 20 mg 05/31/21 20:00 06/05/21 22:40 Atorvastatin 40 Mg Tablet PO 20 mg DAILY@20 SHWETA Administration Dexamethasone 6 mg 05/31/21 15:00 06/06/21 09:03 Dexamethasone 4 Mg Tablet PEG-TUBE 6 mg DAILY SHWETA Administration Insulin Aspart 0 unit 05/25/21 08:00 06/06/21 12:23 Insulin Aspart 1 00 Unit/1 Ml SUBCUT Not Given TIDWM [facility] Protocol Lanolin 1 applic 05/28/21 14:29 05/28/21 15:22 Lanolin Oint 7 G m TOPICAL 1 appful PRN PRN Administration DRYNESS Levetiracetam 1,500 mg 05/31/21 15:00 06/06/21 03:56 Levetiracetam 50 0 Mg Tablet PEG-TUBE 1,500 mg Q12H SHWETA Administration Non-Formulary Medi cation 8 mg 05/31/21 20:00 06/05/21 23:19 Perampanel PO Not Given DAILY@20 [facility] Pantoprazole Sodiu m 40 mg 05/31/21 09:00 06/06/21 09:[address] 40 Mg Tablet PO 40 mg BID SHWETA Administration Paroxetine HCl 10 mg 06/01/21 08:00 06/06/21 09:03 Paroxetine 20 Mg Tablet PO 10 mg DAILY@08 SHWETA Administration Vitamin D 1,000 unit 05/24/21 14:45 06/06/21 09:03 Cholecalciferol (Vitamin D3) 1,000 Unit Tablet PO 1,000 unit DAILY SHWETA Administration Zinc Gluconate 50 mg 05/24/21 14:45 06/06/21 09:03 Zinc Gluconate 5 0 Mg Tablet PO 50 mg DAILY SHWETA Administration PFS Anesthesia PFSH: Medical History (Updated 05/27/21 @ 19:28 by Demarcus Blackman MD) Developmental delay, profound Elevated lactic acid level Pneumonia due to COVID-19 virus Pulmonary embolism Thrombocytopenia Surgical History (Updated 05/28/21 @ 18:09 by Demarcus Blackman MD) S/P percutaneous endoscopic gastrostomy (PEG) tube placement (05/27/21) Supplemental PFSH Information: Social history family history surgical history unobtainable as patient nonverbal Data Anesthesia CBC & Chem 7: 06/06/21 05:50 06/06/21 05:50 Other Labs: Laboratory Results - last 48 hr 06/05/21 06/05/21 06/06/21 16:22 16:22 05:50 WBC 21.1 H 17.4 H RBC 4.73 4.97 Hgb 14.6 15.1 Hct 45.5 47.2 MCV 96.2 H 95.0 H MCH 30.9 30.4 MCHC 32.1 32.0 RDW 14.5 14.6 Plt Count 200 237 MPV 12.6 H 12.9 H Neut % (Auto) 93.7 81.6 Lymph % (Auto) 3.9 10.2 [place] % (Auto) 1.2 6.6 Eos % (Auto) 0.2 0.5 Baso % (Auto) 0.2 0.3 Neut # (Auto) 19.78 H 14.18 H Lymph # (Auto) 0.8 1.8 [place] # (Auto) 0.3 1.2 H Eos # (Auto) 0.0 0.1 Baso # (Auto) 0.1 0.1 Nucleated RBC % (auto) 0 0 Nucleated RBCs # 0.0 0.0 Sodium 138 Potassium 4.3 Chloride 101 Carbon Dioxide 26 Anion Gap 15.3 BUN 27 H Creatinine 0.5 L GFR Calculation 167.4 H Glucose 147 H POC Glucose Calculated Osmolality 294 Calcium 8.5 Procalcitonin 06/06/21 06/06/21 06/06/21 05:50 06:41 12:00 WBC RBC Hgb Hct MCV MCH MCHC RDW Plt Count MPV Neut % (Auto) Lymph % (Auto) [place] % (Auto) Eos % (Auto) Baso % (Auto) Neut # (Auto) Lymph # (Auto) [place] # (Auto) Eos # (Auto) Baso # (Auto) Nucleated RBC % (auto) Nucleated RBCs # Sodium 140 Potassium 4.4 Chloride 99 Carbon Dioxide 32 H Anion Gap 13.4 BUN 25 H Creatinine 0.6 L GFR Calculation 135.6 H Glucose 93 POC Glucose 95 117 H Calculated Osmolality 294 Calcium 8.7 Procalcitonin 0.10 Cardiac Studies: No Data to Display
--- NOTE | 2021-06-06 13:07 | P.PN_ITS ---
Subjective Subjective: Interval history: Patient cannot communicate, PEG tube was pulled about an hour ago by the patient. He was getting tube feeds when the tube was pulled out. Patient has COVID-19 and is on Eliquis. Vitals/I&O/Wt Last Vital Signs Temp 97.7 F 06/06/21 12:00 Pulse 84 06/06/21 12:00 Resp 18 06/06/21 12:00 BP 114/75 06/06/21 12:00 Pulse Ox 90 06/06/21 12:00 06/05/21 06/06/21 06/06/21 22:59 06:59 14:59 Intake Total 120 / 120 Output Total 850 / 850 Balance -850 / -790 120 / 120 Weight last 48 hrs Weight 135 lb 3.2 oz Weight 135 lb Physical Exam Narrative: EXAM NARRATIVE: Abdomen: Mildly tender, nondistended Urinary Catheter Management^: Lamb: Cath Placed During This Visit: yes Reason for Continuing Indwelling Catheter: Accurate Measurement of Urinary Output in Critically Ill Patients Urinary Catheter Date of Insertion: 05/23/21 Urinary Catheter Time of Insertion: 14:48 Data : 06/06/21 05:50 06/06/21 05:50 A&P Assessment and plan (1) S/P percutaneous endoscopic gastrostomy (PEG) tube placement: 66-year-old male, unable to communicate had a PEG tube placed on 05/27/2021. The tube was pulled out this morning by the patient. Attempted to place the tube at the bedside and a G-tube study showed extravasation of contrast into the abdomen. Patient therefore will need to proceed to surgery. We will plan for placement of a new PEG tube and possible closure of the existing gastrostomy site. Patient was also getting tube feeds and I am worried that he will most likely have drainage of gastric contents into the peritoneal cavity. We will therefore plan for diagnostic laparoscopy and washout. 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 Patient has a surgical emergency as he is at risk of developing peritonitis from the leaking gastrostomy. Patient is at high risk of ending up on the ventilator postop. Start IV Zosyn Status: Acute Attestations Medical Necessity Statement*: As per primary Coding Level of Care Code Acute Tank Maker Wood for Chg Fwd Diagnoses S/P percutaneous endoscopic gastrostomy (PEG) tube placement Z93.1
[2021-06-06] MEDS: sodium chloride 0.9% 1,000 ML 30 ML IV (13:21)
[2021-06-06] MEDS: piperacillin-tazobactam 3.375 GM in sodium chloride 0.9% (plus) 50 ML IV ×2 (13:25→20:22)
--- NOTE | 2021-06-06 14:26 | P.OP_ITS ---
Operative Report Date of procedure: June 06, 2021 Pre-op Diagnosis: Displaced PEG tube Post-op Diagnosis: Gastrostomy appeared to be closed Moderate amount of gastric contents Procedure Done: Esophagogastroduodenoscopy with closure of gastrostomy with Resolution clips x3 Percutaneous endoscopic placement of 20 [place] [employer] Endovive gastrostomy tube via pull technique Pathology: none sent Surgeon: Demarcus Blackman Anesthesia: General Condition: stable Disposition: PACU Brief History: This is a 66-year-old male with altered mental status who had a PEG tube placed 11 days ago. Patient pulled the PEG tube and I replaced the PEG tube at the GJ tube study showed extravasation of contrast. There was no drainage from the gastrostomy tube and therefore I decided to take the patient to surgery emergently. Procedure: The patient was taken to the Operating Room and was placed under monitored anesthesia care after antibiotic had been administered. A bite block was placed and Olympus gastroscope was introduced and advanced up to the stomach and the first portion of the duodenum. There were no abnormalities noted in the esophagus, stomach and duodenum. There was moderate amount of gastric contents which was irrigated and suctioned. The gastrostomy from prior PEG tube placement appeared to be partially closed. Resolution clips x3 was placed to close the gastrostomy. The site for the planned new PEG was confirmed in the left upper quadrant with transillumination using gastroscope noted through the abdominal wall and indentation of the abdominal wall noted on the gastroscope. This site was marked, and total of 5 milliliters of 1% lidocaine was infiltrated. An 11-blade was used to make a stab incision. An introducer needle was passed through the abdominal wall into the gastric lumen and the needle removed and the needle removed and the sheath left behind. A guidewire was passed through the introducer needle into the gastric lumen and grasped with a snare attached to the gastroscope. The gastroscope was withdrawn along with the guidewire, which was attached to the 20-[place] EndoVive PEG tube. The guidewire was then pulled through the abdominal wall along with the PEG through the mouth into the gastric lumen until the inner disc was noted to stand against the gastric wall. The gastroscope was reintroduced to confirm good position. The outer disc was then attached and the two way valve was fixed to the PEG tube. The outer disc was noted to be at 3 centimeters at the skin level. Sterile dressing and abdominal binder was placed. The patient was stable throughout the procedure.
--- NOTE | 2021-06-06 14:26 | ANE.PACU2 ---
Inpatient post-anesthesia follow up: Airway intact: Yes Vital signs: Temperature 98.9 F Pulse Rate [Monito r] 97 Pulse Rate [Therap y Changed] 102 Pulse Rate [Curren t] 94 Pulse Rate 99 Respiratory Rate [ Therapy 19 Changed] Respiratory Rate [ Current] 20 Respiratory Rate 20 Blood Pressure [Ri ght Arm] 91/57 Blood Pressure 119/56 Pulse Oximetry [Th erapy 90 Changed] Pulse Oximetry [Cu rrent] 93 Pulse Oximetry 95 Oxygen Delivery Me thod Room Air Oxygen Flow Rate [ Therapy 6 Changed] Oxygen Flow Rate [ Current] 45 Oxygen Flow Rate 91 Fraction of Inspir ed Oxygen [ 80 Therapy Changed] Fraction of Inspir ed Oxygen [ 50 Current] Fraction of Inspir ed Oxygen 50 Hydration adequate: Yes Nausea and vomiting: No Pain level: 1 Mental status: Baseline
--- NOTE | 2021-06-06 15:22 | P.PN_ITS ---
Subjective Subjective: Interval history: Patient had PEG tube which was pulled out with bleeding around insertion site. General surgery was consulted in this was replaced. Eliquis was held No fever, chills overnight. Medications: Reviewed: Yes Vitals/I&O/Wt Last Vital Signs Temp 97.1 F L 06/06/21 14:21 Pulse 88 06/06/21 15:16 Resp 18 06/06/21 14:25 BP 120/62 06/06/21 14:25 Pulse Ox 97 06/06/21 14:25 06/06/21 06/06/21 06/06/21 06:59 14:59 22:59 Intake Total 170 / 170 Output Total 0 / 0 Balance 170 / 170 Weight last 48 hrs Weight 61.326 kg Weight 61.235 kg Physical Exam Const: COMMON NORMALS: no acute distress ORIENTATION/CONSCIOUSNESS: Yes awake; not oriented to person, not oriented to place and not oriented to time HENMT: COMMON NORMALS: normocephalic and atraumatic HEAD & SCALP: normocephalic and atraumatic Eye: COMMON NORMALS: Equal, round and reactive pupils present PUPIL: Yes Equal, round and reactive pupils present Chest: COMMONS NORMALS: normal inspection of the chest Resp: COMMON NORMALS: normal respiratory effort, No retractions, No use of accessory muscles and clear to auscultation bilaterally AUSCULTATION: clear to auscultation bilaterally and diminished lung sounds (Diminished lung sounds in the lung shell) Cardio: COMMON NORMALS: regular rate, regular rhythm, S1 normal heart sound present, S2 normal heart sound present, No gallops present (Cardio), No murmurs present (Cardio), No rub (Cardio) and Peripheral pulses 2+ throughout RATE: regular rate RHYTHM: regular rhythm HEART SOUNDS: S1 normal heart sound present and S2 normal heart sound present PERIPHERAL PULSES: Peripheral pulses 2+ throughout GI: COMMON NORMALS: Normal to inspection, nondistended, normoactive bowel sounds present, Soft to palpation, No hepatosplenomegaly present and no masses AUSCULTATION: Yes normoactive bowel sounds PALPATION: Yes Soft to palpation and Yes No hepatosplenomegaly present RECTAL EXAM: Yes deferred Extremity: COMMON NORMALS: no clubbing, cyanosis or edema and no pedal edema Neuro: SENSORIUM/ORIENTATION: No oriented to person, No oriented to place and No oriented to time Psych: COMMON NORMALS: mental status grossly normal Urinary Catheter Management^: Lamb: Cath Placed During This Visit: yes Reason for Continuing Indwelling Catheter: Accurate Measurement of Urinary Output in Critically Ill Patients Urinary Catheter Date of Insertion: 05/23/21 Urinary Catheter Time of Insertion: 14:48 Data : 06/06/21 05:50 06/06/21 05:50 A&P Assessment and plan (1) Respiratory failure with hypoxia: CT angio chest:PE protcl: Very small, nonocclusive age-indeterminate emboli in the proximal upper lobe pulmonary arteries and distal LEFT lower lobe pulmonary artery. Bilateral scattered pulmonary opacifications and probable reactive lymphadenopathy. Pneumonitis and pneumonia should be considered. Wean to 5 L via nasal cannula S/p mechanical ventilation No change to current med regimen ABG / CXR in am Pulmonary hermelinda Has finished remdesivir Decadron 6 mg IV push daily Was previously on doxycycline. He has also received 1 dose of tocilizumab 05/23/2021 Arrange home O2 if discharged to snf Status: Acute Qualifiers: Chronicity: acute Qualified Code(s): J96.01 - Acute respiratory failure with hypoxia (2) Pneumonia due to COVID-19 virus: Management as noted above Status: Acute (3) Hypernatremia: Resolved Status: Acute (4) Pulmonary embolism: Eliquis 5 mg twice daily. - held due to bleeding around dislodged peg tube bleeding precautions Status: Acute Qualifiers: Acute cor pulmonale presence: without acute cor pulmonale Chronicity: acute Pulmonary embolism type: unspecified Qualified Code(s): I26.99 - Other pulmonary embolism without acute cor pulmonale (5) Thrombocytopenia: Continue to monitor closely Status: Acute (6) Dehydration: Status: Acute (7) Transaminitis: Status: Acute (8) Developmental delay, profound: Patient with baseline profound developmental delay, nonverbal Status: Acute (9) Sepsis: Status: Acute Qualifiers: Sepsis type: sepsis due to unspecified organism Sepsis acute organ dysfunction status: unspecified Qualified Code(s): A41.9 - Sepsis, unspecified organism Additional A&P Information Diarrhea Stop Colace and MiraLax Continue rectal tube until improved Seizure disorder Continue Keppra for history of seizures FEN S/p PEG placement this admission Dislodged today - Replaced by surgery Empirically started on Zosyn per surgery ST on board. Full code Eliquis for DVT prophylaxis Disposition: Arranging placement to SNF, no longer qualifies for [facility]. Attestations Medical Necessity Statement*: Require further hospitalization forPEG tube replacement and iv abx Time Spent in Patient Care: Greater than 35 minutes (>than 50% of time spent in counselling and/or direct pt care on unit) . 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
--- NOTE | 2021-06-06 15:55 | PC.NURSE ---
Asked Dr Blackman if PEG can be used. Per Dr Blackman, PEG is to be left to gravity except for meds.
[2021-06-06 17:05] LABS: Glucose Point of Care 122 mg/dL (70-110)
[2021-06-06] MEDS: atorvastatin 40 mg Tablet 20 MG PO (20:19)
[2021-06-06 21:54] LABS: Glucose Point of Care 133 mg/dL (70-110)
[2021-06-07] VITALS (9 sets, daily range): BP systolic 100–118; BP diastolic 63–71; PULSE 104–120; RESP 14–24; TEMP 36.6–36.8; O2SAT 88–94
--- NOTE | 2021-06-07 | XRR_ITS ---
[facility] Final Radiology Report Call: [phone] assistance Online chat: [email or web address] Name: MACARIO SHELBY Age: 66Years M Date: 06/07/2021 SSN: [id number] : 1955 Study: XR ABDOMEN COMPLETE W A SNGL VIEW CXR Requesting Physician: CHRISTIANO JAMA Images: 4 Add?l Studies: Provided Clinical History: PROCEDURE INFORMATION: Exam: XR Complete Acute Abdomen Series Including Chest Exam date and time: 06/07/2021 1:29 PM Age: 66 years old Clinical indication: Device placement; Gi device; Patient HX: Peg tube placement, possible constipation TECHNIQUE: Imaging protocol: XR complete acute abdomen series, including 2 or more views of the abdomen and a single view chest. COMPARISON: CR (ABDOMEN, ) 06/06/2021 11:46 AM FINDINGS: Lungs: Bilateral consolidation. Pleural spaces: No definite pleural effusions. No pneumothorax. Heart/Mediastinum: Normal. No cardiomegaly. Gastrointestinal tract: Colonic dilatation, no small bowel dilatation. No constipation. Percutaneous gastrostomy tube projects over the midline. Intraperitoneal space: Normal. No free air. Bones/joints: No acute fracture. Soft tissues: No acute findings. IMPRESSION: Nonspecific colonic dilatation, no constipation. Bilateral pneumonia. Thank you for allowing us to participate in the care of your patient. Dictated and Authenticated by: Trent Villegas MD 06/07/2021 2:26 PM Central Time ([place] & [place]) LEO
[2021-06-07] MEDS: levETIRAcetam 500 mg Tablet 1500 MG PEG-TUBE ×2 (03:35→14:41)
[2021-06-07] MEDS: piperacillin-tazobactam 3.375 GM in sodium chloride 0.9% (plus) 50 ML IV ×3 (05:06→21:44)
--- NOTE | 2021-06-07 07:13 | PC.NURSE ---
Physician contacted regarding morning Eliquis due to black coffee ground drainage from PEG. Physician ordered hold of Eliquis dose.
[2021-06-07 07:42] LABS: Glucose Point of Care 117 mg/dL (70-110)
[2021-06-07] MEDS: PARoxetine 20 mg Tablet 10 MG PO (08:33)
[2021-06-07] MEDS: zinc gluconate 50 mg Tablet PO (08:33)
[2021-06-07] MEDS: dexamethasone 4 mg Tablet 6 MG PEG-TUBE (08:34)
[2021-06-07] MEDS: pantoprazole DR 40 mg Tablet PO ×2 (08:34→17:27)
[2021-06-07] MEDS: ascorbic acid 500 mg Tablet 1000 MG PEG-TUBE (08:34)
[2021-06-07] MEDS: cholecalciferol (vitamin D3) 1,000 unit Tablet 1000 UNIT PO (08:34)
--- NOTE | 2021-06-07 09:38 | PC.NURSE ---
patient's guardian called to check on patient. updated guardian.
--- NOTE | 2021-06-07 10:01 | PC.NURSE ---
Notified Dr Marin that patient's HR is 120 and patient is now on 6L NC and oxygen is 90%
--- NOTE | 2021-06-07 10:40 | ECG_ITS ---
[facility] Test Date: 2021-06-07 Pat Name: Jorge Luis Lucas Department: Room: 264 Gender: Male Clinical Nursing Assistant: : 1955 Requested By: Shon Marin Order Number: [id number] Ash MD: Anuel Freitas M.D. Measurements Intervals [place] Rate: 117 P: 53 FL: 130 QRS: 42 QRSD: 77 T: 27 QT: 345 QTc: 483 Interpretive Statements SINUS TACHYCARDIA POSSIBLE LEFT ATRIAL ENLARGEMENT [-0.1mV P WAVE IN V1/V2] MODERATE ST DEPRESSION [0.05+ mV ST DEPRESSION] Compared to ECG 05/27/2021 05:24:39 ST (T wave) deviation now present Sinus rhythm no longer present Electronically Signed On 06-07-2021 18:09:12 CDT by Anuel Freitas M.D. [email or web address]
--- NOTE | 2021-06-07 11:09 | PC.NURSE ---
Notified Dr Crisostomo and Dr Blackman that patient has coffee ground emesis coming from the PEG tube and no out put from the rectal tube.
[2021-06-07 11:17] LABS: Glucose Point of Care 134 mg/dL (70-110)
[2021-06-07] MEDS: dextrose 5%-sod chloride 0.9% 1,000 ML 75 ML IV (14:41)
[2021-06-07 14:49] LABS: Basophils # 0.1 10^3/uL (0.0-0.1); Basophils % 0.4 %; Eosinophils # 0.1 10^3/uL (0.0-0.8); Eosinophils % 0.3 %; Hematocrit 45.7 % (42.0-52.0); Hemoglobin 14.5 g/dL (11.7-16.6); Lymphocytes # 0.7 10^3/uL (0.8-4.8); Lymphocytes % 3.8 %; Mean Corpuscular HGB Conc 31.7 g/dL (30.0-36.0); Mean Corpuscular Hemoglobin 30.5 pg (28.0-34.0); Mean Corpuscular Volume 96.2 fL (80-94); Mean Platelet Volume 12.5 fL (7.4-10.4); Monocytes # 0.8 10^3/uL (0.2-0.9); Monocytes % 3.9 %; Neutrophils # 17.67 10^3/uL (1.8-7.7); Neutrophils % 91.1 %; Nucleated Red Blood Cells % 0 %; Platelet Count 252 10^3/cmm (130-400); Red Blood Count 4.75 10^6/uL (4.1-5.3); Red Cell Distribution Width 15.1 % (12.1-15.1); White Blood Count 19.4 10^3/uL (4.0-10.0)
[2021-06-07 15:16] LABS: Procalcitonin 0.17 ng/mL (0-0.5)
--- NOTE | 2021-06-07 17:15 | PC.NURSE ---
Per leia Ames
--- NOTE | 2021-06-07 17:15 | PC.NURSE ---
Per Dr Marin, [facility]
--- NOTE | 2021-06-07 17:23 | PM.PN ---
Subjective Subjective: Interval history: Patient had pulled out the PEG tube yesterday and a new PEG tube was placed. he has been having coffee-ground drainage from the PEG tube Vitals/I&O/Wt Last Vital Signs Temp 98.3 F 06/07/21 04:00 Pulse 112 H 06/07/21 15:46 Resp 20 H 06/07/21 15:46 BP 102/65 06/07/21 15:46 Pulse Ox 92 06/07/21 15:46 06/07/21 06/07/21 06/07/21 06:59 14:59 22:59 Intake Total 50 / 220 50 / 50 Output Total 400 / 1175 900 / 900 Balance -350 / -955 50 / -850 -900 / -850 Weight last 48 hrs Weight 145 lb 5 oz Weight 135 lb 3.2 oz Physical Exam Narrative: EXAM NARRATIVE: Abdomen: Soft, nondistended, nontender, PEG tube in the left upper quadrant Urinary Catheter Management^: Lamb: Cath Placed During This Visit: yes Reason for Continuing Indwelling Catheter: Other Urinary Catheter Date of Insertion: 05/23/21 Urinary Catheter Time of Insertion: 14:48 Data : 06/07/21 14:35 06/06/21 05:50 Micro: Microbiology 06/07/21 14:30 Blood Culture - Preliminary Blood SPECIMEN COLLECTED 06/07/21 14:35 Blood Culture - Preliminary Blood SPECIMEN COLLECTED A&P Assessment and plan (1) S/P percutaneous endoscopic gastrostomy (PEG) tube placement: 66-year-old male, unable to communicate had a PEG tube placed on 05/27/2021. Patient pulled the tube out and a new PEG tube was placed 06/06/2021. Continue PEG to gravity Continue PPI therapy, hemoglobin has remained stable WBC increased to 19.4, has been afebrile: Continue IV Zosyn Status: Acute Attestations Medical Necessity Statement*: PEG tube placement Coding Level of Care Code Acute Lvn Home Health for Chg Fwd Diagnoses S/P percutaneous endoscopic gastrostomy (PEG) tube placement Z93.1
--- NOTE | 2021-06-07 17:35 | PC.NURSE ---
patient's de la cruz catheter bag leaked on floor. unable to measure urine.
[2021-06-07 17:39] LABS: Glucose Point of Care 143 mg/dL (70-110)
--- NOTE | 2021-06-07 17:40 | PM.PN ---
Subjective Subjective: Interval history: Hospital course, labs appreciated. No events overnight patient had tach. Replaced yesterday by Dr. Blackman as patient had pulled out the PEG tube. Post PEG tube placement patient has not had any bowel movement with his brothers putting out up to 1000 cc of coffee-ground fluid from the PEG tube. Patient has remained hemodynamically stable and afebrile overnight. On 5 L oxygen supplementation to maintain saturation 95%. Medications: Reviewed: Yes Vitals/I&O/Wt Last Vital Signs Temp 98.3 F 06/07/21 04:00 Pulse 112 H 06/07/21 15:46 Resp 20 H 06/07/21 15:46 BP 102/65 06/07/21 15:46 Pulse Ox 92 06/07/21 15:46 06/07/21 06/07/21 06/07/21 06:59 14:59 22:59 Intake Total 50 / 220 50 / 50 Output Total 400 / 1175 900 / 900 Balance -350 / -955 50 / 50 -900 / -850 Weight last 48 hrs Weight 65.913 kg Weight 61.326 kg Physical Exam Const: COMMON NORMALS: no acute distress ORIENTATION/CONSCIOUSNESS: Yes awake; not oriented to person, not oriented to place and not oriented to time HENMT: COMMON NORMALS: normocephalic and atraumatic HEAD & SCALP: normocephalic and atraumatic Eye: COMMON NORMALS: Equal, round and reactive pupils present PUPIL: Yes Equal, round and reactive pupils present Chest: COMMONS NORMALS: normal inspection of the chest Resp: COMMON NORMALS: normal respiratory effort, No retractions, No use of accessory muscles and clear to auscultation bilaterally AUSCULTATION: clear to auscultation bilaterally and diminished lung sounds (Diminished lung sounds in the lung shell) Cardio: COMMON NORMALS: regular rate, regular rhythm, S1 normal heart sound present, S2 normal heart sound present, No gallops present (Cardio), No murmurs present (Cardio), No rub (Cardio) and Peripheral pulses 2+ throughout RATE: regular rate RHYTHM: regular rhythm HEART SOUNDS: S1 normal heart sound present and S2 normal heart sound present PERIPHERAL PULSES: Peripheral pulses 2+ throughout GI: COMMON NORMALS: Normal to inspection, nondistended, normoactive bowel sounds present, Soft to palpation, No hepatosplenomegaly present and no masses AUSCULTATION: Yes normoactive bowel sounds PALPATION: Yes Soft to palpation and Yes No hepatosplenomegaly present RECTAL EXAM: Yes deferred Extremity: COMMON NORMALS: no clubbing, cyanosis or edema and no pedal edema Neuro: SENSORIUM/ORIENTATION: No oriented to person, No oriented to place and No oriented to time Psych: COMMON NORMALS: mental status grossly normal Urinary Catheter Management^: Lamb: Cath Placed During This Visit: yes Reason for Continuing Indwelling Catheter: Other Urinary Catheter Date of Insertion: 05/23/21 Urinary Catheter Time of Insertion: 14:48 Data : 06/08/21 06:50 06/07/21 14:35 Micro: Microbiology 06/07/21 14:30 Blood Culture - Preliminary Blood SPECIMEN COLLECTED 06/07/21 14:35 Blood Culture - Preliminary Blood SPECIMEN COLLECTED A&P Assessment and plan (1) S/P percutaneous endoscopic gastrostomy (PEG) tube placement: Replaced on June 06 after patient had pulled out the PEG tube. Post pulling out as per surgery patient had contamination of food product/bile product. Post placement patient has had continued coffee-ground secretions of the PEG tube without any bowel movements. Continue Zosyn. Monitor for fevers. Check procalcitonin. If patient has fever will check blood cultures. For now keep n.p.o. For now do not use the PEG tube for feeds. Keep to gravity. Case discussed with Dr. Blackman. Status: Acute (2) Respiratory failure with hypoxia: Secondary to recent COVID-19 pneumonia. Has already finished full course of remdesivir with 1 dose of Actemra on May 23. Last dose of remdesivir on May 27. We will continue Decadron to finish a 14-day course. Oxygen supplementation keeping saturation more than 90%. Keep on isolation precautions till at least 14 days post last dose of remdesivir which is will be June 10. Pulmonary toilet. Duoneb Q6h, budesonide BID. Low suspicion of bacterial pneumonia for now. MRSA negative in the past. CTA consistent with PE. Status: Acute Qualifiers: Chronicity: acute Qualified Code(s): J96.01 - Acute respiratory failure with hypoxia (3) Pneumonia due to COVID-19 virus: Management as noted above Status: Acute (4) Pulmonary embolism: Already given Eliquis 10 mg twice daily for 7 days. For now continue Eliquis 5 mg twice daily. Bleeding precautions. Continue to monitor hemoglobin. Status: Acute Qualifiers: Acute cor pulmonale presence: without acute cor pulmonale Chronicity: acute Pulmonary embolism type: unspecified Qualified Code(s): I26.99 - Other pulmonary embolism without acute cor pulmonale (5) Sepsis: Resolved. Patient continues to have persistent leukocytosis but does not have any fevers. Check procalcitonin. If develops fever will check blood cultures. Leukocytosis most likely secondary to steroids versus reactive secondary to pulling out of PEG tube. Status: Acute Qualifiers: Sepsis acute organ dysfunction status: unspecified Sepsis type: sepsis due to unspecified organism Qualified Code(s): A41.9 - Sepsis, unspecified organism (6) Developmental delay, profound: Patient with baseline profound developmental delay, nonverbal Status: Acute (7) Protein calorie malnutrition: Status: Acute Additional A&P Information Seizure disorder Continue Keppra for history of seizures Full code Eliquis for DVT prophylaxis Protonix 40 mg twice daily for PUD prophylaxis. Oral care. Start on D5 NS at 50 cc/h as patient is NPO. Disposition: Arranging placement to SNF, no longer qualifies for [facility]. Attestations Medical Necessity Statement*: Requires further hospitalization for management of dislodged PEG tube which was recently placed on June 06, possible intra-abdominal infection, hypoxic respiratory failure secondary recent COVID-19 pneumonia, pulmonary embolism. Time Spent in Patient Care: Greater than 35 minutes (>than 50% of time spent in counselling and/or direct pt care on unit). 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
--- NOTE | 2021-06-07 18:37 | PC.NURSE ---
Per Dr Crisostomo, restart Sarthak at scheduled time.
[2021-06-07 20:32] LABS: Glucose Point of Care 161 mg/dL (70-110)
[2021-06-07 20:58] LABS: Anion Gap 18.7 (5-19); Blood Urea Nitrogen 30 mg/dL (8-23); Calcium 8.3 mg/dL (8.5-10.5); Carbon Dioxide 27 mmol/L (22-29); Chloride 102 mmol/L (98-107); Glomerular Filtration Rate 113.5 mL/min (90-130); Glucose 128 mg/dL (65-115); Osmolality Calculated 306 mOsm/kg (285-295); Potassium 3.7 mmol/L (3.5-5.1); Sodium 144 mmol/L (136-145)
[2021-06-07] MEDS: atorvastatin 40 mg Tablet 20 MG PO (20:58)
[2021-06-08] VITALS (10 sets, daily range): BP systolic 107–113; BP diastolic 64–78; PULSE 97–116; RESP 16–20; TEMP 36.7–37.2; O2SAT 89–97
[2021-06-08] MEDS: levETIRAcetam 500 mg Tablet 1500 MG PEG-TUBE ×2 (03:56→15:56)
[2021-06-08] MEDS: apixaban 5 mg Tablet PEG-TUBE ×2 (05:53→15:56)
[2021-06-08] MEDS: piperacillin-tazobactam 3.375 GM in sodium chloride 0.9% (plus) 100 ML IV ×3 (06:12→22:00)
[2021-06-08 06:17] LABS: Glucose Point of Care 149 mg/dL (70-110)
[2021-06-08 07:15] LABS: Basophils # 0.1 10^3/uL (0.0-0.1); Basophils % 0.3 %; Eosinophils # 0.1 10^3/uL (0.0-0.8); Eosinophils % 0.6 %; Hematocrit 43.6 % (42.0-52.0); Hemoglobin 14.4 g/dL (11.7-16.6); Lymphocytes # 1.3 10^3/uL (0.8-4.8); Lymphocytes % 6.9 %; Mean Corpuscular Hemoglobin 30.8 pg (28.0-34.0); Mean Corpuscular Volume 93.4 fL (80-94); Mean Platelet Volume 12.2 fL (7.4-10.4); Monocytes # 1.3 10^3/uL (0.2-0.9); Monocytes % 6.5 %; Neutrophils # 16.65 10^3/uL (1.8-7.7); Neutrophils % 85.2 %; Nucleated Red Blood Cells % 0 %; Platelet Count 220 10^3/cmm (130-400); Red Blood Count 4.67 10^6/uL (4.1-5.3); White Blood Count 19.5 10^3/uL (4.0-10.0)
[2021-06-08] MEDS: dextrose 5%-sod chloride 0.9% 1,000 ML 75 ML IV ×2 (07:41→22:01)
[2021-06-08] MEDS: dexamethasone 4 mg Tablet 6 MG PEG-TUBE (07:42)
[2021-06-08] MEDS: zinc gluconate 50 mg Tablet PO (07:43)
[2021-06-08] MEDS: PARoxetine 20 mg Tablet 10 MG PO (07:43)
[2021-06-08] MEDS: pantoprazole DR 40 mg Tablet PO ×2 (07:43→15:56)
[2021-06-08] MEDS: cholecalciferol (vitamin D3) 1,000 unit Tablet 1000 UNIT PO (07:43)
[2021-06-08 11:08] LABS: Glucose Point of Care 174 mg/dL (70-110)
--- NOTE | 2021-06-08 11:57 | PC.NURSE ---
patient's de la cruz catheter is leaking, Dr Marin notified. Per Dr Marin, change de la cruz catheter out. [employer] Ware[employer] changed de la cruz catheter and bag.
--- NOTE | 2021-06-08 13:18 | PC.NURSE ---
Rcvd verbal order from Dr Marin to keep HOB elevated 25 degrees, Keep PEG to gravity and use Chlorhexidine swabs of patient's mouth.
--- NOTE | 2021-06-08 14:01 | P.PN_ITS ---
Subjective Subjective: Interval history: No major issues overnight, patient had coffee- ground emesis yesterday Vitals/I&O/Wt Last Vital Signs Temp 98.8 F 06/08/21 11:31 Pulse 97 06/08/21 11:31 Resp 20 H 06/08/21 11:31 BP 113/78 06/08/21 11:31 Pulse Ox 97 06/08/21 11:31 06/07/21 06/08/21 06/08/21 22:59 06:59 14:59 Intake Total 50 / 150 50 / 150 1100 / 1100 Output Total 900 / 1300 400 / 1300 200 / 200 Balance -850 / -1150 -350 / -1150 900 / 900 Weight last 48 hrs Weight 142 lb 1.6 oz Weight 145 lb 5 oz Physical Exam Narrative: EXAM NARRATIVE: Abdomen: Soft, nondistended, PEG tube in the left upper quadrant Urinary Catheter Management^: Lamb: Cath Placed During This Visit: yes Reason for Continuing Indwelling Catheter: Other Urinary Catheter Date of Insertion: 05/23/21 Urinary Catheter Time of Insertion: 14:48 Data : 06/08/21 06:50 06/07/21 14:35 Micro: Microbiology 06/07/21 14:30 Blood Culture - Preliminary Blood SPECIMEN COLLECTED 06/07/21 14:35 Blood Culture - Preliminary Blood SPECIMEN COLLECTED A&P Assessment and plan (1) S/P percutaneous endoscopic gastrostomy (PEG) tube placement: 66-year-old male, unable to communicate had a PEG tube placed on 05/27/2021. Patient pulled the tube out and a new PEG tube was placed 06/06/2021. Continue PEG to gravity to for 24 more hours, can start trophic feeds tomorrow Continue PPI therapy, hemoglobin has remained stable WBC stable, has been afebrile: Continue IV Zosyn Abdominal x-ray shows ileus, hopefully bowel movements tomorrow once tube feeds are restarted Status: Acute Attestations Medical Necessity Statement*: Status post PEG tube placement Coding Level of Care Code Acute Utilization Reviewer for Chg Fwd Diagnoses S/P percutaneous endoscopic gastrostomy (PEG) tube placement Z93.1
--- NOTE | 2021-06-08 15:05 | PC.NUTR ---
Nutrition follow up: Currently on day 3 of no kcal/protein intake (stopped 06/06/21 d/t pt pulling out PEG). Noted plan per Dr. Blackman's note to initiate trophic feeds tomorrow. If well tolerated, recommend to resume previous TF- Pulmocare at 55 ml/hr with 250 ml H2O flushes q 6 hrs to provide 1980 kcal, 83 g protein, and 2036 ml H2O. Increase gradually to goal per MD discretion. Recommend monitoring for residuals, tolerance, and labs, including Na, K, glucose, and renal labs. See RD assessments for further details.
[2021-06-08 17:50] LABS: Glucose Point of Care 161 mg/dL (70-110)
--- NOTE | 2021-06-08 18:02 | PM.PN ---
Subjective Subjective: Interval history: No acute events overnight. Patient has remained hemodynamically stable and afebrile currently on 4 L saturating 94%. Remains comfortable in bed. PEG tube still to gravity putting out less coffee-ground discharge. Hemoglobin has remained stable. Medications: Reviewed: Yes Vitals/I&O/Wt Last Vital Signs Temp 98.9 F 06/08/21 16:00 Pulse 101 H 06/08/21 16:46 Resp 16 06/08/21 16:46 BP 110/72 06/08/21 16:00 Pulse Ox 89 L 06/08/21 16:46 06/08/21 06/08/21 06/08/21 06:59 14:59 22:59 Intake Total 50 / 150 1100 / 1100 Output Total 400 / 1300 200 / 200 500 / 700 Balance -350 / -1150 900 / 900 -500 / 400 Weight last 48 hrs Weight 64.455 kg Weight 65.913 kg Physical Exam Const: COMMON NORMALS: no acute distress ORIENTATION/CONSCIOUSNESS: Yes awake; not oriented to person, not oriented to place and not oriented to time HENMT: COMMON NORMALS: normocephalic and atraumatic HEAD & SCALP: normocephalic and atraumatic Eye: COMMON NORMALS: Equal, round and reactive pupils present PUPIL: Yes Equal, round and reactive pupils present Chest: COMMONS NORMALS: normal inspection of the chest Resp: COMMON NORMALS: normal respiratory effort, No retractions, No use of accessory muscles and clear to auscultation bilaterally AUSCULTATION: clear to auscultation bilaterally and diminished lung sounds (Diminished lung sounds in the lung shell) Cardio: COMMON NORMALS: regular rate, regular rhythm, S1 normal heart sound present, S2 normal heart sound present, No gallops present (Cardio), No murmurs present (Cardio), No rub (Cardio) and Peripheral pulses 2+ throughout RATE: regular rate RHYTHM: regular rhythm HEART SOUNDS: S1 normal heart sound present and S2 normal heart sound present PERIPHERAL PULSES: Peripheral pulses 2+ throughout GI: COMMON NORMALS: Normal to inspection, nondistended, normoactive bowel sounds present, Soft to palpation, No hepatosplenomegaly present and no masses AUSCULTATION: Yes normoactive bowel sounds PALPATION: Yes Soft to palpation and Yes No hepatosplenomegaly present RECTAL EXAM: Yes deferred Extremity: COMMON NORMALS: no clubbing, cyanosis or edema and no pedal edema Neuro: SENSORIUM/ORIENTATION: No oriented to person, No oriented to place and No oriented to time Psych: COMMON NORMALS: mental status grossly normal Urinary Catheter Management^: Lamb: Cath Placed During This Visit: yes Reason for Continuing Indwelling Catheter: Other Urinary Catheter Date of Insertion: 05/23/21 Urinary Catheter Time of Insertion: 14:48 Data : 06/08/21 06:50 06/07/21 14:35 Micro: Microbiology 06/07/21 14:30 Blood Culture - Preliminary Blood NEGATIVE TO DATE 06/07/21 14:35 Blood Culture - Preliminary Blood NEGATIVE TO DATE A&P Assessment and plan (1) S/P percutaneous endoscopic gastrostomy (PEG) tube placement: Replaced on June 06 after patient had pulled out the PEG tube. Post pulling out as per surgery patient had contamination of food product/bile product. Post placement patient has had continued coffee-ground secretions of the PEG tube without any bowel movements. Continue Zosyn. Monitor for fevers. Procalcitonin negative. If patient has fever will check blood cultures and would possibly need abdominal washout. For now keep n.p.o. For now do not use the PEG tube for feeds. Keep to gravity. Case discussed with Dr. Blackman. Status: Acute (2) Respiratory failure with hypoxia: Secondary to recent COVID-19 pneumonia. Has already finished full course of remdesivir with 1 dose of Actemra on May 23. Last dose of remdesivir on May 27. Wean Decadron as patient has received more than 14 days of steroids. Start on Decadron 3 mg daily for next year and then stop. Oxygen supplementation keeping saturation more than 90%. Keep on isolation precautions till at least 14 days post last dose of remdesivir which is will be June 10. Pulmonary toilet. Duoneb Q6h, budesonide BID. Low suspicion of bacterial pneumonia for now. MRSA negative in the past. CTA consistent with PE. Status: Acute Qualifiers: Chronicity: acute Qualified Code(s): J96.01 - Acute respiratory failure with hypoxia (3) Pneumonia due to COVID-19 virus: Management as noted above Status: Acute (4) Pulmonary embolism: Already given Eliquis 10 mg twice daily for 7 days. For now continue Eliquis 5 mg twice daily. Bleeding precautions. Continue to monitor hemoglobin. Status: Acute Qualifiers: Acute cor pulmonale presence: without acute cor pulmonale Chronicity: acute Pulmonary embolism type: unspecified Qualified Code(s): I26.99 - Other pulmonary embolism without acute cor pulmonale (5) Sepsis: Resolved. Patient continues to have persistent leukocytosis but does not have any fevers. If develops fever will check blood cultures. Leukocytosis most likely secondary to steroids versus reactive secondary to pulling out of PEG tube. Status: Acute Qualifiers: Sepsis type: sepsis due to unspecified organism Sepsis acute organ dysfunction status: unspecified Qualified Code(s): A41.9 - Sepsis, unspecified organism (6) Developmental delay, profound: Patient with baseline profound developmental delay, nonverbal Status: Acute (7) Protein calorie malnutrition: Status: Acute Additional A&P Information Seizure disorder Continue Keppra for history of seizures Full code Eliquis for DVT prophylaxis Protonix 40 mg twice daily for PUD prophylaxis. Oral care with chlorhexidine twice daily. Continue with D5 NS at 50 cc/h as patient is NPO. Disposition: Arranging placement to SNF, no longer qualifies for [facility]. Plan for today: Continue to monitor for fevers, once PEG tube output decreases can plan to start on diet after healing of recent PEG tube insertion site. Continue to monitor hemoglobin. Attestations Medical Necessity Statement*: Requires further hospitalization for management of dislodged PEG tube which was recently placed on June 06, possible intra-abdominal infection, hypoxic respiratory failure secondary recent COVID-19 pneumonia, pulmonary embolism. Time Spent in Patient Care: Greater than 35 minutes (>than 50% of time spent in counselling and/or direct pt care on unit). Coding Level of Care Code Acute Automatic Nailing Machine Feeder for Chg Fwd Diagnoses S/P percutaneous endoscopic gastrostomy (PEG) tube placement Z93.1 Respiratory failure with hypoxia J96.01 Chronicity: acute Pneumonia due to COVID-19 virus U07.1; J12.82 Pulmonary embolism I26.99 Acute cor pulmonale presence: without acute cor pulmonale Chronicity: acute Pulmonary embolism type: unspecified Sepsis A41.9 Sepsis type: sepsis due to unspecified organism Sepsis acute organ dysfunction status: unspecified Developmental delay, profound R62.50 Protein calorie malnutrition E46
[2021-06-08] MEDS: atorvastatin 40 mg Tablet 20 MG PO (22:00)
[2021-06-08 22:49] LABS: Glucose Point of Care 130 mg/dL (70-110)
[2021-06-09] VITALS (12 sets, daily range): BP systolic 100–130; BP diastolic 54–73; PULSE 98–129; RESP 18–24; TEMP 36.7–37; O2SAT 88–97
[2021-06-09] MEDS: levETIRAcetam 500 mg Tablet 1500 MG PEG-TUBE ×2 (04:15→16:29)
[2021-06-09] MEDS: apixaban 5 mg Tablet PEG-TUBE ×2 (04:16→16:29)
[2021-06-09] MEDS: piperacillin-tazobactam 3.375 GM in sodium chloride 0.9% (plus) 100 ML IV ×3 (06:13→23:21)
[2021-06-09 06:29] LABS: Glucose Point of Care 121 mg/dL (70-110)
[2021-06-09 09:03] LABS: Basophils # 0.1 10^3/uL (0.0-0.1); Basophils % 0.3 %; Eosinophils # 0.1 10^3/uL (0.0-0.8); Eosinophils % 0.6 %; Hematocrit 42.5 % (42.0-52.0); Hemoglobin 12.9 g/dL (11.7-16.6); Lymphocytes # 1.5 10^3/uL (0.8-4.8); Lymphocytes % 7.2 %; Mean Corpuscular HGB Conc 30.4 g/dL (30.0-36.0); Mean Corpuscular Hemoglobin 30.8 pg (28.0-34.0); Mean Corpuscular Volume 101.4 fL (80-94); Mean Platelet Volume 11.9 fL (7.4-10.4); Monocytes # 1.3 10^3/uL (0.2-0.9); Neutrophils # 18.15 10^3/uL (1.8-7.7); Neutrophils % 85.3 %; Nucleated Red Blood Cells % 0 %; Platelet Count 262 10^3/cmm (130-400); Red Blood Count 4.19 10^6/uL (4.1-5.3); Red Cell Distribution Width 15.5 % (12.1-15.1); White Blood Count 21.3 10^3/uL (4.0-10.0)
[2021-06-09 09:33] LABS: Alanine Aminotransferase 47 U/L (0-41); Albumin Level 2.9 g/dL (3.5-5.2); Alkaline Phosphatase 74 IU/L (40-130); Blood Urea Nitrogen 31 mg/dL (8-23); Calcium 8.3 mg/dL (8.5-10.5); Carbon Dioxide 31 mmol/L (22-29); Chloride 111 mmol/L (98-107); Globulin 2.7 g/dL (1.3-4.6); Glomerular Filtration Rate 135.6 mL/min (90-130); Glucose 135 mg/dL (65-115); Osmolality Calculated 327 mOsm/kg (285-295); Sodium 154 mmol/L (136-145); Total Bilirubin 0.5 mg/dL (0.15-1.2); Total Protein 5.6 g/dL (6.6-8.7)
[2021-06-09 09:35] LABS: Anion Gap 15.2 (5-19); Aspartate Amino Transferase 24 U/L (0-40); Potassium 3.2 mmol/L (3.5-5.1)
[2021-06-09 09:40] LABS: Iron 62 ug/dL (59-158); Thyroid Stimulating Hormone 0.33 uIU/mL (0.27-4.20)
[2021-06-09 09:54] LABS: Percent Saturation 36.9 % (20-50); Total Iron Binding Capacity 168 mcg/dl; Unsaturated Iron Binding 106 ug/dL (112-347)
[2021-06-09] MEDS: ipratropium-albuterol 3 mL Neb INHALATION (09:54)
[2021-06-09] MEDS: budesonide 0.5 mg/2 mL Neb INHALATION ×2 (09:54→20:52)
[2021-06-09 10:49] LABS: Alanine Aminotransferase 42 U/L (0-41); Alkaline Phosphatase 78 IU/L (40-130); Blood Urea Nitrogen 30 mg/dL (8-23); Calcium 8.2 mg/dL (8.5-10.5); Carbon Dioxide 28 mmol/L (22-29); Chloride 110 mmol/L (98-107); Globulin 2.5 g/dL (1.3-4.6); Glomerular Filtration Rate 135.6 mL/min (90-130); Glucose 130 mg/dL (65-115); Osmolality Calculated 328 mOsm/kg (285-295); Sodium 155 mmol/L (136-145); Total Bilirubin 0.5 mg/dL (0.15-1.2); Total Protein 5.5 g/dL (6.6-8.7)
[2021-06-09 10:58] LABS: Anion Gap 20.1 (5-19); Potassium 3.1 mmol/L (3.5-5.1)
[2021-06-09 11:10] LABS: Aspartate Amino Transferase 22 U/L (0-40)
[2021-06-09] MEDS: zinc gluconate 50 mg Tablet PO (11:41)
[2021-06-09] MEDS: cholecalciferol (vitamin D3) 1,000 unit Tablet 1000 UNIT PO (11:42)
[2021-06-09] MEDS: PARoxetine 20 mg Tablet 10 MG PO (11:42)
[2021-06-09] MEDS: dexamethasone 4 mg Tablet 3 MG PO (11:42)
[2021-06-09] MEDS: pantoprazole DR 40 mg Tablet PO ×2 (11:42→16:29)
[2021-06-09 11:57] LABS: Glucose Point of Care 125 mg/dL (70-110)
--- NOTE | 2021-06-09 12:09 | PC.NURSE ---
supervisor newspaper deliveries notified pt needs ultrasound guided IV.
--- NOTE | 2021-06-09 14:32 | PM.PN ---
Subjective Subjective: Interval history: No acute events overnight patient has remained hemodynamically stable. Echocardiogram the morning. On room air saturating 88 to 89%. Looks dehydrated today. Rectal tube in place without any output. PEG tube has just coffee-ground discharge. Medications: Reviewed: Yes Vitals/I&O/Wt Last Vital Signs Temp 98.6 F 06/09/21 12:00 Pulse 129 H 06/09/21 12:00 Resp 24 H 06/09/21 12:00 BP 105/54 06/09/21 12:00 Pulse Ox 89 L 06/09/21 12:00 06/08/21 06/09/21 06/09/21 22:59 06:59 14:59 Intake Total 1100 / 2200 699.583 / 2899.583 Output Total 500 / 700 500 / 1200 Balance 600 / 1500 199.583 / 1699.583 Weight last 48 hrs Weight 64.455 kg Weight 64.455 kg Physical Exam Const: COMMON NORMALS: no acute distress ORIENTATION/CONSCIOUSNESS: Yes awake; not oriented to person, not oriented to place and not oriented to time HENMT: COMMON NORMALS: normocephalic and atraumatic HEAD & SCALP: normocephalic and atraumatic Eye: COMMON NORMALS: Equal, round and reactive pupils present PUPIL: Yes Equal, round and reactive pupils present Chest: COMMONS NORMALS: normal inspection of the chest Resp: COMMON NORMALS: normal respiratory effort, No retractions, No use of accessory muscles and clear to auscultation bilaterally AUSCULTATION: clear to auscultation bilaterally and diminished lung sounds (Diminished lung sounds in the lung shell) Cardio: COMMON NORMALS: regular rate, regular rhythm, S1 normal heart sound present, S2 normal heart sound present, No gallops present (Cardio), No murmurs present (Cardio), No rub (Cardio) and Peripheral pulses 2+ throughout RATE: regular rate RHYTHM: regular rhythm HEART SOUNDS: S1 normal heart sound present and S2 normal heart sound present PERIPHERAL PULSES: Peripheral pulses 2+ throughout GI: COMMON NORMALS: Normal to inspection, nondistended, normoactive bowel sounds present, Soft to palpation, No hepatosplenomegaly present and no masses AUSCULTATION: Yes normoactive bowel sounds PALPATION: Yes Soft to palpation and Yes No hepatosplenomegaly present RECTAL EXAM: Yes deferred Extremity: COMMON NORMALS: no clubbing, cyanosis or edema and no pedal edema Neuro: SENSORIUM/ORIENTATION: No oriented to person, No oriented to place and No oriented to time Psych: COMMON NORMALS: mental status grossly normal Urinary Catheter Management^: Lamb: Cath Placed During This Visit: yes Reason for Continuing Indwelling Catheter: Other Urinary Catheter Date of Insertion: 05/23/21 Urinary Catheter Time of Insertion: 14:48 Data : 06/09/21 08:43 06/09/21 08:43 Micro: Microbiology 06/07/21 14:30 Blood Culture - Preliminary Blood NEGATIVE TO DATE 06/07/21 14:35 Blood Culture - Preliminary Blood NEGATIVE TO DATE A&P Assessment and plan (1) S/P percutaneous endoscopic gastrostomy (PEG) tube placement: Replaced on June 06 after patient had pulled out the PEG tube. Post pulling out as per surgery patient had contamination of food product/bile product. Post placement patient has had continued coffee-ground secretions of the PEG tube without any bowel movements. Amount decreasing. Continue Zosyn. Monitor for fevers. Procalcitonin negative. If patient has fever will check blood cultures and would possibly need abdominal washout. Case discussed with Dr. Blackman. Start on tube feeds at 15 cc/h increasing 15 cc every 4 hours with a goal of 55 cc. Free water flushes to 50 cc every 6 hour. Remove rectal tube. Status: Acute (2) Respiratory failure with hypoxia: Secondary to recent COVID-19 pneumonia. Has already finished full course of remdesivir with 1 dose of Actemra on May 23. Last dose of remdesivir on May 27. Wean Decadron as patient has received more than 14 days of steroids. Start on Decadron 3 mg daily for next year and then stop. Oxygen supplementation keeping saturation more than 90%. Keep on isolation precautions till at least 14 days post last dose of remdesivir which is will be June 10. Pulmonary toilet. Ipratropium 3 times daily, Xopenex every 6 hours for tachycardia, budesonide BID. Lasix 20 mg IV stat. Low suspicion of bacterial pneumonia for now. MRSA negative in the past. CTA consistent with PE. Status: Acute Qualifiers: Chronicity: acute Qualified Code(s): J96.01 - Acute respiratory failure with hypoxia (3) Pneumonia due to COVID-19 virus: Management as noted above Status: Acute (4) Pulmonary embolism: Already given Eliquis 10 mg twice daily for 7 days. For now continue Eliquis 5 mg twice daily. Bleeding precautions. Continue to monitor hemoglobin. Status: Acute Qualifiers: Acute cor pulmonale presence: without acute cor pulmonale Chronicity: acute Pulmonary embolism type: unspecified Qualified Code(s): I26.99 - Other pulmonary embolism without acute cor pulmonale (5) Sepsis: Resolved. Patient continues to have persistent leukocytosis but does not have any fevers. If develops fever will check blood cultures. Leukocytosis most likely secondary to steroids versus reactive secondary to pulling out of PEG tube. Status: Acute Qualifiers: Sepsis type: sepsis due to unspecified organism Sepsis acute organ dysfunction status: unspecified Qualified Code(s): A41.9 - Sepsis, unspecified organism (6) Developmental delay, profound: Patient with baseline profound developmental delay, nonverbal Status: Acute (7) Protein calorie malnutrition: Status: Acute (8) Hypernatremia: Free water deficit 4.1 L. Switch fluids from D5 NS to D5 at 75 cc/h. Free water flushes to 50 cc every 6 hours. Repeat BMP tomorrow. Status: Acute Additional A&P Information Seizure disorder Continue Keppra for history of seizures Full code Eliquis for DVT prophylaxis Protonix 40 mg twice daily for PUD prophylaxis. Oral care with chlorhexidine twice daily. Continue with D5 NS at 50 cc/h as patient is NPO. Disposition: Arranging placement to SNF, no longer qualifies for [facility]. Plan for today: Continue to monitor for fevers, once PEG tube output decreases can plan to start on diet after healing of recent PEG tube insertion site. Continue to monitor hemoglobin. Attestations Medical Necessity Statement*: Requires further hospitalization for postop management of replaced PEG tube because of dislodgment, hypoxia, hypernatremia requiring free water flushes and IV fluids. Time Spent in Patient Care: Greater than 35 minutes (>than 50% of time spent in counselling and/or direct pt care on unit). Coding Level of Care Code Acute Food And Beverage Controller for Chg Fwd Diagnoses S/P percutaneous endoscopic gastrostomy (PEG) tube placement Z93.1 Respiratory failure with hypoxia J96.01 Chronicity: acute Pneumonia due to COVID-19 virus U07.1; J12.82 Pulmonary embolism I26.99 Acute cor pulmonale presence: without acute cor pulmonale Chronicity: acute Pulmonary embolism type: unspecified Sepsis A41.9 Sepsis type: sepsis due to unspecified organism Sepsis acute organ dysfunction status: unspecified Developmental delay, profound R62.50 Protein calorie malnutrition E46 Hypernatremia E87.0
--- NOTE | 2021-06-09 14:41 | PM.PN ---
Subjective Subjective: Interval history: Patient has been stable, drainage has been not significant as per nursing staff. No emesis Vitals/I&O/Wt Last Vital Signs Temp 98.6 F 06/09/21 12:00 Pulse 129 H 06/09/21 12:00 Resp 24 H 06/09/21 12:00 BP 105/54 06/09/21 12:00 Pulse Ox 89 L 06/09/21 12:00 06/08/21 06/09/21 06/09/21 22:59 06:59 14:59 Intake Total 1100 / 2899.583 699.583 / 2899.583 Output Total 500 / 1200 500 / 1200 Balance 600 / 1699.583 199.583 / 1699.583 Weight last 48 hrs Weight 142 lb 1.6 oz Weight 142 lb 1.6 oz Physical Exam Narrative: EXAM NARRATIVE: Abdomen: Soft, PEG tube left upper quadrant Urinary Catheter Management^: Lamb: Cath Placed During This Visit: yes Reason for Continuing Indwelling Catheter: Other Urinary Catheter Date of Insertion: 05/23/21 Urinary Catheter Time of Insertion: 14:48 Data : 06/09/21 08:43 06/09/21 08:43 Micro: Microbiology 06/07/21 14:30 Blood Culture - Preliminary Blood NEGATIVE TO DATE 06/07/21 14:35 Blood Culture - Preliminary Blood NEGATIVE TO DATE A&P Assessment and plan (1) S/P percutaneous endoscopic gastrostomy (PEG) tube placement: 66-year-old male, unable to communicate had a PEG tube placed on 05/27/2021. Patient pulled the tube out and a new PEG tube was placed 06/06/2021. Start trophic feeds at 10 cc/h, do not increase rate tonight Continue PPI therapy, hemoglobin has remained stable Continue IV Zosyn for 7 days Abdominal x-ray shows ileus, hopefully bowel movements tomorrow once tube feeds are restarted Status: Acute Attestations Medical Necessity Statement*: As per primary Coding Level of Care Code Acute Marketing Assistant Manager for Chg Fwd Diagnoses S/P percutaneous endoscopic gastrostomy (PEG) tube placement Z93.1
[2021-06-09] MEDS: ipratropium 0.5 mg/2.5 mL Neb INHALATION ×2 (15:14→20:52)
[2021-06-09] MEDS: levalbuterol 0.63 mg/3 mL Neb INHALATION ×2 (15:14→20:52)
[2021-06-09 15:34] LABS: NT Pro B Type Natriuretic Pept 188 pg/mL (0-125)
[2021-06-09] MEDS: metoprolol tartrate 25 mg Tablet PO ×2 (16:28→20:44)
[2021-06-09] MEDS: potassium chloride oral liq 20 mEq/15 mL UDC 80 MEQ PO (16:29)
[2021-06-09] MEDS: chlorhexidine gluconate 0.12% Btl 473 mL 15 ML MUCOUS MEM (16:53)
[2021-06-09] MEDS: dextrose 5% 1,000 ML 75 ML IV (17:51)
[2021-06-09 18:23] LABS: Glucose Point of Care 132 mg/dL (70-110)
--- NOTE | 2021-06-09 18:30 | PC.NURSE ---
Tube feedings started with Ensure at 10 mL/hr per Dr. Blackman verbal order. Verbal orders received from Dr. Marin to increase feed by 15 mL/hr every 4 hours with 250 mL free water flush every 6 hours.
[2021-06-09] MEDS: atorvastatin 40 mg Tablet 20 MG PO (20:44)
[2021-06-09 21:00] LABS: Glucose Point of Care 143 mg/dL (70-110)
--- NOTE | 2021-06-09 23:37 | PC.NURSE ---
FEED INCREASE: AT 2230 THE PATIENT'S FEED AMOUNT WAS INCREASED FROM 10 ML/HR TO 25 ML/HR.
[2021-06-10] VITALS (16 sets, daily range): BP systolic 99–148; BP diastolic 68–78; PULSE 72–108; RESP 16–18; TEMP 36.2–37.1; O2SAT 89–93
[2021-06-10] MEDS: levalbuterol 0.63 mg/3 mL Neb INHALATION ×4 (03:16→20:24)
[2021-06-10] MEDS: levETIRAcetam 500 mg Tablet 1500 MG PEG-TUBE ×2 (04:00→15:28)
[2021-06-10] MEDS: apixaban 5 mg Tablet PEG-TUBE ×2 (05:53→17:57)
[2021-06-10 06:33] LABS: Glucose Point of Care 145 mg/dL (70-110)
[2021-06-10 07:55] LABS: Basophils # 0.1 10^3/uL (0.0-0.1); Basophils % 0.5 %; Eosinophils # 0.4 10^3/uL (0.0-0.8); Eosinophils % 2.1 %; Hematocrit 33.7 % (42.0-52.0); Hemoglobin 10.5 g/dL (11.7-16.6); Lymphocytes # 1.8 10^3/uL (0.8-4.8); Lymphocytes % 10.6 %; Mean Corpuscular HGB Conc 31.2 g/dL (30.0-36.0); Mean Corpuscular Hemoglobin 30.4 pg (28.0-34.0); Mean Corpuscular Volume 97.7 fL (80-94); Mean Platelet Volume 11.6 fL (7.4-10.4); Monocytes % 5.6 %; Neutrophils % 80.7 %; Nucleated Red Blood Cells % 0.1 %; Platelet Count 273 10^3/cmm (130-400); Red Blood Count 3.45 10^6/uL (4.1-5.3); Red Cell Distribution Width 15.8 % (12.1-15.1); White Blood Count 16.9 10^3/uL (4.0-10.0)
[2021-06-10] MEDS: budesonide 0.5 mg/2 mL Neb INHALATION ×2 (08:07→20:24)
[2021-06-10] MEDS: ipratropium 0.5 mg/2.5 mL Neb INHALATION ×3 (08:07→20:24)
[2021-06-10 08:18] LABS: Alanine Aminotransferase 34 U/L (0-41); Albumin Level 2.9 g/dL (3.5-5.2); Alkaline Phosphatase 88 IU/L (40-130); Anion Gap 13.7 (5-19); Aspartate Amino Transferase 16 U/L (0-40); Blood Urea Nitrogen 37 mg/dL (8-23); Calcium 8.5 mg/dL (8.5-10.5); Carbon Dioxide 29 mmol/L (22-29); Chloride 116 mmol/L (98-107); Globulin 2.3 g/dL (1.3-4.6); Glomerular Filtration Rate 113.5 mL/min (90-130); Glucose 148 mg/dL (65-115); Osmolality Calculated 331 mOsm/kg (285-295); Potassium 3.7 mmol/L (3.5-5.1); Sodium 155 mmol/L (136-145); Total Bilirubin 0.5 mg/dL (0.15-1.2); Total Protein 5.2 g/dL (6.6-8.7)
[2021-06-10] MEDS: pantoprazole DR 40 mg Tablet PO ×2 (08:24→17:57)
[2021-06-10] MEDS: PARoxetine 20 mg Tablet 10 MG PO (08:24)
[2021-06-10] MEDS: metoprolol tartrate 25 mg Tablet PO ×2 (08:24→21:53)
[2021-06-10] MEDS: zinc gluconate 50 mg Tablet PO (08:24)
[2021-06-10] MEDS: cholecalciferol (vitamin D3) 1,000 unit Tablet 1000 UNIT PO (08:24)
[2021-06-10] MEDS: chlorhexidine gluconate 0.12% Btl 473 mL 15 ML MUCOUS MEM ×2 (08:25→17:58)
[2021-06-10] MEDS: dexamethasone 4 mg Tablet 3 MG PO (08:25)
[2021-06-10 11:39] LABS: Glucose Point of Care 122 mg/dL (70-110)
--- NOTE | 2021-06-10 12:36 | SUR.PREOP ---
TIME OUT FOR PICC LINE INSERTION/ POSSIBLE MIDLINE
--- NOTE | 2021-06-10 12:46 | SUR.PHASEI ---
MIDLINE NOTE Discussed midline with Tomas d/t inability to advance PICC up the bascilic vein from the left side and that the patient has no access from the right side d/t contractures. Midline placement is okay per Tomas. Noted and placed as such. No complications noted.
[2021-06-10] MEDS: dextrose 5% 1,000 ML 75 ML IV (13:13)
--- NOTE | 2021-06-10 14:04 | PM.PN ---
Subjective Subjective: Interval history: Tube feeds at 55 cc/h, WBC down to 16.9 Vitals/I&O/Wt Last Vital Signs Temp 98.7 F 06/10/21 07:32 Pulse 91 06/10/21 14:03 Resp 18 06/10/21 13:59 BP 99/68 06/10/21 07:32 Pulse Ox 91 06/10/21 13:59 06/09/21 06/10/21 06/10/21 22:59 06:59 14:59 Intake Total 390 / 390 2501.25 / 2501.25 Output Total 100 / 750 600 / 750 Balance 290 / -360 -600 / -360 2501.25 / 2501.25 Weight last 48 hrs Weight 141 lb Weight 142 lb 1.6 oz Physical Exam Narrative: EXAM NARRATIVE: Abdomen: Soft, nondistended, no guarding or rigidity, PEG tube left upper quadrant Urinary Catheter Management^: Lamb: Cath Placed During This Visit: yes Reason for Continuing Indwelling Catheter: Other Urinary Catheter Date of Insertion: 05/23/21 Urinary Catheter Time of Insertion: 14:48 Data : 06/10/21 07:49 06/10/21 07:49 A&P Assessment and plan (1) S/P percutaneous endoscopic gastrostomy (PEG) tube placement: 66-year-old male, unable to communicate had a PEG tube placed on 05/27/2021. Patient pulled the tube out and a new PEG tube was placed 06/06/2021. Tube feeds of 55 cc/h Continue PPI therapy, hemoglobin has remained stable Continue IV Zosyn for 7 days Status: Acute Attestations Medical Necessity Statement*: as per primary Coding Level of Care Code Acute Staffing Operations Manager for Chg Fwd Diagnoses S/P percutaneous endoscopic gastrostomy (PEG) tube placement Z93.1
[2021-06-10 14:16] LABS: Sodium 149 mmol/L (136-145)
[2021-06-10] MEDS: piperacillin-tazobactam 3.375 GM in sodium chloride 0.9% (plus) 100 ML IV ×2 (15:28→21:54)
--- NOTE | 2021-06-10 16:15 | PM.PN ---
Subjective Subjective: Interval history: In last 24 hours patient was started on PEG feeds. Patient was started on PEG feeds late in the evening yesterday. Patient did not get fluid for most of the day yesterday had as he had lost IV line. Patient has been on IV fluids since around 5 PM yesterday evening. Currently on examination on room air saturating 89 to 90%. When placed on 1 L saturating 93%. Nasal cannula being taped to his ears. Has had 1 bowel movements. Tolerating PEG tube feeds well.Currently running at goal. Patient did get midline placed today for continuous IV fluid management for hypernatremia. Medications: Reviewed: Yes Vitals/I&O/Wt Last Vital Signs Temp 98.3 F 06/10/21 15:59 Pulse 72 06/10/21 15:59 Resp 18 06/10/21 15:59 BP 143/72 06/10/21 15:59 Pulse Ox 93 06/10/21 15:59 06/10/21 06/10/21 06/10/21 06:59 14:59 22:59 Intake Total 2501.25 / 2501.25 Output Total 600 / 750 Balance -600 / -360 2501.25 / 2501.25 Weight last 48 hrs Weight 63.957 kg Weight 64.455 kg Physical Exam Const: COMMON NORMALS: no acute distress ORIENTATION/CONSCIOUSNESS: Yes awake; not oriented to person, not oriented to place and not oriented to time HENMT: COMMON NORMALS: normocephalic and atraumatic HEAD & SCALP: normocephalic and atraumatic Eye: COMMON NORMALS: Equal, round and reactive pupils present PUPIL: Yes Equal, round and reactive pupils present Chest: COMMONS NORMALS: normal inspection of the chest Resp: COMMON NORMALS: normal respiratory effort, No retractions, No use of accessory muscles and clear to auscultation bilaterally AUSCULTATION: clear to auscultation bilaterally and diminished lung sounds (Diminished lung sounds in the lung shell) Cardio: COMMON NORMALS: regular rate, regular rhythm, S1 normal heart sound present, S2 normal heart sound present, No gallops present (Cardio), No murmurs present (Cardio), No rub (Cardio) and Peripheral pulses 2+ throughout RATE: regular rate RHYTHM: regular rhythm HEART SOUNDS: S1 normal heart sound present and S2 normal heart sound present PERIPHERAL PULSES: Peripheral pulses 2+ throughout GI: COMMON NORMALS: Normal to inspection, nondistended, normoactive bowel sounds present, Soft to palpation, No hepatosplenomegaly present and no masses AUSCULTATION: Yes normoactive bowel sounds PALPATION: Yes Soft to palpation and Yes No hepatosplenomegaly present RECTAL EXAM: Yes deferred Extremity: COMMON NORMALS: no clubbing, cyanosis or edema and no pedal edema Neuro: SENSORIUM/ORIENTATION: No oriented to person, No oriented to place and No oriented to time Psych: COMMON NORMALS: mental status grossly normal Urinary Catheter Management^: Lamb: Cath Placed During This Visit: yes Reason for Continuing Indwelling Catheter: Other Urinary Catheter Date of Insertion: 05/23/21 Urinary Catheter Time of Insertion: 14:48 Data : 06/10/21 07:49 06/10/21 13:43 A&P Assessment and plan (1) Hypernatremia: Secondary dehydration. Free water deficit around 3.5 L. Continue with D5 at 75 cc/h. Free water flushes 250 cc every 6 hours. Sodium check every 4 hours to avoid overcorrection. Status: Acute (2) S/P percutaneous endoscopic gastrostomy (PEG) tube placement: Replaced on June 06 after patient had pulled out the PEG tube. Post pulling out as per surgery patient had contamination of food product/bile product. Post placement patient has had continued coffee-ground secretions of the PEG tube without any bowel movements. Amount decreasing. Continue Zosyn. Monitor for fevers. Procalcitonin negative. If patient has fever will check blood cultures and would possibly need abdominal washout. Case discussed with Dr. Blackman. Continue tube feeds with Ensure at goal of 55 cc/h. Free water flushes 250 cc every 6 hour. Remove rectal tube. Status: Acute (3) Respiratory failure with hypoxia: Secondary to recent COVID-19 pneumonia. Has already finished full course of remdesivir with 1 dose of Actemra on May 23. Last dose of remdesivir on May 27. Wean Decadron as patient has received more than 14 days of steroids. Stop Decadron tomorrow. Oxygen supplementation keeping saturation more than 90%. Remove isolation precautions as patient has been more than 2 weeks post completion of treatment for COVID-19 pneumonia. Pulmonary toilet. Ipratropium 3 times daily, Xopenex every 6 hours for tachycardia, budesonide BID. Lasix 20 mg IV stat. Low suspicion of bacterial pneumonia for now. MRSA negative in the past. CTA consistent with PE. Status: Acute Qualifiers: Chronicity: acute Qualified Code(s): J96.01 - Acute respiratory failure with hypoxia (4) Pulmonary embolism: Already given Eliquis 10 mg twice daily for 7 days. For now continue Eliquis 5 mg twice daily. Bleeding precautions. Continue to monitor hemoglobin. Status: Acute Qualifiers: Acute cor pulmonale presence: without acute cor pulmonale Chronicity: acute Pulmonary embolism type: unspecified Qualified Code(s): I26.99 - Other pulmonary embolism without acute cor pulmonale (5) Sepsis: Resolved. Patient continues to have persistent leukocytosis but does not have any fevers. If develops fever will check blood cultures. Leukocytosis most likely secondary to steroids versus reactive secondary to pulling out of PEG tube. Status: Acute Qualifiers: Sepsis type: sepsis due to unspecified organism Sepsis acute organ dysfunction status: unspecified Qualified Code(s): A41.9 - Sepsis, unspecified organism (6) Developmental delay, profound: Patient with baseline profound developmental delay, nonverbal Status: Acute (7) Protein calorie malnutrition: Started back on tube feeds. Dietitian consulted. Status: Acute (8) ARDS survivor: Status: Acute (9) Pneumonia due to COVID-19 virus: Remove isolation precautions given patient is 2 weeks post treatment. Status: Chronic Additional A&P Information Seizure disorder Continue Keppra for history of seizures Full code Eliquis for DVT prophylaxis Protonix 40 mg twice daily for PUD prophylaxis. Oral care with chlorhexidine twice daily. Discharge planning: Back to [facility] once sodium levels better. Plan for today: Continue to monitor daily monitor sodium levels for hypernatremia given dehydration, reassessment of tube feeds. Attestations Medical Necessity Statement*: Requires further hospitalization for management of hypernatremia secondary to dehydration, post PEG tube placement, hypoxia secondary to recent COVID-19 pneumonia Time Spent in Patient Care: Greater than 35 minutes (>than 50% of time spent in counselling and/or direct pt care on unit). Coding Level of Care Code Acute [facility] for [facility] Diagnoses Hypernatremia E87.0 S/P percutaneous endoscopic gastrostomy (PEG) tube placement Z93.1 Respiratory failure with hypoxia J96.01 Chronicity: acute Pulmonary embolism I26.99 Acute cor pulmonale presence: without acute cor pulmonale Chronicity: acute Pulmonary embolism type: unspecified Sepsis A41.9 Sepsis type: sepsis due to unspecified organism Sepsis acute organ dysfunction status: unspecified Developmental delay, profound R62.50 Protein calorie malnutrition E46 ARDS survivor Z87.09 Pneumonia due to COVID-19 virus U07.1; J12.82
[2021-06-10 16:30] LABS: Glucose Point of Care 133 mg/dL (70-110)
[2021-06-10 19:11] LABS: Sodium 147 mmol/L (136-145)
[2021-06-10 20:09] LABS: Glucose Point of Care 155 mg/dL (70-110)
[2021-06-10] MEDS: atorvastatin 40 mg Tablet 20 MG PO (21:53)
[2021-06-10] MEDS: dextrose 5% 1,000 ML 125 ML IV (23:15)
[2021-06-10 23:21] LABS: Sodium 150 mmol/L (136-145)
[2021-06-11] VITALS (12 sets, daily range): BP systolic 99–150; BP diastolic 65–78; PULSE 79–93; RESP 16–18; TEMP 36.6–37.1; O2SAT 88–93
[2021-06-11 03:21] LABS: Sodium 152 mmol/L (136-145)
[2021-06-11] MEDS: levalbuterol 0.63 mg/3 mL Neb INHALATION ×4 (03:25→21:19)
[2021-06-11] MEDS: levETIRAcetam 500 mg Tablet 1500 MG PEG-TUBE ×2 (03:44→13:30)
[2021-06-11] MEDS: apixaban 5 mg Tablet PEG-TUBE ×2 (05:46→17:49)
[2021-06-11] MEDS: piperacillin-tazobactam 3.375 GM in sodium chloride 0.9% (plus) 100 ML IV ×3 (05:46→21:14)
[2021-06-11] MEDS: dextrose 5% 1,000 ML 125 ML IV ×3 (05:47→21:54)
[2021-06-11 06:10] LABS: Basophils % 0.2 %; Eosinophils # 0.1 10^3/uL (0.0-0.8); Eosinophils % 0.4 %; Hematocrit 29.8 % (42.0-52.0); Hemoglobin 9.5 g/dL (11.7-16.6); Lymphocytes # 1.3 10^3/uL (0.8-4.8); Lymphocytes % 7.8 %; Mean Corpuscular HGB Conc 31.9 g/dL (30.0-36.0); Mean Corpuscular Hemoglobin 31.7 pg (28.0-34.0); Mean Corpuscular Volume 99.3 fL (80-94); Mean Platelet Volume 11.5 fL (7.4-10.4); Monocytes # 0.6 10^3/uL (0.2-0.9); Monocytes % 3.8 %; Neutrophils # 14.31 10^3/uL (1.8-7.7); Neutrophils % 87.4 %; Nucleated Red Blood Cells % 0.2 %; Platelet Count 220 10^3/cmm (130-400); Red Cell Distribution Width 15.8 % (12.1-15.1); White Blood Count 16.4 10^3/uL (4.0-10.0)
[2021-06-11 06:18] LABS: Glucose Point of Care 151 mg/dL (70-110)
[2021-06-11 06:31] LABS: Alanine Aminotransferase 36 U/L (0-41); Albumin Level 2.9 g/dL (3.5-5.2); Alkaline Phosphatase 141 IU/L (40-130); Anion Gap 10.7 (5-19); Aspartate Amino Transferase 30 U/L (0-40); Blood Urea Nitrogen 26 mg/dL (8-23); Calcium 7.9 mg/dL (8.5-10.5); Carbon Dioxide 30 mmol/L (22-29); Chloride 109 mmol/L (98-107); Globulin 2.3 g/dL (1.3-4.6); Glomerular Filtration Rate 135.6 mL/min (90-130); Glucose 153 mg/dL (65-115); Osmolality Calculated 310 mOsm/kg (285-295); Potassium 3.7 mmol/L (3.5-5.1); Sodium 146 mmol/L (136-145); Total Bilirubin 0.4 mg/dL (0.15-1.2); Total Protein 5.2 g/dL (6.6-8.7)
[2021-06-11] MEDS: budesonide 0.5 mg/2 mL Neb INHALATION ×2 (08:10→21:20)
[2021-06-11] MEDS: ipratropium 0.5 mg/2.5 mL Neb INHALATION ×3 (08:10→21:19)
[2021-06-11] MEDS: PARoxetine 20 mg Tablet 10 MG PO (10:31)
[2021-06-11] MEDS: dexamethasone 4 mg Tablet 3 MG PO (10:31)
[2021-06-11] MEDS: cholecalciferol (vitamin D3) 1,000 unit Tablet 1000 UNIT PO (10:31)
[2021-06-11] MEDS: zinc gluconate 50 mg Tablet PO (10:32)
[2021-06-11] MEDS: pantoprazole DR 40 mg Tablet PO ×2 (10:32→17:49)
[2021-06-11] MEDS: chlorhexidine gluconate 0.12% Btl 473 mL 15 ML MUCOUS MEM ×2 (10:32→17:49)
[2021-06-11] MEDS: metoprolol tartrate 25 mg Tablet PO ×2 (10:32→21:14)
[2021-06-11 11:48] LABS: Glucose Point of Care 143 mg/dL (70-110)
--- NOTE | 2021-06-11 13:47 | PC.NURSE ---
[facility] called and said it was inconvenient for them to receive pt this weekend and would be better Monday when they can get the proper supplies. Their office closes at 1600 and she provided an after hours number: [phone].
[2021-06-11 14:06] LABS: Sodium 143 mmol/L (136-145)
--- NOTE | 2021-06-11 15:20 | PC.NUTR ---
Addendum entered by Gissell Yuan 06/11/21 15:24: Received call from case management requesting RD recommendations to be provided in bolus form, as facility will not accept pt on continuous. This RD not aware of this in AM. Recommend the following at discharge: Jevity 1.5, 330 ml bolus QID with 250 ml H2O flush per feeding. Nutrition provision same as below. As pt has not been receiving bolus to this point, recommend gradual transition to this bolus amount, however, unclear at this time when anticipated discharge is. Will leave to MD discretion. Original Note: Nutrition follow up: Recommend clarify current diet order in EMR, as it does not include the formula or the fact that it is a tube feeding. Attempted to find nurse to clarify TF tolerance and residuals but not available at this time. Noted D5W @ 125 ml/hr providing 510 kcal and 150 g dextrose--recommend decrease when appropriate. As Jevity 1.5 is available at [facility], recommend the following to provide similar kcal/protein/fluid as current feeding upon discharge: Jevity 1.5 at 55 ml/hr with 250 ml H2O flushes 6 q hours to provide 1980 kcal, 84 g protein, and 2003 ml H2O. Monitor for residuals, tolerance, and labs, including Na, K, glucose, and renal labs Please note that [facility] does not have Jevity 1.5 in stock--only have in lower calorie concentration and would require increased volume to meet needs. Can continue with [facility] while in facility. See RD assessments for further details.
[2021-06-11 18:09] LABS: Sodium 139 mmol/L (136-145)
[2021-06-11] MEDS: atorvastatin 40 mg Tablet 20 MG PO (21:14)
[2021-06-11 21:32] LABS: Glucose Point of Care 174 mg/dL (70-110)
[2021-06-11 23:06] LABS: Sodium 137 mmol/L (136-145)
[2021-06-12] VITALS (9 sets, daily range): BP systolic 106–123; BP diastolic 65–77; PULSE 80–109; RESP 18–19; TEMP 36.6–37; O2SAT 90–94; BMI 23.1
[2021-06-12] MEDS: levalbuterol 0.63 mg/3 mL Neb INHALATION ×2 (02:56→09:38)
[2021-06-12] MEDS: apixaban 5 mg Tablet PEG-TUBE (04:30)
[2021-06-12] MEDS: levETIRAcetam 500 mg Tablet 1500 MG PEG-TUBE (04:30)
[2021-06-12] MEDS: piperacillin-tazobactam 3.375 GM in sodium chloride 0.9% (plus) 100 ML IV (06:35)
[2021-06-12] MEDS: dextrose 5% 1,000 ML 125 ML IV (06:36)
[2021-06-12 06:54] LABS: Glucose Point of Care 110 mg/dL (70-110)
[2021-06-12] MEDS: pantoprazole DR 40 mg Tablet PO (09:33)
[2021-06-12] MEDS: zinc gluconate 50 mg Tablet PO (09:33)
[2021-06-12] MEDS: cholecalciferol (vitamin D3) 1,000 unit Tablet 1000 UNIT PO (09:33)
[2021-06-12] MEDS: dexamethasone 4 mg Tablet 3 MG PO (09:33)
[2021-06-12] MEDS: PARoxetine 20 mg Tablet 10 MG PO (09:35)
[2021-06-12] MEDS: chlorhexidine gluconate 0.12% Btl 473 mL 15 ML MUCOUS MEM (09:35)
[2021-06-12] MEDS: ipratropium 0.5 mg/2.5 mL Neb INHALATION (09:38)
[2021-06-12] MEDS: budesonide 0.5 mg/2 mL Neb INHALATION (09:39)
--- NOTE | 2021-06-12 09:56 | P.DS_ITS ---
Discharge Providers Date of Admission: 05/21/21 10:23 Date of Discharge: June 12, 2021 Attending Provider at Admission: Marcell Jimenez MD Attending Provider at Discharge: Shon Marin MD Consults: Patrol Community Service Officer: Dr. Cardoza Surgery: Dr. Blackman Primary Care Provider: MANDI Stewart Diagnoses at Discharge Discharge Diagnosis (1) Hypernatremia: Status: Acute (2) S/P percutaneous endoscopic gastrostomy (PEG) tube placement: Status: Acute (3) Respiratory failure with hypoxia: Status: Acute Qualifiers: Chronicity: acute Qualified Code(s): J96.01 - Acute respiratory failure with hypoxia (4) Pulmonary embolism: Status: Acute Qualifiers: Acute cor pulmonale presence: without acute cor pulmonale Chronicity: acute Pulmonary embolism type: unspecified Qualified Code(s): I26.99 - Other pulmonary embolism without acute cor pulmonale (5) Sepsis: Status: Acute Qualifiers: Sepsis acute organ dysfunction status: unspecified Sepsis type: sepsis due to unspecified organism Qualified Code(s): A41.9 - Sepsis, unspecified organism (6) Developmental delay, profound: Status: Acute (7) Protein calorie malnutrition: Status: Acute (8) ARDS survivor: Status: Acute (9) Pneumonia due to COVID-19 virus: Status: Chronic Reason for Visit Reason for Visit: COVID +/ SOB Hospital Course Hospital Course Jorge Luis Lucas is a 65 year old male from [facility] with PMH of profound developmental delay cerebral palsy recently hospitalized for COVID from May 17 to May 20 received remdesivir and dexamethosone when he was diagnosed with pulmonary emboli. He is non verbal at baseline readmitted on 05/21/21 for concerns of fever and hypoxia. He was removed to the hospital because of hypoxic respiratory failure for which he required intubation. He received extended course of remdesivir and also received 1 dose of Tocilizumab. Patient was started on broad-spectrum antibiotics for possible superimposed bacterial infection. Patrol Community Service Officer was consulted and he was eventually extubated on to high flow nasal cannula. With further treatment his respiratory status gradually improved and currently he is on room air saturating 88 to 90%. During the hospital stay case patient also received a PEG tube after consultation from surgery for concerns of aspiration pneumonia because of his baseline poor mental status. Patient's diet was advanced gradually through tube feeds and he was at goal but on June 06 patient pulled the PEG tube out for which it has to be replaced with surgery. Patient was continued on broad- spectrum antibiotics for concerns of possible peritonitis. Patient remained afebrile though had persistent leukocytosis. He was continued on broad-spectrum antibiotics to finish a 5-day course. As he remained afebrile antibiotics were stopped. His hospitalization was also complicated by him developing hypernatremia because of dehydration which is managed by IV fluids and free water flushes. On day of discharge his sodium is down to 135. He has been discharged hemodynamically stable condition with advised to follow- up with his primary care provider within next 5 days for repeat CBC and CMP. He is also advised to continue on tube feeds as bolus. The details of the tube feed directions have been given as below. Patient is saturating well on room air. In case if oxygen is required oxygen nasal cannula can be taped behind his ear to prevent him from taking the nasal cannula. Patient is to be on blood thinner going forward. Physical Exam Const: COMMON NORMALS: no acute distress ORIENTATION/CONSCIOUSNESS: Yes awake; not oriented to person, not oriented to place and not oriented to time HENMT: COMMON NORMALS: normocephalic and atraumatic HEAD & SCALP: normocephalic and atraumatic Eye: COMMON NORMALS: Equal, round and reactive pupils present PUPIL: Yes Equal, round and reactive pupils present Chest: COMMONS NORMALS: normal inspection of the chest Resp: COMMON NORMALS: normal respiratory effort, No retractions, No use of accessory muscles and clear to auscultation bilaterally AUSCULTATION: clear to auscultation bilaterally and diminished lung sounds (Diminished lung sounds in the lung shell) Cardio: COMMON NORMALS: regular rate, regular rhythm, S1 normal heart sound present, S2 normal heart sound present, No gallops present (Cardio), No murmurs present (Cardio), No rub (Cardio) and Peripheral pulses 2+ throughout RATE: regular rate RHYTHM: regular rhythm HEART SOUNDS: S1 normal heart sound present and S2 normal heart sound present PERIPHERAL PULSES: Peripheral pulses 2+ throughout GI: COMMON NORMALS: Normal to inspection, nondistended, normoactive bowel sounds present, Soft to palpation, No hepatosplenomegaly present and no masses AUSCULTATION: Yes normoactive bowel sounds PALPATION: Yes Soft to palpation and Yes No hepatosplenomegaly present RECTAL EXAM: Yes deferred Extremity: COMMON NORMALS: no clubbing, cyanosis or edema and no pedal edema Neuro: SENSORIUM/ORIENTATION: No oriented to person, No oriented to place and No oriented to time Psych: COMMON NORMALS: mental status grossly normal Urinary Catheter Management^: Lamb: Cath Placed During This Visit: yes Reason for Continuing Indwelling Catheter: Acute Urinary Retention or Obstruction Urinary Catheter Date of Insertion: 05/23/21 Urinary Catheter Time of Insertion: 14:48 Discharge Data Data Completed and Pending: Completed Studies During Hospitalization Category Date Time Status CT head wo con* 7 0450 Routine Cat Scan 05/25/21 09:04 Completed XR KUB portable 7 4018 Routine Exams 06/06/21 11:45 Completed XR acute abdomen series [id number] Routi ne Exams 06/07/21 13:05 Completed XR chest 1V christina ble 37540 Routine Exams 05/23/21 15:53 Completed XR chest 1V christina ble [id number] Routine Exams 05/25/21 07:00 Completed XR chest 1V christina ble 26300 Routine Exams 05/28/21 07:00 Completed XR chest 1V christina ble 22408 Routine Exams 05/29/21 07:00 Completed XR chest 1V christina ble 48165 Routine Exams 05/30/21 07:00 Completed XR chest 1V christina ble 11540 Routine Exams 05/31/21 07:00 Completed XR chest 1V christina ble 95180 Routine Exams 06/01/21 07:00 Completed XR chest 1V christina ble [id number] Routine Exams 06/03/21 07:00 Completed XR chest 1V christina ble 00712 Stat Exams 05/21/21 08:10 Completed XR chest 1V christina ble [id number] Stat Exams 05/22/21 02:58 Completed CV echo complete* [id number] Routine Ultrasound 05/24/21 09:12 Completed US abdomen comple te* [id number] Routine Ultrasound 05/24/21 09:12 Completed Pending at discharge Category Date Time Status Blood Culture Sta t Lab 06/07/21 14:30 Results Labs from last 24 hours 06/12/21 06/11/21 06/11/21 06:49 22:35 21:24 Sodium 137 POC Glucose 110 174 H 06/11/21 06/11/21 06/11/21 17:42 13:22 11:37 Sodium 139 143 POC Glucose 143 H Addt'l Data from Hospital Stay: Laboratory Results WBC 16.4 10^3/uL (4.0 -10.0) H 06/11/21 05:45 RBC 3.00 10^6/uL (4.1 -5.3) L 06/11/21 05:45 Hgb 9.5 g/dL (11.7-16 .6) L 06/11/21 05:45 Hct 29.8 % (42.0-52.0 ) L 06/11/21 05:45 MCV 99.3 fL (80-94) H 06/11/21 05:45 MCH 31.7 pg (28.0-34. 0) 06/11/21 05:45 MCHC 31.9 g/dL (30.0-3 6.0) 06/11/21 05:45 RDW 15.8 % (12.1-15.1 ) H 06/11/21 05:45 Plt Count 220 10^3/cmm (130 -400) 06/11/21 05:45 MPV 11.5 fL (7.4-10.4 ) H 06/11/21 05:45 Neut % (Auto) 87.4 % 06/11/21 05:45 Lymph % (Auto) 7.8 % 06/11/21 05:45 Rabun % (Auto) 3.8 % 06/11/21 05:45 Eos % (Auto) 0.4 % 06/11/21 05:45 Baso % (Auto) 0.2 % 06/11/21 05:45 Reticulocyte % (Au to) 1.1 % (0.5-2.0) 05/29/21 03:20 Neut # (Auto) 14.31 10^3/uL (1. 8-7.7) H 06/11/21 05:45 Lymph # (Auto) 1.3 10^3/uL (0.8- 4.8) 06/11/21 05:45 Rabun # (Auto) 0.6 10^3/uL (0.2- 0.9) 06/11/21 05:45 Eos # (Auto) 0.1 10^3/uL (0.0- 0.8) 06/11/21 05:45 Baso # (Auto) 0.0 10^3/uL (0.0- 0.1) 06/11/21 05:45 Nucleated RBC % (a uto) 0.2 % 06/11/21 05:45 Nucleated RBCs # 0.0 /100WBC 06/11/21 05:45 ESR 25 mm/hr (0-10) H 05/25/21 02:39 PT 15.10 SECONDS (12 .1-14.9) H 05/30/21 03:38 INR 1.15 (0.8-1.2) 05/30/21 03:38 Fibrinogen 320 mg/dL (174-49 8) 05/27/21 04:24 D-Dimer <= 0.27 ug/mIFEU (0-0.59) 05/26/21 05:00 Specimen Type Arterial 06/03/21 06:18 Sample Site Radial, left 06/03/21 06:18 ABG pH 7.51 (7.35-7.45) H 06/03/21 06:18 ABG pCO2 43.3 mmHg (35-45) 06/03/21 06:18 ABG pO2 56.0 mmHg (80.0-1 00.0) L 06/03/21 06:18 ABG HCO3 34.9 mmol/L (22-2 6) H 06/03/21 06:18 ABG O2 Saturation 99.7 05/23/21 17:17 ABG Base Excess 10.6 mmol/L (-2.0 -2.0) H 06/03/21 06:18 Palmer Test Pos 06/03/21 06:18 A-a O2 Gradient 55.8 mmHg (5-10) H 05/23/21 17:17 Hematocrit 46.0 % (42-52) 06/03/21 06:18 Hgb O2 Saturation 98.5 % (95-100) 05/23/21 17:17 Carboxyhemoglobin 0.2 %THgb (0.4-20 .1) L 05/23/21 17:17 Methemoglobin 1.0 % (0.4-1.5) 05/23/21 17:17 Total Hemoglobin 14.1 g/dL (14-18) 05/23/21 17:17 Sodium 152.0 mmol/L (131 -143) H 05/23/21 17:17 Potassium 3.0 mmol/L (3.5-5 .0) L 05/23/21 17:17 Glucose 203.0 mg/dL (70-1 15) H 05/23/21 17:17 Ionized Calcium 1.1 mmol/L (1.1-1 .4) 05/23/21 17:17 O2 Delivery Device Nc 06/03/21 06:18 O2 Liters/Min 6.0 % 06/03/21 06:18 Mechanical Rate 14.0 05/23/21 17:17 FiO2 50.0 % 05/31/21 05:00 Tidal Volume 0.45 05/27/21 05:30 PEEP 6.0 cmH20 05/27/21 05:30 Activated Sludge Attendant ID 06/03/21 06:18 Sodium 137 mmol/L (136-1 45) 06/11/21 22:35 Potassium 3.7 mmol/L (3.5-5 .1) 06/11/21 05:45 Chloride 109 mmol/L (98-10 7) H 06/11/21 05:45 Carbon Dioxide 30 mmol/L (22-29) H 06/11/21 05:45 Anion Gap 10.7 (5-19) 06/11/21 05:45 BUN 26 mg/dL (8-23) H 06/11/21 05:45 Creatinine 0.6 mg/dL (0.7-1. 2) L 06/11/21 05:45 GFR Calculation 135.6 mL/min (90- 130) H 06/11/21 05:45 Glucose 153 mg/dL (65-115 ) H 06/11/21 05:45 POC Glucose 110 mg/dL (70-110 ) 06/12/21 06:49 Calculated Osmolal ity 310 mOsm/kg (285- 295) H 06/11/21 05:45 Lactic Acid 3.1 mmol/L (0.5-2 .2) H 05/21/21 08:30 Lactic Acid (Sepsi s) 1.6 mmol/L (0.5-2 .2) 05/21/21 11:49 Lactate 1.1 mmol/L (0.5-2 .2) 05/27/21 04:24 Calcium 7.9 mg/dL (8.5-10 .5) L 06/11/21 05:45 Phosphorus 3.2 mg/dL (2.5-4. 5) 06/02/21 04:50 Magnesium 2.4 mg/dL (1.7-2. 3) H 06/03/21 05:19 Iron 62 ug/dL (59-158) 06/09/21 08:43 TIBC 168 mcg/dl 06/09/21 08:43 % Saturation 36.9 % (20-50) 06/09/21 08:43 Unsat Iron Binding 106 ug/dL (112-34 7) L 06/09/21 08:43 Ferritin 349 ng/mL (30-400 ) 05/29/21 03:20 Total Bilirubin 0.4 mg/dL (0.15-1 .2) 06/11/21 05:45 AST 30 U/L (0-40) 06/11/21 05:45 ALT 36 U/L (0-41) 06/11/21 05:45 Alkaline Phosphata se 141 IU/L (40-130) H 06/11/21 05:45 Ammonia 68 umol/L (16-60) H 05/25/21 02:39 Creatine Kinase 36 U/L (39-308) L 05/30/21 03:38 C-Reactive Protein 4.3 mg/L (0.0-4.9 ) 05/30/21 03:38 NT-Pro-B Natriuret Pep 188 pg/mL (0-125) H 06/09/21 08:43 Total Protein 5.2 g/dL (6.6-8.7 ) L 06/11/21 05:45 Albumin 2.9 g/dL (3.5-5.2 ) L 06/11/21 05:45 Globulin 2.3 g/dL (1.3-4.6 ) 06/11/21 05:45 Lipase 31 U/L (13-60) 05/21/21 08:30 Procalcitonin 0.17 ng/mL (0-0.5 ) 06/07/21 14:35 TSH 0.33 uIU/mL (0.27 -4.20) 06/09/21 08:43 Urine Color Cancelled 05/22/21 12:45 Urine Color Yellow (Yellow) 05/22/21 12:45 Urine Appearance Cancelled 05/22/21 12:45 Urine Appearance Clear (CLEAR) 05/22/21 12:45 Urine pH 6 (5-7) 05/22/21 12:45 Urine pH Cancelled 05/22/21 12:45 Ur Specific Gravit y 1.015 (1.005-1.0 30) 05/22/21 12:45 Ur Specific Gravit y Cancelled 05/22/21 12:45 Urine Protein Cancelled 05/22/21 12:45 Urine Protein Trace (Negative) 05/22/21 12:45 Urine Glucose (UA) Cancelled 05/22/21 12:45 Urine Glucose (UA) Norm (Normal) 05/22/21 12:45 Urine Ketones 2+ (Negative) H 05/22/21 12:45 Urine Ketones Cancelled 05/22/21 12:45 Urine Blood 2+ (Negative) H 05/22/21 12:45 Urine Blood Cancelled 05/22/21 12:45 Urine Nitrate Cancelled 05/22/21 12:45 Urine Nitrate Negative (Negati ve) 05/22/21 12:45 Urine Bilirubin Cancelled 05/22/21 12:45 Urine Bilirubin Neg (Negative) 05/22/21 12:45 Prot Sulfosalicyli c Acd Cancelled 05/22/21 12:45 Urine Urobilinogen Cancelled 05/22/21 12:45 Urine Urobilinogen Norm mg/dL (Negat dominic) 05/22/21 12:45 Ur Leukocyte Meghana ase Cancelled 05/22/21 12:45 Ur Leukocyte Meghana ase Negative (Negati ve) 05/22/21 12:45 Urine RBC 0-4 /hpf (0-2) H 05/22/21 12:45 Urine WBC 0-4 /hpf (0-5) H 05/22/21 12:45 Ur Squamous Epith Cells None /hpf (0-5) 05/22/21 12:45 Amorphous Sediment Not Reportable 05/22/21 12:45 Urine Bacteria Trace /hpf (NONE) 05/22/21 12:45 Vancomycin Trough 21.3 ug/mL (10-15 ) H 05/26/21 10:05 Impressions Abdomen Ultrasound 05/24/21 09:12 IMPRESSION: 1. Hepatomegaly with diffuse fatty infiltration. 2. Single gallstone measuring 16 mm.Common bile duct at the upper limits of normal but within normal limits. No gallbladder wall thickening or pericholecystic fluid. 3. No hydronephrosis in either kidney. Head CT 05/25/21 09:04 IMPRESSION: 1. No evidence of intracranial hemorrhage or mass effect. 2. Mild small vessel changes. Moderate parenchymal volume loss. 3. 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 4. Paranasal sinus fluid and opacification as described above. Chest X-Ray 06/03/21 07:00 Impression: No change in bilateral pulmonary opacities. KUB X-Ray 06/06/21 11:45 IMPRESSION: 1. Contrast spillage within the intraperitoneal space. If no spillage was noted during any manipulation/placement, then this raises concern for hollow viscus perforation which can be further evaluated with CT of the abdomen/pelvis. 2. Intraluminal contrast opacification of the stomach suggesting proper positioning of the PEG tube. Findings were discussed with Dr. Núñez at 06/06/2021 1:56 PM CDT. Preliminary micro results at discharge 06/07/21 14:30 Blood Culture - Pr eliminary Blood NEGATIVE TO DIONE E 06/07/21 14:35 Blood Culture - Pr eliminary Blood NEGATIVE TO DIONE E Microbiology 06/07/21 14:30 Blood Blood Culture - Preliminary NEGATIVE TO DATE 06/07/21 14:35 Blood Blood Culture - Preliminary NEGATIVE TO DATE 05/29/21 00:10 Stool Routine Collection Occult Blood (FIT) - Final 05/21/21 09:30 Blood Blood Culture - Final NO GROWTH AFTER 5 DAYS 05/21/21 08:30 Blood Blood Culture - Final NO GROWTH AFTER 5 DAYS 05/23/21 16:12 Sputum - Endotracheal Tube Aspirate Gram Stain - Final 05/23/21 16:12 Sputum - Endotracheal Tube Aspirate Sputum Culture - Final 05/21/21 14:30 Nose MRSA Culture - Final Vitals: Last Vital Signs Temp 97.8 F 06/12/21 08:00 Pulse 100 06/12/21 09:47 Resp 18 06/12/21 09:39 BP 110/72 06/12/21 08:00 Pulse Ox 94 06/12/21 09:39 Discharge Plan Discharge Patient Disposition: Home Condition: Stable Prescriptions: New levalbuterol HCl 0.63 mg/3 mL Solution For Nebulization 0.63 mg inhalation Q6H.RESPIRATORY 14 Days Qty: 168 RF: 0 pantoprazole 40 mg Tablet,Delayed Release (Dr/Ec) 40 mg PO BID 30 Days Qty: 60 RF: 0 budesonide 0.5 mg/2 mL Suspension For Nebulization 0.5 mg inhalation BID.RESPIRATORY 14 Days Qty: 56 RF: 0 ipratropium bromide 0.02 % Solution 0.5 mg inhalation TID.RESPIRATORY 14 Days Qty: 105 RF: 0 metoprolol tartrate 25 mg Tablet 25 mg PO BID@0900,2100 30 Days Qty: 60 RF: 0 Continued multivitamin Tablet 1 tab PO DAILY@08 RF: 0 docosanol [Abreva] 10 % Cream 1 applic TOPICAL DAILY PRN (Reason: Cold Sores) RF: 0 sennosides 8.6 mg Tablet 8.6 mg PO DAILY@08 RF: 0 acetaminophen 325 mg Tablet 650 mg PO Q6H PRN (Reason: Pain) RF: 0 paroxetine HCl [Paxil] 10 mg Tablet 10 mg PO DAILY@08 RF: 0 atorvastatin 20 mg Tablet 20 mg PO DAILY@20 RF: 0 dextromethorphan-guaifenesin [Tussin DM] 10-100 mg/5 mL syrup 5 ml PO Q4H PRN (Reason: Cough) RF: 0 magnesium hydroxide 400 mg/5 mL Suspension 30 ml PO DAILY PRN (Reason: Constipation) RF: 0 pantoprazole 40 mg Tablet,Delayed Release (Dr/Ec) 40 mg PO DAILY@08 RF: 0 olopatadine 0.1 % Drops 1 drp OPHTHALMIC (EYE) BID PRN (Reason: ALLERGIES) RF: 0 levetiracetam 750 mg tablet 1,500 mg PO BID@08,20 RF: 0 mupirocin 2 % Ointment 1 applic TOPICAL TID@08,12,20 RF: 0 polyethylene glycol 3350 17 gram/dose powder 17 g PO DAILY@08 RF: 0 fluticasone propionate 50 mcg/actuation [place],Suspension 1 spray INTRANASAL DAILY@08 RF: 0 loratadine 10 mg Tablet 10 mg PO DAILY PRN (Reason: Allergy Symptoms) RF: 0 lactulose 10 gram/15 mL solution 30 ml PO . DAILY@08 AND PRN RF: 0 Calmoseptine 0.44-20.6 % Ointment 1 applic TOPICAL .ONCE TO TWICE DAILY PRN (Reason: ULCER/SKIN BREAKDOWN) RF: 0 perampanel 8 mg Tablet 8 mg PO DAILY@20 RF: 0 olopatadine 0.7 % Drops 2 drp ophthalmic (eye) DAILY PRN (Reason: Dry Eyes) RF: 0 fluticasone propion-salmeterol [Advair Diskus] 100-50 mcg/dose blister with device 1 inh inhalation BID Qty: 60 RF: 0 Eliquis 5 mg tablet 5 mg PO BID Qty: 60 RF: 3 levofloxacin 500 mg tablet 500 mg PO DAILY 7 Days RF: 0 Discontinued famotidine 20 mg Tablet 20 mg PO DAILY PRN (Reason: Heartburn) RF: 0 ascorbic acid (vitamin C) [Vitamin C] 250 mg Tablet 250 mg PO DAILY@12 RF: 0 dexamethasone 4 mg tablet 4 mg PO DAILY Qty: 7 RF: 0 Discharge Orders: Discharge Order (Routine); Ordered 06/12/21 Ordered By: Shon Marin Other Ambulatory Orders: DME: Nebulizer with Neb Kit (Order) Location: None Selected Ordered By: Shon Marin Referrals: Alecia Solorio FNP [Primary Care Provider] - 4-7 days Discharge Diet: As Directed Discharge Activity: Resume usual activity Patient Instructions: Metoprolol (By mouth), Ipratropium (By breathing), Budesonide (By breathing), Levalbuterol (By breathing), Pantoprazole (By mouth), Percutaneous Endoscopic Gastrostomy Insertion (DC), Malnutrition (DC), GI Discharge Instructions, Opioid Safety Activity Restrictions/Additional Instructions: Jevity 1.5, 330 ml bolus QID with 250 ml H2O flush per feeding. Patient's PEG tube needs to be in abdominal binder 19/06. Abdominal binder can be taken off when he is having a bath and to be placed back on after trying. Patient currently on room air saturating 92%. In case if he requires nasal cannula oxygen supplementation nasal cannula tubes can be taped behind his ears to prevent him from taking it off. Patient to be seen by his primary care provider within next 1 week for repeat CBC and CMP. Patient is to take Levaquin which is the antibiotic for 7 more days. Patient to continue the nebulizations as prescribed. Discharge Attestations Time Spent in Discharge Care*: greater than 30 min Specific Discharge Activities: discussing with pcp/other providers, discussing with returned case inspector/social workers/dc planners, documenting/other paperwork and evaluating patient/reviewing data Status at Discharge: Cognitive status at discharge: severely impaired cognition , Behavioral status at discharge: cooperative , Functional status at discharge: bed bound Overall status at discharge: patient is back to baseline Quality Metrics Clinical Quality Measures During this hospital stay, did patient experience: None Coding Level of Care Code Acute Chg FW DC note Diagnoses Hypernatremia E87.0 S/P percutaneous endoscopic gastrostomy (PEG) tube placement Z93.1 Respiratory failure with hypoxia J96.01 Chronicity: acute Pulmonary embolism I26.99 Acute cor pulmonale presence: without acute cor pulmonale Chronicity: acute Pulmonary embolism type: unspecified Sepsis A41.9 Sepsis acute organ dysfunction status: unspecified Sepsis type: sepsis due to unspecified organism Developmental delay, profound R62.50 Protein calorie malnutrition E46 ARDS survivor Z87.09 Pneumonia due to COVID-19 virus U07.1; J12.82
[2021-06-12 12:34] LABS: Glucose Point of Care 104 mg/dL (70-110)
== END 2021-06-12 01:35 | disposition home or self-care (01) | DRG 207 ==
LOC: ER 10:30 → MEDSURG 13:29 → ICU 05-23 15:09 → MEDSURG 06-04 00:05
PROVIDERS: Family Medicine; Hospitalist; Internal Medicine; Internal Medicine Pulmonary Disease; Surgery; Admitting Provider Internal Medicine; Emergency Provider Family Medicine; PCP Nurse Practitioner Family; Visit Provider Student in an Organized Health Care Education/Training Program
PROC: 0DH63UZ Insertion of Feeding Device into Stomach, Percutaneous Approach (ICD-10-PCS; CPT 43246; principal; 2021-05-27 13:15)
PROC: 0DJ08ZZ Inspection of Upper Intestinal Tract, Via Natural or Artificial Opening Endoscopic (ICD-10-PCS; CPT 43235; 2021-06-06 13:30)
DX: U07.1 COVID-19 (principal); A41.9 Sepsis, unspecified organism; J12.82 Pneumonia due to coronavirus disease 2019; I26.99 Other pulmonary embolism without acute cor pulmonale; J80 Acute respiratory distress syndrome; J69.0 Pneumonitis due to inhalation of food and vomit; E87.1 Hypo-osmolality and hyponatremia; E46 Unspecified protein-calorie malnutrition; T85.528A Displacement of other gastrointestinal prosthetic devices, implants and grafts, initial encounter; I95.9 Hypotension, unspecified; R62.50 Unspecified lack of expected normal physiological development in childhood; D69.6 Thrombocytopenia, unspecified; E86.0 Dehydration; E87.6 Hypokalemia; F03.90 Unspecified dementia, unspecified severity, without behavioral disturbance, psychotic disturbance, mood disturbance, and anxiety; Z68.23 Body mass index [BMI] 23.0-23.9, adult; Y73.1 Therapeutic (nonsurgical) and rehabilitative gastroenterology and urology devices associated with adverse incidents; Z79.01 Long term (current) use of anticoagulants; G80.8 Other cerebral palsy
CPT/HCPCS: 36415; 36416; 36569; 36592; 36600; 43246; 51702; 70450; 71045; 74018; 74022; 76700; 80048; 80051; 80053; 80202; 81001; 82140; 82274; 82330; 82550; 82728; 82803; 82805; 82962; 83540; 83550; 83605; 83690; 83735; 83880; 84100; 84145; 84295; 84443; 85025; 85045; 85378; 85384; 85610; 85651; 86140; 87040; 87070; 87205; 87641; 92526; 92610; 93005; 93306; 94002; 94003; 94640; 94660; 94799; 96365; 96366; 96367; 96372; 96375; 99285; C9113; J0330; J1100; J1630; J1650; J1815; J1940; J1953; J2060; J2250; J2370; J2405; J2543; J2704; J3010; J3262; J3370; J3480; J3490; J7030; J7050; J7614; J7626; J7644; J7799; J8540; Q9963

== ENCOUNTER 2021-06-19 13:55 | Emergency (ER) | payer MEDICAID, SELFPAY ==
[2021-06-19 14:49] VITALS: BP 118/69; PULSE 113; RESP 20; TEMP 36.7; O2SAT 92; BMI 25.8
--- NOTE | 2021-06-19 18:04 | ED_ITS ---
HPI - General Adult General: Chief complaint: General Medical Stated complaint: BLOOD IN FEEDING TUBE Time Seen by Provider: 06/19/21 18:04 History of Present Illness: HPI narrative: 66-year-old male patient comes in today with complaints of blood noted in the gastric feeding tube. Patient had recently had to have a gastric feeding tube placed due to declining health secondary to COVID-19. Patient had a prolonged hospitalization due to COVID-19. Patient was released on June 12 from the hospital. Patient had a change in his medication while in hospital. Patient had perampanel 8 mg that was stopped while patient was in hospital. Since returning home this morning patient had noted to have 2 seizures. Patient is on Keppra but staff believes that patient did better when the perampanel was instituted. It was also noted patient had some blood in his gastric tube and a oxygen saturation of 90 this morning. Patient is alert for self only. Review of Systems General: Reports: 10 or more systems reviewed and unremarkable except in HPI and below Resp: Reports: other (pulse ox 90%) GI: Reports: other (blood in gastric feeding tube) Neuro: Reports: other (seizure) [facility] ED PFSH: Medical History (Updated 06/19/21 @ 20:30 by MANDI Reid) ARDS (adult respiratory distress syndrome) ARDS survivor Developmental delay, profound Elevated lactic acid level Hypernatremia Pneumonia due to COVID-19 virus Protein calorie malnutrition Pulmonary embolism Respiratory failure with hypoxia Sepsis Thrombocytopenia Transaminitis Surgical History (Updated 06/13/21 @ 00:00 by ) S/P percutaneous endoscopic gastrostomy (PEG) tube placement (05/27/21) Physical Exam Const: COMMON NORMALS: no acute distress GENERAL APPEARANCE: cooperative HENMT: COMMON NORMALS: normocephalic and Normal external nose present HEAD & SCALP: normal to inspection and normocephalic NOSE: Normal external nose present MOUTH: Normal oral and palatal mucosa present Eye: GENERAL EYE: appearance normal, both eyes and all related structures Neck/C-Spine: COMMON NORMALS: full ROM Lymph: LYMPHATIC: no lymphadenopathy noted Chest: COMMONS NORMALS: normal inspection of the chest Resp: COMMON NORMALS: normal respiratory effort AUSCULTATION: rhonchi Cardio: COMMON NORMALS: regular rate and regular rhythm RATE: regular rate RHYTHM: regular rhythm GI: COMMON NORMALS: Soft to palpation and non-tender PALPATION: Yes Soft to palpation OTHER: Gastric tube is clear of any blood with aspiration. Back/Pelvis: COMMON NORMALS: thoracic and lumbar spine normal to inspection Extremity: COMMON NORMALS: normal to inspection Neuro: OTHER: Patient has extremity contractures and is relegated to a positional wheel chair. Psych: COMMON NORMALS: mental status grossly normal and cooperative Skin: COMMON NORMALS: no rashes or lesions noted GENERAL SKIN EXAM: no rashes or lesions noted Course Vital Signs: Vital signs: Vital Signs Temperature 98.0 F 06/19/21 14:49 Pulse Rate 113 H 06/19/21 14:49 Respiratory Rate 20 H 06/19/21 14:49 Blood Pressure 118/69 06/19/21 14:49 Pulse Oximetry 92 06/19/21 14:49 MDM - General Adult MDM Narrative: Medical decision making narrative: Patient was brought in by [facility] for evaluation of some blood in a G-tube, some low oxygen level, and a seizure. Patient been taken off of his perampanel while in the hospital for pneumonia secondary to COVID-19. Patient had 2 seizures this morning. Patient also had a oxygen level of 90% this morning. It was also noted patient had a little bit of blood and a G-tube tube this morning. On exam abdomen soft nontender. Skin is warm and dry. Patient has some congestion on the chest shell on auscultation. Vital signs are normal. Differential diagnosis includes but not limited to GI bleed, worsening pneumonia, uncontrolled seizures. Laboratory values were unremarkable as when compared to other labs. Hemoglobin hematocrit was improved from prior last exam. Chest x-ray showed no significant improvement. We will continue patient with routine care. I will add back patient's seizure medicine that was DC'd while he was in the hospital. Patient should follow-up with primary care next week. Also recommended return to the ER for worsening symptoms. Caregiver reported understanding. Lab Data: Labs: Lab Results 06/19/21 06/19/21 Range/Units 19:30 19:30 WBC 12.8 H (4.0-10.0) 10^3/ uL RBC 3.21 L (4.1-5.3) 10^6/u L Hgb 9.8 L (11.7-16.6) g/dL Hct 32.2 L (42.0-52.0) % MCV 100.3 H (80-94) fL MCH 30.5 (28.0-34.0) pg MCHC 30.4 (30.0-36.0) g/dL RDW 16.5 H (12.1-15.1) % Plt Count 426 H (130-400) 10^3/c mm MPV 10.2 (7.4-10.4) fL Neut % (Auto) 77.7 % Lymph % (Auto) 11.1 % [place] % (Auto) 9.0 % Eos % (Auto) 1.1 % Baso % (Auto) 0.6 % Neut # (Auto) 9.97 H (1.8-7.7) 10^3/u L Lymph # (Auto) 1.4 (0.8-4.8) 10^3/u L [place] # (Auto) 1.2 H (0.2-0.9) 10^3/u L Eos # (Auto) 0.1 (0.0-0.8) 10^3/u L Baso # (Auto) 0.1 (0.0-0.1) 10^3/u L Nucleated RBC % (a uto) 0 % Nucleated RBCs # 0.0 /100WBC Sodium 140 (136-145) mmol/L Potassium 4.1 (3.5-5.1) mmol/L Chloride 106 (98-107) mmol/L Carbon Dioxide 23 (22-29) mmol/L Anion Gap 15.1 (5-19) BUN 16 (8-23) mg/dL Creatinine 0.4 L (0.7-1.2) mg/dL GFR Calculation 216.6 H (90-130) mL/min Glucose 116 H (65-115) mg/dL Calculated Osmolal ity 292 (285-295) mOsm/k g Calcium 7.9 L (8.5-10.5) mg/dL Total Bilirubin 0.3 (0.15-1.2) mg/dL AST 20 (0-40) U/L ALT 34 (0-41) U/L Alkaline Phosphata se 82 (40-130) IU/L Total Protein 6.4 L (6.6-8.7) g/dL Albumin 2.7 L (3.5-5.2) g/dL Globulin 3.7 (1.3-4.6) g/dL Discharge Plan Discharge Patient Disposition: Home Clinical Impression: Pneumonia due to COVID-19 virus, Attention to gastrostomy tube, Seizure Condition: Stable Prescriptions: Continued perampanel 8 mg Tablet 8 mg PO DAILY@20 Qty: 30 RF: 0 No Action multivitamin Tablet 1 tab PO DAILY@08 RF: 0 docosanol [Abreva] 10 % Cream 1 applic TOPICAL DAILY PRN (Reason: Cold Sores) RF: 0 sennosides 8.6 mg Tablet 8.6 mg PO DAILY@08 RF: 0 acetaminophen 325 mg Tablet 650 mg PO Q6H PRN (Reason: Pain) RF: 0 paroxetine HCl [Paxil] 10 mg Tablet 10 mg PO DAILY@08 RF: 0 atorvastatin 20 mg Tablet 20 mg PO DAILY@20 RF: 0 dextromethorphan-guaifenesin [Tussin DM] 10-100 mg/5 mL syrup 5 ml PO Q4H PRN (Reason: Cough) RF: 0 magnesium hydroxide 400 mg/5 mL Suspension 30 ml PO DAILY PRN (Reason: Constipation) RF: 0 pantoprazole 40 mg Tablet,Delayed Release (Dr/Ec) 40 mg PO DAILY@08 RF: 0 olopatadine 0.1 % Drops 1 drp OPHTHALMIC (EYE) BID PRN (Reason: ALLERGIES) RF: 0 levetiracetam 750 mg tablet 1,500 mg PO BID@08,20 RF: 0 mupirocin 2 % Ointment 1 applic TOPICAL TID@08,12,20 RF: 0 polyethylene glycol 3350 17 gram/dose powder 17 g PO DAILY@08 RF: 0 fluticasone propionate 50 mcg/actuation [place],Suspension 1 spray INTRANASAL DAILY@08 RF: 0 loratadine 10 mg Tablet 10 mg PO DAILY PRN (Reason: Allergy Symptoms) RF: 0 lactulose 10 gram/15 mL solution 30 ml PO . DAILY@08 AND PRN RF: 0 Calmoseptine 0.44-20.6 % Ointment 1 applic TOPICAL .ONCE TO TWICE DAILY PRN (Reason: ULCER/SKIN BREAKDOWN) RF: 0 olopatadine 0.7 % Drops 2 drp ophthalmic (eye) DAILY PRN (Reason: Dry Eyes) RF: 0 fluticasone propion-salmeterol [Advair Diskus] 100-50 mcg/dose blister with device 1 inh inhalation BID Qty: 60 RF: 0 levalbuterol HCl 0.63 mg/3 mL Solution For Nebulization 0.63 mg inhalation Q6H.RESPIRATORY 14 Days Qty: 168 RF: 0 pantoprazole 40 mg Tablet,Delayed Release (Dr/Ec) 40 mg PO BID 30 Days Qty: 60 RF: 0 budesonide 0.5 mg/2 mL Suspension For Nebulization 0.5 mg inhalation BID.RESPIRATORY 14 Days Qty: 56 RF: 0 ipratropium bromide 0.02 % Solution 0.5 mg inhalation TID.RESPIRATORY 14 Days Qty: 105 RF: 0 metoprolol tartrate 25 mg Tablet 25 mg PO BID@0900,2100 30 Days Qty: 60 RF: 0 Eliquis 5 mg tablet 5 mg PO BID Qty: 60 RF: 3 Discharge Orders: Discharge ED (Routine); Ordered 06/19/21 Ordered By: Fredy Lay Referrals: Alecia Solorio FNP [Primary Care Provider] - Discharge Diet: Usual diet Discharge Activity: Increase activity as tolerated Patient Instructions: Viral Pneumonia (ED), Opioid Safety Activity Restrictions/Additional Instructions: Continue routine care with breathing treatments every 4 hours, continued oxygen. Continue with routine feedings as prescribed. Add back perampanel to routine regimen for seizure control. Follow-up with primary care. Return to the ER as needed. Coding Level of Care Code ED Physical Chemist for Júnior Fwd Exam Comprehensive
--- NOTE | 2021-06-19 18:44 | XRR_ITS ---
PROCEDURE INFORMATION: Exam: XR Chest Exam date and time: 06/19/2021 6:44 PM Age: 66 years old Clinical indication: Dyspnea; Additional info: Hypoxia TECHNIQUE: Imaging protocol: XR of the chest. Views: 1 view. COMPARISON: CR XR acute abdomen series [id number] 06/07/2021 1:29 PM FINDINGS: Lungs: Patulous peripheral consolidations within both lungs and a background of interstitial scarring. Pleural spaces: Unremarkable. No pleural effusion. No pneumothorax. Heart/Mediastinum: Unremarkable. No cardiomegaly. Bones/joints: Unremarkable. XR/XR chest 1V portable [id number] IMPRESSION: Patulous peripheral consolidations with interstitial scarring. Findings are suspicious for infection.
[2021-06-19 19:41] LABS: Basophils # 0.1 10^3/uL (0.0-0.1); Basophils % 0.6 %; Eosinophils # 0.1 10^3/uL (0.0-0.8); Eosinophils % 1.1 %; Hematocrit 32.2 % (42.0-52.0); Hemoglobin 9.8 g/dL (11.7-16.6); Lymphocytes # 1.4 10^3/uL (0.8-4.8); Lymphocytes % 11.1 %; Mean Corpuscular HGB Conc 30.4 g/dL (30.0-36.0); Mean Corpuscular Hemoglobin 30.5 pg (28.0-34.0); Mean Corpuscular Volume 100.3 fL (80-94); Mean Platelet Volume 10.2 fL (7.4-10.4); Monocytes # 1.2 10^3/uL (0.2-0.9); Neutrophils # 9.97 10^3/uL (1.8-7.7); Neutrophils % 77.7 %; Nucleated Red Blood Cells % 0 %; Platelet Count 426 10^3/cmm (130-400); Red Blood Count 3.21 10^6/uL (4.1-5.3); Red Cell Distribution Width 16.5 % (12.1-15.1); White Blood Count 12.8 10^3/uL (4.0-10.0)
[2021-06-19 20:06] LABS: Alanine Aminotransferase 34 U/L (0-41); Albumin Level 2.7 g/dL (3.5-5.2); Alkaline Phosphatase 82 IU/L (40-130); Anion Gap 15.1 (5-19); Aspartate Amino Transferase 20 U/L (0-40); Blood Urea Nitrogen 16 mg/dL (8-23); Calcium 7.9 mg/dL (8.5-10.5); Carbon Dioxide 23 mmol/L (22-29); Chloride 106 mmol/L (98-107); Globulin 3.7 g/dL (1.3-4.6); Glomerular Filtration Rate 216.6 mL/min (90-130); Glucose 116 mg/dL (65-115); Osmolality Calculated 292 mOsm/kg (285-295); Potassium 4.1 mmol/L (3.5-5.1); Sodium 140 mmol/L (136-145); Total Bilirubin 0.3 mg/dL (0.15-1.2); Total Protein 6.4 g/dL (6.6-8.7)
[2021-06-19 21:02] VITALS: PULSE 86; RESP 18; O2SAT 96
== END 2021-06-19 21:03 | disposition home or self-care (01) ==
PROVIDERS: Family Medicine; Emergency Provider Nurse Practitioner Family; PCP Nurse Practitioner Family
DX: Z43.1 Encounter for attention to gastrostomy (principal); U07.1 COVID-19; J12.82 Pneumonia due to coronavirus disease 2019; R56.9 Unspecified convulsions; Z79.01 Long term (current) use of anticoagulants; Z86.711 Personal history of pulmonary embolism
CPT/HCPCS: 71045; 80053; 85025; 99282

== ENCOUNTER 2021-06-30 11:34 | Emergency (ER) | payer MEDICAID, SELFPAY ==
[2021-06-30 11:52] VITALS: PULSE 98; RESP 24; O2SAT 95
[2021-06-30 13:08] VITALS: BP 117/77; PULSE 94; RESP 18; O2SAT 95
--- NOTE | 2021-06-30 13:38 | CT_ITS ---
WS: [id number] CT ABDOMEN WITHOUT CONTRAST HISTORY: g tube displacement evaluation PEG tube is injected with dilute Gastrografin to evaluate placement. 5 mm axial imaging performed to the abdomen. Oral contrast has been provided via PEG tube. Coronal a nd sagittal reformats are submitted. All CT scans at [facility] use at least one of these dose optimization techniques: automated exposure control; mA and/or kV adjustment per patient size ( includes targeted exams where dose is matched to clinical indication); or iterative reconstruction. CONTRAST: None. DLP: 1183.02 mGy.cm COMPARISON: 04/09/2019 Lower thorax: Patient has a very large hiatal hernia. The esophagus is patulous with mild wall thicke amadeo. Interstitial thickening and fibrosis in the lower lung shell. There are also several foci of a ir within the pericardial fat of uncertain etiology. No pneumothorax is identified. PEG tube is injected with dilute Gastrografin. The contrast extends into the stomach which is midline . Majority of the stomach is to the RIGHT of midline and there is a very large hiatal hernia where th e contrast collects. Liver: Normal. No intrahepatic dilatation. Gallbladder: Cholelithiasis. No acute cholecystitis. Pancreas: Limited by motion. Spleen: Normal. Adrenals: Normal. Right kidney: Normal. Left kidney: Normal. Aorta: As visualized are normal. CT/CT abdomen wo con [id number] IMPRESSION: 1. Oral contrast injection PEG tube reveals the PEG tube is in good position. 2. The oral contrast extends into the stomach and then into the very large hia tom hernia which has been present for multiple prior examinations. 3. Severe pulmonary fibrosis and interstitial thickening in the lower lung fie ld. 4. There are a few foci of air in the pericardial fat of uncertain etiology. N o pneumothorax is identified. Pneumomediastinum or mediastinitis should be cons idered. 5. Cholelithiasis. Notified Raquel Ely MD at 06/30/2021 3:03 PM.
--- NOTE | 2021-06-30 14:06 | ED_ITS ---
HPI - General Adult General: Chief complaint: Abdominal Pain Stated complaint: G tube, Formula is coming out of mouth. Time Seen by Provider: 06/30/21 13:10 History of Present Illness: HPI narrative: Patient is a 66-year-old male with history of developmental delay, PEG dependence (placed last month) the emergency room for evaluation of pain around the PEG tube site. Per caregiver, every time the PEG tube is moved, patient moves his body more than usual and the caregiver is concerned that the patient may have been experiencing pain. It is unclear how long patient has been experiencing similar symptoms. Per caregiver, since the PEG tube placement about a month, there has not been any difficulty with flushing the PEG tube, erythema or drainage around the around PEG tube, or any looseness of the tube. Addition, shortly after patient was fed yesterday, caregiver noticed that patient had food contents coming up his mouth. Patient has known history of GERD and was recently hospitalized for ARDS. Onset: Unknown Duration: ongoing Intensity: moderate Location: group home Review of Systems Narrative: Constitutional: No fever, no chills. HEENT: No vision changes, no sore throat. CV: No chest pain, no palpitations. PULM: No cough, No dyspnea. GI: + pain with peg tube manipulation : No dysuria, no frequency, no hematuria. MSKEL: No arthralgias, no edema. SKIN: No new rashes, no lesions. NEURO: No headache, no focal weakness. HEME: No easy bleeding or bruising. PSYCH: No change in mood or affect. PFSH ED PFSH: Medical History (Updated 06/27/21 @ 00:00 by ) ARDS (adult respiratory distress syndrome) ARDS survivor Developmental delay, profound Elevated lactic acid level Hypernatremia Pneumonia due to COVID-19 virus Protein calorie malnutrition Pulmonary embolism Respiratory failure with hypoxia Sepsis Thrombocytopenia Transaminitis Surgical History (Updated 06/13/21 @ 00:00 by ) S/P percutaneous endoscopic gastrostomy (PEG) tube placement (05/27/21) Physical Exam Narrative: EXAM NARRATIVE: Head: Atraumatic, normocephalic Eyes: PERRL, EOMI, conjunctiva Locatwithout injection ENT: Throat without erythema, lesions or exudate, MMM NECK: Supple, trachea midline, no JVD LUNGS: LCTA CV: RRR, S1,S2, no murmurs, rubs, gallops. 2+ peripheral pulses in UEs ABDOMEN: Soft, nontender, nondistended, BS x4, no rigidity, no guarding, no rebound, PEG tube site dry clean intact, peg tube non loose, flushing without difficulties EXTREMITY: Normal ROM, no pitting edema, no calf tenderness to palpation SKIN: No rash or erythema NEURO: Awake and alert. No focal motor deficits. PSYCH: Normal mood and affect. Course ED course: Patient is a 66-year-old male with recent G-tube placement for 1 month ago presenting to the emergency room concerns of increased pain around the G-tube site. There is no looseness, impaction, lines of infection, or displacement of the G-tube currently. CT with p.o. contrast of the PEG tube was ordered for evaluation of PEG tube displacement. No signs of displacement was observed today. However, there is an incidental pockets of air which may suggest mediastinitis versus pneumomediastinum per radiology. This likely due to previous lung scarring from prior ARDS from 1 month ago. I do not suspect that patient's reflux symptoms from yesterday as the cause of possible mediastinitis. There is no signs of perforation from the hiatal hernia or any signs of tracks of air around the stomach. I have discussed finding with patient's STORM SASH MAKER Ruma Solorio, we agreed that since the hospital capacity is full due to Covid and there is high likelihood that patient may be exposed to Covid and w/ a hx of prior ARDS, the best course of action is for patient to obtain outpatient lab work to ensure that this is NOT mediastinitis. at the present time, I do not suspect that this mediastinitis gives given the fact the patient has normal white count, no signs of fever, no desats, no increased work of breathing during the last 12 hrs since reflux. I have discussed finding extensively with patient's home and family living professor who agrees with plan to follow-up with outpatient blood work and chest x-ray first in the morning the request of Sherry Solorio. Patient: Discharge. Patient is given strict return precautions for any worsening signs of hypoxia, fever, chest pain, any new or concerning complaints. Vital Signs: Vital signs: Vital Signs Temperature 97.9 F 06/30/21 15:30 Pulse Rate 95 06/30/21 15:30 Respiratory Rate 32 H 06/30/21 15:30 Blood Pressure 99/61 06/30/21 15:30 Pulse Oximetry 95 06/30/21 15:30 [facility] - General Adult Lab Data: Labs: Lab Results 06/30/21 06/30/21 06/30/21 Range/Units 15:20 15:54 15:54 WBC 8.6 (4.0-10.0) 10^3/ uL RBC 3.27 L (4.1-5.3) 10^6/u L Hgb 9.5 L (11.7-16.6) g/dL Hct 32.1 L (42.0-52.0) % MCV 98.2 H (80-94) fL MCH 29.1 (28.0-34.0) pg MCHC 29.6 L (30.0-36.0) g/dL RDW 15.9 H (12.1-15.1) % Plt Count 564 H (130-400) 10^3/c mm MPV 9.9 (7.4-10.4) fL Neut % (Auto) 68.4 % Lymph % (Auto) 16.6 % [place] % (Auto) 10.9 % Eos % (Auto) 3.0 % Baso % (Auto) 0.6 % Neut # (Auto) 5.86 (1.8-7.7) 10^3/u L Lymph # (Auto) 1.4 (0.8-4.8) 10^3/u L [place] # (Auto) 0.9 (0.2-0.9) 10^3/u L Eos # (Auto) 0.3 (0.0-0.8) 10^3/u L Baso # (Auto) 0.1 (0.0-0.1) 10^3/u L Nucleated RBC % (a uto) 0 % Nucleated RBCs # 0.0 /100WBC PT 16.20 H (12.1-14.9) SECO NDS INR 1.27 H (0.8-1.2) APTT 42.2 H (23.9-36.7) SECO NDS Sodium (136-145) mmol/L Potassium (3.5-5.1) mmol/L Chloride (98-107) mmol/L Carbon Dioxide (22-29) mmol/L Anion Gap (5-19) BUN (8-23) mg/dL Creatinine (0.7-1.2) mg/dL GFR Calculation (90-130) mL/min Glucose (65-115) mg/dL Calculated Osmolal ity (285-295) mOsm/k g Calcium (8.5-10.5) mg/dL SARS-CoV-2 Ag (Rap id) Negative (Negative) 06/30/21 Range/Units 15:54 WBC (4.0-10.0) 10^3/ uL RBC (4.1-5.3) 10^6/u L Hgb (11.7-16.6) g/dL Hct (42.0-52.0) % MCV (80-94) fL MCH (28.0-34.0) pg MCHC (30.0-36.0) g/dL RDW (12.1-15.1) % Plt Count (130-400) 10^3/c mm MPV (7.4-10.4) fL Neut % (Auto) % Lymph % (Auto) % [place] % (Auto) % Eos % (Auto) % Baso % (Auto) % Neut # (Auto) (1.8-7.7) 10^3/u L Lymph # (Auto) (0.8-4.8) 10^3/u L [place] # (Auto) (0.2-0.9) 10^3/u L Eos # (Auto) (0.0-0.8) 10^3/u L Baso # (Auto) (0.0-0.1) 10^3/u L Nucleated RBC % (a uto) % Nucleated RBCs # /100WBC PT (12.1-14.9) SECO NDS INR (0.8-1.2) APTT (23.9-36.7) SECO NDS Sodium 141 (136-145) mmol/L Potassium 4.3 (3.5-5.1) mmol/L Chloride 104 (98-107) mmol/L Carbon Dioxide 28 (22-29) mmol/L Anion Gap 13.3 (5-19) BUN 10 (8-23) mg/dL Creatinine 0.5 L (0.7-1.2) mg/dL GFR Calculation 167.4 H (90-130) mL/min Glucose 93 (65-115) mg/dL Calculated Osmolal ity 291 (285-295) mOsm/k g Calcium 8.3 L (8.5-10.5) mg/dL SARS-CoV-2 Ag (Rap id) (Negative) Imaging Data^: Other Imaging: Radiologist's impression: [place] [id number] [facility] Center[facility] [address], [place] [address]MXau ReportSigned Patient: Ludwin Lucas #: [id number]: [id number]#:[id number]/Sex: 66 / MADM Date: 06/30/21Loc: ERRoom/Bed:Attending Dr: Ordering Provider/Ordering MD: Raquel Ely MD Date of Service: 06/30/21 Procedure(s): XR chest 1V portable [id number] Accession Number(s): [id number] Report Number: [id number] WS: [id number] Portable AP upright chest, 06/30/2021 Clinical Data: pneumomediastinum, evaluate extent Comparison: Portable chest, 06/19/2021. Findings: Bilateral patchy pulmonary opacities are not changed. The heart is at the upper limits of normal. The aortic arch shows calcification and tortuosity. No pneumomediastinum or pneumothorax is seen. The patient's left forearm obscures some detail over the right lower chest. XR/XR chest 1V portable [id number] Impression: 1. Patchy bilateral pulmonary opacities consistent with pneumonia unchanged. 2. Cardiomegaly and atherosclerosis. 3. Negative for pneumomediastinum. Dictated By:Alecia Francis MDSigned By:Alecia Francis MDSigned Date/Time:06/30/21 1530DD/ [address] [address]VG Scan ReportSigned Patient: Ludwin Lucas #: [id number]: [id number]#:[id number]/Sex: 66 / MADM Date: 06/30/21Loc: ERRoom/Bed:Attending Dr: Ordering Provider/Ordering MD: Raquel Ely MD Date of Service: 06/30/21 Procedure(s): CT abdomen wo con [id number] Accession Number(s): [id number] Report Number: [id number] WS: [id number] CT ABDOMEN WITHOUT CONTRAST HISTORY: g tube displacement evaluation PEG tube is injected with dilute Gastrografin to evaluate placement. 5 mm axial imaging performed to the abdomen. Oral contrast has been provided via PEG tube. Coronal and sagittal reformats are submitted. All CT scans at [facility] use at least one of these dose optimization techniques: automated exposure control; mA and/or kV adjustment per patient size (includes targeted exams where dose is matched to clinical indication); or iterative reconstruction. CONTRAST: None. DLP: 1183.02 mGy.cm COMPARISON: 04/09/2019 Lower thorax: Patient has a very large hiatal hernia. The esophagus is patulous with mild wall thickening. Interstitial thickening and fibrosis in the lower lung shell. There are also several foci of air within the pericardial fat of uncertain etiology. No pneumothorax is identified. PEG tube is injected with dilute Gastrografin. The contrast extends into the stomach which is midline. Majority of the stomach is to the RIGHT of midline and there is a very large hiatal hernia where the contrast collects. Liver: Normal. No intrahepatic dilatation. Gallbladder: Cholelithiasis. No acute cholecystitis. Pancreas: Limited by motion. Spleen: Normal. Adrenals: Normal. Right kidney: Normal. Left kidney: Normal. Aorta: As visualized are normal. CT/CT abdomen wo con [id number] IMPRESSION: 1. Oral contrast injection PEG tube reveals the PEG tube is in good position. 2. The oral contrast extends into the stomach and then into the very large hiatal hernia which has been present for multiple prior examinations. 3. Severe pulmonary fibrosis and interstitial thickening in the lower lung field. 4. There are a few foci of air in the pericardial fat of uncertain etiology. No pneumothorax is identified. Pneumomediastinum or mediastinitis should be considered. 5. Cholelithiasis. Notified Raquel Ely MD at 06/30/2021 3:03 PM. Discharge Plan Discharge Prescriptions: No Action multivitamin Tablet 1 tab PO DAILY@08 RF: 0 docosanol [Abreva] 10 % Cream 1 applic TOPICAL DAILY PRN (Reason: Cold Sores) RF: 0 sennosides 8.6 mg Tablet 8.6 mg PO DAILY@08 RF: 0 acetaminophen 325 mg Tablet 650 mg PO Q6H PRN (Reason: Pain) RF: 0 paroxetine HCl [Paxil] 10 mg Tablet 10 mg PO DAILY@08 RF: 0 dextromethorphan-guaifenesin [Tussin DM] 10-100 mg/5 mL syrup 5 ml PO Q4H PRN (Reason: Cough) RF: 0 magnesium hydroxide 400 mg/5 mL Suspension 30 ml PO DAILY PRN (Reason: Constipation) RF: 0 pantoprazole 40 mg Tablet,Delayed Release (Dr/Ec) 40 mg PO DAILY@08 RF: 0 olopatadine 0.1 % Drops 1 drp OPHTHALMIC (EYE) BID PRN (Reason: ALLERGIES) RF: 0 polyethylene glycol 3350 17 gram/dose powder 17 g PO DAILY@08 RF: 0 lactulose 10 gram/15 mL solution 30 ml PO . DAILY@08 AND PRN RF: 0 Calmoseptine 0.44-20.6 % Ointment 1 applic TOPICAL .ONCE TO TWICE DAILY PRN (Reason: ULCER/SKIN BREAKDOWN) RF: 0 Eliquis 5 mg tablet 5 mg PO BID Qty: 60 RF: 3 perampanel 8 mg Tablet 8 mg PO DAILY@20 Qty: 30 RF: 0 levetiracetam 100 mg/mL Solution 750 mg PO BID@08,20 RF: 0 citalopram 10 mg/5 mL Solution 10 mg PO DAILY@08 RF: 0 Coding Level of Care Code ED Call Center Manager for Júnior El
[2021-06-30] MEDS: diatrizoate meglumine 30 mL Sol PO (14:42)
--- NOTE | 2021-06-30 15:10 | XR_ITS ---
WS: [id number] Portable AP upright chest, 06/30/2021 Clinical Data: pneumomediastinum, evaluate extent Comparison: Portable chest, 06/19/2021. Findings: Bilateral patchy pulmonary opacities are not changed. The heart is at the upper limits of n ormal. The aortic arch shows calcification and tortuosity. No pneumomediastinum or pneumothorax is se en. The patient's left forearm obscures some detail over the right lower chest. XR/XR chest 1V portable [id number] Impression: 1. Patchy bilateral pulmonary opacities consistent with pneumonia unchanged. 2. Cardiomegaly and atherosclerosis. 3. Negative for pneumomediastinum.
[2021-06-30 15:30] VITALS: BP 99/61; PULSE 95; RESP 32; TEMP 36.6; O2SAT 95
[2021-06-30 16:08] LABS: Basophils # 0.1 10^3/uL (0.0-0.1); Basophils % 0.6 %; Eosinophils # 0.3 10^3/uL (0.0-0.8); Hematocrit 32.1 % (42.0-52.0); Hemoglobin 9.5 g/dL (11.7-16.6); Lymphocytes # 1.4 10^3/uL (0.8-4.8); Lymphocytes % 16.6 %; Mean Corpuscular HGB Conc 29.6 g/dL (30.0-36.0); Mean Corpuscular Hemoglobin 29.1 pg (28.0-34.0); Mean Corpuscular Volume 98.2 fL (80-94); Mean Platelet Volume 9.9 fL (7.4-10.4); Monocytes # 0.9 10^3/uL (0.2-0.9); Monocytes % 10.9 %; Neutrophils # 5.86 10^3/uL (1.8-7.7); Neutrophils % 68.4 %; Nucleated Red Blood Cells % 0 %; Platelet Count 564 10^3/cmm (130-400); Red Blood Count 3.27 10^6/uL (4.1-5.3); Red Cell Distribution Width 15.9 % (12.1-15.1); White Blood Count 8.6 10^3/uL (4.0-10.0)
[2021-06-30 16:21] LABS: INR 1.27 (0.8-1.2)
[2021-06-30 16:22] LABS: Partial Thromboplastin Time 42.2 SECONDS (23.9-36.7)
[2021-06-30 16:27] LABS: SARS Covid-2 Antigen Negative (Negative)
[2021-06-30 16:30] LABS: Anion Gap 13.3 (5-19); Blood Urea Nitrogen 10 mg/dL (8-23); Calcium 8.3 mg/dL (8.5-10.5); Carbon Dioxide 28 mmol/L (22-29); Chloride 104 mmol/L (98-107); Glomerular Filtration Rate 167.4 mL/min (90-130); Glucose 93 mg/dL (65-115); Osmolality Calculated 291 mOsm/kg (285-295); Potassium 4.3 mmol/L (3.5-5.1); Sodium 141 mmol/L (136-145)
[2021-06-30 17:01] VITALS: BP 133/79; PULSE 93; RESP 18; O2SAT 94
== END 2021-06-30 16:56 | disposition home or self-care (01) ==
PROVIDERS: Emergency Provider Emergency Medicine; PCP Nurse Practitioner Family
DX: R10.9 Unspecified abdominal pain (principal); Z79.01 Long term (current) use of anticoagulants; Z86.711 Personal history of pulmonary embolism; Z20.822 Contact with and (suspected) exposure to COVID-19
CPT/HCPCS: 36415; 71045; 74150; 80048; 85025; 85610; 85730; 86850; 86900; 87426; 99283; Q9963

== ENCOUNTER 2021-07-11 13:42 | Emergency (ER) | payer MEDICAID, SELFPAY ==
[2021-07-11 13:49] VITALS: BP 119/64; PULSE 98; RESP 20; TEMP 36.9; O2SAT 92
[2021-07-11 14:55] VITALS: BP 109/69; PULSE 99; RESP 20; O2SAT 97
--- NOTE | 2021-07-11 15:23 | XRR_ITS ---
PROCEDURE INFORMATION: Exam: XR Chest Exam date and time: 07/11/2021 3:23 PM Age: 66 years old Clinical indication: Cough; Additional info: Cough, diminished bs TECHNIQUE: Imaging protocol: XR of the chest. Views: 1 view. COMPARISON: CR XR chest 2V* [id number] 07/01/2021 10:37 AM FINDINGS: Lungs: Diffusely increased conspicuous interstitial opacities. Volume loss at the left lung base. Pleural spaces: Unremarkable. No pleural effusion. No pneumothorax. Heart/Mediastinum: Unremarkable. No cardiomegaly. Bones/joints: Unremarkable. XR/XR chest 1V portable [id number] IMPRESSION: Pulmonary interstitial opacities are nonspecific in appearance. Somewhat more prominent than comparison imaging. Interstitial edema or pneumonia suspected.
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
[2021-07-11 16:00] VITALS: BP 113/74; PULSE 100; RESP 18; O2SAT 96
[2021-07-11 17:00] VITALS: BP 115/65; PULSE 96; RESP 18; O2SAT 98
== END 2021-07-11 17:48 | disposition home or self-care (01) ==
PROVIDERS: Emergency Provider Emergency Medicine; PCP Nurse Practitioner Family
DX: R50.9 Fever, unspecified (principal); Z79.01 Long term (current) use of anticoagulants; Z86.711 Personal history of pulmonary embolism
CPT/HCPCS: 71045; 99282

== ENCOUNTER 2021-07-26 10:16 | Outpatient (CLI) | payer MEDICAID, SELFPAY ==
--- NOTE | 2021-07-26 10:36 | FL_ITS ---
WS: [id number] ESOPHAGRAM WITH FLUOROSCOPY HISTORY: PRESENCE OF PEG TUBE COMPARISON: None available. FLUOROSCOPY TIME: 0.8 minutes. Very limited evaluation of the esophagus. Study began with the patient in a lateral projection. After the first swallow of barium laryngeal aspiration and penetration were noted. No cough was elicited. Minimal imaging after the aspiration was identified. FL/FL barium swallow [id number] IMPRESSION: 1. Limited evaluation of the esophagus. 2. Silent aspiration with laryngeal penetration was noted after the first few swallows of barium. Study terminated at that time.
== END 2021-07-26 10:17 | disposition home or self-care (01) ==
PROVIDERS: PCP Nurse Practitioner Family; Visit Provider Nurse Practitioner Family
DX: Z93.1 Gastrostomy status (principal)
CPT/HCPCS: 74220

== ENCOUNTER 2021-11-18 14:05 | Outpatient (CLI) | payer MEDICAID, SELFPAY | END 2021-11-18 14:06 | disposition home or self-care (01) | PROVIDERS: PCP Nurse Practitioner Family; Visit Provider Nurse Practitioner Family | DX: L89.322 Pressure ulcer of left buttock, stage 2 (principal) | CPT/HCPCS: 11042; A6212; G0463 ==

== ENCOUNTER 2021-11-25 14:51 | Outpatient (CLI) | payer MEDICAID, SELFPAY | END 2021-11-25 14:52 | disposition home or self-care (01) | LOC: WOUND 14:52 | PROVIDERS: PCP Nurse Practitioner Family; Visit Provider Nurse Practitioner Family | DX: L89.152 Pressure ulcer of sacral region, stage 2 (principal) | CPT/HCPCS: 11042 ==

== ENCOUNTER 2021-12-09 09:28 | Outpatient (CLI) | payer MEDICAID, SELFPAY | END 2021-12-09 09:29 | disposition home or self-care (01) | LOC: WOUND 09:28 | PROVIDERS: PCP Nurse Practitioner Family; Visit Provider Emergency Medicine | DX: Z09 Encounter for follow-up examination after completed treatment for conditions other than malignant neoplasm (principal) | CPT/HCPCS: 99212 ==

== ENCOUNTER 2021-12-25 14:26 | Emergency (ER) | payer MEDICAID, SELFPAY ==
[2021-12-25 14:55] VITALS: BP 144/92; PULSE 100; RESP 18; TEMP 36.9; O2SAT 100
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
[2021-12-25 19:24] VITALS: BP 135/79; PULSE 85; RESP 17; TEMP 36.2; O2SAT 99
--- NOTE | 2021-12-27 09:57 | DCPLANNER ---
Addendum entered by Emily Barnard 01/21/22 22:16: manager construction was told by Doris at general surgery that this appointment was taken care of by other means. Original Note: manager construction had message to schedule a follow up appointment for patient with general surgery. manager construction emailed patients information to Doris Will, and Michaela at [facility] General Surgery / ENT clinic. Patients information will be printed and reviewed. Clinic will call patient with appointment information.
== END 2021-12-25 19:26 | disposition home or self-care (01) ==
PROVIDERS: Emergency Provider Emergency Medicine; PCP Nurse Practitioner Family
DX: K94.23 Gastrostomy malfunction (principal); Z79.01 Long term (current) use of anticoagulants; Z86.711 Personal history of pulmonary embolism
CPT/HCPCS: 99282

== ENCOUNTER 2021-12-29 08:40 | Day surgery (SDC) | payer MEDICAID, SELFPAY ==
[2021-12-29 09:07] VITALS: BP 153/84; PULSE 70; RESP 16; TEMP 36.4; O2SAT 98; BMI 23.1
--- NOTE | 2021-12-29 12:25 | P.PCN_ITS ---
Procedure/Consent Time out: Time Out Performed: Yes Consent: Consent for Procedure: Consent obtained from other (indicate) (Power of business attorney) Procedure Narrative: Preop diagnosis: Leaking PEG tube Postop diagnosis: Same Procedure: Exchange of 20 Hungarian gastrostomy tube Anesthesia: None Surgeon: Dr. Blackman Description of the procedure: The existing 20 Hungarian PEG tube was removed by tom lying gentle traction. There was no significant bleeding. A 20 Hungarian gastrostomy tube was introduced and balloon was inflated with 7 cc of saline. Sterile dressings were applied. Patient tolerated the procedure well. Acute Procedures Epistaxis Control: Time out performed: Yes
== END 2021-12-29 10:57 | disposition home or self-care (01) ==
PROVIDERS: PCP Nurse Practitioner Family; Visit Provider Surgery
PROC: 0DP64UZ Removal of Feeding Device from Stomach, Percutaneous Endoscopic Approach (ICD-10-PCS; CPT 43762; principal; 2021-12-29 09:45)
DX: Z43.1 Encounter for attention to gastrostomy (principal)
CPT/HCPCS: 43762

== ENCOUNTER 2021-12-29 08:40 | Outpatient (CLI) | payer MEDICAID, SELFPAY ==
--- NOTE | 2021-12-29 08:56 | FL_ITS ---
WS: [id number] FL barium swallow modifd [id number] REASON FOR EXAM: Other dysphagia FLUOROSCOPY TIME: 1.3 minutes FINDINGS: Swallowing of barium of various consistencies was monitored and recorded fluoroscopically with the pa tient in the upright sitting position. Spot radiographs were obtained. With the thinner barium there is clearly. There is no choking or coughing. A detailed report of the swallowing evaluation will be rendered by the speech pathology department. FL/FL barium swallow modifd [id number] IMPRESSION: Swallowing evaluation as above.
== END 2021-12-29 08:41 | disposition home or self-care (01) ==
LOC: RAD 08:52
PROVIDERS: PCP Nurse Practitioner Family; Visit Provider Nurse Practitioner Family
DX: Z91.89 Other specified personal risk factors, not elsewhere classified (principal); R13.19 Other dysphagia
CPT/HCPCS: 74230; 92611

== ENCOUNTER → 2022-05-03 13:28 | Outpatient (BNVA) | payer MEDICAID, SELFPAY | PROVIDERS: PCP Nurse Practitioner Family; Visit Provider Surgery | DX: Z93.1 Gastrostomy status (principal) | CPT/HCPCS: 99213 ==

== ENCOUNTER 2022-11-07 11:10 | Emergency (ER) | payer MEDICAID, SELFPAY ==
[2022-11-07 11:13] VITALS: BP 119/80; PULSE 81; RESP 20; O2SAT 97; BMI 3655.6
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
--- NOTE | 2022-11-07 11:20 | CTR_ITS ---
PROCEDURE INFORMATION: Exam: CT Maxillofacial Without Contrast Exam date and time: 11/07/2022 11:39 AM Age: 67 years old Clinical indication: Injury or trauma; Fall; Blunt trauma (contusions or hematomas); Forehead and jaw; Right; Additional info: Fall, facial trauma, eliquis TECHNIQUE: Imaging protocol: Computed tomography of the face without contrast. Radiation optimization: All CT scans at this facility use at least one of these dose optimization techniques: automated exposure control; mA and/or kV adjustment per patient size (includes targeted exams where dose is matched to clinical indication); or iterative reconstruction. COMPARISON: CT head wo con* [id number] 05/25/2021 10:32 AM RADIATION DOSE METRICS: Total DLP (mGy-cm): 500.6 FINDINGS: Orbital cavities: Orbits are normal. Globes are unremarkable. Bones/joints: No fracture or other acute bony abnormality. There is prominent paranasal sinus disease with near complete opacification of the ethmoid, sphenoid and left maxillary sinus. Paranasal sinuses: Normal. No air-fluid levels. Soft tissues: Unremarkable. CT/CT facial bones wo con* [id number] IMPRESSION: No fracture.
--- NOTE | 2022-11-07 11:20 | XR_ITS ---
WS: [id number] Right shoulder, 3 views, 11/07/2022 Clinical Data: fall, contusion, nonverbal, eliquis Comparison: None. Findings: No fractures are seen. There is minimal elevation of the AC joint which could represent a small separ ation. The adjacent right clavicle, right scapula and ribs are normal. The soft tissues are unremarka ble. XR/XR shoulder RT min 2V* [id number] Impression: 1. Negative for fracture. 2. Slight elevation of the right distal clavicle above the acromion which could indicate a small separation.
--- NOTE | 2022-11-07 11:20 | XR_ITS ---
WS: [id number] Portable AP upright chest, 11/07/2022 Clinical Data: fall, nonverbal, eliquis Comparison: Portable chest, 07/11/2021 Findings: There are bilateral interstitial opacities unchanged. There is elevation of the left diaphr agm. The heart is at the upper limits of normal. The aortic arch and descending thoracic aorta show t ortuosity. No pneumothorax is seen. No nodules, masses or effusions are present. XR/XR chest 1V portable [id number] Impression: 1. No change in bilateral chronic interstitial opacities. 2. Cardiomegaly and atherosclerosis.
--- NOTE | 2022-11-07 11:20 | CTR_ITS ---
PROCEDURE INFORMATION: Exam: CT Head Without Contrast Exam date and time: 11/07/2022 11:39 AM Age: 67 years old Clinical indication: Injury or trauma; Fall; Blunt trauma (contusions or hematomas); Additional info: Fall, facial trauma, eliquis TECHNIQUE: Imaging protocol: Computed tomography of the head without contrast. Radiation optimization: All CT scans at this facility use at least one of these dose optimization techniques: automated exposure control; mA and/or kV adjustment per patient size (includes targeted exams where dose is matched to clinical indication); or iterative reconstruction. COMPARISON: CT head wo con* [id number] 05/25/2021 10:32 AM RADIATION DOSE METRICS: Total DLP (mGy-cm): 1233.1 FINDINGS: Brain: No intracranial hemorrhage, edema or other acute abnormality is seen in the brain. There is no mass effect or midline shift. There is generalized chronic atrophy with chronic white matter ischemic changes. 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 Cerebral ventricles: Colpocephaly, enlarged ventricles unchanged. Paranasal sinuses: Visualized sinuses are unremarkable. No fluid levels. Mastoid air cells: Visualized mastoid air cells are well aerated. Bones/joints: Chronic mucosal disease in the paranasal sinuses with near complete opacification of the ethmoid, sphenoid and left maxillary sinus. Soft tissues: Unremarkable. CT/CT head wo con* [id number] IMPRESSION: No acute intracranial abnormality.
--- NOTE | 2022-11-07 11:20 | CTR_ITS ---
PROCEDURE INFORMATION: Exam: CT Cervical Spine Without Contrast Exam date and time: 11/07/2022 11:39 AM Age: 67 years old Clinical indication: Injury or trauma; Fall; Blunt trauma; Additional info: Fall, facial trauma, eliquis TECHNIQUE: Imaging protocol: Computed tomography of the cervical spine without contrast. Radiation optimization: All CT scans at this facility use at least one of these dose optimization techniques: automated exposure control; mA and/or kV adjustment per patient size (includes targeted exams where dose is matched to clinical indication); or iterative reconstruction. COMPARISON: XA FL barium swallow modifd [id number] 12/29/2021 12:17 PM RADIATION DOSE METRICS: Total DLP (mGy-cm): 257.4 FINDINGS: Bones/joints: No fracture, malalignment or other acute abnormality is seen in the cervical spine. Chronic degenerative changes are present in the cervical spine especially from C4-C7 with disc space narrowing sclerosis and osteophytes. There is no severe spinal stenosis. Lungs: Lung apices are normal. Soft tissues: Unremarkable. CT/CT cervical spin wo con* [id number] IMPRESSION: No acute abnormality.
--- NOTE | 2022-11-07 11:20 | XR_ITS ---
WS: [id number] Right knee, 3 views, 11/07/2022 Clinical Data: fall, contusion, nonverbal, eliquis Comparison: None. Findings: No new fractures or dislocations are seen. The joint spaces are normal. The patella is intact. The so ft tissues are unremarkable. There is a long intramedullary nail fixed with 2 transverse screws reducing an old fracture of the di stal third of the right femur. XR/XR knee RT 3V* [id number] Impression: Negative for new fracture
--- NOTE | 2022-11-07 11:20 | XR_ITS ---
WS: [email or web address] Right hand, 3 views, 11/07/2022 Clinical Data: fall, contusion, nonverbal, eliquis Comparison: None. Findings: No new fractures or dislocations are seen. The soft tissues are unremarkable. The joint s paces are normal. The pulse oximeter obscures minimal detail over the right third through fifth finge rs. There are old distal right radial and ulnar fractures with bridging calcification. XR/XR hand RT min 3V* [id number] Impression: Negative for new fractures of the right hand.
[2022-11-07 11:23] VITALS: BP 144/86; PULSE 87; O2SAT 97
[2022-11-07] MEDS: midazolam 1 mg/mL INJ 2 mL 2 MG IM (11:38)
== END 2022-11-07 14:56 | disposition home or self-care (01) ==
PROVIDERS: Emergency Provider Emergency Medicine; PCP Nurse Practitioner Family
DX: S40.011A Contusion of right shoulder, initial encounter (principal); S60.221A Contusion of right hand, initial encounter; S80.01XA Contusion of right knee, initial encounter; Z79.01 Long term (current) use of anticoagulants; W04.XXXA Fall while being carried or supported by other persons, initial encounter; Y92.091 Bathroom in other non-institutional residence as the place of occurrence of the external cause
CPT/HCPCS: 70450; 70486; 71045; 72125; 73030; 73130; 73562; 96372; 99284; J2250

== ENCOUNTER 2023-05-02 11:00 | Inpatient (IN) | payer MEDICAID, SELFPAY ==
[2023-05-02] VITALS (57 sets, daily range): BP systolic 105–159; BP diastolic 70–98; PULSE 73–106; RESP 8–40; TEMP 36.6–37.2; O2SAT 91–100
--- NOTE | 2023-05-02 | XRR_ITS ---
[facility] Final Radiology Report Call: [phone] assistance Online chat: [email or web address] Name: MACARIO SHELBY Age: 67Years M Date: 05/02/2023 SSN: [id number] : 1955 Study: XR CHEST 1 VIEW Requesting Physician: CARON CHILD Images: 1 Add?l Studies: Provided Clinical History: dyspnea/cough PROCEDURE INFORMATION: Exam: XR Chest Exam date and time: 05/02/2023 10:40 AM Age: 50 years old Clinical indication: Cough and dyspnea; Additional info: Dyspnea/cough TECHNIQUE: Imaging protocol: Radiologic exam of the chest. Views: 1 view. COMPARISON: CT chest wo con [id number] 06/13/2022 8:30 AM FINDINGS: Lungs: Low lung volumes seen. The lungs are otherwise clear No consolidation. Pleural spaces: Unremarkable. No pleural effusion. No pneumothorax. Heart/Mediastinum: Unremarkable. No cardiomegaly. Retrocardiac air collection is seen which may reflect a hiatal hernia. Bones/joints: Unremarkable. IMPRESSION: No acute findings. Low lung volumes seen. Thank you for allowing us to participate in the care of your patient. Dictated and Authenticated by: Barrie Stanley MD 05/02/2023 11:16 AM Central Time ([place] & [place] MTDD
--- NOTE | 2023-05-02 11:19 | W.ED.GENADLT ---
HPI - General Adult General: Chief complaint: ER Hold Stated complaint: AMS Time Seen by Provider: 05/02/23 11:04 Source: EMS Mode of arrival: EMS Limitations: altered mental status History of Present Illness: 67-year-old male presents emergency room via EMS. He comes from a IS home where he had an episode of unresponsiveness. He was initially identified as his roommate the paperwork given to the EMS crew identified him as a different patient from the same house. Once he arrived here he was initially registered as his roommate. Caregiver arrived later and identified the mistake. It did cause some difficulties with documentation and labs. Patient was reported to be bradycardic and hypoxic on arrival he did receive atropine bradycardia improved. He has severe mental developmental delay so he is generally nonresponsive but is usually more interactive. Onset (ago): unknown Review of Systems General: Reports: ROS unobtainable due to mental status [facility] PFSH: Medical History (Updated 05/02/23 @ 15:13 by Josh Vazquez DO) Acute anemia ARDS (adult respiratory distress syndrome) ARDS survivor Developmental delay, profound Elevated lactic acid level Hypernatremia Pneumonia due to COVID-19 virus Protein calorie malnutrition Pulmonary embolism Respiratory failure with hypoxia Sepsis Thrombocytopenia Transaminitis Surgical History S/P percutaneous endoscopic gastrostomy (PEG) tube placement (05/27/21) removed 05/04/2022 Social History Smoking and tobacco status: never smoked Physical Exam HENMT: COMMON NORMALS: normocephalic and atraumatic HEAD & SCALP: normocephalic and atraumatic Resp: COMMON NORMALS: normal respiratory effort, No retractions and No use of accessory muscles AUSCULTATION: rhonchi and wheezes Cardio: COMMON NORMALS: regular rhythm and No murmurs present (Cardio) RATE: tachycardic RHYTHM: regular rhythm GI: COMMON NORMALS: Soft to palpation and No hepatosplenomegaly present AUSCULTATION: Yes normoactive bowel sounds PALPATION: Yes Soft to palpation, No Tenderness to palpation present (GI), No Guarding due to palpation present (GI) and Yes No hepatosplenomegaly present Extremity: COMMON NORMALS: capillary refill normal, no clubbing, cyanosis or edema, no calf tenderness and no pedal edema NARRATIVE EXTREMITY EXAM: Contractures of the lower extremities patient in a semifetal position Skin: COMMON NORMALS: no rashes or lesions noted GENERAL SKIN EXAM: no rashes or lesions noted Course Vital Signs: Vital signs: Vital Signs Temperature 98.0 F 05/02/23 14:43 Pulse Rate 85 05/02/23 14:43 Respiratory Rate 16 05/02/23 14:43 Blood Pressure 136/81 05/02/23 14:26 Pulse Oximetry 98 05/02/23 14:43 Oxygen Delivery Me thod Room Air 05/02/23 14:25 Oxygen Flow Rate 4 05/02/23 11:11 MDM - General Adult Medical Decision Making During the course of the ER patient's return back to his normal baseline. His hemoglobin is six-point Hemoccult for stool was positive. 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 His initial lactate was markedly elevated he was given fluids and his follow-up lactate was normal. Is concerned that in his right lung field looks like he may have some infiltrates like he might of aspirated. Uncertain why he was bradycardic for time he did respond well to atropine however he has no signs of heart block at this time. Labs and imaging reviewed discussed Dr. Dao who will admit for hospitalist service. Patient does have a history of seizure disorder did not have any witnessed seizure activity this morning but it is possible this is secondary to his seizures.. He has been typed and screened and be transfused 2 units. Medical Records I reviewed the patient's medical records. Lab Data I reviewed the patient's lab results. 05/02/23 11:23 05/02/23 11:23 Radiology Impressions Abdomen/Pelvis CT 05/02/23 12:45 IMPRESSION: 1. Large esophageal hiatal hernia with intrathoracic stomach in the RIGHT lower lobe. This is similar to previous. 2. Prominent gallbladder calculi near the gallbladder neck similar to previous. No gallbladder wall thickening. 3. Mild diffuse fatty infiltration liver. 4. Mild sigmoid constipation. 5. No hydronephrosis in either kidney. 6. Lamb catheter. 7. Chronic interstitial changes in the lung bases appears unchanged. Laboratory Results WBC 7.0 10^3/uL (4.0-10.0) 05/02/23 11:23 RBC 3.85 10^6/uL (4.1-5.3) L 05/02/23 11:23 Hgb 6.1 g/dL (11.7-16.6) L* 05/02/23 11:23 Hct 26.3 % (42.0-52.0) L 05/02/23 11:23 MCV 68.3 fl (80-94) L 05/02/23 11:23 MCH 15.8 pg (28.0-34.0) L 05/02/23 11:23 MCHC 23.2 g/dL (30.0-36.0) L 05/02/23 11:23 RDW 22.1 % (12.1-15.1) H 05/02/23 11:23 Plt Count 396 10^3/cmm (130-400) 05/02/23 11:23 MPV 11.0 fL (7.4-10.4) H 05/02/23 11:23 Neut % (Auto) 74.1 % 05/02/23 11:23 Lymph % (Auto) 15.8 % 05/02/23 11:23 [place] % (Auto) 7.8 % 05/02/23 11:23 Eos % (Auto) 1.0 % 05/02/23 11:23 Baso % (Auto) 0.9 % 05/02/23 11:23 Reticulocyte % (Auto) 1.3 % (0.5-2.0) 05/02/23 11:23 Neut # (Auto) 5.15 10^3/uL (1.8-7.7) 05/02/23 11:23 Lymph # (Auto) 1.1 10^3/uL (0.8-4.8) 05/02/23 11:23 [place] # (Auto) 0.5 10^3/uL (0.2-0.9) 05/02/23 11:23 Eos # (Auto) 0.1 10^3/uL (0.0-0.8) 05/02/23 11:23 Baso # (Auto) 0.1 10^3/uL (0.0-0.1) 05/02/23 11:23 Nucleated RBC % (auto) 0 % 05/02/23 11:23 Nucleated RBCs # 0.0 /100WBC 05/02/23 11:23 PT 14.80 SECONDS (12.1-14.9) 05/02/23 11:23 INR 1.12 (0.8-1.2) 05/02/23 11:23 Sodium 140 mmol/L (136-145) 05/02/23 11:23 Potassium 3.6 mmol/L (3.5-5.1) 05/02/23 11:23 Chloride 105 mmol/L (98-107) 05/02/23 11:23 Carbon Dioxide 21 mmol/L (22-29) L 05/02/23 11:23 Anion Gap 17.6 (5-19) 05/02/23 11:23 BUN 13 mg/dL (8-23) 05/02/23 11:23 Creatinine 0.7 mg/dL (0.7-1.2) 05/02/23 11:23 GFR Calculation 113.2 mL/min (90-130) 05/02/23 11:23 Glucose 93 mg/dL (65-115) 05/02/23 11:23 Calculated Osmolality 290 mOsm/kg (285-295) 05/02/23 11:23 Lactic Acid 4.6 mmol/L (0.5-2.2) H* 05/02/23 11:23 Lactic Acid (Sepsis) 2.2 mmol/L (0.5-2.2) 05/02/23 13:00 Calcium 8.2 mg/dL (8.5-10.5) L 05/02/23 11:23 Iron 10 ug/dL (59-158) L 05/02/23 11:23 Ferritin 8 ng/mL (30-400) L 05/02/23 11:23 Total Bilirubin 0.2 mg/dL (0.15-1.2) 05/02/23 11:23 AST 9 U/L (0-40) 05/02/23 11:23 ALT 7 U/L (0-41) 05/02/23 11:23 Alkaline Phosphatase 129 U/L (40-130) 05/02/23 11:23 Creatine Kinase 36 U/L (39-308) L 05/02/23 11:23 Troponin T Baseline 12 ng/L (0-15) 05/02/23 11:23 Troponin T 120 Minute 11.65 ng/L (0-15) 05/02/23 13:00 Delta Troponin T -0.35 ABS# (0-10) L 05/02/23 13:00 Total Protein 6.4 g/dL (6.6-8.7) L 05/02/23 11:23 Albumin 3.6 g/dL (3.5-5.2) 05/02/23 11:23 Globulin 2.8 g/dL (1.3-4.6) 05/02/23 11:23 Lipase 30 U/L (13-60) 05/02/23 11:23 Vitamin B12 612 pg/mL (232-1245) 05/02/23 11:23 Folate 7.4 ng/mL (4.5-32.2) 05/02/23 11:23 Urine Color Yellow (Yellow) 05/02/23 11:34 Urine Appearance Clear (CLEAR) 05/02/23 11:34 Urine pH 6 (5-7) 05/02/23 11:34 Ur Specific [place] 1.015 (1.005-1.030) 05/02/23 11:34 Urine Protein Neg (Negative) 05/02/23 11:34 Urine Glucose (UA) Norm (Normal) 05/02/23 11:34 Urine Ketones Negative (Negative) 05/02/23 11:34 Urine Blood Neg (Negative) 05/02/23 11:34 Urine Nitrate Negative (Negative) 05/02/23 11:34 Urine Bilirubin Neg (Negative) 05/02/23 11:34 Urine Urobilinogen Norm mg/dL (Negative) 05/02/23 11:34 Ur Leukocyte Esterase Negative (Negative) 05/02/23 11:34 Serum Ketones Negative (Negative) 05/02/23 11:23 Blood Type A Positive 05/02/23 13:00 Rho(D) Type Positive 05/02/23 13:00 Antibody Screen Negative 05/02/23 13:00 Crossmatch See Detail 05/02/23 13:00 Discharge Plan Discharge Patient Disposition: Admitted As Inpatient Admit Provider: Doni Dao Clinical Impression: Aspiration pneumonia, Bradycardia, Hx pulmonary embolism, Chronic anticoagulation, Anemia Condition: Stable Coding Level of Care Code ED Regulatory And Compliance Technician for [facility] [place]
[2023-05-02 11:42] LABS: Basophils # 0.1 10^3/uL (0.0-0.1); Basophils % 0.9 %; Eosinophils # 0.1 10^3/uL (0.0-0.8); Hematocrit 26.3 % (42.0-52.0); Lymphocytes # 1.1 10^3/uL (0.8-4.8); Lymphocytes % 15.8 %; Mean Corpuscular HGB Conc 23.2 g/dL (30.0-36.0); Mean Corpuscular Hemoglobin 15.8 pg (28.0-34.0); Mean Corpuscular Volume 68.3 fl (80-94); Monocytes # 0.5 10^3/uL (0.2-0.9); Monocytes % 7.8 %; Neutrophils # 5.15 10^3/uL (1.8-7.7); Neutrophils % 74.1 %; Nucleated Red Blood Cells % 0 %; Platelet Count 396 10^3/cmm (130-400); Red Blood Count 3.85 10^6/uL (4.1-5.3); Red Cell Distribution Width 22.1 % (12.1-15.1)
[2023-05-02 11:44] LABS: Add Urine Microscopic? NO; Charge for UA Resulting for Rev
[2023-05-02 11:56] LABS: Anion Gap 17.6 (5-19); Blood Urea Nitrogen 13 mg/dL (8-23); Carbon Dioxide 21 mmol/L (22-29); Chloride 105 mmol/L (98-107); Glomerular Filtration Rate 113.2 mL/min (90-130); Ketone (Acetest) Serum Negative (Negative); Potassium 3.6 mmol/L (3.5-5.1); Sodium 140 mmol/L (136-145)
[2023-05-02 11:57] LABS: Alanine Aminotransferase 7 U/L (0-41); Albumin Level 3.6 g/dL (3.5-5.2); Alkaline Phosphatase 129 U/L (40-130); Aspartate Amino Transferase 9 U/L (0-40); Calcium 8.2 mg/dL (8.5-10.5); Creatine Phosphokinase 36 U/L (39-308); Globulin 2.8 g/dL (1.3-4.6); Glucose 93 mg/dL (65-115); Lipase 30 U/L (13-60); Osmolality Calculated 290 mOsm/kg (285-295); Total Bilirubin 0.2 mg/dL (0.15-1.2); Total Protein 6.4 g/dL (6.6-8.7)
[2023-05-02 11:58] LABS: Blood Urine Neg (Negative); Glucose Urine UA Norm (Normal); Ketones Urine Negative (Negative); Nitrate Urine Negative (Negative); Protein Urine Neg (Negative); Specific Gravity, Urine 1.015 (1.005-1.030); Urine Appearance Clear (CLEAR); Urine Color Yellow (Yellow); pH Urine 6 (5-7)
[2023-05-02 11:59] LABS: Bilirubin Urine Neg (Negative); Leukocyte Esterase Urine Negative (Negative); Urobilinogen Urine Norm (Negative)
[2023-05-02 12:00] LABS: Troponin(5th) Baseline 12 ng/L (0-15)
[2023-05-02 12:10] LABS: Lactic Sepsis W/Reflex 4.6 mmol/L (0.5-2.2)
[2023-05-02 12:12] LABS: Hemoglobin 6.1 g/dL (11.7-16.6)
[2023-05-02 12:13] LABS: Slide Review Slide Review Perform
--- NOTE | 2023-05-02 12:24 | PC.NURSE ---
antibiotic delayed due to pt pulling out IV
--- NOTE | 2023-05-02 12:45 | CT_ITS ---
WS: [id number] CT ABDOMEN PELVIS TECHNIQUE: Contrast-enhanced CT of the abdomen and pelvis with coronal and sagittal reformatted image s. CLINICAL INFORMATION: abd pain COMPARISON: 2020 DLP: 907.[address] scans at [facility] use at least one of these dose optimization techniques: automated e xposure control; mA and/or kV adjustment per patient size (includes targeted exams where dose is matc hed to clinical indication); or iterative reconstruction. FINDINGS: Some images degraded due to arms overlying the abdomen. Large esophageal hiatal hernia with intrathoracic stomach in the RIGHT lower lobe. Lamb catheter.Chr onic appearing interstitial thickening in the lung bases. This is similar in appearance to 202. Calc ified granuloma RIGHT lower lobe. Diffuse fatty infiltration liver. Normal portal vein and splenic ve in. Cholelithiasis. This is similar to previous. Normal pancreatic parenchymal enhancement. Normal ca liber abdominal aorta. Celiac and SMA appear patent. Mild sigmoid constipation. No evidence of high-grade small or large bowel obstruction. Adrenal glands are normal. Normal renal parenchymal enhancement. Bilateral renal cortical atrophy. No hydronephrosi s. No free fluid in the abdomen or pelvis. Normal lumbar spine. No other suspicious findings. CT/CT abdomen pelvis w con* [id number] IMPRESSION: 1. Large esophageal hiatal hernia with intrathoracic stomach in the RIGHT lowe r lobe. This is similar to previous. 2. Prominent gallbladder calculi near the gallbladder neck similar to previous . No gallbladder wall thickening. 3. Mild diffuse fatty infiltration liver. 4. Mild sigmoid constipation. 5. No hydronephrosis in either kidney. 6. Lamb catheter. 7. Chronic interstitial changes in the lung bases appears unchanged.
[2023-05-02] MEDS: piperacillin-tazobactam 3.375 GM in sodium chloride 0.9% (plus) 50 ML IV ×2 (13:16→23:35)
[2023-05-02 13:19] LABS: Reflex Lactate Order REFLEX LACTIC ORDERD
[2023-05-02 13:26] LABS: Troponin 5 2HR 11.65 ng/L (0-15)
[2023-05-02 13:39] LABS: Lactic Acid level (Lactate) 2.2 mmol/L (0.5-2.2)
[2023-05-02 13:54] LABS: Troponin 5 2HR Delta -0.35 ABS# (0-10)
[2023-05-02 14:18] LABS: Reticulocyte % 1.3 % (0.5-2.0)
[2023-05-02 14:31] LABS: Ferritin 8 ng/mL (30-400); Iron 10 ug/dL (59-158)
[2023-05-02 14:46] LABS: Vitamin B12 612 pg/mL (232-1245)
--- NOTE | 2023-05-02 14:47 | P.HP_ITS ---
Providers/Chief Complaint Admitting Physician: Doni Dao MD Primary Care Provider: MANDI Stewart Chief Complaint: AMS History of Present Illness Jorge Luis Lucas is a 67 year old male with a past medical history of developmental delay, he is not alert to self, under the care of guardianship of the state, history of PEG tube placement which was subsequently removed, history of pu lmonary embolism, on Eliquis, who presents to [facility] with hebrew cantor for evaluation of seizure, and hypoxia, and unresponsiveness. According to patient's hebrew cantor patient this morning had a seizure episode, he is on seizure medications, he has been using them as prescribed his last b reakthrough seizure was about a week ago, after his seizure episode he became unresponsive, looked pale, diaphoretic, she tells me that he was not breathing anymore, so they called EMS, she is not sure if he had a pulse or if he had a blood pressures, she was in a panic, but his O2 sats probe read his heart rates in the 30s, here in the emergency room, he was noted to be normal sinus rhythm, tachypneic, normotensive, his blood work showed anemia, he was received acute CT scan, due to his anemia, hospitalist team was called for admission. Currently he is alert, he is awake, but does not follow commands, he is nonverbal at baseline, no history of agitation, his lactic acid was 4.6, its improved to 2.2, he is received fluid therapy, he is has blood ordered he is receive Zosyn plans on moving him to the ICU. I spoke to general surgery about his anemia especially as he is on Eliquis, plans on EGD tomorrow. Monitor in ICU hemodynamic closely monitor hemoglobin. Currently he is normotensive, normal sinus rhythm, on room air saturating high 90s Review of Systems General: Reports: ROS unobtainable due to medical condition and ROS unobtainable due to mental status Medications/Allergies Home Medications Medication Instructions Recorded Confirmed Last Taken Type dextromethorphan-guaifenesin 10 5 ml PO Q4H PRN Cough 05/17/21 05/02/23 12/28/21 History mg-100 mg/5 mL oral syrup (Roby ROWLEY) docosanol 10 % topical cream 1 applic topical DAILY PRN Cold 05/17/21 05/02/2322 History (Abreva) Sores menthol 0.44 %-zinc oxide 20.6 % 1 applic topical TID PRN 05/17/21 05/02/23 12/28/21 History topical ointment (Calmoseptine) ULCER/SKIN BREAKDOWN sennosides 8.6 mg tablet 8.6 mg PO DAILY@09 05/17/21 05/02/23 12/28/21 History perampanel 8 mg tablet 8 mg PO DAILY@20 #30 tabs 06/19/21 05/02/23 12/28/21 Rx apixaban 5 mg tablet (Eliquis) 5 mg PO BID@07/11/21 05/02/23 12/28/21 History levetiracetam 100 mg/mL oral 750 mg PO BID@05/03/22 05/02/23 Unknown History solution famotidine 20 mg tablet 20 mg PO DAILY 05/02/23 05/02/23 Unknown History multivitamin 1 tab PO DAILY 05/02/23 05/02/23 Unknown History olopatadine 0.2 % eye drops 2 drp ophthalmic (eye) DAILY PRN 05/02/23 05/02/23 Unknown History Allergy Symptoms olopatadine 0.7 % eye drops 2 drp ophthalmic (eye) DAILY PRN 05/02/23 05/02/23 Unknown History Dry Eyes Allergies Allergy/AdvReac Type Severity Reaction Status Date / Time TIDE LAUNDRY SOAP Allergy ALGY-Rash Uncoded 12/25/21 14:59 PFSH Acute PFSH: Medical History (Updated 05/02/23 @ 15:01 by Doni Dao MD) Acute anemia ARDS (adult respiratory distress syndrome) ARDS survivor Developmental delay, profound Elevated lactic acid level Hypernatremia Pneumonia due to COVID-19 virus Protein calorie malnutrition Pulmonary embolism Respiratory failure with hypoxia Sepsis Thrombocytopenia Transaminitis Surgical History S/P percutaneous endoscopic gastrostomy (PEG) tube placement (05/27/21) removed 05/04/2022 Social History Smoking and tobacco status: never smoked Vitals/I&O/Wt Last Vital Signs Temp 98.0 F 05/02/23 14:43 Pulse 85 05/02/23 14:43 Resp 16 05/02/23 14:43 BP 136/81 05/02/23 14:26 Pulse Ox 98 05/02/23 14:43 O2 Del Method Room Air 05/02/23 14:25 O2 Flow Rate 4 05/02/23 11:11 05/01/23 05/02/23 05/02/23 22:59 06:59 14:59 Intake Total 0 / 0 Balance 0 / 0 Weight last 48 hrs Weight 83.461 kg Physical Exam Const: COMMON NORMALS: no acute distress GENERAL APPEARANCE: cooperative ORIENTATION/CONSCIOUSNESS: Yes awake; not oriented to person, not oriented to place and not oriented to time HENMT: COMMON NORMALS: normocephalic, Normal external nose present and oropharynx normal HEAD & SCALP: normocephalic FACE & SINUS: normal facial exam Eye: COMMON NORMALS: Equal, round and reactive pupils present, EOMs intact bilaterally, conjunctivae normal and no scleral icterus CONJUNCTIVA: Yes conjunctivae normal PUPIL: Yes Equal, round and reactive pupils present Neck/C-Spine: COMMON NORMALS: full ROM, no lymphadenopathy, no JVD and Thyroid normal Lymph: LYMPHATIC: no lymphadenopathy noted Chest: COMMONS NORMALS: normal inspection of the chest Resp: COMMON NORMALS: normal respiratory effort, No retractions and No use of accessory muscles AUSCULTATION: crackles and wheezes Cardio: COMMON NORMALS: regular rate, regular rhythm, S1 normal heart sound present, S2 normal heart sound present, No murmurs present (Cardio) and Peripheral pulses 2+ throughout RATE: regular rate RHYTHM: regular rhythm HEART SOUNDS: S1 normal heart sound present and S2 normal heart sound present PERIPHERAL PULSES: Peripheral pulses 2+ throughout GI: COMMON NORMALS: Normal to inspection, nondistended, normoactive bowel sounds present, Soft to palpation and non-tender : BLADDER/KIDNEY EXAM: Yes no CVA tenderness Back/Pelvis: COMMON NORMALS: no CVA tenderness Extremity: COMMON NORMALS: no calf tenderness and no pedal edema Neuro: COMMON NORMALS: moves all extremities and no sensory deficits noted MENINGEAL SIGNS: Yes no meningeal signs Psych: COMMON NORMALS: mental status grossly normal, Normal thought process present, cooperative and speech normal APPEARANCE: Yes well kempt SPEECH: Yes normal speech THOUGHT PROCESS: Normal thought process present Skin: COMMON NORMALS: turgor normal and no jaundice GENERAL SKIN EXAM: turgor normal Urinary Catheter Management: Lamb: Cath Placed During This Visit: yes Urinary Catheter Date of Insertion: 05/02/23 Urinary Catheter Time of Insertion: 11:38 Data 05/02/23 11:23 05/02/23 11:23 Micro: Microbiology 05/02/23 11:22 Blood Culture - Preliminary Blood SPECIMEN COLLECTED 05/02/23 11:15 Blood Culture - Preliminary Blood SPECIMEN COLLECTED A&P Assessment and plan (1) Breakthrough seizure: (2) Aspiration into airway: (3) Unresponsiveness: (4) Bradycardia: (5) History of pulmonary embolism: (6) Chronic anticoagulation: (7) Acute anemia: (8) Developmental delay, profound: (9) Acute respiratory failure: Plan Acute respiratory failure -Likely from aspiration event from his breakthrough seizure -Monitor respiratory status closely -For aspiration ammonia currently on Zosyn Bradycardia -Likely from aspiration event -Telemetry monitoring -Serial EKGs, serial troponins, telemetry monitoring Breakthrough seizure -Seizure precautions -Aspiration precautions -Keppra thousand twice daily Likely breakthrough seizure leading to significant aspiration event respiratory failure and bradycardia, which have resolved currently normal sinus rhythm, on telemetry, on room air, responsive, but does not follow commands and 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 midnight, for EGD tomorrow morning History of pulmonary embolism, back in 2020 when he had COVID, will need to discuss about discontinuing anticoagulation or continuing based on EGD, clinical progress Aspiration pneumonia, continue Zosyn, respiratory therapy eval, DuoNeb as needed Developmental delay Unresponsiveness, more alert more awake, according to caregiver he is at baseline Patient is awarded guardianship of the state SCD for DVT prophylaxis spoke to ER physician, spoke to general surgery, spoke to patient's caregiver's, spoke to nursing staff Attestations Medical Necessity Statement*: Patient requires hospitalization, inpatient, greater than 2 midnights, for breakthrough seizure, bradycardia, aspiration pneumonia, as breakthrough event, respiratory failure, anemia, history of anticoagulation, iron deficiency anemia Diagnoses Breakthrough seizure G40.919 Aspiration into airway T17.908A Unresponsiveness R41.89 Bradycardia R00.1 History of pulmonary embolism Z86.711 Chronic anticoagulation Z79.01 Acute anemia D64.9 Developmental delay, profound R62.50 Acute respiratory failure J96.00
[2023-05-02 14:56] LABS: INR 1.12 (0.8-1.2)
[2023-05-02 15:02] LABS: Folate Level 7.4 ng/mL (4.5-32.2)
[2023-05-02 16:54] LABS: Add Urine Microscopic? NO; Charge for UA Resulting for Rev
[2023-05-02 17:08] LABS: Bilirubin Urine Neg (Negative); Blood Urine Neg (Negative); Glucose Urine UA Norm (Normal); Ketones Urine Negative (Negative); Leukocyte Esterase Urine Negative (Negative); Nitrate Urine Negative (Negative); Protein Urine Neg (Negative); Urine Appearance Clear (CLEAR); Urine Color Yellow (Yellow); Urobilinogen Urine Norm (Negative); pH Urine 6.5 (5-7)
[2023-05-02 17:19] LABS: Chol HDL Ratio 3.15 mg/dL (1.0-5.00); Cholesterol 151 mg/dL (0-200); HDL Cholesterol 48 mg/dL (60-100); LDL Cholesterol Calculated 91 mg/dL (50-129); Triglycerides 59 mg/dL (0-150)
[2023-05-02] MEDS: pantoprazole 40 mg SDV IVP (17:32)
[2023-05-02] MEDS: sucralfate 1 gm Tablet PO (17:34)
[2023-05-02] MEDS: iron sucrose 200 MG in sodium chloride 0.9% (100 ml) 100 ML 220 MG IV (17:36)
[2023-05-02 17:40] LABS: Estmated Average Glucose 117; Hemoglobin A1C 5.7 % (4.0-6.0)
--- NOTE | 2023-05-02 17:54 | PC.NURSE ---
Patient arrived to ICU, [facility] staff bedside with patient
[2023-05-02 19:38] LABS: Troponin 5 6HR 11.61 ng/L (0-15)
[2023-05-02 19:46] LABS: Troponin 5 6HR Delta -0.39 ng/L (0-12)
[2023-05-02] MEDS: dextrose 5%-sod chloride 0.9% 1,000 ML 75 ML IV (23:59)
[2023-05-03] VITALS (199 sets, daily range): BP systolic 92–169; BP diastolic 52–89; PULSE 64–105; RESP 5–40; TEMP 36.3–37.3; O2SAT 87–100
[2023-05-03 00:06] LABS: Hematocrit 27.4 % (42.0-52.0); Hemoglobin 7.6 g/dL (11.7-16.6)
[2023-05-03 03:08] LABS: Basophils # 0.1 10^3/uL (0.0-0.1); Basophils % 0.7 %; Eosinophils # 0.1 10^3/uL (0.0-0.8); Hemoglobin 7.3 g/dL (11.7-16.6); Lymphocytes # 1.4 10^3/uL (0.8-4.8); Lymphocytes % 13.9 %; Mean Corpuscular Hemoglobin 18.8 pg (28.0-34.0); Mean Corpuscular Volume 69.4 fl (80-94); Monocytes # 0.9 10^3/uL (0.2-0.9); Monocytes % 9.4 %; Neutrophils # 7.27 10^3/uL (1.8-7.7); Neutrophils % 74.7 %; Nucleated Red Blood Cells % 0 %; Platelet Count 295 10^3/cmm (130-400); Red Blood Count 3.89 10^6/uL (4.1-5.3); Red Cell Distribution Width 22.8 % (12.1-15.1); White Blood Count 9.7 10^3/uL (4.0-10.0)
[2023-05-03 03:26] LABS: Alanine Aminotransferase 6 U/L (0-41); Albumin Level 3.3 g/dL (3.5-5.2); Alkaline Phosphatase 114 U/L (40-130); Anion Gap 13.5 (5-19); Aspartate Amino Transferase 11 U/L (0-40); Blood Urea Nitrogen 9 mg/dL (8-23); Calcium 7.6 mg/dL (8.5-10.5); Carbon Dioxide 23 mmol/L (22-29); Chloride 110 mmol/L (98-107); Globulin 2.5 g/dL (1.3-4.6); Glomerular Filtration Rate 113.2 mL/min (90-130); Glucose 106 mg/dL (65-115); Magnesium 1.9 mg/dL (1.7-2.3); Osmolality Calculated 295 mOsm/kg (285-295); Phosphorus 2.3 mg/dL (2.5-4.5); Potassium 3.5 mmol/L (3.5-5.1); Sodium 143 mmol/L (136-145); Total Bilirubin 0.9 mg/dL (0.15-1.2); Total Protein 5.8 g/dL (6.6-8.7)
[2023-05-03 03:36] LABS: Mean Platelet Volume 11.2 fL (7.4-10.4)
[2023-05-03 03:37] LABS: Slide Review Slide Review Perform
[2023-05-03] MEDS: sucralfate 1 gm Tablet PO (04:25)
[2023-05-03] MEDS: pantoprazole 40 mg SDV IVP ×2 (04:25→16:34)
[2023-05-03] MEDS: haloperidol inj 5 mg/mL INJ 1 mL 1 MG IM (08:30)
[2023-05-03 09:41] LABS: T3 Free 2.8 PG/ML (2.0-4.4)
[2023-05-03] MEDS: piperacillin-tazobactam 3.375 GM in sodium chloride 0.9% (plus) 50 ML IV ×3 (09:41→23:46)
[2023-05-03] MEDS: dextrose 5%-sod chloride 0.9% 1,000 ML 75 ML IV ×2 (09:42→19:12)
--- NOTE | 2023-05-03 09:45 | PC.NURSE ---
US guided IV insertions x 2.
[2023-05-03] MEDS: LORazepam 2 mg/mL INJ 1 mL (09:49)
--- NOTE | 2023-05-03 10:41 | ANES.PREANE2 ---
Pre-Anesthetic Assessment Height/Weight: Height 1.8 m Weight 83.461 kg Temp Pulse Resp BP Pulse Ox O2 Del Method O2 Flow Rate 98.8 F 81 20 H 130/54 95 Room Air 4 05/03/23 10:00 05/03/23 10:05 05/03/23 10:05 05/03/23 09:30 05/03/23 10:05 05/03/23 10:05 05/02/23 11:11 Preop Diagnosis: anemia Operation Date: 05/03/23 10:45 Proposed Procedures p EGD(Not Applicable) - Tk Marino DO Familial anesthetic complications: none Was Beta Brad taken within 24 hours: N/A Was Clonidine taken within 24 hours: N/A Last Intake: 22:00 Social No alcohol and No tobacco Exam alert, clear to auscultation bilaterally and regular rate & rhythm Airway Submandibular: within normal limits Cervical ROM: within normal limits Mallampati: Class II Dentition: full Comments: Comments: missing front upper and lower Pulmonary Cough hx PE 2 years ago, hx aspiration CV/HEM Anemia (2 PRBC infused), Arrythmia (hx bradycardia) and Hypertension None reported Hepatic None reported GI Gastroesophageal Reflux Disease Metabolic None reported Musc/skel Weakness unable to ambulate Neuropsych Anxiety, Bipolar, Depression and Seizure MR Anesthetic Plan ASA status: 3 Anesthesia: MAC Medications/Allergies Home Medications Medication Instructions Recorded Confirmed Last Taken Type dextromethorphan-guaifenesin 10 5 ml PO Q4H PRN Cough 05/17/21 05/02/23 12/28/21 History mg-100 mg/5 mL oral syrup (Roby DM) docosanol 10 % topical cream 1 applic topical DAILY PRN Cold 05/17/21 05/02/23 12/28/21 History (Abreva) Sores menthol 0.44 %-zinc oxide 20.6 % 1 applic topical TID PRN 05/17/21 05/02/23 12/28/21 History topical ointment (Calmoseptine) ULCER/SKIN BREAKDOWN sennosides 8.6 mg tablet 8.6 mg PO DAILY@09 05/17/21 05/02/23 12/28/21 History perampanel 8 mg tablet 8 mg PO DAILY@20 #30 tabs 06/19/21 05/02/23 12/28/21 Rx apixaban 5 mg tablet (Eliquis) 5 mg PO BID@07/11/21 05/02/23 12/28/21 History levetiracetam 100 mg/mL oral 750 mg PO BID@05/03/22 05/02/23 Unknown History solution famotidine 20 mg tablet 20 mg PO DAILY 05/02/23 05/02/23 Unknown History multivitamin 1 tab PO DAILY 05/02/23 05/02/23 Unknown History olopatadine 0.2 % eye drops 2 drp ophthalmic (eye) DAILY PRN 05/02/23 05/02/23 Unknown History Allergy Symptoms olopatadine 0.7 % eye drops 2 drp ophthalmic (eye) DAILY PRN 05/02/23 05/02/23 Unknown History Dry Eyes Allergies Allergy/AdvReac Type Severity Reaction Status Date / Time TIDE LAUNDRY SOAP Allergy ALGY-Rash Uncoded 12/25/21 14:59 Current Medications Generic Name Dose Route Start Last Admin Trade Name Maxq PRN Reason Stop Dose Admin Levetiracetam 1,000 mg/ Sodium 110 mls @ 440 mls/hr 05/02/23 17:00 05/03/23 04:40 Chloride IV Infused Q12H SHWETA Infusion Dextrose/Sodium Chloride 1,000 mls @ 75 mls/hr 05/02/23 16:23 05/03/23 09:42 Dextrose 5%-Sod Chloride 0.9% IV 75 mls/hr .[id number] SHWETA Administration Iron Sucrose 200 mg/ Sodium 110 mls @ 220 mls/hr 05/02/23 17:00 05/02/23 18:23 Chloride IV 05/06/23 17:29 Infused Q24H SHWETA Infusion Piperacillin Sod/Tazobactam 50 mls @ 12.5 mls/hr 05/02/23 19:00 05/03/23 09:41 Sod 3.375 gm/ Sodium Chloride IV 12.5 mls/hr Q8H SHWETA Administration Non-Formulary Medication 8 mg 05/02/23 20:00 05/02/23 21:31 Perampanel PO Not Given DAILY@20 SHWETA Pantoprazole Sodium 40 mg 05/02/23 17:00 05/03/23 04:25 Pantoprazole 40 Mg Sdv IVP 40 mg Q12H SHWETA Administration Sucralfate 1 gm 05/02/23 17:00 05/03/23 04:25 Sucralfate 1 Gm Tablet PO 1 gm Q12H SHWETA Administration PFSH Anesthesia Medical History (Updated 05/02/23 @ 15:13 by Josh Vazquez DO) Acute anemia ARDS (adult respiratory distress syndrome) ARDS survivor Developmental delay, profound Elevated lactic acid level Hypernatremia Pneumonia due to COVID-19 virus Protein calorie malnutrition Pulmonary embolism Respiratory failure with hypoxia Sepsis Thrombocytopenia Transaminitis Surgical History S/P percutaneous endoscopic gastrostomy (PEG) tube placement (05/27/21) removed 05/04/2022 Social History Smoking and tobacco status: never smoked Data Anesthesia 05/03/23 02:17 05/03/23 02:17 Short CBC 05/02/23 05/02/23 05/03/23 Range/Units 11:23 23:57 02:17 WBC 7.0 9.7 (4.0-10.0) 10^3/uL Hgb 6.1 L* 7.6 L 7.3 L (11.7-16.6) g/dL Hct 26.3 L 27.4 L 27.0 L (42.0-52.0) % MCV 68.3 L 69.4 L (80-94) fl Plt Count 396 295 (130-400) 10^3/cmm Neut % (Auto) 74.1 74.7 % Neut # (Auto) 5.15 7.27 (1.8-7.7) 10^3/uL BMP 05/02/23 05/03/23 11:23 02:17 Sodium 140 143 Potassium 3.6 3.5 Chloride 105 110 H Carbon Dioxide 21 L 23 BUN 13 9 Creatinine 0.7 0.7 Glucose 93 106 Calcium 8.2 L 7.6 L Cardiac Enzymes 05/02/23 05/02/23 05/02/23 Range/Units 11:23 11:23 13:00 Creatine Kinase 36 L (39-308) U/L Troponin T Baseline 12 (0-15) ng/L Troponin T 120 Minute 11.65 (0-15) ng/L Delta Troponin T -0.35 L (0-10) ABS# Troponin T Hi Sens 6Hr (0-15) ng/L Troponin T Hi Sens 6Hr Delta (0-12) ng/L 05/02/23 Range/Units 18:45 Creatine Kinase (39-308) U/L Troponin T Baseline (0-15) ng/L Troponin T 120 Minute (0-15) ng/L Delta Troponin T (0-10) ABS# Troponin T Hi Sens 6Hr 11.61 (0-15) ng/L Troponin T Hi Sens 6Hr Delta -0.39 L (0-12) ng/L Liver Function 05/02/23 05/03/23 Range/Units 11:23 02:17 Total Bilirubin 0.2 0.9 (0.15-1.2) mg/dL AST 9 11 (0-40) U/L ALT 7 6 (0-41) U/L Alkaline Phosphatase 129 114 (40-130) U/L Albumin 3.6 3.3 L (3.5-5.2) g/dL Urine 05/02/23 05/02/23 Range/Units 11:34 16:46 Urine Color Yellow Yellow (Yellow) Urine Appearance Clear Clear (CLEAR) Urine pH 6 6.5 (5-7) Ur Specific [place] 1.015 1.010 (1.005-1.030) Urine Protein Neg Neg (Negative) Urine Glucose (UA) Norm Norm (Normal) Urine Ketones Negative Negative (Negative) Urine Nitrate Negative Negative (Negative) Urine Bilirubin Neg Neg (Negative) Ur Leukocyte Esterase Negative Negative (Negative) Blood Bank 05/02/23 13:00 Blood Type A Positive Rho(D) Type Positive Antibody Screen Negative Coags 05/02/23 11:23 PT 14.80 INR 1.12 Microbiology 05/02/23 11:22 Blood Culture - Preliminary Blood SPECIMEN COLLECTED 05/02/23 11:15 Blood Culture - Preliminary Blood SPECIMEN COLLECTED Cardiac Studies: Echocardiogram Ultrasound 05/24/21
--- NOTE | 2023-05-03 12:07 | PM.CONSULT ---
Providers/Reason For Consult Consulting Physician/Specialty*: Dr. Tk Marino, DO/General surgery Reason for Consult*: Anemia, GI bleed Attending Physician: Doni Dao MD Primary Care Provider: MANDI Stewart History of Present Illness History of Present Illness Jorge Luis Lucas is a 67 year old male with intellectual disability who is a braga of the [facility], that presented to the hospital yesterday after a seizure. He was found to be anemic and had a Hemoccult positive. He takes Eliquis for history of PEs. He is not oriented even to self therefore HPI and review of systems are limited. Review of Systems General: Reports: ROS unobtainable due to medical condition Medications/Allergies Home Medications Medication Instructions Recorded Confirmed Last Taken Type dextromethorphan-guaifenesin 10 5 ml PO Q4H PRN Cough 05/17/21 05/02/23 12/28/21 History mg-100 mg/5 mL oral syrup (Tussin DM) docosanol 10 % topical cream 1 applic topical DAILY PRN Cold 05/17/21 05/02/23 12/28/21 History (Abreva) Sores menthol 0.44 %-zinc oxide 20.6 % 1 applic topical TID PRN 05/17/21 05/02/23 12/28/21 History topical ointment (Calmoseptine) ULCER/SKIN BREAKDOWN sennosides 8.6 mg tablet 8.6 mg PO DAILY@09 05/17/21 05/02/23 12/28/21 History perampanel 8 mg tablet 8 mg PO DAILY@20 #30 tabs 06/19/21 05/02/23 12/28/21 Rx apixaban 5 mg tablet (Eliquis) 5 mg PO BID@07/11/21 05/02/23 12/28/21 History levetiracetam 100 mg/mL oral 750 mg PO BID@05/03/22 05/02/23 Unknown History solution famotidine 20 mg tablet 20 mg PO DAILY 05/02/23 05/02/23 Unknown History multivitamin 1 tab PO DAILY 05/02/23 05/02/23 Unknown History olopatadine 0.2 % eye drops 2 drp ophthalmic (eye) DAILY PRN 05/02/23 05/02/23 Unknown History Allergy Symptoms olopatadine 0.7 % eye drops 2 drp ophthalmic (eye) DAILY PRN 05/02/23 05/02/23 Unknown History Dry Eyes Allergies Allergy/AdvReac Type Severity Reaction Status Date / Time TIDE LAUNDRY SOAP Allergy ALGY-Rash Uncoded 12/25/21 14:59 Current Medications Generic Name Dose Route Start Last Admin Trade Name Freq PRN Reason Stop Dose Admin Levetiracetam 1,000 mg/ Sodium 110 mls @ 440 mls/hr 05/02/23 17:00 05/03/23 04:40 Chloride IV Infused Q12H SHWETA Infusion Dextrose/Sodium Chloride 1,000 mls @ 75 mls/hr 05/02/23 16:23 05/03/23 09:42 Dextrose 5%-Sod Chloride 0.9% IV 75 mls/hr .[id number] SHWETA Administration Iron Sucrose 200 mg/ Sodium 110 mls @ 220 mls/hr 05/02/23 17:00 05/02/23 18:23 Chloride IV 05/06/23 17:29 Infused Q24H SHWETA Infusion Piperacillin Sod/Tazobactam 50 mls @ 12.5 mls/hr 05/02/23 19:00 05/03/23 09:41 Sod 3.375 gm/ Sodium Chloride IV 12.5 mls/hr Q8H SHWETA Administration Non-Formulary Medication 8 mg 05/02/23 20:00 05/02/23 21:31 Perampanel PO Not Given DAILY@20 SHWETA Pantoprazole Sodium 40 mg 05/02/23 17:00 05/03/23 04:25 Pantoprazole 40 Mg Sdv IVP 40 mg Q12H SHWETA Administration Sucralfate 1 gm 05/02/23 17:00 05/03/23 04:25 Sucralfate 1 Gm Tablet PO 1 gm Q12H SHWETA Administration PFSH Acute PFSH: Medical History Acute anemia ARDS (adult respiratory distress syndrome) ARDS survivor Developmental delay, profound Elevated lactic acid level Hypernatremia Pneumonia due to COVID-19 virus Protein calorie malnutrition Pulmonary embolism Respiratory failure with hypoxia Sepsis Thrombocytopenia Transaminitis Surgical History S/P percutaneous endoscopic gastrostomy (PEG) tube placement (05/27/21) removed 05/04/2022 Social History Smoking and tobacco status: never smoked Vitals/I&O/Wt Last Vital Signs Temp 97.4 F L 05/03/23 11:09 Pulse 70 05/03/23 11:09 Resp 16 05/03/23 11:09 BP 119/72 05/03/23 11:09 Pulse Ox 99 05/03/23 11:09 O2 Del Method Nasal Cannula 05/03/23 11:09 O2 Flow Rate 2 05/03/23 11:09 05/02/23 05/03/23 05/03/23 22:59 06:59 14:59 Intake Total 890 / 890 160 / 1050 728.75 / 728.75 Output Total 400 / 400 625 / 1025 125 / 125 Balance 490 / 490 -465 / 25 603.75 / 603.75 Weight last 48 hrs Weight 184 lb Physical Exam Narrative: General : No acute distress Head : Normal cephalic, a-traumatic. Ears : Pinnae and external canal are normal. Hearing is normal. Eyes : PERRLA, Sclera and injection are normal. No conjunctival discharge. Nose : Mucous membranes are without erythema. Throat : buccal mucosa is normal, gums are without significant recession or hypertrophy. Lungs : Equal chest rise bilaterally, no use of accessory muscles, trachea is midline. Cor : Rate and rhythm are normal. Abdomen : Soft, ND, NT, no g/r/m Extremities : No edema, no cyanosis or clubbing, dorsalis pedis pulses are present bilaterally, non-tender to palpation of calves. Upper extremities are normal bilaterally. Back : non-tender to palpation, no CVA tenderness. Urinary Catheter Management: Lamb: Cath Placed During This Visit: yes Reason for Continuing Indwelling Catheter: Accurate Measurement of Urinary Output in Critically Ill Patients Urinary Catheter Date of Insertion: 05/02/23 Urinary Catheter Time of Insertion: 11:38 Data 05/03/23 02:17 05/03/23 02:17 Micro: Microbiology 05/02/23 11:15 Blood Culture - Preliminary Blood NEGATIVE TO DATE 05/02/23 11:22 Blood Culture - Preliminary Blood NEGATIVE TO DATE A&P Assessment and plan (1) Anemia: (2) Chronic anticoagulation: (3) GI bleed: Plan EGD The risks and benefits of the procedure, including bleeding, infection, intestinal perforation requiring surgery, missed lesion were explained to the patient. The patient is understanding of the risks and wishes to proceed. Coding Level of Care Code Acute Code for Chg Fwd Diagnoses Anemia D64.9 Chronic anticoagulation Z79.01 GI bleed K92.2
--- NOTE | 2023-05-03 13:19 | ANE.PACU2 ---
Inpatient post-anesthesia follow up: Airway intact: Yes Vital signs: Temperature 97.4 F Pulse Rate 70 Respiratory Rate 16 Blood Pressure 119/72 Pulse Oximetry 99 Oxygen Delivery Me thod Nasal Cannula Oxygen Flow Rate 2 Fraction of Inspir ed Oxygen Hydration adequate: Yes Nausea and vomiting: Yes Pain level: 1 Mental status: Baseline
--- NOTE | 2023-05-03 13:51 | USCV_ITS ---
Jorge Luis Lucas Age: 67 Gender: M : 1955 Exam Date: 05/03/2023 14:08 Ordering Phys: Doni Dao MD Technologist: CT [place] [facility] [place]: hx of dvt PROCEDURES: The venous duplex Doppler examination of both lower extremities was performed in the standard fashion. Bilaterally, the common femoral, superficial femoral, profunda femoral, popliteal, posterior tibial, greater saphenous veins, and the peroneal trunk were identified and interrogated in the standard fashion. These veins were found to be easily compressible with spontaneous blood flow. No evidence of insufficiency or thrombus noted. FINDINGS: somewhat limited exam, pt with limited mental capabilities and unable to straighten legs properly for exam, no evidence of dvt noted CONCLUSIONS No evidence of right lower extremity DVT. No evidence of left lower extremity DVT. Raghu Jane MD (Electronically Signed) Final Date: 03 May 2023 16:20 S
--- NOTE | 2023-05-03 14:52 | PM.PN ---
Subjective Subjective: Patient was seen, overnight he had episodes of agitation, he pulled out his IV lines, nursing staff replacing IV lines, caregiver at bedside, discussed patient's evidence of iron deficiency anemia, my concerns for slow GI bleed, will have to potentially discontinue anticoagulation we will see what D-dimer venous ultrasound shows, Vitals/I&O/Wt Last Vital Signs Temp 98.7 F 05/03/23 12:50 Pulse 71 05/03/23 13:20 Resp 15 05/03/23 13:20 BP 115/62 05/03/23 13:20 Pulse Ox 98 05/03/23 13:20 O2 Del Method Nasal Cannula 05/03/23 13:20 O2 Flow Rate 2 05/03/23 11:09 05/02/23 05/03/23 05/03/23 22:59 06:59 14:59 Intake Total 890 / 890 160 / 1050 778.75 / 778.75 Output Total 400 / 400 625 / 1025 125 / 125 Balance 490 / 490 -465 / 25 653.75 / 653.75 Weight last 48 hrs Weight 83.461 kg Physical Exam Const: COMMON NORMALS: no acute distress and patient oriented x3 Resp: COMMON NORMALS: normal respiratory effort, No retractions, No use of accessory muscles and clear to auscultation bilaterally AUSCULTATION: clear to auscultation bilaterally Cardio: COMMON NORMALS: regular rate, regular rhythm, S1 normal heart sound present and S2 normal heart sound present RATE: regular rate RHYTHM: regular rhythm HEART SOUNDS: S1 normal heart sound present and S2 normal heart sound present GI: COMMON NORMALS: Normal to inspection, nondistended, normoactive bowel sounds present and non-tender Extremity: COMMON NORMALS: no pedal edema Neuro: COMMON NORMALS: patient oriented x3 Psych: COMMON NORMALS: mental status grossly normal Urinary Catheter Management: Lamb: Cath Placed During This Visit: yes Reason for Continuing Indwelling Catheter: Accurate Measurement of Urinary Output in Critically Ill Patients Urinary Catheter Date of Insertion: 05/02/23 Urinary Catheter Time of Insertion: 11:38 Data 05/03/23 02:17 05/03/23 02:17 Micro: Microbiology 05/02/23 11:15 Blood Culture - Preliminary Blood NEGATIVE TO DATE 05/02/23 11:22 Blood Culture - Preliminary Blood NEGATIVE TO DATE A&P Assessment and plan (1) Breakthrough seizure: (2) Aspiration into airway: (3) Unresponsiveness: (4) Bradycardia: (5) History of pulmonary embolism: (6) Chronic anticoagulation: (7) Acute anemia: (8) Developmental delay, profound: (9) Acute respiratory failure: Plan Acute respiratory failure -Likely from aspiration event from his breakthrough seizure -Monitor respiratory status closely -For aspiration ammonia currently on Zosyn Bradycardia -Likely from aspiration event -Telemetry monitoring -Serial EKGs, serial troponins, telemetry monitoring Breakthrough seizure -Seizure precautions -Aspiration precautions -Keppra thousand twice daily Likely breakthrough seizure leading to significant aspiration event respiratory failure and bradycardia, which have resolved currently normal sinus rhythm, on telemetry, on room air, responsive, but does not follow commands and according to bedside title processor this is his baseline Acute anemia, with evidence of iron deficiency anemia, on anticoagulation Eliquis, Hemoccult stools positive in the emergency room -Has evidence of iron deficiency anemia -Takes Eliquis for history of PE -This was when he had COVID-19 in 01/17 -Hold anticoagulation -Protonix, Carafate -Started on IV iron -IV fluids -Hemoglobin 10.3 status post 1 unit PRBC, monitor hemoglobin -Monitor clinical status closely -N.p.o., EGD today History of pulmonary embolism, back in 2020 when he had COVID, will need to discuss about discontinuing anticoagulation or continuing based on EGD, clinical progress Aspiration pneumonia, continue Zosyn, respiratory therapy eval, DuoNeb as needed Developmental delay Unresponsiveness, more alert more awake, according to caregiver he is at baseline Patient is awarded guardianship of the state SCD for DVT prophylaxis spoke to ER physician, spoke to general surgery, spoke to patient's caregiver's, spoke to nursing staff did have agitation, given Ativan, Haldol, replacing IV, plans on EGD today Attestations Medical Necessity Statement*: Patient requires hospitalization for iron-deficiency anemia, aspiration event, Diagnoses Breakthrough seizure G40.919 Aspiration into airway T17.908A Unresponsiveness R41.89 Bradycardia R00.1 History of pulmonary embolism Z86.711 Chronic anticoagulation Z79.01 Acute anemia D64.9 Developmental delay, profound R62.50 Acute respiratory failure J96.00
[2023-05-03 15:06] LABS: Basophils # 0.1 10^3/uL (0.0-0.1); Basophils % 1.3 %; Eosinophils # 0.2 10^3/uL (0.0-0.8); Eosinophils % 2.7 %; Hematocrit 27.6 % (42.0-52.0); Hemoglobin 7.6 g/dL (11.7-16.6); Lymphocytes % 15.8 %; Mean Corpuscular HGB Conc 27.5 g/dL (30.0-36.0); Mean Corpuscular Hemoglobin 19.3 pg (28.0-34.0); Mean Corpuscular Volume 70.2 fl (80-94); Mean Platelet Volume 10.9 fL (7.4-10.4); Monocytes # 0.7 10^3/uL (0.2-0.9); Monocytes % 11.5 %; Neutrophils # 4.29 10^3/uL (1.8-7.7); Neutrophils % 68.2 %; Nucleated Red Blood Cells % 0 %; Platelet Count 296 10^3/cmm (130-400); Red Blood Count 3.93 10^6/uL (4.1-5.3); Red Cell Distribution Width 22.7 % (12.1-15.1); White Blood Count 6.3 10^3/uL (4.0-10.0)
[2023-05-03 15:52] LABS: D Dimer 0.53 ug/mIFEU (0-0.59)
[2023-05-03] MEDS: iron sucrose 200 MG in sodium chloride 0.9% (100 ml) 100 ML 220 MG IV (16:38)
[2023-05-04] VITALS (30 sets, daily range): BP systolic 125–171; BP diastolic 71–96; PULSE 66–88; RESP 18–20; TEMP 36.3–37.4; O2SAT 91–98
[2023-05-04 03:06] LABS: Basophils # 0.1 10^3/uL (0.0-0.1); Eosinophils # 0.2 10^3/uL (0.0-0.8); Eosinophils % 2.8 %; Hematocrit 26.8 % (42.0-52.0); Hemoglobin 7.2 g/dL (11.7-16.6); Lymphocytes # 1.1 10^3/uL (0.8-4.8); Lymphocytes % 14.5 %; Mean Corpuscular HGB Conc 26.9 g/dL (30.0-36.0); Mean Corpuscular Hemoglobin 18.9 pg (28.0-34.0); Mean Corpuscular Volume 70.3 fl (80-94); Monocytes # 0.7 10^3/uL (0.2-0.9); Monocytes % 9.8 %; Neutrophils # 5.21 10^3/uL (1.8-7.7); Neutrophils % 71.6 %; Nucleated Red Blood Cells % 0.3 %; Platelet Count 299 10^3/cmm (130-400); Red Blood Count 3.81 10^6/uL (4.1-5.3); Red Cell Distribution Width 23.5 % (12.1-15.1); White Blood Count 7.3 10^3/uL (4.0-10.0)
[2023-05-04 03:22] LABS: Alanine Aminotransferase 7 U/L (0-41); Albumin Level 3.2 g/dL (3.5-5.2); Alkaline Phosphatase 113 U/L (40-130); Anion Gap 13.3 (5-19); Aspartate Amino Transferase 14 U/L (0-40); Blood Urea Nitrogen 4 mg/dL (8-23); Carbon Dioxide 22 mmol/L (22-29); Chloride 112 mmol/L (98-107); Globulin 2.5 g/dL (1.3-4.6); Glomerular Filtration Rate 113.2 mL/min (90-130); Glucose 90 mg/dL (65-115); Magnesium 1.9 mg/dL (1.7-2.3); Osmolality Calculated 294 mOsm/kg (285-295); Phosphorus 2.2 mg/dL (2.5-4.5); Potassium 3.3 mmol/L (3.5-5.1); Sodium 144 mmol/L (136-145); Total Bilirubin 0.4 mg/dL (0.15-1.2); Total Protein 5.7 g/dL (6.6-8.7)
[2023-05-04 03:37] LABS: Mean Platelet Volume 10.7 fL (7.4-10.4)
[2023-05-04] MEDS: pantoprazole 40 mg SDV IVP (05:07)
[2023-05-04] MEDS: sucralfate 1 gm Tablet PO ×2 (05:07→17:41)
[2023-05-04] MEDS: lidocaine 1% 5 ML in potassium chloride premix 100 ML 26.25 ML IV (07:10)
[2023-05-04] MEDS: piperacillin-tazobactam 3.375 GM in sodium chloride 0.9% (plus) 50 ML IV (08:31)
--- NOTE | 2023-05-04 12:42 | PM.PN ---
Subjective Subjective: Patient was seen this morning, caregiver at bedside, no hematemesis episodes overnight no bloody stools overnight Vitals/I&O/Wt Last Vital Signs Temp 97.4 F L 05/04/23 12:00 Pulse 79 05/04/23 12:00 Resp 20 H 05/04/23 12:00 BP 145/82 05/04/23 12:00 Pulse Ox 97 05/04/23 12:00 O2 Del Method Room Air 05/04/23 12:00 O2 Flow Rate 2 05/03/23 11:09 05/03/23 05/04/23 05/04/23 22:59 06:59 14:59 Intake Total 982.5 / 1761.25 160 / 1921.25 1277.083 / 1277.083 Output Total 500 / 625 550 / 1175 50 / 50 Balance 482.5 / 1136.25 -390 / 746.25 1227.083 / 1227.083 Physical Exam Const: COMMON NORMALS: no acute distress Resp: COMMON NORMALS: normal respiratory effort, No retractions, No use of accessory muscles and clear to auscultation bilaterally AUSCULTATION: clear to auscultation bilaterally Cardio: COMMON NORMALS: regular rate, regular rhythm, S1 normal heart sound present and S2 normal heart sound present RATE: regular rate RHYTHM: regular rhythm HEART SOUNDS: S1 normal heart sound present and S2 normal heart sound present GI: COMMON NORMALS: Normal to inspection, nondistended, normoactive bowel sounds present and non-tender Extremity: COMMON NORMALS: no pedal edema Psych: COMMON NORMALS: mental status grossly normal Urinary Catheter Management: Lamb: Cath Placed During This Visit: yes Reason for Continuing Indwelling Catheter: Accurate Measurement of Urinary Output in Critically Ill Patients Urinary Catheter Date of Insertion: 05/02/23 Urinary Catheter Time of Insertion: 11:38 Data 05/04/23 02:27 05/04/23 02:27 Micro: Microbiology 05/02/23 11:15 Blood Culture - Preliminary Blood NEGATIVE TO DATE 05/02/23 11:22 Blood Culture - Preliminary Blood NEGATIVE TO DATE A&P Assessment and plan (1) Breakthrough seizure: (2) Aspiration into airway: (3) Unresponsiveness: (4) Bradycardia: (5) History of pulmonary embolism: (6) Chronic anticoagulation: (7) Acute anemia: (8) Developmental delay, profound: (9) Acute respiratory failure: Plan Acute respiratory failure -Likely from aspiration event from his breakthrough seizure -Clinically improved, -Monitor respiratory status closely -For aspiration ammonia de-escalate to Augmentin Bradycardia -Likely from aspiration event -Telemetry monitoring -Serial EKGs, serial troponins, telemetry monitoring Breakthrough seizure -Seizure precautions -Aspiration precautions -Keppra thousand twice daily, likely discharge 1000 twice daily Likely breakthrough seizure leading to significant aspiration event respiratory failure and bradycardia, which have resolved currently normal sinus rhythm, on telemetry, on room air, responsive, but does not follow commands and according to bedside recovery specialist this is his baseline Acute anemia, with evidence of iron deficiency anemia, on anticoagulation Eliquis, Hemoccult stools positive in the emergency room -Has evidence of iron deficiency anemia -Takes Eliquis for history of PE -This was when he had COVID-19 in 01/17 -Hold anticoagulation -Protonix, Carafate -Started on IV iron -IV fluids -Hemoglobin 7.2 status post 1 unit PRBC, monitor hemoglobin -Monitor clinical status closely -Status post EGD which showed esophagitis History of pulmonary embolism, back in 2020 when he had COVID, D-dimer 0.53, venous ultrasound unremarkable, likely we can discontinue anticoagulation at discharge, but will have to go over this with her caregiver, and patient's healthcare power of research attorney who is the guardianship of the state on discharge Aspiration pneumonia, Augmentin, respiratory therapy eval, DuoNeb as needed Developmental delay Unresponsiveness, more alert more awake, according to caregiver he is at baseline Patient is awarded guardianship of the formerly [facility] SCD for DVT prophylaxis For today moved to general medical floor de-escalate Augmentin continue iron supplementation monitor hemoglobin, will need to discuss with patient's guardianship of the state, about discontinuing anticoagulation I think it would be reasonable given his negative D-dimer he is needed ultrasound negative for DVT, but will have to discuss with the guardianship of the state, about risks and benefits, and that this is his first known PE and it was associate with COVID-19, and he completed more than 6 months of anticoagulation Attestations Medical Necessity Statement*: Patient requires hospitalization for acute respiratory failure, bradycardia, anemia Diagnoses Breakthrough seizure G40.919 Aspiration into airway T17.908A Unresponsiveness R41.89 Bradycardia R00.1 History of pulmonary embolism Z86.711 Chronic anticoagulation Z79.01 Acute anemia D64.9 Developmental delay, profound R62.50 Acute respiratory failure J96.00
--- NOTE | 2023-05-04 14:55 | PC.NURSE ---
Report called to floor given to Kuldip.
[2023-05-04 14:59] LABS: Anion Gap 14.1 (5-19); Blood Urea Nitrogen 4 mg/dL (8-23); Calcium 8.1 mg/dL (8.5-10.5); Carbon Dioxide 19 mmol/L (22-29); Chloride 113 mmol/L (98-107); Glomerular Filtration Rate 113.2 mL/min (90-130); Glucose 97 mg/dL (65-115); Osmolality Calculated 291 mOsm/kg (285-295); Potassium 4.1 mmol/L (3.5-5.1); Sodium 142 mmol/L (136-145)
--- NOTE | 2023-05-04 15:18 | PC.NURSE ---
Patient arrived to med/surg [id number].
[2023-05-04] MEDS: amoxicillin-clav 875-125 mg Tablet 1 TAB PO (17:41)
[2023-05-04] MEDS: iron sucrose 200 MG in sodium chloride 0.9% (100 ml) 100 ML 220 MG IV (17:41)
[2023-05-05] VITALS (16 sets, daily range): BP systolic 127–154; BP diastolic 72–86; PULSE 75–92; RESP 14–19; TEMP 36.8–37.3; O2SAT 92–98
[2023-05-05 05:12] LABS: Basophils # 0.1 10^3/uL (0.0-0.1); Basophils % 1.2 %; Eosinophils # 0.3 10^3/uL (0.0-0.8); Eosinophils % 3.6 %; Hematocrit 29.2 % (42.0-52.0); Hemoglobin 7.6 g/dL (11.7-16.6); Lymphocytes # 1.2 10^3/uL (0.8-4.8); Lymphocytes % 17.8 %; Mean Corpuscular Volume 73.2 fl (80-94); Monocytes # 0.8 10^3/uL (0.2-0.9); Monocytes % 10.9 %; Neutrophils # 4.58 10^3/uL (1.8-7.7); Neutrophils % 65.9 %; Nucleated Red Blood Cells # 0.1 /100WBC; Nucleated Red Blood Cells % 0.7 %; Platelet Count 283 10^3/cmm (130-400); Red Blood Count 3.99 10^6/uL (4.1-5.3)
[2023-05-05 06:08] LABS: Slide Review Slide Review Perform
[2023-05-05] MEDS: sucralfate 1 gm Tablet PO ×2 (06:20→17:49)
[2023-05-05 06:35] LABS: Alanine Aminotransferase 6 U/L (0-41); Albumin Level 3.1 g/dL (3.5-5.2); Alkaline Phosphatase 95 U/L (40-130); Anion Gap 14.8 (5-19); Aspartate Amino Transferase 12 U/L (0-40); Blood Urea Nitrogen 7 mg/dL (8-23); Calcium 8.4 mg/dL (8.5-10.5); Carbon Dioxide 21 mmol/L (22-29); Chloride 111 mmol/L (98-107); Globulin 2.5 g/dL (1.3-4.6); Glomerular Filtration Rate 135.2 mL/min (90-130); Glucose 75 mg/dL (65-115); Magnesium 1.9 mg/dL (1.7-2.3); Osmolality Calculated 293 mOsm/kg (285-295); Phosphorus 2.6 mg/dL (2.5-4.5); Potassium 3.8 mmol/L (3.5-5.1); Sodium 143 mmol/L (136-145); Total Bilirubin 0.2 mg/dL (0.15-1.2); Total Protein 5.6 g/dL (6.6-8.7)
[2023-05-05] MEDS: pantoprazole DR 40 mg Tablet PO ×2 (07:45→17:49)
[2023-05-05] MEDS: amoxicillin-clav 875-125 mg Tablet 1 TAB PO ×2 (07:45→17:48)
--- NOTE | 2023-05-05 09:41 | PM.PN ---
Subjective Subjective: Patient was seen this morning, caregiver at bedside, no hematemesis episodes overnight no bloody stools overnight unable to reach STATE Guardianship Keily Celaya: [phone]. -attempting to discontinue eliquis but will require guardian to make decision as PCP unavailable. Vitals/I&O/Wt Last Vital Signs Temp 98.5 F 05/05/23 08:00 Pulse 78 05/05/23 08:52 Resp 16 05/05/23 08:52 BP 135/74 05/05/23 08:00 Pulse Ox 94 05/05/23 08:52 O2 Del Method Room Air 05/05/23 08:52 O2 Flow Rate 2 05/04/23 20:00 05/04/23 05/05/23 05/05/23 22:59 06:59 14:59 Intake Total 460 / 1737.083 230 / 230 Balance 460 / 1687.083 230 / 230 Physical Exam Const: COMMON NORMALS: no acute distress Resp: COMMON NORMALS: normal respiratory effort, No retractions, No use of accessory muscles and clear to auscultation bilaterally AUSCULTATION: clear to auscultation bilaterally Cardio: COMMON NORMALS: regular rate, regular rhythm, S1 normal heart sound present and S2 normal heart sound present RATE: regular rate RHYTHM: regular rhythm HEART SOUNDS: S1 normal heart sound present and S2 normal heart sound present GI: COMMON NORMALS: Normal to inspection, nondistended, normoactive bowel sounds present and non-tender Extremity: COMMON NORMALS: no pedal edema Psych: COMMON NORMALS: mental status grossly normal Data 05/05/23 04:25 05/05/23 04:25 A&P Assessment and plan (1) Acute anemia: (2) Chronic anticoagulation: (3) Breakthrough seizure: (4) Aspiration into airway: (5) Unresponsiveness: (6) Bradycardia: (7) History of pulmonary embolism: (8) Developmental delay, profound: (9) Acute respiratory failure: Plan Acute respiratory failure -Likely from aspiration event from his breakthrough seizure - resolved -continue augmentin Bradycardia -Likely from aspiration event, tele -serial EKG/trop negative. -resolved Breakthrough seizure -Seizure precautions -Aspiration precautions -Keppra thousand twice daily, likely discharge 1000 twice daily -Likely breakthrough seizure leading to significant aspiration event respiratory failure and bradycardia, which have resolved currently. -responsive, but does not follow commands and according to bedside interface designer this is his baseline Acute anemia, with evidence of iron deficiency anemia, on anticoagulation Eliquis, Hemoccult stools positive in the emergency room -Has evidence of iron deficiency anemia -Takes Eliquis for history of PE 12/29 COVID 01/17. has continued on eliquis since then -Hold anticoagulation. desire to discontinue eliquis. -Protonix, Carafate -Started on IV iron. will return to GI lab for further IV infusions on 05/08 and 05/15 as scheduled -IV fluids -Hemoglobin 7.2 status post 1 unit PRBC, currently 7.6, will give an additional pRBC unit today and re-eval -Monitor clinical status closely -Status post EGD which showed esophagitis. History of pulmonary embolism, back in 2020 when he had COVID, D-dimer 0.53, venous ultrasound unremarkable, likely we can discontinue anticoagulation at discharge, but will have to go over this with her caregiver, and patient's healthcare power of transactional attorney who is the guardianship of the state on discharge Developmental delay Patient is awarded guardianship of the formerly [facility]. Keily Celaya [phone]. Left VM SCD for DVT prophylaxis Attestations Medical Necessity Statement*: Patient requires hospitalization for acute respiratory failure, bradycardia, anemia. will require 1 additional [facility] Coding Level of Care Code Acute Code for Chg Fwd Diagnoses Acute anemia D64.9 Chronic anticoagulation Z79.01 Breakthrough seizure G40.919 Aspiration into airway T17.908A Unresponsiveness R41.89 Bradycardia R00.1 History of pulmonary embolism Z86.711 Developmental delay, profound R62.50 Acute respiratory failure J96.00
[2023-05-05] MEDS: iron sucrose 200 MG in sodium chloride 0.9% (100 ml) 100 ML 220 MG IV (20:02)
[2023-05-05 23:13] LABS: Hematocrit 34.6 % (42.0-52.0); Hemoglobin 9.5 g/dL (11.7-16.6)
[2023-05-06] VITALS (9 sets, daily range): BP systolic 135–176; BP diastolic 68–84; PULSE 75–91; RESP 15–18; TEMP 36.8–37.7; O2SAT 90–97
[2023-05-06] MEDS: sucralfate 1 gm Tablet PO ×2 (05:18→18:43)
[2023-05-06 05:34] LABS: Basophils # 0.1 10^3/uL (0.0-0.1); Basophils % 0.7 %; Eosinophils # 0.2 10^3/uL (0.0-0.8); Eosinophils % 2.2 %; Hematocrit 35.6 % (42.0-52.0); Hemoglobin 9.6 g/dL (11.7-16.6); Lymphocytes # 1.5 10^3/uL (0.8-4.8); Lymphocytes % 15.6 %; Mean Corpuscular Hemoglobin 20.3 pg (28.0-34.0); Mean Corpuscular Volume 75.1 fl (80-94); Monocytes # 0.9 10^3/uL (0.2-0.9); Monocytes % 9.5 %; Neutrophils # 6.86 10^3/uL (1.8-7.7); Neutrophils % 71.4 %; Nucleated Red Blood Cells % 0.3 %; Platelet Count 251 10^3/cmm (130-400); Red Blood Count 4.74 10^6/uL (4.1-5.3); Red Cell Distribution Width 26.8 % (12.1-15.1); White Blood Count 9.6 10^3/uL (4.0-10.0)
[2023-05-06 05:59] LABS: Alanine Aminotransferase 7 U/L (0-41); Albumin Level 3.5 g/dL (3.5-5.2); Alkaline Phosphatase 112 U/L (40-130); Anion Gap 14.4 (5-19); Aspartate Amino Transferase 20 U/L (0-40); Blood Urea Nitrogen 7 mg/dL (8-23); Calcium 8.5 mg/dL (8.5-10.5); Carbon Dioxide 23 mmol/L (22-29); Chloride 113 mmol/L (98-107); Globulin 2.8 g/dL (1.3-4.6); Glomerular Filtration Rate 135.2 mL/min (90-130); Glucose 87 mg/dL (65-115); Osmolality Calculated 299 mOsm/kg (285-295); Potassium 4.4 mmol/L (3.5-5.1); Sodium 146 mmol/L (136-145); Total Bilirubin 0.5 mg/dL (0.15-1.2); Total Protein 6.3 g/dL (6.6-8.7)
[2023-05-06] MEDS: amoxicillin-clav 875-125 mg Tablet 1 TAB PO ×2 (08:47→18:43)
[2023-05-06] MEDS: pantoprazole DR 40 mg Tablet PO ×2 (08:47→18:43)
--- NOTE | 2023-05-06 10:44 | P.PN_ITS ---
Subjective Subjective: Patient was seen this morning, caregiver at bedside, no hematemesis episodes overnight no bloody stools overnight per nursing staff Discussed with Guardianship Rama Celaya y evening. She was agreeable to discontinuing the Eliquis given lack of utility and necessity. Hgb has improved and pt is ready for discharge; however truck terminal manager care unable to take him due to weekend status. Medications: Reviewed: Yes Vitals/I&O/Wt Last Vital Signs Temp 98.3 F 05/06/23 07:43 Pulse 77 05/06/23 08:30 Resp 18 05/06/23 08:30 BP 161/80 05/06/23 07:43 Pulse Ox 96 05/06/23 08:30 O2 Del Method Room Air 05/06/23 08:30 O2 Flow Rate 2 05/04/23 20:00 05/05/23 05/06/23 05/06/23 22:59 06:59 14:59 Intake Total 470 / 940 110 / 1050 480 / 480 Balance 470 / 940 110 / 1050 480 / 480 Physical Exam Const: COMMON NORMALS: no acute distress Resp: COMMON NORMALS: normal respiratory effort, No retractions, No use of accessory muscles and clear to auscultation bilaterally AUSCULTATION: clear to auscultation bilaterally Cardio: COMMON NORMALS: regular rate, regular rhythm, S1 normal heart sound present and S2 normal heart sound present RATE: regular rate RHYTHM: regular rhythm HEART SOUNDS: S1 normal heart sound present and S2 normal heart sound present GI: COMMON NORMALS: Normal to inspection, nondistended, normoactive bowel sounds present and non-tender Extremity: COMMON NORMALS: no pedal edema Psych: COMMON NORMALS: mental status grossly normal Urinary Catheter Management: Lamb: Cath Placed During This Visit: yes, but has since been removed by the nurse Reason for Continuing Indwelling Catheter: Decision to DC Catheter Urinary Catheter Date of Insertion: 05/02/23 Urinary Catheter Time of Insertion: 11:38 Date Urinary Catheter Removed: 05/04/23 Time Urinary Catheter Discontinued: 07:30 Data 05/06/23 04:54 05/06/23 04:54 A&P Assessment and plan (1) Acute anemia: (2) Chronic anticoagulation: (3) Breakthrough seizure: (4) Aspiration into airway: (5) Unresponsiveness: (6) Bradycardia: (7) History of pulmonary embolism: (8) Developmental delay, profound: (9) Acute respiratory failure: Plan Acute anemia, with evidence of iron deficiency anemia, on anticoagulation Eliquis, Hemoccult stools positive in the emergency room -Has evidence of iron deficiency anemia -Takes Eliquis for history of PE 12/29 COVID 01/17. has continued on eliquis since then. Discussed with Guardianship. can discontinue at time of discharge -Protonix, Carafate -Started on IV iron. will return to GI lab for further IV infusions on 05/08 and 05/15 as scheduled -IV fluids -Hemoglobin 7.2 status post 1 unit PRBC, given additional 1u pRBC yday 12/29 hgb of 7.6. Pt responded well. current Hgb 9.6. -no signs of bleeding -Monitor clinical status closely -Status post EGD which showed esophagitis. History of pulmonary embolism, back in 2020 when he had COVID, D-dimer 0.53, venous ultrasound unremarkable. Will d/c eliquis at discharge. Acute respiratory failure -Likely from aspiration event from his breakthrough seizure - resolved -continue augmentin Bradycardia -Likely from aspiration event, tele -serial EKG/trop negative. -resolved Breakthrough seizure -Seizure precautions -Aspiration precautions -Keppra thousand twice daily, likely discharge 1000 twice daily -Likely breakthrough seizure leading to significant aspiration event respiratory failure and bradycardia, which have resolved currently. -responsive, but does not follow commands and according to bedside blade balancer this is his baseline Developmental delay Patient is awarded guardianship of the state. Keily Celaya [phone]. Left VM SCD for DVT prophylaxis Plan: -monitor CBC qAM -discharge on monday. -scheduled IV iron infusions at GI lab on 05/08 and 05/15 already organized. -Discontinue eliquis at time of discharge Attestations Medical Necessity Statement*: requires hospitalization due to [facility] inability to accept patient over weekend. Coding Level of Care Code 33042 Diagnoses Acute anemia D64.9 Chronic anticoagulation Z79.01 Breakthrough seizure G40.919 Aspiration into airway T17.908A Unresponsiveness R41.89 Bradycardia R00.1 History of pulmonary embolism Z86.711 Developmental delay, profound R62.50 Acute respiratory failure J96.00
[2023-05-06] MEDS: iron sucrose 200 MG in sodium chloride 0.9% (100 ml) 100 ML 220 MG IV (17:12)
[2023-05-07] VITALS (7 sets, daily range): BP systolic 143–165; BP diastolic 75–95; PULSE 73–81; RESP 16–18; TEMP 36.5–37.3; O2SAT 90–96
[2023-05-07] MEDS: sucralfate 1 gm Tablet PO ×2 (04:32→17:07)
[2023-05-07 05:17] LABS: Basophils # 0.1 10^3/uL (0.0-0.1); Basophils % 0.9 %; Eosinophils # 0.3 10^3/uL (0.0-0.8); Eosinophils % 2.8 %; Hematocrit 34.4 % (42.0-52.0); Hemoglobin 9.2 g/dL (11.7-16.6); Lymphocytes # 1.4 10^3/uL (0.8-4.8); Lymphocytes % 14.6 %; Mean Corpuscular HGB Conc 26.7 g/dL (30.0-36.0); Mean Corpuscular Hemoglobin 21.2 pg (28.0-34.0); Mean Corpuscular Volume 79.3 fl (80-94); Monocytes % 9.7 %; Neutrophils # 7.01 10^3/uL (1.8-7.7); Neutrophils % 71.5 %; Nucleated Red Blood Cells % 0.2 %; Platelet Count 240 10^3/cmm (130-400); Red Blood Count 4.34 10^6/uL (4.1-5.3); Red Cell Distribution Width 28.9 % (12.1-15.1); White Blood Count 9.8 10^3/uL (4.0-10.0)
[2023-05-07 06:03] LABS: Slide Review Slide Review Perform
[2023-05-07 06:12] LABS: Add RBC Morph Yes; RBC Morph Comp No
[2023-05-07 06:13] LABS: Anisocytosis 3+; Macrocytosis 1+; Microcytosis 1+
[2023-05-07 06:14] LABS: Schistocytes 1+
[2023-05-07 06:15] LABS: Hypochromasia 2+; Polychromasia Trace
[2023-05-07 06:17] LABS: Burr Cells Trace; Tear Drop Cells Trace
[2023-05-07] MEDS: amoxicillin-clav 875-125 mg Tablet 1 TAB PO ×2 (08:31→17:07)
[2023-05-07] MEDS: pantoprazole DR 40 mg Tablet PO ×2 (08:31→17:07)
--- NOTE | 2023-05-07 10:29 | PC.NURSE ---
Dr Holloway informed of IV access loss on pt, MD okayed pt to remain without IV and stated keppra will be made PO.
--- NOTE | 2023-05-07 10:45 | P.PN_ITS ---
Subjective Subjective: Patient was seen this morning, caregiver at bedside. per caregiver he is back to his baseline. no hematemesis episodes overnight no bloody stools overnight per nursing staff Medications: Reviewed: Yes Vitals/I&O/Wt Last Vital Signs Temp 97.9 F 05/07/23 08:29 Pulse 73 05/07/23 08:29 Resp 18 05/07/23 08:29 BP 165/92 05/07/23 08:29 Pulse Ox 91 05/07/23 08:29 O2 Del Method Room Air 05/07/23 08:29 O2 Flow Rate 2 05/04/23 20:00 05/06/23 05/07/23 05/07/23 22:59 06:59 14:59 Intake Total 460 / 1180 110 / 1290 120 / 120 Balance 460 / 1180 110 / 1290 120 / 120 Physical Exam Const: COMMON NORMALS: no acute distress Resp: COMMON NORMALS: normal respiratory effort, No retractions, No use of accessory muscles and clear to auscultation bilaterally AUSCULTATION: clear to auscultation bilaterally Cardio: COMMON NORMALS: regular rate, regular rhythm, S1 normal heart sound present and S2 normal heart sound present RATE: regular rate RHYTHM: regular rhythm HEART SOUNDS: S1 normal heart sound present and S2 normal heart sound present GI: COMMON NORMALS: Normal to inspection, nondistended, normoactive bowel sounds present and non-tender Extremity: COMMON NORMALS: no pedal edema Psych: COMMON NORMALS: mental status grossly normal Urinary Catheter Management: Lamb: Cath Placed During This Visit: yes, but has since been removed by the nurse Reason for Continuing Indwelling Catheter: Decision to DC Catheter Urinary Catheter Date of Insertion: 05/02/23 Urinary Catheter Time of Insertion: 11:38 Date Urinary Catheter Removed: 05/04/23 Time Urinary Catheter Discontinued: 07:30 Data 05/07/23 05:10 05/06/23 04:54 A&P Assessment and plan (1) Acute anemia: (2) Chronic anticoagulation: (3) Breakthrough seizure: (4) Aspiration into airway: (5) Unresponsiveness: (6) Bradycardia: (7) History of pulmonary embolism: (8) Developmental delay, profound: (9) Acute respiratory failure: Plan Acute anemia, with evidence of iron deficiency anemia, on anticoagulation Eliquis, Hemoccult stools positive in the emergency room -Has evidence of iron deficiency anemia -Takes Eliquis for history of PE 12/29 COVID 01/17. has continued on eliquis since then. Discussed with Guardianship. can discontinue at time of discharge -Protonix, Carafate -Started on IV iron. will return to GI lab for further IV infusions on 05/08 and 05/15 as scheduled -IV fluids -Hemoglobin 7.2 status post 1 unit PRBC, given additional 1u pRBC yday 12/29 hgb of 7.6. Pt responded well. current Hgb 9.2 -no signs of bleeding -Monitor clinical status closely -Status post EGD which showed esophagitis. History of pulmonary embolism, back in 2020 when he had COVID, D-dimer 0.53, silva ous ultrasound unremarkable. Will d/c eliquis at discharge. Acute respiratory failure -Likely from aspiration event from his breakthrough seizure - resolved -continue augmentin Bradycardia -Likely from aspiration event, tele -serial EKG/trop negative. -resolved Breakthrough seizure -Seizure precautions -Aspiration precautions -Keppra changed from IV to PO -Likely breakthrough seizure leading to significant aspiration event respiratory failure and bradycardia, which have resolved currently. -responsive, but does not follow commands and according to bedside chief scientific officer this is his baseline Developmental delay Patient is awarded guardianship of the [facility]. Keily Celaya [phone]. Left VM SCD for DVT prophylaxis Plan: -monitor CBC qAM -discharge on monday. -scheduled IV iron infusions at GI lab on 05/08 and 05/15 already organized. -Discontinue eliquis at time of discharge Attestations Medical Necessity Statement*: requires hospitalization due to [facility] inability to accept patient over weekend. Coding Level of Care Code Acute Code for Chg Fwd Diagnoses Acute anemia D64.9 Chronic anticoagulation Z79.01 Breakthrough seizure G40.919 Aspiration into airway T17.908A Unresponsiveness R41.89 Bradycardia R00.1 History of pulmonary embolism Z86.711 Developmental delay, profound R62.50 Acute respiratory failure J96.00
[2023-05-07] MEDS: levETIRAcetam 500 mg Tablet 1000 MG PO (17:07)
[2023-05-08 04:00] VITALS: BP 146/81; PULSE 76; RESP 17; TEMP 36.1; O2SAT 97
[2023-05-08] MEDS: sucralfate 1 gm Tablet PO (06:03)
[2023-05-08 07:20] VITALS: BP 150/80; PULSE 81; RESP 18; O2SAT 99
[2023-05-08] MEDS: levETIRAcetam 500 mg Tablet 1000 MG PO (08:11)
[2023-05-08] MEDS: pantoprazole DR 40 mg Tablet PO (08:11)
[2023-05-08] MEDS: amoxicillin-clav 875-125 mg Tablet 1 TAB PO (08:11)
[2023-05-08 08:33] VITALS: PULSE 83; RESP 16; O2SAT 99
[2023-05-08 11:40] VITALS: BP 156/81; PULSE 76; RESP 20; TEMP 37.5; O2SAT 98
--- NOTE | 2023-05-08 12:44 | P.DS_ITS ---
Discharge Providers Date of Admission: 05/02/23 13:51 Date of Discharge: May 08, 2023 Attending Provider at Admission: Doni Dao MD Attending Provider at Discharge: Kortney Young MD Primary Care Provider: MANDI Stewart Diagnoses at Discharge Discharge Diagnosis (1) Acute anemia: Status: Acute (2) Chronic anticoagulation: Status: Acute (3) Breakthrough seizure: Status: Acute (4) Aspiration into airway: Status: Acute (5) Unresponsiveness: Status: Acute (6) Bradycardia: Status: Acute (7) History of pulmonary embolism: Status: Acute (8) Developmental delay, profound: Status: Acute (9) Acute respiratory failure: Status: Acute Reason for Visit Reason for Visit: AMS Brief History: Jorge Luis Lucas is a 67 year old male with a past medical history of developmental delay, he is not alert to self, under the care of guardianship of the state, history of PEG tube placement which was subsequently removed, history of pulmonary embolism, on Eliquis, who presented to [facility] with survey research analyst for evaluation of breakthrough seizures, and hypoxia, and unresponsiveness.?Hospital course as below: Hospital Course Hospital Course 1. Acute respiratory failure -Likely from aspiration event from his breakthrough seizure -this is now resolved -Patient was treated with piperacillin/tazobactam initially, transition to oral Augmentin once he started to improve Currently saturating 98% on room air. Chest x-ray shows bilateral lower lung volumes, otherwise clear Tmax noted to be 99.5 to 99.8. Checking respiratory viral panel prior to discharge. ?-He has received a course of antibiotics for 7 days for aspiration pneumonia. We will discontinue antibiotics at discharge as completed adequate treatment. - he is currently on a soft mechanical diet, recommendation to continue the same consistency upon discharge.. 2. Acute anemia, with evidence of iron deficiency anemia, on anticoagulation Eliquis admission. Hemoccult stools positive in the emergency room Presenting hemoglobin at 6.1 upon admission. He has received 2 packed red blood cell transfusion and IV iron infusion for 5 days during the course of admission. Underwent EGD on May 03, 2023 which showed diffuse esophagitis, large hiatal hernia. Biopsy was not performed as patient had just taken Eliquis in the last 24 hours. Active bleeding was identified. Eliquis has been discontinued at discharge due to anemia and diffuse esophagitis which will make him a high risk for future bleeding. He is being discharged on Protonix and Carafate. 3. History of pulmonary embolism, back in 2020 when he had COVID, D-dimer 0.53, venous ultrasound unremarkable. This was likely a provoked episode related to COVID. Weighing the risks and benefits, anticoagulation has been discontinued with Eliquis at this time 4. Breakthrough seizures, patient is planned to follow up with neurology- da feliz with Dr. Hamilton in [place]. Keppra dose increased to 1000 mg BID 5. Bradycardia -Likely from aspiration event, tele resolved currently sinus rhythm at 76 bpm 6. Thrombophlebitis left upper arm , no DVT, rest arm, ice and elevation Developmental delay, back at baseline Patient is awarded guardianship of the [facility]. Keily Celaya [phone]. All updates discussed with kang at bedside Physical Exam Narrative: General: No acute distress, non verbal at baseline, withdraws while being examined, pulls sheet ove r is head HEENT: PERRLA, pupils bilaterally equal and reactive, pallors not present Chest: Normal vesicular breath sounds, no added sounds, equal good air entry bilaterally CVS: S1-S2 regular, no murmurs, no tachycardia, no gallops, no rubs Abdomen: Soft, nontender, no organomegaly, bowel sounds present Urinary Catheter Management: Lamb: Cath Placed During This Visit: yes, but has since been removed by the nurse Reason for Continuing Indwelling Catheter: Decision to DC Catheter Urinary Catheter Date of Insertion: 05/02/23 Urinary Catheter Time of Insertion: 11:38 Date Urinary Catheter Removed: 05/04/23 Time Urinary Catheter Discontinued: 07:30 Discharge Data Studies Completed and Pending Completed Studies During Hospitalization Category Date Time Status CT abdomen pelvis w con* [id number] Stat Cat Scan 05/02/23 12:45 Completed XR chest 1V portable [id number] Stat Exams 05/02/23 [place] [id number] Stat Ultrasound 05/03/23 13:51 Completed Pending at discharge Category Date Time Status CBC Auto Diff [Complete Blood Count w/Auto] AM LABS Lab 05/08/23 04:00 Ordered Respiratory Panel 2 Stat Lab 05/08/23 12:03 Received Radiology Impressions Abdomen/Pelvis CT 05/02/23 12:45 IMPRESSION: 1. Large esophageal hiatal hernia with intrathoracic stomach in the RIGHT lower lobe. This is similar to previous. 2. Prominent gallbladder calculi near the gallbladder neck similar to previous. No gallbladder wall thickening. 3. Mild diffuse fatty infiltration liver. 4. Mild sigmoid constipation. 5. No hydronephrosis in either kidney. 6. Lamb catheter. 7. Chronic interstitial changes in the lung bases appears unchanged. Laboratory Results WBC 9.8 10^3/uL (4.0-10.0) 05/07/23 05:10 RBC 4.34 10^6/uL (4.1-5.3) 05/07/23 05:10 Hgb 9.2 g/dL (11.7-16.6) L 05/07/23 05:10 Hct 34.4 % (42.0-52.0) L 05/07/23 05:10 MCV 79.3 fl (80-94) L D 05/07/23 05:10 MCH 21.2 pg (28.0-34.0) L 05/07/23 05:10 MCHC 26.7 g/dL (30.0-36.0) L 05/07/23 05:10 RDW 28.9 % (12.1-15.1) H 05/07/23 05:10 Plt Count 240 10^3/cmm (130-400) 05/07/23 05:10 MPV TNP 05/07/23 05:10 Neut % (Auto) 71.5 % 05/07/23 05:10 Lymph % (Auto) 14.6 % 05/07/23 05:10 Dillon % (Auto) 9.7 % 05/07/23 05:10 Eos % (Auto) 2.8 % 05/07/23 05:10 Baso % (Auto) 0.9 % 05/07/23 05:10 Reticulocyte % (Auto) 1.3 % (0.5-2.0) 05/02/23 11:23 Neut # (Auto) 7.01 10^3/uL (1.8-7.7) 05/07/23 05:10 Lymph # (Auto) 1.4 10^3/uL (0.8-4.8) 05/07/23 05:10 Dillon # (Auto) 1.0 10^3/uL (0.2-0.9) H 05/07/23 05:10 Eos # (Auto) 0.3 10^3/uL (0.0-0.8) 05/07/23 05:10 Baso # (Auto) 0.1 10^3/uL (0.0-0.1) 05/07/23 05:10 Nucleated RBC % (auto) 0.2 % 05/07/23 05:10 Nucleated RBCs # 0.0 /100WBC 05/07/23 05:10 Polychromasia Trace 05/07/23 05:10 Hypochromasia 2+ H 05/07/23 05:10 Anisocytosis 3+ H 05/07/23 05:10 Microcytosis 1+ H 05/07/23 05:10 Macrocytosis 1+ H 05/07/23 05:10 Tear Drop Cells Trace 05/07/23 05:10 [place] Cells Trace 05/07/23 05:10 Schistocytes 1+ H 05/07/23 05:10 PT 14.80 SECONDS (12.1-14.9) 05/02/23 11:23 INR 1.12 (0.8-1.2) 05/02/23 11:23 D-Dimer 0.53 ug/mIFEU (0-0.59) 05/03/23 15:27 Sodium 146 mmol/L (136-145) H 05/06/23 04:54 Potassium 4.4 mmol/L (3.5-5.1) 05/06/23 04:54 Chloride 113 mmol/L (98-107) H 05/06/23 04:54 Carbon Dioxide 23 mmol/L (22-29) 05/06/23 04:54 Anion Gap 14.4 (5-19) 05/06/23 04:54 BUN 7 mg/dL (8-23) L 05/06/23 04:54 Creatinine 0.6 mg/dL (0.7-1.2) L 05/06/23 04:54 GFR Calculation 135.2 mL/min (90-130) H 05/06/23 04:54 Glucose 87 mg/dL (65-115) 05/06/23 04:54 Estimat Average Glucose 117 05/02/23 11:23 Hemoglobin A1c 5.7 % (4.0-6.0) 05/02/23 11:23 Calculated Osmolality 299 mOsm/kg (285-295) H 05/06/23 04:54 Lactic Acid 4.6 mmol/L (0.5-2.2) H* 05/02/23 11:23 Lactic Acid (Sepsis) 2.2 mmol/L (0.5-2.2) 05/02/23 13:00 Calcium 8.5 mg/dL (8.5-10.5) 05/06/23 04:54 Phosphorus 2.6 mg/dL (2.5-4.5) 05/05/23 04:25 Magnesium 1.9 mg/dL (1.7-2.3) 05/05/23 04:25 Iron 10 ug/dL (59-158) L 05/02/23 11:23 Ferritin 8 ng/mL (30-400) L 05/02/23 11:23 Total Bilirubin 0.5 mg/dL (0.15-1.2) 05/06/23 04:54 AST 20 U/L (0-40) 05/06/23 04:54 ALT 7 U/L (0-41) 05/06/23 04:54 Alkaline Phosphatase 112 U/L (40-130) 05/06/23 04:54 Creatine Kinase 36 U/L (39-308) L 05/02/23 11:23 Troponin T Baseline 12 ng/L (0-15) 05/02/23 11:23 Troponin T 120 Minute 11.65 ng/L (0-15) 05/02/23 13:00 Delta Troponin T -0.35 ABS# (0-10) L 05/02/23 13:00 Troponin T Hi Sens 6Hr 11.61 ng/L (0-15) 05/02/23 18:45 Troponin T Hi Sens 6Hr Delta -0.39 ng/L (0-12) L 05/02/23 18:45 Total Protein 6.3 g/dL (6.6-8.7) L 05/06/23 04:54 Albumin 3.5 g/dL (3.5-5.2) 05/06/23 04:54 Globulin 2.8 g/dL (1.3-4.6) 05/06/23 04:54 Triglycerides 59 mg/dL (0-150) 05/02/23 11:23 Cholesterol 151 mg/dL (0-200) 05/02/23 11:23 LDL Cholesterol, Calc 91 mg/dL (50-129) 05/02/23 11: HDL Cholesterol 48 mg/dL (60-100) L 05/02/23 11: LDL/HDL Ratio 1.90 RATIO (0.00-3.22) 05/02/23 11: Cholesterol/HDL Ratio 3.15 mg/dL (1.0-5.00) 05/02/23 11:23 Lipase 30 U/L (13-60) 05/02/23 11:23 Vitamin B12 612 pg/mL (232-1245) 05/02/23 11:23 Folate 7.4 ng/mL (4.5-32.2) 05/02/23 11: TSH 5.10 uIU/mL (0.27-4.20) H 05/02/23 11: Free T4 1.40 ng/dL (0.82-1.77) 05/03/23 02:17 Free T3 2.8 PG/ML (2.0-4.4) 05/03/23 02:17 Urine Color Yellow (Yellow) 05/02/23 16:46 Urine Appearance Clear (CLEAR) 05/02/23 16:46 Urine pH 6.5 (5-7) 05/02/23 16:46 Ur Specific [place] 1.010 (1.005-1.030) 05/02/23 16:46 Urine Protein Neg (Negative) 05/02/23 16:46 Urine Glucose (UA) Norm (Normal) 05/02/23 16:46 Urine Ketones Negative (Negative) 05/02/23 16:46 Urine Blood Neg (Negative) 05/02/23 16:46 Urine Nitrate Negative (Negative) 05/02/23 16:46 Urine Bilirubin Neg (Negative) 05/02/23 16:46 Urine Urobilinogen Norm mg/dL (Negative) 05/02/23 16:46 Ur Leukocyte Esterase Negative (Negative) 05/02/23 16:46 Serum Ketones Negative (Negative) 05/02/23 11:23 Blood Type A Positive 05/02/23 13:00 Rho(D) Type Positive 05/02/23 13:00 Antibody Screen Negative 05/02/23 13:00 Crossmatch See Detail 05/02/23 13:00 Vitals Last Vital Signs Temp 99.5 F 05/08/23 11:40 Pulse 76 05/08/23 11:40 Resp 20 H 05/08/23 11:40 BP 156/81 05/08/23 11:40 Pulse Ox 98 05/08/23 11:40 O2 Del Method Room Air 05/08/23 11:40 O2 Flow Rate 2 05/04/23 20:00 Discharge Plan Discharge Patient Disposition: Home Condition: Stable Prescriptions: New sucralfate 1 gram Tablet 1 g PO Q12H 30 Days Qty: 60 0RF pantoprazole 40 mg Tablet,Delayed Release (Dr/Ec) 40 mg PO BID 30 Days Qty: 60 0RF Continued docosanol [Abreva] 10 % Cream 1 applic TOPICAL DAILY PRN (Reason: Cold Sores) sennosides 8.6 mg Tablet 8.6 mg PO DAILY@09 dextromethorphan-guaifenesin [Tussin DM] 10-100 mg/5 mL syrup 5 ml PO Q4H PRN (Reason: Cough) menthol-zinc oxide [Calmoseptine] 0.44-20.6 % Ointment 1 applic TOPICAL TID PRN (Reason: ULCER/SKIN BREAKDOWN) perampanel 8 mg Tablet 8 mg PO DAILY@20 Qty: 30 0RF multivitamin Tablet 1 tab PO DAILY olopatadine 0.2 % Drops 2 drp OPHTHALMIC (EYE) DAILY PRN (Reason: Allergy Symptoms) olopatadine 0.7 % Drops 2 drp OPHTHALMIC (EYE) DAILY PRN (Reason: Dry Eyes) Changed levetiracetam 100 mg/mL solution 1,000 mg PO BID@, 30 Days Qty: 200 0RF Discontinued Eliquis 5 mg tablet 5 mg PO BID@ famotidine 20 mg Tablet 20 mg PO DAILY Discharge Orders: Discharge Order (Routine); Ordered 05/08/23 Ordered By: Kortney Young Referrals: Alecia Solorio FNP [Primary Care Provider] - Discharge Diet: Advance as tolerated and As Directed Discharge Activity: Resume usual activity Patient Instructions: Hyponatremia (ED), Benzodiazepine Use Disorder (ED), Dementia (ED), Non-diabetic Hypoglycemia (ED), Hypoglycemia in a Person with Diabetes (ED), Concussion (ED), Alcohol Intoxication (ED), Subarachnoid Hemorrhage (GEN), Altered Mental Status (ED), GI Discharge Instructions, Opioid Safety Activity Restrictions/Additional Instructions: Outpatient Infusions with GI Lab MondayMay 08 at 1 pm, infusion will last approx. 30 min MondayMay 15 at 1pm Discharge Attestations Time Spent in Discharge Care*: greater than 30 min Status at Discharge: Cognitive status at discharge: severely impaired cognition , Behavioral status at discharge: cooperative , Quality Metrics Clinical Quality Measures [ No reported AMI, CVA or VTE this stay] Coding Level of Care Code Acute Code for Chg Fwd Diagnoses Acute anemia D64.9 Chronic anticoagulation Z79.01 Breakthrough seizure G40.919 Aspiration into airway T17.908A Unresponsiveness R41.89 Bradycardia R00.1 History of pulmonary embolism Z86.711 Developmental delay, profound R62.50 Acute respiratory failure J96.00
[2023-05-08 13:54] LABS: Adenovirus Not Detected (NOT DETECT); Chlamydia Pneumoniae Not Detected (NOT DETECT); Coronavirus 229E,HKU1,NL63,OC4 Not Detected (NOT DETECT); Human Metapneumovirus Not Detected (NOT DETECT); Human Rhinovirus/Enterovirus Not Detected (NOT DETECT); Influenza A Not Detected (NOT DETECT); Influenza A H1 Not Detected (NOT DETECT); Influenza A H1-2009 Not Detected (NOT DETECT); Influenza A H3 Not Detected (NOT DETECT); Influenza B Not Detected (NOT DETECT); Mycoplasma Pneumoniae Not Detected (NOT DETECT); Parainfluenza Virus Type 1 Not Detected (NOT DETECT); Parainfluenza Virus Type 2 Not Detected (NOT DETECT); Parainfluenza Virus Type 3 Not Detected (NOT DETECT); Parainfluenza Virus Type 4 Not Detected (NOT DETECT); Respiratory Syncytial Virus A Not Detected (NOT DETECT); Respiratory Syncytial Virus B Not Detected (NOT DETECT); SARS-COV-2 Not Detected (NOT DETECT)
== END 2023-05-08 16:22 | disposition home or self-care (01) | DRG 811 ==
LOC: ER 11:31 → ER IP 14:30 → ICU 15:05 → MEDSURG 05-04 15:16
PROVIDERS: Family Medicine; Surgery; Admitting Provider Family Medicine; Emergency Provider Family Medicine; PCP Nurse Practitioner Family; Visit Provider Student in an Organized Health Care Education/Training Program
PROC: 0DJ08ZZ Inspection of Upper Intestinal Tract, Via Natural or Artificial Opening Endoscopic (ICD-10-PCS; CPT 43235; principal; 2023-05-03 10:45)
DX: D50.9 Iron deficiency anemia, unspecified (principal); J69.0 Pneumonitis due to inhalation of food and vomit; J96.00 Acute respiratory failure, unspecified whether with hypoxia or hypercapnia; G40.802 Other epilepsy, not intractable, without status epilepticus; R00.1 Bradycardia, unspecified; R62.59 Other lack of expected normal physiological development in childhood; Z86.711 Personal history of pulmonary embolism; Z79.01 Long term (current) use of anticoagulants; Z86.16 Personal history of COVID-19; D69.6 Thrombocytopenia, unspecified; I80.8 Phlebitis and thrombophlebitis of other sites; K20.90 Esophagitis, unspecified without bleeding; K44.9 Diaphragmatic hernia without obstruction or gangrene; R19.5 Other fecal abnormalities
CPT/HCPCS: 36415; 36430; 43235; 51702; 71045; 74177; 80048; 80053; 80061; 81003; 82009; 82550; 82607; 82728; 82746; 83036; 83540; 83605; 83690; 83735; 84100; 84439; 84443; 84481; 84484; 85014; 85018; 85025; 85045; 85378; 85610; 86850; 86900; 86920; 87040; 87486; 87581; 87633; 92526; 92610; 93970; 94664; 96365; 96372; 96376; 99285; C9113; J1630; J1756; J1953; J2060; J2543; J2704; J3480; J7042; P9016; P9040; Q9967

== ENCOUNTER 2023-06-20 13:27 | Oncology outpatient (recurring) (ONCR) | payer MEDICAID, SELFPAY ==
[2023-06-20 15:55] LABS: Basophils # 0.1 10^3/uL (0.0-0.1); Basophils % 0.7 %; Eosinophils # 0.1 10^3/uL (0.0-0.8); Eosinophils % 1.2 %; Hematocrit 44.7 % (42.0-52.0); Hemoglobin 13.3 g/dL (11.7-16.6); Lymphocytes # 1.5 10^3/uL (0.8-4.8); Lymphocytes % 21.7 %; Mean Corpuscular HGB Conc 29.8 g/dL (30.0-36.0); Mean Corpuscular Hemoglobin 26.4 pg (28.0-34.0); Mean Corpuscular Volume 88.7 fl (80-94); Mean Platelet Volume 10.6 fL (7.4-10.4); Monocytes # 0.5 10^3/uL (0.2-0.9); Neutrophils # 4.62 10^3/uL (1.8-7.7); Neutrophils % 69.1 %; Nucleated Red Blood Cells % 0 %; Platelet Count 244 10^3/cmm (130-400); Red Blood Count 5.04 10^6/uL (4.1-5.3); Red Cell Distribution Width 25.6 % (12.1-15.1); White Blood Count 6.7 10^3/uL (4.0-10.0)
== END 2023-06-26 23:59 | disposition home or self-care (01) ==
PROVIDERS: PCP Nurse Practitioner Family; Visit Provider Internal Medicine Medical Oncology
DX: D50.9 Iron deficiency anemia, unspecified (principal)
CPT/HCPCS: 36415; 85025; 99203

== ENCOUNTER → 2023-08-22 08:04 | Outpatient (BNVA) | payer MEDICAID, SELFPAY | PROVIDERS: PCP Nurse Practitioner Family; Visit Provider Surgery | DX: K92.2 Gastrointestinal hemorrhage, unspecified (principal) | CPT/HCPCS: 99203 ==

== ENCOUNTER 2023-09-14 09:18 | Day surgery (SDC) | payer MEDICAID, SELFPAY ==
[2023-09-14 09:46] VITALS: BP 165/92; PULSE 70; RESP 18; TEMP 36.4; O2SAT 96; BMI 25.1
--- NOTE | 2023-09-14 09:59 | W.PM.OPSUD ---
Surgery/Procedure H&P Update DATE OF PROCEDURE: September 14, 2023 DATE H&P PERFORMED: 08/22/23 H&P UPDATE INFORMATION: I have reviewed H&P completed within last 30 days, I have examined patient prior to procedure and No changes to prior documentation PLANNED PROCEDURE: Operation Date: 09/14/23 10:15 Proposed Procedures p 29738 egd 01796 colon, G0121 screen colon A risk K92.2,D50.9(Not Applicable) - DO rikki Gamboa Colonoscopy(Not Applicable) - Tk Marino DO
--- NOTE | 2023-09-14 10:12 | P.ANESASSM_ITS ---
Pre-Anesthetic Assessment Height/Weight: Height 1.8 m Weight 81.647 kg Temp Pulse Resp BP Pulse Ox O2 Del Method 97.5 F L 70 18 165/92 96 Room Air 09/14/23 09:46 09/14/23 09:46 09/14/23 09:46 09/14/23 09:46 09/14/23 09:46 09/14/23 09:46 Operation Date: 09/14/23 10:15 Proposed Procedures p 48069 egd 06324 colon, G0121 screen colon A risk K92.2,D50.9(Not Applicable) - DO rikki Gamboa Colonoscopy(Not Applicable) - Tk Marino DO Familial anesthetic complications: None Was Beta Brad taken within 24 hours: N/A Was Clonidine taken within 24 hours: N/A Last intake: Intake Last Liquid Date 09/13/23 Last Liquid Time 22:00 Last Solid Date 09/12/23 Last Solid Time 19:00 Social No alcohol and No tobacco Exam alert, clear to auscultation bilaterally and regular rate & rhythm Airway Mallampati: Class III Dentition: other (multiple missing) Pulmonary hx ARDS, PE, Hx aspiration CV/HEM Arrythmia (bradycardia) and Hypertension Neuropsych Seizure Anesthetic Plan ASA status: 3 Anesthesia: MAC Risk of > 500 ml blood loss (7ml/kg in children): No Other Pertinent Information hx obtained from caregiver who has had him for 30 years Medications/Allergies Home Medications Medication Instructions Recorded Confirmed Last Taken Type dextromethorphan-guaifenesin 10 5 ml PO Q4H PRN Cough 05/17/21 09/12/23 12/28/21 History mg-100 mg/5 mL oral syrup (Roby DM) multivitamin 1 tab PO DAILY 05/02/23 09/12/23 09/12/23 History acetaminophen 325 mg tablet 325 mg PO QID PRN pain 05/08/23 09/12/23 Unknown History citalopram 10 mg tablet 10 mg PO DAILY 05/08/23 09/12/23 09/12/23 History famotidine 20 mg tablet 20 mg PO DAILY 05/08/23 09/12/23 09/12/23 History lactulose 10 gram/15 mL oral 10 g PO DAILY 05/08/23 09/12/23 09/12/23 History solution polyethylene glycol 3350 17 17 g PO DAILY 05/08/23 09/12/23 09/12/23 History gram/dose oral powder fluticasone propionate 50 1 spray intranasal DAILY 06/20/23 09/12/23 09/12/23 History mcg/actuation nasal spray,suspension magnesium hydroxide 400 mg/5 mL 30 ml PO DAILY PRN Constipation 06/20/23 09/12/23 Unknown History oral suspension (Milk of Magnesia) perampanel 8 mg tablet 6 mg PO DAILY@20 06/20/23 09/12/23 Unknown History sennosides 8.6 mg tablet (Elizabet-melanie) 8.6 mg PO DAILY 06/20/23 09/12/23 09/12/23 History levetiracetam 1,000 mg tablet 1,000 mg PO BID 08/22/23 09/12/23 09/12/23 History pantoprazole 40 mg tablet,delayed 40 mg PO BID 6 weeks #84 tabs 08/22/23 09/12/23 09/12/23 Rx release (Protonix) sucralfate 1 gram tablet (Carafate) 1 g PO BID #60 tabs 08/22/23 09/12/23 09/12/23 Rx Allergies Allergy/AdvReac Type Severity Reaction Status Date / Time TIDE LAUNDRY SOAP Allergy ALGY-Rash Uncoded 08/22/23 08:09 [facility] Anesthesia Medical History Acute anemia ARDS (adult respiratory distress syndrome) ARDS survivor Developmental delay, profound Elevated lactic acid level Hypernatremia Pneumonia due to COVID-19 virus Protein calorie malnutrition Pulmonary embolism Respiratory failure with hypoxia Sepsis Thrombocytopenia Transaminitis Surgical History S/P percutaneous endoscopic gastrostomy (PEG) tube placement (05/27/21) removed 05/04/2022 Social History Smoking and tobacco/nicotine status: never used tobacco/nicotine Data Anesthesia Cardiac Studies: Echocardiogram Ultrasound 05/24/21
[2023-09-14] MEDS: sodium chloride 0.9% 1,000 ML 30 ML IV (10:21)
--- NOTE | 2023-09-14 11:10 | ANE.PACU2 ---
Inpatient post-anesthesia follow up: Airway intact: Yes Vital signs: Temperature 97.0 F Pulse Rate 69 Respiratory Rate 18 Blood Pressure 133/94 Pulse Oximetry 96 Oxygen Delivery Me thod Room Air Oxygen Flow Rate Fraction of Inspir ed Oxygen Hydration adequate: Yes Nausea and vomiting: No Pain level: 1 Mental status: Baseline
[2023-09-14 11:13] VITALS: BP 123/84; PULSE 67; RESP 18; TEMP 36.1; O2SAT 96
--- NOTE | 2023-09-14 11:27 | PC.NURSE ---
IV noted to infiltrated in recovery. Area slightly swollen from saline. IV removed, covered with 2x2 and coban. Caregiver notified at bedside.
[2023-09-14 11:28] VITALS: BP 133/94; PULSE 69; RESP 18; O2SAT 96
== END 2023-09-14 11:45 | disposition home or self-care (01) ==
PROVIDERS: PCP Nurse Practitioner Family; Visit Provider Surgery
PROC: 0DJD8ZZ Inspection of Lower Intestinal Tract, Via Natural or Artificial Opening Endoscopic (ICD-10-PCS; CPT 45378; 2023-09-14 10:15)
PROC: 0DJ08ZZ Inspection of Upper Intestinal Tract, Via Natural or Artificial Opening Endoscopic (ICD-10-PCS; CPT 43235; 2023-09-14 10:15)
DX: D50.9 Iron deficiency anemia, unspecified (principal); K57.30 Diverticulosis of large intestine without perforation or abscess without bleeding; K22.70 Barrett's esophagus without dysplasia; K21.00 Gastro-esophageal reflux disease with esophagitis, without bleeding; K29.50 Unspecified chronic gastritis without bleeding; I10 Essential (primary) hypertension; Z86.711 Personal history of pulmonary embolism
CPT/HCPCS: 43239; 45378; 88305; 88312; 88342; J2704; J7030

== ENCOUNTER → 2023-09-28 09:28 | Outpatient (BNVA) | payer MEDICAID, SELFPAY | PROVIDERS: PCP Nurse Practitioner Family; Visit Provider Surgery | DX: Z09 Encounter for follow-up examination after completed treatment for conditions other than malignant neoplasm (principal) | CPT/HCPCS: 99214 ==

== ENCOUNTER 2024-12-15 16:18 | Inpatient (IN) | payer MEDICAID, SELFPAY ==
[2024-12-15] VITALS (61 sets, daily range): BP systolic 70–128; BP diastolic 52–103; PULSE 0–111; RESP 14–20; TEMP 36.7–37.2; O2SAT 93–100
--- NOTE | 2024-12-15 16:19 | XRR_ITS ---
PROCEDURE INFORMATION: Exam: XR Chest Exam date and time: 12/15/2024 4:54 PM Age: 69 years old Clinical indication: Device placement; Ett placement (vent status); Additional info: Cp TECHNIQUE: Imaging protocol: Radiologic exam of the chest. Views: 1 view. COMPARISON: CR XR chest 1V portable [id number] 05/02/2023 10:40 AM FINDINGS: Tubes, catheters and devices: Endotracheal tube terminates 3.5 cm from the love. Enteric tube terminates within the proximal esophagus. Lungs: Multifocal bilateral patchy opacities. Pleural spaces: No pleural effusion. No pneumothorax. Heart/Mediastinum: Cardiomegaly. Bones/joints: No acute findings. XR/XR chest 1V portable [id number] IMPRESSION: 1. Possible multifocal bilateral infiltrates. Correlate with signs/symptoms of infection. 2. Enteric tube terminates within the proximal esophagus. Recommend advancement. 3. Endotracheal tube as above.
--- NOTE | 2024-12-15 16:21 | ECG_ITS ---
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1955 Requested By: Lena Levine Order Number: [id number] Ash MD: ARIELLE RAIN Measurements Intervals [place] Rate: 110 P: 46 NC: 138 QRS: -22 QRSD: 90 T: 57 QT: 331 QTc: 448 Interpretive Statements SINUS TACHYCARDIA POSSIBLE LEFT ATRIAL ENLARGEMENT [-0.1mV P-WAVE IN V1/V2] LOW QRS VOLTAGE [QRS DEFLECTION < 0.5/1.0 mV IN LIMB/CHEST LEADS] POSSIBLE RIGHT VENTRICULAR CONDUCTION DELAY [RSR (QR) IN V1/V2] ANTEROSEPTAL MYOCARDIAL INFARCTION , PROBABLY RECENT [40+ ms Q WAVE IN V1-V4] MARKED ST ELEVATION, CONSIDER LATERAL INJURY [MARKED ST ELEVATION W/O NORMALLY INFLECTED T-WAVE IN I/aVL/V5/V6] ACUTE SD Compared to ECG 06/07/2021 11:34:40 Low QRS voltage now present Myocardial infarct finding now present ST (T wave) deviation still present Electronically Signed On 12-16-2024 23:13:25 [employer]INTER [employer]REL by ARIELLE RAIN [email or web address]
[2024-12-15] MEDS: heparin 5,000 unit/mL INJ 1 mL 4000 UNIT IVP (16:33)
--- NOTE | 2024-12-15 16:34 | XACV_ITS ---
Exam Room: [facility] Ht: 180 cm Wt: 80 kg BSA: 2.01 m2 Gender: Male : 1955 Any Known Allergies: Other Exam Priority: Routine Indication(s): - Anterior wall TN w/PTCA and stent placement Procedure(s): Procedure Description: Diagnostic procedure Procedure Description: PCI procedure Procedure Description: Left Heart Catheterization Procedure Description: Left ventriculography Procedure Description: Drug Eluting Coronary Stent Procedure Description: PTCA Procedure Description: Miscellaneous Procedure Description: ACT Procedure Description: Coronary Angiography Diagnostic Cath Status: Emergency Diagnostic Findings * Left Main has no disease. * Proximal Left Anterior Descending to Proximal Left Anterior Descending: total occlusion, DEVIKA: 3 flow. * Proximal Left Anterior Descending: total occlusion, DEVIKA: 3 flow. * Mid Left Anterior Descending: total occlusion, DEVIKA: 3 flow. * Mid Right Coronary Artery: significant 80% stenosis, DEVIKA: 3 flow. * Distal Circumflex: obstructive 70% stenosis, DEVIKA: 3 flow. * 1st Diagonal: severe 90% stenosis, DEVIKA: 3 flow. * Second Obtuse Marginal Branch Segment: obstructive 70% stenosis, DEVIKA: 3 flow. * Coronary angiography shows right dominance. PCI Status: Emergency PCI Indication: Immediate PCI for STEMI Interventional Findings * Proximal Left Anterior Descending to Proximal Left Anterior Descendin% stenosis treated with a AB TREK 2.50X12 RX BALLOON, MDT R BAHMAN 2.5X30 NICOLÁS, MDT R BAHMAN 2.0X12 NICOLÁS, and MDT NC EUPHORA RX [id number] BALLOON. 0% residual stenosis, DEVIKA: 3 flow. * Proximal Left Anterior Descendin% stenosis treated with a MDT R BAHMAN 2.5X26 NICOLÁS, and MDT NC EUPHORA RX [id number] BALLOON. 0% residual stenosis, DEVIKA: 3 flow. * Mid Left Anterior Descendin% stenosis treated with a MDT R BAHMAN 2.0X12 NICOLÁS, and MDT NC EUPHORA RX [id number] BALLOON. 0% residual stenosis, DEVIKA: 3 flow. * Mid Right Coronary Artery: 80% stenosis treated with a AB TREK 2.50X12 RX BALLOON, MDT R BAHMAN 3.5X12 NICOLÁS, and MDT NC EUPHORA RX [id number] BALLOON. 0% residual stenosis, DEVIKA: 3 flow. * 1st Diagonal: 90% stenosis treated with a AB MINI TREK 1.50X6 RX BALLOON. 70% residual stenosis, DEVIKA: 3 flow. Conclusions 1. There is total occlusion coronary artery disease with three vessel disease. 2. Moderate left ventricular systolic dysfunction. Ejection fraction of 35%. 3. Proximal Left Anterior Descending to Proximal Left Anterior Descending was treated with a Balloon, Drug Eluting Stent, Drug Eluting Stent, and Balloon. 4. Proximal Left Anterior Descending was treated with a Drug Eluting Stent, and Balloon. 5. Mid Left Anterior Descending was treated with a Drug Eluting Stent, and Balloon. 6. Mid Right Coronary Artery was treated with a Balloon, Drug Eluting Stent, and Balloon. 7. 1st Diagonal was treated with a Balloon. Recommendations * 1-Return to inpatient for close monitoring and routine cath care 2-Risk factor modification for secondary prevention 3-Statin and aspirin 81 mg life-long, if tolerated 4-Patient was pre-loaded with 600 mg of Plavix, continue Plavix 75mg p.o. daily for at least one year. We will assess at the end of one year again to continue if further or not 5-Continue optimal medical management, stage PCI to mid LCz and OM if angina persist despite of GMDT 6-Follow up with Dr. Downey in four weeks and your primary care in 10 days. Diagnostic RX Recommendation: PCI w/o planned CABG Ventriculography Ejection Fraction: 35.0 % Pressures Phase:Rest AO : 73 / 58 ( 65 ) @ 1:01:06 PM 113 / 78 ( 91 ) @ 1:01:06 PM 82 / 54 ( 67 ) @ 1:01:06 PM 89 / 49 ( 68 ) @ 1:01:06 PM 79 / 63 ( 71 ) @ 5:36:00 PM 71 / 59 ( 66 ) @ 5:54:00 PM LV : 85 / 12 / 22 @ 1:01:06 PM 78 / 12 / 20 @ 1:01:06 PM 78 @ 1:01:06 PM Valves Phase:DefaultPhase AV : 0.0 @ 7:01:06 PM AV Mean Gradient: 0.0 @ 7:01:06 PM Clinical Evaluation EBL: 5mL-10mL Procedural Details Current Diagnosis : STEMI. Physician arrived. Pre-Procedure Time Out. Identified patient by full name and date of as verbalized by the patient/guarantor. Does the consent match the physician's order: N/A Emergent. Accurate & Complete Informed Consent: N/A Emergent. Inpatient/Outpatient History & Physical on Chart: N/A Emergent. If H&P is completed, is and addenduem needed: N/A Emergent; If yes, is the addendum complete: N/A Emergent. Visualize and Verify Site with Patient/Guarantor: N/A. Relevant Radiology Images available: N/A Emergent. Pre-op teaching completed and patient verbalized understanding. The risks, benefits, and alternatives of sedation and/or procedure were discussed by physician. The patient agrees to continue. Procedure started. [facility] [place] Clinical Fraility Score: 6: Moderately Frail. Emergency Specialist Indications: ACS <= 24 hours. Chest Pain Symptom Assessment: Typical Angina Symptoms. Cardiovascular Instability: Yes, if yes, Persistant Ischemic Symptoms. Correct patient, site and procedure confirmed by cath team. Current diagnosis: STEMI. PERRLA. Strong, equal hand facility practice specialist bilaterally. Lungs clear x 5 lobes. Patient arrived to the foundry laborer coreroom intubated. Respiratory here to manage vent. Anesthesia here to manage sedation. bilateral groins was prepped with chloroprep then draped in the usual sterile fashion. Baseline sample Acquired. HR: 113 BPM. Physician scrubbed in. Immediate Pre-Procedure Time Out. Correct Patient: N/A Emergent; Correct Procedure: N/A Emergent; Correct Site: N/A Emergent; Correct Patient Position: N/A Emergent; Correct Supplies: N/A Emergent; Dried Flammable Prep: N/A Emergent; Blood Products Available: N/A Emergent;. Lidocaine 1% infiltrated to the right groin. Arterial access obtained with micropuncture set. 6 pitcairn islander XB 3 guide catheter was inserted over the wire. ACT drawn. Results 216 seconds. Therapeutic limits - pre-heparin administration 90-150 seconds and monitoring heparin during a vascular procedure >250 seconds. Multiple views taken of left coronary artery. Runthrough guidewire was advanced through the guide catheter to lesion in the diaganol. A second Runthrough guidewire was advanced through the guide catheter to lesion in the prox LAD. A 18 gauge IV was started in the left EJ using aseptic technique. Inflation number : 1 A AB TREK 2.50X12 RX BALLOON was prepped and advanced across the Prox LAD , then inflated to 12 MADAY for 0:10 seconds. Inflation number: 2 The AB TREK 2.50X12 RX BALLOON was reinflated across the Prox LAD, to 12 MADAY for 0:07 seconds. AP Pads placed on the patient. Balloon out. Inflation number: 3 The AB TREK 2.50X12 RX BALLOON was reinflated across the Prox LAD, to 12 MADAY for 0:07 seconds. Inflation number: 4 The AB TREK 2.50X12 RX BALLOON was reinflated across the Prox LAD, to 12 MADAY for 0:08 seconds. Inflation number: 5 The AB TREK 2.50X12 RX BALLOON was reinflated across the Prox LAD, to 12 MADAY for 0:04 seconds. Inflation number: 6 The AB TREK 2.50X12 RX BALLOON was reinflated across the Prox LAD, to 12 MADAY for 0:07 seconds. Inflation number: 7 The AB TREK 2.50X12 RX BALLOON was reinflated across the Prox LAD, to 14 MADAY for 0:09 seconds. Balloon out. Results checked. Inflation Number : 8 A LUIS A Medrano BAHMAN 2.5X30 NICOLÁS -Lot Number# _[id number]_ EXP: 10/21/2026 was prepped and advanced across the Prox LAD. The stent was deployed at 14 MADAY for 0:22 seconds. Stent balloon out over wire. Results checked. PCI Indication: STEMI. PCI Indication : Immediate PCI for STEMI. Results checked. Inflation Number : 1 A MDT R BAHMAN 2.0X12 NICOLÁS -Lot Number# _[id number]_ EXP: 03/19/2025 was prepped and advanced across the Mid LAD. The stent was deployed at 12 MADAY for 0:09 seconds. Inflation number: 9 The stent balloon was then re-inflated across the Prox LAD to 16 MADAY for 0:07 seconds. Stent balloon out over wire. Blood pressure being treated by anesthesia. Results checked. Inflation Number : 1 A MDT R BAHMAN 2.5X26 NICOLÁS -Lot Number# _[id number]_ EXP: 03/18/2027 was prepped and advanced across the Prox LAD1. The stent was deployed at 14 MADAY for 0:17 seconds. Stent balloon out over wire. Results checked. Diag wire removed. Inflation number : 2 A MDT NC EUPHORA RX [id number] BALLOON was prepped and advanced across the Mid LAD , then inflated to 12 MADAY for 0:18 seconds. Inflation number: 10 The MDT NC EUPHORA RX [id number] BALLOON was reinflated across the Prox LAD, to 14 MADAY for 0:14 seconds. Inflation number: 11 The MDT NC EUPHORA RX 3.88X79RZ BALLOON was reinflated across the Prox LAD, to 14 MADAY for 0:13 seconds. Inflation number: 12 The MDT NC EUPHORA RX 3.99Y49GK BALLOON was reinflated across the Prox LAD, to 14 MADAY for 0:10 seconds. Inflation number: 2 The MDT NC EUPHORA RX 3.28L40JN BALLOON was reinflated across the Prox LAD1, to 14 MADAY for 0:17 seconds. Balloon out. Results checked. Runthrough repositioned to diaganol. Inflation number : 1 A AB MINI TREK 1.50X6 RX BALLOON was prepped and advanced across the 1st Diag , then inflated to 12 MADAY for 0:16 seconds. Inflation number: 2 The AB MINI TREK 1.50X6 RX BALLOON was reinflated across the 1st Diag, to 12 MADAY for 0:09 seconds. Inflation number: 3 The AB MINI TREK 1.50X6 RX BALLOON was reinflated across the 1st Diag, to 12 MADAY for 0:11 seconds. Balloon out. Results checked. Wire out. ACT drawn. Results 309 seconds. Therapeutic limits - pre-heparin administration 90-150 seconds and monitoring heparin during a vascular procedure >250 seconds. Guide catheter out. Blood drawn and sent to lab. ABG drawn and sent with respiratory therapy. A 5 pitcairn islander JR4 catheter in over wire. Multiple views taken of right coronary artery. Catheter removed over the exchange wire. 6 pitcairn islander JR 4 guide catheter was inserted over the wire. Runthrough guidewire was advanced through the guide catheter to lesion in the mid RCA. Inflation number : 1 A AB TREK 2.50X12 RX BALLOON was prepped and advanced across the Mid RCA , then inflated to 16 MADAY for 0:09 seconds. Balloon out. Inflation Number : 2 A MDT R BAHMAN 3.5X12 NICOLÁS -Lot Number# _[id number]_ EXP: 04/19/2027 was prepped and advanced across the Mid RCA. The stent was deployed at 12 MADAY for 0:16 seconds. Stent balloon out over wire. Results checked. Inflation number : 3 A MDT NC EUPHORA RX 3.79T43VT BALLOON was prepped and advanced across the Mid RCA , then inflated to 14 MADAY for 0:24 seconds. Inflation number: 4 The MDT NC EUPHORA RX 3.79V10EX BALLOON was reinflated across the Mid RCA, to 14 MADAY for 0:19 seconds. Balloon out. Results checked. Wire out. Guide catheter out. A 5 pitcairn islander Angled Pig catheter in over wire. ACT drawn. Results 299 seconds. Therapeutic limits - pre-heparin administration 90-150 seconds and monitoring heparin during a vascular procedure >250 seconds. EDP Sample taken: LV 85/12,22; HR: 65 BPM; SpO2: Off%. LV gram performed in CORTEZ @ 10 mL/second for a total of 30 mL. EDP Sample taken: LV 78/12,20; HR: 80 BPM; SpO2: Off%. Pullback taken: LV 78/12,21; AO 82/54(67); Mean: 0mmHg, Peak to Peak: 0mmHg, SEP: 9sec/min; HR: 74 BPM; SpO2: Off%. Catheter removed over the standard wire. A Right femoral angiogram was performed to determine safe placement of closure device. A Suture was successful obtaining hemostatsis at the Right Femoral artery insertion site. Sheath(s) sutured into position with 2-0 silk and sterile 4x4's and Op-site applied over the site. No oozing or signs and symptoms of hematoma noted. Arterial sheath flushed and connected to tranducer and pressure bag with heparinized saline. Post Procedure: Pulses reassessed and unchanged. Post-op diagnosis: Stent to LAD and RCA. Complications: None. Estimated blood loss: 5mL-10mL. Responsiveness - Normal response to verbal stimuli; alert and oriented, PERRLA. Airway - Unaffected, no intervention required; spontaneous ventilation. Circulation: W/N/L, pulses unchanged. Nausea/Vomiting: No. Procedure completed. Patient transferred by bed to ICU. Vital chart was stopped. Access Site Site: Right Femoral artery Sheath Size: 6 Fr Hemostasis Method: Suture Hemostasis Success: Successful Procedure Medications Start: 5:38 PM Stop: 5:38 PM Medication: Aggrastat 12.5 mg/250 mL Amount: 40 ml Route: I.V. bolus Start: 5:38 PM Stop: 5:38 PM Medication: Aggrastat 12.5 mg/250 mL Amount: 14.4 ml/hr Route: I.V. drip Start: 5:51 PM Stop: 5:51 PM Medication: Heparin Amount: 4000 units Route: I.V. Start: 5:55 PM Stop: 5:55 PM Medication: Nitrogylcerin Amount: 200 mcg Route: I.C. Start: 6:02 PM Stop: 6:02 PM Medication: Nitrogylcerin Amount: 200 mcg Route: I.C. Start: 6:21 PM Stop: 6:21 PM Medication: Nitrogylcerin Amount: 200 mcg Route: I.C. I, the attending physician, have reviewed and verified all procedure medications. Yes, all medications given per verbal order History/Risk Factors Hypertension: No Dyslipidemia: No Peripheral Arterial Disease (PAD): No Myocardial Infarction (TN): No Obesity: No Renal Disease: No Prior Interventions PCI: No CABG: No Valve Surgery: No Report Signatures Finalized by Bharathi Downey MD on 12/30/2024 12:39 AM
--- NOTE | 2024-12-15 16:36 | ED_ITS ---
HPI - Chest Pain 2 General: Chief Complaint: Chest Pain Stated Complaint: stemi Time Seen by Provider: 12/15/24 16:19 Source: EMS Mode of arrival: EMS Limitations: altered mental status and physical limitation History of Present Illness: 69-year-old male is here from nursing me has a history developmental delay he is nonverbal at baseline per long-term he had been not acting his normal self throughout the day becoming less responsive EMS EKG showed ST elevation they called a STEMI alert does have ST elevation V2 V3 no history is available from patient Related Data Home Medications Medication Instructions Recorded Confirmed dextromethorphan-guaifenesin 10 5 ml PO Q4H PRN Cough 05/17/21 12/15/24 mg-100 mg/5 mL oral syrup (Tussin DM) multivitamin 1 tab PO DAILY 05/02/23 12/15/24 acetaminophen 325 mg tablet 325 mg PO QID PRN pain 05/08/23 12/15/24 citalopram 10 mg tablet 10 mg PO DAILY 05/08/23 12/15/24 famotidine 20 mg tablet 20 mg PO DAILY 05/08/23 12/15/24 lactulose 10 gram/15 mL oral 30 ml PO DAILY 05/08/23 12/15/24 solution polyethylene glycol 3350 17 17 g PO DAILY 05/08/23 12/15/24 gram/dose oral powder fluticasone propionate 50 1 spray intranasal DAILY 06/20/23 12/15/24 mcg/actuation nasal spray,suspension magnesium hydroxide 400 mg/5 mL 30 ml PO DAILY PRN Constipation 06/20/23 12/15/24 oral suspension (Milk of Magnesia) sennosides 8.6 mg tablet (Elizabet-melanie) 8.6 mg PO DAILY 06/20/23 12/15/24 levetiracetam 1,000 mg tablet 1,000 mg PO BID 08/22/23 12/15/24 cetirizine 10 mg tablet 10 mg PO DAILY 12/15/24 12/15/24 meloxicam 7.5 mg tablet 7.5 mg PO DAILY 12/15/24 12/15/24 perampanel 6 mg tablet (Fycompa) 6 mg PO QAM 12/15/24 12/15/24 Previous Rx's Medication Instructions Recorded pantoprazole 40 mg tablet,delayed 40 mg PO BID 6 weeks #84 tabs 09/26/23 release (Protonix) Allergies Allergy/AdvReac Type Severity Reaction Status Date / Time TIDE LAUNDRY SOAP Allergy ALGY-Rash Uncoded 08/22/23 08:09 Review of Systems 2 General: Reports: ROS unobtainable due to mental status PFSH ED 2 PFSH: Medical History Acute anemia ARDS survivor Protein calorie malnutrition ARDS (adult respiratory distress syndrome) Sepsis Hypernatremia Respiratory failure with hypoxia Developmental delay, profound Transaminitis Elevated lactic acid level Thrombocytopenia Pulmonary embolism Pneumonia due to COVID-19 virus Surgical History S/P percutaneous endoscopic gastrostomy (PEG) tube placement (05/27/21) removed 05/04/2022 Social History Smoking and tobacco/nicotine status: never used tobacco/nicotine Procedures Intubation sedative: Etomidate Mg Given: 20 paralytic: Vecuronium Mg Given: 8 Laryngoscope: Venkatesh ET Tube Size: 8 Tube Secured Depth (cm): 26 Tube Placement Confirmation: visualized tube passing through cords Patient Tolerated Procedure: well Intubation Complications: none Course 2 Vital Signs: Vital signs: Vital Signs Temperature 99.0 F 12/15/24 16:19 Pulse Rate 109 H 12/15/24 16:19 Respiratory Rate 20 H 12/15/24 16:19 Blood Pressure 127/100 12/15/24 16:19 Pulse Oximetry 93 12/15/24 16:19 Oxygen Delivery Me thod Room Air 12/15/24 16:19 MDM - Chest Pain Medical Decision Making Patient presents here as a STEMI alert EKG here does show ST elevation in V2 V3 taken to the Telesales Representative at this time. Patient had to be intubated before going to Telesales Representative as he is unable to follow any commands any clamp truck driver requested an ablation Medical Records I reviewed the patient's medical records. Lab Data I reviewed the patient's lab results. 12/15/24 16:35 12/15/24 16:35 Laboratory Results WBC 23.40 10^3/uL (3.29-11.43) H 12/15/24 16:35 RBC 5.40 10^6/uL (3.85-5.65) 12/15/24 16:35 Hgb 13.80 g/dL (11.27-16.99) 12/15/24 16:35 Hct 45.5 % (37-53) 12/15/24 16:35 MCV 84.3 fl (82-101) 12/15/24 16:35 MCH 25.6 pg (27-33) L 12/15/24 16:35 MCHC 30.3 g/dL (30-55) 12/15/24 16:35 RDW 17.6 % (12.1-15.1) H 12/15/24 16:35 Plt Count 343 10^3/cmm (157-399) 12/15/24 16:35 MPV 12.0 fL (7.4-10.4) H 12/15/24 16:35 Neut % (Auto) 80.7 % 12/15/24 16:35 Lymph % (Auto) 6.2 % 12/15/24 16:35 [place] % (Auto) 12.3 % 12/15/24 16:35 Eos % (Auto) 0.0 % 12/15/24 16:35 Baso % (Auto) 0.2 % 12/15/24 16:35 Neut # (Auto) 18.90 10^3/uL (1.8-7.7) H 12/15/24 16:35 Lymph # (Auto) 1.5 10^3/uL (0.8-4.8) 12/15/24 16:35 [place] # (Auto) 2.9 10^3/uL (0.2-0.9) H 12/15/24 16:35 Eos # (Auto) 0.0 10^3/uL (0.0-0.8) 12/15/24 16:35 Baso # (Auto) 0.1 10^3/uL (0.0-0.1) 12/15/24 16:35 Nucleated RBC % (auto) 0 % 12/15/24 16:35 Nucleated RBCs # 0.0 /100WBC 12/15/24 16:35 All radiology interpretation(s) finalized by discharge EKG Data EKG 1: I personally reviewed and interpreted this EKG as follows: EKG interpretation date: 12/15/24 EKG interpretation time: 16:21 Interpretation: sinus tach hr 110 st elevation v2 v3 stemi qrs 90 qtc 396 Discharge Plan Discharge Patient Disposition: Admitted As Inpatient Clinical Impression: ST elevation myocardial infarction (STEMI) Condition: Stable Coding Level of Care Code ED V Belt Inspector for Júnior El
[2024-12-15] MEDS: aspirin 300 mg Supp PR (16:40)
[2024-12-15 16:44] LABS: Basophils # 0.1 10^3/uL (0.0-0.1); Basophils % 0.2 %; Hematocrit 45.5 % (37-53); Lymphocytes # 1.5 10^3/uL (0.8-4.8); Lymphocytes % 6.2 %; Mean Corpuscular HGB Conc 30.3 g/dL (30-55); Mean Corpuscular Hemoglobin 25.6 pg (27-33); Mean Corpuscular Volume 84.3 fl (82-101); Monocytes # 2.9 10^3/uL (0.2-0.9); Monocytes % 12.3 %; Neutrophils % 80.7 %; Nucleated Red Blood Cells % 0 %; Platelet Count 343 10^3/cmm (157-399); Red Cell Distribution Width 17.6 % (12.1-15.1)
[2024-12-15] MEDS: vecuronium 10 mg SDV 8 MG IVP (16:48)
[2024-12-15] MEDS: etomidate 2 mg/mL INJ SDV 10 mL 20 MG IVP (16:49)
--- NOTE | 2024-12-15 16:58 | PM.CONSULT ---
Providers/Reason For Consult Consulting Physician/Specialty*: Bharathi Downey MD Reason for Consult*: ST elevation [place] Attending Physician: Bharathi Downey MD Primary Care Provider: MANDI Stewart History of Present Illness History of Present Illness Jorge Luis Lucas is a 69 year old male who is from group home and no detailed history available to me, I spoke to nursing staff who takes care of him according to them his power of attorney lawyer is in [place], he does not have any biological relatives, he is full code. He has multiple comorbidities such as severe mental disorder bedbound history of agitation bradycardia GI bleed anemia thrombocytopenia adult respiratory distress syndrome not able to communicate and respond only to very close caregiver, today he was not feeling well, I am not sure whether he complained of chest pain or not however EMS was called EKG was consistent with anterolateral wall ST elevation AZ patient was brought in to ER. Patient is not able to communicate, he will not be able to follow command and cannot lay still. He moves and shakes his head, I am afraid that he will not be able to protect his airway and will aspirate he has history of aspiration with ARDS. At this point I recommend stabilizing the patient protecting his airway and under deep sedation with anesthesia care we will proceed with urgent left heart cath/PCI. I have detailed discussion with the patient's group home staff, ER physician, they all are in agreement. Please note delay in the STEMI is secondary to stabilizing the patient protecting his airway as he is being intubated. My plan is to place NG/OG tube and give him meds through that rout. Apparently began. Further plan will be devised as per progress the patient. Medications/Allergies Home Medications Medication Instructions Recorded Confirmed Last Taken Type dextromethorphan-guaifenesin 10 5 ml PO Q4H PRN Cough 05/17/21 12/15/24 12/28/21 History mg-100 mg/5 mL oral syrup (Tussin DM) multivitamin 1 tab PO DAILY 05/02/23 12/15/24 09/12/23 History acetaminophen 325 mg tablet 325 mg PO QID PRN pain 05/08/23 12/15/24 Unknown History citalopram 10 mg tablet 10 mg PO DAILY 05/08/23 12/15/24 09/12/23 History famotidine 20 mg tablet 20 mg PO DAILY 05/08/23 12/15/24 09/12/23 History lactulose 10 gram/15 mL oral 30 ml PO DAILY 05/08/23 12/15/24 09/12/23 History solution polyethylene glycol 3350 17 17 g PO DAILY 05/08/23 12/15/24 09/12/23 History gram/dose oral powder fluticasone propionate 50 1 spray intranasal DAILY 06/20/23 12/15/24 09/12/23 History mcg/actuation nasal spray,suspension magnesium hydroxide 400 mg/5 mL 30 ml PO DAILY PRN Constipation 06/20/23 12/15/24 Unknown History oral suspension (Milk of Magnesia) sennosides 8.6 mg tablet (Elizabet-melanie) 8.6 mg PO DAILY 06/20/23 12/15/24 09/12/23 History levetiracetam 1,000 mg tablet 1,000 mg PO BID 08/22/23 12/15/24 09/12/23 History pantoprazole 40 mg tablet,delayed 40 mg PO BID 6 weeks #84 tabs 08/22/23 12/15/24 09/12/23 Rx release (Protonix) cetirizine 10 mg tablet 10 mg PO DAILY 12/15/24 12/15/24 Unknown History meloxicam 7.5 mg tablet 7.5 mg PO DAILY 12/15/24 12/15/24 Unknown History perampanel 6 mg tablet (Fycompa) 6 mg PO QAM 12/15/24 12/15/24 Unknown History Allergies Allergy/AdvReac Type Severity Reaction Status Date / Time TIDE LAUNDRY SOAP Allergy ALGY-Rash Uncoded 08/22/23 08:09 PFSH Acute PFSH: Medical History Acute anemia ARDS survivor Protein calorie malnutrition ARDS (adult respiratory distress syndrome) Sepsis Hypernatremia Respiratory failure with hypoxia Developmental delay, profound Transaminitis Elevated lactic acid level Thrombocytopenia Pulmonary embolism Pneumonia due to COVID-19 virus Surgical History S/P percutaneous endoscopic gastrostomy (PEG) tube placement (05/27/21) removed 05/04/2022 Social History Smoking and tobacco/nicotine status: never used tobacco/nicotine Vitals/I&O/Wt Last Vital Signs Temp 99.0 F 12/15/24 16:19 Pulse 109 H 12/15/24 16:19 Resp 20 H 12/15/24 16:19 BP 127/100 12/15/24 16:19 Pulse Ox 93 12/15/24 16:19 O2 Del Method Room Air 12/15/24 16:19 Weight last 48 hrs Weight 176 lb Physical Exam Const: OTHER: GENERAL: Patient is awake but not communicative he has underlying mental disorder, he does not follow command I am not sure whether he is able to listen to me HEART: Regular S1 and S2. No murmur, rub or gallop. LUNGS: Clear to auscultate bilaterally. CENTRAL NERVOUS SYSTEM: Grossly nonfocal except as above EXTREMITIES: Lower extremities with out edema bilaterally. There are contracture of the arms and legs Data 12/15/24 16:35 12/15/24 16:35 A&P Assessment and plan (1) ST elevation myocardial infarction (STEMI): (2) Developmental delay, profound: (3) History of pulmonary embolism: Consult Attestations Medical Necessity Statement: This is a challenging patient who is 69-year-old group home and comorbidities as above presented with anterolateral wall ST elevation [place] he is intubated anesthesia has been requested to manage deep sedation, placement of OG tube remains unsuccessful, will request anesthesia for passage of OG tube after intubation for Plavix and other medicine pertaining to ACS. We will now proceed with urgent left heart cath/PCI through right groin approach because of his contractures. Staff from group home who takes care of him has been explained all risk-benefit and alternative for the procedure they have told me he is full code and we should to anything we can to save him. There will also try to reach power of attorney lawyer. Further plan will be advised as per progress the patient. Coding Level of Care Code Acute Code for Chg Fwd Diagnoses ST elevation myocardial infarction (STEMI) I21.3 Developmental delay, profound R62.50 History of pulmonary embolism Z86.711
[2024-12-15 17:03] LABS: Troponin(5th) Baseline 4647 ng/L (0-15)
[2024-12-15 17:04] LABS: Alanine Aminotransferase 105 U/L (0-41); Albumin Level 3.8 g/dL (3.5-5.2); Alkaline Phosphatase 168 U/L (40-130); Blood Urea Nitrogen 19 mg/dL (8-23); Calcium 9.4 mg/dL (8.5-10.5); Carbon Dioxide 26 mmol/L (22-29); Chloride 105 mmol/L (98-107); Creatinine Clr Calc Pharmacy 78.1838; Globulin 3.2 g/dL (1.3-4.6); Glomerular Filtration Rate 74.5 mL/min (90-130); Glucose 126 mg/dL (65-115); Osmolality Calculated 300 mOsm/kg (285-295); Sodium 143 mmol/L (136-145); Total Bilirubin 0.7 mg/dL (0.15-1.2)
[2024-12-15] MEDS: propofol 1,000 MG/100 ML INJ 2.4 MG IV (17:09)
[2024-12-15] MEDS: clopidogrel 300 mg Tablet 600 MG PO ×2 (17:10→21:07)
--- NOTE | 2024-12-15 17:11 | PM.HP ---
Providers/Chief Complaint Primary Care Provider: MANDI Stewart Chief Complaint: stemi History of Present Illness Jorge Luis Lucas is a 69 year old male With past medical history of developmental delay under guardianship of the state, seizures, agitation, bradycardia, GI bleed, anemia, thrombocytopenia, ARDS, long-term resident who is normally not alert to self as per previous notes, history of pulmonary embolism on Eliquis was brought into the hospital today with complaint of chest pain however patient is not following any commands at this time. He is unable to communicate. He was able to shake his head and move. There was concern for not being able to protect his airway and risk of aspiration therefore patient was intubated for airway protection. In the ER he was diagnosed with ST elevation MA. Patient to go to [facility] shortly. Cardiology is consulted. History is obtained from chart. When seen by hospitalist patient is intubated. Review of Systems General: Reports: ROS unobtainable due to endotracheal tube, ROS unobtainable due to medical condition and ROS unobtainable due to mental status Medications/Allergies Home Medications Medication Instructions Recorded Confirmed Last Taken Type dextromethorphan-guaifenesin 10 5 ml PO Q4H PRN Cough 05/17/21 12/15/24 12/28/21 History mg-100 mg/5 mL oral syrup (Roby ROWLEY) multivitamin 1 tab PO DAILY 05/02/23 12/15/24 09/12/23 History acetaminophen 325 mg tablet 325 mg PO QID PRN pain 05/08/23 12/15/24 Unknown History citalopram 10 mg tablet 10 mg PO DAILY 05/08/23 12/15/24 09/12/23 History famotidine 20 mg tablet 20 mg PO DAILY 05/08/23 12/15/24 09/12/23 History lactulose 10 gram/15 mL oral 30 ml PO DAILY 05/08/23 12/15/24 09/12/23 History solution polyethylene glycol 3350 17 17 g PO DAILY 05/08/23 12/15/24 09/12/23 History gram/dose oral powder fluticasone propionate 50 1 spray intranasal DAILY 06/20/23 12/15/24 09/12/23 History mcg/actuation nasal spray,suspension magnesium hydroxide 400 mg/5 mL 30 ml PO DAILY PRN Constipation 06/20/23 12/15/24 Unknown History oral suspension (Milk of Magnesia) sennosides 8.6 mg tablet (Elizabet-melanie) 8.6 mg PO DAILY 06/20/23 12/15/24 09/12/23 History levetiracetam 1,000 mg tablet 1,000 mg PO BID 08/22/23 12/15/24 09/12/23 History pantoprazole 40 mg tablet,delayed 40 mg PO BID 6 weeks #84 tabs 08/22/23 12/15/24 09/12/23 Rx release (Protonix) cetirizine 10 mg tablet 10 mg PO DAILY 12/15/24 12/15/24 Unknown History meloxicam 7.5 mg tablet 7.5 mg PO DAILY 12/15/24 12/15/24 Unknown History perampanel 6 mg tablet (Fycompa) 6 mg PO QAM 12/15/24 12/15/24 Unknown History Allergies Allergy/AdvReac Type Severity Reaction Status Date / Time TIDE LAUNDRY SOAP Allergy ALGY-Rash Uncoded 08/22/23 08:09 PFSH Acute PFSH: Medical History Acute anemia ARDS survivor Protein calorie malnutrition ARDS (adult respiratory distress syndrome) Sepsis Hypernatremia Respiratory failure with hypoxia Developmental delay, profound Transaminitis Elevated lactic acid level Thrombocytopenia Pulmonary embolism Pneumonia due to COVID-19 virus Surgical History S/P percutaneous endoscopic gastrostomy (PEG) tube placement (05/27/21) removed 05/04/2022 Social History Smoking and tobacco/nicotine status: never used tobacco/nicotine Vitals/I&O/Wt Last Vital Signs Temp 99.0 F 12/15/24 16:19 Pulse 109 H 12/15/24 16:19 Resp 20 H 12/15/24 16:19 BP 127/100 12/15/24 16:19 Pulse Ox 93 12/15/24 16:19 O2 Del Method Room Air 12/15/24 16:19 Weight last 48 hrs Weight 79.832 kg Physical Exam Narrative: General: Intubated sedated HEENT: Normocephalic, atraumatic, sedated Cardio: ST elevations on telemetry, Respiratory: Clear to auscultation bilaterally GI: Abdomen soft, bowel sounds positive Extremities: No edema bilateral lower extremities Data 12/15/24 16:35 12/15/24 16:35 A&P Assessment and plan (1) ST elevation myocardial infarction (STEMI): (2) History of pulmonary embolism: (3) Developmental delay, profound: (4) Leukocytosis: (5) Guardianship: Plan #ST elevation MA #WBC 23,000 #Intellectually disabled #Ron of the state #Seizures #History of ARDS secondary to aspiration #Normally not alert to self #History of agitation bradycardia, thrombocytopenia, chronic long-term resident. #History of pulmonary embolism on Eliquis ? Presented to the hospital apparently for chest pain. Patient unable to communicate or follow any commands. He was diagnosed with STEMI in the ER. Intubated for airway protection. Patient emergently taken to [facility] ? Continue recommendations as per cardiology. Will place OG tube for administration of aspirin Plavix and other medications ? Concern for aspiration pneumonia. Will provide empiric coverage. Zosyn ? Check blood cultures urine culture, sputum culture Gram stain. Unable to obtain any other history from the patient at this time. No family present at bedside. skilled nursing staff not present as well. ? Discussed at length with the on-call batch still operator. ? Continue Protonix, Keppra citalopram cetirizine ? Plan to keep patient ventilatory dependent overnight with planned extubation in a.m. ? Ativan if needed for seizure - Trops pending. Initial Trope 4600 -Check lactic acid, check echo -Have requested anesthesia to place a central line. Full code DVT ppx: heparin gtt Attestations Medical Necessity Statement*: , STEMI, intubated. Greater than 2 midnight stay at this time. Critical Care Time: The high probability of a clinically significant, sudden or life threatening deterioration of the patient's [cardiovascular respiratory neurological] system(s) required my full and direct attention, intervention and personal management. The critical care time is as shown. This time is in addition to time spent performing any reported procedures but includes the following: [x] Data and vital sign review and interpretation [x] Patient assessment, examination and intervention [x] Documentation [x] Medication orders and management Critical Care Time (min): 45 Coding Level of Care Code Acute Code for Chg Fwd Diagnoses ST elevation myocardial infarction (STEMI) I21.3 History of pulmonary embolism Z86.711 Developmental delay, profound R62.50 Leukocytosis D72.829 Guardianship
[2024-12-15 17:12] LABS: Anion Gap 16.3 (5-19); Aspartate Amino Transferase 441 U/L (0-40); Potassium 4.3 mmol/L (3.5-5.1)
--- NOTE | 2024-12-15 17:35 | P.ANESASSM_ITS ---
Pre-Anesthetic Assessment Height/Weight: Height 5 ft 11 in Weight 176 lb Temp Pulse Resp BP Pulse Ox O2 Del Method FiO2 99.0 F 111 H 14 117/86 94 Room Air 100 12/15/24 16:19 12/15/24 17:17 12/15/24 17:14 12/15/24 17:17 12/15/24 17:17 12/15/24 16:19 12/15/24 17:14 Preop Diagnosis: STEMI Operation Date: 12/15/24 16:30 Proposed Procedures p Cardiac Catheterization(Not Applicable) - Bharathi Downey MD Was Beta Brad taken within 24 hours: N/A Was Clonidine taken within 24 hours: N/A Last intake: unkown Social No alcohol and No tobacco Exam sedated and intubated Airway Comments: Comments: ETT in placed, appears to have multiple missing teeth Anesthetic Plan ASA status: 4E Anesthesia: General Other: No known prior issues with anesthesia We were called emergently and for patient experiencing a STEMI and requiring intubation. 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 History of iron deficiency anemia, hemoglobin 13.8 Prior PEs secondary to COVID, no blood thinners Patient has experienced aspiration in the past History of seizures, on chronic Keppra Labs reviewed, WBC 23.4, electrolytes stable, transaminitis noted Troponin 4647 Medications/Allergies Home Medications Medication Instructions Recorded Confirmed Last Taken Type dextromethorphan-guaifenesin 10 5 ml PO Q4H PRN Cough 05/17/21 12/15/24 12/28/21 History mg-100 mg/5 mL oral syrup (Williamssin DM) multivitamin 1 tab PO DAILY 05/02/23 12/15/24 09/12/23 History acetaminophen 325 mg tablet 325 mg PO QID PRN pain 05/08/23 12/15/24 Unknown History citalopram 10 mg tablet 10 mg PO DAILY 05/08/23 12/15/24 09/12/23 History famotidine 20 mg tablet 20 mg PO DAILY 05/08/23 12/15/24 09/12/23 History lactulose 10 gram/15 mL oral 30 ml PO DAILY 05/08/23 12/15/24 09/12/23 History solution polyethylene glycol 3350 17 17 g PO DAILY 05/08/23 12/15/24 09/12/23 History gram/dose oral powder fluticasone propionate 50 1 spray intranasal DAILY 06/20/23 12/15/24 09/12/23 History mcg/actuation nasal spray,suspension magnesium hydroxide 400 mg/5 mL 30 ml PO DAILY PRN Constipation 06/20/23 12/15/24 Unknown History oral suspension (Milk of Magnesia) sennosides 8.6 mg tablet (Elizabet-melanie) 8.6 mg PO DAILY 06/20/23 12/15/24 09/12/23 History levetiracetam 1,000 mg tablet 1,000 mg PO BID 08/22/23 12/15/24 09/12/23 History pantoprazole 40 mg tablet,delayed 40 mg PO BID 6 weeks #84 tabs 08/22/23 12/15/24 09/12/23 Rx release (Protonix) cetirizine 10 mg tablet 10 mg PO DAILY 12/15/24 12/15/24 Unknown History meloxicam 7.5 mg tablet 7.5 mg PO DAILY 12/15/24 12/15/24 Unknown History perampanel 6 mg tablet (Fycompa) 6 mg PO QAM 12/15/24 12/15/24 Unknown History Allergies Allergy/AdvReac Type Severity Reaction Status Date / Time TIDE LAUNDRY SOAP Allergy ALGY-Rash Uncoded 08/22/23 08:09 Current Medications Generic Name Dose Route Start Last Admin Trade Name Freq PRN Reason Stop Dose Admin Propofol 1,000 mg in 100 mls @ 0 mls/hr 12/15/24 17:00 12/15/24 17:09 Diprivan IV 5 mcg/kg/min .Q0M SHWETA 2.4 mls/hr Administration Protocol Per Protocol [facility] Anesthesia Medical History Acute anemia ARDS survivor Protein calorie malnutrition ARDS (adult respiratory distress syndrome) Sepsis Hypernatremia Respiratory failure with hypoxia Developmental delay, profound Transaminitis Elevated lactic acid level Thrombocytopenia Pulmonary embolism Pneumonia due to COVID-19 virus Surgical History S/P percutaneous endoscopic gastrostomy (PEG) tube placement (05/27/21) removed 05/04/2022 Social History Smoking and tobacco/nicotine status: never used tobacco/nicotine Data Anesthesia 12/15/24 16:35 12/15/24 16:35 Short CBC 12/15/24 Range/Units 16:35 WBC 23.40 H (3.29-11.43) 10^3/uL Hgb 13.80 (11.27-16.99) g/dL Hct 45.5 (37-53) % MCV 84.3 (82-101) fl Plt Count 343 (157-399) 10^3/cmm Neut % (Auto) 80.7 % Neut # (Auto) 18.90 H (1.8-7.7) 10^3/uL BMP 12/15/24 16:35 Sodium 143 Potassium 4.3 Chloride 105 Carbon Dioxide 26 BUN 19 Creatinine 1.0 Glucose 126 H Calcium 9.4 Cardiac Enzymes 12/15/24 Range/Units 16:35 Troponin T Baseline 4647 H* (0-15) ng/L Liver Function 12/15/24 Range/Units 16:35 Total Bilirubin 0.7 (0.15-1.2) mg/dL AST 441 H (0-40) U/L ALT 105 H (0-41) U/L Alkaline Phosphatase 168 H (40-130) U/L Albumin 3.8 (3.5-5.2) g/dL Cardiac Studies: 2 Echocardiogram Ultrasound 05/24/21
--- NOTE | 2024-12-15 17:39 | PHA.VACGOAL ---
Vancomycin Goal - Goal Vancomycin Goal:: 15-20 mg/L Vancomycin Indication:: Pneumonia - Therapy Current therapy:: Pip/Tazo Day of therpy:: Day []of [] . Actual body weight (kg): 176 lb - Data Labs: WBC 23.40 10^3/uL (3.29-11.43) H 12/15/24 16:35 RBC 5.40 10^6/uL (3.85-5.65) 12/15/24 16:35 Hgb 13.80 g/dL (11.27-16.99) 12/15/24 16:35 Hct 45.5 % (37-53) 12/15/24 16:35 MCV 84.3 fl (82-101) 12/15/24 16:35 MCH 25.6 pg (27-33) L 12/15/24 16:35 MCHC 30.3 g/dL (30-55) 12/15/24 16:35 RDW 17.6 % (12.1-15.1) H 12/15/24 16:35 Sodium 143 mmol/L (136-145) 12/15/24 16:35 Potassium 4.3 mmol/L (3.5-5.1) 12/15/24 16:35 Chloride 105 mmol/L (98-107) 12/15/24 16:35 Carbon Dioxide 26 mmol/L (22-29) 12/15/24 16:35 Anion Gap 16.3 (5-19) 12/15/24 16:35 BUN 19 mg/dL (8-23) 12/15/24 16:35 Creatinine 1.0 mg/dL (0.7-1.2) 12/15/24 16:35 GFR Calculation 74.5 mL/min (90-130) L 12/15/24 16:35 Last dialysis session:: N/A Treatment plan:: new consult Regimen:: LOADING DOSE OF 2 g PER DOSING PROTOCOL MAINTENANCE DOSE [id number] MG Q12H Follow up:: WILL CONTINUE TO MONITOR AND FOLLOW UP DAILY
[2024-12-15 17:52] LABS: Lactic Sepsis W/Reflex 2.1 mmol/L (0.5-2.2)
[2024-12-15 18:01] LABS: Reflex Lactate Order REFLEX LACTIC ORDERD
[2024-12-15 18:03] LABS: Procalcitonin 0.25 ng/mL (0-0.5); Thyroid Stimulating Hormone 1.54 uIU/mL (0.27-4.20)
[2024-12-15 18:15] LABS: Chol HDL Ratio 2.88 mg/dL (1.0-5.00); Cholesterol 164 mg/dL (0-200); HDL Cholesterol 57 mg/dL (60-100); LDL Cholesterol Calculated 96 mg/dL (50-129); Triglycerides 57 mg/dL (0-150); VLDL Cholestrol Calculation 11 mg/dL (0-30)
[2024-12-15 18:21] LABS: ABG PCO2 32.7 mmHg (35-45); ABG PH Result 7.45 (7.35-7.45); Alveolar-Arterial Oxygen Gradi 61.9 mmHg (5-10); Arterial Blood Gas Hematocrit 36.1 % (42-52); Base Excess ABG -0.5 mmol/L (-2.0-2.0); Blood Gas Operator Identificat CAK; Blood Gas Sample Site aline; Blood Gas Sample Type Arterial; Blood Gas Tidal Volume 0.48; HCO3 ABG 22.9 mmol/L (22-26); HGB O2 Sat 97.6 % (95-100); Ionized Calcium Level - ABG 1.1 mmol/L (1.1-1.4); Methemoglobin 1.3 % (0.4-1.5); Oxygen Device VENT; Oxygen Saturation ABG > 99.1; PO2 FiO2 Ratio Arterial Blood 199; Total Hemoglobin 11.8 g/dL (14-18)
[2024-12-15 18:40] LABS: Estmated Average Glucose 114; Hemoglobin A1C 5.6 % (4.0-6.0)
--- NOTE | 2024-12-15 18:59 | P.PCN_ITS ---
Procedure Note: Date of procedure: 12/15/24 Pre-procedure diagnosis: ST elevation SC, cardiogenic shock Post-procedure diagnosis: same Procedure: Emergent left heart cath after intubation and sedation on propofol by anesthesia secondary to patient inability to communicate agitation and to protect the airway. Please note that despite of all efforts we were not able to place NG or OG tube. Left main: Normal LAD: 100% ostially occluded with small stump LCx large-caliber vessel without significant stenosis RCA dominant large-caliber vessel with mid 80% stenosis Left ventricular end-diastolic pressure 20 mmHg Severely depressed left ventricular ejection fraction 35% with mid to distal anterior apical and inferoapical ballooning and dyskinesis PCI: PCI mid proximal and ostial LAD with 3 overlapping drug-eluting stents, balloon angioplasty of diagonal 2, proximal mid and ostial LAD stents were then postdilated with noncompliant balloon to confirm good apposition PCI of mid RCA with single drug-eluting stent followed by post dilation with noncompliant balloon Excellent angiographic result with DEVIKA-3 flow was achieved Plan: Patient is intubated, despite of ER and anesthesia for were not able to pass OG or NG tube. Patient will need dual antiplatelet load therefore we will contact surgery to help us in putting NG or OG tube other option is PEG tube. For now per rectum we have given aspirin, to start him on his medication including Plavix we may have to request for considering PEG tube, will continue Aggrastat for now until PEG tube is placed otherwise patient will be high risk for stent thrombosis. Patient has been started on Levophed will titrate for cardiogenic shock. Complication of the procedure: None I have detailed discussion with patient's caregiver from longterm. They all are in agreement. Coding Level of Care Code Acute Code for Chg Fwkatie
[2024-12-15] MEDS: tirofiban 5 MG/100 ML PREMIX 9.6 MG IV (19:00)
[2024-12-15] MEDS: norepinephrine 4 MG/250 ML BAG 37.5 MG IV (19:00)
--- NOTE | 2024-12-15 19:00 | ANE.PACU2 ---
Inpatient post-anesthesia follow up: Airway intact: Yes (ETT in place) Vital signs: Temperature 98.7 F Pulse Rate 119 Respiratory Rate 15 Blood Pressure 99/68 Pulse Oximetry 95 Oxygen Delivery Me thod Mechanical Ventila tion Oxygen Flow Rate Fraction of Inspir ed Oxygen 40 Hydration adequate: Yes Nausea and vomiting: No Pain level: Other (intubated and sedated)
[2024-12-15 19:02] LABS: Troponin 5 2HR 5522 ng/L (0-15); Troponin 5 2HR Delta 875 ABS# (0-10)
--- NOTE | 2024-12-15 19:34 | XRR_ITS ---
PROCEDURE INFORMATION: Exam: XR Chest Exam date and time: 12/15/2024 7:37 PM Age: 69 years old Clinical indication: Device placement; Patient HX: Ng tube placement only; Additional info: Ng tube position TECHNIQUE: Imaging protocol: Radiologic exam of the chest. Views: 1 view. COMPARISON: CR (CHEST, ) 12/15/2024 4:54 PM FINDINGS: Airway: Endotracheal terminates 3.4 cm above the love. Accounting for patient's rotation, the enteric tube appears to terminate at within the proximal stomach. Lungs: Similar lung opacities, including at the left lung base. Pleural spaces: No pleural effusion. No pneumothorax. Heart/Mediastinum: No cardiomegaly. Bones/joints: No acute findings. XR/XR chest 1V 31889 IMPRESSION: Accounting for patient's rotation, the enteric tube appears to terminate at within the proximal stomach.
--- NOTE | 2024-12-15 20:09 | P.CONIM_ITS ---
Providers/Reason For Consult 2 Consulting Physician/Specialty*: General Surgery Reason for Consult*: Need for enteral access for medication Attending Physician: Sandy Cortes MD Primary Care Provider: MANDI Stewart History of Present Illness History of Present Illness Jorge Luis Lucas is a 69 year old male with developmental delay under the guardianship of the state who has multiple medical problems presented today with myocardial infarction, he also was in cardiogenic shock. Was taken to the [facility] Specialist where multiple stents were placed and patient will need to be initiated in Plavix. Unfortunately despite several attempts by ER anesthesiology team and cardiology team it was impossible to obtain an NG tube. I was consulted for evaluation and for possible need of endoscopy for NG tube placement. Review of Systems 2 General: Reports: 10 or more systems reviewed and unremarkable except in HPI and below Medications/Allergies Home Medications Medication Instructions Recorded Confirmed Last Taken Type dextromethorphan-guaifenesin 10 5 ml PO Q4H PRN Cough 05/17/21 12/15/24 12/28/21 History mg-100 mg/5 mL oral syrup (Roby ROWLEY) multivitamin 1 tab PO DAILY 05/02/23 12/15/24 09/12/23 History acetaminophen 325 mg tablet 325 mg PO QID PRN pain 05/08/23 12/15/24 Unknown History citalopram 10 mg tablet 10 mg PO DAILY 05/08/23 12/15/24 09/12/23 History famotidine 20 mg tablet 20 mg PO DAILY 05/08/23 12/15/24 09/12/23 History lactulose 10 gram/15 mL oral 30 ml PO DAILY 05/08/23 12/15/24 09/12/23 History solution polyethylene glycol 3350 17 17 g PO DAILY 05/08/23 12/15/24 09/12/23 History gram/dose oral powder fluticasone propionate 50 1 spray intranasal DAILY 06/20/23 12/15/24 09/12/23 History mcg/actuation nasal spray,suspension magnesium hydroxide 400 mg/5 mL 30 ml PO DAILY PRN Constipation 06/20/23 12/15/24 Unknown History oral suspension (Milk of Magnesia) sennosides 8.6 mg tablet (Elizabet-melanie) 8.6 mg PO DAILY 06/20/23 12/15/24 09/12/23 History levetiracetam 1,000 mg tablet 1,000 mg PO BID 08/22/23 12/15/24 09/12/23 History pantoprazole 40 mg tablet,delayed 40 mg PO BID 6 weeks #84 tabs 08/22/23 12/15/24 09/12/23 Rx release (Protonix) cetirizine 10 mg tablet 10 mg PO DAILY 12/15/24 12/15/24 Unknown History meloxicam 7.5 mg tablet 7.5 mg PO DAILY 12/15/24 12/15/24 Unknown History perampanel 6 mg tablet (Fycompa) 6 mg PO QAM 12/15/24 12/15/24 Unknown History Allergies Allergy/AdvReac Type Severity Reaction Status Date / Time TIDE LAUNDRY SOAP Allergy ALGY-Rash Uncoded 08/22/23 08:09 Current Medications Generic Name Dose Route Start Last Admin Trade Name Freq PRN Reason Stop Dose Admin Propofol 1,000 mg in 100 mls @ 0 mls/hr 12/15/24 17:00 12/15/24 17:09 Diprivan IV 5 mcg/kg/min .Q0M SHWETA 2.4 mls/hr Administration Protocol Per Protocol PFSH Acute 2 PFSH: Medical History Acute anemia ARDS survivor Protein calorie malnutrition ARDS (adult respiratory distress syndrome) Sepsis Hypernatremia Respiratory failure with hypoxia Developmental delay, profound Transaminitis Elevated lactic acid level Thrombocytopenia Pulmonary embolism Pneumonia due to COVID-19 virus Surgical History S/P percutaneous endoscopic gastrostomy (PEG) tube placement (05/27/21) removed 05/04/2022 Social History Smoking and tobacco/nicotine status: never used tobacco/nicotine Vitals/I&O/Wt Last Vital Signs Temp 99.0 F 12/15/24 16:19 Pulse 111 H 12/15/24 17:17 Resp 14 12/15/24 17:14 BP 117/86 12/15/24 17:17 Pulse Ox 94 12/15/24 17:17 O2 Del Method Room Air 12/15/24 16:19 FiO2 100 12/15/24 17:14 Weight last 48 hrs Weight 176 lb Physical Exam 2 Narrative: Patient is intubated and sedated, not responsive to any stimulation. Abdomen is soft and nondistended. Data 12/15/24 16:35 12/15/24 16:35 Micro: Microbiology 12/15/24 18:15 Blood Culture - Preliminary Blood SPECIMEN COLLECTED 12/15/24 18:18 Blood Culture - Preliminary Blood SPECIMEN COLLECTED A&P Assessment and plan (1) History of pulmonary embolism: (2) Chronic anticoagulation: (3) Hx pulmonary embolism: (4) Chronic anticoagulation: (5) Guardianship: (6) ST elevation myocardial infarction (STEMI): (7) Developmental delay, profound: (8) Unresponsiveness: (9) Breakthrough seizure: Plan 69-year-old critically ill patient status post coronary endovascular intervention, requires enteral access for initiation of Plavix due to multiple stents that have been placed. At the bedside was able to advance an NG tube to the level of the stomach. NG tube position was confirmed by return of bile, by insufflation of the stomach with air and also with x-ray, due to patient history of a large hiatal hernia it is impossible to advance the NG tube distally to the antrum. At the moment NG tube is only cleared to be used for antiplatelet medication and should not be used for feeding as patient will be high risk for aspiration due to the hiatal hernia. Last x-ray showed evidence of the tip of the tube at the level of the hiatal hernia. I will give the patient dose of Reglan to encourage GI motility and assist with passive advancement of the tube to the level of the antrum. The plan is to provide a loading dose of the Plavix through the NG tube and once the patient is extubated tomorrow he likely will be able to swallow a continue p.o. medication. General surgery will remain available as needed Coding Level of Care Code Acute Code for Chg Fwd Diagnoses History of pulmonary embolism Z86.711 Chronic anticoagulation Z79.[address] elevation myocardial infarction (STEMI) I21.3 Developmental delay, profound R62.50 Unresponsiveness R41.89 Breakthrough seizure G40.919
[2024-12-15] MEDS: sodium chloride 0.9% 1,000 ML 75 ML IV (20:38)
[2024-12-15] MEDS: propofol 1,000 MG/100 ML INJ 24 MG IV (20:40)
[2024-12-15] MEDS: metoclopramide 5 mg/mL SDV 2 mL 10 MG IVP (21:07)
[2024-12-15] MEDS: pantoprazole 40 mg SDV IVP (21:09)
[2024-12-15 21:49] LABS: Partial Thromboplastin Time 101.1 SECONDS (23.9-36.7)
--- NOTE | 2024-12-15 22:36 | ECG_ITS ---
[employer] Test Date: 2024-12-15 Pat Name: Jorge Luis Lucas Department: Room: ICU10 Gender: Male Gold Buyer: : 1955 Requested By: Lena Levine Order Number: [id number] Ash MD: ARIELLE RAIN Measurements Intervals Marcellus Rate: 96 P: 59 AR: 144 QRS: -16 QRSD: 90 T: 83 QT: 352 QTc: 446 Interpretive Statements SINUS RHYTHM POSSIBLE LEFT ATRIAL ENLARGEMENT [-0.1mV P-WAVE IN V1/V2] LOW QRS VOLTAGE [QRS DEFLECTION < 0.5/1.0 mV IN LIMB/CHEST LEADS] POSSIBLE RIGHT VENTRICULAR CONDUCTION DELAY [RSR (QR) IN V1/V2] ANTEROSEPTAL MYOCARDIAL INFARCTION , PROBABLY RECENT [40+ ms Q WAVE IN V1-V4] ST ELEVATION, CONSIDER LATERAL INJURY [MARKED ST ELEVATION W/O NORMALLY INFLECTED T-WAVE IN I/aVL/V5/V6] ACUTE [place] Compared to ECG 12/15/2024 16:21:36 Sinus tachycardia no longer present Myocardial infarct finding still present ST (T wave) deviation still present Electronically Signed On 12-16-2024 23:20:58 DISPLAY ARTIST by ARIELLE RAIN [email or web address]
[2024-12-15] MEDS: levETIRAcetam 1,000 MG/100 ML PREMIX 400 MG IV (23:03)
[2024-12-16] VITALS (162 sets, daily range): BP systolic 72–116; BP diastolic 56–87; PULSE 82–128; RESP 14–29; TEMP 37.1–37.2; O2SAT 92–100
[2024-12-16] MEDS: vancomycin 2,000 MG/400 ML PIGGYBACK 200 MG IV
[2024-12-16] MEDS: fentaNYL 1,000 MCG/100 ML BAG 2.5 MCG IV (00:01)
[2024-12-16] MEDS: norepinephrine 4 MG/250 ML BAG 60 MG IV ×2 (00:18→04:59)
[2024-12-16 00:32] LABS: Troponin 5 6HR > 10000 ng/L (0-15)
[2024-12-16 00:33] LABS: Troponin 5 6HR Delta 5353 ng/L (0-12)
[2024-12-16] MEDS: propofol 1,000 MG/100 ML INJ 16.77 MG IV (00:50)
--- NOTE | 2024-12-16 01:50 | XRR_ITS ---
PROCEDURE INFORMATION: Exam: XR Chest Exam date and time: 12/16/2024 1:49 AM Age: 69 years old Clinical indication: Screening exam; Other screening; Additional info: Central line placement TECHNIQUE: Imaging protocol: Radiologic exam of the chest. Views: 1 view. COMPARISON: CR (CHEST, ) 12/15/2024 7:37 PM FINDINGS: Tubes, catheters and devices: Right IJ central venous catheter with the tip projecting at or immediately above the cavoatrial junction. Endotracheal tube in satisfactory position, tip projecting 2.5 cm above the love. Enteric tube terminating within the proximal stomach. Lungs: Unchanged bilateral lower lung infiltrate, [id number]. Pleural spaces: Unremarkable. No pleural effusion. No pneumothorax. Heart/Mediastinum: Unremarkable. No cardiomegaly. Bones/joints: Unremarkable. XR/XR chest 1V portable [id number] IMPRESSION: 1. Right IJ central venous catheter with the tip projecting at or immediately above the cavoatrial junction. Negative for pneumothorax. 2. Endotracheal and enteric tubes in stable position.
[2024-12-16] MEDS: piperacillin-tazobactam 3.375 GM in sodium chloride 0.9% (plus) 50 ML IV ×3 (02:00→16:14)
[2024-12-16] MEDS: vasopressin 40 UNIT/100 ML PREMIX 4.5 UNIT IV (02:01)
--- NOTE | 2024-12-16 02:31 | ED_ITS ---
HPI - Chest Pain 2 General: Chief Complaint: Chest Pain Stated Complaint: stemi Time Seen by Provider: 12/15/24 16:19 Source: EMS Mode of arrival: EMS Limitations: altered mental status and physical limitation History of Present Illness: Procedure note only Related Data Home Medications Medication Instructions Recorded Confirmed dextromethorphan-guaifenesin 10 5 ml PO Q4H PRN Cough 05/17/21 12/15/24 mg-100 mg/5 mL oral syrup (Tussin DM) multivitamin 1 tab PO DAILY 05/02/23 12/15/24 acetaminophen 325 mg tablet 325 mg PO QID PRN pain 05/08/23 12/15/24 citalopram 10 mg tablet 10 mg PO DAILY 05/08/23 12/15/24 famotidine 20 mg tablet 20 mg PO DAILY 05/08/23 12/15/24 lactulose 10 gram/15 mL oral 30 ml PO DAILY 05/08/23 12/15/24 solution polyethylene glycol 3350 17 17 g PO DAILY 05/08/23 12/15/24 gram/dose oral powder fluticasone propionate 50 1 spray intranasal DAILY 06/20/23 12/15/24 mcg/actuation nasal spray,suspension magnesium hydroxide 400 mg/5 mL 30 ml PO DAILY PRN Constipation 06/20/23 12/15/24 oral suspension (Milk of Magnesia) sennosides 8.6 mg tablet (Elizabet-melanie) 8.6 mg PO DAILY 06/20/23 12/15/24 levetiracetam 1,000 mg tablet 1,000 mg PO BID 08/22/23 12/15/24 cetirizine 10 mg tablet 10 mg PO DAILY 12/15/24 12/15/24 meloxicam 7.5 mg tablet 7.5 mg PO DAILY 12/15/24 12/15/24 perampanel 6 mg tablet (Fycompa) 6 mg PO QAM 12/15/24 12/15/24 Previous Rx's Medication Instructions Recorded pantoprazole 40 mg tablet,delayed 40 mg PO BID 6 weeks #84 tabs 08/22/23 release (Protonix) Allergies Allergy/AdvReac Type Severity Reaction Status Date / Time TIDE LAUNDRY SOAP Allergy ALGY-Rash Uncoded 08/22/23 08:09 [facility] ED 2 PFSH: Medical History Acute anemia ARDS survivor Protein calorie malnutrition ARDS (adult respiratory distress syndrome) Sepsis Hypernatremia Respiratory failure with hypoxia Developmental delay, profound Transaminitis Elevated lactic acid level Thrombocytopenia Pulmonary embolism Pneumonia due to COVID-19 virus Surgical History S/P percutaneous endoscopic gastrostomy (PEG) tube placement (05/27/21) removed 05/04/2022 Social History Smoking and tobacco/nicotine status: never used tobacco/nicotine Procedures Central Line Placement Right IJ: Time Out Performed: Yes Patient Placed on Monitor/Pulse Ox: Yes MD Prep: mask, gown and gloves Central Line Prep: Chlorhexidine scrub and sterile drapes applied Local Anesthetic: lidocaine 1% Amount of anesthesia used (mL): 3 Ultrasound Used for Placement: Yes Central Line Lumen Inserted: triple Post Procedure: sutured in place, good blood return, all ports aspirated, flushed, capped and sterile dressing applied Post Procedure X-Ray: tip of catheter in good position and no pneumothorax seen Patient Tolerated Procedure: well Complications: none Additional Comments: Done in ICU at approximately 1:30 AM on 12/16/2024 at the request of Dr. Snyder Course 2 Vital Signs: Vital signs: Vital Signs Temperature 98.1 F 12/15/24 19:15 Pulse Rate 97 12/15/24 22:50 Respiratory Rate 14 12/16/24 02:12 Blood Pressure 94/69 12/15/24 22:50 Pulse Oximetry 98 12/16/24 02:12 Oxygen Delivery Me thod Room Air 12/15/24 16:19 Fraction of Inspir ed Oxygen 40 12/16/24 02:12 MDM - Chest Pain Medical Decision Making Procedure note only Lab Data 12/15/24 16:35 12/15/24 16:35 Laboratory Results WBC 23.40 10^3/uL (3.29-11.43) H 12/15/24 16:35 RBC 5.40 10^6/uL (3.85-5.65) 12/15/24 16:35 Hgb 13.80 g/dL (11.27-16.99) 12/15/24 16:35 Hct 45.5 % (37-53) 12/15/24 16:35 MCV 84.3 fl (82-101) 12/15/24 16:35 MCH 25.6 pg (27-33) L 12/15/24 16:35 MCHC 30.3 g/dL (30-55) 12/15/24 16:35 RDW 17.6 % (12.1-15.1) H 12/15/24 16:35 Plt Count 343 10^3/cmm (157-399) 12/15/24 16:35 MPV 12.0 fL (7.4-10.4) H 12/15/24 16:35 Neut % (Auto) 80.7 % 12/15/24 16:35 Lymph % (Auto) 6.2 % 12/15/24 16:35 [place] % (Auto) 12.3 % 12/15/24 16:35 Eos % (Auto) 0.0 % 12/15/24 16:35 Baso % (Auto) 0.2 % 12/15/24 16:35 Neut # (Auto) 18.90 10^3/uL (1.8-7.7) H 12/15/24 16:35 Lymph # (Auto) 1.5 10^3/uL (0.8-4.8) 12/15/24 16:35 [place] # (Auto) 2.9 10^3/uL (0.2-0.9) H 12/15/24 16:35 Eos # (Auto) 0.0 10^3/uL (0.0-0.8) 12/15/24 16:35 Baso # (Auto) 0.1 10^3/uL (0.0-0.1) 12/15/24 16:35 Nucleated RBC % (auto) 0 % 12/15/24 16:35 Nucleated RBCs # 0.0 /100WBC 12/15/24 16:35 Sodium 143 mmol/L (136-145) 12/15/24 16:35 Potassium 4.3 mmol/L (3.5-5.1) 12/15/24 16:35 Chloride 105 mmol/L (98-107) 12/15/24 16:35 Carbon Dioxide 26 mmol/L (22-29) 12/15/24 16:35 Anion Gap 16.3 (5-19) 12/15/24 16:35 BUN 19 mg/dL (8-23) 12/15/24 16:35 Creatinine 1.0 mg/dL (0.7-1.2) 12/15/24 16:35 GFR Calculation 74.5 mL/min (90-130) L 12/15/24 16:35 Glucose 126 mg/dL (65-115) H 12/15/24 16:35 Estimat Average Glucose 114 12/15/24 16:35 Hemoglobin A1c 5.6 % (4.0-6.0) 12/15/24 16:35 Calculated Osmolality 300 mOsm/kg (285-295) H 12/15/24 16:35 Lactic Acid 2.1 mmol/L (0.5-2.2) 12/15/24 16:35 Calcium 9.4 mg/dL (8.5-10.5) 12/15/24 16:35 Total Bilirubin 0.7 mg/dL (0.15-1.2) 12/15/24 16:35 AST 441 U/L (0-40) H 12/15/24 16:35 ALT 105 U/L (0-41) H 12/15/24 16:35 Alkaline Phosphatase 168 U/L (40-130) H 12/15/24 16:35 Troponin T Baseline 4647 ng/L (0-15) H* 12/15/24 16:35 Total Protein 7.0 g/dL (6.6-8.7) 12/15/24 16:35 Albumin 3.8 g/dL (3.5-5.2) 12/15/24 16:35 Globulin 3.2 g/dL (1.3-4.6) 12/15/24 16:35 Triglycerides 57 mg/dL (0-150) 12/15/24 16:35 Cholesterol 164 mg/dL (0-200) 12/15/24 16:35 LDL Cholesterol, Calc 96 mg/dL (50-129) 12/15/24 16:35 Total VLDL Cholesterol 11 mg/dL (0-30) 12/15/24 16:35 HDL Cholesterol 57 mg/dL (60-100) L 12/15/24 16:35 Cholesterol/HDL Ratio 2.88 mg/dL (1.0-5.00) 12/15/24 16:35 Procalcitonin 0.25 ng/mL (0-0.5) 12/15/24 16:35 TSH 1.54 uIU/mL (0.27-4.20) 12/15/24 16:35 All radiology interpretation(s) finalized by discharge Discharge Plan Discharge Patient Disposition: Admitted As Inpatient Admit Provider: Bharathi Downey Clinical Impression: ST elevation myocardial infarction (STEMI) Condition: Stable Coding Level of Care Code ED Fire Lieutenant Marine for Júnior El
[2024-12-16 03:01] LABS: Bilirubin Urine 1+ (Negative); Blood Urine Negative (Negative); Glucose Urine UA Negative (Normal); Ketones Urine Trace (Negative); Leukocyte Esterase Urine Negative (Negative); Nitrate Urine Negative (Negative); Protein Urine 3+ (Negative); Urine Appearance Clear (CLEAR); Urine Color Dark Yellow (Yellow); pH Urine 5.5 (5-7)
[2024-12-16 03:06] LABS: Add Urine Microscopic? YES; Bacteria Urine None Seen /hpf; Hyaline Casts Urine 2.87 /lpf; RBC Urine 0-2 /hpf (0-2); Squamous Epithelial Cell Urine 0-5 /hpf (0-5); WBC Urine 0-5 /hpf (0-5)
[2024-12-16 03:10] LABS: Specific Gravity, Urine 1.037 (1.005-1.030)
--- NOTE | 2024-12-16 03:41 | PC.NURSE ---
Pt arrived from laboratory analyst at 1906 with IV access to left upper arm and left EJ. Upon arrival was intubated on 100% FIO2, 50 of Propofol, 10 of Levophed, and Aggrastat per protocol. Verbal orders received from Dr. Downey to reflect these medications. Plan per Dr. Downey to leave sheath in left groin through the night and reevaluate in morning. Continue Aggrastat through the night if unable to place NG or OG tube and administer Plavix. If able to administer, stop Aggrastat 2 hours after Plavix administration. Stated he had consulted Dr. Horan as ED and laboratory analyst staff had been unsuccessful in placing NG or OG tube and he would be coming to unit to try to place one. Dr. Horan arrived to unit at [address] gastric tube. Multiple attempts were made at placing tube, and eventually was in stomach but would not advance to preferred location. Per Dr. Horan, stated tube would be safe for Plavix administration only at that time, and do not hook tube to suction. Following NG placement, spoke with Dr. Snyder regarding IV access. Pt was to receive multiple medications and antibiotics that were not compatible, and was receiving Levophed in EJ. Relayed that I had spoken with Dr. Downey and pt would be safe to get central line once aggrastat was stopped. Dr. Snyder was agreeable to central line placement and stated he would discuss with ED physician. Later in shift patient began having softer blood pressures, levophed titrated up to maximum allowed per protocol. New order received for fixed rate Vasopressin. Attempted to contact pt's guardian for consent, only provided office number and was unable to reach. Dr. Snyder made aware and okayed placement due to medical necessity. At approx 0130 Dr. Penaloza arrived from ED and placed right IJ per protocol, see note for same.
[2024-12-16 03:43] LABS: ABG PCO2 35.2 mmHg (35-45); ABG PH Result 7.35 (7.35-7.45); Arterial Blood Gas Hematocrit 34.7 % (42-52); Base Excess ABG -5.4 mmol/L (-2.0-2.0); Blood Gas Allen Test Pos; Blood Gas Sample Type Arterial; HCO3 ABG 19.6 mmol/L (22-26)
[2024-12-16 03:45] LABS: Blood Gas Operator Identificat ED; Blood Gas Sample Site Radial, left; Blood Gas Tidal Volume 0.48; Oxygen Device VENT; PO2 FiO2 Ratio Arterial Blood 202
[2024-12-16] MEDS: pantoprazole 40 mg SDV IVP ×2 (05:02→16:15)
[2024-12-16 06:23] LABS: Basophils # 0.1 10^3/uL (0.0-0.1); Basophils % 0.4 %; Hematocrit 36.9 % (37-53); Lymphocytes # 1.3 10^3/uL (0.8-4.8); Lymphocytes % 4.3 %; Mean Corpuscular HGB Conc 29.5 g/dL (30-55); Mean Corpuscular Hemoglobin 25.2 pg (27-33); Mean Corpuscular Volume 85.4 fl (82-101); Mean Platelet Volume 11.7 fL (7.4-10.4); Monocytes % 10.3 %; Neutrophils # 24.33 10^3/uL (1.8-7.7); Neutrophils % 83.8 %; Nucleated Red Blood Cells % 0 %; Platelet Count 354 10^3/cmm (157-399); Red Blood Count 4.32 10^6/uL (3.85-5.65); Red Cell Distribution Width 17.5 % (12.1-15.1); White Blood Count 29.05 10^3/uL (3.29-11.43)
[2024-12-16 06:40] LABS: INR 1.21 (0.8-1.2)
[2024-12-16 06:44] LABS: Alanine Aminotransferase 86 U/L (0-41); Albumin Level 2.8 g/dL (3.5-5.2); Alkaline Phosphatase 125 U/L (40-130); Anion Gap 18.9 (5-19); Aspartate Amino Transferase 290 U/L (0-40); Blood Urea Nitrogen 26 mg/dL (8-23); Calcium 7.8 mg/dL (8.5-10.5); Carbon Dioxide 19 mmol/L (22-29); Chloride 108 mmol/L (98-107); Creatinine Clr Calc Pharmacy 48.9075; Globulin 2.9 g/dL (1.3-4.6); Glomerular Filtration Rate 43.3 mL/min (90-130); Glucose 163 mg/dL (65-115); Magnesium 1.7 mg/dL (1.7-2.3); Osmolality Calculated 302 mOsm/kg (285-295); Potassium 3.9 mmol/L (3.5-5.1); Sodium 142 mmol/L (136-145); Total Bilirubin 0.5 mg/dL (0.15-1.2); Total Protein 5.7 g/dL (6.6-8.7)
[2024-12-16] MEDS: norepinephrine 4 MG/250 ML BAG 75 MG IV ×4 (07:13→21:03)
--- NOTE | 2024-12-16 08:00 | XR_ITS ---
WS: [id number] PORTABLE CHEST HISTORY: FOLLOW UP COMPARISON: CT abdomen 05/02/2023, 12/16/2024 chest radiograph Endotracheal tube remains in good position ending several centimeters above the love. RIGHT IJ line terminates in the expected location of the RIGHT atrium. No change. Nasogastric tube has been placed . Tube courses to the RIGHT of midline and terminates near the GE junction. On a prior CT large hiata l hernia was noted. Tip would be expected to be in the stomach based upon the prior CT. Scattered reticular opacifications. No dense consolidation. Slight progression of interstitial promin ence since the prior study. Small LEFT pleural effusion. Cardiac size: Normal. Mediastinum/Aorta: Mild atherosclerosis aorta. No osseous abnormality seen. XR/XR chest 1V portable [id number] IMPRESSION: 1. Satisfactory position of the endotracheal tube. 2. Nasogastric tube terminates at the GE junction the patient does have a larg e hiatal hernia was described in [address] Tip is probably within the herniat ed stomach. 3. Mild increase in the reticular opacifications within both lungs. May be com bination of atelectasis or pneumonitis versus edema. No dense consolidation.
[2024-12-16 08:19] LABS: Glucose Point of Care 142 mg/dL (70-110)
[2024-12-16] MEDS: citalopram 20 mg Tablet 10 MG PO (08:52)
[2024-12-16] MEDS: clopidogrel 75 mg Tablet PO (08:52)
[2024-12-16] MEDS: cetirizine 10 mg Tablet PO (08:52)
[2024-12-16] MEDS: lactulose oral liq 20 gm/30 mL UDC PO (08:53)
[2024-12-16] MEDS: aspirin 81 mg EC Tablet PO (08:53)
--- NOTE | 2024-12-16 09:39 | ECG_ITS ---
[employer] Test Date: 2024-12-16 Pat Name: Jorge Luis Lucas Department: Room: ICU10 Gender: Male Business Development: : 1955 Requested By: Shon Marin Order Number: [id number] Reading MD: ARIELLE RAIN Measurements Intervals [place] Rate: 106 P: -16 DE: 128 QRS: -48 QRSD: 102 T: 87 QT: 336 QTc: 446 Interpretive Statements SINUS TACHYCARDIA LEFT AXIS DEVIATION [QRS AXIS < -30] LOW QRS VOLTAGE [QRS DEFLECTION < 0.5/1.0 mV IN LIMB/CHEST LEADS] PATTERN CONSISTENT WITH PULMONARY DISEASE INCOMPLETE RIGHT BUNDLE BRANCH BLOCK [90+ ms QRS DURATION, TERMINAL R IN V1/V2, 40+ ms S IN I/aVL/V4/V5/V6] SEPTAL MYOCARDIAL INFARCTION , OF INDETERMINATE AGE [40+ ms Q WAVE IN V1/V2] Compared to ECG 12/15/2024 22:36:56 Left-axis deviation now present Incomplete right bundle-branch block now present Sinus rhythm no longer present Electronically Signed On 12-16-2024 23:20:25 LEASING ASSISTANT by ARIELLE RAIN [id number]
[2024-12-16] MEDS: levETIRAcetam 1,000 MG/100 ML PREMIX 400 MG IV ×2 (10:50→22:01)
[2024-12-16] MEDS: ipratropium-albuterol 3 mL Neb INHALATION ×3 (11:43→19:48)
[2024-12-16] MEDS: VANCOMYCIN ADD-Vantage 1,000 MG in 0.9% NaCl ADD-Vantage 250 ML 250 MG IV (12:02)
[2024-12-16] MEDS: propofol 1,000 MG/100 ML INJ 7.19 MG IV (14:37)
[2024-12-16] MEDS: vasopressin 40 UNIT/100 ML PREMIX 6 UNIT IV (14:50)
--- NOTE | 2024-12-16 16:17 | P.PN_ITS ---
Subjective 2 Subjective: Hospital course, labs appreciated. On examination patient is on mechanical ventilator currently on settings of FiO2 40% with tidal volume of 480 with PEEP of 5 saturating more than 95%. On Levophed of 20, vaso 0.6 with mean artery pressure of 66. Urine output of 600 cc overnight. Currently with sedation on fentanyl and propofol. Vitals/I&O/Wt Last Vital Signs Temp 98.7 F 12/16/24 02:00 Pulse 100 12/16/24 15:32 Resp 14 12/16/24 15:32 BP 98/71 12/16/24 14:00 Pulse Ox 100 12/16/24 15:32 O2 Del Method Mechanical Ventilation 12/16/24 15:32 FiO2 40 12/16/24 15:32 12/16/24 12/16/24 12/16/24 06:59 14:59 22:59 Intake Total 710.511 / 747.751 895.623 / 895.623 Balance 710.511 / 747.751 895.623 / 895.623 Weight last 48 hrs Weight 79.832 kg Weight 80 kg Weight 79.832 kg Physical Exam 2 Narrative: General: Mechanically ventilated, sedated HEENT: PERRLA, pupils bilaterally equal and reactive Chest: Normal vesicular breath sounds, no added sounds, equal good air entry bilaterally CVS: S1-S2 regular, pansystolic murmur at apex, no tachycardia, no gallops, no rubs Abdomen: Soft, nontender, no organomegaly, bowel sounds present Neuro: Sedated Urinary Catheter Management: Lamb: Cath Placed During This Visit: yes Reason for Continuing Indwelling Catheter: Accurate Measurement of Urinary Output in Critically Ill Patients Urinary Catheter Date of Insertion: 12/15/24 Urinary Catheter Time of Insertion: 22:30 Data 12/16/24 06:10 12/16/24 06:10 Micro: Microbiology 12/15/24 19:20 Gram Stain - Final Sputum - Endotracheal Tube Aspirate 12/15/24 18:15 Blood Culture - Preliminary Blood SPECIMEN COLLECTED 12/15/24 18:18 Blood Culture - Preliminary Blood SPECIMEN COLLECTED A&P Assessment and plan (1) Cardiogenic shock: Setting of acute ST elevation MN. Troponin up to 5000's. Oxygen supplementation keeping saturation over 90%. Mean artery pressure to be maintained over 65. Currently on Levophed and vasopressin. Wean accordingly. Monitor CVP. Normal saline bolus 1000 cc. Continue with NS at 75 cc/h. Low concerns for septic shock for now. Patient does have leukocytosis. Follow- up blood cultures, sputum culture, urine culture. Check MRSA swab. For now continue with IV antibiotics including vancomycin and Zosyn. If MRSA swab is negative will discontinue vancomycin. Dose antibiotics as per creatinine clearance. (2) ST elevation myocardial infarction (STEMI): Cardiology on board. Cardiogram pending. Aspirin, Plavix, statin. Appreciate A1c, lipid panel. Is not on beta-dawson as patient is in cardiogenic shock for now. (3) Acute kidney injury: In setting of cardiogenic shock. Strict input output charting, daily weights. Medical reconciliation done for nephrotoxic drugs. Monitor electrolytes every 12 hourly. (4) Transaminitis: (5) History of pulmonary embolism: (6) Developmental delay, profound: (7) Leukocytosis: (8) Guardianship: (9) Goals of care, counseling/discussion: Plan Continue home chronic medications including Keppra. Goals of care discussion: Had detailed goals of care discussion with patient's caregiver from senior living at bedside. Patient has a state appointed guardian Mr. Nic Bryson. Tried calling Nic on the cell phone but not able to get in touch. As per the caregiver at bedside. Patient is dependent completely on for ADLs. He is bedbound. We discussed in detail that unfortunately there is a high chance of patient not surviving and even if he does there is a high likelihood of him having worsening quality of life than what he already has. Discussed about CODE STATUS. Discussed that unfortunately if patient has to have cardiac arrest chances of his survival and quality of life will go even poor than what they are right now. Caregivers will discuss further with patient's DPOA about goals of care and would let us know. Will try to call Mr. Nic Bryson again on the cell phone. Anesthesia: Propofol, fentanyl Glycemic control: Not needed Nutrition: N.p.o. CODE STATUS: Full code. PUD prophylaxis: Protonix DVT prophylaxis: Heparin 5000 every 12 hourly Continue with care at ICU This documentation was created by [employer] quality control expert software. Every effort was made to ensure accuracy of quality control expert. Any obvious errors or omissions should be clarified with the author of the document. Attestations 2 Medical Necessity Statement*: Requires further hospitalization for management of cardiogenic shock in setting of acute ST elevation MN post PCI Critical Care Time: The high probability of a clinically significant, sudden or life threatening deterioration of the patient's [cardiac, pulmonary, renal] system(s) required my full and direct attention, intervention and personal management. The critical care time is as shown. This time is in addition to time spent performing any reported procedures but includes the following: [x] Data and vital sign review and interpretation [x] Patient assessment, examination and intervention [x] Documentation [x] Medication orders and management Critical Care Time (min): 90 Coding Level of Care Code Critical Care >/= 30 minutes Critical care time (in minutes): 90 The high probability of a clinically significant, sudden or life threatening deterioration, as referenced in this documentation, required my full and direct attention, intervention and personal management. The critical care time shown is in addition to time spent performing any reported separately billable procedures and includes the following: [x] Data and vital sign review and interpretation [x ] Patient assessment, examination and intervention [x] Medication orders and management [x] Patient/Family updates as able [x] Care Coordination and Documentation. Other Coding Information This patient has a high probability of clinically significant, sudden or life threatening deterioration of the patient's (neurological/pulmonary/cardiac/renal/ID/endocrine) systems required my full, direct attention, the highest level of physician preparedness for urgent intervention and personal management. I managed/supervised life or organ supporting interventions that required frequent physician assessment. I devoted my full attention in the ICU to the direct care of this patient for the period of time indicated above. Time I spent with family or surrogate(s) is included only if the patient was incapable of providing necessary information or participating in decision making. This time includes the following services provided: Telemetry review Mechanical Ventilation Hemodynamic interpretation, assessment and management Review and interpretation of CXR Review and interpretation of lab values Review and interpretation of microbiologic data and culture results Review of medications and administration Review and interpretation of Nutrition requirements and management Discussion of management with other consultants and services Clinical update to family members Diagnoses Cardiogenic shock R57.0 ST elevation myocardial infarction (STEMI) I21.3 Acute kidney injury N17.9 Transaminitis R74.01 History of pulmonary embolism Z86.711 Developmental delay, profound R62.50 Leukocytosis D72.829 Guardianship Goals of care, counseling/discussion Z71.89
[2024-12-16] MEDS: norepinephrine 4 MG/250 ML BAG 67.5 MG IV (17:02)
[2024-12-16] MEDS: heparin 5,000 unit/mL INJ 1 mL 5000 UNIT SUBCUT (17:04)
--- NOTE | 2024-12-16 17:31 | USCV_ITS ---
Jorge Luis Lucas Age: 69 Gender: M : 1955 Exam Date: 12/16/2024 16:37 Ordering Phys: Sandy Cortes MD Technologist: [place] [facility] [place]: nstemi BP: 113 / 87 HR: 94 Rhythm: Sinus Technical Quality: Adequate MEASUREMENTS (Male / Female) Normal Values 2D ECHO LVOT Diameter 2.0 cm LV Ejection Fraction MOD 4C 21.8 % LV Ejection Fraction MOD 2C 40.8 % LV Ejection Fraction 2C AL 40.4 % LA Diameter 3.6 cm RA Systolic Volume 4C AL 54.8 ml RA Systolic Volume 4C MOD 51.9 ml LA Sys Volume AL 30.9 cm cubed LA Sys Volume Index AL 15.2 cm cubed/m squared Aorta at Sinotubular Diameter 2.9 cm M-MODE LA Ao Ratio MM 1.1 AV Cusp Separation MM 1.4 cm DOPPLER AV Peak Velocity 88.0 cm/s LVOT Peak Velocity 88.0 cm/s AV Area Cont Eq vti 3.8 cm squared AV Area Cont Eq pk 3.3 cm squared MV Peak Velocity 79.0 cm/s MV Area PHT 5.0 cm squared Mitral E to A Ratio 0.6 TR Peak Velocity 165.0 cm/s TR Peak Gradient 10.9 mmHg TV Peak E Velocity 53.0 cm/s PV Peak Velocity 67.5 cm/s FINDINGS Left Ventricle Normal left ventricular cavity size. Severely decreased left ventricular systolic function. Left ventricular ejection fraction is estimated at 20%. There appeared to be a sept anterior and apical wall akinesis, there is a lateral wall hypokinesis, it is consistent with ischemic heart disease.Grade I/IV diastolic dysfunction (abnormal relaxation filling pattern), normal to mildly elevated filling pressures. Right Ventricle The right ventricle is normal in size and function. Right Atrium The right atrium is normal in size. Left Atrium The left atrium is normal in size. Mitral Valve Structurally normal mitral valve without significant stenosis or prolapse. There is no mitral regurgitation. Aortic Valve Structurally normal aortic valve without significant sclerosis or stenosis. There is no aortic regurgitation. Tricuspid Valve Structurally normal tricuspid valve without significant stenosis or regurgitation. Pulmonary artery systolic pressure is normal. Pulmonic Valve Structurally normal pulmonic valve without significant stenosis. There is no pulmonic regurgitation. Pericardium Normal pericardium without effusion. Aorta Normal ascending aorta dimension. IVC Inferior vena cava not visualized. CONCLUSIONS Normal left ventricular cavity size. Severely decreased left ventricular systolic function. Left ventricular ejection fraction is estimated at 20%. There appeared to be a sept anterior and apical wall akinesis, there is a lateral wall hypokinesis, it is consistent with ischemic heart disease.Grade I/IV diastolic dysfunction (abnormal relaxation filling pattern), normal to mildly elevated filling pressures. No significant valve abnormalities. There is no pericardial effusion. Bharathi Downey MD (Electronically Signed) Final Date: 16 December 2024 21:46 S
[2024-12-16 17:46] LABS: Alanine Aminotransferase 77 U/L (0-41); Albumin Level 2.8 g/dL (3.5-5.2); Alkaline Phosphatase 120 U/L (40-130); Anion Gap 19.3 (5-19); Aspartate Amino Transferase 144 U/L (0-40); Blood Urea Nitrogen 30 mg/dL (8-23); Calcium 7.4 mg/dL (8.5-10.5); Carbon Dioxide 17 mmol/L (22-29); Chloride 114 mmol/L (98-107); Creatinine Clr Calc Pharmacy 37.2304; Globulin 3.1 g/dL (1.3-4.6); Glomerular Filtration Rate 31.7 mL/min (90-130); Glucose 170 mg/dL (65-115); Osmolality Calculated 312 mOsm/kg (285-295); Potassium 4.3 mmol/L (3.5-5.1); Sodium 146 mmol/L (136-145); Total Bilirubin 0.6 mg/dL (0.15-1.2); Total Protein 5.9 g/dL (6.6-8.7)
[2024-12-16 18:07] LABS: Glucose Point of Care 156 mg/dL (70-110)
[2024-12-16] MEDS: insulin lispro 100 unit/1 mL SUBCUT (18:08)
[2024-12-16] MEDS: dextrose 5%-sod chloride 0.9% 1,000 ML 100 ML IV (18:08)
--- NOTE | 2024-12-16 21:22 | P.PN_ITS ---
Subjective 2 Subjective: Patient remains intubated on propofol and 2 pressor with cardiogenic shock He is status post PCI to proximal to mid LAD and mid RCA for ST elevation LA Vitals/I&O/Wt Last Vital Signs Temp 98.7 F 12/16/24 02:00 Pulse 83 12/16/24 19:48 Resp 21 H 12/16/24 19:48 BP 101/77 12/16/24 17:45 Pulse Ox 97 12/16/24 19:48 O2 Del Method Mechanical Ventilation 12/16/24 19:48 FiO2 40 12/16/24 19:48 12/16/24 12/16/24 12/16/24 06:59 14:59 22:59 Intake Total 710.511 / 747.751 977.748 / 977.748 822.833 / 1800.581 Balance 710.511 / 747.751 977.748 / 977.748 822.833 / 1800.581 Weight last 48 hrs Weight 176 lb Weight 176 lb 5.917 oz Weight 176 lb Physical Exam 2 Const: OTHER: GENERAL: Patient is sedated and intubated HEART: Regular S1 and S2. No murmur, rub or gallop. LUNGS: Clear to auscultate bilaterally. CENTRAL NERVOUS SYSTEM: Cannot assess due to sedation EXTREMITIES: Lower extremities with out edema bilaterally. Contractures Urinary Catheter Management: Lamb: Cath Placed During This Visit: yes Reason for Continuing Indwelling Catheter: Accurate Measurement of Urinary Output in Critically Ill Patients Urinary Catheter Date of Insertion: 12/15/24 Urinary Catheter Time of Insertion: 22:30 Data 12/16/24 06:10 12/16/24 17:00 Micro: Microbiology 12/15/24 18:15 Blood Culture - Preliminary Blood NEGATIVE TO DATE 12/15/24 18:18 Blood Culture - Preliminary Blood NEGATIVE TO DATE 12/15/24 19:20 Gram Stain - Final Sputum - Endotracheal Tube Aspirate A&P Assessment and plan (1) ST elevation myocardial infarction (STEMI): (2) Developmental delay, profound: (3) History of pulmonary embolism: (4) Cardiogenic shock: Plan ST elevation LA of the anterior wall Two-vessel coronary disease including mid RCA status post drug-eluting stent to proximal to mid LAD and mid RCA Severely depressed left ventricular ejection fraction by left ventriculography Cardiogenic shock secondary to ST ovation LA History of profound mental delay l History of being bed ridden and contractures Continue pressors IV fluid challenge as patient appeared to be dry Short and long-term prognosis is guarded and not good, discussed with the caregiver, power of regulatory attorney is not approachable currently at this point we will continue as full code Attestations 2 Medical Necessity Statement*: Patient require continuation hospitalization for above defined care Coding Level of Care Code Acute Code for Chg Fwd Diagnoses ST elevation myocardial infarction (STEMI) I21.3 Developmental delay, profound R62.50 History of pulmonary embolism Z86.711 Cardiogenic shock R57.0
--- NOTE | 2024-12-16 21:37 | ECG_ITS ---
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: : 1955 Requested By: Kenya Hernandez Order Number: [id number] Reading MD: ARIELLE RAIN Measurements Intervals [place] Rate: 124 P: 0 SC: 0 QRS: 50 QRSD: 102 T: 61 QT: 306 QTc: 441 Interpretive Statements ATRIAL FLUTTER/TACHYCARDIA WITH RAPID VENTRICULAR RESPONSE LOW QRS VOLTAGE [QRS DEFLECTION < 0.5/1.0 mV IN LIMB/CHEST LEADS] POSSIBLE RIGHT VENTRICULAR CONDUCTION DELAY [RSR (QR) IN V1/V2] ANTEROSEPTAL MYOCARDIAL INFARCTION , OF INDETERMINATE AGE [40+ ms Q WAVE IN V1-V4] MARKED ST ELEVATION, CONSIDER LATERAL INJURY [MARKED ST ELEVATION W/O NORMALLY INFLECTED T-WAVE IN I/aVL/V5/V6] ACUTE FL Compared to ECG 12/16/2024 09:39:56 Sinus tachycardia no longer present Electronically Signed On 12-16-2024 23:10:04 [employer] by ARIELLE RAIN [email or web address]
--- NOTE | 2024-12-16 21:55 | PC.NURSE ---
Pt cardiac rhythm with frequent changes from SR to A fib with RVR. EKG performed, called to Dr. Downey, new order received for 500 ml NS bolus.
[2024-12-16] MEDS: sodium chloride 0.9% 500 ML 999 ML IV (22:01)
[2024-12-17] VITALS (111 sets, daily range): BP systolic 77–113; BP diastolic 56–84; PULSE 73–149; RESP 17–27; TEMP 36.3–37.3; O2SAT 93–100
[2024-12-17 00:08] LABS: Glucose Point of Care 205 mg/dL (70-110)
[2024-12-17] MEDS: insulin lispro 100 unit/1 mL SUBCUT ×4 (00:11→17:38)
[2024-12-17] MEDS: piperacillin-tazobactam 3.375 GM in sodium chloride 0.9% (plus) 50 ML IV ×3 (00:12→16:07)
[2024-12-17] MEDS: VANCOMYCIN ADD-Vantage 1,000 MG in 0.9% NaCl ADD-Vantage 250 ML 250 MG IV ×2 (00:12→11:10)
[2024-12-17] MEDS: sodium chloride 0.9% 500 ML 999 ML IV (00:23)
[2024-12-17] MEDS: norepinephrine 4 MG/250 ML BAG 52.5 MG IV (00:52)
[2024-12-17] MEDS: heparin 5,000 unit/mL INJ 1 mL 5000 UNIT SUBCUT ×2 (03:37→16:08)
[2024-12-17] MEDS: propofol 1,000 MG/100 ML INJ 7.19 MG IV ×2 (03:37→17:55)
[2024-12-17] MEDS: dextrose 5%-sod chloride 0.9% 1,000 ML 100 ML IV ×2 (03:38→14:14)
[2024-12-17 03:50] LABS: Basophils # 0.1 10^3/uL (0.0-0.1); Basophils % 0.5 %; Eosinophils % 0.1 %; Hematocrit 30.1 % (37-53); Lymphocytes # 0.9 10^3/uL (0.8-4.8); Lymphocytes % 4.8 %; Mean Corpuscular HGB Conc 29.6 g/dL (30-55); Mean Corpuscular Hemoglobin 25.6 pg (27-33); Mean Corpuscular Volume 86.5 fl (82-101); Mean Platelet Volume 12.3 fL (7.4-10.4); Monocytes # 1.7 10^3/uL (0.2-0.9); Monocytes % 9.3 %; Neutrophils # 15.61 10^3/uL (1.8-7.7); Neutrophils % 84.8 %; Nucleated Red Blood Cells % 0 %; Platelet Count 250 10^3/cmm (157-399); Red Blood Count 3.48 10^6/uL (3.85-5.65); Red Cell Distribution Width 17.7 % (12.1-15.1); White Blood Count 18.43 10^3/uL (3.29-11.43)
[2024-12-17 04:14] LABS: Alanine Aminotransferase 70 U/L (0-41); Albumin Level 2.4 g/dL (3.5-5.2); Alkaline Phosphatase 112 U/L (40-130); Aspartate Amino Transferase 91 U/L (0-40); Blood Urea Nitrogen 35 mg/dL (8-23); Calcium 6.8 mg/dL (8.5-10.5); Carbon Dioxide 15 mmol/L (22-29); Chloride 117 mmol/L (98-107); Creatinine Clr Calc Pharmacy 35.5381; Globulin 2.8 g/dL (1.3-4.6); Glucose 207 mg/dL (65-115); Osmolality Calculated 318 mOsm/kg (285-295); Sodium 147 mmol/L (136-145); Total Bilirubin 0.4 mg/dL (0.15-1.2); Total Protein 5.2 g/dL (6.6-8.7)
[2024-12-17 04:23] LABS: ABG PCO2 27.3 mmHg (35-45); ABG PH Result 7.32 (7.35-7.45); Alveolar-Arterial Oxygen Gradi 21.4 mmHg (5-10); Arterial Blood Gas Hematocrit 33.8 % (42-52); Base Excess ABG -10.7 mmol/L (-2.0-2.0); Blood Gas Operator Identificat JDB; Blood Gas Sample Site Brachial, right; Blood Gas Sample Type Arterial; Blood Gas Tidal Volume 0.48; Carboxyhemoglobin 0.7 %THgb (0.4-20.1); HGB O2 Sat 94.9 % (95-100); Methemoglobin 1.3 % (0.4-1.5); Oxygen Device VENT; Oxygen Saturation ABG 96.8; PO2 ABG 90.2 mmHg (80.0-100.0); PO2 FiO2 Ratio Arterial Blood 225; Potassium Level - ABG 3.9 mmol/L (3.5-5.0)
[2024-12-17 05:21] LABS: Glucose Point of Care 178 mg/dL (70-110)
[2024-12-17] MEDS: pantoprazole 40 mg SDV IVP ×2 (05:40→17:35)
--- NOTE | 2024-12-17 06:00 | XRR_ITS ---
PROCEDURE INFORMATION: Exam: XR Chest Exam date and time: 12/17/2024 5:04 AM Age: 69 years old Clinical indication: Other: Intubation; Additional info: Intubated TECHNIQUE: Imaging protocol: Radiologic exam of the chest. Views: 1 view. COMPARISON: CR XR chest 1V portable [id number] 12/16/2024 7:49 AM FINDINGS: Tubes, catheters and devices: Endotracheal tube terminates 5 cm above the lvoe. Gastric tube terminates in a large hiatal hernia. Right IJ catheter. Lungs: Bibasilar hypoventilatory changes. Chronic interstitial fibrosis. Pleural spaces: Unremarkable. No pleural effusion. No pneumothorax. Heart/Mediastinum: Unremarkable. No cardiomegaly. Bones/joints: Unremarkable. XR/XR chest 1V portable [id number] IMPRESSION: No acute findings.
[2024-12-17] MEDS: ipratropium-albuterol 3 mL Neb INHALATION ×3 (08:03→19:46)
[2024-12-17] MEDS: aspirin 81 mg EC Tablet PO (08:05)
[2024-12-17] MEDS: citalopram 20 mg Tablet 10 MG PO (08:06)
[2024-12-17] MEDS: cetirizine 10 mg Tablet PO (08:07)
[2024-12-17] MEDS: clopidogrel 75 mg Tablet PO (08:07)
[2024-12-17] MEDS: lactulose oral liq 20 gm/30 mL UDC PO (08:07)
[2024-12-17] MEDS: norepinephrine 4 MG/250 ML BAG 15 MG IV (08:31)
[2024-12-17] MEDS: levETIRAcetam 1,000 MG/100 ML PREMIX 400 MG IV ×2 (09:16→22:30)
[2024-12-17] MEDS: FUROsemide 10 mg/mL SDV 10mL 100 MG IVP (09:22)
--- NOTE | 2024-12-17 10:10 | ECG_ITS ---
[employer] Test Date: 2024-12-17 Pat Name: Jorge Luis Lucas Department: Room: ICU10 Gender: Male Family Law Legal Assistant: : 1955 Requested By: Shon Marin Order Number: [id number] Ash MD: Anuel Freitas M.D. Measurements Intervals [place] Rate: 140 P: 0 WV: 0 QRS: 47 QRSD: 104 T: 58 QT: 294 QTc: 449 Interpretive Statements ATRIAL FLUTTER/TACHYCARDIA WITH RAPID VENTRICULAR RESPONSE LOW QRS VOLTAGE [QRS DEFLECTION < 0.5/1.0 mV IN LIMB/CHEST LEADS] POSSIBLE RIGHT VENTRICULAR CONDUCTION DELAY [RSR (QR) IN V1/V2] SEPTAL MYOCARDIAL INFARCTION , PROBABLY RECENT [40+ ms Q WAVE IN V1/V2] MARKED ST ELEVATION, CONSIDER ANTERIOR INJURY [MARKED ST ELEVATION W/O NORMALLY INFLECTED T-WAVE IN V2-V5] ACUTE NV Compared to ECG 12/16/2024 21:37:50 No significant changes Electronically Signed On 12-21-2024 23:19:16 RIGGER UP by Anuel Freitas M.D. [email or web address]
--- NOTE | 2024-12-17 10:10 | PC.NURSE ---
Dr Marin ordered 100mg Lasix IVP, upon administering medication via slow push, Vendor Management Associate rounded and gave orders to not admin the already scanned lasix. Only 50mg given per Dr Downey.
[2024-12-17] MEDS: albumin 25 G/100 ML BAG 60 G IV ×2 (11:06→18:00)
[2024-12-17 11:14] LABS: Glucose Point of Care 180 mg/dL (70-110)
[2024-12-17] MEDS: amiodarone 150 MG/100 ML PREMIX 400 MG IV (11:47)
--- NOTE | 2024-12-17 12:36 | PC.NURSE ---
Spoke with Dr. Flores, heathered NG usage for further medication administrations and free water flushes. No tube feedings.
[2024-12-17 15:50] LABS: Anion Gap 20.5 (5-19); Blood Urea Nitrogen 36 mg/dL (8-23); Calcium 6.9 mg/dL (8.5-10.5); Carbon Dioxide 14 mmol/L (22-29); Chloride 116 mmol/L (98-107); Creatinine Clr Calc Pharmacy 34.8407; Glomerular Filtration Rate 28.5 mL/min (90-130); Glucose 149 mg/dL (65-115); Osmolality Calculated 315 mOsm/kg (285-295); Potassium 3.5 mmol/L (3.5-5.1); Sodium 147 mmol/L (136-145)
--- NOTE | 2024-12-17 16:44 | P.PN_ITS ---
Subjective 2 Subjective: No acute events overnight. On examination today patient currently on Levophed of 3, vasopressin at 0.3 with mean artery pressure of around 70, currently on mechanical ventilation with FiO2 of 40%, PEEP of 8. Documented urine output of 300 cc in last 24 hours. Patient overall around 6 L positive. Vitals/I&O/Wt Last Vital Signs Temp 97.4 F L 12/17/24 08:00 Pulse 82 12/17/24 15:20 Resp 21 H 12/17/24 15:10 BP 79/60 12/17/24 14:00 Pulse Ox 95 12/17/24 15:10 O2 Del Method Mechanical Ventilation 12/17/24 15:10 FiO2 35 12/17/24 15:10 12/17/24 12/17/24 12/17/24 06:59 14:59 22:59 Intake Total 1773.970 / 3675.301 3801.625 / 3801.625 Output Total 300 / 300 500 / 500 Balance 1473.970 / 3375.301 3301.625 / 3301.625 Weight last 48 hrs Weight 84.64 kg Weight 79.832 kg Weight 80 kg Physical Exam 2 Narrative: General: Mechanically ventilated, sedated HEENT: PERRLA, pupils bilaterally equal and reactive Chest: Normal vesicular breath sounds, no added sounds, equal good air entry bilaterally CVS: S1-S2 regular, pansystolic murmur at apex, no tachycardia, no gallops, no rubs Abdomen: Soft, nontender, no organomegaly, bowel sounds present Neuro: Sedated Urinary Catheter Management: Lamb: Cath Placed During This Visit: yes Reason for Continuing Indwelling Catheter: Accurate Measurement of Urinary Output in Critically Ill Patients Urinary Catheter Date of Insertion: 12/15/24 Urinary Catheter Time of Insertion: 22:30 Data 12/17/24 03:17 12/17/24 15:21 Micro: Microbiology 12/15/24 19:20 Gram Stain - Final Sputum - Endotracheal Tube Aspirate Sputum Culture - Preliminary 12/16/24 02:50 Urine Culture - Preliminary Urine Catheterized 12/15/24 18:15 Blood Culture - Preliminary Blood NEGATIVE TO DATE 12/15/24 18:18 Blood Culture - Preliminary Blood NEGATIVE TO DATE A&P Assessment and plan (1) Cardiogenic shock: Setting of acute ST elevation AK. Troponin up to 5000's. Oxygen supplementation keeping saturation over 90%. Mean artery pressure to be maintained over 65. Currently on Levophed of 3 and vasopressin of 0.3. Will plan to wean off vasopressin. If needed will increase Levophed as per mean artery pressure. CVP to be maintained between 8-12. Start on albumin every 8 hourly. IV fluid at 100 cc/h. Low concerns for septic shock for now. Patient does have leukocytosis. Follow- up blood cultures, sputum culture, urine culture. Check MRSA swab. For now continue with IV antibiotics including vancomycin and Zosyn. If MRSA swab is negative will discontinue vancomycin. Dose antibiotics as per creatinine clearance. Check daily Vanco random levels. (2) ST elevation myocardial infarction (STEMI): Cardiology on board. Post PCI to LAD and RCA. Echocardiogram done showed EF of 20% with severely depressed LV functions, akinesia of anterior septal, apical wall, lateral wall hypokinesia, grade 1 diastolic dysfunction. Continue with aspirin Plavix, statin. Appreciate A1c, lipid panel. Is not on beta-dawson as patient is in cardiogenic shock for now. (3) Atrial fibrillation with RVR: Occasional runs of A-fib with RVR. Given concerns for cardiogenic shock being on multiple pressors for now we will start on amiodarone drip after 150 mg bolus. Will continue to monitor. Target heart rate below 100. (4) Acute kidney injury: In setting of cardiogenic shock. Strict input output charting, daily weights. Medical reconciliation done for nephrotoxic drugs. Developing hypernatremia. Monitor electrolytes every 12 hourly. (5) Hypernatremia: Along with acute kidney injury. Fluids changed to D5 NS as above. Start on free water flushes 250 cc every 4 hours. Repeat BMP in afternoon. (6) Anemia: History of iron deficiency anemia in the past. Post recent EGD and colonoscopy. Found to have esophagitis. Hemoglobin down to 8.9. Check iron panel, reticulocyte count, LDH, haptoglobin. Target hemoglobin more than 8. Continue with Protonix twice daily. (7) Leukocytosis: (8) Transaminitis: In setting of multiorgan dysfunction from cardiogenic shock. Monitor daily. (9) History of pulmonary embolism: In setting of COVID-19 before. Not on anticoagulation anymore given history of GI bleed. (10) Developmental delay, profound: (11) Guardianship: (12) Goals of care, counseling/discussion: Plan Continue home chronic medications including Keppra. Goals of care discussion: Had detailed goals of care discussion with patient's caregiver from [employer] at bedside. Patient has a state appointed guardian Mr. Nic Bryson. Tried calling Nic on the cell phone but not able to get in touch. As per the caregiver at bedside. Patient is dependent completely on for ADLs. He is bedbound. We discussed in detail that unfortunately there is a high chance of patient not surviving and even if he does there is a high likelihood of him having worsening quality of life than what he already has. Discussed about CODE STATUS. Discussed that unfortunately if patient has to have cardiac arrest chances of his survival and quality of life will go even poor than what they are right now. Caregivers will discuss further with patient's DPOA about goals of care and would let us know. Will try to call Mr. Nic Bryson again on the cell phone. 12/17: Was able to get in touch with Nicsuki Bryson/state appointed guardian for Mr. Lucas. Had a detailed discussion regarding prognosis, concerns for possible arrhythmia given significant cardiomyopathy with EF of 20% in setting of cardiogenic shock and acute AK. For now the guardian would want patient to remain full code, continue with current care. Anesthesia: Propofol, fentanyl Glycemic control: Not needed, hypoglycemia protocol Nutrition: N.p.o. Free water flushes 250 cc every 4 hours CODE STATUS: Full code. PUD prophylaxis: Protonix DVT prophylaxis: Heparin 5000 every 12 hourly Continue with care at ICU This documentation was created by [employer] rehabilitation services director software. Every effort was made to ensure accuracy of rehabilitation services director. Any obvious errors or omissions should be clarified with the author of the document. Attestations 2 Medical Necessity Statement*: Requires further hospitalization for management of cardiogenic shock in setting of acute ST ovation AK post PCI, acute kidney injury as patient remains mechanically ventilated for respiratory failure and baseline history of developmental disorder Critical Care Time: The high probability of a clinically significant, sudden or life threatening deterioration of the patient's [cardiac, renal, GI, respiratory] system(s) required my full and direct attention, intervention and personal management. The critical care time is as shown. This time is in addition to time spent performing any reported procedures but includes the following: [x] Data and vital sign review and interpretation [x] Patient assessment, examination and intervention [x] Documentation [x] Medication orders and management Critical Care Time (min): 90 Coding Level of Care Code Critical Care >/= 30 minutes Critical care time (in minutes): 90 The high probability of a clinically significant, sudden or life threatening deterioration, as referenced in this documentation, required my full and direct attention, intervention and personal management. The critical care time shown is in addition to time spent performing any reported separately billable procedures and includes the following: [x] Data and vital sign review and interpretation [x ] Patient assessment, examination and intervention [x] Medication orders and management [x] Patient/Family updates as able [x] Care Coordination and Documentation. Other Coding Information This patient has a high probability of clinically significant, sudden or life threatening deterioration of the patient's (neurological/pulmonary/cardiac/renal/ID/endocrine) systems required my full, direct attention, the highest level of physician preparedness for urgent intervention and personal management. I managed/supervised life or organ supporting interventions that required frequent physician assessment. I devoted my full attention in the ICU to the direct care of this patient for the period of time indicated above. Time I spent with family or surrogate(s) is included only if the patient was incapable of providing necessary information or participating in decision making. This time includes the following services provided: Telemetry review Mechanical Ventilation Hemodynamic interpretation, assessment and management Review and interpretation of CXR Review and interpretation of lab values Review and interpretation of microbiologic data and culture results Review of medications and administration Review and interpretation of Nutrition requirements and management Discussion of management with other consultants and services Clinical update to family members Diagnoses Cardiogenic shock R57.0 ST elevation myocardial infarction (STEMI) I21.3 Atrial fibrillation with RVR I48.91 Acute kidney injury N17.9 Hypernatremia E87.0 Anemia D64.9 Leukocytosis D72.829 Transaminitis R74.01 History of pulmonary embolism Z86.711 Developmental delay, profound R62.50 Guardianship Goals of care, counseling/discussion Z71.89
[2024-12-17 17:29] LABS: Glucose Point of Care 165 mg/dL (70-110)
[2024-12-17 17:46] LABS: Iron 8 ug/dL (59-158); Percent Saturation 4.8 % (20-50); Total Iron Binding Capacity 165 mcg/dl; Unsaturated Iron Binding 157 ug/dL (112-347)
[2024-12-17] MEDS: norepinephrine 4 MG/250 ML BAG 37.5 MG IV (17:57)
[2024-12-17 17:58] LABS: Lactate Dehydrogenase 1088 U/L (135-225)
[2024-12-17 20:18] LABS: MRSA PCR OZH (swab) MRSA Detected (Negative)
[2024-12-18] VITALS (106 sets, daily range): BP systolic 91–143; BP diastolic 63–94; PULSE 69–122; RESP 20–41; TEMP 36.3–37.3; O2SAT 84–100
[2024-12-18] MEDS: norepinephrine 4 MG/250 ML BAG 37.5 MG IV ×2 (00:40→07:32)
--- NOTE | 2024-12-18 01:02 | P.PN_ITS ---
Subjective 2 Subjective: Please note that this note is from yesterday 12/17/2024 Remains in cardiogenic shock Continues to be on pressor This morning given bolus of IV fluid FiO2 remains 30 to 40% on the vent with PEEP of 5 patient developed atrial fibrillation Vitals/I&O/Wt Last Vital Signs Temp 97.4 F L 12/17/24 08:00 Pulse 81 12/17/24 22:00 Resp 22 H 12/17/24 23:05 BP 93/68 12/17/24 18:00 Pulse Ox 96 12/17/24 23:05 O2 Del Method Mechanical Ventilation 12/17/24 19:46 FiO2 35 12/17/24 23:05 12/17/24 12/17/24 12/18/24 14:59 22:59 06:59 Intake Total 3847.000 / 3847.000 600.617 / 4447.617 Output Total 500 / 500 500 / 1000 Balance 3347.000 / 3347.000 100.617 / 3447.617 Weight last 48 hrs Weight 186 lb 9.6 oz Weight 176 lb Weight 176 lb 5.917 oz Physical Exam 2 Const: OTHER: GENERAL: Patient is sedated and intubated HEART: Regular S1 and S2. No murmur, rub or gallop. LUNGS: Clear to auscultate bilaterally. CENTRAL NERVOUS SYSTEM: Cannot assess due to sedation EXTREMITIES: Lower extremities with out edema bilaterally. Contractures Urinary Catheter Management: Lamb: Cath Placed During This Visit: yes Reason for Continuing Indwelling Catheter: Accurate Measurement of Urinary Output in Critically Ill Patients Urinary Catheter Date of Insertion: 12/15/24 Urinary Catheter Time of Insertion: 22:30 Data 12/17/24 03:17 12/17/24 15:21 Micro: Microbiology 12/15/24 19:20 Gram Stain - Final Sputum - Endotracheal Tube Aspirate Sputum Culture - Preliminary 12/16/24 02:50 Urine Culture - Preliminary Urine Catheterized A&P Assessment and plan (1) ST elevation myocardial infarction (STEMI): (2) Developmental delay, profound: (3) History of pulmonary embolism: (4) Cardiogenic shock: Plan ST elevation IA of the anterior wall Two-vessel coronary disease including mid RCA status post drug-eluting stent to proximal to mid LAD and mid RCA Severely depressed left ventricular ejection fraction by left ventriculography Cardiogenic shock secondary to ST ovation IA History of profound mental delay l History of being bed ridden and contractures Continue pressors IV fluid challenge as patient appeared to be dry Short and long-term prognosis is guarded and not good, discussed with the caregiver, power of prosecuting attorney is not approachable currently at this point we will continue as full code On today's visit dated 12/17/2024 patient blood pressure is somewhat improved, urine output has increased after IV fluid and diuretics, pressors are titrated downward Continue current management Continue aspirin and statin Plavix Condition guarded with short and long-term poor prognosis Attestations 2 Medical Necessity Statement*: Patient require continuation hospitalization for above defined care Coding Level of Care Code Acute Code for g Fwd Diagnoses ST elevation myocardial infarction (STEMI) I21.3 Developmental delay, profound R62.50 History of pulmonary embolism Z86.711 Cardiogenic shock R57.0
[2024-12-18] MEDS: dextrose 5%-sod chloride 0.9% 1,000 ML 100 ML IV ×2 (01:17→09:35)
[2024-12-18] MEDS: piperacillin-tazobactam 3.375 GM in sodium chloride 0.9% (plus) 50 ML IV ×3 (01:51→17:14)
[2024-12-18] MEDS: albumin 25 G/100 ML BAG 60 G IV ×3 (02:03→20:22)
[2024-12-18 03:39] LABS: Basophils # 0.1 10^3/uL (0.0-0.1); Basophils % 0.5 %; Eosinophils # 0.1 10^3/uL (0.0-0.8); Eosinophils % 0.8 %; Hematocrit 28.4 % (37-53); Lymphocytes # 1.1 10^3/uL (0.8-4.8); Lymphocytes % 6.7 %; Mean Corpuscular HGB Conc 29.6 g/dL (30-55); Mean Corpuscular Hemoglobin 25.6 pg (27-33); Mean Corpuscular Volume 86.6 fl (82-101); Mean Platelet Volume 12.5 fL (7.4-10.4); Monocytes # 1.3 10^3/uL (0.2-0.9); Monocytes % 8.2 %; Neutrophils # 13.15 10^3/uL (1.8-7.7); Neutrophils % 82.9 %; Nucleated Red Blood Cells % 0 %; Platelet Count 178 10^3/cmm (157-399); Red Blood Count 3.28 10^6/uL (3.85-5.65); Red Cell Distribution Width 17.9 % (12.1-15.1); White Blood Count 15.88 10^3/uL (3.29-11.43)
[2024-12-18 04:00] LABS: Alanine Aminotransferase 57 U/L (0-41); Albumin Level 3.1 g/dL (3.5-5.2); Alkaline Phosphatase 117 U/L (40-130); Anion Gap 21.5 (5-19); Aspartate Amino Transferase 48 U/L (0-40); Blood Urea Nitrogen 34 mg/dL (8-23); Calcium 7.1 mg/dL (8.5-10.5); Carbon Dioxide 14 mmol/L (22-29); Chloride 113 mmol/L (98-107); Creatinine Clr Calc Pharmacy 28.6192; Globulin 2.4 g/dL (1.3-4.6); Glomerular Filtration Rate 22.7 mL/min (90-130); Glucose 164 mg/dL (65-115); Osmolality Calculated 311 mOsm/kg (285-295); Potassium 3.5 mmol/L (3.5-5.1); Sodium 145 mmol/L (136-145); Total Bilirubin 0.4 mg/dL (0.15-1.2); Total Protein 5.5 g/dL (6.6-8.7)
[2024-12-18 04:01] LABS: Magnesium 1.9 mg/dL (1.7-2.3)
[2024-12-18] MEDS: heparin 5,000 unit/mL INJ 1 mL 5000 UNIT SUBCUT ×2 (05:48→17:17)
[2024-12-18] MEDS: propofol 1,000 MG/100 ML INJ 7.19 MG IV (05:48)
[2024-12-18] MEDS: pantoprazole 40 mg SDV IVP ×2 (05:49→17:15)
[2024-12-18 05:53] LABS: ABG PCO2 24.3 mmHg (35-45); ABG PH Result 7.35 (7.35-7.45); Arterial Blood Gas Hematocrit 36.8 % (42-52); Base Excess ABG -10.8 mmol/L (-2.0-2.0); Blood Gas Allen Test Pos; Blood Gas Operator Identificat JDB; Blood Gas Sample Site Brachial, left; Blood Gas Sample Type Arterial; Carboxyhemoglobin 1.5 %THgb (0.4-20.1); HCO3 ABG 13.2 mmol/L (22-26); HGB O2 Sat 93.9 % (95-100); Methemoglobin 1.2 % (0.4-1.5); Oxygen Device VENT; Oxygen Saturation ABG 96.5; PO2 ABG 85.2 mmHg (80.0-100.0); Potassium Level - ABG 3.2 mmol/L (3.5-5.0)
[2024-12-18 05:54] LABS: Alveolar-Arterial Oxygen Gradi 22.2 mmHg (5-10); Blood Gas Tidal Volume 0.48; PO2 FiO2 Ratio Arterial Blood 213
[2024-12-18 06:21] LABS: Glucose Point of Care 162 mg/dL (70-110)
[2024-12-18] MEDS: ipratropium-albuterol 3 mL Neb INHALATION ×4 (07:57→19:46)
[2024-12-18] MEDS: aspirin 81 mg EC Tablet PO (08:16)
[2024-12-18] MEDS: citalopram 20 mg Tablet 10 MG PO (08:16)
[2024-12-18] MEDS: cetirizine 10 mg Tablet PO (08:16)
[2024-12-18] MEDS: lactulose oral liq 20 gm/30 mL UDC PO (08:17)
[2024-12-18] MEDS: clopidogrel 75 mg Tablet PO (08:17)
[2024-12-18] MEDS: fentaNYL 1,000 MCG/100 ML BAG 2.5 MCG IV (09:31)
[2024-12-18] MEDS: FUROsemide 10 mg/mL SDV 10mL 80 MG IVP (09:36)
[2024-12-18] MEDS: levETIRAcetam 1,000 MG/100 ML PREMIX 400 MG IV ×2 (09:41→21:53)
[2024-12-18 10:48] LABS: Glucose Point of Care 156 mg/dL (70-110)
--- NOTE | 2024-12-18 14:21 | PM.PN ---
Subjective Subjective: No acute events overnight. Today morning patient propofol was weaned off after which he was able to walk with the ventilator. Was placed back on full ventilator support after recovering tachypneic. Currently on FiO2 of 35%, PEEP of 8 saturating more than a 5%. Document urine output of 1500 cc in last 24 hours. Currently on Levophed of 10, sedation with propofol of 15. Amiodarone drip 0.5. CVP mantained around 8. Vitals/I&O/Wt Last Vital Signs Temp 98.8 F 12/18/24 08:00 Pulse 117 H 12/18/24 14:00 Resp 22 H 12/18/24 14:00 BP 114/77 12/18/24 14:00 Pulse Ox 90 12/18/24 14:00 O2 Del Method Mechanical Ventilation 12/18/24 11:24 FiO2 35 12/18/24 11:24 12/17/24 12/18/24 12/18/24 22:59 06:59 14:59 Intake Total 600.617 / 4447.617 2266.447 / 6714.064 1482.491 / 1482.491 Output Total 500 / 1000 550 / 1550 Balance 100.617 / 3447.617 1716.447 / 5164.064 1482.491 / 1482.491 Weight last 48 hrs Weight 87.815 kg Weight 84.64 kg Physical Exam Narrative: General: Mechanically ventilated, sedated HEENT: PERRLA, pupils bilaterally equal and reactive Chest: Normal vesicular breath sounds, no added sounds, equal good air entry bilaterally CVS: S1-S2 regular, pansystolic murmur at apex, no tachycardia, no gallops, no rubs Abdomen: Soft, nontender, no organomegaly, bowel sounds present Neuro: Sedated Urinary Catheter Management: Lamb: Cath Placed During This Visit: yes Reason for Continuing Indwelling Catheter: Accurate Measurement of Urinary Output in Critically Ill Patients Urinary Catheter Date of Insertion: 12/15/24 Urinary Catheter Time of Insertion: 22:30 Data 12/18/24 03:08 12/18/24 03:08 Micro: Microbiology 12/16/24 02:50 Urine Culture - Final Urine Catheterized 12/15/24 19:20 Gram Stain - Final Sputum - Endotracheal Tube Aspirate Sputum Culture - Preliminary A&P Assessment and plan (1) Cardiogenic shock: Setting of acute ST elevation ID. Troponin up to 5000's. Oxygen supplementation keeping saturation over 90%. Mean artery pressure to be maintained over 65. Currently on Levophed of 3 and vasopressin of 0.3. Will plan to wean off vasopressin. If needed will increase Levophed as per mean artery pressure. CVP to be maintained between 8-12. Start on albumin every 8 hourly. IV fluid at 100 cc/h. Low concerns for septic shock for now. Patient does have leukocytosis. Follow-up blood cultures, sputum culture, urine culture. Check MRSA swab. For now continue with IV antibiotics including vancomycin and Zosyn. If MRSA swab is negative will discontinue vancomycin. Dose antibiotics as per creatinine clearance. Check daily Vanco random levels. (2) ST elevation myocardial infarction (STEMI): Cardiology on board. Post PCI to LAD and RCA. Echocardiogram done showed EF of 20% with severely depressed LV functions, akinesia of anterior septal, apical wall, lateral wall hypokinesia, grade 1 diastolic dysfunction. Continue with aspirin Plavix, statin. Appreciate A1c, lipid panel. Is not on beta-dawson as patient is in cardiogenic shock for now. (3) Atrial fibrillation with RVR: Occasional runs of A-fib with RVR. Given concerns for cardiogenic shock being on multiple pressors for now we will start on amiodarone drip after 150 mg bolus. Will continue to monitor. Target heart rate below 100. (4) Acute kidney injury: In setting of cardiogenic shock. Strict input output charting, daily weights. Medical reconciliation done for nephrotoxic drugs. Developing hypernatremia. Monitor electrolytes every 12 hourly. (5) Hypernatremia: Along with acute kidney injury. Fluids changed to D5 NS as above. Start on free water flushes 250 cc every 4 hours. Repeat BMP in afternoon. (6) Anemia: History of iron deficiency anemia in the past. Post recent EGD and colonoscopy. Found to have esophagitis. Hemoglobin down to 8.9. Check iron panel, reticulocyte count, LDH, haptoglobin. Target hemoglobin more than 8. Continue with Protonix twice daily. (7) Leukocytosis: (8) Transaminitis: In setting of multiorgan dysfunction from cardiogenic shock. Monitor daily. (9) History of pulmonary embolism: In setting of COVID-19 before. Not on anticoagulation anymore given history of GI bleed. (10) Developmental delay, profound: (11) Guardianship: (12) Goals of care, counseling/discussion: Plan Continue home chronic medications including Keppra. Goals of care discussion: Had detailed goals of care discussion with patient's caregiver from [facility] at bedside. Patient has a state appointed guardian Mr. Nic Bryson. Tried calling Nic on the cell phone but not able to get in touch. As per the caregiver at bedside. Patient is dependent completely on for ADLs. He is bedbound. We discussed in detail that unfortunately there is a high chance of patient not surviving and even if he does there is a high likelihood of him having worsening quality of life than what he already has. Discussed about CODE STATUS. Discussed that unfortunately if patient has to have cardiac arrest chances of his survival and quality of life will go even poor than what they are right now. Caregivers will discuss further with patient's DPOA about goals of care and would let us know. Will try to call Mr. Nic Bryson again on the cell phone. 12/17: Was able to get in touch with Nic Bryson/state appointed guardian for Mr. Lucas. Had a detailed discussion regarding prognosis, concerns for possible arrhythmia given significant cardiomyopathy with EF of 20% in setting of cardiogenic shock and acute ID. For now the guardian would want patient to remain full code, continue with current care. Anesthesia: Propofol, fentanyl Glycemic control: Not needed, hypoglycemia protocol Nutrition: N.p.o. Free water flushes 250 cc every 4 hours CODE STATUS: Full code. PUD prophylaxis: Protonix DVT prophylaxis: Heparin 5000 every 12 hourly Gaurded prognosis Continue with care at ICU Plan for the day: Continue with D5 NS at 100 cc/h. Continue with free water flushes with 250 cc every 4 hours. Hypernatremia improving. Repeat BMP in afternoon. Maintain Levophed at around 10 today for good renal perfusion. Maintain mean artery pressure 65. Continue with amiodarone drip at 0.5. Heart rate has remained stable. Plan for sedation vacation today. Will add fentanyl again. IV Lasix 80 mg one-time. Strict input output charting, daily weights. Continue current IV antibiotics. MRSA swab positive. Follow-up blood and sputum culture. If blood cultures remain negative we will plan to discontinue antibiotics for the next 24 to 48 hours. Appreciate vancomycin trough levels. Monitor vancomycin random levels daily. Vancomycin to be dosed accordingly. Start on IV iron supplementation. Maintain mean artery pressure 65. Monitor CVP. Continue with IV albumin. Check abdominal x-ray to rule out ileus. Continue with lactulose daily. Maintain n.p.o. for now. If remains intubated for more than 24 hours we will plan for starting of tube feeds. Care discussed in detail with caregiver at bedside along with director of [facility] over the phone. All the questions were answered. This documentation was created by [employer] enterprise sales executive software. Every effort was made to ensure accuracy of enterprise sales executive. Any obvious errors or omissions should be clarified with the author of the document. Attestations Medical Necessity Statement*: Requires further hospitalization for management of cardiogenic shock, post ST elevation [place] post PCI, respiratory failure as patient remains on mechanical ventilation, vasopressors in a patient with baseline developmental delay Critical Care Time: The high probability of a clinically significant, sudden or life threatening deterioration of the patient's [cardiac, renal, pulmonary] system(s) required my full and direct attention, intervention and personal management. The critical care time is as shown. This time is in addition to time spent performing any reported procedures but includes the following: [x] Data and vital sign review and interpretation [x] Patient assessment, examination and intervention [x] Documentation [x] Medication orders and management Critical Care Time (min): 90 Coding Level of Care Code Critical Care >/= 30 minutes Critical care time (in minutes): 90 The high probability of a clinically significant, sudden or life threatening deterioration, as referenced in this documentation, required my full and direct attention, intervention and personal management. The critical care time shown is in addition to time spent performing any reported separately billable procedures and includes the following: [x] Data and vital sign review and interpretation [x] Patient assessment, examination and intervention [x] Medication orders and management [x] Patient/Family updates as able [x] Care Coordination and Documentation. Diagnoses Cardiogenic shock R57.0 ST elevation myocardial infarction (STEMI) I21.3 Atrial fibrillation with RVR I48.91 Acute kidney injury N17.9 Hypernatremia E87.0 Anemia D64.9 Leukocytosis D72.829 Transaminitis R74.01 History of pulmonary embolism Z86.711 Developmental delay, profound R62.50 Guardianship Goals of care, counseling/discussion Z71.89
--- NOTE | 2024-12-18 15:04 | XR_ITS ---
WS: [id number] KUB, AP supine view, 12/18/2024 Clinical Data: ileus Comparison: Acute abdomen series, 06/07/2021 Findings: No abnormal intraabdominal masses or calcifications are seen. There is no dilatated small bowel but t here is dilatation of the colon with a fecal impaction. Monitor leads are on the abdominal wall. XR/XR abdomen 1V* [id number] Impression: Colonic ileus with fecal impaction.
[2024-12-18] MEDS: norepinephrine 4 MG/250 ML BAG 30 MG IV (15:25)
[2024-12-18 16:53] LABS: Anion Gap 19.2 (5-19); Blood Urea Nitrogen 32 mg/dL (8-23); Calcium 7.6 mg/dL (8.5-10.5); Carbon Dioxide 15 mmol/L (22-29); Chloride 118 mmol/L (98-107); Creatinine Clr Calc Pharmacy 30.1561; Glomerular Filtration Rate 23.7 mL/min (90-130); Glucose 164 mg/dL (65-115); Osmolality Calculated 319 mOsm/kg (285-295); Potassium 3.2 mmol/L (3.5-5.1); Sodium 149 mmol/L (136-145)
[2024-12-18 17:24] LABS: Glucose Point of Care 162 mg/dL (70-110)
[2024-12-18] MEDS: dextrose 5% 1,000 ML 100 ML IV (17:24)
[2024-12-18] MEDS: iron sucrose 200 MG in sodium chloride 0.9% (100 ml) 100 ML 220 MG IV (17:26)
[2024-12-18] MEDS: lidocaine 1% 5 ML in potassium chloride premix 100 ML 26.25 ML IV (17:28)
--- NOTE | 2024-12-18 20:21 | P.PN_ITS ---
Subjective 2 Subjective: No overnight event blood pressure sats are stable Vent setting stable Patient still on propofol Vitals/I&O/Wt Last Vital Signs Temp 99.2 F 12/18/24 18:13 Pulse 85 12/18/24 19:46 Resp 22 H 12/18/24 19:46 BP 110/77 12/18/24 18:00 Pulse Ox 93 12/18/24 19:46 O2 Del Method Mechanical Ventilation 12/18/24 19:46 FiO2 40 12/18/24 19:46 12/18/24 12/18/24 12/18/24 06:59 14:59 22:59 Intake Total 2266.447 / 6714.064 1482.491 / 1482.491 441.151 / 1923.642 Output Total 550 / 1550 1850 / 1850 Balance 1716.447 / 5164.064 1482.491 / 1482.491 -1408.849 / 73.642 Weight last 48 hrs Weight 193 lb 9.6 oz Weight 186 lb 9.6 oz Physical Exam 2 Const: OTHER: GENERAL: Patient is sedated and intubated HEART: Regular S1 and S2. No murmur, rub or gallop. LUNGS: Clear to auscultate bilaterally. CENTRAL NERVOUS SYSTEM: Cannot assess due to sedation EXTREMITIES: Lower extremities with out edema bilaterally. Contractures Urinary Catheter Management: Lamb: Cath Placed During This Visit: yes Reason for Continuing Indwelling Catheter: Accurate Measurement of Urinary Output in Critically Ill Patients Urinary Catheter Date of Insertion: 12/15/24 Urinary Catheter Time of Insertion: 22:30 Data 12/18/24 03:08 12/18/24 15:23 Micro: Microbiology 12/15/24 19:20 Gram Stain - Final Sputum - Endotracheal Tube Aspirate Sputum Culture - Final 12/16/24 02:50 Urine Culture - Final Urine Catheterized A&P Assessment and plan (1) ST elevation myocardial infarction (STEMI): (2) Developmental delay, profound: (3) History of pulmonary embolism: (4) Cardiogenic shock: Plan ST elevation [place] of the anterior wall Two-vessel coronary disease including mid RCA status post drug-eluting stent to proximal to mid LAD and mid RCA Severely depressed left ventricular ejection fraction by left ventriculography Cardiogenic shock secondary to ST ovation RI History of profound mental delay l History of being bed ridden and contractures Continue pressors IV fluid challenge as patient appeared to be dry Short and long-term prognosis is guarded and not good, discussed with the caregiver, power of regulatory attorney is not approachable currently at this point we will continue as full code On today's visit dated 12/17/2024 patient blood pressure is somewhat improved, urine output has increased after IV fluid and diuretics, pressors are titrated downward Continue current management Continue aspirin and statin Plavix Condition guarded with short and long-term poor prognosis On today's visit dated 12/18/2024, patient remained stable hemodynamically stable on Levophed and propofol Continue current management Hopefully tomorrow if more stable we will try to wean off Attestations 2 Medical Necessity Statement*: Patient require continuation hospitalization for above defined care Coding Level of Care Code Acute Code for [facility] Fwd Diagnoses ST elevation myocardial infarction (STEMI) I21.3 Developmental delay, profound R62.50 History of pulmonary embolism Z86.711 Cardiogenic shock R57.0
[2024-12-18] MEDS: propofol 1,000 MG/100 ML INJ 4.79 MG IV (21:53)
[2024-12-19] VITALS (108 sets, daily range): BP systolic 88–143; BP diastolic 61–92; PULSE 82–106; RESP 18–25; TEMP 37–37.5; O2SAT 87–100
--- NOTE | 2024-12-19 00:19 | XRR_ITS ---
PROCEDURE INFORMATION: Exam: XR Chest Exam date and time: 12/19/2024 12:37 AM Age: 69 years old Clinical indication: Wheezing; Additional info: Hypoxia TECHNIQUE: Imaging protocol: Radiologic exam of the chest. Views: 1 view. COMPARISON: CR (CHEST, ) 12/17/2024 5:04 AM FINDINGS: Tubes, catheters and devices: Support devices are unchanged. Lungs: Extensive bilateral infiltrates, much worse compared to previous study. Pleural spaces: Unremarkable. No pleural effusion. No pneumothorax. Heart/Mediastinum: Cardiomegaly has increased. Bones/joints: Unremarkable. XR/XR chest 1V portable [id number] IMPRESSION: Significantly increased cardiomegaly with increased bilateral edema versus infiltrates.
[2024-12-19] MEDS: lactulose oral liq 20 gm/30 mL UDC 40 GM PO (01:11)
[2024-12-19] MEDS: piperacillin-tazobactam 3.375 GM in sodium chloride 0.9% (plus) 50 ML IV ×3 (01:11→17:07)
[2024-12-19 01:12] LABS: Glucose Point of Care 116 mg/dL (70-110)
[2024-12-19 03:47] LABS: ABG PCO2 30.6 mmHg (35-45); ABG PH Result 7.26 (7.35-7.45); Alveolar-Arterial Oxygen Gradi 26.5 mmHg (5-10); Arterial Blood Gas Hematocrit 26.6 % (42-52); Base Excess ABG -12.2 mmol/L (-2.0-2.0); Blood Gas Allen Test Pos; Blood Gas Sample Site Radial, left; Blood Gas Sample Type Arterial; HCO3 ABG 13.7 mmol/L (22-26); HGB O2 Sat 91.7 % (95-100); Ionized Calcium Level - ABG 1.1 mmol/L (1.1-1.4); Methemoglobin 0.9 % (0.4-1.5); Oxygen Device VENT; Oxygen Saturation ABG 93.5; PO2 FiO2 Ratio Arterial Blood 177; Potassium Level - ABG 3.2 mmol/L (3.5-5.0); Total Hemoglobin 8.7 g/dL (14-18)
[2024-12-19] MEDS: fentaNYL 1,000 MCG/100 ML BAG 10 MCG IV (04:35)
[2024-12-19] MEDS: heparin 5,000 unit/mL INJ 1 mL 5000 UNIT SUBCUT ×2 (04:35→17:07)
[2024-12-19] MEDS: albumin 25 G/100 ML BAG 60 G IV ×3 (04:41→17:33)
[2024-12-19 05:43] LABS: Basophils # 0.1 10^3/uL (0.0-0.1); Basophils % 0.6 %; Eosinophils # 0.2 10^3/uL (0.0-0.8); Eosinophils % 1.6 %; Hematocrit 28.1 % (37-53); Lymphocytes # 1.1 10^3/uL (0.8-4.8); Lymphocytes % 8.7 %; Mean Corpuscular HGB Conc 29.5 g/dL (30-55); Mean Corpuscular Hemoglobin 25.2 pg (27-33); Mean Corpuscular Volume 85.4 fl (82-101); Mean Platelet Volume 12.4 fL (7.4-10.4); Monocytes # 1.2 10^3/uL (0.2-0.9); Monocytes % 9.7 %; Neutrophils # 9.62 10^3/uL (1.8-7.7); Neutrophils % 78.5 %; Nucleated Red Blood Cells % 0.2 %; Platelet Count 143 10^3/cmm (157-399); Red Blood Count 3.29 10^6/uL (3.85-5.65); White Blood Count 12.25 10^3/uL (3.29-11.43)
[2024-12-19 06:07] LABS: Alanine Aminotransferase 47 U/L (0-41); Albumin Level 3.5 g/dL (3.5-5.2); Alkaline Phosphatase 89 U/L (40-130); Anion Gap 22.2 (5-19); Aspartate Amino Transferase 28 U/L (0-40); Blood Urea Nitrogen 29 mg/dL (8-23); Calcium 7.5 mg/dL (8.5-10.5); Carbon Dioxide 14 mmol/L (22-29); Chloride 110 mmol/L (98-107); Creatinine Clr Calc Pharmacy 25.4442; Globulin 2.1 g/dL (1.3-4.6); Glomerular Filtration Rate 19.5 mL/min (90-130); Glucose 101 mg/dL (65-115); Osmolality Calculated 302 mOsm/kg (285-295); Potassium 3.2 mmol/L (3.5-5.1); Sodium 143 mmol/L (136-145); Total Bilirubin 0.5 mg/dL (0.15-1.2); Total Protein 5.6 g/dL (6.6-8.7); Vancomycin Random 24.9 ug/mL (20.0-40.0)
[2024-12-19 06:08] LABS: Magnesium 1.7 mg/dL (1.7-2.3)
[2024-12-19] MEDS: pantoprazole 40 mg SDV IVP ×2 (06:53→17:08)
[2024-12-19] MEDS: ipratropium-albuterol 3 mL Neb INHALATION ×4 (07:31→20:47)
[2024-12-19 08:00] LABS: Glucose Point of Care 106 mg/dL (70-110)
[2024-12-19] MEDS: clopidogrel 75 mg Tablet PO (08:18)
[2024-12-19] MEDS: citalopram 20 mg Tablet 10 MG PO (08:18)
[2024-12-19] MEDS: aspirin 81 mg EC Tablet PO (08:19)
[2024-12-19] MEDS: lactulose oral liq 20 gm/30 mL UDC PO (08:19)
[2024-12-19] MEDS: cetirizine 10 mg Tablet PO (08:19)
[2024-12-19] MEDS: FUROsemide 10 mg/mL SDV 10mL 80 MG IVP ×2 (08:54→17:07)
[2024-12-19] MEDS: lidocaine 1% 5 ML in potassium chloride premix 100 ML 26.25 ML IV ×3 (08:54→21:29)
[2024-12-19] MEDS: amiodarone 200 mg Tablet PO ×2 (08:54→17:08)
[2024-12-19] MEDS: sodium bicarbonate 8.4% 1 mEq/mL 50mL Syr 150 MEQ IVP (08:55)
[2024-12-19] MEDS: metOLazone 5 MG Tablet PO (08:56)
[2024-12-19] MEDS: levETIRAcetam 1,000 MG/100 ML PREMIX 400 MG IV ×2 (09:19→21:29)
[2024-12-19 11:11] LABS: Glucose Point of Care 100 mg/dL (70-110)
[2024-12-19] MEDS: propofol 1,000 MG/100 ML INJ 14.37 MG IV ×2 (12:30→20:28)
[2024-12-19] MEDS: norepinephrine 4 MG/250 ML BAG 15 MG IV (15:39)
[2024-12-19 16:20] LABS: Anion Gap 22.4 (5-19); Blood Urea Nitrogen 29 mg/dL (8-23); Calcium 7.8 mg/dL (8.5-10.5); Carbon Dioxide 16 mmol/L (22-29); Chloride 112 mmol/L (98-107); Creatinine Clr Calc Pharmacy 24.9184; Glomerular Filtration Rate 18.8 mL/min (90-130); Glucose 98 mg/dL (65-115); Osmolality Calculated 310 mOsm/kg (285-295); Potassium 3.4 mmol/L (3.5-5.1); Sodium 147 mmol/L (136-145)
--- NOTE | 2024-12-19 16:45 | P.PN_ITS ---
Subjective 2 Subjective: Overnight patient's requirements for oxygen has gone up from 35 to 45%. Otherwise has remained hemodynamically stable and afebrile with mean under pressure mostly over 65. Currently on Levophed of 8, fentanyl of 100, propofol of 20, amiodarone 0.5. Documented urine output of around 1850 in last 24 hours. Vitals/I&O/Wt Last Vital Signs Temp 98.6 F 12/19/24 04:00 Pulse 93 12/19/24 16:00 Resp 18 12/19/24 15:35 BP 96/66 12/19/24 16:00 Pulse Ox 92 12/19/24 16:00 O2 Del Method Mechanical Ventilation 12/19/24 15:35 FiO2 45 12/19/24 15:35 12/19/24 12/19/24 12/19/24 06:59 14:59 22:59 Intake Total 661.209 / 2665.412 331.989 / 331.989 Output Total 700 / 700 Balance 661.209 / 815.412 -368.011 / -368.011 Weight last 48 hrs Weight 89.811 kg Weight 87.815 kg Physical Exam 2 Narrative: General: Mechanically ventilated, sedated HEENT: PERRLA, pupils bilaterally equal and reactive Chest: Normal vesicular breath sounds, no added sounds, equal good air entry bilaterally CVS: S1-S2 regular, pansystolic murmur at apex, no tachycardia, no gallops, no rubs Abdomen: Soft, nontender, no organomegaly, bowel sounds present Neuro: Sedated Urinary Catheter Management: Lamb: Cath Placed During This Visit: yes Reason for Continuing Indwelling Catheter: Accurate Measurement of Urinary Output in Critically Ill Patients Urinary Catheter Date of Insertion: 12/15/24 Urinary Catheter Time of Insertion: 22:30 Data 12/19/24 05:08 12/19/24 15:42 Micro: Microbiology 12/15/24 19:20 Gram Stain - Final Sputum - Endotracheal Tube Aspirate Sputum Culture - Final A&P Assessment and plan (1) Cardiogenic shock: Setting of acute ST elevation ID. Troponin up to 5000's. Oxygen supplementation keeping saturation over 90%. Mean artery pressure to be maintained over 65. Currently on Levophed of 3 and vasopressin of 0.3. Will plan to wean off vasopressin. If needed will increase Levophed as per mean artery pressure. CVP to be maintained between 8-12. Start on albumin every 8 hourly. IV fluid at 100 cc/h. Low concerns for septic shock for now. Patient does have leukocytosis. Follow- up blood cultures, sputum culture, urine culture. Check MRSA swab. For now continue with IV antibiotics including vancomycin and Zosyn. If MRSA swab is negative will discontinue vancomycin. Dose antibiotics as per creatinine clearance. Check daily Vanco random levels. (2) ST elevation myocardial infarction (STEMI): Cardiology on board. Post PCI to LAD and RCA. Echocardiogram done showed EF of 20% with severely depressed LV functions, akinesia of anterior septal, apical wall, lateral wall hypokinesia, grade 1 diastolic dysfunction. Continue with aspirin Plavix, statin. Appreciate A1c, lipid panel. Is not on beta-dawson as patient is in cardiogenic shock for now. (3) Atrial fibrillation with RVR: Occasional runs of A-fib with RVR. Given concerns for cardiogenic shock being on multiple pressors for now we will start on amiodarone drip after 150 mg bolus. Will continue to monitor. Target heart rate below 100. (4) Acute kidney injury: In setting of cardiogenic shock. Strict input output charting, daily weights. Medical reconciliation done for nephrotoxic drugs. Developing hypernatremia. Monitor electrolytes every 12 hourly. (5) Hypernatremia: Along with acute kidney injury. Fluids changed to D5 NS as above. Start on free water flushes 250 cc every 4 hours. Repeat BMP in afternoon. (6) Anemia: History of iron deficiency anemia in the past. Post recent EGD and colonoscopy. Found to have esophagitis. Hemoglobin down to 8.9. Check iron panel, reticulocyte count, LDH, haptoglobin. Target hemoglobin more than 8. Continue with Protonix twice daily. (7) Leukocytosis: (8) Transaminitis: In setting of multiorgan dysfunction from cardiogenic shock. Monitor daily. (9) History of pulmonary embolism: In setting of COVID-19 before. Not on anticoagulation anymore given history of GI bleed. (10) Developmental delay, profound: (11) Guardianship: (12) Goals of care, counseling/discussion: Plan Continue home chronic medications including Keppra. Goals of care discussion: Had detailed goals of care discussion with patient's caregiver from residential at bedside. Patient has a state appointed guardian Mr. Nic Bryson. Tried calling Nic on the cell phone but not able to get in touch. As per the caregiver at bedside. Patient is dependent completely on for ADLs. He is bedbound. We discussed in detail that unfortunately there is a high chance of patient not surviving and even if he does there is a high likelihood of him having worsening quality of life than what he already has. Discussed about CODE STATUS. Discussed that unfortunately if patient has to have cardiac arrest chances of his survival and quality of life will go even poor than what they are right now. Caregivers will discuss further with patient's DPOA about goals of care and would let us know. Will try to call Mr. Nic Bryson again on the cell phone. 12/17: Was able to get in touch with Nic Bryson/state appointed guardian for Mr. Lucas. Had a detailed discussion regarding prognosis, concerns for possible arrhythmia given significant cardiomyopathy with EF of 20% in setting of cardiogenic shock and acute ID. For now the guardian would want patient to remain full code, continue with current care. Anesthesia: Propofol, fentanyl Glycemic control: Not needed, hypoglycemia protocol Nutrition: N.p.o. Free water flushes 250 cc every 4 hours CODE STATUS: Full code. PUD prophylaxis: Protonix DVT prophylaxis: Heparin 5000 every 12 hourly Gaurded prognosis Continue with care at ICU Plan for the day: Sedation medication. Plan to put back on sedation once patient is hemodynamically unstable, tachypneic or in the evening. No plan for extubation today. Developing mild fluid overload. Hold off on fluids. Blood work today shows improvement in leukocytosis, stable hemoglobin, developing mild thrombocytopenia, ABG showing metabolic acidosis with pH down to 7.26, improvement in sodium up to 143, potassium 3.2, creatinine slightly worsening to 3.2, acidosis with bicarb of 14. Wean Levophed with mean arterial pressure between 65-70. Switch from amiodarone drip to amiodarone 200 mg oral twice daily. Continue with current IV antibiotics for overall 7-day course. Leukocytosis improving. IV Lasix 80 mg one-time along with metolazone 5 mg oral daily. Patient overall on 10 L positive. Discontinue IV fluids. Sodium bicarb 150 mg one-time. Plan continue with free water flushes up to 250 cc every 4 hours. Repeat BMP in afternoon. Will plan for further Lasix and sodium bicarbonate accordingly. Replace potassium 40 mg IV one-time. If remains n.p.o. for next 24 hours we will plan to start on tube feeds. X-ray abdomen from yesterday showing fecal impaction. Plan for enema 1 time along with milk of magnesia orally. Continue with IV iron supplementation. Discharge plan: Patient lives at [facility]. Has significant developmental delay at baseline. Dependent on caregivers for ADLs at baseline. High concern for increased requirements on discharge. Patient might need PEG tube along with possible tracheostomy depending on clinical improvement. Patient will need prolonged physical therapy. Discussed in detail with patient's caregivers about possible transition to LTAC once patient is more stable. They are agreeable. Case management alerted. Will try to look into LTAC to see if patient can be transitioned once medically stable. Care discussed in detail with caregiver at bedside along with director of [facility] over the phone. All the questions were answered. This documentation was created by [employer] customer relations coordinator software. Every effort was made to ensure accuracy of customer relations coordinator. Any obvious errors or omissions should be clarified with the author of the document. Attestations 2 Medical Necessity Statement*: Requires further hospitalization for management of cardiogenic shock, respiratory failure, AKANKSHA in a patient admitted initially for acute ID post PCI with LV dysfunction down to 20%. Critical Care Time: The high probability of a clinically significant, sudden or life threatening deterioration of the patient's [cardiac, renal, pulmonary neurological] s ystem(s) required my full and direct attention, intervention and personal management. The critical care time is as shown. This time is in addition to time spent performing any reported procedures but includes the following: [x] Data and vital sign review and interpretation [x] Patient assessment, examination and intervention [x] Documentation [x] Medication orders and management Critical Care Time (min): 90 Coding Level of Care Code Critical Care >/= 30 minutes Critical care time (in minutes): 90 The high probability of a clinically significant, sudden or life threatening deterioration, as referenced in this documentation, required my full and direct attention, intervention and personal management. The critical care time shown is in addition to time spent performing any reported separately billable procedures and includes the following: [x] Data and vital sign review and interpretation [x ] Patient assessment, examination and intervention [x] Medication orders and management [x] Patient/Family updates as able [x] Care Coordination and Documentation. Other Coding Information This patient has a high probability of clinically significant, sudden or life threatening deterioration of the patient's (neurological/pulmonary/cardiac/renal/ID/endocrine) systems required my full, direct attention, the highest level of physician preparedness for urgent intervention and personal management. I managed/supervised life or organ supporting interventions that required frequent physician assessment. I devoted my full attention in the ICU to the direct care of this patient for the period of time indicated above. Time I spent with family or surrogate(s) is included only if the patient was incapable of providing necessary information or participating in decision making. This time includes the following services provided: Telemetry review Mechanical Ventilation Hemodynamic interpretation, assessment and management Review and interpretation of CXR Review and interpretation of lab values Review and interpretation of microbiologic data and culture results Review of medications and administration Review and interpretation of Nutrition requirements and management Discussion of management with other consultants and services Clinical update to family members Diagnoses Cardiogenic shock R57.0 ST elevation myocardial infarction (STEMI) I21.3 Atrial fibrillation with RVR I48.91 Acute kidney injury N17.9 Hypernatremia E87.0 Anemia D64.9 Leukocytosis D72.829 Transaminitis R74.01 History of pulmonary embolism Z86.711 Developmental delay, profound R62.50 Guardianship Goals of care, counseling/discussion Z71.89
[2024-12-19] MEDS: iron sucrose 200 MG in sodium chloride 0.9% (100 ml) 100 ML 220 MG IV (17:28)
--- NOTE | 2024-12-19 17:39 | P.PN_ITS ---
Subjective 2 Subjective: Patient appeared to be volume overloaded as evident by increasing oxygen requirement and x-ray chest. Vitals/I&O/Wt Last Vital Signs Temp 98.6 F 12/19/24 04:00 Pulse 93 12/19/24 16:00 Resp 22 H 12/19/24 17:31 BP 96/66 12/19/24 16:00 Pulse Ox 93 12/19/24 17:31 O2 Del Method Mechanical Ventilation 12/19/24 15:35 FiO2 45 12/19/24 17:31 12/19/24 12/19/24 12/19/24 06:59 14:59 22:59 Intake Total 661.209 / 2665.412 481.989 / 481.989 Output Total 700 / 700 1000 / 1700 Balance 661.209 / 815.412 -218.011 / -218.011 -1000 / -1218.011 Weight last 48 hrs Weight 198 lb Weight 193 lb 9.6 oz Physical Exam 2 Const: OTHER: GENERAL: Patient is sedated and intubated HEART: Regular S1 and S2. No murmur, rub or gallop. LUNGS: Decreased breath sounds with crackling sound bilaterally. CENTRAL NERVOUS SYSTEM: Cannot assess due to sedation EXTREMITIES: Lower extremities with out edema bilaterally. Contractures Urinary Catheter Management: Lamb: Cath Placed During This Visit: yes Reason for Continuing Indwelling Catheter: Accurate Measurement of Urinary Output in Critically Ill Patients Urinary Catheter Date of Insertion: 12/15/24 Urinary Catheter Time of Insertion: 22:30 Data 12/19/24 05:08 12/19/24 15:42 Micro: Microbiology 12/15/24 19:20 Gram Stain - Final Sputum - Endotracheal Tube Aspirate Sputum Culture - Final A&P Assessment and plan (1) ST elevation myocardial infarction (STEMI): (2) Developmental delay, profound: (3) History of pulmonary embolism: (4) Cardiogenic shock: Plan ST elevation [place] of the anterior wall Two-vessel coronary disease including mid RCA status post drug-eluting stent to proximal to mid LAD and mid RCA Severely depressed left ventricular ejection fraction by left ventriculography Cardiogenic shock secondary to ST ovation [place] History of profound mental delay l History of being bed ridden and contractures Continue pressors IV fluid challenge as patient appeared to be dry Short and long-term prognosis is guarded and not good, discussed with the caregiver, power of associate attorney is not approachable currently at this point we will continue as full code On today's visit dated 12/17/2024 patient blood pressure is somewhat improved, urine output has increased after IV fluid and diuretics, pressors are titrated downward Continue current management Continue aspirin and statin Plavix Condition guarded with short and long-term poor prognosis On today's visit dated 12/18/2024, patient remained stable hemodynamically stable on Levophed and propofol Continue current management Hopefully tomorrow if more stable we will try to wean off On today's visit 12/19/2024 patient remained stable hemodynamically but oxygen requirement has gone up with worsening of x-ray chest IV Lasix started Continue statin and Plavix and aspirin Continue rest of medications as per medicine Attestations 2 Medical Necessity Statement*: Require continuation hospitalization for above defined care. Coding Level of Care Code Acute Code for [facility] [place] Fwd Diagnoses ST elevation myocardial infarction (STEMI) I21.3 Developmental delay, profound R62.50 History of pulmonary embolism Z86.711 Cardiogenic shock R57.0
[2024-12-19 19:06] LABS: Glucose Point of Care 97 mg/dL (70-110)
[2024-12-19] MEDS: atorvastatin 40 mg Tablet 80 MG PO (21:29)
[2024-12-20] VITALS (106 sets, daily range): BP systolic 91–139; BP diastolic 32–92; PULSE 78–129; RESP 18–27; TEMP 37.2; O2SAT 87–100
[2024-12-20] MEDS: piperacillin-tazobactam 3.375 GM in sodium chloride 0.9% (plus) 50 ML IV ×3 (01:47→17:38)
[2024-12-20 01:48] LABS: Glucose Point of Care 82 mg/dL (70-110)
[2024-12-20] MEDS: albumin 25 G/100 ML BAG 60 G IV (03:37)
[2024-12-20] MEDS: propofol 1,000 MG/100 ML INJ 9.58 MG IV ×2 (04:27→16:16)
[2024-12-20 05:11] LABS: ABG PCO2 26.8 mmHg (35-45); ABG PH Result 7.38 (7.35-7.45); Alveolar-Arterial Oxygen Gradi 28.7 mmHg (5-10); Arterial Blood Gas Hematocrit 24.7 % (42-52); Base Excess ABG -8.5 mmol/L (-2.0-2.0); Blood Gas Allen Test Pos; Blood Gas Operator Identificat SAM; Blood Gas Sample Site Radial, left; Blood Gas Sample Type Arterial; HCO3 ABG 15.7 mmol/L (22-26); HGB O2 Sat 90.7 % (95-100); Ionized Calcium Level - ABG 1.1 mmol/L (1.1-1.4); Methemoglobin 1.6 % (0.4-1.5); Oxygen Device VENT; Oxygen Saturation ABG 93.1; PO2 ABG 68.5 mmHg (80.0-100.0); PO2 FiO2 Ratio Arterial Blood 152; Potassium Level - ABG 3.9 mmol/L (3.5-5.0); Total Hemoglobin 8.1 g/dL (14-18)
[2024-12-20] MEDS: heparin 5,000 unit/mL INJ 1 mL 5000 UNIT SUBCUT (05:11)
[2024-12-20] MEDS: pantoprazole 40 mg SDV IVP ×2 (05:11→17:39)
[2024-12-20 05:19] LABS: Glucose Point of Care 77 mg/dL (70-110)
[2024-12-20 05:26] LABS: Basophils # 0.1 10^3/uL (0.0-0.1); Basophils % 0.8 %; Eosinophils # 0.3 10^3/uL (0.0-0.8); Eosinophils % 4.3 %; Hematocrit 25.6 % (37-53); Lymphocytes # 0.6 10^3/uL (0.8-4.8); Lymphocytes % 7.6 %; Mean Corpuscular HGB Conc 30.1 g/dL (30-55); Mean Corpuscular Hemoglobin 25.2 pg (27-33); Mean Corpuscular Volume 83.7 fl (82-101); Mean Platelet Volume 12.9 fL (7.4-10.4); Monocytes # 0.7 10^3/uL (0.2-0.9); Monocytes % 8.7 %; Neutrophils # 6.17 10^3/uL (1.8-7.7); Neutrophils % 77.7 %; Nucleated Red Blood Cells % 0.5 %; Platelet Count 115 10^3/cmm (157-399); Red Blood Count 3.06 10^6/uL (3.85-5.65); Red Cell Distribution Width 18.1 % (12.1-15.1); White Blood Count 7.93 10^3/uL (3.29-11.43)
[2024-12-20 05:48] LABS: Alanine Aminotransferase 35 U/L (0-41); Albumin Level 3.7 g/dL (3.5-5.2); Alkaline Phosphatase 78 U/L (40-130); Aspartate Amino Transferase 23 U/L (0-40); Blood Urea Nitrogen 33 mg/dL (8-23); Calcium 8.3 mg/dL (8.5-10.5); Carbon Dioxide 14 mmol/L (22-29); Chloride 109 mmol/L (98-107); Creatinine Clr Calc Pharmacy 22.8419; Globulin 2.2 g/dL (1.3-4.6); Glucose 75 mg/dL (65-115); Osmolality Calculated 306 mOsm/kg (285-295); Sodium 145 mmol/L (136-145); Total Bilirubin 0.6 mg/dL (0.15-1.2); Total Protein 5.9 g/dL (6.6-8.7)
[2024-12-20 05:49] LABS: Magnesium 1.8 mg/dL (1.7-2.3)
[2024-12-20 05:56] LABS: Anion Gap 26.2 (5-19); Potassium 4.2 mmol/L (3.5-5.1)
[2024-12-20] MEDS: ipratropium-albuterol 3 mL Neb INHALATION ×3 (07:35→20:02)
[2024-12-20] MEDS: aspirin 81 mg EC Tablet PO (08:01)
[2024-12-20] MEDS: lactulose oral liq 20 gm/30 mL UDC PO (08:01)
[2024-12-20] MEDS: clopidogrel 75 mg Tablet PO (08:01)
[2024-12-20] MEDS: citalopram 20 mg Tablet 10 MG PO (08:01)
[2024-12-20] MEDS: amiodarone 200 mg Tablet PO ×2 (08:01→17:39)
--- NOTE | 2024-12-20 08:38 | XR_ITS ---
WS: [id number] Portable AP semiupright chest, 12/20/2024 Clinical Data: intubated Comparison: Portable chest, 12/19/2024 Findings: The endotracheal tube, nasogastric tube, right internal jugular venous catheter and monitor leads remain in the same position. There are diffuse bilateral pulmonary opacities with bilateral pl eural effusions. The heart is enlarged. No pneumothorax is seen. XR/XR chest 1V portable [id number] Impression: 1. No change in position of multiple tubes. 2. No change in bilateral pulmonary opacities and cardiomegaly.
[2024-12-20] MEDS: FUROsemide 10 mg/mL SDV 10mL 100 MG IVP (08:56)
--- NOTE | 2024-12-20 09:11 | XR_ITS ---
WS: [id number] KUB, AP supine portable, 12/20/2024 Clinical Data: Ileus Comparison: KUB, 12/18/2024 Findings: No abnormal intraabdominal masses or calcifications are seen. There is no dilatated small bowel or ev idence of obstruction. The colon remains dilated but the fecal impaction has passed. Osteoarthritis of both hips is present. XR/XR KUB portable [id number] Impression: 1. Decrease in colonic ileus. 2. Fecal impaction no longer present.
[2024-12-20] MEDS: levETIRAcetam 1,000 MG/100 ML PREMIX 400 MG IV ×2 (09:12→22:41)
[2024-12-20 11:24] LABS: Glucose Point of Care 89 mg/dL (70-110)
--- NOTE | 2024-12-20 13:33 | PM.PN ---
Subjective Subjective: No acute events overnight. Examination today patient laying comfortably in bed. Intubated. Sedated. Has remained hemodynamically stable. Levophed was weaned off overnight but today morning had to be restarted at 2. Currently on FiO2 45%, tidal volume 500 PEEP of 8, currently on propofol of 20, fentanyl of 100 Vitals/I&O/Wt Last Vital Signs Temp 99.0 F 12/20/24 08:30 Pulse 88 12/20/24 12:00 Resp 24 H 12/20/24 11:06 BP 93/65 12/20/24 12:00 Pulse Ox 94 12/20/24 12:00 O2 Del Method Mechanical Ventilation 12/20/24 11:06 FiO2 45 12/20/24 11:02 12/19/24 12/20/24 12/20/24 22:59 06:59 14:59 Intake Total 1293.752 / 8952.447 9917.217 / 4172.958 Output Total 1000 / 1700 2200 / 3900 1600 / 1600 Balance 293.752 / 75.741 197.217 / 272.958 -1600 / -1600 Weight last 48 hrs Weight 87.725 kg Weight 89.811 kg Physical Exam Narrative: General: Mechanically ventilated, sedated HEENT: PERRLA, pupils bilaterally equal and reactive Chest: Normal vesicular breath sounds, no added sounds, equal good air entry bilaterally CVS: S1-S2 regular, pansystolic murmur at apex, no tachycardia, no gallops, no rubs Abdomen: Soft, nontender, no organomegaly, bowel sounds present Neuro: Sedated Urinary Catheter Management: Lamb: Cath Placed During This Visit: yes Reason for Continuing Indwelling Catheter: Accurate Measurement of Urinary Output in Critically Ill Patients Urinary Catheter Date of Insertion: 12/15/24 Urinary Catheter Time of Insertion: 22:30 Data 12/20/24 04:51 12/20/24 04:51 A&P Assessment and plan (1) Cardiogenic shock: Setting of acute ST elevation MT. Troponin up to 5000's. Oxygen supplementation keeping saturation over 90%. Mean artery pressure to be maintained over 65. Currently on Levophed of 3 and vasopressin of 0.3. Will plan to wean off vasopressin. If needed will increase Levophed as per mean artery pressure. CVP to be maintained between 8-12. Start on albumin every 8 hourly. IV fluid at 100 cc/h. Low concerns for septic shock for now. Patient does have leukocytosis. Follow-up blood cultures, sputum culture, urine culture. Check MRSA swab. For now continue with IV antibiotics including vancomycin and Zosyn. If MRSA swab is negative will discontinue vancomycin. Dose antibiotics as per creatinine clearance. Check daily Vanco random levels. (2) ST elevation myocardial infarction (STEMI): Cardiology on board. Post PCI to LAD and RCA. Echocardiogram done showed EF of 20% with severely depressed LV functions, akinesia of anterior septal, apical wall, lateral wall hypokinesia, grade 1 diastolic dysfunction. Continue with aspirin Plavix, statin. Appreciate A1c, lipid panel. Is not on beta-dawson as patient is in cardiogenic shock for now. (3) Atrial fibrillation with RVR: Occasional runs of A-fib with RVR. Given concerns for cardiogenic shock being on multiple pressors for now we will start on amiodarone drip after 150 mg bolus. Will continue to monitor. Target heart rate below 100. (4) Acute kidney injury: In setting of cardiogenic shock. Strict input output charting, daily weights. Medical reconciliation done for nephrotoxic drugs. Developing hypernatremia. Monitor electrolytes every 12 hourly. (5) Hypernatremia: Along with acute kidney injury. Fluids changed to D5 NS as above. Start on free water flushes 250 cc every 4 hours. Repeat BMP in afternoon. (6) Anemia: History of iron deficiency anemia in the past. Post recent EGD and colonoscopy. Found to have esophagitis. Hemoglobin down to 8.9. Check iron panel, reticulocyte count, LDH, haptoglobin. Target hemoglobin more than 8. Continue with Protonix twice daily. (7) Leukocytosis: (8) Transaminitis: In setting of multiorgan dysfunction from cardiogenic shock. Monitor daily. (9) History of pulmonary embolism: In setting of COVID-19 before. Not on anticoagulation anymore given history of GI bleed. (10) Developmental delay, profound: (11) Guardianship: (12) Goals of care, counseling/discussion: Plan Continue home chronic medications including Keppra. Goals of care discussion: Had detailed goals of care discussion with patient's caregiver from senior living at bedside. Patient has a state appointed guardian Mr. Nic Bryson. Tried calling Nic on the cell phone but not able to get in touch. As per the caregiver at bedside. Patient is dependent completely on for ADLs. He is bedbound. We discussed in detail that unfortunately there is a high chance of patient not surviving and even if he does there is a high likelihood of him having worsening quality of life than what he already has. Discussed about CODE STATUS. Discussed that unfortunately if patient has to have cardiac arrest chances of his survival and quality of life will go even poor than what they are right now. Caregivers will discuss further with patient's DPOA about goals of care and would let us know. Will try to call Mr. Nic Bryson again on the cell phone. 12/17: Was able to get in touch with Nic Duronp/state appointed guardian for Mr. Lucas. Had a detailed discussion regarding prognosis, concerns for possible arrhythmia given significant cardiomyopathy with EF of 20% in setting of cardiogenic shock and acute MT. For now the guardian would want patient to remain full code, continue with current care. Anesthesia: Propofol, fentanyl Glycemic control: Not needed, hypoglycemia protocol Nutrition: Start on tube feeds with Nepro 10 cc every hour, increase 10 cc every 4 hours with goal of 50 cc/h. Dietary consultation. Free water flushes 250 cc every 6 hours CODE STATUS: Full code. PUD prophylaxis: Protonix DVT prophylaxis: SCDs. Hemoglobin trending down hold off on heparin for now. Gaurded prognosis Continue with care at ICU Plan for the day: Blood work today shows resolution of leukocytosis, hemoglobin down to 7.7, platelet of 1 than 15, ABG showing normal pH with pCO2 of 26, pO2 of 68, BMP showing bicarb of 14, creatinine of 3.6 with BUN of 33, sodium 145 Plan for sedation vacation in AM. Having thicker secretions today. Chest x-ray. Concern for fluid overload. Appreciate ABG. Wean Levophed keeping mean artery pressure 65. Monitor CVP. Hold off on albumin. Continue with IV antibiotics for overall 5 to 7 days. Monitor vancomycin random levels. Will plan to decrease IV fluid intake today if possible. IV Lasix 100 mg one-time. Repeat BMP in afternoon. Depending on the BMP will plan for further Lasix during the day versus Lasix drip. Start on feeding tube with Nepro 10 cc followed by 10 cc increase every 4 hour with a goal of 50. Free water flushes to 50 cc every 6 hour. X-ray KUB. Patient did receive enema earlier today morning. Depending on the same will plan for lactulose and milk of magnesia. Target hemoglobin more than 8. Repeat CBC in AM. No active bleeding for now. Transfuse accordingly. Continue Protonix 40 mg twice daily. Hold off on heparin for now. SCDs for DVT prophylaxis Discharge plan: Patient lives at [facility]. Has significant developmental delay at baseline. Dependent on caregivers for ADLs at baseline. High concern for increased requirements on discharge. Patient might need PEG tube along with possible tracheostomy depending on clinical improvement. Patient will need prolonged physical therapy. Discussed in detail with patient's caregivers about possible transition to LTAC once patient is more stable. They are agreeable. Case management alerted. Patient has been accepted to LTAC. Awaiting authorization. Care discussed in detail with caregiver at bedside along with director of [facility] over the phone. All the questions were answered. This documentation was created by [employer] soft mud molder software. Every effort was made to ensure accuracy of soft mud molder. Any obvious errors or omissions should be clarified with the author of the document. Attestations Medical Necessity Statement*: Requires further hospitalization for management of cardiogenic shock, congestive heart failure in a patient For acute STEMI, LV dysfunction, AKANKSHA, respiratory failure as patient remains on mechanical ventilator Critical Care Time: The high probability of a clinically significant, sudden or life threatening deterioration of the patient's [Cardiac, renal, pulmonary] system(s) required my full and direct attention, intervention and personal management. The critical care time is as shown. This time is in addition to time spent performing any reported procedures but includes the following: [x] Data and vital sign review and interpretation [x] Patient assessment, examination and intervention [x] Documentation [x] Medication orders and management Critical Care Time (min): 90 Coding Level of Care Code Critical Care >/= 30 minutes Critical care time (in minutes): 90 The high probability of a clinically significant, sudden or life threatening deterioration, as referenced in this documentation, required my full and direct attention, intervention and personal management. The critical care time shown is in addition to time spent performing any reported separately billable procedures and includes the following: [x] Data and vital sign review and interpretation [x] Patient assessment, examination and intervention [x] Medication orders and management [x] Patient/Family updates as able [x] Care Coordination and Documentation. Diagnoses Cardiogenic shock R57.0 ST elevation myocardial infarction (STEMI) I21.3 Atrial fibrillation with RVR I48.91 Acute kidney injury N17.9 Hypernatremia E87.0 Anemia D64.9 Leukocytosis D72.829 Transaminitis R74.01 History of pulmonary embolism Z86.711 Developmental delay, profound R62.50 Guardianship Goals of care, counseling/discussion Z71.89
[2024-12-20] MEDS: fentaNYL 1,000 MCG/100 ML BAG 2.5 MCG IV (14:14)
--- NOTE | 2024-12-20 14:15 | PC.NUTR ---
Received consult for TF recommendations. MD orders: Nepro 1.8 begin @10 mls/hr, increase 10mls Q4H, with goal rate of 50mls/hr and FWF 250mls Q6H. Recommend consideration of Nepro 1.8 beginning @15mls/hr, increasing 10mls as tolerated Q4-8hrs until goal rate of 35mls/hr is reached with FWF of 120mls Q4H or per MD discretion. Details in RD assessment.
[2024-12-20 16:36] LABS: Anion Gap 26.8 (5-19); Blood Urea Nitrogen 34 mg/dL (8-23); Calcium 8.3 mg/dL (8.5-10.5); Carbon Dioxide 14 mmol/L (22-29); Chloride 108 mmol/L (98-107); Creatinine Clr Calc Pharmacy 20.3462; Glomerular Filtration Rate 15.1 mL/min (90-130); Glucose 77 mg/dL (65-115); Osmolality Calculated 306 mOsm/kg (285-295); Potassium 3.8 mmol/L (3.5-5.1); Sodium 145 mmol/L (136-145)
--- NOTE | 2024-12-20 16:42 | P.PN_ITS ---
<Statement entered by Anuel Freitas M.D - 12/20/24 21:17> Patient was evaluated and cared for in conjunction with an advanced practice practitioner. I personally examined the patient and reviewed the chart and all pertinent data including imaging, telemetry, and laboratory results. I discussed the patient in detail with the advanced practice practitioner. Please see their note for complete progress note, results and agreed upon plan of care for the patient. Patient is intubated and sedated GENERAL: Patient is intubated and sedated HEART: Regular S1 and S2 LUNGS: Diminished air entry bilaterally EXTREMITIES: Lower extremities with 1+ edema Subjective 2 Subjective: Patient seen this morning. No significant changes overnight. He is intubated, ventilated and sedated. Still on Levophed 2 mcg/minute and propofol infusions. He received a dose of Lasix this morning, as he was volume overloaded. Creatinine 3.6, slowly increasing, baseline was 1.0. FiO2 45%. Vitals/I&O/Wt Last Vital Signs Temp 99.0 F 12/20/24 08:30 Pulse 83 12/20/24 15:37 Resp 18 12/20/24 15:36 BP 110/71 12/20/24 14:45 Pulse Ox 94 12/20/24 15:36 O2 Del Method Mechanical Ventilation 12/20/24 15:36 FiO2 40 12/20/24 15:36 12/20/24 12/20/24 12/20/24 06:59 14:59 22:59 Intake Total 2397.217 / 4172.958 100 / 100 Output Total 2200 / 3900 1600 / 1600 Balance 197.217 / 272.958 -1500 / -1500 Weight last 48 hrs Weight 193 lb 6.4 oz Weight 198 lb Physical Exam 2 Const: EXAM LIMITATIONS: physical limitations (Intubated and sedated) G ENERAL APPEARANCE: patient mechanically ventilated Resp: COMMON NORMALS: clear to auscultation bilaterally AUSCULTATION: clear to auscultation bilaterally Cardio: COMMON NORMALS: regular rhythm, S1 normal heart sound present and S2 normal heart sound present RHYTHM: regular rhythm HEART SOUNDS: S1 normal heart sound present and S2 normal heart sound present Extremity: GENERAL: No edema Urinary Catheter Management: Lamb: Cath Placed During This Visit: yes Reason for Continuing Indwelling Catheter: Accurate Measurement of Urinary Output in Critically Ill Patients Urinary Catheter Date of Insertion: 12/15/24 Urinary Catheter Time of Insertion: 22:30 Data 12/20/24 04:51 12/20/24 15:42 A&P Assessment and plan (1) ST elevation myocardial infarction (STEMI): (2) Developmental delay, profound: (3) History of pulmonary embolism: (4) Cardiogenic shock: Plan ST elevation IL of the anterior wall Two-vessel coronary disease including mid RCA status post drug-eluting stent to proximal to mid LAD and mid RCA Severely depressed left ventricular ejection fraction by left ventriculography Cardiogenic shock secondary to ST ovation IL History of profound mental delay l History of being bed ridden and contractures Continue pressors IV fluid challenge as patient appeared to be dry Short and long-term prognosis is guarded and not good, discussed with the caregiver, power of trial attorney is not approachable currently at this point we will continue as full code On today's visit dated 12/17/2024 patient blood pressure is somewhat improved, urine output has increased after IV fluid and diuretics, pressors are titrated downward Continue current management Continue aspirin and statin Plavix Condition guarded with short and long-term poor prognosis On today's visit dated 12/18/2024, patient remained stable hemodynamically stable on Levophed and propofol Continue current management Hopefully tomorrow if more stable we will try to wean off On today's visit 12/19/2024 patient remained stable hemodynamically but oxygen requirement has gone up with worsening of x-ray chest IV Lasix started Continue statin and Plavix and aspirin Continue rest of medications as per medicine 12/20/2024 No significant changes from yesterday. Received Lasix today. Continue statin, Plavix, aspirin. Appreciate hospitalist management. Attestations 2 Medical Necessity Statement*: Per hospitalist for STEMI, cardiogenic shock Coding Level of Care Code Acute Code for [facility] Fwd Diagnoses ST elevation myocardial infarction (STEMI) I21.3 Developmental delay, profound R62.50 History of pulmonary embolism Z86.711 Cardiogenic shock R57.0
--- NOTE | 2024-12-20 17:25 | PC.NURSE ---
received t.o. for fixed rate lasix drip of 10 mg/hr, fixed rate not in order library critical care message to nurse put in
[2024-12-20] MEDS: iron sucrose 200 MG in sodium chloride 0.9% (100 ml) 100 ML 220 MG IV (17:49)
[2024-12-20] MEDS: FUROsemide 200 MG in sodium chloride 0.9% (100 ml) 80 ML IV (18:15)
[2024-12-20] MEDS: atorvastatin 40 mg Tablet 80 MG PO (20:35)
[2024-12-21] VITALS (72 sets, daily range): BP systolic 76–117; BP diastolic 49–79; PULSE 85–139; RESP 15–22; TEMP 36.6–37.1; O2SAT 90–96
[2024-12-21 01:10] LABS: Glucose Point of Care 90 mg/dL (70-110)
--- NOTE | 2024-12-21 01:43 | ECG_ITS ---
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 Measurements Intervals Lucas Rate: 126 P: 0 CO: 0 QRS: 51 QRSD: 102 T: 72 QT: 309 QTc: 447 Interpretive Statements ATRIAL FLUTTER WITH RAPID VENTRICULAR RESPONSE LOW QRS VOLTAGE [QRS DEFLECTION < 0.5/1.0 mV IN LIMB/CHEST LEADS] ANTEROSEPTAL MYOCARDIAL INFARCTION , POSSIBLY ACUTE [40+ ms Q WAVE IN V1-V4] MARKED ST ELEVATION, CONSIDER LATERAL INJURY [MARKED ST ELEVATION W/O NORMALLY INFLECTED T-WAVE IN I/aVL/V5/V6] ACUTE AK Compared to ECG 12/17/2024 10:10:58 No significant changes Electronically Signed On 12-21-2024 23:25:15 [employer] PROFESS[employer] by Anuel Freitas M.D. [id number]
[2024-12-21] MEDS: propofol 1,000 MG/100 ML INJ 14.37 MG IV ×3 (02:28→15:28)
[2024-12-21] MEDS: amiodarone 150 MG/100 ML PREMIX 400 MG IV (03:25)
[2024-12-21 03:33] LABS: Ionized Calcium 1.1 mmol/L (1.1-1.4)
--- NOTE | 2024-12-21 03:58 | PC.NURSE ---
Afib RVR: At 0108 patient went from sinus rhythm to Afib RVR, EKG obtained and Dr. Hernandez notified. Orders recieved for amiodarone drip with loading bolus and obtain am labs now and add on phosphorus and ionized calcium. Shortly after starting the amiodarone bolus, patient converted back into sinus rhythm. Dr. Hernandez said to finish the bolus but do not start the maintenance drip.
[2024-12-21 04:04] LABS: Basophils # 0.1 10^3/uL (0.0-0.1); Basophils % 0.6 %; Eosinophils # 0.4 10^3/uL (0.0-0.8); Hematocrit 28.3 % (37-53); Lymphocytes # 0.6 10^3/uL (0.8-4.8); Lymphocytes % 5.9 %; Mean Corpuscular HGB Conc 31.1 g/dL (30-55); Mean Corpuscular Hemoglobin 25.9 pg (27-33); Mean Corpuscular Volume 83.2 fl (82-101); Monocytes # 0.8 10^3/uL (0.2-0.9); Monocytes % 7.4 %; Neutrophils # 8.68 10^3/uL (1.8-7.7); Neutrophils % 81.3 %; Nucleated Red Blood Cells % 0.2 %; Platelet Count 179 10^3/cmm (157-399); White Blood Count 10.68 10^3/uL (3.29-11.43)
[2024-12-21] MEDS: piperacillin-tazobactam 3.375 GM in sodium chloride 0.9% (plus) 50 ML IV ×2 (04:12→15:28)
[2024-12-21 04:19] LABS: Alanine Aminotransferase 31 U/L (0-41); Albumin Level 3.5 g/dL (3.5-5.2); Alkaline Phosphatase 95 U/L (40-130); Anion Gap 27.5 (5-19); Aspartate Amino Transferase 17 U/L (0-40); Blood Urea Nitrogen 35 mg/dL (8-23); Calcium 8.2 mg/dL (8.5-10.5); Carbon Dioxide 15 mmol/L (22-29); Chloride 103 mmol/L (98-107); Glomerular Filtration Rate 14.6 mL/min (90-130); Glucose 82 mg/dL (65-115); Osmolality Calculated 301 mOsm/kg (285-295); Phosphorus 4.6 mg/dL (2.5-4.5); Potassium 3.5 mmol/L (3.5-5.1); Sodium 142 mmol/L (136-145); Total Bilirubin 0.5 mg/dL (0.15-1.2); Total Protein 5.5 g/dL (6.6-8.7)
[2024-12-21 04:22] LABS: Magnesium 1.9 mg/dL (1.7-2.3)
[2024-12-21] MEDS: pantoprazole 40 mg SDV IVP ×2 (05:26→16:59)
[2024-12-21 05:45] LABS: Glucose Point of Care 141 mg/dL (70-110)
[2024-12-21] MEDS: ipratropium-albuterol 3 mL Neb INHALATION ×4 (08:00→20:28)
[2024-12-21] MEDS: lactulose oral liq 20 gm/30 mL UDC PO (08:36)
[2024-12-21] MEDS: citalopram 20 mg Tablet 10 MG PO (08:36)
[2024-12-21] MEDS: aspirin 81 mg EC Tablet PO (08:36)
[2024-12-21] MEDS: clopidogrel 75 mg Tablet PO (08:36)
[2024-12-21] MEDS: amiodarone 200 mg Tablet PO ×2 (08:36→11:13)
--- NOTE | 2024-12-21 10:25 | P.PN_ITS ---
Subjective 2 Subjective: No change in patient's overall condition. Intubated and sedated. Has been diuresing well. Creatinine worsening. Vitals/I&O/Wt Last Vital Signs Temp 97.9 F 12/21/24 07:45 Pulse 92 12/21/24 08:09 Resp 20 H 12/21/24 08:00 BP 101/72 12/21/24 07:45 Pulse Ox 95 12/21/24 08:00 O2 Del Method Mechanical Ventilation 12/21/24 08:00 FiO2 40 12/21/24 08:00 12/20/24 12/21/24 12/21/24 22:59 06:59 14:59 Intake Total 909.043 / 1009.043 533.957 / 1543.000 137.897 / 137.897 Output Total 1350 / 2950 1999 / 4950 Balance -440.957 / -1940.957 -1466.043 / -3407.000 137.897 / 137.897 Weight last 48 hrs Weight 189 lb Weight 193 lb 6.4 oz Physical Exam 2 Const: OTHER: GENERAL: Patient is sedated and intubated HEART: Regular S1 and S2. No murmur, rub or gallop. LUNGS: Decreased breath sounds CENTRAL NERVOUS SYSTEM: Cannot assess due to sedation EXTREMITIES: Lower extremities with out edema bilaterally. Contractures Urinary Catheter Management: Lamb: Cath Placed During This Visit: yes Reason for Continuing Indwelling Catheter: Accurate Measurement of Urinary Output in Critically Ill Patients Urinary Catheter Date of Insertion: 12/15/24 Urinary Catheter Time of Insertion: 22:30 Data 12/21/24 03:20 12/21/24 03:20 Micro: Microbiology 12/15/24 18:15 Blood Culture - Final Blood NO GROWTH AFTER 5 DAYS 12/15/24 18:18 Blood Culture - Final Blood NO GROWTH AFTER 5 DAYS A&P Assessment and plan (1) ST elevation myocardial infarction (STEMI): (2) Developmental delay, profound: (3) History of pulmonary embolism: (4) Cardiogenic shock: Plan Patient's overall condition is unchanged.Diuresing well. Continue dual antiplatelet therapy with aspirin and plavix Monitor renal function Attestations 2 Medical Necessity Statement*: Care expected to cross 2 midnights. Coding Level of Care Code Acute Code for [facility] Diagnoses ST elevation myocardial infarction (STEMI) I21.3 Developmental delay, profound R62.50 History of pulmonary embolism Z86.711 Cardiogenic shock R57.0
--- NOTE | 2024-12-21 10:51 | XRR_ITS ---
PROCEDURE INFORMATION: Exam: XR Chest Exam date and time: 12/21/2024 12:18 PM Age: 69 years old Clinical indication: Device placement; Patient HX: Increased vent requirement TECHNIQUE: Imaging protocol: Radiologic exam of the chest. Views: 1 view. COMPARISON: 1. CT abdomen pelvis w con* [id number] 05/02/2023 1:23 PM 2. CR XR chest 1V portable [id number] 12/20/2024 9:18 AM FINDINGS: Tubes, catheters and devices: Endotracheal tube with tip 4.7 cm from the love. Enteric tube with side port at the projected lower esophageal junction but likely terminates within the previously described large hiatal hernia. Lungs: Mildly improved aeration of the left upper lung field. Otherwise grossly similar appearance of dense retrocardiac and right lower lobe opacification and patchy opacities throughout the bilateral lung shell. Pleural spaces: No pleural effusion. No pneumothorax. Heart/Mediastinum: Cardiomegaly. Bones/joints: No acute osseous abnormality. XR/XR chest 1V portable [id number] IMPRESSION: 1. Stable tubes. 2. Grossly stable pulmonary exam with mild interval improved aeration of the left upper lung field.
[2024-12-21] MEDS: levETIRAcetam 1,000 MG/100 ML PREMIX 400 MG IV ×2 (11:13→21:43)
[2024-12-21 11:16] LABS: Blood Gas Allen Test Pos; Blood Gas Operator Identificat BROMA; Blood Gas Sample Type Arterial; Carboxyhemoglobin 1.1 %THgb (0.4-20.1); Ionized Calcium Level - ABG 1.2 mmol/L (1.1-1.4)
[2024-12-21 11:30] LABS: ABG PCO2 27.4 mmHg (35-45); ABG PH Result 7.43 (7.35-7.45); Arterial Blood Gas Hematocrit 29.5 % (42-52); Base Excess ABG -5.2 mmol/L (-2.0-2.0); Blood Gas Sample Site Radial, right; HCO3 ABG 18.1 mmol/L (22-26); HGB O2 Sat 92.8 % (95-100); Methemoglobin 1.5 % (0.4-1.5); Oxygen Device VENT; Oxygen Saturation ABG 95.2; PO2 ABG 74.5 mmHg (80.0-100.0); PO2 FiO2 Ratio Arterial Blood 186; Potassium Level - ABG 3.2 mmol/L (3.5-5.0); Total Hemoglobin 9.6 g/dL (14-18)
[2024-12-21 11:55] LABS: Vancomycin Random 23.4 ug/mL (20.0-40.0)
[2024-12-21 12:35] LABS: Glucose Point of Care 178 mg/dL (70-110)
[2024-12-21] MEDS: FUROsemide 200 MG in sodium chloride 0.9% (100 ml) 80 ML IV (14:05)
[2024-12-21 15:30] LABS: Anion Gap 22.2 (5-19); Blood Urea Nitrogen 38 mg/dL (8-23); Calcium 8.4 mg/dL (8.5-10.5); Carbon Dioxide 17 mmol/L (22-29); Chloride 107 mmol/L (98-107); Creatinine Clr Calc Pharmacy 19.6525; Glomerular Filtration Rate 14.6 mL/min (90-130); Glucose 151 mg/dL (65-115); Osmolality Calculated 308 mOsm/kg (285-295); Potassium 3.2 mmol/L (3.5-5.1); Sodium 143 mmol/L (136-145)
--- NOTE | 2024-12-21 16:52 | PM.PN ---
Subjective Subjective: Overnight patient had 1 episode of A-fib with RVR for which he was given 150 mg of IV amiodarone bolus. Today morning on examination laying comfortably in bed, intubated. Mean artery pressure being maintained over 65. CVP at 5. Appreciate urine output in last 24 hours. Currently patient is sedated with fentanyl and propofol. Lasix drip running at 10 mg/h. Vitals/I&O/Wt Last Vital Signs Temp 97.9 F 12/21/24 07:45 Pulse 99 12/21/24 16:00 Resp 18 12/21/24 15:09 BP 84/58 12/21/24 16:00 Pulse Ox 94 12/21/24 16:00 O2 Del Method Mechanical Ventilation 12/21/24 15:09 FiO2 40 12/21/24 15:09 12/21/24 12/21/24 12/21/24 06:59 14:59 22:59 Intake Total 533.957 / 1543.000 329.605 / 329.605 104.705 / 434.310 Output Total 2000 / 4950 1000 / 1000 500 / 1500 Balance -1466.043 / -3407.000 -670.395 / -670.395 -395.295 / -1065.690 Weight last 48 hrs Weight 85.729 kg Weight 87.725 kg Physical Exam Narrative: General: Mechanically ventilated, sedated HEENT: PERRLA, pupils bilaterally equal and reactive Chest: Normal vesicular breath sounds, no added sounds, equal good air entry bilaterally CVS: S1-S2 regular, pansystolic murmur at apex, no tachycardia, no gallops, no rubs Abdomen: Soft, nontender, no organomegaly, bowel sounds present Neuro: Sedated Urinary Catheter Management: Lamb: Cath Placed During This Visit: yes Reason for Continuing Indwelling Catheter: Accurate Measurement of Urinary Output in Critically Ill Patients Urinary Catheter Date of Insertion: 12/15/24 Urinary Catheter Time of Insertion: 22:30 Data 12/21/24 03:20 12/21/24 15:04 Micro: Microbiology 12/15/24 18:15 Blood Culture - Final Blood NO GROWTH AFTER 5 DAYS 12/15/24 18:18 Blood Culture - Final Blood NO GROWTH AFTER 5 DAYS A&P Assessment and plan (1) Cardiogenic shock: Setting of acute ST elevation HI. Troponin up to 5000's. Oxygen supplementation keeping saturation over 90%. Mean artery pressure to be maintained over 65. Currently on Levophed of 3 and vasopressin of 0.3. Will plan to wean off vasopressin. If needed will increase Levophed as per mean artery pressure. CVP to be maintained between 8-12. Start on albumin every 8 hourly. IV fluid at 100 cc/h. Low concerns for septic shock for now. Patient does have leukocytosis. Follow-up blood cultures, sputum culture, urine culture. Check MRSA swab. For now continue with IV antibiotics including vancomycin and Zosyn. If MRSA swab is negative will discontinue vancomycin. Dose antibiotics as per creatinine clearance. Check daily Vanco random levels. (2) ST elevation myocardial infarction (STEMI): Cardiology on board. Post PCI to LAD and RCA. Echocardiogram done showed EF of 20% with severely depressed LV functions, akinesia of anterior septal, apical wall, lateral wall hypokinesia, grade 1 diastolic dysfunction. Continue with aspirin Plavix, statin. Appreciate A1c, lipid panel. Is not on beta-dawson as patient is in cardiogenic shock for now. (3) Atrial fibrillation with RVR: Occasional runs of A-fib with RVR. Given concerns for cardiogenic shock being on multiple pressors for now we will start on amiodarone drip after 150 mg bolus. Will continue to monitor. Target heart rate below 100. (4) Acute kidney injury: In setting of cardiogenic shock. Strict input output charting, daily weights. Medical reconciliation done for nephrotoxic drugs. Developing hypernatremia. Monitor electrolytes every 12 hourly. (5) Hypernatremia: Along with acute kidney injury. Fluids changed to D5 NS as above. Start on free water flushes 250 cc every 4 hours. Repeat BMP in afternoon. (6) Anemia: History of iron deficiency anemia in the past. Post recent EGD and colonoscopy. Found to have esophagitis. Hemoglobin down to 8.9. Check iron panel, reticulocyte count, LDH, haptoglobin. Target hemoglobin more than 8. Continue with Protonix twice daily. (7) Leukocytosis: (8) Transaminitis: In setting of multiorgan dysfunction from cardiogenic shock. Monitor daily. (9) History of pulmonary embolism: In setting of COVID-19 before. Not on anticoagulation anymore given history of GI bleed. (10) Developmental delay, profound: (11) Guardianship: (12) Goals of care, counseling/discussion: Plan Continue home chronic medications including Keppra. Goals of care discussion: Had detailed goals of care discussion with patient's caregiver from long term at bedside. Patient has a state appointed guardian Mr. Nic Bryson. Tried calling Nic on the cell phone but not able to get in touch. As per the caregiver at bedside. Patient is dependent completely on for ADLs. He is bedbound. We discussed in detail that unfortunately there is a high chance of patient not surviving and even if he does there is a high likelihood of him having worsening quality of life than what he already has. Discussed about CODE STATUS. Discussed that unfortunately if patient has to have cardiac arrest chances of his survival and quality of life will go even poor than what they are right now. Caregivers will discuss further with patient's DPOA about goals of care and would let us know. Will try to call Mr. Nic Bryson again on the cell phone. 12/17: Was able to get in touch with Nic Bryson/state appointed guardian for Mr. Lucas. Had a detailed discussion regarding prognosis, concerns for possible arrhythmia given significant cardiomyopathy with EF of 20% in setting of cardiogenic shock and acute HI. For now the guardian would want patient to remain full code, continue with current care. Anesthesia: Propofol, fentanyl Glycemic control: Not needed, hypoglycemia protocol Nutrition: Start on tube feeds with Nepro 10 cc every hour, increase 10 cc every 4 hours with goal of 35 cc/h. Dietary consultation. Free water flushes 250 cc every 6 hours CODE STATUS: Full code. PUD prophylaxis: Protonix DVT prophylaxis: SCDs. Hemoglobin trending down hold off on heparin for now. Gaurded prognosis Continue with care at ICU Plan for the day: Blood work today shows no leukocytosis, hemoglobin with slight improvement to 8.8, platelet count at 179, ABG showing a pH of 7.4 with a pCO2 of 27 and pO2 of 75, BMP showing a sodium of 142, bicarb of 15 creatinine of 4.1 with a BUN of 35 FiO2 coming down to 40% today. X-ray showing mild resolution in consolidation. Given lower CVP for now we will turn down the Lasix drip to 5 mg/h. Patient has had good urine response to the Lasix drip. Will monitor CVP and MAP during the day and plan for further Lasix drip accordingly. Repeat BMP in afternoon. Replace potassium accordingly. Currently stable. Did have episode of A-fib with RVR at night. Increase dose of amiodarone to 400 mg twice daily. Maintain mean arterial pressure to be maintained over 65. Levophed accordingly. Currently patient off Levophed. Appreciate BMP. Creatinine continues to trend up very slightly. Appreciate BUN. If continues to worsen will plan for nephrology consultation. Patient does have compensated ABG. Will plan for 150 mg of sodium bicarbonate. Discharge plan: Patient lives at [facility]. Has significant developmental delay at baseline. Dependent on caregivers for ADLs at baseline. High concern for increased requirements on discharge. Patient might need PEG tube along with possible tracheostomy depending on clinical improvement. Patient will need prolonged physical therapy. Discussed in detail with patient's caregivers about possible transition to LTAC once patient is more stable. They are agreeable. Case management alerted. Patient has been accepted to LTAC. Awaiting authorization. Care discussed in detail with caregiver at bedside along with director of [facility] over the phone. All the questions were answered. This documentation was created by [employer] talent development consultant software. Every effort was made to ensure accuracy of talent development consultant. Any obvious errors or omissions should be clarified with the author of the document. Attestations Medical Necessity Statement*: Requires further hospitalization for management of congestive heart failure, cardiogenic shock in a patient admitted for acute STEMI post PCI, AKANKSHA, respiratory failure as patient is ventilator dependent Critical Care Time: The high probability of a clinically significant, sudden or life threatening deterioration of the patient's [cardiac, renal, pulmonary] system(s) required my full and direct attention, intervention and personal management. The critical care time is as shown. This time is in addition to time spent performing any reported procedures but includes the following: [x] Data and vital sign review and interpretation [x] Patient assessment, examination and intervention [x] Documentation [x] Medication orders and management Critical Care Time (min): 90 Coding Level of Care Code Critical Care >/= 30 minutes Critical care time (in minutes): 90 The high probability of a clinically significant, sudden or life threatening deterioration, as referenced in this documentation, required my full and direct attention, intervention and personal management. The critical care time shown is in addition to time spent performing any reported separately billable procedures and includes the following: [x] Data and vital sign review and interpretation [x] Patient assessment, examination and intervention [x] Medication orders and management [x] Patient/Family updates as able [x] Care Coordination and Documentation. Other Coding Information This patient has a high probability of clinically significant, sudden or life threatening deterioration of the patient's (neurological/pulmonary/cardiac/renal/ID/endocrine) systems required my full, direct attention, the highest level of physician preparedness for urgent intervention and personal management. I managed/supervised life or organ supporting interventions that required frequent physician assessment. I devoted my full attention in the ICU to the direct care of this patient for the period of time indicated above. Time I spent with family or surrogate(s) is included only if the patient was incapable of providing necessary information or participating in decision making. This time includes the following services provided: Telemetry review Mechanical Ventilation Hemodynamic interpretation, assessment and management Review and interpretation of CXR Review and interpretation of lab values Review and interpretation of microbiologic data and culture results Review of medications and administration Review and interpretation of Nutrition requirements and management Discussion of management with other consultants and services Clinical update to family members Diagnoses Cardiogenic shock R57.0 ST elevation myocardial infarction (STEMI) I21.3 Atrial fibrillation with RVR I48.91 Acute kidney injury N17.9 Hypernatremia E87.0 Anemia D64.9 Leukocytosis D72.829 Transaminitis R74.01 History of pulmonary embolism Z86.711 Developmental delay, profound R62.50 Guardianship Goals of care, counseling/discussion Z71.89
[2024-12-21] MEDS: iron sucrose 200 MG in sodium chloride 0.9% (100 ml) 100 ML 220 MG IV (16:58)
[2024-12-21] MEDS: amiodarone 200 mg Tablet 400 MG PO (16:59)
[2024-12-21] MEDS: sodium bicarbonate 8.4% 1 mEq/mL 50mL Syr 150 MEQ IVP (17:17)
--- NOTE | 2024-12-21 17:34 | PC.NURSE ---
blood pressure lower after lowering lasix gtt today and urine output 1500 out . lasix on hold per order noted blood pressure down , started levophed at 4 mcg after talking with doctor
[2024-12-21 18:07] LABS: Glucose Point of Care 162 mg/dL (70-110)
[2024-12-21] MEDS: atorvastatin 40 mg Tablet 80 MG PO (20:30)
[2024-12-21] MEDS: norepinephrine 4 MG/250 ML BAG 7.5 MG IV (22:45)
[2024-12-22] VITALS (58 sets, daily range): BP systolic 81–123; BP diastolic 50–84; PULSE 83–112; RESP 12–34; TEMP 36.1–37.9; O2SAT 89–100
[2024-12-22] MEDS: fentaNYL 1,000 MCG/100 ML BAG 2.5 MCG IV (00:10)
[2024-12-22] MEDS: propofol 1,000 MG/100 ML INJ 14.37 MG IV (00:57)
[2024-12-22 04:37] LABS: ABG PH Result 7.49 (7.35-7.45); Arterial Blood Gas Hematocrit 23.4 % (42-52); Base Excess ABG 1.3 mmol/L (-2.0-2.0); Blood Gas Allen Test Pos; Blood Gas Sample Site Radial, left; Blood Gas Sample Type Arterial; HCO3 ABG 24.5 mmol/L (22-26); HGB O2 Sat 91.5 % (95-100); Ionized Calcium Level - ABG 1.1 mmol/L (1.1-1.4); Methemoglobin 0.6 % (0.4-1.5); Oxygen Device VENT; PO2 ABG 63.1 mmHg (80.0-100.0); PO2 FiO2 Ratio Arterial Blood 157; Potassium Level - ABG 2.7 mmol/L (3.5-5.0); Total Hemoglobin 7.6 g/dL (14-18)
[2024-12-22] MEDS: piperacillin-tazobactam 3.375 GM in sodium chloride 0.9% (plus) 50 ML IV ×2 (04:54→16:09)
[2024-12-22] MEDS: pantoprazole 40 mg SDV IVP ×2 (04:55→17:02)
[2024-12-22 05:10] LABS: Glucose Point of Care 153 mg/dL (70-110)
[2024-12-22 05:43] LABS: Basophils # 0.1 10^3/uL (0.0-0.1); Basophils % 0.5 %; Eosinophils # 0.4 10^3/uL (0.0-0.8); Eosinophils % 3.3 %; Hematocrit 28.8 % (37-53); Lymphocytes # 0.6 10^3/uL (0.8-4.8); Lymphocytes % 4.4 %; Mean Corpuscular HGB Conc 31.9 g/dL (30-55); Mean Corpuscular Hemoglobin 25.9 pg (27-33); Mean Corpuscular Volume 81.1 fl (82-101); Mean Platelet Volume 12.6 fL (7.4-10.4); Monocytes # 0.9 10^3/uL (0.2-0.9); Monocytes % 7.4 %; Neutrophils # 10.36 10^3/uL (1.8-7.7); Neutrophils % 83.4 %; Nucleated Red Blood Cells % 0.3 %; Platelet Count 238 10^3/cmm (157-399); Red Blood Count 3.55 10^6/uL (3.85-5.65); Red Cell Distribution Width 17.4 % (12.1-15.1); White Blood Count 12.42 10^3/uL (3.29-11.43)
--- NOTE | 2024-12-22 06:00 | XRR_ITS ---
PROCEDURE INFORMATION: Exam: XR Chest Exam date and time: 12/22/2024 5:48 AM Age: 69 years old Clinical indication: Prior surgery; Surgery date: 6+ months; Surgery type: G tube; Patient HX: F/u resp failure. Intubated. TECHNIQUE: Imaging protocol: Radiologic exam of the chest. Views: 1 view. COMPARISON: CR (CHEST, ) 12/21/2024 12:18 PM FINDINGS: Tubes, catheters and devices: Endotracheal tube with tip terminating proximally 3.7 cm from the love. Enteric tube in unchanged placement. Lungs: Similar appearance the aeration and bibasilar opacities to include left retrocardiac dense opacity. Pleural spaces: No pleural effusion. No pneumothorax. Heart/Mediastinum: Cardiomegaly. Bones/joints: No acute osseous abnormality. XR/XR chest 1V portable [id number] IMPRESSION: No acute cardiopulmonary findings.
[2024-12-22 06:06] LABS: Vancomycin Random 21.2 ug/mL (20.0-40.0)
[2024-12-22 06:08] LABS: Alanine Aminotransferase 28 U/L (0-41); Albumin Level 3.4 g/dL (3.5-5.2); Alkaline Phosphatase 105 U/L (40-130); Anion Gap 21.9 (5-19); Aspartate Amino Transferase 20 U/L (0-40); Blood Urea Nitrogen 41 mg/dL (8-23); Calcium 8.4 mg/dL (8.5-10.5); Carbon Dioxide 24 mmol/L (22-29); Chloride 105 mmol/L (98-107); Globulin 2.1 g/dL (1.3-4.6); Glomerular Filtration Rate 13.8 mL/min (90-130); Glucose 136 mg/dL (65-115); Magnesium 1.9 mg/dL (1.7-2.3); Osmolality Calculated 318 mOsm/kg (285-295); Sodium 148 mmol/L (136-145); Total Bilirubin 0.3 mg/dL (0.15-1.2); Total Protein 5.5 g/dL (6.6-8.7)
[2024-12-22 06:17] LABS: Creatinine Clr Calc Pharmacy 18.5031
[2024-12-22 06:18] LABS: Potassium 2.9 mmol/L (3.5-5.1)
[2024-12-22] MEDS: lidocaine 1% 5 ML in potassium chloride premix 100 ML 26.25 ML IV ×2 (07:03→09:06)
[2024-12-22] MEDS: ipratropium-albuterol 3 mL Neb INHALATION ×4 (08:20→21:24)
--- NOTE | 2024-12-22 08:30 | P.PN_ITS ---
Subjective 2 Subjective: Patient's overall condition is unchanged. Plan for extubation today Vitals/I&O/Wt Last Vital Signs Temp 99.5 F 12/22/24 05:00 Pulse 85 12/22/24 08:00 Resp 15 12/22/24 08:00 BP 81/50 12/22/24 07:30 Pulse Ox 96 12/22/24 08:00 O2 Del Method Mechanical Ventilation 12/22/24 08:00 FiO2 35 12/22/24 08:00 12/21/24 12/22/24 12/22/24 22:59 06:59 14:59 Intake Total 2029.705 / 2359.310 406.667 / 2765.977 37.107 / 37.107 Output Total 1050 / 2050 950 / 3000 Balance 979.705 / 309.310 -543.333 / -234.023 37.107 / 37.107 Weight last 48 hrs Weight 183 lb 8 oz Weight 189 lb Physical Exam 2 Const: OTHER: GENERAL: Patient is sedated and intubated HEART: Regular S1 and S2. No murmur, rub or gallop. LUNGS: Decreased breath sounds CENTRAL NERVOUS SYSTEM: Cannot assess due to sedation EXTREMITIES: Lower extremities with out edema bilaterally. Contractures Urinary Catheter Management: Lamb: Cath Placed During This Visit: yes Reason for Continuing Indwelling Catheter: Accurate Measurement of Urinary Output in Critically Ill Patients Urinary Catheter Date of Insertion: 12/15/24 Urinary Catheter Time of Insertion: 22:30 Data 12/22/24 05:16 12/22/24 15:13 A&P Assessment and plan (1) ST elevation myocardial infarction (STEMI): (2) Developmental delay, profound: (3) History of pulmonary embolism: (4) Cardiogenic shock: Plan Patient is stable. Plan for extubation today. Urine output is good. Monitor renal function Continue aspirin and plavix Overall prognosis is guarded Attestations 2 Medical Necessity Statement*: Care expected to cross 2 midnights. Coding Level of Care Code Acute Code for [facility] Diagnoses ST elevation myocardial infarction (STEMI) I21.3 Developmental delay, profound R62.50 History of pulmonary embolism Z86.711 Cardiogenic shock R57.0
[2024-12-22] MEDS: propofol 1,000 MG/100 ML INJ 4.79 MG IV (08:58)
[2024-12-22] MEDS: amiodarone 200 mg Tablet 400 MG PO ×2 (08:59→17:16)
[2024-12-22] MEDS: aspirin 81 mg EC Tablet PO (08:59)
[2024-12-22] MEDS: clopidogrel 75 mg Tablet PO (08:59)
[2024-12-22] MEDS: lactulose oral liq 20 gm/30 mL UDC PO (08:59)
[2024-12-22] MEDS: citalopram 20 mg Tablet 10 MG PO (09:00)
[2024-12-22] MEDS: lidocaine 1% 5 ML in potassium chloride premix 100 ML 52.5 ML IV (09:07)
[2024-12-22] MEDS: levETIRAcetam 1,000 MG/100 ML PREMIX 400 MG IV ×2 (10:17→23:49)
[2024-12-22] MEDS: dexmedeTOMIDine 0.9 % NaCL 400 MCG/100 ML PREMIX IV (10:50)
--- NOTE | 2024-12-22 11:52 | PC.NURSE ---
weaned off sedation and transition to precedex at this time vent setting decreased to cpap
[2024-12-22 12:20] LABS: Glucose Point of Care 140 mg/dL (70-110)
--- NOTE | 2024-12-22 12:30 | PC.NURSE ---
all sedation off will open eyes ,eyes upward but does respond to stimuli
--- NOTE | 2024-12-22 13:32 | PC.NURSE ---
Patient was exacerbated with good outcome. Placed on 3 liters of O2. Left G-tub in for feeding purposes. O2 at 92%. Patient opens eyes, no verbal response which is normal for patient.
--- NOTE | 2024-12-22 15:32 | PC.NURSE ---
wasted fentyl and propfol radha wellington rn
[2024-12-22 15:34] LABS: Blood Urea Nitrogen 43 mg/dL (8-23); Calcium 8.5 mg/dL (8.5-10.5); Carbon Dioxide 18 mmol/L (22-29); Chloride 105 mmol/L (98-107); Creatinine Clr Calc Pharmacy 18.5031; Glomerular Filtration Rate 13.8 mL/min (90-130); Glucose 119 mg/dL (65-115); Osmolality Calculated 312 mOsm/kg (285-295); Sodium 145 mmol/L (136-145)
[2024-12-22 15:36] LABS: Anion Gap 25.6 (5-19); Potassium 3.6 mmol/L (3.5-5.1)
[2024-12-22] MEDS: FUROsemide 10 mg/mL SDV 4mL 40 MG IVP (16:11)
--- NOTE | 2024-12-22 16:27 | P.PN_ITS ---
Subjective 2 Subjective: Patient seen multiple times during the day. Today morning seen laying comfortably in bed, currently on FiO2 of 40%, tidal volume of 500, PEEP of 8, Levophed of 2. In the morning he was on fentanyl and propofol. Was transition to Precedex at 0.2. At around 2:00 patient was extubated to nasal cannula 4 L. Appreciate urine output. Vitals/I&O/Wt Last Vital Signs Temp 98.0 F 12/22/24 15:54 Pulse 94 12/22/24 15:54 Resp 16 12/22/24 15:54 BP 101/68 12/22/24 15:54 Pulse Ox 94 12/22/24 15:54 O2 Del Method Nasal Cannula 12/22/24 15:13 O2 Flow Rate 4 12/22/24 15:13 FiO2 30 12/22/24 11:22 12/22/24 12/22/24 12/22/24 06:59 14:59 22:59 Intake Total 406.667 / 2765.977 526.934 / 526.934 1.200 / 528.134 Output Total 950 / 3000 225 / 225 775 / 1000 Balance -543.333 / -234.023 301.934 / 301.934 -773.800 / -471.866 Weight last 48 hrs Weight 83.234 kg Weight 85.729 kg Physical Exam 2 Narrative: General: No acute distress, following directions very minimally, maintaining airway HEENT: PERRLA, pupils bilaterally equal and reactive Chest: Better bronchial breath sounds over lung shell occasional rhonchi and coarse crackles present right more than left, fine crackles present bilaterally up to lower part of lungs CVS: S1-S2 regular, pansystolic murmur at apex, no tachycardia, no gallops, no rubs Abdomen: Soft, nontender, no organomegaly, bowel sounds present Neuro: No focal deficit Urinary Catheter Management: Lamb: Cath Placed During This Visit: yes Reason for Continuing Indwelling Catheter: Accurate Measurement of Urinary Output in Critically Ill Patients Urinary Catheter Date of Insertion: 12/15/24 Urinary Catheter Time of Insertion: 22:30 Data 12/22/24 05:16 12/22/24 15:13 A&P Assessment and plan (1) Cardiogenic shock: Setting of acute ST elevation DE. Troponin up to 5000's. Oxygen supplementation keeping saturation over 90%. Mean artery pressure to be maintained over 65. Monitor CVP. Wean Levophed accordingly. Currently on Levophed of 2. Hold off on albumin as albumin is better now. MRSA swab positive. Blood culture, sputum cultures so far negative. For now continue with IV antibiotics including vancomycin and Zosyn. Will plan to do 7-day course of antibiotics. Last dose on 12/23. (2) Acute respiratory failure: In setting of congestive heart failure. Concerns for aspiration pneumonia on admission as well. Extubated on 12/22. Supplementation keeping saturation over 90%. Precedex drip to be weaned depending on mentation. Repeat ABG and chest x-ray in AM. Continue with Pulmicort twice daily, ipratropium, Xopenex every 6 hour. Strict input output charting, daily weights. (3) Congestive heart failure: New diagnosis. In setting of STEMI. Echocardiogram done earlier in the admission shows EF of 20% with severe LV dysfunction, regional wall motion abnormality. Patient still overall around 5 to 6 L positive. Good urine output. Was on Lasix drip for 24 hours which have discontinued 12/21. Strict input output charting, daily weights. Lamb catheterization. IV Lasix 40 mg later in the day. Repeat BMP and hemodynamics. Depending on BMP will plan for further Lasix. (4) Acute kidney injury: In setting of cardiogenic shock. Strict input output charting, daily weights. Medical reconciliation done for nephrotoxic drugs. Does have mild metabolic acidosis. Appreciate ABG. Will plan for sodium bicarb pushes accordingly. Monitor hypernatremia. Currently on free water flushes. (5) ST elevation myocardial infarction (STEMI): Cardiology on board. Post PCI to LAD and RCA. Echocardiogram done showed EF of 20% with severely depressed LV functions, akinesia of anterior septal, apical wall, lateral wall hypokinesia, grade 1 diastolic dysfunction. Continue with aspirin Plavix, statin. Appreciate A1c, lipid panel. Is not on beta-dawson as patient is in cardiogenic shock for now. (6) Leukocytosis: MRSA positive. Sputum culture, blood culture negative. Concerns for mild aspiration pneumonitis on admission. Continue with vancomycin and Zosyn to finish a 7-day course. Monitor vancomycin random levels daily. Vancomycin doses accordingly. Patient has remained afebrile. Will change central line and Lmab catheter as per protocols. (7) Atrial fibrillation with RVR: Occasional runs of A-fib with RVR. Continue with amiodarone 400 mg twice daily. Target heart rate below 100. (8) Hypernatremia: Continue with free water flushes to 50 cc every 6 hour. Monitor BMP in afternoon. (9) Anemia: History of iron deficiency anemia in the past. Post recent EGD and colonoscopy. Found to have esophagitis. Hemoglobin stable for now. Continue with IV iron supplementation with last dose on 12/22. Appreciate iron panel, reticulocyte count, LDH, haptoglobin. Target hemoglobin more than 8. Continue with Protonix twice daily. (10) Transaminitis: In setting of multiorgan dysfunction from cardiogenic shock. Monitor daily. (11) History of pulmonary embolism: In setting of COVID-19 before. Not on anticoagulation anymore given history of GI bleed. (12) Developmental delay, profound: (13) Guardianship: (14) Goals of care, counseling/discussion: Plan Continue home chronic medications including Keppra. Goals of care discussion: Had detailed goals of care discussion with patient's caregiver from senior living at bedside. Patient has a state appointed guardian Mr. Nic Bryson. Tried calling Nic on the cell phone but not able to get in touch. As per the caregiver at bedside. Patient is dependent completely on for ADLs. He is bedbound. We discussed in detail that unfortunately there is a high chance of patient not surviving and even if he does there is a high likelihood of him having worsening quality of life than what he already has. Discussed about CODE STATUS. Discussed that unfortunately if patient has to have cardiac arrest chances of his survival and quality of life will go even poor than what they are right now. Caregivers will discuss further with patient's DPOA about goals of care and would let us know. Will try to call Mr. Nic Bryson again on the cell phone. 12/17: Was able to get in touch with Nic Bryson/state appointed guardian for Mr. Lucas. Had a detailed discussion regarding prognosis, concerns for possible arrhythmia given significant cardiomyopathy with EF of 20% in setting of cardiogenic shock and acute DE. For now the guardian would want patient to remain full code, continue with current care. Anesthesia: Precedex Analgesia: Morphine 2 mg 4 hours as needed Glycemic control: Not needed, hypoglycemia protocol Nutrition: Continue with Nepro with goal at 35 cc/h, Free water flushes 250 cc every 6 hours CODE STATUS: Full code. PUD prophylaxis: Protonix DVT prophylaxis: SCDs. Hemoglobin trending down hold off on heparin for now. Gaurded prognosis Continue with care at ICU Discharge plan: Patient lives at [facility]. Has significant developmental delay at baseline. Dependent on caregivers for ADLs at baseline. High concern for increased requirements on discharge. Patient might need PEG tube along with possible tracheostomy depending on clinical improvement. Patient will need prolonged physical therapy. Discussed in detail with patient's caregivers about possible transition to LTAC once patient is more stable. They are agreeable. Case management alerted. Patient has been accepted to LTAC. Awaiting authorization. Care discussed in detail with caregiver at bedside along with director of [facility] over the phone. All the questions were answered. This documentation was created by [employer] piping manager software. Every effort was made to ensure accuracy of piping manager. Any obvious errors or omissions should be clarified with the author of the document. Attestations 2 Medical Necessity Statement*: Requires further hospitalization for management of respiratory failure postextubation, cardiogenic shock, congestive heart failure in a patient admitted for ST ovation DE post PCI with a new EF of 20%, baseline severe mental developmental delay with state guardianship while safe discharge planning is sought Critical Care Time: The high probability of a clinically significant, sudden or life threatening deterioration of the patient's [pulmonary, cardiac, renal, neurological] s ystem(s) required my full and direct attention, intervention and personal management. The critical care time is as shown. This time is in addition to time spent performing any reported procedures but includes the following: [x] Data and vital sign review and interpretation [x] Patient assessment, examination and intervention [x] Documentation [x] Medication orders and management Critical Care Time (min): 90 Coding Level of Care Code Critical Care >/= 30 minutes Critical care time (in minutes): 90 The high probability of a clinically significant, sudden or life threatening deterioration, as referenced in this documentation, required my full and direct attention, intervention and personal management. The critical care time shown is in addition to time spent performing any reported separately billable procedures and includes the following: [x] Data and vital sign review and interpretation [x ] Patient assessment, examination and intervention [x] Medication orders and management [x] Patient/Family updates as able [x] Care Coordination and Documentation. Other Coding Information This patient has a high probability of clinically significant, sudden or life threatening deterioration of the patient's (neurological/pulmonary/cardiac/renal/ID/endocrine) systems required my full, direct attention, the highest level of physician preparedness for urgent intervention and personal management. I managed/supervised life or organ supporting interventions that required frequent physician assessment. I devoted my full attention in the ICU to the direct care of this patient for the period of time indicated above. Time I spent with family or surrogate(s) is included only if the patient was incapable of providing necessary information or participating in decision making. This time includes the following services provided: Telemetry review Mechanical Ventilation Hemodynamic interpretation, assessment and management Review and interpretation of CXR Review and interpretation of lab values Review and interpretation of microbiologic data and culture results Review of medications and administration Review and interpretation of Nutrition requirements and management Discussion of management with other consultants and services Clinical update to family members Diagnoses Cardiogenic shock R57.0 Acute respiratory failure J96.00 Congestive heart failure I50.9 [address] kidney injury [address]17[address]9 ST elevation myocardial infarction (STEMI) I21.3 Leukocytosis D72.829 Atrial fibrillation with RVR I48.91 Hypernatremia E87.0 Anemia D64.9 Transaminitis R74.01 History of pulmonary embolism Z86.711 Developmental delay, profound R62.50 Guardianship Goals of care, counseling/discussion Z71.89
[2024-12-22] MEDS: iron sucrose 200 MG in sodium chloride 0.9% (100 ml) 100 ML 220 MG IV (17:10)
[2024-12-22 18:16] LABS: Glucose Point of Care 114 mg/dL (70-110)
[2024-12-22] MEDS: atorvastatin 40 mg Tablet 80 MG PO (20:16)
[2024-12-23] VITALS (37 sets, daily range): BP systolic 115–161; BP diastolic 74–103; PULSE 91–112; RESP 13–35; TEMP 36.6–37.3; O2SAT 89–98
--- NOTE | 2024-12-23 00:18 | PC.RESP ---
Dr. Marin ordered bipap for patient that has been extubated and on a nasal cannula of 6LPM. sats have been bouncing fron 89-93 on the nasal cannula. Patient has been yankered for secretions and that has been working well. Patient also has a NG tube. No respiratory distress. Patient also does not have the ability to take bipap off his self. Bipap was not placed during mid level practitioner due to contraindications.
[2024-12-23] MEDS: piperacillin-tazobactam 3.375 GM in sodium chloride 0.9% (plus) 50 ML IV ×2 (05:17→16:18)
[2024-12-23] MEDS: pantoprazole 40 mg SDV IVP ×2 (05:17→17:14)
--- NOTE | 2024-12-23 06:00 | XRR_ITS ---
PROCEDURE INFORMATION: Exam: XR Chest Exam date and time: 12/23/2024 6:09 AM Age: 69 years old Clinical indication: Device placement; Ett placement (vent status); Prior surgery; Surgery date: 6+ months; Surgery type: G tube; Additional info: Intubated TECHNIQUE: Imaging protocol: Radiologic exam of the chest. Views: 1 view. COMPARISON: CR (CHEST, ) 12/22/2024 5:48 AM FINDINGS: Tubes, catheters and devices: Nasogastric tube is present with its tip overlying the stomach. A portion of the catheter is either coiled overlying the neck or coiled within the patient's mouth/pharynx. Central venous catheter seen on the right with its tip overlying the SVC/right atrial junction. There may be an endotracheal tube present. If there is in fact an endotracheal tube present, the tip is 13 cm above the love although the presence of a endotracheal tube is not definite. Recommend clinical correlation. Lungs: There are bilateral infiltrates in the perihilar regions and lung bases. Pleural spaces: Suspect small pleural effusions. Heart/Mediastinum: The heart is enlarged. Bones/joints: Unremarkable. XR/XR chest 1V portable [id number] IMPRESSION: 1. Lines and tubes as above. 2. Cardiomegaly. 3. Bilateral perihilar and basilar infiltrates and effusions.
[2024-12-23 06:03] LABS: Basophils # 0.1 10^3/uL (0.0-0.1); Basophils % 0.7 %; Eosinophils # 0.4 10^3/uL (0.0-0.8); Eosinophils % 2.9 %; Hematocrit 31.4 % (37-53); Lymphocytes % 7.4 %; Mean Corpuscular HGB Conc 30.9 g/dL (30-55); Mean Corpuscular Hemoglobin 25.4 pg (27-33); Mean Corpuscular Volume 82.2 fl (82-101); Mean Platelet Volume 11.6 fL (7.4-10.4); Monocytes % 7.7 %; Neutrophils # 10.92 10^3/uL (1.8-7.7); Neutrophils % 80.3 %; Nucleated Red Blood Cells % 0.1 %; Platelet Count 276 10^3/cmm (157-399); Red Blood Count 3.82 10^6/uL (3.85-5.65); Red Cell Distribution Width 18.1 % (12.1-15.1); White Blood Count 13.59 10^3/uL (3.29-11.43)
[2024-12-23 06:17] LABS: Glucose Point of Care 110 mg/dL (70-110)
[2024-12-23 06:30] LABS: Alanine Aminotransferase 34 U/L (0-41); Albumin Level 3.5 g/dL (3.5-5.2); Alkaline Phosphatase 102 U/L (40-130); Anion Gap 26.9 (5-19); Aspartate Amino Transferase 40 U/L (0-40); Blood Urea Nitrogen 45 mg/dL (8-23); Calcium 8.9 mg/dL (8.5-10.5); Carbon Dioxide 20 mmol/L (22-29); Chloride 107 mmol/L (98-107); Creatinine Clr Calc Pharmacy 18.5031; Globulin 3.3 g/dL (1.3-4.6); Glomerular Filtration Rate 13.8 mL/min (90-130); Glucose 103 mg/dL (65-115); Osmolality Calculated 324 mOsm/kg (285-295); Phosphorus 3.4 mg/dL (2.5-4.5); Sodium 151 mmol/L (136-145); Total Bilirubin 0.5 mg/dL (0.15-1.2); Total Protein 6.8 g/dL (6.6-8.7)
[2024-12-23 07:03] LABS: Potassium 2.9 mmol/L (3.5-5.1)
--- NOTE | 2024-12-23 07:20 | PC.NURSE ---
Dr. Marin called to check on patient plan of care. Order given to resume tube feeding as previously ordered with free water flushes. 80meq K ordered per ng tube.
[2024-12-23] MEDS: FUROsemide 10 mg/mL SDV 4mL 40 MG IVP (08:00)
[2024-12-23] MEDS: potassium chloride oral liq 20 mEq/15 mL UDC 80 MEQ PO (08:00)
[2024-12-23] MEDS: ipratropium-albuterol 3 mL Neb INHALATION ×4 (08:05→20:00)
[2024-12-23 08:26] LABS: Glucose Point of Care 100 mg/dL (70-110)
--- NOTE | 2024-12-23 09:08 | P.PN_ITS ---
<Statement entered by Anuel Freitas M.D - 12/23/24 20:45> Patient was evaluated and cared for in conjunction with an advanced practice practitioner. I personally examined the patient and reviewed the chart and all pertinent data including imaging, telemetry, and laboratory results. I discussed the patient in detail with the advanced practice practitioner. Please see their note for complete progress note, results and agreed upon plan of care for the patient. Patient is now extubated GENERAL: Patient is drowsy HEART: Regular S1 and S2 LUNGS: Diminished air entry bilaterally EXTREMITIES: Lower extremities with no edema Subjective 2 Subjective: He was extubated yesterday, currently on nasal cannula 4 to 6 L. He is off all pressors, maintaining good blood pressure. Maintaining a negative fluid balance. Vitals/I&O/Wt Last Vital Signs Temp 99.1 F 12/23/24 08:00 Pulse 100 12/23/24 08:05 Resp 20 H 12/23/24 08:05 BP 128/79 12/23/24 08:00 Pulse Ox 93 12/23/24 08:05 O2 Del Method Nasal Cannula 12/23/24 08:05 O2 Flow Rate 6 12/23/24 08:05 FiO2 6 12/22/24 20:00 12/22/24 12/23/24 12/23/24 22:59 06:59 14:59 Intake Total 1.200 / 828.290 300.156 / 828.290 Output Total 1125 / 1350 Balance -1123.800 / -521.710 300.156 / -521.710 Weight last 48 hrs Weight 182 lb Weight 183 lb 8 oz Physical Exam 2 Const: COMMON NORMALS: no acute distress ORIENTATION/CONSCIOUSNESS: Yes Other orientation findings (Significant mental delay) Chest: COMMONS NORMALS: normal inspection of the chest and normal palpation of entire chest wall CHEST: Yes Symmetrical chest wall rise Resp: COMMON NORMALS: normal respiratory effort, No retractions and No use of accessory muscles EFFORT & INSPECTION: Yes symmetric chest movement A USCULTATION: rhonchi and diminished lung sounds bilateral in the lower lung shell Cardio: COMMON NORMALS: regular rhythm, S1 normal heart sound present, S2 normal heart sound present, No gallops present (Cardio), No clicks present (Cardio), No murmurs present (Cardio) and No rub (Cardio) RATE: tachycardic RHYTHM: regular rhythm HEART SOUNDS: S1 normal heart sound present and S2 normal heart sound present PERIPHERAL PULSES: radial pulses present Extremity: COMMON NORMALS: no pedal edema Neuro: COMMON NORMALS: moves all extremities Urinary Catheter Management: Lamb: Cath Placed During This Visit: yes Reason for Continuing Indwelling Catheter: Accurate Measurement of Urinary Output in Critically Ill Patients Urinary Catheter Date of Insertion: 12/15/24 Urinary Catheter Time of Insertion: 22:30 Data 12/23/24 05:54 12/23/24 05:54 A&P Assessment and plan (1) ST elevation myocardial infarction (STEMI): (2) Developmental delay, profound: (3) History of pulmonary embolism: (4) Cardiogenic shock: Plan Cardiogenic shock appears to have resolved. Good urine output. If blood pressure remains in the 120s to 130s systolic, we may start metoprolol tartrate 12.5 mg twice a day for heart rate control. Continue aspirin and Plavix. He appears stable overall. Attestations 2 Medical Necessity Statement*: STEMI, extubated yesterday Coding Level of Care Code Acute Code for [facility] Diagnoses ST elevation myocardial infarction (STEMI) I21.3 Developmental delay, profound R62.50 History of pulmonary embolism Z86.711 Cardiogenic shock R57.0
[2024-12-23] MEDS: amiodarone 200 mg Tablet 400 MG PO ×2 (09:14→17:15)
[2024-12-23] MEDS: citalopram 20 mg Tablet 10 MG PO (09:14)
[2024-12-23] MEDS: lactulose oral liq 20 gm/30 mL UDC PO (09:15)
[2024-12-23] MEDS: aspirin 81 mg EC Tablet PO (09:15)
[2024-12-23] MEDS: clopidogrel 75 mg Tablet PO (09:15)
[2024-12-23] MEDS: metoprolol tartrate 25 mg Tablet 12.5 MG PO ×2 (09:15→21:48)
[2024-12-23 09:44] LABS: ABG PCO2 29.2 mmHg (35-45); ABG PH Result 7.46 (7.35-7.45); Alveolar-Arterial Oxygen Gradi 28.1 mmHg (5-10); Arterial Blood Gas Hematocrit 32.4 % (42-52); Base Excess ABG -2.5 mmol/L (-2.0-2.0); Blood Gas Allen Test Pos; Blood Gas Operator Identificat GD; Blood Gas Sample Site Radial, left; Blood Gas Sample Type Arterial; Carboxyhemoglobin 1.2 %THgb (0.4-20.1); HCO3 ABG 20.6 mmol/L (22-26); HGB O2 Sat 89.5 % (95-100); Ionized Calcium Level - ABG 1.2 mmol/L (1.1-1.4); Methemoglobin 1.3 % (0.4-1.5); Oxygen Device NC; Oxygen Saturation ABG 91.8; PO2 ABG 62.4 mmHg (80.0-100.0); PO2 FiO2 Ratio Arterial Blood 141; Potassium Level - ABG 4.2 mmol/L (3.5-5.0); Total Hemoglobin 10.6 g/dL (14-18)
[2024-12-23] MEDS: levETIRAcetam 1,000 MG/100 ML PREMIX 400 MG IV (09:50)
[2024-12-23] MEDS: fluconazole oral liq 40 mg/mL Syringe 100 MG PO (09:53)
[2024-12-23 10:32] LABS: Vancomycin Random 15.5 ug/mL (20.0-40.0)
[2024-12-23 12:07] LABS: Glucose Point of Care 150 mg/dL (70-110)
[2024-12-23 12:51] LABS: Anion Gap 23.9 (5-19); Blood Urea Nitrogen 45 mg/dL (8-23); Calcium 9.4 mg/dL (8.5-10.5); Carbon Dioxide 22 mmol/L (22-29); Chloride 112 mmol/L (98-107); Creatinine Clr Calc Pharmacy 19.8219; Glomerular Filtration Rate 15.1 mL/min (90-130); Glucose 147 mg/dL (65-115); Osmolality Calculated 332 mOsm/kg (285-295); Potassium 3.9 mmol/L (3.5-5.1); Sodium 154 mmol/L (136-145)
--- NOTE | 2024-12-23 13:10 | SUR.OPER ---
Notified Dr. Marin that Na+ level is 154 and K+ level is 3.9. Orders given to increase free water flushes to 250mL every 4 hours and recheck BMP at 1700.
--- NOTE | 2024-12-23 15:59 | PM.PN ---
Subjective Subjective: Overnight no acute events. Currently on examination patient is on 6 L of oxygen supplementation saturating 90 to 92%. Heart rate slightly elevated. Off Levophed drip. Overnight patient has not been on tube feeds. Appreciate urine output in last 24 hours. Vitals/I&O/Wt Last Vital Signs Temp 99.1 F 12/23/24 13:45 Pulse 111 H 12/23/24 14:00 Resp 28 H 12/23/24 13:45 BP 130/84 12/23/24 13:45 Pulse Ox 93 12/23/24 13:45 O2 Del Method Nasal Cannula 12/23/24 12:00 O2 Flow Rate 6 12/23/24 12:00 FiO2 6 12/22/24 20:00 12/23/24 12/23/24 12/23/24 06:59 14:59 22:59 Intake Total 300.156 / 828.290 150 / 150 Output Total 700 / 700 Balance 300.156 / -521.710 -550 / -550 Weight last 48 hrs Weight 82.554 kg Weight 83.234 kg Physical Exam Narrative: General: No acute distress, following directions very minimally, maintaining airway HEENT: PERRLA, pupils bilaterally equal and reactive Chest: Better bronchial breath sounds over lung shell occasional rhonchi and coarse crackles present right more than left, fine crackles present bilaterally up to lower part of lungs CVS: S1-S2 regular, pansystolic murmur at apex, no tachycardia, no gallops, no rubs Abdomen: Soft, nontender, no organomegaly, bowel sounds present Neuro: No focal deficit Urinary Catheter Management: Lamb: Cath Placed During This Visit: yes Reason for Continuing Indwelling Catheter: Accurate Measurement of Urinary Output in Critically Ill Patients Urinary Catheter Date of Insertion: 12/15/24 Urinary Catheter Time of Insertion: 22:30 Data 12/23/24 05:54 12/23/24 12:19 A&P Assessment and plan (1) Congestive heart failure: New diagnosis. In setting of STEMI. Echocardiogram done earlier in the admission shows EF of 20% with severe LV dysfunction, regional wall motion abnormality. Patient still overall around 5 to 6 L positive. Good urine output. Was on Lasix drip for 24 hours which have discontinued 12/21. Strict input output charting, daily weights. Lamb catheterization. IV Lasix 40 mg one-time. Depending on the urine output will plan for further Lasix if needed. (2) Acute kidney injury: In setting of cardiogenic shock. Strict input output charting, daily weights. Medical reconciliation done for nephrotoxic drugs. Developing metabolic and respiratory alkalosis now. Developing hypernatremia again. Restart tube feeds and free water flushes. Repeat BMP in evening. (3) Hypernatremia: Restart free water flushes 250 cc every 4 hours. Continue with tube feeding. Holding off on IV fluids for now given concerns for congestive heart failure. Repeat BMP in afternoon. (4) ST elevation myocardial infarction (STEMI): Cardiology on board. Post PCI to LAD and RCA. Echocardiogram done showed EF of 20% with severely depressed LV functions, akinesia of anterior septal, apical wall, lateral wall hypokinesia, grade 1 diastolic dysfunction. Continue with aspirin Plavix, statin. Appreciate A1c, lipid panel. Start on metoprolol 12.5 mg twice daily. Will uptitrate if heart rate and blood pressure tolerating. (5) Leukocytosis: MRSA positive. Sputum culture, blood culture negative. Concerns for mild aspiration pneumonitis on admission. For now continue with IV antibiotics including vancomycin and Zosyn. Last dose of Zosyn on 12/24 and vancomycin on 12/25. Dose as per creatinine clearance and Vanco random levels. Patient has remained afebrile. Will change central line and Lamb catheter as per protocols. (6) Cardiogenic shock: Setting of acute ST elevation KS. Troponin up to 5000's. Oxygen supplementation keeping saturation over 90%. Mean artery pressure to be maintained over 65. Monitor CVP. Levophed weaned off. MRSA swab positive. Blood culture, sputum cultures so far negative. (7) Acute respiratory failure: In setting of congestive heart failure. Concerns for aspiration pneumonia on admission as well. Extubated on 12/22. Supplementation keeping saturation over 90%. Aggressive pulmonary toilet with chest vest. Patient having difficulty in clearing his airway. Will have to continue to monitor. If continues to remain the same way patient might need bronchoscopy. Continue with Pulmicort twice daily, ipratropium, Xopenex every 6 hour. Strict input output charting, daily weights. (8) Atrial fibrillation with RVR: Occasional runs of A-fib with RVR. Continue with amiodarone 400 mg twice daily. Target heart rate below 100. Starting metoprolol as above. (9) Anemia: History of iron deficiency anemia in the past. Post recent EGD and colonoscopy. Found to have esophagitis. Hemoglobin stable for now. Continue with IV iron supplementation with last dose on 12/22. Appreciate iron panel, reticulocyte count, LDH, haptoglobin. Target hemoglobin more than 8. Continue with Protonix twice daily. (10) Transaminitis: In setting of multiorgan dysfunction from cardiogenic shock. Monitor daily. (11) History of pulmonary embolism: In setting of COVID-19 before. Not on anticoagulation anymore given history of GI bleed. (12) Developmental delay, profound: (13) Guardianship: (14) Goals of care, counseling/discussion: Plan Continue home chronic medications including Keppra. Goals of care discussion: Had detailed goals of care discussion with patient's caregiver from [facility] at bedside. Patient has a state appointed guardian Mr. Nic Bryson. Tried calling Nic on the cell phone but not able to get in touch. As per the caregiver at bedside. Patient is dependent completely on for ADLs. He is bedbound. We discussed in detail that unfortunately there is a high chance of patient not surviving and even if he does there is a high likelihood of him having worsening quality of life than what he already has. Discussed about CODE STATUS. Discussed that unfortunately if patient has to have cardiac arrest chances of his survival and quality of life will go even poor than what they are right now. Caregivers will discuss further with patient's DPOA about goals of care and would let us know. Will try to call Mr. Nic Bryson again on the cell phone. 12/17: Was able to get in touch with Nicsuki Bryson/state appointed guardian for Mr. Lucas. Had a detailed discussion regarding prognosis, concerns for possible arrhythmia given significant cardiomyopathy with EF of 20% in setting of cardiogenic shock and acute KS. For now the guardian would want patient to remain full code, continue with current care. Anesthesia: Precedex Analgesia: Morphine 2 mg 4 hours as needed Glycemic control: Not needed, hypoglycemia protocol Nutrition: Continue with Nepro with goal at 35 cc/h, Free water flushes 250 cc every 6 hours CODE STATUS: Full code. PUD prophylaxis: Protonix DVT prophylaxis: SCDs. Hemoglobin trending down hold off on heparin for now. Gaurded prognosis Continue with care at ICU Discharge plan: Patient lives at [facility]. Has significant developmental delay at baseline. Dependent on caregivers for ADLs at baseline. High concern for increased requirements on discharge. Patient might need PEG tube along with possible tracheostomy depending on clinical improvement. Patient will need prolonged physical therapy. Discussed in detail with patient's caregivers about possible transition to LTAC once patient is more stable. Patient was accepted to LTAC but unfortunately has been declined now as he has been extubated. For now we will continue the care. Possible discharge to SNF vs back to [facility]. Care discussed in detail with caregiver at bedside along with director of [facility] over the phone. All the questions were answered. This documentation was created by [employer] learning and development assistant software. Every effort was made to ensure accuracy of learning and development assistant. Any obvious errors or omissions should be clarified with the author of the document. Attestations Medical Necessity Statement*: Requires further hospitalization for management of acute kidney injury, hypernatremia congestive heart failure, postextubation status in a patient with concerns for cardiogenic In setting of ST elevation KS, advanced mental developmental Critical Care Time: The high probability of a clinically significant, sudden or life threatening deterioration of the patient's [cardiac, pulmonary, renal] system(s) required my full and direct attention, intervention and personal management. The critical care time is as shown. This time is in addition to time spent performing any reported procedures but includes the following: [x] Data and vital sign review and interpretation [x] Patient assessment, examination and intervention [x] Documentation [x] Medication orders and management Critical Care Time (min): 80 Coding Level of Care Code Critical Care >/= 30 minutes Critical care time (in minutes): 80 The high probability of a clinically significant, sudden or life threatening deterioration, as referenced in this documentation, required my full and direct attention, intervention and personal management. The critical care time shown is in addition to time spent performing any reported separately billable procedures and includes the following: [x] Data and vital sign review and interpretation [x] Patient assessment, examination and intervention [x] Medication orders and management [x] Patient/Family updates as able [x] Care Coordination and Documentation. Other Coding Information This patient has a high probability of clinically significant, sudden or life threatening deterioration of the patient's (neurological/pulmonary/cardiac/renal/ID/endocrine) systems required my full, direct attention, the highest level of physician preparedness for urgent intervention and personal management. I managed/supervised life or organ supporting interventions that required frequent physician assessment. I devoted my full attention in the ICU to the direct care of this patient for the period of time indicated above. Time I spent with family or surrogate(s) is included only if the patient was incapable of providing necessary information or participating in decision making. This time includes the following services provided: Telemetry review Hemodynamic interpretation, assessment and management Review and interpretation of CXR Review and interpretation of lab values Review and interpretation of microbiologic data and culture results Review of medications and administration Review and interpretation of Nutrition requirements and management Discussion of management with other consultants and services Clinical update to family members Diagnoses Congestive heart failure I50.9 Acute kidney injury N17.[address] elevation myocardial infarction (STEMI) I21.3 Leukocytosis D72.829 Cardiogenic shock R57.0 Acute respiratory failure J96.00 Atrial fibrillation with RVR I48.91 Anemia D64.9 Transaminitis R74.01 History of pulmonary embolism Z86.711 Developmental delay, profound R62.50 Guardianship Goals of care, counseling/discussion Z71.89
[2024-12-23] MEDS: heparin 5,000 unit/mL INJ 1 mL 5000 UNIT SUBCUT (16:18)
[2024-12-23 17:39] LABS: Glucose Point of Care 154 mg/dL (70-110)
[2024-12-23 17:56] LABS: Anion Gap 19.5 (5-19); Blood Urea Nitrogen 48 mg/dL (8-23); Calcium 9.2 mg/dL (8.5-10.5); Carbon Dioxide 24 mmol/L (22-29); Chloride 115 mmol/L (98-107); Creatinine Clr Calc Pharmacy 19.3385; Glomerular Filtration Rate 14.6 mL/min (90-130); Glucose 151 mg/dL (65-115); Osmolality Calculated 336 mOsm/kg (285-295); Potassium 3.5 mmol/L (3.5-5.1); Sodium 155 mmol/L (136-145)
[2024-12-23] MEDS: FUROsemide 10 mg/mL SDV 10mL 60 MG IVP (18:30)
[2024-12-23] MEDS: potassium chloride oral liq 20 mEq/15 mL UDC 40 MEQ PO (18:36)
[2024-12-23] MEDS: levETIRAcetam 1,000 mg/10 mL UDC 1000 MG NG-TUBE (21:48)
[2024-12-23] MEDS: atorvastatin 40 mg Tablet 80 MG PO (21:48)
[2024-12-23 23:38] LABS: Glucose Point of Care 143 mg/dL (70-110)
[2024-12-24] VITALS (30 sets, daily range): BP systolic 125–172; BP diastolic 79–104; PULSE 87–104; RESP 15–34; TEMP 36.6–37.8; O2SAT 86–96
[2024-12-24 04:17] LABS: Basophils # 0.1 10^3/uL (0.0-0.1); Basophils % 0.6 %; Eosinophils # 0.3 10^3/uL (0.0-0.8); Eosinophils % 1.9 %; Hematocrit 30.8 % (37-53); Lymphocytes # 1.1 10^3/uL (0.8-4.8); Lymphocytes % 8.2 %; Mean Corpuscular HGB Conc 30.2 g/dL (30-55); Mean Corpuscular Hemoglobin 25.3 pg (27-33); Mean Corpuscular Volume 83.9 fl (82-101); Mean Platelet Volume 12.3 fL (7.4-10.4); Monocytes % 7.6 %; Neutrophils # 11.09 10^3/uL (1.8-7.7); Neutrophils % 80.5 %; Nucleated Red Blood Cells % 0.1 %; Platelet Count 272 10^3/cmm (157-399); Red Blood Count 3.67 10^6/uL (3.85-5.65); Red Cell Distribution Width 18.6 % (12.1-15.1); White Blood Count 13.76 10^3/uL (3.29-11.43)
[2024-12-24 04:32] LABS: Alanine Aminotransferase 45 U/L (0-41); Albumin Level 3.5 g/dL (3.5-5.2); Alkaline Phosphatase 111 U/L (40-130); Anion Gap 20.3 (5-19); Aspartate Amino Transferase 45 U/L (0-40); Blood Urea Nitrogen 52 mg/dL (8-23); Carbon Dioxide 25 mmol/L (22-29); Chloride 111 mmol/L (98-107); Creatinine Clr Calc Pharmacy 19.3385; Globulin 2.7 g/dL (1.3-4.6); Glomerular Filtration Rate 14.6 mL/min (90-130); Glucose 153 mg/dL (65-115); Osmolality Calculated 333 mOsm/kg (285-295); Potassium 3.3 mmol/L (3.5-5.1); Sodium 153 mmol/L (136-145); Total Bilirubin 0.3 mg/dL (0.15-1.2); Total Protein 6.2 g/dL (6.6-8.7)
[2024-12-24 04:33] LABS: Vancomycin Random 13.6 ug/mL (20.0-40.0)
[2024-12-24] MEDS: pantoprazole 40 mg SDV IVP ×2 (05:36→17:47)
[2024-12-24] MEDS: heparin 5,000 unit/mL INJ 1 mL 5000 UNIT SUBCUT ×2 (05:36→16:16)
[2024-12-24] MEDS: piperacillin-tazobactam 3.375 GM in sodium chloride 0.9% (plus) 50 ML IV (05:36)
--- NOTE | 2024-12-24 06:00 | XRR_ITS ---
PROCEDURE INFORMATION: Exam: XR Chest Exam date and time: 12/24/2024 4:39 AM Age: 69 years old Clinical indication: Condition or disease; Other: Extubate; Additional info: Intubated TECHNIQUE: Imaging protocol: Radiologic exam of the chest. Views: 1 view. COMPARISON: CR XR chest 1V portable [id number] 12/23/2024 6:09 AM FINDINGS: Tubes, catheters and devices: There is a right jugular central venous catheter with its tip projecting in the distal superior vena cava. There is an NG tube in the stomach Lungs: There is persistent left basilar consolidation . There has been some improvement in the infiltrates in the left midlung zone and some improvement in infiltrates in the right mid and lower lung zones. Pleural spaces: There is a small right pleural effusion. Heart/Mediastinum: There is stable cardiomegaly. Bones/joints: Unremarkable. XR/XR chest 1V portable [id number] IMPRESSION: 1. Lines and tubes as described 2. Stable cardiomegaly 3. Some improvement in bilateral infiltrates though persistent consolidation in the left lung base 4. Small right pleural effusion
[2024-12-24 06:05] LABS: ABG PCO2 35.8 mmHg (35-45); ABG PH Result 7.48 (7.35-7.45); Alveolar-Arterial Oxygen Gradi 6.3 mmHg (5-10); Arterial Blood Gas Hematocrit 32.8 % (42-52); Base Excess ABG 3.3 mmol/L (-2.0-2.0); Blood Gas Allen Test Pos; Blood Gas Operator Identificat JDB; Blood Gas Sample Site Brachial, left; Blood Gas Sample Type Arterial; Carboxyhemoglobin 1.4 %THgb (0.4-20.1); HCO3 ABG 26.8 mmol/L (22-26); HGB O2 Sat 87.8 % (95-100); Ionized Calcium Level - ABG 1.2 mmol/L (1.1-1.4); Methemoglobin 1.3 % (0.4-1.5); Oxygen Device ROOM AIR; Oxygen Saturation ABG 90.2; PO2 ABG 56.9 mmHg (80.0-100.0); PO2 FiO2 Ratio Arterial Blood 270; Total Hemoglobin 10.7 g/dL (14-18)
[2024-12-24 06:38] LABS: Glucose Point of Care 158 mg/dL (70-110)
[2024-12-24] MEDS: ipratropium-albuterol 3 mL Neb INHALATION ×4 (07:55→20:12)
[2024-12-24] MEDS: vancomycin 500 MG in sodium chloride 0.9% (plus) 100 ML 200 MG IV (08:40)
[2024-12-24] MEDS: levETIRAcetam 1,000 mg/10 mL UDC 1000 MG NG-TUBE ×2 (08:42→20:29)
[2024-12-24] MEDS: lactulose oral liq 20 gm/30 mL UDC PO (08:42)
[2024-12-24] MEDS: clopidogrel 75 mg Tablet PO (08:42)
[2024-12-24] MEDS: amiodarone 200 mg Tablet 400 MG PO ×2 (08:42→17:47)
[2024-12-24] MEDS: metoprolol tartrate 25 mg Tablet 12.5 MG PO ×2 (08:42→20:29)
[2024-12-24] MEDS: citalopram 20 mg Tablet 10 MG PO (08:42)
[2024-12-24] MEDS: aspirin 81 mg EC Tablet PO (08:42)
[2024-12-24] MEDS: fluconazole oral liq 40 mg/mL Syringe 100 MG PO (08:44)
--- NOTE | 2024-12-24 09:43 | PC.NURSE ---
Notified Dr. Snyder that K+ this AM is 3.3. Orders given for potassium replacement.
--- NOTE | 2024-12-24 10:15 | P.PN_ITS ---
<Statement entered by Anuel Freitas M.D - 12/25/24 20:36> Patient was evaluated and cared for in conjunction with an advanced practice practitioner. I personally reviewed the chart and all pertinent data including imaging, telemetry, and laboratory results. I discussed the patient in detail with the advanced practice practitioner. Please see their note for complete progress note, results and agreed upon plan of care for the patient. Subjective 2 Subjective: He appears stable from a cardiovascular perspective. Blood pressure maintaining well without vasopressors. He has profound mental delay however was able to follow me as I moved around the room. No significant changes from yesterday. Vitals/I&O/Wt Last Vital Signs Temp 98.8 F 12/24/24 05:00 Pulse 104 H 12/24/24 08:06 Resp 20 H 12/24/24 07:55 BP 141/89 12/24/24 06:00 Pulse Ox 92 12/24/24 07:55 O2 Del Method Nasal Cannula 12/24/24 07:55 O2 Flow Rate 2 12/24/24 07:55 FiO2 6 12/22/24 20:00 12/23/24 12/24/24 12/24/24 22:59 06:59 14:59 Intake Total 1059 / 2404 1195 / 2404 Output Total 600 / 2950 1650 / 2950 Balance 459 / -546 -455 / -546 Weight last 48 hrs Weight 176 lb 5.917 oz Weight 182 lb Physical Exam 2 Const: EXAM LIMITATIONS: physical limitations (mental delay) O RIENTATION/CONSCIOUSNESS: Yes awake Resp: COMMON NORMALS: normal respiratory effort AUSCULTATION: diminished lung sounds bilateral in the lower lung shell Cardio: COMMON NORMALS: regular rate, regular rhythm, S1 normal heart sound present and S2 normal heart sound present RATE: regular rate RHYTHM: r egular rhythm HEART SOUNDS: S1 normal heart sound present and S2 normal heart sound present Extremity: GENERAL: No edema Urinary Catheter Management: Lamb: Cath Placed During This Visit: yes Reason for Continuing Indwelling Catheter: Accurate Measurement of Urinary Output in Critically Ill Patients Urinary Catheter Date of Insertion: 12/15/24 Urinary Catheter Time of Insertion: 22:30 Data 12/24/24 03:48 12/24/24 03:48 A&P Assessment and plan (1) ST elevation myocardial infarction (STEMI): (2) Developmental delay, profound: Plan He is doing well on current medications, tolerating metoprolol tartrate 12.5 mg twice a day. Continue amiodarone 400 mg twice daily, aspirin, Plavix, atorvastatin. Attestations 2 Medical Necessity Statement*: STEMI Coding Level of Care Code Acute Code for [facility] Diagnoses ST elevation myocardial infarction (STEMI) I21.3 Developmental delay, profound R62.50
[2024-12-24] MEDS: potassium chloride oral liq 20 mEq/15 mL UDC 40 MEQ NG-TUBE (10:27)
[2024-12-24 11:25] LABS: Glucose Point of Care 142 mg/dL (70-110)
--- NOTE | 2024-12-24 14:03 | P.PN_ITS ---
Subjective 2 Subjective: Patient is awake but does not appear to attempted communicate verbally or nonverbally. This limits history from the patient. No acute overnight events per signout. Medications: Reviewed: Yes Vitals/I&O/Wt Last Vital Signs Temp 97.8 F 12/24/24 12:00 Pulse 92 12/24/24 12:00 Resp 21 H 12/24/24 12:00 BP 152/98 12/24/24 12:00 Pulse Ox 95 12/24/24 12:00 O2 Del Method Room Air 12/24/24 12:00 O2 Flow Rate 2 12/24/24 11:17 FiO2 6 12/22/24 20:00 12/23/24 12/24/24 12/24/24 22:59 06:59 14:59 Intake Total 1059 / 1209 1195 / 2404 150 / 150 Output Total 600 / 1300 1650 / 2950 Balance 459 / -91 -455 / -546 150 / 150 Weight last 48 hrs Weight 80 kg Weight 82.554 kg Physical Exam 2 Narrative: General: Patient is awake. Disconjugate gaze. Restless. Head: Normocephalic. Atraumatic. EOM intact. Neck: No JVD. Cardiovascular: RRR. No gallops. Murmurs present. Lower extremities are edematous.. Lungs: Breath sounds are coarse with dependent crackles bilaterally. Tachypneic. On supplemental support. Skin: No jaundice. No rashes. Abdomen: Normal bowel sounds, abdomen soft. Small scar likely old feeding tube site. Genito Urinary: Genital exam not performed since complaints not related. Rectal: Rectal exam not performed since no symptoms indicated blood loss. Extremities: No cyanosis or clubbing. Musculoskeletal: No erythematous joints. Neurological: Marked contracture of arm. No myoclonus. Urinary Catheter Management: Lamb: Cath Placed During This Visit: yes Reason for Continuing Indwelling Catheter: Accurate Measurement of Urinary Output in Critically Ill Patients Urinary Catheter Date of Insertion: 12/15/24 Urinary Catheter Time of Insertion: 22:30 Data 12/24/24 03:48 12/24/24 03:48 A&P Assessment and plan (1) Acute respiratory failure: Respiratory status is improving Continue supplemental support, wean as tolerated Monitor fluid status, he is currently fluid overloaded Supportive care (2) Dysphagia: Suspected dysphagia with history of prior PEG tube Continue NG tube feeds Request speech therapy evaluation (3) Acute kidney injury: Renal function remains poor He remains fluid overloaded with greater than 5 L net positive since admission Hold off on diuresis due to hypernatremia Likely need diuresis soon May benefit from nephrology consult pending clinical course (4) Hypernatremia: Remains hyponatremic Increasing free water flushes, if sodium does not improve we will likely start D5W Trend levels (5) Congestive heart failure: Strict I's and O's, daily weights Patient would benefit from diuresis, need electrolytes corrected first (6) Aspiration pneumonia: Aspiration precautions Chest therapy ST eval Continue current vancomycin and Zosyn, current stop dates are okay (7) Atrial fibrillation with RVR: RVR is resolved Continue amiodarone loading Continue metoprolol tartrate Not on full dose anticoagulation due to history of GI bleed Continues telemetry monitoring (8) ST elevation myocardial infarction (STEMI): Cardiology following, appreciate recommendations Continue DAPT with aspirin and Plavix Continue high intensity statin (9) Hypokalemia: Replace as needed (10) Transaminitis: Liver enzyme elevation now minimal (11) Developmental delay, profound: Will need to clarify baseline mentation [facility] Has a guardian who makes his decisions Plan DVT prophylaxis: Heparin Attestations 2 Medical Necessity Statement*: Patient requires ongoing hospitalization for enteral feeds support, serial labs, electrolyte correction, cardiology expertise, swallow evaluation, and supportive care. Coding Level of Care Code Acute Code for [facility] Diagnoses Acute respiratory failure J96.00 Dysphagia R13.10 Acute kidney injury N17.9 Hypernatremia E87.0 Congestive heart failure I50.9 Aspiration pneumonia J69.0 Atrial fibrillation with RVR I48.91 ST elevation myocardial infarction (STEMI) I21.3 Hypokalemia E87.6 Transaminitis R74.01 Developmental delay, profound R62.50
[2024-12-24 17:47] LABS: Glucose Point of Care 148 mg/dL (70-110)
[2024-12-24 18:05] LABS: Albumin Level 3.6 g/dL (3.5-5.2); Anion Gap 19.2 (5-19); Blood Urea Nitrogen 49 mg/dL (8-23); Calcium 9.7 mg/dL (8.5-10.5); Carbon Dioxide 25 mmol/L (22-29); Chloride 113 mmol/L (98-107); Creatinine Clr Calc Pharmacy 21.1492; Glomerular Filtration Rate 16.5 mL/min (90-130); Glucose 147 mg/dL (65-115); Potassium 3.2 mmol/L (3.5-5.1); Sodium 154 mmol/L (136-145)
[2024-12-24] MEDS: potassium chloride oral liq 20 mEq/15 mL UDC 40 MEQ PO (18:38)
[2024-12-24] MEDS: atorvastatin 40 mg Tablet 80 MG PO (20:29)
[2024-12-24] MEDS: acetaminophen 325 mg Tablet 650 MG PO (20:36)
[2024-12-25] VITALS (29 sets, daily range): BP systolic 128–163; BP diastolic 82–104; PULSE 81–108; RESP 16–37; TEMP 36.2–37.4; O2SAT 82–96
[2024-12-25] MEDS: heparin 5,000 unit/mL INJ 1 mL 5000 UNIT SUBCUT ×2 (05:24→15:33)
[2024-12-25] MEDS: pantoprazole 40 mg SDV IVP ×2 (05:24→18:28)
[2024-12-25 05:27] LABS: ABG PCO2 31.6 mmHg (35-45); Alveolar-Arterial Oxygen Gradi 6.8 mmHg (5-10); Arterial Blood Gas Hematocrit 28.1 % (42-52); Base Excess ABG 1.9 mmol/L (-2.0-2.0); Blood Gas Operator Identificat JDB; Blood Gas Sample Site Brachial, left; Blood Gas Sample Type Arterial; Carboxyhemoglobin 1.4 %THgb (0.4-20.1); HCO3 ABG 24.8 mmol/L (22-26); HGB O2 Sat 89.4 % (95-100); Ionized Calcium Level - ABG 1.3 mmol/L (1.1-1.4); Methemoglobin 1.2 % (0.4-1.5); Oxygen Device ROOM AIR; Oxygen Saturation ABG 91.7; PO2 ABG 57.6 mmHg (80.0-100.0); PO2 FiO2 Ratio Arterial Blood 274; Potassium Level - ABG 3.3 mmol/L (3.5-5.0); Total Hemoglobin 9.2 g/dL (14-18)
[2024-12-25 05:54] LABS: Basophils # 0.1 10^3/uL (0.0-0.1); Basophils % 0.7 %; Eosinophils # 0.3 10^3/uL (0.0-0.8); Hematocrit 31.3 % (37-53); Lymphocytes # 1.5 10^3/uL (0.8-4.8); Lymphocytes % 8.8 %; Mean Corpuscular HGB Conc 30.4 g/dL (30-55); Mean Corpuscular Hemoglobin 25.7 pg (27-33); Mean Corpuscular Volume 84.6 fl (82-101); Mean Platelet Volume 11.9 fL (7.4-10.4); Monocytes # 1.2 10^3/uL (0.2-0.9); Monocytes % 7.1 %; Neutrophils # 13.35 10^3/uL (1.8-7.7); Neutrophils % 80.2 %; Nucleated Red Blood Cells % 0 %; Platelet Count 282 10^3/cmm (157-399); Red Cell Distribution Width 19.2 % (12.1-15.1); White Blood Count 16.66 10^3/uL (3.29-11.43)
[2024-12-25 06:17] LABS: Alanine Aminotransferase 47 U/L (0-41); Albumin Level 3.6 g/dL (3.5-5.2); Alkaline Phosphatase 106 U/L (40-130); Anion Gap 19.6 (5-19); Aspartate Amino Transferase 40 U/L (0-40); Blood Urea Nitrogen 52 mg/dL (8-23); Calcium 9.5 mg/dL (8.5-10.5); Carbon Dioxide 25 mmol/L (22-29); Chloride 111 mmol/L (98-107); Globulin 2.9 g/dL (1.3-4.6); Glomerular Filtration Rate 17.6 mL/min (90-130); Glucose 119 mg/dL (65-115); Magnesium 2.3 mg/dL (1.7-2.3); Osmolality Calculated 329 mOsm/kg (285-295); Phosphorus 2.2 mg/dL (2.5-4.5); Potassium 3.6 mmol/L (3.5-5.1); Sodium 152 mmol/L (136-145); Total Bilirubin 0.3 mg/dL (0.15-1.2); Total Protein 6.5 g/dL (6.6-8.7)
[2024-12-25 07:41] LABS: Glucose Point of Care 114 mg/dL (70-110)
[2024-12-25] MEDS: ipratropium-albuterol 3 mL Neb INHALATION ×4 (08:29→19:25)
[2024-12-25] MEDS: aspirin 81 mg EC Tablet PO (10:18)
[2024-12-25] MEDS: citalopram 20 mg Tablet 10 MG PO (10:18)
[2024-12-25] MEDS: lactulose oral liq 20 gm/30 mL UDC PO (10:18)
[2024-12-25] MEDS: amiodarone 200 mg Tablet 400 MG PO ×2 (10:19→18:28)
[2024-12-25] MEDS: metoprolol tartrate 25 mg Tablet 12.5 MG PO ×2 (10:19→15:33)
[2024-12-25] MEDS: clopidogrel 75 mg Tablet PO (10:19)
[2024-12-25] MEDS: levETIRAcetam 1,000 mg/10 mL UDC 1000 MG NG-TUBE ×2 (10:30→20:30)
[2024-12-25] MEDS: fluconazole oral liq 40 mg/mL Syringe 100 MG PO (10:37)
--- NOTE | 2024-12-25 11:07 | PM.PN ---
Subjective Subjective: Speech therapy was able to assess patient yesterday with recommendation to remain NPO. This morning, clinically he is very similar to yesterday's exam. He is awake but does not follow commands. Remains NG tube fed. Remains on room air but breath sounds remain extremely coarse with underlying concern for continued aspiration. Patient unable to provide any further history review of underlying neurological status. Medications: Reviewed: Yes Vitals/I&O/Wt Last Vital Signs Temp 99.4 F 12/25/24 02:00 Pulse 100 12/25/24 08:00 Resp 18 12/25/24 08:00 BP 156/90 12/25/24 06:00 Pulse Ox 90 12/25/24 08:00 O2 Del Method Room Air 12/25/24 08:00 O2 Flow Rate 2 12/24/24 11:17 FiO2 6 12/22/24 20:00 12/24/24 12/25/24 12/25/24 22:59 06:59 14:59 Intake Total 1271 / 1421 1397 / 2818 Output Total 1000 / 1000 550 / 1550 Balance 271 / 421 847 / 1268 Weight last 48 hrs Weight 80.9 kg Weight 80 kg Physical Exam Narrative: General: Patient is awake. Disconjugate gaze. Less restless than yesterday's exam. Head: Poor dentition. Neck: No JVD. Cardiovascular: RRR. No gallops. Murmurs present. Lower extremities are edematous. Lungs: Breath sounds are diffusely coarse. Slightly tachypneic. On room air. Skin: No jaundice. No rashes. Abdomen: Normal bowel sounds, abdomen soft. Small scar likely old feeding tube site. Extremities: No cyanosis or clubbing. Musculoskeletal: No erythematous joints. Neurological: Marked contracture of right arm. No myoclonus. Urinary Catheter Management: Lamb: Cath Placed During This Visit: yes Reason for Continuing Indwelling Catheter: Accurate Measurement of Urinary Output in Critically Ill Patients Urinary Catheter Date of Insertion: 12/15/24 Urinary Catheter Time of Insertion: 22:30 Data 12/25/24 05:27 12/25/24 05:27 A&P Assessment and plan (1) Dysphagia: Remains dependent on NG tube feeds Speech therapy now following, there is a high likelihood he may need feeding tube Noted this morning he has a history of pulling out prior feeding tubes Ongoing speech therapy evaluation to help determine if feeding tube will be needed (2) Acute respiratory failure: Respiratory status has improved, he is now on room air Still with significant coarse breath sounds which may be related to his aspiration Monitor fluid status, he is currently fluid overloaded (3) Acute kidney injury: Renal function remains poor He remains fluid overloaded Hold off on diuresis due to hypernatremia May benefit from nephrology consult pending clinical course (4) Hypernatremia: Free water flushes were increased yesterday, will hold off on further increasing today due to concerns for aspiration risk for larger volumes Consider D5W, is extremely overloaded already Will continue trending labs for now monitor response to current treatment (5) Congestive heart failure: Strict I's and O's, daily weights Patient would benefit from diuresis, may consider after hyponatremia shows improvement (6) Aspiration pneumonia: Complete antibiotics Continue aspiration precautions Feeding tube evaluation as above (7) Atrial fibrillation with RVR: Continue amiodarone loading Continue metoprolol tartrate Not on full dose anticoagulation due to history of GI bleed Continues telemetry monitoring (8) ST elevation myocardial infarction (STEMI): Cardiology following, appreciate recommendations Continue DAPT with aspirin and Plavix Continue high intensity statin (9) Hypokalemia: Replace as needed (10) Transaminitis: Liver enzyme elevation now minimal, monitor as needed (11) Developmental delay, profound: Mentation and likely approaching his normal baseline Has a guardian who makes his decisions Plan DVT prophylaxis: Heparin Attestations Medical Necessity Statement*: Patient requires ongoing hospitalization for IV antibiotics, management of enteral feeds, electrolyte management, speech therapy, and supportive care. Coding Level of Care Code Acute Code for [facility] Fwd Diagnoses Dysphagia R13.10 Acute respiratory failure J96.00 Acute kidney injury N17.9 Hypernatremia E87.0 Congestive heart failure I50.9 Aspiration pneumonia J69.0 Atrial fibrillation with RVR I48.91 ST elevation myocardial infarction (STEMI) I21.3 Hypokalemia E87.6 Transaminitis R74.01 Developmental delay, profound R62.50
[2024-12-25 11:47] LABS: Glucose Point of Care 161 mg/dL (70-110)
--- NOTE | 2024-12-25 13:09 | P.PN_ITS ---
<Statement entered by Anuel Freitas M.D - 12/25/24 21:03> Patient was evaluated and cared for in conjunction with an advanced practice practitioner. I personally examined the patient and reviewed the chart and all pertinent data including imaging, telemetry, and laboratory results. I discussed the patient in detail with the advanced practice practitioner. Please see their note for complete progress note, results and agreed upon plan of care for the patient. GENERAL: Patient is drowsy HEART: Regular S1 and S2 LUNGS: Diminished air entry bilaterally EXTREMITIES: Lower extremities with no edema Subjective 2 Subjective: Patient is awake, does not follow any commands, history of severe developmental delay. He is receiving tube feeding nutrition. Not on any IV infusions currently receiving medications via NG. Blood pressures in the 140s to 150s over 90s, slightly tachycardic in sinus rhythm. Metoprolol tartrate currently at 12.5 mg twice daily will uptitrate to 25 mg twice daily. No significant changes on exam from yesterday. Vitals/I&O/Wt Last Vital Signs Temp 99.4 F 12/25/24 02:00 Pulse 100 12/25/24 11:15 Resp 18 12/25/24 11:15 BP 156/90 12/25/24 06:00 Pulse Ox 93 12/25/24 11:15 O2 Del Method Room Air 12/25/24 11:15 O2 Flow Rate 2 12/24/24 11:17 FiO2 6 12/22/24 20:00 12/24/24 12/25/24 12/25/24 22:59 06:59 14:59 Intake Total 1271 / 2818 1397 / 2818 Output Total 1000 / 1550 550 / 1550 Balance 271 / 1268 847 / 1268 Weight last 48 hrs Weight 178 lb 5.663 oz Weight 176 lb 5.917 oz Physical Exam 2 Resp: COMMON NORMALS: normal respiratory effort and No use of accessory muscles EFFORT & INSPECTION: Yes symmetric chest movement AUSCULTATION: r honchi upper bilaterally and diminished lung sounds bilateral in the lower lung shell Cardio: COMMON NORMALS: regular rate, regular rhythm, S1 normal heart sound present, S2 normal heart sound present and No murmurs present (Cardio) RATE: regular rate RHYTHM: regular rhythm HEART SOUNDS: S1 normal heart sound present and S2 normal heart sound present Extremity: GENERAL: Yes edema (1+ pitting pedal edema ) Urinary Catheter Management: Lamb: Cath Placed During This Visit: yes Reason for Continuing Indwelling Catheter: Accurate Measurement of Urinary Output in Critically Ill Patients Urinary Catheter Date of Insertion: 12/15/24 Urinary Catheter Time of Insertion: 22:30 Data 12/25/24 05:27 12/25/24 05:27 A&P Assessment and plan (1) ST elevation myocardial infarction (STEMI): (2) Congestive heart failure: Plan No significant changes from yesterday, blood pressure elevated today. Will uptitrate metoprolol tartrate 25 mg twice daily. Continue amiodarone 400 mg twice daily, Plavix, aspirin, atorvastatin. LVEF 20%, fluid balance is positive, urine output 1550 so far today, may require dose of Lasix soon. Attestations 2 Medical Necessity Statement*: STEMI, systolic CHF Coding Level of Care Code Acute Code for [facility] Diagnoses ST elevation myocardial infarction (STEMI) I21.3 Congestive heart failure I50.9
[2024-12-25 17:52] LABS: Glucose Point of Care 117 mg/dL (70-110)
--- NOTE | 2024-12-25 19:41 | PC.NURSE ---
Shift summary: Pt rested in bed throughout the shift. He makes growling noises. Lung sounds difficult to auscultate due to his vocalization, rhonci noted. At first coarse crackles noted. Chest pulmo therapy done today. VSS Sinus rhythm noted on monitor. He has A NG with Nepro tube feedings and flushes. He is tolerating it well as his residual this am was only 40. He had several loose. liquid BMS, one right after the other today. During this he coughed up copious secretions, so much so suctioning was provided. He wiggles and thrashes his head side to side, appears he is trying to get rid of the NG. he is able to grasp side of bed with his right hand, he was pulling himself over in the bed doing that. 625 ml of pale yellow urine noted.
[2024-12-25] MEDS: atorvastatin 40 mg Tablet 80 MG PO (20:29)
[2024-12-25] MEDS: metoprolol tartrate 25 mg Tablet PO (20:29)
[2024-12-26] VITALS (29 sets, daily range): BP systolic 88–145; BP diastolic 58–94; PULSE 81–120; RESP 16–38; TEMP 36.2–37.4; O2SAT 89–95
[2024-12-26 00:04] LABS: Glucose Point of Care 128 mg/dL (70-110)
[2024-12-26 04:40] LABS: Basophils # 0.1 10^3/uL (0.0-0.1); Basophils % 0.6 %; Eosinophils # 0.2 10^3/uL (0.0-0.8); Eosinophils % 1.2 %; Lymphocytes # 1.4 10^3/uL (0.8-4.8); Lymphocytes % 8.6 %; Mean Corpuscular Hemoglobin 26.2 pg (27-33); Mean Corpuscular Volume 87.2 fl (82-101); Mean Platelet Volume 12.5 fL (7.4-10.4); Monocytes # 0.8 10^3/uL (0.2-0.9); Monocytes % 5.3 %; Neutrophils # 13.08 10^3/uL (1.8-7.7); Nucleated Red Blood Cells % 0 %; Platelet Count 251 10^3/cmm (157-399); Red Blood Count 3.21 10^6/uL (3.85-5.65); Red Cell Distribution Width 19.6 % (12.1-15.1); White Blood Count 15.76 10^3/uL (3.29-11.43)
[2024-12-26 05:04] LABS: Alanine Aminotransferase 44 U/L (0-41); Albumin Level 3.1 g/dL (3.5-5.2); Alkaline Phosphatase 108 U/L (40-130); Anion Gap 17.1 (5-19); Aspartate Amino Transferase 41 U/L (0-40); Blood Urea Nitrogen 52 mg/dL (8-23); Calcium 9.3 mg/dL (8.5-10.5); Carbon Dioxide 25 mmol/L (22-29); Chloride 109 mmol/L (98-107); Creatinine Clr Calc Pharmacy 27.1093; Globulin 3.7 g/dL (1.3-4.6); Glomerular Filtration Rate 21.8 mL/min (90-130); Glucose 123 mg/dL (65-115); Magnesium 2.2 mg/dL (1.7-2.3); Osmolality Calculated 321 mOsm/kg (285-295); Phosphorus 2.5 mg/dL (2.5-4.5); Potassium 3.1 mmol/L (3.5-5.1); Sodium 148 mmol/L (136-145); Total Bilirubin 0.3 mg/dL (0.15-1.2); Total Protein 6.8 g/dL (6.6-8.7)
[2024-12-26] MEDS: pantoprazole 40 mg SDV IVP ×2 (05:26→17:24)
[2024-12-26] MEDS: heparin 5,000 unit/mL INJ 1 mL 5000 UNIT SUBCUT ×2 (05:26→16:51)
--- NOTE | 2024-12-26 05:32 | XRR_ITS ---
PROCEDURE INFORMATION: Exam: XR Chest Exam date and time: 12/26/2024 5:38 AM Age: 69 years old Clinical indication: Device placement; Ng tube; Additional info: Ng displacement/aspiration TECHNIQUE: Imaging protocol: Radiologic exam of the chest. Views: 1 view. COMPARISON: CR (CHEST, ) 12/24/2024 4:39 AM FINDINGS: Tubes, catheters and devices: No visible gastric tube. Right IJ catheter terminates near the atriocaval junction. Lungs: But persistent infiltrate in the left lower lobe. Minimal infiltrate in the right upper lobe. Pleural spaces: Unremarkable. No pleural effusion. No pneumothorax. Heart/Mediastinum: Unremarkable. No cardiomegaly. Bones/joints: Unremarkable. XR/XR chest 1V portable [id number] IMPRESSION: Nasogastric tube is visible.
--- NOTE | 2024-12-26 05:33 | PC.NURSE ---
Entered room, noted that NG was displaced by approx 8 cm, lungs far more congested than previous assessments, oxygen saturation 90-92 on room air. Stopped tube feeding, NG tube removed, contacted Dr. Saavedra and new order received for stat chest x-ray.
[2024-12-26 05:43] LABS: Glucose Point of Care 132 mg/dL (70-110)
--- NOTE | 2024-12-26 08:00 | PC.NURSE ---
Assessment: Pt vocalizes 'growls' frequently, makes lung auscultating difficult. On inspiration lungs auscultated clear. it sounds like rhonciand/or his 'growling' on expiration.
[2024-12-26] MEDS: ipratropium-albuterol 3 mL Neb INHALATION ×4 (09:35→20:13)
[2024-12-26] MEDS: albumin 25 G/100 ML BAG 60 G IV (10:00)
--- NOTE | 2024-12-26 11:42 | P.PN_ITS ---
Subjective 2 Subjective: Overnight, patient removed his NG tube. Thus far, he is not making any significant progress with speech therapy regarding improvements in swallow function. He is going to need ongoing enteral feeds. Patient discussed with general surgery, Dr. Horan. He reports he will be able to help us with the NG tube placement today. He also reports he is not a candidate for PEG tube due to his anatomy. He recommended jejunostomy tube placement which is reportedly not available here at [facility]. I called and spoke to his legal guardian Nic Bryson. Gave him update regarding extubation, improved respiratory status and current situation regarding feeding challenges. It seems my only option is to transfer this patient to facility that can accommodate his needs. His legal guardian and recommended we start with [facility] as to keep him in the general region of his senior care. Legal guardian has no preference regarding hospital. Otherwise patient's mentation is largely unchanged from the prior days. He is awake but encephalopathic. Suspect from collateral information given his mentation is likely close to baseline. Medications: Reviewed: Yes Vitals/I&O/Wt Last Vital Signs Temp 99.3 F 12/26/24 04:00 Pulse 91 12/26/24 11:29 Resp 18 12/26/24 11:29 BP 122/76 12/26/24 06:00 Pulse Ox 94 12/26/24 11:29 O2 Del Method Room Air 12/26/24 11:29 O2 Flow Rate 2 12/24/24 11:17 FiO2 6 12/22/24 20:00 12/25/24 12/26/24 12/26/24 22:59 06:59 14:59 Intake Total 1548 / 1548 Output Total 400 / 400 Balance 1148 / 1148 Weight last 48 hrs Weight 82.5 kg Weight 80.9 kg Physical Exam 2 Narrative: General: Patient is awake. Disconjugate gaze. Slightly restless. Head: Poor dentition. Neck: No JVD. Cardiovascular: RRR. No gallops. Murmurs present. Lower extremities are edematous. Lungs: Breath sounds are diffusely coarse. Tachypneic.. On room air. Skin: No jaundice. No rashes. Abdomen: Normal bowel sounds, abdomen soft. Small scar likely old feeding tube site. Extremities: No cyanosis or clubbing. Musculoskeletal: No erythematous joints. Neurological: Marked contracture of right arm. No myoclonus. Urinary Catheter Management: Lamb: Cath Placed During This Visit: yes Reason for Continuing Indwelling Catheter: Accurate Measurement of Urinary Output in Critically Ill Patients Urinary Catheter Date of Insertion: 12/15/24 Urinary Catheter Time of Insertion: 22:30 Data 12/26/24 04:11 12/26/24 04:11 A&P Assessment and plan (1) Dysphagia: NG tube removed overnight, we will plan to replace this today with general surgery assistance Continue speech therapy Discussed with general surgery, not a candidate for PEG tube, recommend jejunostomy tube placement which is not available at [facility] Legal guardian updated We will start exploring transfer options starting with [facility] (2) Acute kidney injury: Renal function slowly improving, creatinine 2.9 Albumin dose x 1 Will plan to restart enteral feeds today, if not possible we will consider IV maintenance fluids (3) Hypernatremia: Continue current free water flushes Sodium slowly improving, 148 (4) Congestive heart failure: Strict I's and O's, daily weights Continue beta-dawson (5) Aspiration pneumonia: Status post antibiotics Continue aspiration precautions Feeding tube issue as above (6) Atrial fibrillation with RVR: Continue amiodarone loading once tube is resumed Continue metoprolol tartrate, IV formulation ordered until NG tube is replaced Not on full dose anticoagulation due to history of GI bleed Continues telemetry monitoring (7) ST elevation myocardial infarction (STEMI): Cardiology following, appreciate recommendations Continue DAPT with aspirin and Plavix, may need to transition to per rectum route if NG tube is not replaced today Continue high intensity statin (8) Hypokalemia: Replace as needed (9) Transaminitis: Liver enzyme elevation now minimal, monitor as needed (10) Developmental delay, profound: Mentation and likely approaching his normal baseline Has a guardian who makes his decisions, spoke with him today (11) Acute respiratory failure: Resolved Patient on room air Remains at risk for recurrent aspiration Plan DVT prophylaxis: Heparin Attestations 2 Medical Necessity Statement*: Patient requires ongoing hospitalization for supplemental enteral feeding support, NG placement, further feeding tube evaluation, electrolyte management, and supportive care. Coding Level of Care Code Acute Code for [facility] Diagnoses Dysphagia R13.10 Acute kidney injury N17.9 Hypernatremia E87.0 Congestive heart failure I50.9 Aspiration pneumonia J69.0 Atrial fibrillation with RVR I48.91 ST elevation myocardial infarction (STEMI) I21.3 Hypokalemia E87.6 Transaminitis R74.01 Developmental delay, profound R62.50 Acute respiratory failure J96.00
[2024-12-26] MEDS: levETIRAcetam 1,000 MG/100 ML PREMIX 400 MG IV (12:54)
[2024-12-26] MEDS: metoprolol tartrate 1 mg/1 mL SDV 5 mL 2.5 MG IVP ×2 (12:54→17:24)
[2024-12-26] MEDS: lidocaine 1% 5 ML in potassium chloride premix 100 ML 26.25 ML IV (12:56)
--- NOTE | 2024-12-26 13:19 | P.PN_ITS ---
<Statement entered by Anuel Freitas M.D - 12/26/24 20:42> Patient was evaluated and cared for in conjunction with an advanced practice practitioner. I personally reviewed the chart and all pertinent data including imaging, telemetry, and laboratory results. I discussed the patient in detail with the advanced practice practitioner. Please see their note for complete progress note, results and agreed upon plan of care for the patient. Subjective 2 Subjective: Patient is awake, does not follow any commands, history of severe developmental delay. No significant changes overnight, stable from cardiovascular perspective. Patient removed his NG tube overnight. Hospitalist service is working on getting patient transferred to a facility that can provide jejunostomy placement. Vitals/I&O/Wt Last Vital Signs Temp 99.3 F 12/26/24 04:00 Pulse 91 12/26/24 11:29 Resp 18 12/26/24 11:29 BP 122/76 12/26/24 06:00 Pulse Ox 94 12/26/24 11:29 O2 Del Method Room Air 12/26/24 11:29 O2 Flow Rate 2 12/24/24 11:17 FiO2 6 12/22/24 20:00 12/25/24 12/26/24 12/26/24 22:59 06:59 14:59 Intake Total 1548 / 1548 Output Total 400 / 400 Balance 1148 / 1148 Weight last 48 hrs Weight 181 lb 14.102 oz Weight 178 lb 5.663 oz Physical Exam 2 Resp: COMMON NORMALS: normal respiratory effort AUSCULTATION: rhonchi Cardio: COMMON NORMALS: regular rate, regular rhythm, S1 normal heart sound present and S2 normal heart sound present RATE: regular rate RHYTHM: r egular rhythm HEART SOUNDS: S1 normal heart sound present and S2 normal heart sound present Extremity: GENERAL: Yes edema (right hand and right leg/foot 1-2 + pitting edema ) Urinary Catheter Management: Lamb: Cath Placed During This Visit: yes Reason for Continuing Indwelling Catheter: Accurate Measurement of Urinary Output in Critically Ill Patients Urinary Catheter Date of Insertion: 12/15/24 Urinary Catheter Time of Insertion: 22:30 Data 12/26/24 04:11 12/26/24 04:11 A&P Assessment and plan (1) ST elevation myocardial infarction (STEMI): (2) Atrial fibrillation with RVR: (3) Congestive heart failure: Plan Blood pressure better controlled with higher dose of metoprolol, continue metoprolol tartrate 25 mg twice daily. Continue aspirin, Plavix, atorvastatin, amiodarone-can reduce to 400 mg daily on 12/28/2024. Attestations 2 Medical Necessity Statement*: Per hospitalist Coding Level of Care Code Acute Code for [facility] Diagnoses ST elevation myocardial infarction (STEMI) I21.3 Atrial fibrillation with RVR I48.91 Congestive heart failure I50.9
--- NOTE | 2024-12-26 15:20 | P.PN_ITS ---
Subjective 2 Subjective: This 69-year-old male with multiple medical core morbidities who is under guardianship of the state who presented with myocardial infarction and had a cardiac catheterization. Was involved in his care for an NG tube placement as this was technically difficult. I was asked to reevaluate him for replacement of NG tube has this cath dislodgment to evaluate him for the possibility of PEG tube placement for long-term nutrition. Vitals/I&O/Wt Last Vital Signs Temp 99.3 F 12/26/24 04:00 Pulse 96 12/26/24 15:19 Resp 16 12/26/24 15:17 BP 122/76 12/26/24 06:00 Pulse Ox 93 12/26/24 15:17 O2 Del Method Room Air 12/26/24 15:17 O2 Flow Rate 2 12/24/24 11:17 FiO2 6 12/22/24 20:00 12/26/24 12/26/24 12/26/24 06:59 14:59 22:59 Intake Total 1548 / 1548 Output Total 400 / 400 Balance 1148 / 1148 Weight last 48 hrs Weight 181 lb 14.102 oz Weight 178 lb 5.663 oz Physical Exam 2 Narrative: Patient is alert, follows basic commands, and moment of my evaluation speech at the bedside and he was able to swallow. Urinary Catheter Management: Lamb: Cath Placed During This Visit: yes Reason for Continuing Indwelling Catheter: Accurate Measurement of Urinary Output in Critically Ill Patients Urinary Catheter Date of Insertion: 12/15/24 Urinary Catheter Time of Insertion: 22:30 Data 12/26/24 04:11 12/26/24 04:11 A&P Assessment and plan (1) Dysphagia: Plan Is a 69-year-old male with multiple comorbidities who evaluating for enteral feeding access. At the moment of my evaluation patient was receiving speech therapy swallow this, and this time without NG tube being he was able to pass tolerate pudding. Patient is tolerating diet there is no need for replacement of NG tube he can receive diet as recommended by the speech pathologist. Regarding the possibility of a percutaneous gastrostomy tube. I Review the imaging of the patient, a percutaneous gastrostomy or even laparoscopic or open gastrostomy is not an option in this patient as he has a extremely large hiatal hernia that contains close to 100% of the stomach inside of the chest making surgical feeding access to the stomach technically impossible. The only additional option for enteral feeding from the surgical standpoint in this patient would be a feeding jejunostomy, patient apparently had already had a feeding jejunostomy in the past as he does have a scar consistent with this. Unfortunately feeding jejunostomy is associated with very high complication rate of mortality rate due to complications. In the case of this patient the chances of complication are even higher as he is currently receiving therapeutic antiplatelet therapy due to recently cardiac intervention, this will make any kind of surgical intervention for high risk procedure for bleeding. Therefore the ideal scenario is for him to receive PO diet. That being said, a re-do laparoscopic or robotic feeding jejunostomy could be a feasible option for this patient as a minimally invasive nature of the procedures will minimize the risk of bleeding, this will require higher level of expertise as the patient had already had a jejunostomy and therefore the small bowel is attached to anterior abdominal wall. If patient eventually has failure to thrive and requires this enteral access he may require evaluation at higher level of care. Attestations 2 Medical Necessity Statement*: per medical team Coding Level of Care Code Acute Code for [facility] Diagnoses Dysphagia R13.10
[2024-12-26 16:37] LABS: Glucose Point of Care 117 mg/dL (70-110)
[2024-12-26] MEDS: amiodarone 200 mg Tablet 400 MG PO (17:24)
--- NOTE | 2024-12-26 18:00 | PC.NURSE ---
While repositioning and providing pericare, pt went bradycardic 49-55 for about 4 seconds. He was briefly apneic as well, then he coughed, gasped, we patted his back. No more episodes noted. VSS at this point. O2 sats 97%. No further actions necessary.
--- NOTE | 2024-12-26 19:57 | PC.NURSE ---
Shift summary: Pt remains resting in bed. He is much more active today. He is throwing pillows away from his bed, scratching his nose and pulling his self around in bed a little. He shakes his hand around at blood sugar checks trying to get away from it. Blood sugars stable. Due to no NG this am, Keppra and metorpolol changed to IV. He received 40mEq of potassium and 1 bag of albumin this am. He did much better with his speech eval but he is still aspiration risk. He was started on Dysphagia 4 with extremely thickened liquids, Which he enjoyed at dinner. He ate half. His pills that can be are crushed and put in pudding. He had 550ml of urine output and only 1 small loose BM today. His wound on his sacrum is improving.
[2024-12-26] MEDS: metoprolol tartrate 25 mg Tablet PO (20:00)
[2024-12-26] MEDS: atorvastatin 40 mg Tablet 80 MG PO (20:00)
[2024-12-26] MEDS: levETIRAcetam 1,000 mg/10 mL UDC 1000 MG PO (20:00)
--- NOTE | 2024-12-26 21:08 | PC.NURSE ---
Pt converted from SR to a flutter with RVR at approx 1900. EKG done, scheduled meds administered. Contacted Dr. Saavedra to make aware at 2099, pt converted back to sinus rhythm with rate in 90's at 210, no new orders.
[2024-12-27] VITALS (27 sets, daily range): BP systolic 117–143; BP diastolic 70–105; PULSE 82–101; RESP 17–38; O2SAT 91–98
[2024-12-27 00:10] LABS: Glucose Point of Care 132 mg/dL (70-110)
[2024-12-27] MEDS: heparin 5,000 unit/mL INJ 1 mL 5000 UNIT SUBCUT ×2 (05:08→17:37)
[2024-12-27] MEDS: pantoprazole 40 mg SDV IVP ×2 (05:08→18:52)
[2024-12-27 05:29] LABS: Basophils # 0.1 10^3/uL (0.0-0.1); Basophils % 0.8 %; Eosinophils # 0.3 10^3/uL (0.0-0.8); Eosinophils % 2.4 %; Hematocrit 28.8 % (37-53); Lymphocytes # 1.7 10^3/uL (0.8-4.8); Lymphocytes % 13.6 %; Mean Corpuscular HGB Conc 29.5 g/dL (30-55); Mean Corpuscular Volume 88.1 fl (82-101); Mean Platelet Volume 12.4 fL (7.4-10.4); Monocytes # 0.8 10^3/uL (0.2-0.9); Neutrophils # 9.65 10^3/uL (1.8-7.7); Neutrophils % 75.7 %; Nucleated Red Blood Cells % 0.2 %; Platelet Count 257 10^3/cmm (157-399); Red Blood Count 3.27 10^6/uL (3.85-5.65); Red Cell Distribution Width 19.9 % (12.1-15.1); White Blood Count 12.76 10^3/uL (3.29-11.43)
[2024-12-27 05:38] LABS: Glucose Point of Care 118 mg/dL (70-110)
[2024-12-27 05:50] LABS: Albumin Level 3.5 g/dL (3.5-5.2); Anion Gap 19.5 (5-19); Blood Urea Nitrogen 50 mg/dL (8-23); Calcium 9.1 mg/dL (8.5-10.5); Carbon Dioxide 24 mmol/L (22-29); Chloride 111 mmol/L (98-107); Creatinine Clr Calc Pharmacy 26.0164; Glucose 106 mg/dL (65-115); Magnesium 2.4 mg/dL (1.7-2.3); Phosphorus 3.2 mg/dL (2.5-4.5); Potassium 3.5 mmol/L (3.5-5.1); Sodium 151 mmol/L (136-145)
[2024-12-27] MEDS: ipratropium-albuterol 3 mL Neb INHALATION ×3 (08:06→20:38)
--- NOTE | 2024-12-27 09:05 | PM.PN ---
Subjective Subjective: Patient was able started on modified diet yesterday from speech therapy. Transfer was therefore held off. Monitoring oral intake closely. They are still interested and concerned that he continues to aspirate. Still hypernatremic and they are persistent concern patient may not be able to consume enough free water to sustain his metabolic status. Will continue to monitor closely. Otherwise, his mentation seems slightly improved this morning. He is calm. He is unable to find any other history which is consistent with his underlying baseline neurological function. Medications: Reviewed: Yes Vitals/I&O/Wt Last Vital Signs Temp 98.8 F 12/26/24 20:00 Pulse 93 12/27/24 08:11 Resp 18 12/27/24 08:00 BP 130/79 12/27/24 06:00 Pulse Ox 96 12/27/24 08:00 O2 Del Method Room Air 12/27/24 08:00 O2 Flow Rate 2 12/26/24 20:00 FiO2 6 12/22/24 20:00 12/26/24 12/27/24 12/27/24 22:59 06:59 14:59 Intake Total 20 / 220 480 / 700 Output Total 550 / 550 350 / 900 Balance -530 / -330 130 / -200 Weight last 48 hrs Weight 79.5 kg Weight 82.5 kg Physical Exam Narrative: General: Patient is awake. Disconjugate gaze. Calm. Head: Poor dentition. Neck: No JVD. Cardiovascular: RRR. No gallops. Murmurs present. Lower extremities remain edematous. Lungs: Breath sounds are diffusely coarse. On room air. Skin: No jaundice. No rashes. Abdomen: Normal bowel sounds, abdomen soft. Small scar likely old feeding tube site. Extremities: No cyanosis or clubbing. Musculoskeletal: No erythematous joints. Neurological: Marked contracture of right arm. No myoclonus. Urinary Catheter Management: Lamb: Cath Placed During This Visit: yes Reason for Continuing Indwelling Catheter: Accurate Measurement of Urinary Output in Critically Ill Patients Urinary Catheter Date of Insertion: 12/15/24 Urinary Catheter Time of Insertion: 22:30 Data 12/27/24 05:04 12/27/24 05:04 A&P Assessment and plan (1) Dysphagia: Continue speech therapy, monitoring intake closely Discussed with general surgery, not a candidate for PEG tube, recommend jejunostomy tube placement which is not available at [facility] if tube feed is needed Transfer held off given improvement with speech therapy (2) Acute kidney injury: Renal indices remain elevated; 50/3.0 Monitoring intake (3) Hypernatremia: Continue trending, monitoring patient's ability to intake free water currently (4) Congestive heart failure: Strict I's and O's, daily weights Continue beta-dawson (5) Aspiration pneumonia: Status post antibiotics Continue aspiration precautions Feeding tube issue as above (6) Atrial fibrillation with RVR: Continue amiodarone loading Continue metoprolol tartrate Not on full dose anticoagulation due to history of GI bleed Continues telemetry monitoring (7) ST elevation myocardial infarction (STEMI): Cardiology following, appreciate recommendations Continue DAPT and high intensity statin (8) Hypokalemia: Replace as needed (9) Transaminitis: Monitor as needed (10) Developmental delay, profound: Mentation seems at baseline Has a guardian who makes his decisions, spoke with him today (11) Acute respiratory failure: Resolved Patient on room air Remains at risk for recurrent aspiration Plan DVT prophylaxis: Heparin Attestations Medical Necessity Statement*: Patient requires ongoing hospitalization for supplemental speech therapy, ongoing feeding tube need assessment, electrolyte management, and supportive care. Coding Level of Care Code Acute Code for [facility] Diagnoses Dysphagia R13.10 Acute kidney injury N17.9 Hypernatremia E87.0 Congestive heart failure I50.9 Aspiration pneumonia J69.0 Atrial fibrillation with RVR I48.91 ST elevation myocardial infarction (STEMI) I21.3 Hypokalemia E87.6 Transaminitis R74.01 Developmental delay, profound R62.50 Acute respiratory failure J96.00
--- NOTE | 2024-12-27 10:44 | PC.NURSE ---
Morning medications non-administered due to patient aspirating. Dr. Claudio bernard.
--- NOTE | 2024-12-27 11:10 | P.PN_ITS ---
<Statement entered by Anuel Freitas M.D - 12/27/24 21:48> Patient was cared for in conjunction with an advanced practice practitioner. I personally reviewed the chart and all pertinent data including imaging, telemetry, and laboratory results. I discussed the patient in detail with the advanced practice practitioner. Please see their note for complete progress note, results and agreed upon plan of care for the patient. Subjective 2 Subjective: Unchanged overnight from a cardiac perspective. Speech therapy is attempting oral feeding. Vitals/I&O/Wt Last Vital Signs Temp 98.8 F 12/26/24 20:00 Pulse 96 12/27/24 10:00 Resp 25 H 12/27/24 09:00 BP 123/70 12/27/24 10:00 Pulse Ox 95 12/27/24 10:00 O2 Del Method Room Air 12/27/24 08:00 O2 Flow Rate 2 12/26/24 20:00 FiO2 6 12/22/24 20:00 12/26/24 12/27/24 12/27/24 22:59 06:59 14:59 Intake Total 125 / 805 480 / 805 Output Total 550 / 900 350 / 900 Balance -425 / -95 130 / -95 Weight last 48 hrs Weight 175 lb 4.28 oz Weight 181 lb 14.102 oz Physical Exam 2 Resp: AUSCULTATION: rhonchi and diminished lung sounds bilateral in the lower lung shell Cardio: COMMON NORMALS: regular rate, regular rhythm, S1 normal heart sound present and S2 normal heart sound present RATE: regular rate RHYTHM: r egular rhythm HEART SOUNDS: S1 normal heart sound present and S2 normal heart sound present Extremity: GENERAL: Yes edema (trace to 1+ pitting edema bilat LE ) Urinary Catheter Management: Lamb: Cath Placed During This Visit: yes Reason for Continuing Indwelling Catheter: Accurate Measurement of Urinary Output in Critically Ill Patients Urinary Catheter Date of Insertion: 12/15/24 Urinary Catheter Time of Insertion: 22:30 Data 12/27/24 05:04 12/27/24 05:04 A&P Assessment and plan (1) ST elevation myocardial infarction (STEMI): (2) Atrial fibrillation with RVR: (3) Congestive heart failure: Plan Good blood pressure control, continue metoprolol tartrate 25 mg twice daily. Continue aspirin, Plavix, atorvastatin, amiodarone. Reduce to 400 mg daily on 12/28/2024. Attestations 2 Medical Necessity Statement*: Per hospitalist Coding Level of Care Code Acute Code for [facility] Fwd Diagnoses ST elevation myocardial infarction (STEMI) I21.3 Atrial fibrillation with RVR I48.91 Congestive heart failure I50.9
--- NOTE | 2024-12-27 11:19 | XR_ITS ---
WS: [id number] Exam: XR chest 1V portable [id number] Date/Time of Exam: 12/27/2024 11:42 AM Reason For Exam: NG tube placement Comparison 12/26/2024. An enteric tube is visualized and ends just below the diaphragm. The sideport of the tube is above th e diaphragm about 10 cm. The proximal aspect of the tube deviates to the LEFT of midline. The exact l ocation of this tube is undetermined. There is infiltrate in the LEFT lower lobe. There is also diffu se infiltrate in the RIGHT lung. No pneumothorax or pleural effusion. Mild cardiac enlargement. The m ediastinum is normal in contour. Previously noted RIGHT IJ catheter has been removed. XR/XR chest 1V portable [id number] IMPRESSION: 1. Enteric tube noted in the midline. The tip of the tube extends below the antonio phragm but the exact location is undetermined. The sideport of the tube is in t he region of the lower chest. Proximally the tube deviates to the LEFT of midli ne. It cannot be determined if this tube is in the GI tract. 2. Infiltrates in the left base and also throughout the RIGHT lung essentially unchanged. Mild cardiac enlargement.
--- NOTE | 2024-12-27 12:03 | P.MISC_ITS ---
Miscellaneous Note Purpose of Documentation: Update on patient care Note: Patient was unable to tolerate p.o. diet, showing signs of aspiration. NG tube was replaced and confirmed with x-ray of the abdomen. At this point recommendation will be for the patient to have a feeding jejunostomy for long- term nutrition. We do not have any feeding jejunostomy tubes in our institution, also the only option I can offer him is an open feeding jejunostomy which will put him at a high risk for mortality as he is receiving therapeutic antiplatelet therapy. There best option for the patient under this circumstances will be to proceed with a laparoscopic or robotic placed feeding jejunostomy. This can likely be offered at higher level of care, plan has been discussed with medical team.
[2024-12-27 17:24] LABS: Albumin Level 3.7 g/dL (3.5-5.2); Anion Gap 22.1 (5-19); Blood Urea Nitrogen 47 mg/dL (8-23); Calcium 9.1 mg/dL (8.5-10.5); Carbon Dioxide 23 mmol/L (22-29); Chloride 111 mmol/L (98-107); Creatinine Clr Calc Pharmacy 25.1772; Glomerular Filtration Rate 20.2 mL/min (90-130); Glucose 99 mg/dL (65-115); Phosphorus 3.3 mg/dL (2.5-4.5); Potassium 3.1 mmol/L (3.5-5.1); Sodium 153 mmol/L (136-145)
[2024-12-27] MEDS: amiodarone 200 mg Tablet 400 MG PO (17:37)
--- NOTE | 2024-12-27 19:58 | XRR_ITS ---
PROCEDURE INFORMATION: Exam: XR Chest Exam date and time: 12/27/2024 8:12 PM Age: 69 years old Clinical indication: Device placement; Ng tube; Additional info: Ng tube verification TECHNIQUE: Imaging protocol: Radiologic exam of the chest. Views: 1 view. COMPARISON: CR (CHEST, ) 27/12/2024 11:47 FINDINGS: Tubes, catheters and devices: High position of feeding tube, with distal tip at the level of the distal esophagus. Lungs: Low lung volumes. Persistent increased lung markings and hazy airspace opacities throughout both lungs. Pleural spaces: Unremarkable. No pleural effusion. No pneumothorax. Heart/Mediastinum: Stable cardiomediastinal silhouette. Bones/joints: Unremarkable. XR/XR chest 1V portable [id number] IMPRESSION: 1. High position of feeding tube, with distal tip at the level of the distal esophagus. Advancement recommended. 2. Nonspecific imaging findings, which can be seen with pulmonary congestion or pneumonia. Clinical correlation recommended.
--- NOTE | 2024-12-27 20:27 | PM.MISC ---
Miscellaneous Note Purpose of Documentation: Update on patient care Note: NG tube position verified with Xray. the distal tip is at the level of the hiatal hernia. Tube is cleared to be used for medications and trickle feeds and advanced after residual check.
--- NOTE | 2024-12-27 21:32 | PC.NURSE ---
During shift change, Upon patient evaluations, the nurses noted that patient had NG in hand and had been pulling on it. Contacted Dr. Horan about NG tube. Requested that we order an xray to confirm placement before medication is to be administered. Placement confirmed by Physician . Also stated that before we administer tube feedings if required that we start the tube feeding rate at 10 cc then check residuals Q4H. If Residual less than 25 then continue to increase rate in small increments until we reach target feed rate.
[2024-12-27] MEDS: metoprolol tartrate 25 mg Tablet PO (22:11)
[2024-12-27] MEDS: atorvastatin 40 mg Tablet 80 MG PO (22:11)
[2024-12-27] MEDS: levETIRAcetam 1,000 mg/10 mL UDC 1000 MG PO (22:11)
[2024-12-28] VITALS (28 sets, daily range): BP systolic 115–152; BP diastolic 71–113; PULSE 51–96; RESP 15–31; TEMP 36.5; O2SAT 92–96
[2024-12-28 00:11] LABS: Glucose Point of Care 109 mg/dL (70-110)
[2024-12-28] MEDS: heparin 5,000 unit/mL INJ 1 mL 5000 UNIT SUBCUT ×2 (03:49→17:10)
[2024-12-28 05:36] LABS: Basophils # 0.1 10^3/uL (0.0-0.1); Basophils % 1.1 %; Eosinophils # 0.3 10^3/uL (0.0-0.8); Eosinophils % 2.6 %; Hematocrit 31.4 % (37-53); Lymphocytes # 1.5 10^3/uL (0.8-4.8); Lymphocytes % 12.4 %; Mean Corpuscular Hemoglobin 26.1 pg (27-33); Mean Corpuscular Volume 90.2 fl (82-101); Mean Platelet Volume 12.6 fL (7.4-10.4); Neutrophils # 9.26 10^3/uL (1.8-7.7); Neutrophils % 74.8 %; Nucleated Red Blood Cells % 0 %; Platelet Count 280 10^3/cmm (157-399); Red Blood Count 3.48 10^6/uL (3.85-5.65); Red Cell Distribution Width 20.4 % (12.1-15.1); White Blood Count 12.37 10^3/uL (3.29-11.43)
[2024-12-28] MEDS: pantoprazole 40 mg SDV IVP ×2 (05:50→17:10)
[2024-12-28 05:56] LABS: Alanine Aminotransferase 41 U/L (0-41); Albumin Level 3.6 g/dL (3.5-5.2); Alkaline Phosphatase 99 U/L (40-130); Anion Gap 20.6 (5-19); Aspartate Amino Transferase 28 U/L (0-40); Blood Urea Nitrogen 47 mg/dL (8-23); Calcium 9.3 mg/dL (8.5-10.5); Carbon Dioxide 22 mmol/L (22-29); Chloride 114 mmol/L (98-107); Creatinine Clr Calc Pharmacy 24.3268; Globulin 3.9 g/dL (1.3-4.6); Glomerular Filtration Rate 20.2 mL/min (90-130); Glucose 95 mg/dL (65-115); Magnesium 2.5 mg/dL (1.7-2.3); Osmolality Calculated 328 mOsm/kg (285-295); Phosphorus 3.9 mg/dL (2.5-4.5); Potassium 3.6 mmol/L (3.5-5.1); Sodium 153 mmol/L (136-145); Total Bilirubin 0.4 mg/dL (0.15-1.2); Total Protein 7.5 g/dL (6.6-8.7)
[2024-12-28 05:57] LABS: Glucose Point of Care 94 mg/dL (70-110)
--- NOTE | 2024-12-28 08:40 | P.PN_ITS ---
Subjective 2 Subjective: No significant change in patient's condition overall. Vitals/I&O/Wt Last Vital Signs Temp 98.8 F 12/26/24 20:00 Pulse 56 L 12/28/24 08:00 Resp 31 H 12/28/24 08:00 BP 137/79 12/28/24 08:00 Pulse Ox 95 12/28/24 08:00 O2 Del Method Room Air 12/27/24 20:35 O2 Flow Rate 2 12/26/24 20:00 FiO2 6 12/22/24 20:00 Weight last 48 hrs Weight 160 lb 14.999 oz Weight 175 lb 4.28 oz Physical Exam 2 Narrative: GENERAL: Patient is awake NECK: No jugular vein distension. [] HEENT: No cyanosis. No icterus. No pallor. [] HEART: Regular S1 and S2. LUNGS: Diminished air entry bilaterally CENTRAL NERVOUS SYSTEM: Has contractures EXTREMITIES: Lower extremities with 1+ edema bilaterally. Urinary Catheter Management: Lamb: Cath Placed During This Visit: yes Reason for Continuing Indwelling Catheter: Accurate Measurement of Urinary Output in Critically Ill Patients Urinary Catheter Date of Insertion: 12/15/24 Urinary Catheter Time of Insertion: 22:30 Data 12/28/24 05:19 12/28/24 05:19 A&P Assessment and plan (1) ST elevation myocardial infarction (STEMI): (2) Atrial fibrillation with RVR: (3) Congestive heart failure: Plan Patient is stable from cardiac standpoint. Continue dual antiplatelet therapy Attestations 2 Medical Necessity Statement*: Care expected to cross 2 midnights. Coding Level of Care Code Acute Code for [facility] Diagnoses ST elevation myocardial infarction (STEMI) I21.3 Atrial fibrillation with RVR I48.91 Congestive heart failure I50.9
[2024-12-28] MEDS: ipratropium-albuterol 3 mL Neb INHALATION (08:50)
[2024-12-28] MEDS: aspirin 81 mg EC Tablet PO (09:12)
[2024-12-28] MEDS: citalopram 20 mg Tablet 10 MG PO (09:12)
[2024-12-28] MEDS: lactulose oral liq 20 gm/30 mL UDC PO (09:12)
[2024-12-28] MEDS: amiodarone 200 mg Tablet 400 MG PO ×2 (09:12→17:10)
[2024-12-28] MEDS: clopidogrel 75 mg Tablet PO (09:12)
[2024-12-28] MEDS: levETIRAcetam 1,000 mg/10 mL UDC 1000 MG PO ×2 (09:12→21:54)
[2024-12-28] MEDS: metoprolol tartrate 25 mg Tablet PO ×2 (09:14→21:54)
--- NOTE | 2024-12-28 13:06 | P.PN_ITS ---
Subjective 2 Subjective: Yesterday evening, there was concern about NG tube placement for which x-ray was repeated and general surgery reviewed. Otherwise no acute events reported overnight. This morning he clinically seems similar to yesterday. Mentation is at baseline. Remains dependent on NG tube feeds. Unable to safely tolerate oral feeds. Will need feeding tube. Will proceed to reach out to additional tertiary centers today that would be able to meet his needs. Medications: Reviewed: Yes Vitals/I&O/Wt Last Vital Signs Temp 97.7 F 12/28/24 10:00 Pulse 68 12/28/24 13:00 Resp 18 12/28/24 13:00 BP 131/71 12/28/24 13:00 Pulse Ox 95 12/28/24 10:00 O2 Del Method Room Air 12/28/24 08:40 O2 Flow Rate 2 12/26/24 20:00 FiO2 6 12/22/24 20:00 Weight last 48 hrs Weight 73 kg Weight 79.5 kg Physical Exam 2 Narrative: General: Patient is awake. Disconjugate gaze. Calm. No acute distress. Head: Poor dentition. Neck: No JVD. Cardiovascular: RRR. No gallops. Murmurs present. Lower extremities edematous. Lungs: Breath sounds are diffusely coarse. On room air. Skin: No jaundice. No rashes. Abdomen: Normal bowel sounds, abdomen soft. Small scar likely old feeding tube site. Extremities: No cyanosis or clubbing. Musculoskeletal: No erythematous joints. Neurological: Marked contracture of right arm. No myoclonus. Urinary Catheter Management: Lamb: Cath Placed During This Visit: yes Reason for Continuing Indwelling Catheter: Accurate Measurement of Urinary Output in Critically Ill Patients Urinary Catheter Date of Insertion: 12/15/24 Urinary Catheter Time of Insertion: 22:30 Data 12/28/24 05:19 12/28/24 05:19 A&P Assessment and plan (1) Dysphagia: Continue speech therapy, unfortunately continues to fail safe oral intake Continue NG tube feeds Continue n.p.o. status General surgery has evaluated, unable to place feeding tube here Will transfer for jejunostomy tube placement (2) Acute kidney injury: Renal indices remain elevated but stable query could be new baseline Monitoring intake (3) Hypernatremia: Tube feeds were temporarily held, but been restarted with free water flushes Continue trending, given size of hiatal hernia holding off on increasing flush size If hyponatremia worsens, we will consider trickle D5W (4) Congestive heart failure: Strict I's and O's, daily weights Continue beta-dawson (5) Aspiration pneumonia: Status post antibiotics Continue aspiration precautions Feeding tube issue as above (6) Atrial fibrillation with RVR: Continue amiodarone Continue metoprolol tartrate Not on full dose anticoagulation due to history of GI bleed Continues telemetry monitoring (7) ST elevation myocardial infarction (STEMI): Cardiology following, appreciate recommendations LAD and RCA stented Continue DAPT and high intensity statin (8) Hypokalemia: Replace as needed (9) Transaminitis: Resolved (10) Developmental delay, profound: Mentation seems at baseline Has a guardian who makes his decisions, spoke with him today (11) Acute respiratory failure: Resolved Patient on room air Remains at risk for recurrent aspiration Plan DVT prophylaxis: Heparin Attestations 2 Medical Necessity Statement*: Patient requires ongoing hospitalization for NG tube feeds, feeding tube procurement, electrolyte management, and supportive care. Coding Level of Care Code Acute Code for [facility] Diagnoses Dysphagia R13.10 Acute kidney injury N17.9 Hypernatremia E87.0 Congestive heart failure I50.9 Aspiration pneumonia J69.0 Atrial fibrillation with RVR I48.91 ST elevation myocardial infarction (STEMI) I21.3 Hypokalemia E87.6 Transaminitis R74.01 Developmental delay, profound R62.50 Acute respiratory failure J96.00
[2024-12-28 13:54] LABS: Glucose Point of Care 103 mg/dL (70-110)
--- NOTE | 2024-12-28 18:00 | NUR.SHIFT ---
several attempt made to use ng tube with flush resulting in pt developing hiccups, doctor aware through out the day frequent oral care done with resulting chocking and aspiration noted suction done gave po meds with small amt of flush
[2024-12-28] MEDS: atorvastatin 40 mg Tablet 80 MG PO (21:54)
[2024-12-28 23:02] LABS: Glucose Point of Care 112 mg/dL (70-110)
[2024-12-29] VITALS (25 sets, daily range): BP systolic 117–150; BP diastolic 67–101; PULSE 50–133; RESP 11–42; TEMP 36.3–36.9; O2SAT 91–97
[2024-12-29 04:33] LABS: Glucose Point of Care 100 mg/dL (70-110)
[2024-12-29] MEDS: pantoprazole 40 mg SDV IVP ×2 (04:46→17:43)
[2024-12-29] MEDS: heparin 5,000 unit/mL INJ 1 mL 5000 UNIT SUBCUT ×3 (04:47→18:22)
--- NOTE | 2024-12-29 07:44 | PC.NURSE ---
attempt to draw blood for lab several time pt upset and fighting blood draws , doctor aware of above and npo status scarlett called for permission for picc line placement
--- NOTE | 2024-12-29 08:00 | PC.NURSE ---
demonstrator knitting guardian for jose coker called ,, [phone] with return call from suly kirkpatrick to obtain permit for picc, witness per sommer
[2024-12-29] MEDS: citalopram 20 mg Tablet 10 MG PO (08:09)
[2024-12-29] MEDS: lactulose oral liq 20 gm/30 mL UDC PO (08:09)
[2024-12-29] MEDS: levETIRAcetam 1,000 mg/10 mL UDC 1000 MG PO ×2 (08:09→20:44)
[2024-12-29] MEDS: amiodarone 200 mg Tablet 400 MG PO (08:09)
[2024-12-29] MEDS: clopidogrel 75 mg Tablet PO (08:10)
[2024-12-29] MEDS: metoprolol tartrate 25 mg Tablet PO ×2 (08:10→20:43)
[2024-12-29] MEDS: aspirin 81 mg EC Tablet PO (08:10)
--- NOTE | 2024-12-29 08:30 | PM.PN ---
Subjective Subjective: Patient's condition is unchanged from cardiac standpoint. Vitally stable. Vitals/I&O/Wt Last Vital Signs Temp 97.7 F 12/28/24 10:00 Pulse 53 L 12/29/24 06:00 Resp 25 H 12/29/24 06:00 BP 120/67 12/29/24 06:00 Pulse Ox 96 12/29/24 06:00 O2 Del Method Room Air 12/28/24 08:40 O2 Flow Rate 2 12/26/24 20:00 FiO2 6 12/22/24 20:00 12/28/24 12/29/24 12/29/24 22:59 06:59 14:59 Output Total 500 / 500 Balance -500 / -500 Weight last 48 hrs Weight 172 lb 6.424 oz Weight 160 lb 14.999 oz Physical Exam Narrative: GENERAL: Patient is awake NECK: No jugular vein distension. [] HEENT: No cyanosis. No icterus. No pallor. [] HEART: Regular S1 and S2. LUNGS: Diminished air entry bilaterally CENTRAL NERVOUS SYSTEM: Has contractures EXTREMITIES: Lower extremities with 1+ edema bilaterally. Urinary Catheter Management: Lamb: Cath Placed During This Visit: yes Reason for Continuing Indwelling Catheter: Accurate Measurement of Urinary Output in Critically Ill Patients Urinary Catheter Date of Insertion: 12/15/24 Urinary Catheter Time of Insertion: 22:30 Data 12/30/24 05:59 12/30/24 05:59 A&P Assessment and plan (1) ST elevation myocardial infarction (STEMI): (2) Atrial fibrillation with RVR: (3) Congestive heart failure: Plan Patient is stable from cardiac standpoint. Continue dual antiplatelet therapy In case feeding tube placement requires holding antiplatelet therapy, will recommend to transfer to a center with cangrelor availability to bridge for procedure while holding Plavix. Otherwise has very recent stents and cannot stop antiplatelet therapy. Thank you for involving us with care of this patient. We will continue to follow. Please call with questions. Attestations Medical Necessity Statement*: Care expected to cross 2 midnights Coding Level of Care Code Acute Code for [facility] Fwd Diagnoses ST elevation myocardial infarction (STEMI) I21.3 Atrial fibrillation with RVR I48.91 Congestive heart failure I50.9
--- NOTE | 2024-12-29 08:51 | PM.MISC ---
Miscellaneous Note Purpose of Documentation: Update on patient care Note: Patient clinical status remain unchanged, he had to be restrained as he tried to pull the lines that he is currently connected to. He has not been able to tolerate any tube feedings through the NG tube and this is only being used for medications. As previously discussed patient only option for enteral feeding in the long-term will be feeding jejunostomy. I have discussed with medical team and Been informed that the case has been discussed with outside surgeons but patient has not been accepted as in the consideration of outside physician proceeding with a jejunostomy tube placement in this patient without a stopping anticoagulation will likely result in severe morbidity and possible in addition after review of imaging outside physician considers likely the only option will be to proceed with an open procedure. There is also concerns regarding any meaningful impact on the quality of life this patient after tube placement the possibility of the patient dislodging any kind of tube. I agree with this assessment, patient is extremely high risk for any kind of surgical intervention and if we decide to proceed with an open jejunostomy placement the risks of significant bleeding and morbidity are high, in addition there is also the risks of the patient dislodging the tube causing uncontrollable bleeding and leakage of the intestinal content into the peritoneal cavity. The benefit for survival, quality of life does not appear to justify the risks of proceeding with an invasive procedure at this point. Endoscopic placement of enteral tube is not an option in this patient as he has a massive hiatal hernia and his complete stomach is located in the right chest. Medical team has informed me of the plan of calling an Ethics counsult to discuss what will be the best care for this patient going foward. I agreed with this plan and will remain available to discuss any possibility of surgical intervention as needed.
[2024-12-29 09:16] LABS: Glucose Point of Care 104 mg/dL (70-110)
--- NOTE | 2024-12-29 13:04 | PC.NURSE ---
continue with meds per ng tube , noted hiccups , frequent oral care , head of bed elevated awaiting picc placement
--- NOTE | 2024-12-29 13:44 | P.PN_ITS ---
Subjective 2 Subjective: Received a call from [facility] surgeon yesterday evening. We discussed Jorge Luis Lucas's case at length. He wanted to understand why the jejunostomy tube could not be placed here O[facility]. Explained we do not have the tube available here currently. He next inquired about the STEMI. We discussed the stent placements and the dual antiplatelet therapy. He stated that for open feeding tube he will need to be off antiplatelet agents for 7 days. Stated he would need cardiology on board with holding the anti-platelet agents. Generally, antiplatelet agents are not held within the first 30 days following STEMI with stent placement. IV cangrelor is occasionally an option for bridging such endeavors. Doing so risks in-stent rethrombosis, STEMI, or even . He then noted that this was not an urgent transfer given the patient's being NG tube fed and he raised concern regarding the ethical implications of placing a feeding tube in this patient. I did confirm that the patient is nonverbal at baseline. He has advanced developmental delay. He does not seem to have many, if any, purposeful movements. While my interactions with the patient are limited to the past 6 days, his quality life does seem quite poor to me. I did explain to the surgeon that he has a legal guardian appointed by the state. This is Nic Bryson in [facility] (contact info in prior note). Discussed that the medical decisions are made by by him. The surgeon stated that he would need full conversation with him before he be willing to accept the patient for transfer. I suspect the earliest this can be done would be on Monday. This morning, there is issues with IV access. PICC line was considered but patient was agitated so ultimately PICC line placement was held off for today. Patient seems to be at his mental baseline. He is awake, nonverbal, and does not appear to attempt verbal or nonverbal communication consistent with my prior exams. Thus no further history could be obtained from patient. General Surgery bedside later in the morning. Patient discussed with Dr. Ely. We had the same concerns essentially as the [facility] surgeon. Medications: Reviewed: Yes Vitals/I&O/Wt Last Vital Signs Temp 97.4 F L 12/29/24 09:00 Pulse 133 H 12/29/24 12:00 Resp 36 H 12/29/24 12:00 BP 138/101 12/29/24 12:00 Pulse Ox 92 12/29/24 12:00 O2 Del Method Room Air 12/29/24 10:20 O2 Flow Rate 2 12/26/24 20:00 FiO2 6 12/22/24 20:00 12/28/24 12/29/24 12/29/24 22:59 06:59 14:59 Output Total 500 / 500 Balance -500 / -500 Weight last 48 hrs Weight 78.2 kg Weight 73 kg Physical Exam 2 Narrative: General: Patient is awake. Disconjugate gaze. Chronically ill-appearing. Head: Poor dentition. Neck: No JVD. Cardiovascular: RRR. No gallops. Murmurs present. Lower extremities edematous. Lungs: Breath sounds are diffusely coarse. On room air. Skin: No jaundice. No rashes. Abdomen: Normal bowel sounds, abdomen soft. Small scar likely old feeding tube site. Extremities: No cyanosis or clubbing. Musculoskeletal: No erythematous joints. Neurological: Marked contracture of right arm. No myoclonus. Urinary Catheter Management: Lamb: Cath Placed During This Visit: yes Reason for Continuing Indwelling Catheter: Accurate Measurement of Urinary Output in Critically Ill Patients Urinary Catheter Date of Insertion: 12/15/24 Urinary Catheter Time of Insertion: 22:30 Data 12/28/24 05:19 12/28/24 05:19 A&P Assessment and plan (1) Dysphagia: Continue n.p.o. status Continue speech therapy Patient reportedly not a candidate for PEG due to large hiatal hernia. Open jejunostomy tube would be an option but carries significant risk as this is a much larger procedure on a chronically ill patient who does not follow commands at baseline who just had STEMI requiring ongoing dual antiplatelet therapy. Holding dual antiplatelet therapy carry significant risk of recurrent myocardial infarction, instent rethrombosis, heart failure and . Patient's quality of life seems very poor and is not expected to ever improve. There is clearly ethical implications to prolonging somebody suffering. Recommend consideration of ethics consult on Monday. (2) Acute kidney injury: Labs from today are still pending, was unable to obtain this morning (3) Hypernatremia: Labs pending Plan to start D5W today (4) Congestive heart failure: Strict I's and O's, daily weights Continue beta-dawson (5) Aspiration pneumonia: Status post antibiotics Continue aspiration precautions Feeding tube issue as above (6) Atrial fibrillation with RVR: Continue amiodarone Continue metoprolol tartrate Not on full dose anticoagulation due to history of GI bleed Continues telemetry monitoring (7) ST elevation myocardial infarction (STEMI): Cardiology following, appreciate recommendations LAD and RCA stented Continue DAPT and high intensity statin (8) Hypokalemia: Replace as needed (9) Developmental delay, profound: Mentation seems at baseline Has a guardian who makes his decisions - Nic Bryson @ [employer] in [place] @ [phone] (10) Acute respiratory failure: Resolved Patient on room air Remains at risk for recurrent aspiration Plan DVT prophylaxis: Heparin Attestations 2 Medical Necessity Statement*: Patient requires ongoing hospitalization for NG tube feeds, electrolyte management, and supportive care. Coding Level of Care Code Acute Code for [facility] Fwd Diagnoses Dysphagia R13.10 Acute kidney injury N17.9 Hypernatremia E87.0 Congestive heart failure I50.9 Aspiration pneumonia J69.0 Atrial fibrillation with RVR I48.91 ST elevation myocardial infarction (STEMI) I21.3 Hypokalemia E87.6 Developmental delay, profound R62.50 Acute respiratory failure J96.00
[2024-12-29] MEDS: dextrose 5% 1,000 ML 50 ML IV (14:14)
--- NOTE | 2024-12-29 14:23 | PC.NURSE ---
doctor called picc nurse felt unable to place line at this time without the pt being sedated ,, unable to hold still fighting with staff and spitting . will start d5w iv and readress picc in am
--- NOTE | 2024-12-29 14:35 | PC.NURSE ---
pt pulled out ng tube again , doctor rivas called and notifed dr rivera, will assess status again in am... not further hiccups noted at this time
--- NOTE | 2024-12-29 17:58 | XRR_ITS ---
PROCEDURE INFORMATION: Exam: XR Chest Exam date and time: 12/29/2024 5:59 PM Age: 69 years old Clinical indication: Device placement; Ng tube; Dobhoff adjustment TECHNIQUE: Imaging protocol: Radiologic exam of the chest. Views: 1 view. COMPARISON: CR XR chest 1V portable [id number] 12/27/2024 8:12 PM FINDINGS: Tubes, catheters and devices: Dobbhoff feeding tube over the right mainstem bronchus with the tip over the right inferior lung. Probably in the tracheobronchial tree instead of the esophagus. Lungs: Mild nonspecific bilateral pulmonary opacities suggesting pulmonary edema versus pneumonia. Pleural spaces: Unremarkable. No pleural effusion. No pneumothorax. Heart/Mediastinum: See Tubes, catheters and devices finding. Bones/joints: Unremarkable. XR/XR chest 1V portable [id number] IMPRESSION: 1. Dobbhoff feeding tube over the right mainstem bronchus with the tip over the right inferior lung. Probably in the tracheobronchial tree instead of the esophagus. 2. Mild nonspecific bilateral pulmonary opacities suggesting pulmonary edema versus pneumonia.
--- NOTE | 2024-12-29 18:02 | PM.MISC ---
Miscellaneous Note Purpose of Documentation: Update on patient care Note: Patient remove NG tube again. We have decided to obtain out Dobbhoff tube placement. We successfully placed without cuff due to the area of the hiatal hernia feeding around 15 cm more in terms of length and we will give the patient Reglan with the hopes of helping the Depakote advancing to the jejunum by gravity and peristalsis. Position of the tube inside of the hiatal hernia was verified with imaging. Can be used for meds but not for feeding until it has advance further down. Will recheck in the morning
--- NOTE | 2024-12-29 18:05 | XRR_ITS ---
PROCEDURE INFORMATION: Exam: XR Chest Exam date and time: 12/29/2024 6:08 PM Age: 69 years old Clinical indication: Device placement; Ng tube; Dobhoff placement; PT has known hiatal hernia TECHNIQUE: Imaging protocol: Radiologic exam of the chest. Views: 1 view. COMPARISON: CR (CHEST, ) 12/29/2024 5:59 PM FINDINGS: Tubes, catheters and devices: Dobbhoff tube tip below the diaphragm likely within the stomach. Lungs: Emphysematous changes. Patchy bilateral mid to lower lung field atelectasis versus infiltrate. Pleural spaces: Unremarkable. No pleural effusion. No pneumothorax. Heart/Mediastinum: Moderate hiatal hernia suspected. Bones/joints: Unremarkable. XR/XR chest 1V portable [id number] IMPRESSION: 1. Dobbhoff tube tip below the diaphragm likely within the stomach. 2. Moderate hiatal hernia suspected. 3. Emphysematous changes. 4. Patchy bilateral mid to lower lung field atelectasis versus infiltrate.
[2024-12-29] MEDS: metoclopramide 5 mg/mL SDV 2 mL 10 MG IVP ×2 (18:23→23:48)
[2024-12-29] MEDS: atorvastatin 40 mg Tablet 80 MG PO (20:44)
[2024-12-30] VITALS (25 sets, daily range): BP systolic 105–137; BP diastolic 68–100; PULSE 82–141; RESP 10–44; TEMP 36.6–37.1; O2SAT 89–97
--- NOTE | 2024-12-30 05:38 | XRR_ITS ---
PROCEDURE INFORMATION: Exam: XR Chest Exam date and time: 12/30/2024 6:18 AM Age: 69 years old Clinical indication: Device placement; Recheck of placement of dobhoff ng tube. History of hiatal hernia. ; Additional info: Dobhoff position TECHNIQUE: Imaging protocol: Radiologic exam of the chest. Views: 1 view. COMPARISON: CR XR chest 1V portable [id number] 12/29/2024 6:08 PM FINDINGS: Tubes, catheters and devices: Enteric tube with subdiaphragmatic side port and tip likely within the stomach. Lungs: Hypoinflation. Dense retrocardiac opacity with streaky opacities at the bilateral bases. Mild pulmonary interstitial edema. Pleural spaces: Unremarkable. No pleural effusion. No pneumothorax. Heart/Mediastinum: Stable cardiomediastinal silhouette. Large gastric bubble likely representing hiatal hernia. Bones/joints: Degenerative change throughout the visualized thoracic spine. XR/XR chest 1V portable [id number] IMPRESSION: 1. Stable appearance of the enteric tube with side port and tip likely within the stomach. 2. Similar pulmonary exam.
[2024-12-30 06:07] LABS: Basophils # 0.1 10^3/uL (0.0-0.1); Eosinophils # 0.2 10^3/uL (0.0-0.8); Eosinophils % 1.7 %; Hematocrit 34.5 % (37-53); Lymphocytes # 1.2 10^3/uL (0.8-4.8); Lymphocytes % 10.4 %; Mean Corpuscular HGB Conc 27.5 g/dL (30-55); Mean Platelet Volume 12.7 fL (7.4-10.4); Monocytes # 0.8 10^3/uL (0.2-0.9); Monocytes % 7.1 %; Neutrophils % 79.3 %; Nucleated Red Blood Cells % 0 %; Platelet Count 304 10^3/cmm (157-399); Red Blood Count 3.52 10^6/uL (3.85-5.65); Red Cell Distribution Width 21.7 % (12.1-15.1); White Blood Count 11.85 10^3/uL (3.29-11.43)
[2024-12-30 06:27] LABS: Albumin Level 3.3 g/dL (3.5-5.2); Anion Gap 22.1 (5-19); Blood Urea Nitrogen 46 mg/dL (8-23); Calcium 8.9 mg/dL (8.5-10.5); Carbon Dioxide 20 mmol/L (22-29); Chloride 118 mmol/L (98-107); Creatinine Clr Calc Pharmacy 28.7118; Glomerular Filtration Rate 23.7 mL/min (90-130); Glucose 127 mg/dL (65-115); Magnesium 2.6 mg/dL (1.7-2.3); Phosphorus 2.8 mg/dL (2.5-4.5); Potassium 3.1 mmol/L (3.5-5.1); Sodium 157 mmol/L (136-145)
[2024-12-30 06:34] LABS: Glucose Point of Care 140 mg/dL (70-110)
[2024-12-30] MEDS: pantoprazole 40 mg SDV IVP ×2 (07:29→19:37)
[2024-12-30] MEDS: metoclopramide 5 mg/mL SDV 2 mL 10 MG IVP (07:29)
[2024-12-30] MEDS: levETIRAcetam 1,000 mg/10 mL UDC 1000 MG PO ×2 (09:22→20:57)
[2024-12-30] MEDS: potassium chloride oral liq 20 mEq/15 mL UDC 80 MEQ PO (09:22)
[2024-12-30] MEDS: lactulose oral liq 20 gm/30 mL UDC PO (09:22)
[2024-12-30] MEDS: clopidogrel 75 mg Tablet PO (09:23)
[2024-12-30] MEDS: citalopram 20 mg Tablet 10 MG PO (09:23)
[2024-12-30] MEDS: metoprolol tartrate 25 mg Tablet PO ×2 (09:23→20:57)
[2024-12-30] MEDS: amiodarone 200 mg Tablet PO (09:23)
[2024-12-30] MEDS: aspirin 81 mg EC Tablet PO (09:24)
--- NOTE | 2024-12-30 11:02 | P.PN_ITS ---
<Statement entered by Anuel Freitas M.D - 12/31/24 00:24> Patient was evaluated and cared for in conjunction with an advanced practice practitioner. I personally examined the patient and reviewed the chart and all pertinent data including imaging, telemetry, and laboratory results. I discussed the patient in detail with the advanced practice practitioner. Please see their note for complete progress note, results and agreed upon plan of care for the patient. No changs to overall medical condition GENERAL: Patient is drowsy HEART: Regular S1 and S2 LUNGS: Diminished air entry bilaterally EXTREMITIES: Contractures Subjective 2 Subjective: No acute changes overnight. Patient's vitals are stable. He now has a Dobbhoff tube. Vitals/I&O/Wt Last Vital Signs Temp 98.2 F 12/30/24 08:00 Pulse 92 12/30/24 10:00 Resp 17 12/30/24 10:00 BP 129/81 12/30/24 10:00 Pulse Ox 95 12/30/24 10:00 O2 Del Method Room Air 12/30/24 10:00 O2 Flow Rate 2 12/26/24 20:00 FiO2 6 12/22/24 20:00 12/29/24 12/30/24 12/30/24 22:59 06:59 14:59 Intake Total 825 / 825 Balance 825 / 825 Weight last 48 hrs Weight 171 lb 15.369 oz Weight 172 lb 6.424 oz Physical Exam 2 Narrative: General: No apparent distress, healthy appearing, well nourished HENMT: normoceophalic Lymphatic: no lymphedema noted Respiratory: Normal respiratory effort, clear to auscultation bilaterally throughout all lung shell, no use of accessory muscles Cardio: No JVD, regular rate, regular rhythm, S1 S2 normal, no murmurs, peripheral pulses 2+ radial palpated bilaterally GI: Normal to inspection, nondistended Extremities: normal, normal capillary refill, no cyanosis, trace edema bilateral dorsal aspect of the feet Neuro: Alert and oriented x4, no focal motor deficits Psych: patient is nonverbal at baseline Skin: No rashes or lesions noted, no wounds Urinary Catheter Management: Lamb: Cath Placed During This Visit: yes Reason for Continuing Indwelling Catheter: Accurate Measurement of Urinary Output in Critically Ill Patients Urinary Catheter Date of Insertion: 12/15/24 Urinary Catheter Time of Insertion: 22:30 Data 12/30/24 05:59 12/30/24 05:59 A&P Assessment and plan (1) ST elevation myocardial infarction (STEMI): (2) Atrial fibrillation with RVR: (3) Congestive heart failure: Plan Patient stable from heart standpoint. Continue amio 20 daily. It is imperative to continue aspirin and Plavix due to recent stent. H%H lower at 9.5/34.5 but stable to improving. Creat improving at 2.7. Otherwise, no changes from cardiac standpoint. Attestations 2 Medical Necessity Statement*: Deferred to primary. Coding Level of Care Code Acute Code for [facility] Diagnoses ST elevation myocardial infarction (STEMI) I21.3 Atrial fibrillation with RVR I48.91 Congestive heart failure I50.9
[2024-12-30 11:45] LABS: Glucose Point of Care 150 mg/dL (70-110)
[2024-12-30] MEDS: dextrose 5% 1,000 ML 50 ML IV (12:03)
--- NOTE | 2024-12-30 13:33 | PC.NURSE ---
Dr. Dao states that patient is ok to be discharged to home as ordered. Discharge instructions given to patient. Awaiting pharmacy delivery of medications.
--- NOTE | 2024-12-30 15:48 | PM.MISC ---
Miscellaneous Note Purpose of Documentation: Update on Patient care Note: I have extensive discussion with the caregiver for Mr. Kang. I have explained to him that unfortunately his clinical condition is poor and his likelihood of meaningful recovery is minimal at this point. I discussed the specifics of where the possibility of proceed with an open jejunostomy tube placement. I Informed him that under normal circumstances there will be a high risk procedure with his clinical condition but in addition to that he is receiving therapeutic antiplatelet therapy, which makes the procedure extremely high risks for intraoperative bleeding and . Even if the procedure is successful the risks of tube dislodging causing massive uncontrollable bleeding and is significant. I have explained to him that outside institutions have not accepted him as the risks of the procedure is too high and there are several ethical questions regarding continuing invasive interventions in this patient. He would like to think and discuss the case with the intermediate where the patient was living before deciding on the next step. I have informed him of this discussion to the medical team. We will wait on the decision of the family member.
[2024-12-30] MEDS: heparin 5,000 unit/mL INJ 1 mL 5000 UNIT SUBCUT (16:36)
[2024-12-30 17:25] LABS: Anion Gap 16.5 (5-19); Blood Urea Nitrogen 42 mg/dL (8-23); Calcium 8.9 mg/dL (8.5-10.5); Carbon Dioxide 23 mmol/L (22-29); Chloride 121 mmol/L (98-107); Creatinine Clr Calc Pharmacy 29.7849; Glomerular Filtration Rate 24.7 mL/min (90-130); Glucose 128 mg/dL (65-115); Osmolality Calculated 336 mOsm/kg (285-295); Potassium 3.5 mmol/L (3.5-5.1); Sodium 157 mmol/L (136-145)
[2024-12-30 17:43] LABS: Glucose Point of Care 131 mg/dL (70-110)
--- NOTE | 2024-12-30 18:52 | PM.PN ---
Subjective Subjective: Hospital course, labs appreciated. Patient seen in bed, remains confused, moving his arms, trying to reach for the Dobbhoff tube. Has remained hemodynamically stable. Heart rate controlled. Remains on room air. Not following directions. No urine output documented over last 48 hours. Medications: Reviewed: Yes Vitals/I&O/Wt Last Vital Signs Temp 97.8 F 12/30/24 16:00 Pulse 118 H 12/30/24 18:00 Resp 20 H 12/30/24 18:00 BP 126/84 12/30/24 18:00 Pulse Ox 90 12/30/24 18:00 O2 Del Method Room Air 12/30/24 16:00 O2 Flow Rate 2 12/26/24 20:00 FiO2 6 12/22/24 20:00 12/30/24 12/30/24 12/30/24 06:59 14:59 22:59 Intake Total 912.5 / 912.5 922 / 1834.5 Output Total 200 / 200 Balance 912.5 / 912.5 722 / 1634.5 Weight last 48 hrs Weight 78 kg Weight 78.2 kg Physical Exam Narrative: General: Patient is awake. Disconjugate gaze. Chronically ill-appearing. Head: Poor dentition. Neck: No JVD. Cardiovascular: RRR. No gallops. Murmurs present. Lower extremities edematous. Lungs: Breath sounds are diffusely coarse. On room air. Skin: No jaundice. No rashes. Abdomen: Normal bowel sounds, abdomen soft. Small scar likely old feeding tube site. Extremities: No cyanosis or clubbing. Musculoskeletal: No erythematous joints. Neurological: Marked contracture of right arm. No myoclonus. Urinary Catheter Management: Lamb: Cath Placed During This Visit: yes Reason for Continuing Indwelling Catheter: Accurate Measurement of Urinary Output in Critically Ill Patients Urinary Catheter Date of Insertion: 12/15/24 Urinary Catheter Time of Insertion: 22:30 Data 12/30/24 05:59 12/30/24 16:45 A&P Assessment and plan (1) Dysphagia: Continue n.p.o. status Continue speech therapy Patient reportedly not a candidate for PEG due to large hiatal hernia. Open jejunostomy tube would be an option but carries significant risk as this is a much larger procedure with high risk of bleeding while being on DAPT on a chronically ill patient who does not follow commands at baseline who just had STEMI requiring ongoing dual antiplatelet therapy. Holding dual antiplatelet therapy carry significant risk of recurrent myocardial infarction, instent rethrombosis, heart failure and . Patient's quality of life seems very poor and is not expected to ever improve. Concern that patient might pull on the jejunostomy tube as well given poor mentation. He does have h/o pulling PEG tubes in the past. Will need to discuss further with DPOA/state appointed kassandra. (2) Acute kidney injury: Patient creatinine seems to be stabilizing around 2.5-2.7. Uremia stable. Medical reconciliation done for nephrotoxic drugs. Been complicated by hypernatremia and hypokalemia related. Strict input output charting, daily weights. Continued Lamb catheterization. Monitor BMP every 12 hours. (3) Hypernatremia: Sodium upto 157 today. Check urine lites. C/w D5 at 50 cc/hr. Watch for fluid overload. Start on free water flush 250 Q4h BMP Q12h (4) Congestive heart failure: Echocardiogram shows EF of 20% with regional wall motion abnormality. Will plan for limited echocardiogram. Strict I's and O's, daily weights Continue beta-dawson (5) Aspiration pneumonia: Status post antibiotics Continue aspiration precautions Feeding tube issue as above. Starting tube feeds through dobhoffs today. (6) Atrial fibrillation with RVR: Continue amiodarone at 200mg daily for now Continue metoprolol tartrate Not on full dose anticoagulation due to history of GI bleed Continues telemetry monitoring (7) ST elevation myocardial infarction (STEMI): Cardiology following, appreciate recommendations LAD and RCA stented Continue DAPT and high intensity statin (8) Hypokalemia: Replace as needed (9) Developmental delay, profound: Mentation seems at baseline Has a guardian who makes his decisions - Nic Bryson @ [employer] in [place] @ [phone] (10) Acute respiratory failure: Resolved. Post Extubation. Patient on room air Remains at risk for recurrent aspiration (11) Goals of care, counseling/discussion: (12) Guardianship: Plan Goals of care discussion: Had detailed goals of care discussion with patient's caregiver from [facility] at bedside. Patient has a state appointed guardian Mr. Nic Bryson. Tried calling Nic on the cell phone but not able to get in touch. As per the caregiver at bedside. Patient is dependent completely on for ADLs. He is bedbound. We discussed in detail that unfortunately there is a high chance of patient not surviving and even if he does there is a high likelihood of him having worsening quality of life than what he already has. Discussed about CODE STATUS. Discussed that unfortunately if patient has to have cardiac arrest chances of his survival and quality of life will go even poor than what they are right now. Caregivers will discuss further with patient's DPOA about goals of care and would let us know. Will try to call Mr. Nic Bryson again on the cell phone. 12/17: Was able to get in touch with Nic Bryson/state appointed guardian for Mr. Lucas. Had a detailed discussion regarding prognosis, concerns for possible arrhythmia given significant cardiomyopathy with EF of 20% in setting of cardiogenic shock and acute [place]. For now the guardian would want patient to remain full code, continue with current care. 12/30: Had further goals of care discussion with patient's guardian Nic Bryson over the phone. We discussed patient has been extubated and since then seems to be getting back to his baseline mentation though he is not able to feed himself and not able to follow directions. Discussed for now he has an NG tube for hydration and diet which he has pulled out multiple times and had to be replaced along with pulling of Discussed going further for nutrition Peg tube is not an option given significant hiatal hernia as per surgical team. Discussed about need for open jejunostomy which is at risk as well given the fact that patient is on DAPT for recent STEMI post PCI status. Discussed on stopping DAPT that he is at high risk of in-stent thrombosis while doing the procedure as he is on DAPT he is at high risk of bleeding. We discussed about further plans of nutrition and mode of nutrition. Parliamentary Librarian would like to discuss further with surgeon before making any decision. Have requested Dr. Christian Quiñonez to communicate with Gauri Analgesia: Morphine 2 mg 4 hours as needed Glycemic control: Not needed, hypoglycemia protocol Nutrition: Increase Nepro 10 cc q6h with goal at 35 cc/h, Free water flushes 250 cc every 4 hours CODE STATUS: Full code. PUD prophylaxis: Protonix DVT prophylaxis: SCDs. Hemoglobin trending down hold off on heparin for now. Gaurded prognosis Continue with care at ICU Discharge plan: Patient lives at [facility]. Has significant developmental delay at baseline. Dependent on caregivers for ADLs at baseline. High concern for increased requirements on discharge. Patient might need PEG tube along with possible tracheostomy depending on clinical improvement. Patient will need prolonged physical therapy. Discussed in detail with patient's caregivers about possible transition to LTAC once patient is more stable. Patient was accepted to LTAC but unfortunately has been declined now as he has been extubated. For now we will continue the care. Possible discharge to SNF vs back to [facility]. This documentation was created by [employer] mender knit goods software. Every effort was made to ensure accuracy of mender knit goods. Any obvious errors or omissions should be clarified with the author of the document. Attestations Medical Necessity Statement*: The high probability of a clinically significant, sudden or life threatening deterioration of the patient's [neurology, cardiology, pulm, nutrition] system(s) required my full and direct attention, intervention and personal management. The critical care time is as shown. This time is in addition to time spent performing any reported procedures but includes the following: [x] Data and vital sign review and interpretation [x] Patient assessment, examination and intervention [x] Documentation [x] Medication orders and management 90 Coding Level of Care Code Critical Care >/= 30 minutes Critical care time (in minutes): 90 The high probability of a clinically significant, sudden or life threatening deterioration, as referenced in this documentation, required my full and direct attention, intervention and personal management. The critical care time shown is in addition to time spent performing any reported separately billable procedures and includes the following: [x] Data and vital sign review and interpretation [x] Patient assessment, examination and intervention [x] Medication orders and management [x] Patient/Family updates as able [x] Care Coordination and Documentation. Other Coding Information This patient has a high probability of clinically significant, sudden or life threatening deterioration of the patient's (neurological/pulmonary/cardiac/renal/ID/endocrine) systems required my full, direct attention, the highest level of physician preparedness for urgent intervention and personal management. I managed/supervised life or organ supporting interventions that required frequent physician assessment. I devoted my full attention in the ICU to the direct care of this patient for the period of time indicated above. Time I spent with family or surrogate(s) is included only if the patient was incapable of providing necessary information or participating in decision making. This time includes the following services provided: Telemetry review Mechanical Ventilation Hemodynamic interpretation, assessment and management Review and interpretation of CXR Review and interpretation of lab values Review and interpretation of microbiologic data and culture results Review of medications and administration Review and interpretation of Nutrition requirements and management Discussion of management with other consultants and services Clinical update to family members Diagnoses Dysphagia R13.10 Acute kidney injury N17.9 Hypernatremia E87.0 Congestive heart failure I50.9 Aspiration pneumonia J69.0 Atrial fibrillation with RVR I48.91 ST elevation myocardial infarction (STEMI) I21.3 Hypokalemia E87.6 Developmental delay, profound R62.50 Acute respiratory failure J96.00 Goals of care, counseling/discussion Z71.89 Guardianship
--- NOTE | 2024-12-30 19:14 | ECG_ITS ---
[facility] [employer] Test Date: 2024-12-30 Pat Name: Jorge Luis Lucas Department: Room: ICU10 Gender: Male [employer]: : 1955 Requested By: Shon Marin Order Number: [id number] Ash MD: Anuel Freitas M.D. Measurements Intervals Hubbard Rate: 151 P: 0 DC: 0 QRS: 83 QRSD: 106 T: -27 QT: 269 QTc: 426 Interpretive Statements ATRIAL FLUTTER/TACHYCARDIA WITH RAPID VENTRICULAR RESPONSE LOW QRS VOLTAGE [QRS DEFLECTION < 0.5/1.0 mV IN LIMB/CHEST LEADS] INCOMPLETE RIGHT BUNDLE BRANCH BLOCK [90+ ms QRS DURATION, TERMINAL R IN V1/V2, 40+ ms S IN I/aVL/V4/V5/V6] ANTEROSEPTAL MYOCARDIAL INFARCTION , OF INDETERMINATE AGE [40+ ms Q WAVE IN V1-V4] Compared to ECG 12/21/2024 01:43:43 Incomplete right bundle-branch block now present ST (T wave) deviation no longer present Myocardial infarct finding still present Electronically Signed On 01-02-2025 22:04:59 FAIRGROUND OPERATOR by Anuel Freitas M.D. [email or web address]
[2024-12-30] MEDS: dilTIAZem 5 mg/mL SDV 5 mL 10 MG IVP (19:34)
[2024-12-30] MEDS: atorvastatin 40 mg Tablet 80 MG PO (20:57)
[2024-12-30] MEDS: amiodarone 150 MG/100 ML PREMIX 400 MG IV (20:58)
[2024-12-31] VITALS (25 sets, daily range): BP systolic 70–121; BP diastolic 47–80; PULSE 72–103; RESP 16–42; TEMP 36.9–38; O2SAT 90–98
[2024-12-31] MEDS: acetaminophen 325 mg Tablet 650 MG PO (04:30)
[2024-12-31] MEDS: heparin 5,000 unit/mL INJ 1 mL 5000 UNIT SUBCUT ×2 (04:40→17:14)
[2024-12-31 05:26] LABS: Glucose Point of Care 144 mg/dL (70-110)
[2024-12-31 05:30] LABS: Basophils # 0.1 10^3/uL (0.0-0.1); Basophils % 0.8 %; Eosinophils # 0.2 10^3/uL (0.0-0.8); Eosinophils % 1.1 %; Hematocrit 32.3 % (37-53); Lymphocytes # 1.3 10^3/uL (0.8-4.8); Lymphocytes % 8.2 %; Mean Corpuscular HGB Conc 28.5 g/dL (30-55); Mean Corpuscular Hemoglobin 26.4 pg (27-33); Mean Corpuscular Volume 92.6 fl (82-101); Monocytes % 5.9 %; Neutrophils # 13.33 10^3/uL (1.8-7.7); Neutrophils % 83.4 %; Nucleated Red Blood Cells % 0.2 %; Platelet Count 307 10^3/cmm (157-399); Red Blood Count 3.49 10^6/uL (3.85-5.65); Red Cell Distribution Width 21.7 % (12.1-15.1); White Blood Count 15.99 10^3/uL (3.29-11.43)
--- NOTE | 2024-12-31 05:45 | XRR_ITS ---
PROCEDURE INFORMATION: Exam: XR Chest Exam date and time: 12/31/2024 5:42 AM Age: 69 years old Clinical indication: Other: SOA TECHNIQUE: Imaging protocol: Radiologic exam of the chest. Views: 1 view. COMPARISON: CR (CHEST, ) 12/30/2024 6:18 AM FINDINGS: Tubes, catheters and devices: Subdiaphragmatic enteric tube likely within the stomach. Lungs: Hypoinflation with bronchovascular crowding. No focal consolidation. Diffuse streaky opacities [id number]. Pleural spaces: No pleural effusion. No pneumothorax. Heart/Mediastinum: Enlarged cardiac silhouette possibly secondary to hypoinflation. Bones/joints: No acute osseous abnormality. Degenerative change of the thoracic spine and right shoulder. Other findings: Limited evaluation secondary to portable technique and rotation. XR/XR chest 1V [id number] IMPRESSION: Hypoinflation with bronchovascular crowding. Diffuse streaky opacities [id number] likely representing atelectasis.
[2024-12-31 05:59] LABS: Potassium, Radom Urine 44 mmol/L; Urine Random Chloride 10 mmol/L; Urine Random Sodium 15 mmol/L
[2024-12-31 06:00] LABS: Alanine Aminotransferase 33 U/L (0-41); Albumin Level 3.4 g/dL (3.5-5.2); Alkaline Phosphatase 93 U/L (40-130); Anion Gap 21.5 (5-19); Aspartate Amino Transferase 29 U/L (0-40); Blood Urea Nitrogen 42 mg/dL (8-23); Calcium 8.4 mg/dL (8.5-10.5); Carbon Dioxide 19 mmol/L (22-29); Chloride 116 mmol/L (98-107); Creatinine Clr Calc Pharmacy 28.6818; Globulin 4.5 g/dL (1.3-4.6); Glomerular Filtration Rate 23.7 mL/min (90-130); Glucose 112 mg/dL (65-115); Osmolality Calculated 327 mOsm/kg (285-295); Potassium 3.5 mmol/L (3.5-5.1); Sodium 153 mmol/L (136-145); Total Bilirubin 0.3 mg/dL (0.15-1.2); Total Protein 7.9 g/dL (6.6-8.7)
[2024-12-31] MEDS: norepinephrine 4 MG/250 ML BAG 7.5 MG IV (06:48)
[2024-12-31] MEDS: sodium chloride 0.9% 250 ML IV (06:48)
[2024-12-31 06:49] LABS: ABG PCO2 34.6 mmHg (35-45); ABG PH Result 7.42 (7.35-7.45); Alveolar-Arterial Oxygen Gradi 11.2 mmHg (5-10); Arterial Blood Gas Hematocrit 24.9 % (42-52); Blood Gas Allen Test Pos; Blood Gas Operator Identificat ED; Blood Gas Sample Site Radial, right; Blood Gas Sample Type Arterial; Carboxyhemoglobin 1.3 %THgb (0.4-20.1); HCO3 ABG 22.3 mmol/L (22-26); HGB O2 Sat 91.6 % (95-100); Ionized Calcium Level - ABG 1.2 mmol/L (1.1-1.4); Methemoglobin 1.6 % (0.4-1.5); Oxygen Device NC; Oxygen Saturation ABG 94.4; PO2 ABG 71.3 mmHg (80.0-100.0); PO2 FiO2 Ratio Arterial Blood 254; Potassium Level - ABG 3.3 mmol/L (3.5-5.0); Total Hemoglobin 8.1 g/dL (14-18)
[2024-12-31] MEDS: pantoprazole 40 mg SDV IVP ×2 (06:49→17:12)
--- NOTE | 2024-12-31 07:46 | PC.NURSE ---
Patient started shift alert, pulling self toward rails, was able to micro shift in bed, made attempts to pull at NG tube but redirected by restraint. Cardiac rhythm a flutter with RVR, confirmed with EKG, rate variable between 120-160. Contacted Dr. Saavedra, new order received for Cardizem. An hour later no improvement. Made Dr. Saavedra aware, new order received for Amiodarone drip. Then received call from Dr. Downey inquiring about pt rate and rhythm. New order received for Amiodarone bolus, bolus was administered and pt converted to SR at approx 2000. Dr. Saavedra made aware and amio drip held per Dr. Saavedra. Pt became less alert at approx 0400, blood pressure lower but still WNL, requiring oxygen at 2 liters to maintain sats greater than 90%, lungs more congested, having short periods of apnea, resp more shallow, and temp 100.4 ax. X-ray obtained, morning labs obtained. VS progressively deteriorated until pt was hypotensive with MAPs in mid to high 50's unless pt was being physically stimulated, was only responsive to painful stimuli, heart rate as low as 45 but not sustaining. Contacted Dr. Saavedra, made aware of condition change, 250 ml bolus given, new order for levophed, and stat ABG obtained.
[2024-12-31] MEDS: aspirin 81 mg EC Tablet PO (08:42)
[2024-12-31] MEDS: clopidogrel 75 mg Tablet PO (08:42)
[2024-12-31] MEDS: citalopram 20 mg Tablet 10 MG PO (08:42)
[2024-12-31] MEDS: amiodarone 200 mg Tablet PO (08:42)
[2024-12-31] MEDS: levETIRAcetam 1,000 mg/10 mL UDC 1000 MG PO ×2 (08:42→21:51)
[2024-12-31] MEDS: metoprolol tartrate 25 mg Tablet PO (08:42)
[2024-12-31] MEDS: lactulose oral liq 20 gm/30 mL UDC PO (08:42)
[2024-12-31] MEDS: dextrose 5% 1,000 ML 50 ML IV (08:44)
--- NOTE | 2024-12-31 09:18 | XRR_ITS ---
PROCEDURE INFORMATION: Exam: XR Abdomen Exam date and time: 12/31/2024 11:53 AM Age: 69 years old Clinical indication: Abdominal pain; Generalized; Additional info: Follow up TECHNIQUE: Imaging protocol: Radiologic exam of the abdomen. Views: Frontal supine view of the abdomen. 1 View. COMPARISON: CR XR KUB portable [id number] 12/20/2024 9:34 AM FINDINGS: Gastrointestinal tract: Since the prior study there has been development of borderline gaseous distension of small and large bowel loops. No significant gas is noted within the rectum Intraperitoneal space: No gross evidence of pneumoperitoneum. Bones/joints: Unremarkable. XR/XR abdomen 1V* [id number] IMPRESSION: Development of borderline gaseous distension of large and small bowel loops without significant rectal gas. These findings may be owing to severe ileus with decompression of the rectum however distal colonic obstruction is not excluded. Continued follow-up radiographs or correlation with CT of the abdomen and pelvis could be obtained for further evaluation
--- NOTE | 2024-12-31 11:05 | P.PN_ITS ---
<Statement entered by Bharathi Downey MD - 12/31/24 21:49> Patient was evaluated and cared for in conjunction with an advanced practice practitioner. I personally examined the patient and reviewed the chart and all pertinent data including imaging, telemetry, and laboratory results. I discussed the patient in detail with the advanced practice practitioner. Please see their note for complete H&P testing result and agreed upon plan of care for the patient. Patient remained sedated He is on Levophed GENERAL: Patient is sedated HEART: Regular S1 and S2. No murmur, rub or gallop. LUNGS: Clear to auscultate bilaterally. CENTRAL NERVOUS SYSTEM: Grossly nonfocal. EXTREMITIES: Lower extremities with out edema bilaterally. Assessment and plan Status post ST elevation AL status post PCI Cardiogenic shock Inability to feed status post NG tube Patient is awaiting placement continue current management Long-term prognosis is guarded , Subjective 2 Subjective: Patient is not really responsive compared to yesterday. He has required a Levophed drip due to hypotension. Will hold blood pressure medication at this time. Vitals/I&O/Wt Last Vital Signs Temp 98.4 F 12/31/24 08:00 Pulse 79 12/31/24 09:00 Resp 21 H 12/31/24 09:00 BP 98/63 12/31/24 09:00 Pulse Ox 98 12/31/24 09:00 O2 Del Method Room Air 12/30/24 20:02 O2 Flow Rate 2 12/26/24 20:00 FiO2 6 12/22/24 20:00 12/30/24 12/31/24 12/31/24 22:59 06:59 14:59 Intake Total 922 / 1834.5 1300 / 3134.5 1000 / 1000 Output Total 200 / 200 150 / 350 Balance 722 / 1634.5 1150 / 2784.5 1000 / 1000 Weight last 48 hrs Weight 174 lb 2.643 oz Weight 171 lb 15.369 oz Physical Exam 2 Narrative: General: No apparent distress HENMT: normoceophalic Respiratory: Normal respiratory effort, clear to auscultation bilaterally throughout all lung shell, no use of accessory muscles Cardio: No JVD, regular rate, regular rhythm, S1 S2 normal, no murmurs, peripheral pulses 2+ radial palpated bilaterally GI: Normal to inspection, nondistended Extremities: normal, normal capillary refill, no cyanosis, trace edema bilateral dorsal aspect of the feet Neuro: patient sleeping, unresponsive Psych: patient is nonverbal at baseline Skin: No rashes or lesions noted, no wounds Urinary Catheter Management: Lamb: Cath Placed During This Visit: yes Reason for Continuing Indwelling Catheter: Accurate Measurement of Urinary Output in Critically Ill Patients Urinary Catheter Date of Insertion: 12/15/24 Urinary Catheter Time of Insertion: 22:30 Data 12/31/24 03:00 12/31/24 03:00 A&P Assessment and plan (1) ST elevation myocardial infarction (STEMI): (2) Atrial fibrillation with RVR: (3) Congestive heart failure: Plan Continue amio 20 daily. It is imperative to continue aspirin and Plavix due to recent stent. H%H lower stable. Would recommend repeat limited echo in a day to evaluate ejection fraction. PDMP PDMP Reviewed: Not Reviewed Attestations 2 Medical Necessity Statement*: Deferred to primary. Coding Level of Care Code Acute Code for [facility] Diagnoses ST elevation myocardial infarction (STEMI) I21.3 Atrial fibrillation with RVR I48.91 Congestive heart failure I50.9
[2024-12-31] MEDS: albumin 25 G/100 ML BAG 60 G IV (12:10)
[2024-12-31] MEDS: FUROsemide 10 mg/mL SDV 4mL 40 MG IVP (12:10)
--- NOTE | 2024-12-31 13:21 | XR_ITS ---
WS: [id number] CHEST XRAY TECHNIQUE: Portable chest. CLINICAL INFORMATION: Post PICC insertion FINDINGS: Patient is rotated. LEFT PICC line with tip at the SVC/RA junction. No visualized pneumothorax. Cardiomegaly. Pulmonary vascular congestion. Osteopenia. Enteric tube. Hyperinflation. XR/XR chest 1V portable [id number] IMPRESSION: 1. LEFT PICC line with tip at the SVC/RA junction 2. Fullness in the LEFT AP window nonspecific. This could be further evaluated with chest CT. No recent chest CT comparisons.
--- NOTE | 2024-12-31 14:59 | PICC.NOTE ---
Triple lumen PICC placed to left basilic vein. Referred to vascular access nurse for PICC placement due to poor access and irritant IV meds. Urgent consent for line given per Dr. Marin. Left arm assessed with left basilic vein measuring 3.4 mm, straight, and apparent best choice for placement. Using sterile technique and MST, left basilic vein accessed x 1 stick. Mid-arm circumference measured 10 cm from left AC 29 cm. Trimmed cath 47 cm with 2 cm external length noted. CXR shows tip in SVC/RA junction, in good position for use per radiologist. Line secured with stat-lock. Insertion site covered with Secureport IV and TSM. Report given to bedside nurse, GROVER Omer.
--- NOTE | 2024-12-31 16:52 | PM.PN ---
Subjective Subjective: Overnight patient had an episode of A-fib with RVR for which he was given a Cardizem push after which his blood pressures dropped and since then he has been on Levophed drip currently running at 4. He received an amiodarone bolus after which his heart rate is stable at back in normal sinus rhythm. Urine output documented in last 24 hours of around 500 cc. It seems patient's urine output has been poor for last 3 to 4 days. Remains on 2 L of oxygen supplementation. Medications: Reviewed: Yes Vitals/I&O/Wt Last Vital Signs Temp 98.4 F 12/31/24 08:00 Pulse 85 12/31/24 12:00 Resp 26 H 12/31/24 12:00 BP 115/79 12/31/24 12:00 Pulse Ox 95 12/31/24 12:00 O2 Del Method Nasal Cannula 12/31/24 11:25 O2 Flow Rate 2 12/31/24 11:25 FiO2 6 12/22/24 20:00 12/31/24 12/31/24 12/31/24 06:59 14:59 22:59 Intake Total 1300 / 3134.5 1000 / 1000 Output Total 150 / 350 Balance 1150 / 2784.5 1000 / 1000 Weight last 48 hrs Weight 79 kg Weight 78 kg Physical Exam Narrative: General: Patient is awake. Disconjugate gaze. Chronically ill-appearing. Head: Poor dentition. Neck: No JVD. Cardiovascular: RRR. No gallops. Murmurs present. Lower extremities edematous. Lungs: Breath sounds are diffusely coarse. On room air. Skin: No jaundice. No rashes. Abdomen: Normal bowel sounds, abdomen soft. Small scar likely old feeding tube site. Extremities: No cyanosis or clubbing. Musculoskeletal: No erythematous joints. Neurological: Marked contracture of right arm. No myoclonus. Urinary Catheter Management: Lamb: Cath Placed During This Visit: yes Reason for Continuing Indwelling Catheter: Accurate Measurement of Urinary Output in Critically Ill Patients Urinary Catheter Date of Insertion: 12/15/24 Urinary Catheter Time of Insertion: 22:30 Data 12/31/24 03:00 12/31/24 03:00 A&P Assessment and plan (1) Dysphagia: Continue n.p.o. status Continue speech therapy Patient reportedly not a candidate for PEG due to large hiatal hernia. Open jejunostomy tube would be an option but carries significant risk as this is a much larger procedure with high risk of bleeding while being on DAPT on a chronically ill patient who does not follow commands at baseline who just had STEMI requiring ongoing dual antiplatelet therapy. Holding dual antiplatelet therapy carry significant risk of recurrent myocardial infarction, instent rethrombosis, heart failure and . Patient's quality of life seems very poor and is not expected to ever improve. Concern that patient might pull on the jejunostomy tube as well given poor mentation. He does have h/o pulling PEG tubes in the past. Will need to discuss further with DPOA/state appointed kassandra. (2) Acute kidney injury: Patient creatinine seems to be stabilizing around 2.5-2.7. Uremia stable. Medical reconciliation done for nephrotoxic drugs. Been complicated by hypernatremia and hypokalemia related. Strict input output charting, daily weights. Continued Lamb catheterization. Monitor BMP every 12 hours. (3) Hypernatremia: Sodium upto 157 today. Check urine lites. C/w D5 at 50 cc/hr. Watch for fluid overload. Start on free water flush 250 Q4h BMP Q12h (4) Congestive heart failure: Echocardiogram shows EF of 20% with regional wall motion abnormality. Will plan for limited echocardiogram. Strict I's and O's, daily weights Continue beta-dawson (5) Aspiration pneumonia: Status post antibiotics Continue aspiration precautions Feeding tube issue as above. Starting tube feeds through dobhoffs today. (6) Atrial fibrillation with RVR: Continue amiodarone at 200mg daily for now Continue metoprolol tartrate Not on full dose anticoagulation due to history of GI bleed Continues telemetry monitoring (7) ST elevation myocardial infarction (STEMI): Cardiology following, appreciate recommendations LAD and RCA stented Continue DAPT and high intensity statin (8) Hypokalemia: Replace as needed (9) Developmental delay, profound: Mentation seems at baseline Has a guardian who makes his decisions - Nic Bryson @ [employer] Import/Export Agent in [place] @ [phone] (10) Acute respiratory failure: Resolved. Post Extubation. Patient on room air Remains at risk for recurrent aspiration (11) Goals of care, counseling/discussion: (12) Guardianship: Plan Plan for the day: Wean Levophed keeping mean artery pressure over 65. Continue with D5W at 50 cc/h. Continue with tube feeds at goal of 35 cc/h with free water flushes 250 cc every 4 hours. Monitor BMP every 12 hours. Repeat in afternoon. Hyponatremia seems to be improving with sodium down to 153. Patient back in normal sinus rhythm. Continue with amiodarone at 200 mg oral daily. If has further episode of A-fib with RVR will start on amiodarone drip at 0.5. Hold off on metoprolol as patient is on Levophed for now. Check abdominal x-ray with concerns for ileus. Continue with tube feeds. Lactulose as needed. Urine output remains poor. Will plan for IV albumin one-time followed by 40 mg of IV Lasix. Patient's care were discussed in detail between the surgeon and the guardian yesterday. Guardian is requesting documents of patient's hospitalization before making any decision. Have requested guardian to go through the medical records department so documents could be forwarded to him. Will await decision. Goals of care discussion: Had detailed goals of care discussion with patient's caregiver from [facility] at bedside. Patient has a state appointed guardian Mr. Cohensuki Bryson. Tried calling Nic on the cell phone but not able to get in touch. As per the caregiver at bedside. Patient is dependent completely on for ADLs. He is bedbound. We discussed in detail that unfortunately there is a high chance of patient not surviving and even if he does there is a high likelihood of him having worsening quality of life than what he already has. Discussed about CODE STATUS. Discussed that unfortunately if patient has to have cardiac arrest chances of his survival and quality of life will go even poor than what they are right now. Caregivers will discuss further with patient's DPOA about goals of care and would let us know. Will try to call Mr. Nic Bryson again on the cell phone. 12/17: Was able to get in touch with Nic Bryson/state appointed guardian for Mr. Lucas. Had a detailed discussion regarding prognosis, concerns for possible arrhythmia given significant cardiomyopathy with EF of 20% in setting of cardiogenic shock and acute [place]. For now the guardian would want patient to remain full code, continue with current care. 12/30: Had further goals of care discussion with patient's guardian Nic Adelaide over the phone. We discussed patient has been extubated and since then seems to be getting back to his baseline mentation though he is not able to feed himself and not able to follow directions. Discussed for now he has an NG tube for hydration and diet which he has pulled out multiple times and had to be replaced along with pulling of Discussed going further for nutrition Peg tube is not an option given significant hiatal hernia as per surgical team. Discussed about need for open jejunostomy which is at risk as well given the fact that patient is on DAPT for recent STEMI post PCI status. Discussed on stopping DAPT that he is at high risk of in-stent thrombosis while doing the procedure as he is on DAPT he is at high risk of bleeding. We discussed about further plans of nutrition and mode of nutrition. Import/Export Agent would like to discuss further with surgeon before making any decision. Have requested Dr. Christian Quiñonez to communicate with Gauri Analgesia: Morphine 2 mg 4 hours as needed Glycemic control: Not needed, hypoglycemia protocol Nutrition: Increase Nepro 10 cc q6h with goal at 35 cc/h, Free water flushes 250 cc every 4 hours CODE STATUS: Full code. PUD prophylaxis: Protonix DVT prophylaxis: SCDs. Hemoglobin trending down hold off on heparin for now. Gaurded prognosis Continue with care at ICU Discharge plan: Patient lives at [facility]. Has significant developmental delay at baseline. Dependent on caregivers for ADLs at baseline. High concern for increased requirements on discharge. Patient might need PEG tube along with possible tracheostomy depending on clinical improvement. Patient will need prolonged physical therapy. Discussed in detail with patient's caregivers about possible transition to LTAC once patient is more stable. Patient was accepted to LTAC but unfortunately has been declined now as he has been extubated. For now we will continue the care. Possible discharge to SNF vs back to [facility]. This documentation was created by [employer] refinery operator vapor recovery unit software. Every effort was made to ensure accuracy of refinery operator vapor recovery unit. Any obvious errors or omissions should be clarified with the author of the document. PDMP PDMP Reviewed: Not Reviewed Attestations Medical Necessity Statement*: Requires further hospitalization for management of dysphagia leading to poor oral intake with concerns for aspiration in a patient with severe developmental delay, state appointed guardianship who was initially admitted for cardiogenic shock, STEMI requiring possible jejunostomy tube, complicated by multiorgan dysfunction with AKANKSHA, hypernatremia Diagnoses Dysphagia R13.10 Acute kidney injury N17.9 Hypernatremia E87.0 Congestive heart failure I50.9 Aspiration pneumonia J69.0 Atrial fibrillation with RVR I48.91 ST elevation myocardial infarction (STEMI) I21.3 Hypokalemia E87.6 Developmental delay, profound R62.50 Acute respiratory failure J96.00 Goals of care, counseling/discussion Z71.89 Guardianship
[2024-12-31 17:00] LABS: Glucose Point of Care 110 mg/dL (70-110)
[2024-12-31 21:12] LABS: Blood Urea Nitrogen 45 mg/dL (8-23); Calcium 7.9 mg/dL (8.5-10.5); Carbon Dioxide 15 mmol/L (22-29); Chloride 114 mmol/L (98-107); Glomerular Filtration Rate 23.7 mL/min (90-130); Glucose 127 mg/dL (65-115); Osmolality Calculated 319 mOsm/kg (285-295); Sodium 148 mmol/L (136-145)
[2024-12-31 21:16] LABS: Anion Gap 23.3 (5-19); Potassium 4.3 mmol/L (3.5-5.1)
[2024-12-31] MEDS: atorvastatin 40 mg Tablet 80 MG PO (21:51)
[2025-01-01] VITALS (30 sets, daily range): BP systolic 82–128; BP diastolic 47–88; PULSE 75–113; RESP 15–39; TEMP 36.8–37.7; O2SAT 90–100
[2025-01-01 00:39] LABS: Glucose Point of Care 144 mg/dL (70-110)
[2025-01-01 04:55] LABS: Basophils # 0.1 10^3/uL (0.0-0.1); Basophils % 0.4 %; Eosinophils # 0.2 10^3/uL (0.0-0.8); Eosinophils % 1.4 %; Hematocrit 25.8 % (37-53); Lymphocytes # 1.2 10^3/uL (0.8-4.8); Mean Corpuscular HGB Conc 29.1 g/dL (30-55); Mean Corpuscular Hemoglobin 26.2 pg (27-33); Mean Corpuscular Volume 90.2 fl (82-101); Mean Platelet Volume 13.3 fL (7.4-10.4); Monocytes # 0.6 10^3/uL (0.2-0.9); Neutrophils % 85.6 %; Nucleated Red Blood Cells % 0.1 %; Platelet Count 204 10^3/cmm (157-399); Red Blood Count 2.86 10^6/uL (3.85-5.65); Red Cell Distribution Width 22.5 % (12.1-15.1); White Blood Count 15.41 10^3/uL (3.29-11.43)
[2025-01-01] MEDS: heparin 5,000 unit/mL INJ 1 mL 5000 UNIT SUBCUT ×2 (04:58→16:29)
[2025-01-01] MEDS: dextrose 5% 1,000 ML 50 ML IV (05:01)
[2025-01-01 05:28] LABS: Glucose Point of Care 133 mg/dL (70-110)
[2025-01-01 06:35] LABS: Alanine Aminotransferase 33 U/L (0-41); Alkaline Phosphatase 94 U/L (40-130); Blood Urea Nitrogen 44 mg/dL (8-23); Calcium 7.8 mg/dL (8.5-10.5); Carbon Dioxide 18 mmol/L (22-29); Chloride 111 mmol/L (98-107); Creatinine Clr Calc Pharmacy 29.0573; Globulin 3.8 g/dL (1.3-4.6); Glomerular Filtration Rate 23.7 mL/min (90-130); Glucose 123 mg/dL (65-115); Osmolality Calculated 311 mOsm/kg (285-295); Sodium 144 mmol/L (136-145); Total Bilirubin 0.3 mg/dL (0.15-1.2); Total Protein 6.8 g/dL (6.6-8.7)
[2025-01-01 06:40] LABS: Anion Gap 19.2 (5-19); Aspartate Amino Transferase 34 U/L (0-40); Potassium 4.2 mmol/L (3.5-5.1)
[2025-01-01] MEDS: amiodarone 200 mg Tablet PO (10:12)
[2025-01-01] MEDS: citalopram 20 mg Tablet 10 MG PO (10:12)
[2025-01-01] MEDS: pantoprazole 40 mg SDV IVP ×2 (10:13→20:32)
[2025-01-01] MEDS: levETIRAcetam 1,000 mg/10 mL UDC 1000 MG PO ×2 (10:13→20:32)
[2025-01-01] MEDS: clopidogrel 75 mg Tablet PO (10:13)
[2025-01-01] MEDS: lactulose oral liq 20 gm/30 mL UDC PO (10:13)
[2025-01-01] MEDS: FUROsemide 10 mg/mL SDV 4mL 40 MG IVP (10:13)
[2025-01-01] MEDS: aspirin 81 mg EC Tablet PO (10:13)
[2025-01-01] MEDS: albumin 12.5 GM/50 ML VIAL IV (10:14)
[2025-01-01 12:02] LABS: Glucose Point of Care 152 mg/dL (70-110)
--- NOTE | 2025-01-01 13:29 | P.PN_ITS ---
Subjective 2 Subjective: No acute events overnight. Today morning seen laying comfortably in bed, on 1 to 2 L of oxygen supplementation saturating more than 95%. No reported nausea or vomiting. 1 bowel movement in last 24 hours. Off Levophed. Maintaining mean artery pressur documented urine output of around 850 cc. Medications: Reviewed: Yes Vitals/I&O/Wt Last Vital Signs Temp 98.3 F 01/01/25 05:00 Pulse 80 01/01/25 08:51 Resp 16 01/01/25 08:51 BP 82/49 01/01/25 07:00 Pulse Ox 97 01/01/25 08:51 O2 Del Method Nasal Cannula 01/01/25 08:51 O2 Flow Rate 2 01/01/25 08:51 FiO2 6 12/22/24 20:00 12/31/24 01/01/25 01/01/25 22:59 06:59 14:59 Intake Total 950 / 1989 2081 / 4070 Output Total 400 / 400 450 / 850 Balance 550 / 1589 1631 / 3220 Weight last 48 hrs Weight 80.5 kg Weight 79 kg Physical Exam 2 Narrative: General: Patient is awake. Disconjugate gaze. Chronically ill-appearing. Head: Poor dentition. Neck: No JVD. Cardiovascular: RRR. No gallops. Murmurs present. Lower extremities edematous. Lungs: Breath sounds are diffusely coarse. On room air. Skin: No jaundice. No rashes. Abdomen: Normal bowel sounds, abdomen soft. Small scar likely old feeding tube site. Extremities: No cyanosis or clubbing. Musculoskeletal: No erythematous joints. Neurological: Marked contracture of right arm. No myoclonus. Urinary Catheter Management: Lamb: Cath Placed During This Visit: yes Reason for Continuing Indwelling Catheter: Accurate Measurement of Urinary Output in Critically Ill Patients Urinary Catheter Date of Insertion: 12/15/24 Urinary Catheter Time of Insertion: 22:30 Data 01/01/25 04:45 01/01/25 06:11 A&P Assessment and plan (1) Dysphagia: Continue n.p.o. status Continue speech therapy Patient reportedly not a candidate for PEG due to large hiatal hernia. Open jejunostomy tube would be an option but carries significant risk as this is a much larger procedure with high risk of bleeding while being on DAPT on a chronically ill patient who does not follow commands at baseline who just had STEMI requiring ongoing dual antiplatelet therapy. Holding dual antiplatelet therapy carry significant risk of recurrent myocardial infarction, instent rethrombosis, heart failure and . Patient's quality of life seems very poor and is not expected to ever improve. Concern that patient might pull on the jejunostomy tube as well given poor mentation. He does have h/o pulling PEG tubes in the past. Will need to discuss further with DPOA/state appointed gaurdian. Discussed with the state appointed guardian. Awaiting wishes before further treatment plans. (2) Acute kidney injury: Patient creatinine seems to be stabilizing around 2.5-2.7. Uremia stable. Medical reconciliation done for nephrotoxic drugs. Improvement in hypernatremia and hypokalemia. Strict input output charting, daily weights. Continued Lamb catheterization. Monitor BMP every 12 hours. Does have oliguria. Albumin 25 g one-time followed by Lasix 40 mg IV. (3) Hypernatremia: Sodium improved to 144. Change free water flushes to 250 cc every 6 hour. Continue with D5 at 50 cc/h. BMP Q12h (4) Congestive heart failure: Echocardiogram shows EF of 20% with regional wall motion abnormality. Will plan for limited echocardiogram. Strict I's and O's, daily weights Continue beta-dawson (5) Aspiration pneumonia: Status post antibiotics Continue aspiration precautions Feeding tube issue as above. Starting tube feeds through dobhoffs today. (6) Atrial fibrillation with RVR: Continue amiodarone at 200mg daily for now Holding off on metoprolol tartrate given need for Levophed 24 hours ago. If remains off Levophed will plan to restart metoprolol at 12.5 mg twice daily depending on blood pressures. Not on full dose anticoagulation due to history of GI bleed Continues telemetry monitoring (7) ST elevation myocardial infarction (STEMI): Cardiology following, appreciate recommendations LAD and RCA stented Continue DAPT and high intensity statin (8) Hypokalemia: Replace as needed (9) Developmental delay, profound: Mentation seems at baseline Has a guardian who makes his decisions - Nic Bryson @ [employer] Coord[employer] in [place] @ [phone] (10) Acute respiratory failure: Resolved. Post Extubation. Patient on room air Remains at risk for recurrent aspiration (11) Goals of care, counseling/discussion: (12) Guardianship: (13) Cardiogenic shock: Resolved. Last use of Levophed on 12/31. Continue to monitor with target mean artery pressure over 65. Plan Goals of care discussion: Had detailed goals of care discussion with patient's caregiver from residential at bedside. Patient has a state appointed guardian Mr. Nic Bryson. Tried calling Nic on the cell phone but not able to get in touch. As per the caregiver at bedside. Patient is dependent completely on for ADLs. He is bedbound. We discussed in detail that unfortunately there is a high chance of patient not surviving and even if he does there is a high likelihood of him having worsening quality of life than what he already has. Discussed about CODE STATUS. Discussed that unfortunately if patient has to have cardiac arrest chances of his survival and quality of life will go even poor than what they are right now. Caregivers will discuss further with patient's DPOA about goals of care and would let us know. Will try to call Mr. Nic Bryson again on the cell phone. 12/17: Was able to get in touch with Nic Adelaide/state appointed guardian for Mr. Lucas. Had a detailed discussion regarding prognosis, concerns for possible arrhythmia given significant cardiomyopathy with EF of 20% in setting of cardiogenic shock and acute [place]. For now the guardian would want patient to remain full code, continue with current care. 12/30: Had further goals of care discussion with patient's guardian Nic Bryson over the phone. We discussed patient has been extubated and since then seems to be getting back to his baseline mentation though he is not able to feed himself and not able to follow directions. Discussed for now he has an NG tube for hydration and diet which he has pulled out multiple times and had to be replaced along with pulling of Discussed going further for nutrition Peg tube is not an option given significant hiatal hernia as per surgical team. Discussed about need for open jejunostomy which is at risk as well given the fact that patient is on DAPT for recent STEMI post PCI status. Discussed on stopping DAPT that he is at high risk of in-stent thrombosis while doing the procedure as he is on DAPT he is at high risk of bleeding. We discussed about further plans of nutrition and mode of nutrition. Fashion Coordinator would like to discuss further with surgeon before making any decision. Have requested Dr. Christian Quiñonez to communicate with Nic Bryson Plan for the day: IV albumin at 40 mg IV Lasix as above. Continue with tube feeds. Changing free water flushes to 250 cc every 6 hour. Repeat BMP in afternoon to monitor sodium and potassium levels. Repeat hemoglobin and hematocrit in afternoon. Hemoglobin down to 7.5 today. Recheck iron panel. Did receive 1 g of IV iron infusion with the last 2 weeks. Target hemoglobin more than 8. If continues to remain low will plan for monitor blood transfusion. No active bleeding for now. Continue with IV Lasix 40 mg twice daily. If needed can add Carafate. Awaiting wishes from the state guardian regarding J-tube given significant dysphagia. If hemoglobin and renal functions remain stable and patient remains off pressors we will plan to transfer to [facility] today. Analgesia: Morphine 2 mg 4 hours as needed Glycemic control: Not needed, hypoglycemia protocol Nutrition: Increase Jevity 10 cc q6h with goal at 35 cc/h, Free water flushes 250 cc every 6 hours CODE STATUS: Full code. PUD prophylaxis: Protonix DVT prophylaxis: SCDs. Hemoglobin trending down hold off on heparin for now. Gaurded prognosis Continue with care at ICU Discharge plan: Patient lives at [facility]. Has significant developmental delay at baseline. Dependent on caregivers for ADLs at baseline. High concern for increased requirements on discharge. Patient might need PEG tube along with possible tracheostomy depending on clinical improvement. Patient will need prolonged physical therapy. Discussed in detail with patient's caregivers about possible transition to LTAC once patient is more stable. Patient was accepted to LTAC but unfortunately has been declined now as he has been extubated. For now we will continue the care. Possible discharge to SNF vs back to [facility]. This documentation was created by [employer] manager hospitality software. Every effort was made to ensure accuracy of manager hospitality. Any obvious errors or omissions should be clarified with the author of the document. PDMP PDMP Reviewed: Not Reviewed Attestations 2 Medical Necessity Statement*: Requires further hospitalization for management of significant dysphagia while decisions are made for J-tube placement, AKANKSHA in a patient admitted for cardiogenic shock post STEMI leading to multiorgan dysfunction with baseline severe mental delay with state appointed guardian Diagnoses Dysphagia R13.10 Acute kidney injury N17.9 Hypernatremia E87.0 Congestive heart failure I50.9 Aspiration pneumonia J69.0 Atrial fibrillation with RVR I48.91 ST elevation myocardial infarction (STEMI) I21.3 Hypokalemia E87.6 Developmental delay, profound R62.50 Acute respiratory failure J96.00 Goals of care, counseling/discussion Z71.89 Guardianship Cardiogenic shock R57.0
--- NOTE | 2025-01-01 15:15 | P.PN_ITS ---
<Statement entered by Bharathi Downey MD - 01/02/25 00:15> Patient was evaluated and cared for in conjunction with an advanced practice practitioner. I personally examined the patient and reviewed the chart and all pertinent data including imaging, telemetry, and laboratory results. I discussed the patient in detail with the advanced practice practitioner. Please see their note for complete H&P testing result and agreed upon plan of care for the patient. Subjective 2 Subjective: Patient is not requiring Levophed. He seems more alert today. Vitals/I&O/Wt Last Vital Signs Temp 98.3 F 01/01/25 05:00 Pulse 80 01/01/25 08:51 Resp 16 01/01/25 08:51 BP 82/49 01/01/25 07:00 Pulse Ox 97 01/01/25 08:51 O2 Del Method Nasal Cannula 01/01/25 08:51 O2 Flow Rate 2 01/01/25 08:51 FiO2 6 12/22/24 20:00 01/01/25 01/01/25 01/01/25 06:59 14:59 22:59 Intake Total 2081 / 4070 Output Total 450 / 850 Balance 1631 / 3220 Weight last 48 hrs Weight 177 lb 7.554 oz Weight 174 lb 2.643 oz Physical Exam 2 Narrative: General: No apparent distress HENMT: normoceophalic Respiratory: Normal respiratory effort, clear to auscultation bilaterally throughout all lung shell, no use of accessory muscles Cardio: No JVD, regular rate, regular rhythm, S1 S2 normal, no murmurs, peripheral pulses 2+ radial palpated bilaterally Extremities: normal, normal capillary refill, no cyanosis, trace edema bilateral dorsal aspect of the feet Psych: patient is nonverbal at baseline Skin: No rashes or lesions noted, no wounds Urinary Catheter Management: Lamb: Cath Placed During This Visit: yes Reason for Continuing Indwelling Catheter: Accurate Measurement of Urinary Output in Critically Ill Patients Urinary Catheter Date of Insertion: 12/15/24 Urinary Catheter Time of Insertion: 22:30 Data 01/01/25 04:45 01/01/25 06:11 A&P Assessment and plan (1) ST elevation myocardial infarction (STEMI): (2) Atrial fibrillation with RVR: (3) Congestive heart failure: Plan Continue amio. Continue aspirin and Plavix due to recent stent. H&H lower at 7.5/25.8 w/o obvious s/s of bleeding. No changes from a cardiology standpoint. PDMP PDMP Reviewed: Not Reviewed Attestations 2 Medical Necessity Statement*: Deferred to primary care team. Coding Level of Care Code Acute Code for [facility] Diagnoses ST elevation myocardial infarction (STEMI) I21.3 Atrial fibrillation with RVR I48.91 Congestive heart failure I50.9
[2025-01-01 15:56] LABS: Basophils # 0.1 10^3/uL (0.0-0.1); Basophils % 0.6 %; Eosinophils # 0.3 10^3/uL (0.0-0.8); Eosinophils % 2.2 %; Hematocrit 24.6 % (37-53); Lymphocytes # 1.2 10^3/uL (0.8-4.8); Lymphocytes % 8.1 %; Mean Corpuscular HGB Conc 29.7 g/dL (30-55); Mean Corpuscular Hemoglobin 26.4 pg (27-33); Mean Corpuscular Volume 89.1 fl (82-101); Mean Platelet Volume 13.3 fL (7.4-10.4); Monocytes # 0.6 10^3/uL (0.2-0.9); Neutrophils # 12.82 10^3/uL (1.8-7.7); Neutrophils % 84.6 %; Nucleated Red Blood Cells % 0 %; Platelet Count 226 10^3/cmm (157-399); Red Blood Count 2.76 10^6/uL (3.85-5.65); Red Cell Distribution Width 21.4 % (12.1-15.1); White Blood Count 15.17 10^3/uL (3.29-11.43)
[2025-01-01 16:17] LABS: Alanine Aminotransferase 40 U/L (0-41); Albumin Level 3.2 g/dL (3.5-5.2); Alkaline Phosphatase 84 U/L (40-130); Anion Gap 17.5 (5-19); Aspartate Amino Transferase 38 U/L (0-40); Blood Urea Nitrogen 45 mg/dL (8-23); Calcium 8.1 mg/dL (8.5-10.5); Carbon Dioxide 21 mmol/L (22-29); Chloride 110 mmol/L (98-107); Creatinine Clr Calc Pharmacy 29.0573; Glomerular Filtration Rate 23.7 mL/min (90-130); Glucose 122 mg/dL (65-115); Iron 21 ug/dL (59-158); Osmolality Calculated 313 mOsm/kg (285-295); Percent Saturation 19.6 % (20-50); Potassium 3.5 mmol/L (3.5-5.1); Sodium 145 mmol/L (136-145); Total Bilirubin 0.4 mg/dL (0.15-1.2); Total Iron Binding Capacity 107 mcg/dl; Total Protein 7.2 g/dL (6.6-8.7); Unsaturated Iron Binding 86 ug/dL (112-347)
[2025-01-01 16:19] LABS: Slide Review Slide Review Perform
[2025-01-01 17:37] LABS: Glucose Point of Care 117 mg/dL (70-110)
--- NOTE | 2025-01-01 19:35 | PC.NURSE ---
Shift summary: Pt rests in bed throughout shift. Pt is alert, he growls , grinds his teeth on occasion. He fights blood sugar checks and growls hard. He attempted to smile. He remains on tube feeding through the Dobhoff. He is tolerating that well. Sinus rhtyhm noted on monitor, no ectopy or other rhythms noted this shift. His ulcer on his bottom is healing, Optifoam intact. He had 1050 of urine output this shift.
--- NOTE | 2025-01-01 19:54 | PC.NURSE ---
Report called to [facility], patient transferred at 1934
[2025-01-01] MEDS: sodium chloride 0.9% 100 mL Bag 50 ML IV (20:20)
[2025-01-01] MEDS: atorvastatin 40 mg Tablet 80 MG PO (20:32)
[2025-01-02] VITALS (10 sets, daily range): BP systolic 90–111; BP diastolic 55–78; PULSE 75–126; RESP 18–36; TEMP 36.5–37.7; O2SAT 90–96
[2025-01-02 00:53] LABS: Glucose Point of Care 132 mg/dL (70-110)
[2025-01-02] MEDS: dextrose 5% 1,000 ML 50 ML IV ×2 (01:01→21:27)
[2025-01-02] MEDS: heparin 5,000 unit/mL INJ 1 mL 5000 UNIT SUBCUT ×2 (04:54→17:46)
[2025-01-02 05:18] LABS: Basophils # 0.1 10^3/uL (0.0-0.1); Basophils % 0.6 %; Eosinophils # 0.3 10^3/uL (0.0-0.8); Eosinophils % 2.4 %; Hematocrit 27.9 % (37-53); Lymphocytes # 1.1 10^3/uL (0.8-4.8); Lymphocytes % 7.5 %; Mean Corpuscular HGB Conc 30.5 g/dL (30-55); Mean Corpuscular Hemoglobin 26.6 pg (27-33); Mean Corpuscular Volume 87.2 fl (82-101); Mean Platelet Volume 13.8 fL (7.4-10.4); Monocytes # 0.5 10^3/uL (0.2-0.9); Monocytes % 3.7 %; Neutrophils # 11.95 10^3/uL (1.8-7.7); Neutrophils % 85.4 %; Nucleated Red Blood Cells % 0.2 %; Platelet Count 231 10^3/cmm (157-399); White Blood Count 13.99 10^3/uL (3.29-11.43)
[2025-01-02 06:22] LABS: Glucose Point of Care 139 mg/dL (70-110)
[2025-01-02 08:05] LABS: Alanine Aminotransferase 54 U/L (0-41); Albumin Level 3.5 g/dL (3.5-5.2); Alkaline Phosphatase 104 U/L (40-130); Aspartate Amino Transferase 51 U/L (0-40); Blood Urea Nitrogen 47 mg/dL (8-23); Carbon Dioxide 18 mmol/L (22-29); Chloride 106 mmol/L (98-107); Creatinine Clr Calc Pharmacy 32.6895; Globulin 3.6 g/dL (1.3-4.6); Glomerular Filtration Rate 27.1 mL/min (90-130); Glucose 138 mg/dL (65-115); Osmolality Calculated 312 mOsm/kg (285-295); Sodium 144 mmol/L (136-145); Total Bilirubin 0.8 mg/dL (0.15-1.2); Total Protein 7.1 g/dL (6.6-8.7)
[2025-01-02 08:09] LABS: Anion Gap 24.6 (5-19); Potassium 4.6 mmol/L (3.5-5.1)
[2025-01-02] MEDS: pantoprazole 40 mg SDV IVP ×2 (10:04→20:13)
[2025-01-02] MEDS: citalopram 20 mg Tablet 10 MG PO (10:05)
[2025-01-02] MEDS: clopidogrel 75 mg Tablet PO (10:05)
[2025-01-02] MEDS: aspirin 81 mg EC Tablet PO (10:05)
[2025-01-02] MEDS: levETIRAcetam 1,000 mg/10 mL UDC 1000 MG PO ×2 (10:05→20:13)
[2025-01-02] MEDS: amiodarone 200 mg Tablet PO (10:06)
[2025-01-02] MEDS: FUROsemide 10 mg/mL SDV 4mL 40 MG IVP (10:07)
[2025-01-02 11:57] LABS: Glucose Point of Care 158 mg/dL (70-110)
--- NOTE | 2025-01-02 12:15 | FL_ITS ---
WS: [id number] Modified barium swallow, 01/02/2025 Clinical Data: Oropharyngeal dysphagia Comparison: Modified barium swallow, 12/29/2021 Fluoroscopy time: 1min [id number] # of spot films: 0 Findings: The patient demonstrated premature spillage with all consistencies. With thin liquids there was reba aspiration. However with thicker liquids and other material there was no aspiration. FL/FL barium swallow modifd [id number] Impression: 1. Premature spillage with all consistencies. 2. With thin liquids there is reba aspiration. 3. Thicker liquids and other material did not demonstrate aspiration.
--- NOTE | 2025-01-02 14:03 | P.PN_ITS ---
Subjective 2 Subjective: No acute events overnight. Patient has remained hemodynamically stable and afebrile. Remains on room air. Document urine output of around 2 L. Medications: Reviewed: Yes Vitals/I&O/Wt Last Vital Signs Temp 97.7 F 01/02/25 11:46 Pulse 75 01/02/25 11:46 Resp 21 H 01/02/25 11:46 BP 93/63 01/02/25 11:46 Pulse Ox 96 01/02/25 11:46 O2 Del Method Room Air 01/02/25 11:46 O2 Flow Rate 2 01/02/25 08:54 FiO2 6 12/22/24 20:00 01/01/25 01/02/25 01/02/25 22:59 06:59 14:59 Intake Total 957 / 957 2086 / 3043 Output Total 1450 / 1450 600 / 2050 Balance -493 / -493 1486 / 993 Weight last 48 hrs Weight 80.5 kg Weight 80.5 kg Physical Exam 2 Narrative: General: Patient is awake. Disconjugate gaze. Chronically ill-appearing. Head: Poor dentition. Neck: No JVD. Cardiovascular: RRR. No gallops. Murmurs present. Lower extremities edematous. Lungs: Breath sounds are diffusely coarse. On room air. Skin: No jaundice. No rashes. Abdomen: Normal bowel sounds, abdomen soft. Small scar likely old feeding tube site. Extremities: No cyanosis or clubbing. Musculoskeletal: No erythematous joints. Neurological: Marked contracture of right arm. No myoclonus. Urinary Catheter Management: Lamb: Cath Placed During This Visit: yes Reason for Continuing Indwelling Catheter: Accurate Measurement of Urinary Output in Critically Ill Patients Urinary Catheter Date of Insertion: 12/15/24 Urinary Catheter Time of Insertion: 22:30 Data 01/02/25 04:52 01/02/25 07:23 A&P Assessment and plan (1) Dysphagia: Continue n.p.o. status Continue speech therapy Patient reportedly not a candidate for PEG due to large hiatal hernia. Open jejunostomy tube would be an option but carries significant risk as this is a much larger procedure with high risk of bleeding while being on DAPT on a chronically ill patient who does not follow commands at baseline who just had STEMI requiring ongoing dual antiplatelet therapy. Holding dual antiplatelet therapy carry significant risk of recurrent myocardial infarction, instent rethrombosis, heart failure and . Patient's quality of life seems very poor and is not expected to ever improve. Concern that patient might pull on the jejunostomy tube as well given poor mentation. He does have h/o pulling PEG tubes in the past. Will need to discuss further with DPOA/state appointed gaurdian. Discussed with the state appointed guardian. Awaiting wishes before further treatment plans. (2) Acute kidney injury: Patient creatinine seems to be stabilizing around 2.5-2.7. Uremia stable. Medical reconciliation done for nephrotoxic drugs. Improvement in hypernatremia and hypokalemia. Strict input output charting, daily weights. Continued Lamb catheterization. Monitor BMP every 12 hours. Does have oliguria. Albumin 25 g one-time followed by Lasix 40 mg IV. (3) Hypernatremia: Sodium improved to 144. Change free water flushes to 250 cc every 6 hour. Continue with D5 at 50 cc/h. BMP Q12h (4) Congestive heart failure: Echocardiogram shows EF of 20% with regional wall motion abnormality. Will plan for limited echocardiogram. Strict I's and O's, daily weights Continue beta-dawson (5) Aspiration pneumonia: Status post antibiotics Continue aspiration precautions Feeding tube issue as above. Starting tube feeds through [facility] today. (6) Atrial fibrillation with RVR: Continue amiodarone at 200mg daily for now Holding off on metoprolol tartrate given need for Levophed 24 hours ago. If remains off Levophed will plan to restart metoprolol at 12.5 mg twice daily depending on blood pressures. Not on full dose anticoagulation due to history of GI bleed Continues telemetry monitoring (7) ST elevation myocardial infarction (STEMI): Cardiology following, appreciate recommendations LAD and RCA stented Continue DAPT and high intensity statin (8) Hypokalemia: Replace as needed (9) Developmental delay, profound: Mentation seems at baseline Has a guardian who makes his decisions - Nic Bryson @ [employer] in [place] @ [phone] (10) Acute respiratory failure: Resolved. Post Extubation. Patient on room air Remains at risk for recurrent aspiration (11) Goals of care, counseling/discussion: (12) Guardianship: (13) Cardiogenic shock: Resolved. Last use of Levophed on 12/31. Continue to monitor with target mean artery pressure over 65. Plan Goals of care discussion: Had detailed goals of care discussion with patient's caregiver [facility] at bedside. Patient has a state appointed guardian Mr. Nic Bryson. Tried calling Nic on the cell phone but not able to get in touch. As per the caregiver at bedside. Patient is dependent completely on for ADLs. He is bedbound. We discussed in detail that unfortunately there is a high chance of patient not surviving and even if he does there is a high likelihood of him having worsening quality of life than what he already has. Discussed about CODE STATUS. Discussed that unfortunately if patient has to have cardiac arrest chances of his survival and quality of life will go even poor than what they are right now. Caregivers will discuss further with patient's DPOA about goals of care and would let us know. Will try to call Mr. Nic Bryson again on the cell phone. 12/17: Was able to get in touch with Nic Bryson/state appointed guardian for Mr. Lucas. Had a detailed discussion regarding prognosis, concerns for possible arrhythmia given significant cardiomyopathy with EF of 20% in setting of cardiogenic shock and acute [place]. For now the guardian would want patient to remain full code, continue with current care. 12/30: Had further goals of care discussion with patient's guardian Nic Bryson over the phone. We discussed patient has been extubated and since then seems to be getting back to his baseline mentation though he is not able to feed himself and not able to follow directions. Discussed for now he has an NG tube for hydration and diet which he has pulled out multiple times and had to be replaced along with pulling of Discussed going further for nutrition Peg tube is not an option given significant hiatal hernia as per surgical team. Discussed about need for open jejunostomy which is at risk as well given the fact that patient is on DAPT for recent STEMI post PCI status. Discussed on stopping DAPT that he is at high risk of in-stent thrombosis while doing the procedure as he is on DAPT he is at high risk of bleeding. We discussed about further plans of nutrition and mode of nutrition. [employer] would like to discuss further with surgeon before making any decision. Have requested Dr. Christian Quiñonez to communicate with Nic Bryson Plan for the day: Post monitor blood transfusion yesterday. Hemoglobin at 8.5. Continue to monitor hemoglobin daily for now. Hypernatremia remains resolved. Continue to monitor daily. Continue with free water flushes 250 cc every 6 hour along with D5W at 50 cc/h. Will plan for another 40 mg of IV Lasix dose. Monitor blood pressures. Depending on that we will plan for IV Lasix. Continue with current dose of amiodarone. Depending on the blood pressure within next 24 hours we will plan to add low-dose metoprolol 12.5 mg twice daily. Speech therapy. Modified barium swallow. Goals of care discussion: 12/31: Had a detailed discussion with patient's caregiver from previous shift house yesterday evening. As per the caregiver patient seems to be back to his baseline mentation. As per the caregiver usually he has had at current mentation and he [facility]. Discussed the same with speech therapist. Unfortunately patient will always be at a risk of aspiration given poor mentation. He is at a high risk of aspiration right now than his baseline because of current medical condition given congestive heart failure. Given the above discussion for now we will plan for modified barium swallow, and will advance diet accordingly. Will request caregivers from previous shift house to come in house and see if patient can be fed without any concerns for aspiration or hypoxia. If patient is able to tolerate orally, and case patient's caregiver, state nutrition representative team including Mr. Nic Bryson and Ms. Keily Celaya understands the risk with oral diet with current mentation of high risk of aspiration or choking versus possible need of jejunostomy tube given high risk of bleeding being on DAPT are agreeable with plan to discharge back to [facility] once he is able to tolerate orally. Discussed the same with state nutrition representative deputy Mrs. Keily Celaya. As per her Mr. Nic Bryson is currently unavailable in his office today. She is agreeable to the plan of possible discharge back to [facility] if he is able to tolerate orally. Analgesia: Morphine 2 mg 4 hours as needed Glycemic control: Not needed, hypoglycemia protocol Nutrition: Continue Jevity with goal at 35 cc/h, Free water flushes 250 cc every 6 hours CODE STATUS: Full code. PUD prophylaxis: Protonix DVT prophylaxis: SCDs. Hemoglobin trending down hold off on heparin for now. Gaurded prognosis Continue with care at ICU Discharge plan: Patient lives at [facility]. Has significant developmental delay at baseline. Dependent on caregivers for ADLs at baseline. High concern for increased requirements on discharge. Patient might need PEG tube along with possible tracheostomy depending on clinical improvement. Patient will need prolonged physical therapy. Discussed in detail with patient's caregivers about possible transition to LTAC once patient is more stable. Patient was accepted to LTAC but unfortunately has been declined now as he has been extubated. For now we will continue the care. Possible discharge to SNF vs back to [facility]. This documentation was created by [employer] medical imaging technologist software. Every effort was made to ensure accuracy of medical imaging technologist. Any obvious errors or omissions should be clarified with the author of the document. PDMP PDMP Reviewed: Not Reviewed Attestations 2 Medical Necessity Statement*: Requires further hospitalization for management of dysphagia as patient is on tube feeds because of severe mental delay while permanent option to deliver nutrition is sought in a patient admitted with cardiogenic shock post STEMI complicated by multiorgan dysfunction with acute kidney injury, hypernatremia Diagnoses Dysphagia R13.10 Acute kidney injury N17.9 Hypernatremia E87.0 Congestive heart failure I50.9 Aspiration pneumonia J69.0 Atrial fibrillation with RVR I48.91 ST elevation myocardial infarction (STEMI) I21.3 Hypokalemia E87.6 Developmental delay, profound R62.50 Acute respiratory failure J96.00 Goals of care, counseling/discussion Z71.89 Guardianship Cardiogenic shock R57.0
[2025-01-02 17:12] LABS: Glucose Point of Care 126 mg/dL (70-110)
[2025-01-02] MEDS: atorvastatin 40 mg Tablet 80 MG PO (20:13)
--- NOTE | 2025-01-02 21:35 | PM.PN ---
Subjective Subjective: No overnight event Medications: Reviewed: Yes Vitals/I&O/Wt Last Vital Signs Temp 97.7 F 01/02/25 11:46 Pulse 126 H 01/02/25 16:00 Resp 36 H 01/02/25 16:00 BP 111/74 01/02/25 16:00 Pulse Ox 90 01/02/25 16:00 O2 Del Method Nasal Cannula 01/02/25 16:00 O2 Flow Rate 2 01/02/25 08:54 FiO2 6 12/22/24 20:00 01/02/25 01/02/25 01/02/25 06:59 14:59 22:59 Intake Total 2086 / 3043 1000 / 1000 Output Total 600 / 2050 450 / 450 900 / 1350 Balance 1486 / 993 -450 / -450 100 / -350 Weight last 48 hrs Weight 177 lb 7.554 oz Weight 177 lb 7.554 oz Physical Exam Const: OTHER: GENERAL: Patient is arousable but disoriented HEART: Regular S1 and S2. No murmur, rub or gallop. LUNGS: Decreased breath sounds with crackling sound bilaterally. CENTRAL NERVOUS SYSTEM: Cannot assess due to sedation EXTREMITIES: Lower extremities with out edema bilaterally. Contractures Urinary Catheter Management: Lamb: Cath Placed During This Visit: yes Reason for Continuing Indwelling Catheter: Accurate Measurement of Urinary Output in Critically Ill Patients Urinary Catheter Date of Insertion: 12/15/24 Urinary Catheter Time of Insertion: 22:30 Data 01/02/25 04:52 01/02/25 07:23 A&P Assessment and plan (1) ST elevation myocardial infarction (STEMI): (2) Atrial fibrillation with RVR: (3) Congestive heart failure: Plan Continue dual antiplatelet therapy statin PDMP PDMP Reviewed: Not Reviewed Attestations Medical Necessity Statement*: As per medical team Coding Level of Care Code Acute Code for [facility] Diagnoses ST elevation myocardial infarction (STEMI) I21.3 Atrial fibrillation with RVR I48.91 Congestive heart failure I50.9
[2025-01-02 23:39] LABS: Glucose Point of Care 142 mg/dL (70-110)
[2025-01-03] VITALS (9 sets, daily range): BP systolic 91–146; BP diastolic 55–98; PULSE 82–89; RESP 18–24; TEMP 36.4–37.4; O2SAT 90–100
[2025-01-03] MEDS: heparin 5,000 unit/mL INJ 1 mL 5000 UNIT SUBCUT (04:10)
[2025-01-03 05:01] LABS: Glucose Point of Care 144 mg/dL (70-110)
[2025-01-03 05:33] LABS: Basophils # 0.1 10^3/uL (0.0-0.1); Basophils % 0.6 %; Eosinophils # 0.3 10^3/uL (0.0-0.8); Eosinophils % 2.1 %; Hematocrit 31.1 % (37-53); Lymphocytes # 1.2 10^3/uL (0.8-4.8); Lymphocytes % 8.8 %; Mean Corpuscular HGB Conc 30.9 g/dL (30-55); Mean Corpuscular Hemoglobin 27.2 pg (27-33); Mean Corpuscular Volume 88.1 fl (82-101); Monocytes # 0.7 10^3/uL (0.2-0.9); Neutrophils # 11.21 10^3/uL (1.8-7.7); Neutrophils % 82.9 %; Nucleated Red Blood Cells % 0 %; Platelet Count 246 10^3/cmm (157-399); Red Blood Count 3.53 10^6/uL (3.85-5.65); Red Cell Distribution Width 20.1 % (12.1-15.1); White Blood Count 13.51 10^3/uL (3.29-11.43)
[2025-01-03 05:57] LABS: Alanine Aminotransferase 65 U/L (0-41); Albumin Level 3.3 g/dL (3.5-5.2); Alkaline Phosphatase 105 U/L (40-130); Anion Gap 18.6 (5-19); Aspartate Amino Transferase 55 U/L (0-40); Blood Urea Nitrogen 46 mg/dL (8-23); Calcium 7.9 mg/dL (8.5-10.5); Carbon Dioxide 23 mmol/L (22-29); Chloride 104 mmol/L (98-107); Creatinine Clr Calc Pharmacy 31.3819; Globulin 4.5 g/dL (1.3-4.6); Glomerular Filtration Rate 25.9 mL/min (90-130); Glucose 120 mg/dL (65-115); Osmolality Calculated 305 mOsm/kg (285-295); Potassium 4.6 mmol/L (3.5-5.1); Sodium 141 mmol/L (136-145); Total Bilirubin 0.5 mg/dL (0.15-1.2); Total Protein 7.8 g/dL (6.6-8.7)
[2025-01-03] MEDS: pantoprazole 40 mg SDV IVP (07:58)
[2025-01-03] MEDS: amiodarone 200 mg Tablet PO (07:58)
[2025-01-03] MEDS: levETIRAcetam 1,000 mg/10 mL UDC 1000 MG PO (07:58)
[2025-01-03] MEDS: clopidogrel 75 mg Tablet PO (07:59)
[2025-01-03] MEDS: aspirin 81 mg EC Tablet PO (07:59)
[2025-01-03] MEDS: citalopram 20 mg Tablet 10 MG PO (07:59)
[2025-01-03] MEDS: metoprolol tartrate 25 mg Tablet 12.5 MG PO (08:36)
--- NOTE | 2025-01-03 08:43 | PC.NURSE ---
Possible discharge to day. Dr Marin in room. Received verbal order to stop fluids, feeding and remove de la cruz catheter. Will get BMP at 1600 as well.
--- NOTE | 2025-01-03 08:50 | P.DS_ITS ---
Discharge Providers Date of Admission: 12/15/24 17:34 Date of Discharge: January 03, 2025 Attending Provider at Admission: Bharathi Downey MD Attending Provider at Discharge: Shon Marin MD Consults: Cardiology: Dr. Downey Surgery: Dr. Christian Quiñonez Primary Care Provider: MANDI Stewart Diagnoses at Discharge Discharge Diagnosis (1) ST elevation myocardial infarction (STEMI): Status: Acute (2) Atrial fibrillation with RVR: Status: Acute (3) Congestive heart failure: Status: Acute (4) Guardianship: Status: Acute (5) Goals of care, counseling/discussion: Status: Acute (6) Cardiogenic shock: Status: Acute (7) Dysphagia: Status: Acute (8) Acute kidney injury: Status: Acute (9) Hypernatremia: Status: Acute (10) Hypokalemia: Status: Acute (11) Acute anemia: Status: Acute (12) Developmental delay, profound: Status: Acute (13) Aspiration into airway: Status: Acute (14) Acute respiratory failure: Status: Acute Reason for Visit Reason for Visit: stemi Brief History: Jorge Luis Lucas is a 69 year old male With past medical history of developmental delay under guardianship of the state, seizures, agitation, bradycardia, GI bleed, anemia, thrombocytopenia, ARDS, [place] [facility] resident who is normally not alert to self as per previous notes, history of pulmonary embolism on Eliquis was brought into the hospital today with complaint of chest pain however patient is not following any commands at this time. He is unable to communicate. He was able to shake his head and move. There was concern for not being able to protect his airway and risk of aspiration therefore patient was intubated for airway protection. In the ER he was diagnosed with ST elevation ID. Patient to go to [facility] shortly. Cardiology is consulted. History is obtained from chart. When seen by hospitalist patient is intubated. Hospital Course Hospital Course Patient was admitted to the hospital further evaluation and management of cardiogenic shock in setting of ST elevation ID. On admission cardiology was consulted and he underwent cardiac angiogram which showed 100% ostially occluded LAD, 80% stenosis of large caliber RCA. He underwent PCI to LAD with 3 NICOLÁS, balloon angioplasty of diagonal, PCI to RCA. On admission patient was in cardiac shock with respiratory failure intubated. Echocardiogram was done which showed EF of 20% with regional wall motion abnormality and grade 1 diastolic dysfunction. Patient's hospitalization was complicated by him developing multiorgan dysfunction because of cardiogenic shock. Gradually his cardiogenic shock improved. Patient did develop severe KAANKSHA and liver dysfunction. Liver dysfunction gradually resolved. He is AKANKSHA also stabilized gradually with creatinine stabilizing to around 2.5. His hospitalization was further complicated by poor mentation in setting of advanced developmental delay which led to dysphagia. Dehydration and hypernatremia. Hypernatremia was managed by free water flushes, fluid management. For dysphagia he was started on nutrition through NG tube. Due to poor mentation patient pulled out multiple NG tube and finally at the above was placed. Given concerns for dysphagia for more permanent nutrition surgery was consulted. Patient was found to have significant hiatal hernia hence could not get a PEG tube placed. Other option discussed with patient's caregiver and state appointed guardian who of jejunostomy tube. Concerns for jejunostomy tube were discussed in detail with patient's state appointed guardian at [place] Mr. Nic Bryson with concerns as patient is on dual antiplatelet therapy. Concerns were that patient can develop significant bleeding being on tablet while DAPT cannot be discontinued as in setting of recent stent placement for STEMI. While decisions were being made patient's mentation slightly improved. Which as per his caregivers is his baseline. Patient underwent modified barium swallow on 01/02 and was started on a pur?ed diet with moderately thickened fluid which she tolerated well while being fed by his caregivers on 01/03. It was discussed in detail with the caregiver that unfortunately given his poor mentation patient will always be at a risk for aspiration if he is fed by mouth while he is at a risk of bleeding if jejunostomy tube is placed. After discussions with the deputy state appointed guardian as patient is tolerating oral they would like to continue with oral diet for now knowing that he will always be at risk of both procedures. He has been discharged hemodynamically stable condition back to half-way with pur?ed diet. Caregiver has been advised in detail about aspiration precautions. It is advised for patient to have fluid restriction to less than 1500 cc of fluid with oral intake to be maintained at least more than 1 L. Discussed about necessity of continuation of dual antiplatelet therapy and regulation of medications. He is to follow-up with a PCP in 1 week for repeat BMP. Physical Exam Narrative: General: Patient is awake. Disconjugate gaze. Chronically ill-appearing. Head: Poor dentition. Neck: No JVD. Cardiovascular: RRR. No gallops. Murmurs present. Lower extremities edematous. Lungs: Breath sounds are diffusely coarse. On room air. Skin: No jaundice. No rashes. Abdomen: Normal bowel sounds, abdomen soft. Small scar likely old feeding tube site. Extremities: No cyanosis or clubbing. Musculoskeletal: No erythematous joints. Neurological: Marked contracture of right arm. No myoclonus. Urinary Catheter Management: Lamb: Cath Placed During This Visit: yes Reason for Continuing Indwelling Catheter: Accurate Measurement of Urinary Output in Critically Ill Patients Urinary Catheter Date of Insertion: 12/15/24 Urinary Catheter Time of Insertion: 22:30 Discharge Data Studies Completed and Pending Completed Studies During Hospitalization Category Date Time Status REGISTERED NURSE [employer] M[employer]ANSPLANT request for service Stat Exams 12/15/24 16:34 Completed CXRP [XR chest 1V portable 38157] Routine Exams 12/31/24 13:21 Completed CXRP [XR chest 1V portable 43295] Stat Exams 12/19/24 00:19 Completed CXRP [XR chest 1V portable 63875] Stat Exams 12/29/24 17:58 Completed Modified barium swallow [FL barium swallow modifd 19565 Exams 01/02/25 12:15 Completed ] Routine XR KUB portable 24895 Routine Exams 12/20/24 09:11 Completed XR abdomen 1V* 57279 Routine Exams 12/18/24 15:04 Completed XR abdomen 1V* 41617 Routine Exams 12/31/24 09:18 Completed XR chest 1V 39991 Routine Exams 12/31/24 05:45 Completed XR chest 1V 31680 Stat Exams 12/15/24 19:34 Completed XR chest 1V portable 73389 QAM Exams 12/17/24 06:00 Completed XR chest 1V portable 56384 QAM Exams 12/22/24 06:00 Completed XR chest 1V portable 53813 QAM Exams 12/23/24 06:00 Completed XR chest 1V portable 43512 QAM Exams 12/24/24 06:00 Completed XR chest 1V portable 93873 Routine Exams 12/16/24 01:50 Completed XR chest 1V portable 34034 Routine Exams 12/16/24 08:00 Completed XR chest 1V portable 95023 Routine Exams 12/20/24 08:38 Completed XR chest 1V portable 55548 Routine Exams 12/21/24 10:51 Completed XR chest 1V portable 35797 Routine Exams 12/29/24 18:05 Completed XR chest 1V portable 19690 Routine Exams 12/30/24 05:38 Completed XR chest 1V portable 94346 Stat Exams 12/15/24 16:19 Completed XR chest 1V portable 80239 Stat Exams 12/26/24 05:32 Completed XR chest 1V portable 34518 Stat Exams 12/27/24 19:58 Completed XR chest 1V portable 62398 Urgent Exams 12/27/24 11:19 Completed CV. echo complete* [id number] Stat Ultrasound 12/16/24 17:31 Completed Pending at discharge Category Date Time Status BMP [Basic Metabolic Panel] Timed Lab 01/03/25 16:00 Ordered Radiology Impressions KUB X-Ray 12/20/24 09:11 Impression: 1. Decrease in colonic ileus. 2. Fecal impaction no longer present. Abdomen X-Ray 12/31/24 09:18 IMPRESSION: Development of borderline gaseous distension of large and small bowel loops without significant rectal gas. These findings may be owing to severe ileus with decompression of the rectum however distal colonic obstruction is not excluded. Continued follow-up radiographs or correlation with CT of the abdomen and pelvis could be obtained for further evaluation Chest X-Ray 12/31/24 13:21 IMPRESSION: 1. LEFT PICC line with tip at the SVC/RA junction 2. Fullness in the LEFT AP window nonspecific. This could be further evaluated with chest CT. No recent chest CT comparisons. Modified Barium Swallow 01/02/25 12:15 Impression: 1. Premature spillage with all consistencies. 2. With thin liquids there is reba aspiration. 3. Thicker liquids and other material did not demonstrate aspiration. Microbiology 12/15/24 18:15 Blood Blood Culture - Final NO GROWTH AFTER 5 DAYS 12/15/24 18:18 Blood Blood Culture - Final NO GROWTH AFTER 5 DAYS 12/15/24 19:20 Sputum - Endotracheal Tube Aspirate Gram Stain - Final 12/15/24 19:20 Sputum - Endotracheal Tube Aspirate Sputum Culture - Final 12/16/24 02:50 Urine Catheterized Urine Culture - Final Laboratory Results WBC 13.51 10^3/uL (3.29-11.43) H 01/03/25 05:17 Corrected WBC Cancelled 01/01/25 04:00 RBC 3.53 10^6/uL (3.85-5.65) L 01/03/25 05:17 Hgb 9.60 g/dL (11.27-16.99) L 01/03/25 05:17 Hct 31.1 % (37-53) L 01/03/25 05:17 MCV 88.1 fl (82-101) 01/03/25 05:17 MCH 27.2 pg (27-33) 01/03/25 05:17 MCHC 30.9 g/dL (30-55) 01/03/25 05:17 RDW 20.1 % (12.1-15.1) H 01/03/25 05:17 Plt Count 246 10^3/cmm (157-399) 01/03/25 05:17 MPV 13.0 fL (7.4-10.4) H 01/03/25 05:17 Gran % Cancelled 01/01/25 04:00 Neut % (Auto) 82.9 % 01/03/25 05:17 Lymph % (Auto) 8.8 % 01/03/25 05:17 [place] % (Auto) 5.0 % 01/03/25 05:17 Eos % (Auto) 2.1 % 01/03/25 05:17 Baso % (Auto) 0.6 % 01/03/25 05:17 Reticulocyte % (Auto) 1.0 % (0.5-2.0) 12/17/24 03:17 Neut # (Auto) 11.21 10^3/uL (1.8-7.7) H 01/03/25 05:17 Lymph # (Auto) 1.2 10^3/uL (0.8-4.8) 01/03/25 05:17 [place] # (Auto) 0.7 10^3/uL (0.2-0.9) 01/03/25 05:17 Eos # (Auto) 0.3 10^3/uL (0.0-0.8) 01/03/25 05:17 Baso # (Auto) 0.1 10^3/uL (0.0-0.1) 01/03/25 05:17 Absolute Gran (auto) Cancelled 01/01/25 04:00 Nucleated RBC % (auto) 0 % 01/03/25 05:17 Nucleated RBCs # 0.0 /100WBC 01/03/25 05:17 Haptoglobin 294.0 mg/L (30-200) H 12/17/24 03:17 PT 16.10 SECONDS (12.1-14.9) H 12/16/24 06:10 INR 1.21 (0.8-1.2) H 12/16/24 06:10 APTT 101.1 SECONDS (23.9-36.7) H 12/15/24 21:14 Specimen Type Arterial 12/31/24 06:39 Sample Site Radial, right 12/31/24 06:39 ABG pH 7.42 (7.35-7.45) 12/31/24 06:39 ABG pCO2 34.6 mmHg (35-45) L 12/31/24 06:39 ABG pO2 71.3 mmHg (80.0-100.0) L 12/31/24 06:39 ABG PO2/FiO2 Ratio 254 12/31/24 06:39 ABG HCO3 22.3 mmol/L (22-26) 12/31/24 06:39 ABG O2 Saturation 94.4 12/31/24 06:39 ABG Base Excess -2.0 mmol/L (-2.0-2.0) 12/31/24 06:39 Palmer Test Pos 12/31/24 06:39 A-a O2 Gradient 11.2 mmHg (5-10) H 12/31/24 06:39 Hematocrit 24.9 % (42-52) L 12/31/24 06:39 Hgb O2 Saturation 91.6 % (95-100) L 12/31/24 06:39 Carboxyhemoglobin 1.3 %THgb (0.4-20.1) 12/31/24 06:39 Methemoglobin 1.6 % (0.4-1.5) H 12/31/24 06:39 Total Hemoglobin 8.1 g/dL (14-18) L 12/31/24 06:39 Sodium 157.0 mmol/L (131-143) H 12/31/24 06:39 Potassium 3.3 mmol/L (3.5-5.0) L 12/31/24 06:39 Glucose 138.0 mg/dL (70-115) H 12/31/24 06:39 Ionized Calcium 1.2 mmol/L (1.1-1.4) 12/31/24 06:39 O2 Delivery Device Nc 12/31/24 06:39 O2 Liters/Min 2.0 % 12/31/24 06:39 FiO2 28.0 % 12/31/24 06:39 Tidal Volume 0.50 12/22/24 04:30 PEEP 8.0 cmH20 12/22/24 04:30 Bingo Attendant ID Ed 12/31/24 06:39 Sodium 141 mmol/L (136-145) 01/03/25 05:17 Potassium 4.6 mmol/L (3.5-5.1) 01/03/25 05:17 Chloride 104 mmol/L (98-107) 01/03/25 05:17 Carbon Dioxide 23 mmol/L (22-29) 01/03/25 05:17 Anion Gap 18.6 (5-19) 01/03/25 05:17 BUN 46 mg/dL (8-23) H 01/03/25 05:17 Creatinine 2.5 mg/dL (0.7-1.2) H 01/03/25 05:17 GFR Calculation 25.9 mL/min (90-130) L 01/03/25 05:17 Glucose 120 mg/dL (65-115) H 01/03/25 05:17 POC Glucose 144 mg/dL (70-110) H 01/03/25 04:58 Estimat Average Glucose 114 12/15/24 16:35 Hemoglobin A1c 5.6 % (4.0-6.0) 12/15/24 16:35 Calculated Osmolality 305 mOsm/kg (285-295) H 01/03/25 05:17 Lactic Acid 2.1 mmol/L (0.5-2.2) 12/15/24 16:35 Lactic Acid (Sepsis) 1.0 mmol/L (0.5-2.2) 12/15/24 18:18 Calcium 7.9 mg/dL (8.5-10.5) L 01/03/25 05:17 Ionized Calcium Ahsan 1.1 mmol/L (1.1-1.4) 12/21/24 03:20 Phosphorus 2.8 mg/dL (2.5-4.5) 12/30/24 05:59 Magnesium 2.6 mg/dL (1.7-2.3) H 12/30/24 05:59 Iron 21 ug/dL (59-158) L 01/01/25 15:32 TIBC 107 mcg/dl 01/01/25 15:32 % Saturation 19.6 % (20-50) L 01/01/25 15:32 Unsat Iron Binding 86 ug/dL (112-347) L 01/01/25 15:32 Total Bilirubin 0.5 mg/dL (0.15-1.2) 01/03/25 05:17 AST 55 U/L (0-40) H 01/03/25 05:17 ALT 65 U/L (0-41) H 01/03/25 05:17 Alkaline Phosphatase 105 U/L (40-130) 01/03/25 05:17 Lactate Dehydrogenase 1088 U/L (135-225) H 12/17/24 03:17 Troponin T Baseline 4647 ng/L (0-15) H* 12/15/24 16:35 Troponin T 120 Minute 5522 ng/L (0-15) H 12/15/24 18:18 Delta Troponin T 875 ABS# (0-10) H* 12/15/24 18:18 Troponin T Hi Sens 6Hr > 25926 ng/L (0-15) H 12/15/24 22:34 Troponin T Hi Sens 6Hr Delta 5353 ng/L (0-12) H* 12/15/24 22:34 Total Protein 7.8 g/dL (6.6-8.7) 01/03/25 05:17 Albumin 3.3 g/dL (3.5-5.2) L 01/03/25 05:17 Globulin 4.5 g/dL (1.3-4.6) 01/03/25 05:17 Triglycerides 57 mg/dL (0-150) 12/15/24 16:35 Cholesterol 164 mg/dL (0-200) 12/15/24 16:35 LDL Cholesterol, Calc 96 mg/dL (50-129) 12/15/24 16:35 Total VLDL Cholesterol 11 mg/dL (0-30) 12/15/24 16:35 HDL Cholesterol 57 mg/dL (60-100) L 12/15/24 16:35 Cholesterol/HDL Ratio 2.88 mg/dL (1.0-5.00) 12/15/24 16:35 Procalcitonin 0.25 ng/mL (0-0.5) 12/15/24 16:35 TSH 1.54 uIU/mL (0.27-4.20) 12/15/24 16:35 Urine Color Dark yellow (Yellow) A 12/16/24 02:50 Urine Appearance Clear (CLEAR) 12/16/24 02:50 Urine pH 5.5 (5-7) 12/16/24 02:50 Ur Specific [place] 1.037 (1.005-1.030) H 12/16/24 02:50 Urine Protein 3+ (Negative) A 12/16/24 02:50 Urine Glucose (UA) Negative (Normal) 12/16/24 02:50 Urine Ketones Trace (Negative) 12/16/24 02:50 Urine Blood Negative (Negative) 12/16/24 02:50 Urine Nitrate Negative (Negative) 12/16/24 02:50 Urine Bilirubin 1+ (Negative) H 12/16/24 02:50 Urine Urobilinogen 1.0 mg/dL (Negative) 12/16/24 02:50 Ur Leukocyte Esterase Negative (Negative) 12/16/24 02:50 Urine RBC 0-2 /hpf (0-2) 12/16/24 02:50 Urine WBC 0-5 /hpf (0-5) 12/16/24 02:50 Ur Squamous Epith Cells 0-5 /hpf (0-5) 12/16/24 02:50 Amorphous Sediment Not Reportable 12/16/24 02:50 Urine Bacteria None seen /hpf (NONE) 12/16/24 02:50 Hyaline Casts 2.87 /lpf 12/16/24 02:50 Ur Random Sodium 15 mmol/L 12/31/24 03:00 Ur Random Potassium 44 mmol/L 12/31/24 03:00 Ur Random Chloride 10 mmol/L 12/31/24 03:00 Nasal MRSA (PCR) Mrsa detected (Negative) A 12/17/24 17:21 Vancomycin Trough 40.0 ug/mL (10-15) H* 12/17/24 23:15 Random Vancomycin 17.0 ug/mL (20.0-40.0) L 12/25/24 05:27 Blood Type A Positive 01/01/25 18:25 Rho(D) Type Rh positive 01/01/25 18:25 Antibody Screen Negative 01/01/25 18:25 Crossmatch See Detail 01/01/25 18:25 Vitals Last Vital Signs Temp 97.5 F L 01/03/25 08:00 Pulse 89 01/03/25 08:20 Resp 18 01/03/25 08:20 BP 91/55 01/03/25 08:00 Pulse Ox 100 01/03/25 08:20 O2 Del Method Nasal Cannula 01/03/25 08:20 O2 Flow Rate 3 01/03/25 08:20 FiO2 6 12/22/24 20:00 Discharge Plan Discharge Patient Disposition: Home Condition: Stable Prescriptions: New atorvastatin 40 mg Tablet 40 mg PO BEDTIME Qty: 30 0RF amiodarone [Pacerone] 200 mg Tablet 200 mg PO DAILY Qty: 30 0RF clopidogrel 75 mg Tablet 75 mg PO DAILY Qty: 30 0RF aspirin 81 mg Tablet,Delayed Release (Dr/Ec) 81 mg PO DAILY Qty: 30 0RF metoprolol tartrate 25 mg Tablet 12.5 mg PO BID@0900,2100 Qty: 30 0RF furosemide [Lasix] 40 mg tablet 40 mg PO DAILY PRN (Reason: Lower limb swelling, gain of 5 pounds) Qty: 20 0RF Continued levetiracetam 1,000 mg tablet 1,000 mg PO BID pantoprazole [Protonix] 40 mg tablet,delayed release (DR/EC) 40 mg PO BID 42 Days Qty: 84 1RF fluticasone propionate 50 mcg/actuation spray,suspension 1 spray intranasal DAILY Rx Instructions: administer into each nostril sennosides [Elizabet-melanie] 8.6 mg tablet 8.6 mg PO DAILY magnesium hydroxide [Milk of Magnesia] 400 mg/5 mL suspension 30 ml PO DAILY PRN (Reason: Constipation) dextromethorphan-guaifenesin [Tussin DM] 10-100 mg/5 mL syrup 5 ml PO Q4H PRN (Reason: Cough) multivitamin Tablet 1 tab PO DAILY lactulose 10 gram/15 mL Solution 30 ml PO DAILY acetaminophen 325 mg Tablet 325 mg PO QID PRN (Reason: pain) polyethylene glycol 3350 17 gram/dose Powder 17 g PO DAILY citalopram 10 mg Tablet 10 mg PO DAILY cetirizine 10 mg tablet 10 mg PO DAILY Fycompa 6 mg tablet 6 mg PO QAM Discontinued famotidine 20 mg Tablet 20 mg PO DAILY meloxicam 7.5 mg tablet 7.5 mg PO DAILY Discharge Orders: Discharge Order (Routine); Ordered 01/03/25 Ordered By: Shon Marin Referrals: Alecia Solorio FNP [Primary Care Provider] - 01/09/25 11:20 am Bharathi Downey MD [Physician] - 03/11/25 2:30 pm Zahra Jade FNP [Nurse Practitioner] - 01/13/25 3:00 pm Discharge Diet: As Directed Discharge Activity: Resume usual activity and Increase activity as tolerated Patient Instructions: Coronary Angioplasty (DC), Opioid Safety Activity Restrictions/Additional Instructions: Dysphagia level 4 pur?ed diet with extremely thickened liquid. Please continue to maintain aspiration precautions. Please make sure he is sitting up in chair for each meal. Make sure he is up for at least 30 to 45 minutes after each meal. Please maintain oral intake of fluid for more than 30 ounces and less than 50 ounces a day. Restrict fluid intake to less than 1500 cc, salt intake to less than 2 g daily. Advised to check his weight daily at home. Is advised that weight today would be the dry weight and if body weight increases by around 5 pounds, patient is to take an extra dose of Lasix daily till body weight comes down to weight today. If not able to come down to dry body weight in 1 week, then is to call cardiology office for further recommendations. Patient was counseled in detail to take medications regularly as prescribed. Follow-up with a primary care provider within next 1 week for a repeat BMP. Discharge Attestations Time Spent in Discharge Care*: greater than 30 min Specific Discharge Activities: educating and/or supporting family/caregiver, discussing with pcp/other providers, discussing with case assistant/social workers/dc planners, documenting/other paperwork and evaluating patient/reviewing data Status at Discharge: Cognitive status at discharge: severely impaired cognition , Behavioral status at discharge: cooperative , Functional status at discharge: wheelchair bound , Overall status at discharge: patient is back to baseline Quality Metrics Clinical Quality Measures [ Acute Myocardial Infaction { Clinical Trial Participant: No; Contraindication to aspirin: None; Aspirin prescribed; Contraindication to statin: None; Statin prescribed; Contraindication to PCI: None; PCI performed;}] Coding Level of Care Code 29046 Total time (in minutes) for Discharge: [address] elevation myocardial infarction (STEMI) I21.3 Atrial fibrillation with RVR I48.91 Congestive heart failure I50.9 Guardianship Goals of care, counseling/discussion Z71.89 Cardiogenic shock R57.0 Dysphagia R13.10 Acute kidney injury N17.9 Hypernatremia E87.0 Hypokalemia E87.6 Acute anemia D64.9 Developmental delay, profound R62.50 Aspiration into airway T17.908A Acute respiratory failure J96.00
[2025-01-03 11:30] LABS: Glucose Point of Care 122 mg/dL (70-110)
--- NOTE | 2025-01-03 15:32 | P.PN_ITS ---
<Statement entered by Bharathi Downey MD - 01/03/25 20:24> Patient was evaluated and cared for in conjunction with an advanced practice practitioner. I personally examined the patient and reviewed the chart and all pertinent data including imaging, telemetry, and laboratory results. I discussed the patient in detail with the advanced practice practitioner. Please see their note for complete H&P testing result and agreed upon plan of care for the patient. Patient is more awake and following command of the caregiver denies any complaint GENERAL: Patient is awake and oriented x3. HEART: Regular S1 and S2. No murmur, rub or gallop. LUNGS: Clear to auscultate bilaterally. CENTRAL NERVOUS SYSTEM: Grossly nonfocal. EXTREMITIES: Lower extremities with out edema bilaterally. Assessment and plan ST elevation OR status post PCI to LAD Moderate depressed left ventricular ejection fraction Continue current regimen Including dual antiplatelet therapy Subjective 2 Subjective: Patient has no changes from a cardiology standpoint. Blood pressure and heart rate stable. He does seem more alert today. Vitals/I&O/Wt Last Vital Signs Temp 97.8 F 01/03/25 12:00 Pulse 85 01/03/25 13:51 Resp 20 H 01/03/25 12:00 BP 92/59 01/03/25 12:00 Pulse Ox 92 01/03/25 12:00 O2 Del Method Room Air 01/03/25 12:00 O2 Flow Rate 3 01/03/25 08:20 FiO2 6 12/22/24 20:00 01/03/25 01/03/25 01/03/25 06:59 14:59 22:59 Intake Total 2454 / 3454 558.333 / 558.333 Output Total 800 / 2150 350 / 350 Balance 1654 / 1304 208.333 / 208.333 Weight last 48 hrs Weight 182 lb 15.739 oz Weight 177 lb 7.554 oz Physical Exam 2 Narrative: General: No apparent distress HENMT: normoceophalic Respiratory: Normal respiratory effort, clear to auscultation bilaterally throughout all lung shell, no use of accessory muscles Cardio: No JVD, regular rate, regular rhythm, S1 S2 normal, no murmurs, peripheral pulses 2+ radial palpated bilaterally Extremities: normal, normal capillary refill, no cyanosis, trace edema bilateral dorsal aspect of the feet Psych: patient is nonverbal at baseline Skin: No rashes or lesions noted, no wounds Urinary Catheter Management: Lamb: Cath Placed During This Visit: yes, but has since been removed by the nurse Reason for Continuing Indwelling Catheter: Accurate Measurement of Urinary Output in Critically Ill Patients Urinary Catheter Date of Insertion: 12/15/24 Urinary Catheter Time of Insertion: 22:30 Date Urinary Catheter Removed: 01/03/25 Time Urinary Catheter Discontinued: 09:26 Data 01/03/25 05:17 01/03/25 05:17 A&P Assessment and plan (1) ST elevation myocardial infarction (STEMI): (2) Atrial fibrillation with RVR: (3) Congestive heart failure: Plan Continue dual antiplatelet therapy statin. No further changes at this time. PDMP PDMP Reviewed: Not Reviewed Attestations 2 Medical Necessity Statement*: Deferred to primary care. Coding Level of Care Code Acute Code for [facility] Fwd Diagnoses ST elevation myocardial infarction (STEMI) I21.3 Atrial fibrillation with RVR I48.91 Congestive heart failure I50.9
--- NOTE | 2025-01-03 15:35 | USCV_ITS ---
Jorge Luis Lucas Age: 69 Gender: M : 1955 Exam Date: 01/03/2025 16:06 Ordering Phys: Shon Marin MD Technologist: Merritt Noel Exam Location: [facility] [place] Indication: recent stemi BP: 92 / 59 HR: Rhythm: Sinus Technical Quality: Adequate MEASUREMENTS (Male / Female) Normal Values 2D ECHO LVOT Diameter 2.1 cm LV Ejection Fraction MOD 4C 46.2 % LV Ejection Fraction MOD 2C 55.3 % LV Ejection Fraction 2C AL 54.8 % LA Diameter 4.1 cm RA Systolic Volume 4C AL 33.0 ml RA Systolic Volume 4C MOD 34.1 ml LA Sys Volume AL 56.8 cm cubed LA Sys Volume Index AL 27.8 cm cubed/m squared Aorta at Sinotubular Diameter 2.6 cm IVC Diameter 1.8 cm M-MODE LA Ao Ratio MM 1.5 AV Cusp Separation MM 1.2 cm FINDINGS Left Ventricle Moderately increased left ventricular cavity size. Severely decreased left ventricular systolic function. Left ventricular ejection fraction is estimated at 33 %. There appeared to be mid to distal anterior and apical wall severe hypokinesis. It is consistent with ischemic heart disease in LAD territory. Right Ventricle Right Atrium Left Atrium Mitral Valve Aortic Valve Tricuspid Valve Pulmonic Valve Pericardium Aorta IVC CONCLUSIONS Limited echo Moderately increased left ventricular cavity size. Severely decreased left ventricular systolic function. Left ventricular ejection fraction is estimated at 33 %. There appeared to be mid to distal anterior and apical wall severe hypokinesis. It is consistent with ischemic heart disease in LAD territory. There is no pericardial effusion. Bharathi Downey MD (Electronically Signed) Final Date: 04 January 2025 18:47 S
[2025-01-03 17:22] LABS: Glucose Point of Care 111 mg/dL (70-110)
[2025-01-03 17:45] LABS: Anion Gap 19.2 (5-19); Blood Urea Nitrogen 45 mg/dL (8-23); Calcium 8.5 mg/dL (8.5-10.5); Carbon Dioxide 18 mmol/L (22-29); Chloride 108 mmol/L (98-107); Creatinine Clr Calc Pharmacy 33.1119; Glomerular Filtration Rate 27.1 mL/min (90-130); Glucose 114 mg/dL (65-115); Osmolality Calculated 304 mOsm/kg (285-295); Potassium 4.2 mmol/L (3.5-5.1); Sodium 141 mmol/L (136-145)
--- NOTE | 2025-01-03 18:44 | PC.NURSE ---
Patient discharged to home. Instruction provided to caregiver and faxed to [facility]. Caregiver verbalized complete understanding. Patient cleaned, dressing changed to sacrum, dressed and placed on own sling for casi lift to personal wheelchair. Patient taken by wheelchair by caregiver to private vehicle.
== END 2025-01-03 18:49 | disposition home or self-care (01) | DRG 321 ==
LOC: ER 16:36 → CCL 16:39 → ICU 17:35 → CSU 01-01 19:53
PROVIDERS: Internal Medicine; Admitting Provider Internal Medicine Cardiovascular Disease; Emergency Provider Emergency Medicine; PCP Nurse Practitioner Family; Visit Provider Student in an Organized Health Care Education/Training Program
PROC: 027137Z Dilation of Coronary Artery, Two Arteries with Four or More Drug-eluting Intraluminal Devices, Percutaneous Approach (ICD-10-PCS; principal; 2024-12-15 16:30)
PROC: 027137Z Dilation of Coronary Artery, Two Arteries with Four or More Drug-eluting Intraluminal Devices, Percutaneous Approach (ICD-10-PCS; 2024-12-15 16:30)
DX: I21.02 ST elevation (STEMI) myocardial infarction involving left anterior descending coronary artery (principal); I50.21 Acute systolic (congestive) heart failure; R57.0 Cardiogenic shock; J69.0 Pneumonitis due to inhalation of food and vomit; N17.9 Acute kidney failure, unspecified; E87.0 Hyperosmolality and hypernatremia; E87.20 Acidosis, unspecified; I42.9 Cardiomyopathy, unspecified; I48.91 Unspecified atrial fibrillation; R13.10 Dysphagia, unspecified; D64.9 Anemia, unspecified; R62.50 Unspecified lack of expected normal physiological development in childhood; Z86.711 Personal history of pulmonary embolism; Z79.01 Long term (current) use of anticoagulants; I25.10 Atherosclerotic heart disease of native coronary artery without angina pectoris; K76.89 Other specified diseases of liver; Z22.322 Carrier or suspected carrier of Methicillin resistant Staphylococcus aureus; R45.1 Restlessness and agitation; G40.909 Epilepsy, unspecified, not intractable, without status epilepticus; Z74.01 Bed confinement status; Z87.01 Personal history of pneumonia (recurrent); Z86.16 Personal history of COVID-19; Z79.82 Long term (current) use of aspirin; Z79.02 Long term (current) use of antithrombotics/antiplatelets; K44.9 Diaphragmatic hernia without obstruction or gangrene; E86.0 Dehydration
CPT/HCPCS: 36415; 36416; 36430; 36573; 36592; 36600; 51702; 71045; 74018; 74230; 80048; 80051; 80053; 80061; 80069; 80202; 81001; 82330; 82436; 82803; 82805; 82962; 83010; 83036; 83540; 83550; 83605; 83615; 83735; 84100; 84133; 84145; 84300; 84443; 84484; 85025; 85045; 85347; 85610; 85730; 86850; 86900; 86920; 87040; 87070; 87086; 87205; 92526; 92610; 92611; 93005; 93306; 93308; 93458; 94002; 94003; 94640; 94669; 94760; 94799; 96365; 96372; 96374; 96375; 96376; 99291; 99292; A4222; C1725; C1751; C1760; C1769; C1874; C1887; C1894; C9600; C9601; G0269; J0283; J1644; J1756; J1815; J1940; J1953; J2250; J2470; J2543; J2598; J2704; J2765; J3010; J3370; J3372; J3480; J3490; J7030; J7040; J7042; J7050; J7070; P9016; P9046; P9047; Q3014; Q9967

== ENCOUNTER 2025-01-07 05:12 | Inpatient (IN) | payer MEDICAID, SELFPAY ==
[2025-01-07] VITALS (8 sets, daily range): BP systolic 119–131; BP diastolic 72–92; PULSE 81–91; RESP 14–20; TEMP 36.2; O2SAT 91–97
--- NOTE | 2025-01-07 05:15 | XRR_ITS ---
PROCEDURE INFORMATION: Exam: XR Chest Exam date and time: 01/07/2025 5:26 AM Age: 69 years old Clinical indication: Shortness of breath TECHNIQUE: Imaging protocol: Radiologic exam of the chest. Views: 1 view. COMPARISON: CR XR chest 1V portable [id number] 12/31/2024 2:06 PM FINDINGS: Lungs: Diffuse moderate interstitial prominence, this is similar to what was seen previously. This is probably due to a combination of chronic interstitial fibrosis less interstitial edema related to cardiac decompensation. Mild infiltrate developing in the left mid lung. Pleural spaces: Unremarkable. No pleural effusion. No pneumothorax. Heart/Mediastinum: See Vasculature finding. Vasculature: Moderate cardiomegaly and uncoiling of the thoracic aorta is accentuated by the AP positioning. Bones/joints: Unremarkable. XR/XR chest 1V portable [id number] IMPRESSION: 1. Mild cardiac decompensation. 2. Developing infiltrate in the left mid lung laterally.
--- NOTE | 2025-01-07 05:17 | W.ED.SOB ---
Documented by User: Marielle Casiano MD 01/07/25 05:26 HPI - SOB/Dyspnea General: Chief Complaint: General Medical Stated Complaint: LOW O2 Time Seen by Provider: 01/07/25 05:15 History of Present Illness: HPI Narrative: 69-year-old man with a history of pulmonary embolism, profound developmental delay since who lives in a skilled nursing and was sent to the emergency room by ambulance with concerns for a low pulse ox. EMS reports that when they got there they moved the pulse ox from his feet which were cold to his hands and it was normal there. Staff insisted he be sent to the emergency room for evaluation. On presentation here his pulse ox is good. However he does have a cough that sounds productive of sputum. Related Data Home Medications ?Medication ?Instructions ?Recorded ?Confirmed dextromethorphan-guaifenesin 10 5 ml PO Q4H PRN Cough 05/17/21 01/07/25 mg-100 mg/5 mL oral syrup (Tussin DM) multivitamin 1 tab PO DAILY 05/02/23 01/07/25 acetaminophen 325 mg tablet 325 mg PO QID PRN pain 05/08/23 01/07/25 citalopram 10 mg tablet 10 mg PO DAILY 05/08/23 01/07/25 lactulose 10 gram/15 mL oral 30 ml PO DAILY 05/08/23 01/07/25 solution polyethylene glycol 3350 17 17 g PO DAILY 05/08/23 01/07/25 gram/dose oral powder fluticasone propionate 50 1 spray intranasal DAILY 06/20/23 01/07/25 mcg/actuation nasal spray,suspension magnesium hydroxide 400 mg/5 mL 30 ml PO DAILY PRN Constipation 06/20/23 01/07/25 oral suspension (Milk of Magnesia) sennosides 8.6 mg tablet (Elizabet-melanie) 8.6 mg PO DAILY 06/20/23 01/07/25 levetiracetam 1,000 mg tablet 1,000 mg PO BID 08/22/23 01/07/25 cetirizine 10 mg tablet 10 mg PO DAILY 12/15/24 01/07/25 perampanel 6 mg tablet (Fycompa) 6 mg PO QAM 12/15/24 01/07/25 Previous Rx's ?Medication ?Instructions ?Recorded pantoprazole 40 mg tablet,delayed 40 mg PO BID 6 weeks #84 tabs 08/22/23 release (Protonix) amiodarone 200 mg tablet (Pacerone) 200 mg PO DAILY #30 tabs 01/03/25 aspirin 81 mg tablet,delayed 81 mg PO DAILY #30 tabs 01/03/25 release atorvastatin 40 mg tablet 40 mg PO BEDTIME #30 tabs 01/03/25 clopidogrel 75 mg tablet 75 mg PO DAILY #30 tabs 01/03/25 furosemide 40 mg tablet (Lasix) 40 mg PO DAILY PRN Lower limb 01/03/25 swelling, gain of 5 pounds #20 tabs metoprolol tartrate 25 mg tablet 12.5 mg (1/2 x 25 mg) PO 01/03/25 BID@0900,2100 #30 tabs Allergies Allergy/AdvReac Type Severity Reaction Status Date / Time TIDE LAUNDRY SOAP Allergy ALGY-Rash Uncoded 01/07/25 05:21 Review of Systems General: Reports: ROS unobtainable due to medical condition PFSH ED PFSH: Medical History Cardiogenic shock Chronic anticoagulation Discontinued due to concerns for GI bleed History of pulmonary embolism Bradycardia Acute anemia ARDS survivor Protein calorie malnutrition ARDS (adult respiratory distress syndrome) Sepsis Hypernatremia Respiratory failure with hypoxia Developmental delay, profound Transaminitis Elevated lactic acid level Thrombocytopenia Pulmonary embolism Pneumonia due to COVID-19 virus Surgical History S/P percutaneous endoscopic gastrostomy (PEG) tube placement (05/27/21) removed 05/04/2022 Social History Smoking and tobacco/nicotine status: never used tobacco/nicotine Physical Exam Narrative: EXAM NARRATIVE: General: Alert Skin: Warm, dry. Head: Normocephalic, atraumatic. Neck: Supple, trachea midline. Eye: Extraocular movements are intact. Strabismus. Ears, nose, mouth and throat: mucosa moist. Cardiovascular: Regular, Normal peripheral perfusion. Respiratory: Coarse breath sounds, frequent cough. Gastrointestinal: Soft, Nontender, Non distended Musculoskeletal: Normal ROM, no deformity. Neurological: Patient has some contractures. Unable to give any history. Developmental delay. Apparently he is at his baseline. Psychiatric: Unable to assess Course Vital Signs: Vital signs: Vital Signs Temperature 97.1 F L 01/07/25 05:14 Pulse Rate 81 01/07/25 10:39 Respiratory Rate 14 01/07/25 10:39 Blood Pressure 119/79 01/07/25 10:39 Pulse Oximetry 95 01/07/25 10:39 Oxygen Delivery Me thod Room Air 01/07/25 10:39 MDM - SOB/Dyspnea Medical Decision Making Patient care transitioned to Dr. Vazquez at shift change. Lab Data 01/07/25 05:32 01/07/25 05:58 Labs/Radiology: Radiology Impressions Chest X-Ray 01/07/25 05:15 IMPRESSION: 1. Mild cardiac decompensation. 2. Developing infiltrate in the left mid lung laterally. Laboratory Results WBC 11.66 10^3/uL (3.29-11.43) H 01/07/25 05:32 RBC 3.67 10^6/uL (3.85-5.65) L 01/07/25 05:32 Hgb 10.00 g/dL (11.27-16.99) L 01/07/25 05:32 Hct 33.9 % (37-53) L 01/07/25 05:32 MCV 92.4 fl (82-101) 01/07/25 05:32 MCH 27.2 pg (27-33) 01/07/25 05:32 MCHC 29.5 g/dL (30-55) L 01/07/25 05:32 RDW 21.8 % (12.1-15.1) H 01/07/25 05:32 Plt Count 263 10^3/cmm (157-399) 01/07/25 05:32 MPV 14.0 fL (7.4-10.4) H 01/07/25 05:32 Neut % (Auto) 76.6 % 01/07/25 05:32 Lymph % (Auto) 10.6 % 01/07/25 05:32 [place] % (Auto) 7.9 % 01/07/25 05:32 Eos % (Auto) 3.6 % 01/07/25 05:32 Baso % (Auto) 0.9 % 01/07/25 05:32 Neut # (Auto) 8.92 10^3/uL (1.8-7.7) H 01/07/25 05:32 Lymph # (Auto) 1.2 10^3/uL (0.8-4.8) 01/07/25 05:32 [place] # (Auto) 0.9 10^3/uL (0.2-0.9) 01/07/25 05:32 Eos # (Auto) 0.4 10^3/uL (0.0-0.8) 01/07/25 05:32 Baso # (Auto) 0.1 10^3/uL (0.0-0.1) 01/07/25 05:32 Nucleated RBC % (auto) 0 % 01/07/25 05:32 Nucleated RBCs # 0.0 /100WBC 01/07/25 05:32 Sodium 151 mmol/L (136-145) H 01/07/25 05:58 Potassium 4.5 mmol/L (3.5-5.1) 01/07/25 05:58 Chloride 112 mmol/L (98-107) H 01/07/25 05:58 Carbon Dioxide 23 mmol/L (22-29) 01/07/25 05:58 Anion Gap 20.5 (5-19) H 01/07/25 05:58 BUN 43 mg/dL (8-23) H 01/07/25 05:58 Creatinine 2.3 mg/dL (0.7-1.2) H 01/07/25 05:58 GFR Calculation 28.5 mL/min (90-130) L 01/07/25 05:58 Glucose 102 mg/dL (65-115) 01/07/25 05:58 Calculated Osmolality 323 mOsm/kg (285-295) H 01/07/25 05:58 Calcium 8.7 mg/dL (8.5-10.5) 01/07/25 05:58 Total Bilirubin 0.4 mg/dL (0.15-1.2) 01/07/25 05:58 AST 45 U/L (0-40) H 01/07/25 05:58 ALT 72 U/L (0-41) H 01/07/25 05:58 Alkaline Phosphatase 95 U/L (40-130) 01/07/25 05:58 Troponin T Baseline 1164 ng/L (0-15) H* 01/07/25 07:42 Total Protein 7.5 g/dL (6.6-8.7) 01/07/25 05:58 Albumin 3.1 g/dL (3.5-5.2) L 01/07/25 05:58 Globulin 4.4 g/dL (1.3-4.6) 01/07/25 05:58 Coronavirus (PCR) Negative (Negative) 01/07/25 05:10 Influenza A (PCR) Negative (Negative) 01/07/25 05:10 Influenza Type B (PCR) Negative (Negative) 01/07/25 05:10 RSV (PCR) Negative (Negative) 01/07/25 05:10 Discharge Plan Discharge Patient Disposition: Admitted As Inpatient Admit Provider: Omkar Vaughan Clinical Impression: Pneumonia, Hypernatremia, Elevated troponin I level Condition: Stable Sign Out Sign Out Data: Patient Sign Out occurred on 01/07/25 at 06:36. Patient's care was discussed, and care was transferred from Marielle Casiano MD to Josh Vazquez DO. Coding Level of Care Code ED Cable Placer for Chg Fwd Documented by User: Josh Vazquez DO 01/07/25 12:10 HPI - SOB/Dyspnea General: Chief Complaint: General Medical Stated Complaint: LOW O2 Time Seen by Provider: 01/07/25 05:15 Related Data Home Medications ?Medication ?Instructions ?Recorded ?Confirmed dextromethorphan-guaifenesin 10 5 ml PO Q4H PRN Cough 05/17/21 01/07/25 mg-100 mg/5 mL oral syrup (Tussin DM) multivitamin 1 tab PO DAILY 05/02/23 01/07/25 acetaminophen 325 mg tablet 325 mg PO QID PRN pain 05/08/23 01/07/25 citalopram 10 mg tablet 10 mg PO DAILY 05/08/23 01/07/25 lactulose 10 gram/15 mL oral 30 ml PO DAILY 05/08/23 01/07/25 solution polyethylene glycol 3350 17 17 g PO DAILY 05/08/23 01/07/25 gram/dose oral powder fluticasone propionate 50 1 spray intranasal DAILY 06/20/23 01/07/25 mcg/actuation nasal spray,suspension magnesium hydroxide 400 mg/5 mL 30 ml PO DAILY PRN Constipation 06/20/23 01/07/25 oral suspension (Milk of Magnesia) sennosides 8.6 mg tablet (Elizabet-melanie) 8.6 mg PO DAILY 06/20/23 01/07/25 levetiracetam 1,000 mg tablet 1,000 mg PO BID 08/22/23 01/07/25 cetirizine 10 mg tablet 10 mg PO DAILY 12/15/24 01/07/25 perampanel 6 mg tablet (Fycompa) 6 mg PO QAM 12/15/24 01/07/25 Previous Rx's ?Medication ?Instructions ?Recorded pantoprazole 40 mg tablet,delayed 40 mg PO BID 6 weeks #84 tabs 08/22/23 release (Protonix) amiodarone 200 mg tablet (Pacerone) 200 mg PO DAILY #30 tabs 01/03/25 aspirin 81 mg tablet,delayed 81 mg PO DAILY #30 tabs 01/03/25 release atorvastatin 40 mg tablet 40 mg PO BEDTIME #30 tabs 01/03/25 clopidogrel 75 mg tablet 75 mg PO DAILY #30 tabs 01/03/25 furosemide 40 mg tablet (Lasix) 40 mg PO DAILY PRN Lower limb 01/03/25 swelling, gain of 5 pounds #20 tabs metoprolol tartrate 25 mg tablet 12.5 mg (1/2 x 25 mg) PO 01/03/25 BID@0900,2100 #30 tabs Allergies Allergy/AdvReac Type Severity Reaction Status Date / Time TIDE LAUNDRY SOAP Allergy ALGY-Rash Uncoded 01/07/25 05:21 PFSH ED PFSH: Medical History Cardiogenic shock Chronic anticoagulation Discontinued due to concerns for GI bleed History of pulmonary embolism Bradycardia Acute anemia ARDS survivor Protein calorie malnutrition ARDS (adult respiratory distress syndrome) Sepsis Hypernatremia Respiratory failure with hypoxia Developmental delay, profound Transaminitis Elevated lactic acid level Thrombocytopenia Pulmonary embolism Pneumonia due to COVID-19 virus Surgical History S/P percutaneous endoscopic gastrostomy (PEG) tube placement (05/27/21) removed 05/04/2022 Social History Smoking and tobacco/nicotine status: never used tobacco/nicotine Course Vital Signs: Vital signs: Vital Signs Temperature 97.1 F L 01/07/25 05:14 Pulse Rate 81 01/07/25 10:39 Respiratory Rate 14 01/07/25 10:39 Blood Pressure 119/79 01/07/25 10:39 Pulse Oximetry 95 01/07/25 10:39 Oxygen Delivery Me thod Room Air 01/07/25 10:39 MDM - SOB/Dyspnea Medical Decision Making Patient care transitioned to Dr. Vazquez at shift change. Care assumed at change of shift patient is a mild white count of 11.6 with a left shift. Renal function is at his baseline. He has a mild anion gap there appears to be a pneumonia on the chest x-ray additionally he has an elevated troponin he recently had an WA it is at 1100 his second troponin did bump slightly. He had a ischemic cardiomyopathy after the WA with ejection fraction of around 35%. Discussed with hospitalist as well as with cardiology of asked cardiology to consult on the patient. EKG was read by the computer as having ST elevation looks like a D evolution from his previous ST elevation WA I did have Dr. Iniguez reviewed who is on-call for STEMI call he does not feel it is an acute STEMI. Admit to hospitalist service consult cardiology have discussed Dr. Madison and Dr. Vaughan Medical Records I reviewed the patient's medical records. Lab Data I reviewed the patient's lab results. 01/07/25 05:32 01/07/25 05:58 Labs/Radiology: Radiology Impressions Chest X-Ray 01/07/25 05:15 IMPRESSION: 1. Mild cardiac decompensation. 2. Developing infiltrate in the left mid lung laterally. Laboratory Results WBC 11.66 10^3/uL (3.29-11.43) H 01/07/25 05:32 RBC 3.67 10^6/uL (3.85-5.65) L 01/07/25 05:32 Hgb 10.00 g/dL (11.27-16.99) L 01/07/25 05:32 Hct 33.9 % (37-53) L 01/07/25 05:32 MCV 92.4 fl (82-101) 01/07/25 05:32 MCH 27.2 pg (27-33) 01/07/25 05:32 MCHC 29.5 g/dL (30-55) L 01/07/25 05:32 RDW 21.8 % (12.1-15.1) H 01/07/25 05:32 Plt Count 263 10^3/cmm (157-399) 01/07/25 05:32 MPV 14.0 fL (7.4-10.4) H 01/07/25 05:32 Neut % (Auto) 76.6 % 01/07/25 05:32 Lymph % (Auto) 10.6 % 01/07/25 05:32 [place] % (Auto) 7.9 % 01/07/25 05:32 Eos % (Auto) 3.6 % 01/07/25 05:32 Baso % (Auto) 0.9 % 01/07/25 05:32 Neut # (Auto) 8.92 10^3/uL (1.8-7.7) H 01/07/25 05:32 Lymph # (Auto) 1.2 10^3/uL (0.8-4.8) 01/07/25 05:32 [place] # (Auto) 0.9 10^3/uL (0.2-0.9) 01/07/25 05:32 Eos # (Auto) 0.4 10^3/uL (0.0-0.8) 01/07/25 05:32 Baso # (Auto) 0.1 10^3/uL (0.0-0.1) 01/07/25 05:32 Nucleated RBC % (auto) 0 % 01/07/25 05:32 Nucleated RBCs # 0.0 /100WBC 01/07/25 05:32 Sodium 151 mmol/L (136-145) H 01/07/25 05:58 Potassium 4.5 mmol/L (3.5-5.1) 01/07/25 05:58 Chloride 112 mmol/L (98-107) H 01/07/25 05:58 Carbon Dioxide 23 mmol/L (22-29) 01/07/25 05:58 Anion Gap 20.5 (5-19) H 01/07/25 05:58 BUN 43 mg/dL (8-23) H 01/07/25 05:58 Creatinine 2.3 mg/dL (0.7-1.2) H 01/07/25 05:58 GFR Calculation 28.5 mL/min (90-130) L 01/07/25 05:58 Glucose 102 mg/dL (65-115) 01/07/25 05:58 Calculated Osmolality 323 mOsm/kg (285-295) H 01/07/25 05:58 Calcium 8.7 mg/dL (8.5-10.5) 01/07/25 05:58 Total Bilirubin 0.4 mg/dL (0.15-1.2) 01/07/25 05:58 AST 45 U/L (0-40) H 01/07/25 05:58 ALT 72 U/L (0-41) H 01/07/25 05:58 Alkaline Phosphatase 95 U/L (40-130) 01/07/25 05:58 Troponin T Baseline 1164 ng/L (0-15) H* 01/07/25 07:42 Total Protein 7.5 g/dL (6.6-8.7) 01/07/25 05:58 Albumin 3.1 g/dL (3.5-5.2) L 01/07/25 05:58 Globulin 4.4 g/dL (1.3-4.6) 01/07/25 05:58 Coronavirus (PCR) Negative (Negative) 01/07/25 05:10 Influenza A (PCR) Negative (Negative) 01/07/25 05:10 Influenza Type B (PCR) Negative (Negative) 01/07/25 05:10 RSV (PCR) Negative (Negative) 01/07/25 05:10 All radiology interpretation(s) finalized by discharge Discharge Plan Discharge Patient Disposition: Admitted As Inpatient Admit Provider: Halytskyy,Omkar Clinical Impression: Pneumonia, Hypernatremia, Elevated troponin I level Condition: Stable Sign Out Sign Out Data: Patient Sign Out occurred on 01/07/25 at 06:36. Patient's care was discussed, and care was transferred from Marielle Casiano MD to Josh Vazquez DO. Coding Level of Care Code ED Cable Placer for juana El
--- NOTE | 2025-01-07 05:21 | PC.NURSE ---
pt is non verbal and unable to answer the SI questions
[2025-01-07 05:39] LABS: Basophils # 0.1 10^3/uL (0.0-0.1); Basophils % 0.9 %; Eosinophils # 0.4 10^3/uL (0.0-0.8); Eosinophils % 3.6 %; Hematocrit 33.9 % (37-53); Lymphocytes # 1.2 10^3/uL (0.8-4.8); Lymphocytes % 10.6 %; Mean Corpuscular HGB Conc 29.5 g/dL (30-55); Mean Corpuscular Hemoglobin 27.2 pg (27-33); Mean Corpuscular Volume 92.4 fl (82-101); Monocytes # 0.9 10^3/uL (0.2-0.9); Monocytes % 7.9 %; Neutrophils # 8.92 10^3/uL (1.8-7.7); Neutrophils % 76.6 %; Nucleated Red Blood Cells % 0 %; Platelet Count 263 10^3/cmm (157-399); Red Blood Count 3.67 10^6/uL (3.85-5.65); Red Cell Distribution Width 21.8 % (12.1-15.1); White Blood Count 11.66 10^3/uL (3.29-11.43)
[2025-01-07 06:04] LABS: Influenza A NEGATIVE (Negative); Influenza B NEGATIVE (Negative); Respiratory Syncytial Virus Ce NEGATIVE (Negative); SARS-CoV-2 PCR NEGATIVE (Negative)
[2025-01-07 06:19] LABS: Alanine Aminotransferase 72 U/L (0-41); Albumin Level 3.1 g/dL (3.5-5.2); Alkaline Phosphatase 95 U/L (40-130); Anion Gap 20.5 (5-19); Aspartate Amino Transferase 45 U/L (0-40); Blood Urea Nitrogen 43 mg/dL (8-23); Calcium 8.7 mg/dL (8.5-10.5); Carbon Dioxide 23 mmol/L (22-29); Chloride 112 mmol/L (98-107); Globulin 4.4 g/dL (1.3-4.6); Glomerular Filtration Rate 28.5 mL/min (90-130); Glucose 102 mg/dL (65-115); Osmolality Calculated 323 mOsm/kg (285-295); Potassium 4.5 mmol/L (3.5-5.1); Sodium 151 mmol/L (136-145); Total Bilirubin 0.4 mg/dL (0.15-1.2); Total Protein 7.5 g/dL (6.6-8.7)
--- NOTE | 2025-01-07 06:38 | ECG_ITS ---
[facility] Test Date: 2025-01-07 Pat Name: Jorge Luis Lucas Department: Room: Gender: Male Knitter Hand: : 1955 Requested By: Josh Powell Order Number: [id number] Ash MD: Rich Madison M.D. Measurements Intervals [place] Rate: 91 P: 65 MA: 156 QRS: 72 QRSD: 89 T: 102 QT: 384 QTc: 475 Interpretive Statements SINUS RHYTHM POSSIBLE LEFT ATRIAL ENLARGEMENT [-0.1mV P-WAVE IN V1/V2] LOW QRS VOLTAGE [QRS DEFLECTION < 0.5/1.0 mV IN LIMB/CHEST LEADS] ANTEROSEPTAL MYOCARDIAL INFARCTION , PROBABLY RECENT [40+ ms Q WAVE IN V1-V4] ACUTE CT possible old lateral wall CT Compared to ECG 12/30/2024 19:14:09 Atrial flutter no longer present Incomplete right bundle-branch block no longer present Myocardial infarct finding still present Electronically Signed On 01-08-2025 17:42:00 DRY CLEANER APPRENTICE by Rich Madison M.D. [email or web address]
--- NOTE | 2025-01-07 07:22 | PC.PHAR ---
Addendum entered by Hien Ordonez 01/21/25 08:53: Pt is still with [facility] [phone] agent is Aileen Kirby [phone]. Original Note: [facility]
[2025-01-07 08:17] LABS: Troponin(5th) Baseline 1164 ng/L (0-15)
--- NOTE | 2025-01-07 09:20 | ECG_ITS ---
[facility] Date: 2025-[facility]-07 Pat Name: Jorge Luis Lucas Department: Room: EDIP Gender: Male Lost And Found Clerk: : 1955 Requested By: Josh Powell Order Number: [id number] Ash MD: Rich Madison M.D. Measurements Intervals [place] Rate: 92 P: 71 MS: 146 QRS: 88 QRSD: 93 T: 107 QT: 384 QTc: 477 Interpretive Statements SINUS RHYTHM POSSIBLE LEFT ATRIAL ENLARGEMENT [-0.1mV P-WAVE IN V1/V2] LOW QRS VOLTAGE [QRS DEFLECTION < 0.5/1.0 mV IN LIMB/CHEST LEADS] ANTEROSEPTAL MYOCARDIAL INFARCTION , PROBABLY RECENT [40+ ms Q WAVE IN V1-V4] ACUTE PA Compared to ECG 01/07/2025 07:03:17 No significant changes Electronically Signed On 01-08-2025 18:06:42 CUSTOM STOCK MAKER by Rich Madison M.D. [email or web address]
[2025-01-07 10:09] LABS: Troponin 5 2HR 1183 ng/L (0-15); Troponin 5 2HR Delta 19 ABS# (0-10)
--- NOTE | 2025-01-07 10:12 | ECG_ITS ---
[facility] Date: 2025-01-07 Pat Name: Jorge Luis Lucas Department: Room: EDIP Gender: Male Oncology Patient Navigator: : 1955 Requested By: Josh Powell Order Number: [id number] Ash MD: Rich Madison M.D. Measurements Intervals [place] Rate: 89 P: 69 [place]: 151 QRS: 90 QRSD: 89 T: 106 QT: 376 QTc: 458 Interpretive Statements SINUS RHYTHM LOW QRS VOLTAGE [QRS DEFLECTION < 0.5/1.0 mV IN LIMB/CHEST LEADS] ANTEROSEPTAL MYOCARDIAL INFARCTION , PROBABLY RECENT [40+ ms Q WAVE IN V1-V4] ACUTE TX Possible old lateral wall TX Compared to ECG 01/07/2025 09:27:57 No significant changes Electronically Signed On 01-08-2025 17:42:27 CHARGING MACHINE OPERATOR by Rich Madison M.D. [email or web address]
--- NOTE | 2025-01-07 10:35 | PM.HP ---
Providers/Chief Complaint Admitting Physician: Omkar Vaughan Primary Care Provider: MANDI Stewart Chief Complaint: LOW O2 History of Present Illness 69 years male with severe developmental delay, total assist, noncommunicative, living in a halfway, with histor epilepsy, y of PE following coronavirus infection with, previously on anticoagulation, GI bleeding, epilepsy, intermittent agitation, other medical problems, recently hospitalized after presentation after cardiogenic shock after ST elevation MD, underwent coronary geography with PCI to LAD with 3 NICOLÁS, balloon angioplasty of diagonal, PCI to RCA. Echocardiogram showed EF 20%. Regional wall motion normality with grade 1 diastolic dysfunction. During hospitalization he also developed multiorgan dysfunction with cardiogenic shock which showed gradual improvement and resolution. With concerns for dysphagia, hiatal hernia, risk of aspiration, consideration was given to a feeding tube, however, due to multiple concerns this was not pursued. He was advanced to dysphagia diet with aspiration precautions and continued on oral diet. He continues with Lasix as needed and fluid restriction at discharge. Continued with aspirin, Plavix, statin, beta-dawson, amiodarone. She was brought back to ER for evaluation due to hypoxia over at halfway. On evaluation in ER pulse oximetry was found to be okay, however, with productive cough, chest x-ray obtained, and with finding of mild cardiac decompensation, developing infiltrate in the left midlung laterally. He is found also to have hypernatremia 151. Troponin on assessment is found elevated at 1164. Renal function appears close to recent baseline with a CKD, creatinine 2.3. Coronavirus: Pfizer, RSV PCR negative. Review of Systems General: Reports: ROS unobtainable due to mental status Medications/Allergies Home Medications ?Medication ?Instructions ?Recorded ?Confirmed ?Last Taken ?Type dextromethorphan-guaifenesin 10 5 ml PO Q4H PRN Cough 05/17/21 01/07/25 12/28/21 History mg-100 mg/5 mL oral syrup (Roby ROWLEY) multivitamin 1 tab PO DAILY 05/02/23 01/07/25 01/06/25 History acetaminophen 325 mg tablet 325 mg PO QID PRN pain 05/08/23 01/07/25 Unknown History citalopram 10 mg tablet 10 mg PO DAILY 05/08/23 01/07/25 01/06/25 History lactulose 10 gram/15 mL oral 30 ml PO DAILY 05/08/23 01/07/25 01/06/25 History solution polyethylene glycol 3350 17 17 g PO DAILY 05/08/23 01/07/25 01/06/25 History gram/dose oral powder fluticasone propionate 50 1 spray intranasal DAILY 06/20/23 01/07/25 01/06/25 History mcg/actuation nasal spray,suspension magnesium hydroxide 400 mg/5 mL 30 ml PO DAILY PRN Constipation 06/20/23 01/07/25 Unknown History oral suspension (Milk of Magnesia) sennosides 8.6 mg tablet (Elizabet-melanie) 8.6 mg PO DAILY 06/20/23 01/07/25 01/06/25 History levetiracetam 1,000 mg tablet 1,000 mg PO BID 08/22/23 01/07/25 01/06/25 History pantoprazole 40 mg tablet,delayed 40 mg PO BID 6 weeks #84 tabs 08/22/23 01/07/25 01/06/25 Rx release (Protonix) cetirizine 10 mg tablet 10 mg PO DAILY 12/15/24 01/07/25 01/06/25 History perampanel 6 mg tablet (Fycompa) 6 mg PO QAM 12/15/24 01/07/25 01/06/25 History amiodarone 200 mg tablet (Pacerone) 200 mg PO DAILY #30 tabs 01/03/25 01/07/25 01/06/25 Rx aspirin 81 mg tablet,delayed 81 mg PO DAILY #30 tabs 01/03/25 01/07/25 01/06/25 Rx release atorvastatin 40 mg tablet 40 mg PO BEDTIME #30 tabs 01/03/25 01/07/25 01/06/25 Rx clopidogrel 75 mg tablet 75 mg PO DAILY #30 tabs 01/03/25 01/07/25 01/06/25 Rx furosemide 40 mg tablet (Lasix) 40 mg PO DAILY PRN Lower limb 01/03/25 01/07/25 Unknown Rx swelling, gain of 5 pounds #20 tabs metoprolol tartrate 25 mg tablet 12.5 mg (1/2 x 25 mg) PO 01/03/25 01/07/25 01/06/25 Rx BID@0900,2100 #30 tabs Allergies Allergy/AdvReac Type Severity Reaction Status Date / Time TIDE LAUNDRY SOAP Allergy ALGY-Rash Uncoded 01/07/25 05:21 PFSH Acute PFSH: Medical History Cardiogenic shock Chronic anticoagulation Discontinued due to concerns for GI bleed History of pulmonary embolism Bradycardia Acute anemia ARDS survivor Protein calorie malnutrition ARDS (adult respiratory distress syndrome) Sepsis Hypernatremia Respiratory failure with hypoxia Developmental delay, profound Transaminitis Elevated lactic acid level Thrombocytopenia Pulmonary embolism Pneumonia due to COVID-19 virus Surgical History S/P percutaneous endoscopic gastrostomy (PEG) tube placement (05/27/21) removed 05/04/2022 Social History Smoking and tobacco/nicotine status: never used tobacco/nicotine Vitals/I&O/Wt Last Vital Signs Temp 97.1 F L 01/07/25 05:14 Pulse 88 01/07/25 08:46 Resp 16 01/07/25 08:46 BP 119/72 01/07/25 08:46 Pulse Ox 96 01/07/25 08:46 O2 Del Method Room Air 01/07/25 08:46 01/06/25 01/07/25 01/07/25 22:59 06:59 14:59 Intake Total 0 / 0 Balance 0 / 0 Physical Exam Const: GENERAL APPEARANCE: not cooperative ORIENTATION/CONSCIOUSNESS: not awake HENMT: COMMON NORMALS: oropharynx normal Neck/C-Spine: COMMON NORMALS: no JVD Resp: AUSCULTATION: rhonchi Cardio: COMMON NORMALS: no JVD, regular rhythm, S1 normal heart sound present, S2 normal heart sound present and No murmurs present (Cardio) RHYTHM: regular rhythm HEART SOUNDS: S1 normal heart sound present and S2 normal heart sound present GI: COMMON NORMALS: Normal to inspection, nondistended, normoactive bowel sounds present, Soft to palpation and non-tender PALPATION: Yes Soft to palpation Extremity: COMMON NORMALS: no joint enlargement and no pedal edema Neuro: SENSORIUM/ORIENTATION: No alert Skin: COMMON NORMALS: no rashes or lesions noted GENERAL SKIN EXAM: no rashes or lesions noted Data 01/07/25 05:32 01/07/25 05:58 A&P Assessment and plan (1) Pneumonia: Faint infiltrate noted in left lower lung. Saturation noted low at the halfway, although overall saturating okay in the ER, up to 95% on room air. He is having productive cough, and is noted to have rhonchi on exam. At risk of aspiration and aspiration pneumonia. Will start him on Zosyn. Monitor for risk of cytopenia, Rosas-Dale syndrome, C. difficile. Unlikely that he will be able to provide a sputum culture. Will obtain urine bacterial antigens, urine Legionella antigen. With recent hospitalization, obtain MRSA PCR. For now we will provide coverage with linezolid for possible hospital-acquired pneumonia. Monitor for risk of cytopenia. Discussed he is at risk of recurrent aspiration, recurrent aspiration pneumonia. (2) Troponin level elevated: Cardiogenic shock after recent STEMI, with PCI to LAD, 3 times NICOLÁS, as well as balloon angioplasty of diagonal, PCI to RCA. Last hospitalization troponin up as high as 4600 at baseline, although 6-hour troponin looks like was over 10,000. Currently troponin still elevated at 1160, renal function appears to be similar or slightly better to his baseline. Does appear may be gradual decrease in troponin since last time with diminished renal function. However, at the same time unable to obtain his symptoms from him. Difficult to state whether troponin is still gradually declining after his STEMI previously, versus whether there is a secondary rise again. Will complete troponin EKG series. Monitor on telemetry with risk of arrhythmia. Obtain follow-up limited TTE. Appreciate cardiology consultation. Continue aspirin, Plavix, beta-dawson, statin. (3) Hypernatremia: Hyponatremia 151 with dehydration. Will give gentle hydration with D5. Follow-up sodium level. Monitor for risk of hyponatremia, fluid overload. Plan Acute systolic congestive heart failure exacerbation: Mild exacerbation of CHF, with hypoxia part of the halfway, mild cardiac compensation noted on chest x-ray. Only minimal edema peripherally. Will transition Lasix to IV 20 mg daily for now. Monitor intake and output. Monitor for risk of electrolyte deficiency. Reassess chemistry. Dysphagia: Maintain aspiration precautions. He is on pur?ed diet with extremely thickened liquids. Discussed condition, assessment and plans with his guardian. Per history obtained from the guardian seems that atorvastatin dose may have been missed, but as per discussion should not contribute to some of the dehydration and hypernatremia he is having. PDMP PDMP Reviewed: Not Reviewed Attestations Medical Necessity Statement*: Admission of over 2 midnights is anticipated for assessment and management of pneumonia, dehydration, hypernatremia, troponin elevation after recent STEMI in gentleman with underlying CKD after recent multiorgan failure after cardiogenic shock, cardiomyopathy with low ejection fraction. and High MDM includes amount and/or complexity of data reviewed/ordered [ resulted lab(s)/test(s), ordered lab(s)/test(s), independent historian and other healthcare professional discussion] and described risk of complication, morbidity or mortality of management as documented Diagnoses Pneumonia J18.9 Troponin level elevated R79.89 Hypernatremia E87.0
--- NOTE | 2025-01-07 10:41 | PC.NURSE ---
Addendum entered by Adilene Ricardo RN 01/07/25 10:46: PER DR. HILLMAN CONTACTING DR. WATKINS NOT NEEDED AT THIS TIME. Original Note: DR. HILLMAN MADE AWARE OF POSITIVE DELTA ON PT BY THIS NURSE.
[2025-01-07] MEDS: piperacillin-tazobactam 3.375 GM in sodium chloride 0.9% (plus) 50 ML IV ×2 (11:53→19:57)
--- NOTE | 2025-01-07 12:39 | USCV_ITS ---
Jorge Luis Lucas Age: 69 Gender: M : 1955 Exam Date: 01/07/2025 13:48 Ordering Phys: Omkar Vaughan MD Technologist: Exam Location: [facility] [place] Indication: stemi BP: / HR: Rhythm: Sinus Technical Quality: Adequate MEASUREMENTS (Male / Female) Normal Values 2D ECHO LV Ejection Fraction MOD 4C 26.1 % LV Ejection Fraction MOD 2C 52.2 % LV Ejection Fraction 2C AL 53.8 % RA Systolic Volume 4C AL 32.1 ml RA Systolic Volume 4C MOD 33.2 ml FINDINGS Left Ventricle Severe hypokinesis of the mid and apical septum, anteroseptum, mid and apical inferior, apical lateral and LV apex. LV ejection fraction around 39%. No intracardiac masses. Right Ventricle Normal size and ejection fraction Right Atrium Appears to be of normal size Left Atrium The left atrium is normal in size. Mitral Valve No gross morphology abnormalities Aortic Valve Appears to be thickened but not stenotic Tricuspid Valve No gross morphology abnormalities Pulmonic Valve Not visualized well Pericardium No pericardial effusion. Aorta Normal ascending aorta dimension. IVC The inferior vena cava appears normal. CONCLUSIONS Severe hypokinesis of the mid and apical septum, anteroseptum, mid and apical inferior, apical lateral and LV apex. LV ejection fraction around 39%. No intracardiac masses. Appears to be thickened but not stenotic. Normal cardiac chamber sizes There is no pericardial effusion. There are no intracardiac masses. Compared to the study from 01/03/2025, there may not be significant change Dr Rich Madison MD [facility] (Electronically Signed) Final Date: 09 January 2025 05:10 S
--- NOTE | 2025-01-07 12:44 | PC.NURSE ---
Arrived from ER, transferred to bed with lift sheet
--- NOTE | 2025-01-07 13:20 | ECG_ITS ---
[employer] Test Date: 2025-01-07 Pat Name: Jorge Luis Lucas Department: Room: [facility] Gender: Male Gradall Operator: : 1955 Requested By: Josh Powell Order Number: [id number] Ash MD: Rich Madison M.D. Measurements Intervals [place] Rate: 91 P: 87 AL: 139 QRS: 111 QRSD: 93 T: 140 QT: 395 QTc: 486 Interpretive Statements SINUS RHYTHM POSSIBLE LEFT ATRIAL ENLARGEMENT [-0.1mV P-WAVE IN V1/V2] RIGHT AXIS DEVIATION [QRS AXIS > 100] LOW QRS VOLTAGE [QRS DEFLECTION < 0.5/1.0 mV IN LIMB/CHEST LEADS] ANTEROSEPTAL MYOCARDIAL INFARCTION , PROBABLY RECENT [40+ ms Q WAVE IN V1-V4] ACUTE HI Compared to ECG 01/07/2025 10:12:24 Right-axis deviation now present Myocardial infarct finding still present Electronically Signed On 01-08-2025 18:06:51 ENVIRONMENTAL RESOURCE SPECIALIST by Rich Madison M.D. [email or web address]
[2025-01-07] MEDS: sennosides 8.6 mg Tablet PO (13:22)
[2025-01-07] MEDS: dextrose 5% 1,000 ML 30 ML IV (13:22)
[2025-01-07] MEDS: aspirin 81 mg EC Tablet PO (13:22)
[2025-01-07] MEDS: amiodarone 200 mg Tablet PO (13:22)
[2025-01-07] MEDS: citalopram 20 mg Tablet 10 MG PO (13:22)
[2025-01-07] MEDS: clopidogrel 75 mg Tablet PO (13:22)
[2025-01-07] MEDS: FUROsemide 10 mg/mL SDV 2mL 20 MG IVP (13:23)
[2025-01-07] MEDS: linezolid premix 600 MG/300 ML PREMIX 300 MG IV (13:23)
[2025-01-07] MEDS: lactulose oral liq 20 gm/30 mL UDC PO (13:23)
[2025-01-07] MEDS: fluticasone nasal spray 16gm Btl 1 SPRAY INTRANASAL (13:23)
--- NOTE | 2025-01-07 14:03 | PC.NURSE ---
Dr. Madison at bedside gave order for heparin drip
[2025-01-07 14:42] LABS: Platelet Count 255 10^3/cmm (157-399)
[2025-01-07 14:58] LABS: Sodium 149 mmol/L (136-145)
[2025-01-07 15:07] LABS: Troponin 5 6HR 1223 ng/L (0-15); Troponin 5 6HR Delta 59 ng/L (0-12)
[2025-01-07] MEDS: heparin drip 25,000 UNIT/500 ML PREMIX 22 UNIT IV (15:24)
[2025-01-07] MEDS: levETIRAcetam 500 mg Tablet 1000 MG PO (17:16)
[2025-01-07] MEDS: pantoprazole DR 40 mg Tablet PO (17:16)
[2025-01-07 17:31] LABS: Partial Thromboplastin Time 32.3 SECONDS (23.9-36.7)
[2025-01-07 17:55] LABS: MRSA PCR OZH (swab) MRSA Detected (Negative)
[2025-01-07] MEDS: atorvastatin 40 mg Tablet PO (21:40)
[2025-01-07] MEDS: metoprolol tartrate 25 mg Tablet 12.5 MG PO (21:40)
[2025-01-07 22:36] LABS: Partial Thromboplastin Time 36.1 SECONDS (23.9-36.7)
[2025-01-07] MEDS: heparin 5,000 unit/mL INJ 1 mL IVP (23:17)
[2025-01-08] VITALS (18 sets, daily range): BP systolic 105–155; BP diastolic 65–94; PULSE 75–87; RESP 15–38; TEMP 36.3–36.7; O2SAT 89–98
--- NOTE | 2025-01-08 00:33 | PM.CONSULT ---
Providers/Reason For Consult Consulting Physician/Specialty*: BRINA Madison MD/cardiology Reason for Consult*: Patient with history of atherosclerotic heart diseas, recent ID, status post PCI, presenting with generalized weakness and elevated troponin T Requesting Physician: Dr. Vaughan Attending Physician: Omkar Vaughan Primary Care Provider: MANDI Stewart History of Present Illness History of Present Illness Jorge Luis Lucas is a 69 year old male who is admitted to hospital through the emergency room where he presented with a possible hypoxia. He was found to have features of pneumonia. He also was found to have a markedly elevated troponin T with abnormal EKG. Cardiology consult is requested for further cardiac evaluation recommendations. This patient is nonverbal. He has development delays and seizure disorder. He is in a intermediate and under guardianship. He is not able to give any history. He was recently discharged in the hospital where he was admitted with features of an acute ST elevation myocardial infarction complicated with severe LV dysfunction. Cardiac arrest revealed total occlusion of the left descending artery and a high-grade lesion in the right coronary artery. He had 3 overlapping drug-eluting stent placement in the LAD from proximal to mid region. A jailed diagonal lesion was angioplastied. The mid right coronary artery was found to have around 80% lesion which was intervened and had a drug-eluting stent. The LV ejection fraction was 20% by echocardiogram and around 35% by LV angiogram. He was initially sent to the emergency room because of hypoxia based on pulse oximetry readings. But repeat pulse oximetry in the emergency room revealed oxygenation as appropriate. But because of the pneumonia and the elevated troponin T, it was decided to admit the patient to the hospital. There is no documentation of chest pain. He has nonpurposeful movements of the upper extremities and head and neck region. Does not appear to be any in any distress. Has a history of pulmonary embolism and is on long-term oral anticoagulation. History of dyslipidemia, cardiomyopathy, chronic anemia, GI bleed, dysphagia, aspiration pneumonia, pulmonary embolism, thrombocytopenia. He was found to have a troponin T around 1100. The 2-hour delta was around 19. His EKG showed persistent ST elevation in the anterior leads. Review of Systems Narrative: CONSTITUTIONAL: No fever or chills. EYES: No recent changes documented. ENT: No hoarseness of voice, auditory disturbances or sore throat. CARDIOVASCULAR: As mentioned above. RESPIRATORY: Occasional cough. GASTROINTESTINAL: History of GI bleed and dysphagia GENITOURINARY: No dysuria or hematuria. INTEGUMENTARY: No skin rashes or history of skin cancer. NEURO: No transient ischemic attacks or amaurosis. PSYCHIATRIC: Development disorder/agitation as mentioned above HEMATOLOGIC: Chronic anemia ENDOCRINE: No history of polyuria or polydipsia. MUSCULOSKELETAL: Nonpurposeful movements of the upper extremities and head and neck region ALLERGY/IMMUNOLOGY: As mentioned above. Medications/Allergies Home Medications ?Medication ?Instructions ?Recorded ?Confirmed ?Last Taken ?Type dextromethorphan-guaifenesin 10 5 ml PO Q4H PRN Cough 05/17/21 01/07/25 12/28/21 History mg-100 mg/5 mL oral syrup (Tussin DM) multivitamin 1 tab PO DAILY 05/02/23 01/07/25 01/06/25 History acetaminophen 325 mg tablet 325 mg PO QID PRN pain 05/08/23 01/07/25 Unknown History citalopram 10 mg tablet 10 mg PO DAILY 05/08/23 01/07/25 01/06/25 History lactulose 10 gram/15 mL oral 30 ml PO DAILY 05/08/23 01/07/25 01/06/25 History solution polyethylene glycol 3350 17 17 g PO DAILY 05/08/23 01/07/25 01/06/25 History gram/dose oral powder fluticasone propionate 50 1 spray intranasal DAILY 06/20/23 01/07/25 01/06/25 History mcg/actuation nasal spray,suspension magnesium hydroxide 400 mg/5 mL 30 ml PO DAILY PRN Constipation 06/20/23 01/07/25 Unknown History oral suspension (Milk of Magnesia) sennosides 8.6 mg tablet (Elizabet-melanie) 8.6 mg PO DAILY 06/20/23 01/07/25 01/06/25 History levetiracetam 1,000 mg tablet 1,000 mg PO BID 08/22/23 01/07/25 01/06/25 History pantoprazole 40 mg tablet,delayed 40 mg PO BID 6 weeks #84 tabs 08/22/23 01/07/25 01/06/25 Rx release (Protonix) cetirizine 10 mg tablet 10 mg PO DAILY 0101/07/25 01/06/25 History perampanel 6 mg tablet (Fycompa) 6 mg PO QAM 12/15/24 01/07/25 01/06/25 History amiodarone 200 mg tablet (Pacerone) 200 mg PO DAILY #30 tabs 01/03/25 01/07/25 01/06/25 Rx aspirin 81 mg tablet,delayed 81 mg PO DAILY #30 tabs 01/03/25 01/07/25 01/06/25 Rx release atorvastatin 40 mg tablet 40 mg PO BEDTIME #30 tabs 01/03/25 01/07/25 01/06/25 Rx clopidogrel 75 mg tablet 75 mg PO DAILY #30 tabs 01/03/25 01/07/25 01/06/25 Rx furosemide 40 mg tablet (Lasix) 40 mg PO DAILY PRN Lower limb 01/03/25 01/07/25 Unknown Rx swelling, gain of 5 pounds #20 tabs metoprolol tartrate 25 mg tablet 12.5 mg (1/2 x 25 mg) PO 01/03/25 01/07/25 01/06/25 Rx BID@0900,2100 #30 tabs Allergies Allergy/AdvReac Type Severity Reaction Status Date / Time TIDE LAUNDRY SOAP Allergy ALGY-Rash Uncoded 01/07/25 05:21 Current Medications Generic Name Dose Route Start Last Admin Trade Name Freq PRN Reason Stop Dose Admin Amiodarone HCl 200 mg 01/07/25 13:00 01/07/25 13:22 Amiodarone 200 Mg Tablet PO 200 mg DAILY SHWETA Administration Aspirin 81 mg 01/07/25 13:00 01/07/25 13:22 Aspirin 81 Mg Ec Tablet PO 81 mg DAILY SHWETA Administration Atorvastatin Calcium 40 mg 01/07/25 21:00 01/07/25 21:40 Atorvastatin 40 Mg Tablet PO 40 mg BEDTIME SHWETA Administration Citalopram Hydrobromide 10 mg 01/07/25 13:00 01/07/25 13:22 Citalopram 20 Mg Tablet PO 10 mg DAILY SHWETA Administration Clopidogrel Bisulfate 75 mg 01/07/25 12:39 01/07/25 13:22 Clopidogrel 75 Mg Tablet PO 75 mg DAILY SHWETA Administration Fluticasone Propionate 1 spray 01/07/25 13:00 01/07/25 13:23 Fluticasone Nasal [place] 16gm Btl INTRANASAL 1 spray DAILY SHWETA Administration Furosemide 20 mg 01/07/25 13:00 01/07/25 13:23 Furosemide 10 Mg/Ml Sdv 2ml IVP 20 mg DAILY SHWETA Administration Heparin Sodium (Porcine) 0 unit 01/07/25 14:02 01/07/25 23:17 Heparin 5,000 Unit/Ml Inj 1 Ml IVP 3,200 unit PRN PRN Administration Heparin Weight Based Protocol -Subsequent Bolus Protocol Piperacillin Sod/Tazobactam 50 mls @ 12.5 mls/hr 01/07/25 11:30 01/07/25 19:57 Sod 3.375 gm/ Sodium Chloride IV 12.5 mls/hr Q8H SHWETA Administration Protocol Linezolid 600 mg in 300 mls @ 300 mls/hr 01/07/25 13:00 01/07/25 19:51 Zyvox Premix IV Infused Q12H SHWETA Infusion Protocol Dextrose 1,000 mls @ 30 mls/hr 01/07/25 12:39 01/07/25 13:22 D5w IV 30 mls/hr .Q24H SHWETA Administration Heparin Sodium/Sodium Chloride 25,000 unit in 500 mls @ 0 mls/hr 01/07/25 14:15 01/07/25 23:17 Heparin Drip IV 15.53 unit/kg/hr CONT SHWETA 25 mls/hr Titration Protocol Per Protocol Lactulose 20 gm 01/07/25 13:00 01/07/25 13:23 Lactulose Oral Liq 20 Gm/30 Ml Udc PO 20 gm DAILY SHWETA Administration Levetiracetam 1,000 mg 01/07/25 18:00 01/07/25 17:16 Levetiracetam 500 Mg Tablet PO 1,000 mg BID SHWETA Administration Metoprolol Tartrate 12.5 mg 01/07/25 21:00 01/07/25 21:40 Metoprolol Tartrate 25 Mg Tablet PO 12.5 mg BID@0900,2100 SHWETA Administration Pantoprazole Sodium 40 mg 01/07/25 18:00 01/07/25 17:[address] 40 Mg Tablet PO 40 mg BID SHWETA Administration Senna 8.6 mg 01/07/25 12:39 01/07/25 13:22 Sennosides 8.6 Mg Tablet PO 8.6 mg DAILY SHWETA Administration PFSH Acute PFSH: Medical History (Updated 01/08/25 @ 01:05 by Rich Madison MD) Cardiogenic shock Chronic anticoagulation Discontinued due to concerns for GI bleed History of pulmonary embolism Bradycardia Acute anemia ARDS survivor Protein calorie malnutrition ARDS (adult respiratory distress syndrome) Sepsis Hypernatremia Respiratory failure with hypoxia Developmental delay, profound Transaminitis Elevated lactic acid level Thrombocytopenia Pulmonary embolism Pneumonia due to COVID-19 virus Surgical History S/P percutaneous endoscopic gastrostomy (PEG) tube placement (05/27/21) removed 05/04/2022 Social History Smoking and tobacco/nicotine status: never used tobacco/nicotine Vitals/I&O/Wt Last Vital Signs Temp 97.1 F L 01/07/25 05:14 Pulse 90 01/07/25 17:18 Resp 14 01/07/25 10:39 BP 125/92 01/07/25 12:32 Pulse Ox 92 01/07/25 12:32 O2 Del Method Room Air 01/07/25 10:39 01/07/25 01/07/25 01/08/25 14:59 22:59 06:59 Intake Total 590 / 590 173.433 / 763.433 Balance 590 / 590 173.433 / 763.433 Weight last 48 hrs Weight 177 lb 7.554 oz Physical Exam Narrative: GENERAL: The patient is alert but nonverbal. Has spontaneous nonpurposeful movements of the upper extremities and head and neck region, orofacial dyskinesia HEENT: Minimal pallor, no icterus or lymphadenopathy.Oral cavity: There are no mucous membrane lesions. NECK: Trachea appears to be central. No masses noted. No JVD or thyromegaly appreciated. RESPIRATORY: Chest is symmetrical. No intercostals muscle retraction or any accessory muscle activation. There is no chest wall tenderness. Breath sounds are heard bilaterally. No rales or rhonchi heard. No evidence of any consolidation. BREASTS: Deferred. HEART: The heart sounds are normal. No S3 or S4. Short systolic murmur in the lateral border.. No pericardial rub ABDOMEN: No vessel pulsations or distention. No tenderness. No organomegaly appreciated. Bowel sounds are normally heard. : Deferred. RECTAL: Deferred. LYMPHATIC: No lymphadenopathy noted in the neck. EXTREMITIES: 1+ edema both lower extremities. No cyanosis. MUSCULOSKELETAL: No acute joint deformities or swelling SKIN: There are no significant rashes or ecchymosis NEUROPSYCHIATRIC: The patient is alert , nonverbal. Noted any distress. Urinary Catheter Management: Lamb Latex: Cath Placed During This Visit: yes Urinary Catheter Date of Insertion: 01/07/25 Urinary Catheter Time of Insertion: 23:00 Data 01/07/25 14:30 01/07/25 14:30 Other Labs: Laboratory Last Values WBC 11.66 10^3/uL (3.29-11.43) H 01/07/25 05:32 RBC 3.67 10^6/uL (3.85-5.65) L 01/07/25 05:32 Hgb 10.00 g/dL (11.27-16.99) L 01/07/25 05:32 Hct 33.9 % (37-53) L 01/07/25 05:32 MCV 92.4 fl (82-101) 01/07/25 05:32 MCH 27.2 pg (27-33) 01/07/25 05:32 MCHC 29.5 g/dL (30-55) L 01/07/25 05:32 RDW 21.8 % (12.1-15.1) H 01/07/25 05:32 Plt Count 255 10^3/cmm (157-399) 01/07/25 14:30 MPV 14.0 fL (7.4-10.4) H 01/07/25 05:32 Neut % (Auto) 76.6 % 01/07/25 05:32 Lymph % (Auto) 10.6 % 01/07/25 05:32 [place] % (Auto) 7.9 % 01/07/25 05:32 Eos % (Auto) 3.6 % 01/07/25 05:32 Baso % (Auto) 0.9 % 01/07/25 05:32 Neut # (Auto) 8.92 10^3/uL (1.8-7.7) H 01/07/25 05:32 Lymph # (Auto) 1.2 10^3/uL (0.8-4.8) 01/07/25 05:32 [place] # (Auto) 0.9 10^3/uL (0.2-0.9) 01/07/25 05:32 Eos # (Auto) 0.4 10^3/uL (0.0-0.8) 01/07/25 05:32 Baso # (Auto) 0.1 10^3/uL (0.0-0.1) 01/07/25 05:32 Nucleated RBC % (auto) 0 % 01/07/25 05:32 Nucleated RBCs # 0.0 /100WBC 01/07/25 05:32 APTT 36.1 SECONDS (23.9-36.7) 01/07/25 22:05 Sodium 149 mmol/L (136-145) H 01/07/25 14:30 Potassium 4.5 mmol/L (3.5-5.1) 01/07/25 05:58 Chloride 112 mmol/L (98-107) H 01/07/25 05:58 Carbon Dioxide 23 mmol/L (22-29) 01/07/25 05:58 Anion Gap 20.5 (5-19) H 01/07/25 05:58 BUN 43 mg/dL (8-23) H 01/07/25 05:58 Creatinine 2.3 mg/dL (0.7-1.2) H 01/07/25 05:58 GFR Calculation 28.5 mL/min (90-130) L 01/07/25 05:58 Glucose 102 mg/dL (65-115) 01/07/25 05:58 Calculated Osmolality 323 mOsm/kg (285-295) H 01/07/25 05:58 Calcium 8.7 mg/dL (8.5-10.5) 01/07/25 05:58 Total Bilirubin 0.4 mg/dL (0.15-1.2) 01/07/25 05:58 AST 45 U/L (0-40) H 01/07/25 05:58 ALT 72 U/L (0-41) H 01/07/25 05:58 Alkaline Phosphatase 95 U/L (40-130) 01/07/25 05:58 Troponin T Baseline 1164 ng/L (0-15) H* 01/07/25 07:42 Troponin T 120 Minute 1183 ng/L (0-15) H 01/07/25 09:42 Delta Troponin T 19 ABS# (0-10) H* 01/07/25 09:42 Troponin T Hi Sens 6Hr 1223 ng/L (0-15) H 01/07/25 14:30 Troponin T Hi Sens 6Hr Delta 59 ng/L (0-12) H* 01/07/25 14:30 Total Protein 7.5 g/dL (6.6-8.7) 01/07/25 05:58 Albumin 3.1 g/dL (3.5-5.2) L 01/07/25 05:58 Globulin 4.4 g/dL (1.3-4.6) 01/07/25 05:58 Nasal MRSA (PCR) Mrsa detected (Negative) A 01/07/25 16:17 Coronavirus (PCR) Negative (Negative) 01/07/25 05:10 Influenza A (PCR) Negative (Negative) 01/07/25 05:10 Influenza Type B (PCR) Negative (Negative) 01/07/25 05:10 RSV (PCR) Negative (Negative) 01/07/25 05:10 Micro: Microbiology 01/07/25 23:45 Legionella Urinary Antigen - Final Urine Catheterized EKG 1: My Interpretation: Normal sinus rhythm. Possible left atrial enlargement. Poor R wave progression. QS pattern in lead V2 V3 with ST elevation and T inversion. Q waves in the high lateral leads. Diffuse nonspecific ST changes. Right axis deviation. A&P Assessment and plan (1) Elevated troponin I level: Patient's elevated troponin T, could be from the recent ID. He is troponin T was greater than 10,000 on the th of last month. The positive delta, could be related to type II ID. The LV ejection fraction appears to have improved compared to the previous echocardiogram. At this point, patient may not require any specific intervention. In view of the history of atrial fibrillation and persistent ST elevation, need to discuss about chronic oral anticoagulation (2) Abnormal EKG: The persistent ST elevation, may suggest LV aneurysm. This looks like any acute event. (3) Recent ST elevation myocardial infarction (STEMI): As mentioned above (4) Ischemic cardiomyopathy: Based on the echo, there is improvement LV ejection fraction.. Needs to discuss about LifeVest (5) Iron deficiency anemia: May continue on the current management. Qualifiers: Iron deficiency anemia type: other iron deficiency Qualified Code(s): D50.8 - Other iron deficiency anemias Plan Other problems are Possible pneumonia Chronic anemia Thrombocytopenia, resolved The patient may be kept on subcu Lovenox and other current medications for the time being Need to discuss about long-term oral anticoagulation Also will discuss about the LifeVest in view of the low LV systolic function Based on the clinical progress, further recommendations will be made Thank you for the opportunity to eval this patient and make these recommendations PDMP PDMP Reviewed: Not Reviewed Coding Level of Care Code 71777 Diagnoses Elevated troponin I level R79.89 Abnormal EKG R94.[address] elevation myocardial infarction (STEMI) Ischemic cardiomyopathy I25.5 Other iron deficiency anemia D50.8 Iron deficiency anemia type: other iron deficiency
[2025-01-08] MEDS: linezolid premix 600 MG/300 ML PREMIX 300 MG IV ×2 (01:05→13:36)
[2025-01-08] MEDS: piperacillin-tazobactam 3.375 GM in sodium chloride 0.9% (plus) 50 ML IV ×3 (04:23→21:01)
[2025-01-08 05:34] LABS: Partial Thromboplastin Time 122.4 SECONDS (23.9-36.7)
--- OUTSIDE RECORDS SUMMARY | 2025-01-08 08:18 | XMS_ITS | Data Portability ---
Author Organization DANIELE Yoandy Thompson [facility] Address [address] [address] Assessment Encounter Date Assessment Date Assessment LastModified by Organization Details LastModified Time 11/07/2023 11/07/2023 Physical completed today. Medication list updated. Patient needs wheelchair, casi lift, hospital bed with rails, ramps, shower chair, slings, depends, wipes for regular care. Not available 11/07/2023 14:24:23 10/28/2024 10/28/2024 Patient here for a check-up today. Overall he has been doing good per caregivers. He had cataract surgery this year. PRN scripts refilled. Adaptive Equipment: Patient needs wheelchair, casi lift, hospital bed with rails, ramps, shower chair, slings, depends, wipes for regular care, and manguards. Not available 10/28/2024 11:36:46 Plan of Treatment Reminders Order Date Submit Date Provider Last Modified By Organization Details Last Modified Time Details Appointments OFFICE VISIT 2024 11:20A MANDI BOSCH Not available Not available Not available Lab CMP, serum or plasma 2022 023 [facility] ([facility]), [address] [place], [address], 05/19/2023 16:44:02 CBC 2022 023 [facility] ([facility]), [address] [place], [address], 05/19/2023 14:53:07 CMP, serum or plasma 2023 024 [facility], [address], [address], [place], [address], 10/28/2024 13:58:38 lipid panel, blood 2023 024 [facility], [address], [address], [place], [address], 10/28/2024 13:58:40 CBC 2023 024 [facility], [address], [address], [place], [address], 10/28/2024 12:57:18 thyrotrop in, QN, serum or plasma 2023 024 [facility], [address], [address], [place], [address], 10/28/2024 14:49:28 Referral general surgeon referral 2022 023 Tk Marino DO, [address], [place], [address], 06/23/2023 11:26:43 Procedures None recorded. Surgeries None recorded. Imaging None recorded. Medication Orders meloxicam 7.[address] tablet [address] [facility], [address], [place], [address], 01/03/2024 16:47:38 cetirizin e 10 mg tablet [address] [facility], [address], [place], [address], 07/31/2024 17:47:13 lactulose 10 gram/15 mL oral solution [address] [facility], [address], [place], [address], 12/10/2024 11:48:09 famotidin e 20 mg tablet [address] [facility], [address], [place], [address], 10/30/2024 16:51:23 acetamino phen [address] [facility], [address], [place], [address], 10/30/2024 16:51:27 Milk of Magnesia 400 mg/5 mL oral suspensio n 2023 [facility], [address], [place], [place], [address], 11/04/2024 11:27:21 Robafen DM 5 mg-50 mg/5 mL oral liquid [address] [facility], [address], [place], [address], 12/09/2024 17:29:26 Patient TargetsNo targets recorded. Patient Instructions Encounter Date Encounter Id Patient Instructions Last Modified By Organization Details Last Modified Time 05/18/2023 [id number] Call or return for questions or concerns. Not available 05/18/2023 10:44:08 11/07/2023 [id number] Call or return for questions or concerns. Not available 11/07/2023 14:22:51 10/28/2024 [id number] Call or return for questions or concerns. Not available 10/28/2024 11:35:17 Reason for Referral General Surgeon Referral for Occult blood detected in feces Referring Physician: Alecia Livingston, Family Medicine, Encounter Date: 05/18/2023 Results Created Date Observation Date Name Description Value Unit Range Abnormal Flag Note LastModifiedBy Organization Detail LastModifiedTime 05/19/20 23 05/19/2023 CMP, serum or plasm a glucose 151.0 mg/dL 60.0-9 9.0 high Not Available [facility] ([facility]) [address] [place], [address], 05/18/2023 10:41:28 05/19/2005/19/2023 CMP, serum or plasm a BUN (blood urea nitrogen) 12.0 mg/dL 10.0-2 6.0 Not Available [facility] ([facility]) [address] [place], [address], 05/18/2023 10:41:28 05/19/2005/19/2023 CMP, serum or plasm a creatinine (serum) 0.8 mg/dL 0.4-1. 5 Not Available [facility] ([facility]) [address] [place], [address], 05/18/2023 10:41:28 05/19/2005/19/2023 CMP, serum or plasm a BUN/creatini ne ratio 15.00 ratio Not Available [facility] ( [facility]) [address] [place], [address], 05/18/2023 10:41:28 05/19/2005/19/2023 CMP, serum or plasm a eGFR calculated 103.1 Not Available [facility] ([facility]) [address] [place], [address], 05/18/2023 10:41:28 05/19/2005/19/2023 CMP, serum or plasm a total protein 6.8 g/dL 6.0-8. 5 Not Available [facility] ([facility]) [address] [place], [address], 05/18/2023 10:41:28 05/19/2005/19/2023 CMP, serum or plasm a total bilirubin 0.3 mg/dL 0.2-1. 3 Not Available [facility] ([facility]) [address] [place], [address], 05/18/2023 10:41:28 05/19/2005/19/2023 CMP, serum or plasm a albuminn 4.1 g/dL 3.5-5. 5 Not Available [facility] ([facility]) [address] [place], [address], 05/18/2023 10:41:28 05/19/2005/19/2023 CMP, serum or plasm a globulin 2.7 calc Not Available [facility] ([facility]) [address] [place], [address], 05/18/2023 10:41:28 05/19/2005/19/2023 CMP, serum or plasm a AST (SGOT) 27.0 U/L 0.0-46 .0 Not Available [facility] ([facility]) [address] [place], [address], 05/18/2023 10:41:28 05/19/2005/19/2023 CMP, serum or plasm a altv (SGPT) 21.0 U/L 13.0-6 9.0 Not Available [facility] ([facility]) [address] [place], [address], 05/18/2023 10:41:28 05/19/2005/19/2023 CMP, serum or plasm a A/G ratio 1.5 ratio Not Available [facility] ([facility]) [address] [place], [address], 05/18/2023 10:41:28 05/19/2005/19/2023 CMP, serum or plasm a ALP phos 116.0 U/L 30.0-1 40.0 Not Available [facility] ([facility]) [address] [place] [address], [address], 05/18/2023 10:41:28 05/19/2005/19/2023 CMP, serum or plasm a calcium 8.8 mg/dL 8.4-10 .5 Not Available [facility] ([facility]) [address] [place], [address], 05/18/2023 10:41:28 05/19/2005/19/2023 CMP, serum or plasm a sodium 147.0 mmol/ L 136.0- 145.0 high Not Available [facility] ([facility]) [address] [place], [address], 05/18/2023 10:41:28 05/19/2005/19/2023 CMP, serum or plasm a potassium 3.7 mmol/ L 3.5-5. 1 Not Available [facility] ([facility]) [address] [place], [address], 05/18/2023 10:41:28 05/19/2005/19/2023 CMP, serum or plasm a chloride 111.0 mmol/ L 98.0-1 10.0 high Not Available [facility] ([facility]) [address] [place], [address], 05/18/2023 10:41:28 05/19/2005/19/2023 CMP, serum or plasm a CO2 22.0 mmol/ L 22.0-3 1.0 Not Available [facility] ([facility]) [address] [place], [address], 05/18/2023 10:41:28 05/19/2005/19/2023 CMP, serum or plasm a anion gap 14.0 calc Not Available [facility] ([facility]) [address] [place], [address], 05/18/2023 10:41:28 05/19/2005/19/2023 CMP, serum or plasm a osmolality 305.6 calc Not Available [facility] ([facility]) [address] [place], [address], 05/18/2023 10:41:28 05/19/2005/19/2023 CBC WBC 6.74 X10^3 /uL 4.0-10 .5 normal Not Available [facility] ([facility]) [address] [place], [address], 05/18/2023 10:18:30 05/19/2005/19/2023 CBC RBC 4.90 X10^6 /uL 3.50-5 .50 normal Not Available [facility] ([facility]) [address] [place], [address], 05/18/2023 10:18:30 05/19/2005/19/2023 CBC HGB 12.68 g/dL 12.0-1 6.0 normal Not Available [facility] ([facility]) [address] [place], [address], 05/18/2023 10:18:30 05/19/2005/19/2023 CBC HCT 40.2 % 37.0-4 7.0 normal Not Available [facility] ([facility]) [address] [place], [address], 05/18/2023 10:18:30 05/19/2005/19/2023 CBC MCV 82.1 fL 80.0-9 9.0 normal Not Available [facility] ([facility]) [address] [place], [address], 05/18/2023 10:18:30 05/19/2005/19/2023 CBC MCH 25.9 pg 27.0-3 2.0 low Not Available [facility] ([facility]) [address] [place], [address], 05/18/2023 10:18:30 05/19/20 23 05/19/2023 CBC MCHC 31.5 g/dL 32.0-3 6.0 low Not Available [facility] ([facility]) [address] [place], [address], 05/18/2023 10:18:30 05/19/2005/19/2023 CBC RDW 39.4 % 11.5-1 4.6 high Not Available [facility] ([facility]) [address] [place], [address], 05/18/2023 10:18:30 05/19/2005/19/2023 CBC plt 305.2 10^3/ uL 140.0- 451.0 normal Not Available [facility] ([facility]) [address] [place], [address], 05/18/2023 10:18:30 05/19/20 23 05/19/2023 CBC lymphocytes % 19.43 % 20.0-5 0.0 low Not Available [facility] ([facility]) [address] [place], [address], 05/18/2023 10:18:30 05/19/2005/19/2023 CBC granulocytes % 72.98 % 30.0-7 0.0 high Not Available [facility] ([facility]) [address] [place], [address], 05/18/2023 10:18:30 05/19/20 23 05/19/2023 CBC monocytes % 5.22 % 2.0-10 .0 normal Not Available [facility] ([facility]) [address] [place], [address], 05/18/2023 10:18:30 05/19/20 23 05/19/2023 CBC granulocytes # 4.92 X10^3 /uL normal Not Available [facility] ([facility]) [address] [place], [address], 05/18/2023 10:18:30 05/19/20 23 05/19/2023 CBC lymphocytes # 19.43 X10^3 /uL normal Not Available [facility] ([facility]) [address] [place], [address], 05/18/2023 10:18:30 05/19/20 23 05/19/2023 CBC monocytes # 0.35 X10^3 /uL normal Not Available [facility] ([facility]) [address] [place], [address], 05/18/2023 10:18:30 10/28/20 24 10/28/2024 CBC WBC 8.0 x10 4.5-10 .5 Not Available [facility] [address] [facility] [address], [place], [address], 10/28/2024 12:57:18 10/28/20 24 10/28/2024 CBC RBC 4.79 x10 4.30-5 .90 Not Available [facility] [address] [facility] [address], [place], [address], 10/28/2024 12:57:18 10/28/20 24 10/28/2024 CBC HGB 12.6 g/dL 13.5-1 8.0 low Not Available [facility] [address] [facility] [address], [place], [address], 10/28/2024 12:57:18 10/28/20 24 10/28/2024 CBC HCT 39.4 % 35.0-6 0.0 Not Available [facility] [address] [facility] [address], [place], [address], 10/28/2024 12:57:18 10/28/20 24 10/28/2024 CBC MCV 82.3 fL 80.0-9 9.9 Not Available [facility] [address] [facility] [address], [place], [address], 10/28/2024 12:57:18 10/28/20 24 10/28/2024 CBC MCH 26.3 pg 27.0-3 2.0 low Not Available [facility] [address] [facility] [address] [facility] [address], [place], [address], 10/28/2024 12:57:18 10/28/20 24 10/28/2024 CBC MCHC 32.0 g/dL 32.0-3 6.0 Not Available [facility] [address] [facility] [address], [place], [address], 10/28/2024 12:57:18 10/28/20 24 10/28/2024 CBC RDW 17.5 % 11.5-1 4.5 high Not Available [facility] [address] [facility] [address], [place], [address], 10/28/2024 12:57:18 10/28/20 24 10/28/2024 CBC plt 260.5 x10 150.0- 451.0 Not Available [facility] [address] [facility] [address], [place], [address], 10/28/2024 12:57:18 10/28/20 24 10/28/2024 CBC lymphocytes % 20.4 % 20.0-5 0.0 Not Available [facility] [address] [facility] [address], [place], [address], 10/28/2024 12:57:18 10/28/20 24 10/28/2024 CBC granulcytes % 70.2 % 30.0-7 0.0 high Not Available [facility] [address] [facility] [address] [facility] [address], [place], [address], 10/28/2024 12:57:18 10/28/20 24 10/28/2024 CBC monocytes % 6.7 % 2.0-16 .0 Not Available [facility] [address] [facility] [address] [facility] [facility], [place], [address], 10/28/2024 12:57:18 10/28/20 24 10/28/2024 CBC granulcytes# 5.6 x10 Not Simran ilable [facility] [address] [facility] [address], [place], [address], 10/28/2024 12:57:18 10/28/20 24 10/28/2024 CBC lymphocytes # 1.6 x10 Not Available [facility] [address], [place], [address], 10/28/2024 12:57:18 10/28/20 24 10/28/2024 CBC monocytes # 0.5 x10 Not Avai lable [facility] [address] [facility], [place], [address], 10/28/2024 12:57:18 10/28/20 24 10/28/2024 CMP (MALE ) glucose 90.0 mg/dL 60.0-9 9.0 Not Available [facility] [address] [facility], [place], [address], 10/28/2024 13:58:38 10/28/20 24 10/28/2024 CMP (MALE ) BUN (blood urea nitrogen) 23.0 mg/dL 10.0-2 6.0 Not Available [facility] [address] [facility] [address], [place], [address], 10/28/2024 13:58:38 10/28/20 24 10/28/2024 CMP (MALE ) creatinine (serum) 0.9 mg/dL 0.4-1. 5 Not Available [facility] [address] [facility], [place], [address], 10/28/2024 13:58:38 10/28/20 24 10/28/2024 CMP (MALE ) BUN/creatini ne ratio 25.56 ratio Not Available [facility] [address] [facility], [place], [address], 10/28/2024 13:58:38 10/28/20 24 10/28/2024 CMP (MALE ) eGFR calculated 89.5 Not Available [facility] [address] [facility], [place], [address], 10/28/2024 13:58:38 10/28/20 24 10/28/2024 CMP (MALE ) total protein 7.1 g/dL 6.0-8. 5 Not Available [facility] [address] [facility], [place], [address], 10/28/2024 13:58:38 10/28/20 24 10/28/2024 CMP (MALE ) total bilirubin 0.4 mg/dL 0.2-1. 3 Not Available [facility] [address] [facility], [place], [address], 10/28/2024 13:58:38 10/28/20 24 10/28/2024 CMP (MALE ) albumin 4.1 g/dL 3.5-5. 5 Not Available [facility] [address] [facility], [place], [address], 10/28/2024 13:58:38 10/28/20 24 10/28/2024 CMP (MALE ) globulin 3.0 calc Not Available [facility] [address] [facility], [place], [address], 10/28/2024 13:58:38 10/28/20 24 10/28/2024 CMP (MALE ) AST (SGOT) 17.0 U/L 0.0-46 .0 Not Available [facility] [address] [facility], [place], [address], 10/28/2024 13:58:38 10/28/20 24 10/28/2024 CMP (MALE ) altv (SGPT) 11.0 U/L 13.0-6 9.0 abnormal Not Available [facility] [address] [facility], [place], [address], 10/28/2024 13:58:38 10/28/20 24 10/28/2024 CMP (MALE ) A/G ratio 1.4 ratio Not Available [facility] [address] [facility], [place], [address], 10/28/2024 13:58:38 10/28/20 24 10/28/2024 CMP (MALE ) ALP phos 158.0 U/L 30.0-1 40.0 abnormal Not Available [facility] [address] [facility], [place], [address], 10/28/2024 13:58:38 10/28/20 24 10/28/2024 CMP (MALE ) calcium 9.4 mg/dL 8.4-10 .5 Not Available [facility] [address] [facility], [place], [address], 10/28/2024 13:58:38 10/28/20 24 10/28/2024 CMP (MALE ) sodium 145.0 mmol/ L 136.0- 145.0 Not Available [facility] [address] [facility], [place], [address], 10/28/2024 13:58:38 10/28/20 24 10/28/2024 CMP (MALE ) potassium 4.3 mmol/ L 3.5-5. 1 Not Available [facility] [address] [address], [place], [address], 10/28/2024 13:58:38 10/28/20 24 10/28/2024 CMP (MALE ) chloride 109.0 mmol/ L 98.0-1 10.0 normal Not Available [facility] [address] [facility] [address] [facility] [address], [place], [address], 10/28/2024 13:58:38 10/28/20 24 10/28/2024 CMP (MALE ) C02 26.0 mmol/ L 22.0-3 1.0 Not Available [facility] [address] [facility] [address] [facility] [address], [place], [address], 10/28/2024 13:58:38 10/28/20 24 10/28/2024 CMP (MALE ) anion gap 10.0 calc Not Available [facility] [address] [facility], [place], [address], 10/28/2024 13:58:38 10/28/20 24 10/28/2024 CMP (MALE ) osmolality 302.2 calc Not Available [facility] [address] [facility] [address], [place], [address], 10/28/2024 13:58:38 10/28/20 24 10/28/2024 LIPID PROFI LE (MALE ) cholesterol 190.0 mg/dL 0.0-20 0.0 Not Available [facility] [address] [facility] [facility] [address], [place], [address], 10/28/2024 13:58:40 10/28/20 24 10/28/2024 LIPID PROFI LE (MALE ) trig 87.0 mg/dL 0.0-15 0.0 Not Available [facility] [address] [facility] [address], [place], [address], 10/28/2024 13:58:40 10/28/20 24 10/28/2024 LIPID PROFI LE (MALE ) HDL - direct 44.0 mg/dL >40.0 Not Available [facility] [address] [facility], [place], [address], 10/28/2024 13:58:40 10/28/20 24 10/28/2024 LIPID PROFI LE (MALE ) VLDL - direct 17.4 mg/dL Not Available [facility] [address] [facility], [place], [address], 10/28/2024 13:58:40 10/28/20 24 10/28/2024 LIPID PROFI LE (MALE ) LDL - direct 128.6 mg/dL 0.0-13 0.0 Not Available [facility] [address] [facility], [place], [address], 10/28/2024 13:58:40 10/28/20 24 10/28/2024 TSH TSH 1.57 uIU/m L 0.49-3 .82 normal Not Available [facility] [address] [facility], [place], [address], 10/28/2024 14:49:28 Result Notes None recorded. Problems Name Problem SNOMED Code Status Onset Date Resolution Date Notes Provider Name and Address Organization Details Recorded Time Venous stasis 87066534 Completed 201910/08/2020 venous stasis - Status is Resolved ; Resolved Date: 10/08/20; 10/08/20 11:38AM by Eh Beal CMT, Riky on/Adden dum; Promoted ; acuity set as *; Not Available [facility] 3 03:10:34 Constipa tion 08585332 Completed 201902/06/2020 constipa tion - Status is Inactive ; 02/06/20 12:39PM by Eh Beal CMT, Annotati on/Adden dum; Promoted ; acuity set as *; Not Available [facility] 3 03:10:34 Allergic rhinitis 06253586 Completed 201902/06/2020 Allergic Rhinitis - Status is Inactive ; Recorded 02/06/20 20 12:29PM by Eh Beal CMT, Riky on/Chris herzog; Promoted ; acuity set as *; Not Available [facility] 3 03:10:34 Congenit al quadripl egia 959521923 Active 2023 [facility] cherry, [facility] 4 15:25:50 Seizure disorder 607175768 Active 2023 [facility] cherry, [facility] 4 16:04:33 Urinary incontin ence 891392479 Active 2023 [facility], [facility] 4 16:04:45 Chronic constipa tion 232569514 Active 2023 [facility] cherry [facility] 4 16:04:56 Congenit al blindnes s 37956315 Active 2023 [facility] cherry, [facility] 4 16:05:08 Chronic gastriti s 7445872 [facility] 16:05:18 Hiatal hernia 71111228 Active 2023 [facility] cherry, [facility] 4 16:05:32 Gastro-e sophagea l reflux disease with esophagi tis 329673184 Active 2023 [facility] cherry [facility] 4 16:05:44 Hyperlip idemia 79891219 Active 2023 [facility] cherry [facility] 4 16:05:54 Optic atrophy 53919657 Active 2023 [facility] cherry [facility] 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 Annual TB test or assessme nt. Annula flu vaccine. annual physical exam. annual dental exam. annual vision exam. Every 2 hour turns while in bed. Choking risk-Mon itor close during meals. [facility] cherry [facility], RumaL.CJanie 4 16:08:18 At increase d risk of choking 654016746 Active 2023 [facility] cherry [facility], L.L.CJanie 4 16:09:20 Profound intellec tual disabili ty 39749137 Active 2023 E[facility] cherry [facility], RumaLJanieCJanie 4 16:09:39 Lives in independ ent mcfp 907065736 Active [address] [facility] resident . EH cherry [facility], RumaLJanieCJanie 4 16:13:23 Acute respirat ory distress syndrome due to COVID-19 [id number] 3285989 Active 2024 E[facility] cherry [facility], RuamLJanieCJanie 5 22:23:34 Developm ental delay 935880232 Active 2024 E[facility] cherry [facility], RumaLJanieCJanie 5 22:23:56 Pulmonar y embolism 45598307 Active 2024 HE cherry [facility] 5 22:25:17 Myocardi eda infarcti on 92549013 Active 2024 [facility] cherry [facility], L.L.CJanie 5 22:27:12 Problem Notes None recorded. Procedures Surgical History Date Name Laterality Status Provider Name and Address Organization Details Recorded Time 4 cataract surgery completed MANDI THOMPSON [address] [place], [address], [facility], L.L[facility]CJanie 10/28/2024 11:30:31 3 Colonoscopy completed EH BEAL [facility], L.L.CJanie 10/03/2023 10:33:53 3 endoscopy completed EHRAHEEM BEAL [facility] 10/03/2023 10:37:[address] of abdomen completed EHRAHEEM BEAL [facility], L.L.CJanie 05/02/2023 17:17:40 placement of gastrostomy tube completed [facility] 05/17/2023 19:15:47 Imaging Results None recorded. Procedure Notes None recorded. Medical Equipment None Reported. Allergies No known drug allergies Medications Name Sig Start Date Stop Date Status Note LastModified by Organization Details LastModified Time multivita min tablet TAKE ONE TABLET BY MOUTH DAILY 11/07 completed Not Available Not Available Not Available Abreva 10 % topical cream daily as needed 11/07 completed [id number]; Recorded 01/13/20 22 11:18AM by Eh Beal CMT (Babatunde palacios through [facility]), Refill Request; Refill Quantity : 1; Each; Not Available Not Available Not Available clonidine HCl 0.1 mg tablet two times daily,pam th eyes 11/07 completed [id number]; Recorded 01/13/20 22 11:19AM by Eh Beal CMT (Babatunde palacios through [facility]), Refill Request; Refill Quantity : 1; Millilit er; Not Available Not Available Not Available acetamino phen 325 mg tablet TAKE TWO TABLETS BY MOUTH EVERY 6 HOURS NEEDED 2023 active Not Available Not Available Not Avai lable cetirizin e 10 mg tablet TAKE ONE TABLET BY MOUTH EVERY DAY active Not Available Not Available No t Available citalopra m 10 mg/5 mL oral solution TAKE ONE TEASPOON FUL (5 ML'S) BY MOUTH DAILY 11/07 completed Not Available Not Available Not Available citalopra m 10 mg tablet TAKE ONE TABLET BY MOUTH DAILY active Not Available Not Available No t Available senna 8.6 mg tablet TAKE ONE TABLET BY MOUTH DAILY active Not Available Not Available No t Available Claritin 10 mg tablet daily, as needed 11/07 completed 01288; Recorded 10/08/20 20 11:40AM by Eh Beal CMT (Authori philip through MANDI Adan), Historic al Summary; Refill Quantity : 0; Not Available Not Available Not Available sucralfat e 1 gram tablet TAKE ONE TABLET BY MOUTH TWICE DAILY 11/07 completed Not Available Not Available Not Available Milk of Magnesia 400 mg/5 mL oral suspensio n TAKE 30 ML BY MOUTH DAILY NEEDED 2023 active Not Available Not Available Not Avai lable meloxicam 7.5 mg tablet TAKE ONE TABLET BY MOUTH EVERY DAY active Not Available Not Available No t Available Tussin DM 10-100 mg/5mL oral syrup every four hours, as needed 11/07 completed 1 bottle; 53200; Recorded 01/13/20 23 4:45PM by Eh Beal CMT (Authori philip through MANDI Adan), Refill Request; Refill Quantity : 1; Millilit er; Not Available Not Available Not Available famotidin e 20 mg tablet TAKE ONE TABLET BY MOUTH DAILY NEEDED 2023 active Not Available Not Available Not Avai lable pantopraz ole 40 mg tablet,de layed release TAKE ONE TABLET BY MOUTH TWICE DAILY active Not Available Not Available No t Available docusate sodium 100 mg capsule TAKE FOUR CAPSULES BY MOUTH DAY OF SCOPE; TAKE DIRECTED FOR COLONOSC OPY PREP 11/07 completed Not Available Not Available Not Available levetirac etam 750 mg tablet TAKE TWO TABLETS BY MOUTH TWICE DAILY 11/07 completed Not Available Not Available Not Available mupirocin 2 % topical ointment at bedtime, NEEDED 11/07 completed 56435; Recorded 02/25/20 22 11:16AM by Eh Beal CMT (Authori philip through MANDI Adan), Office Visit; Refill Quantity : 1; Applicat or; Not Available Not Available Not Available polyethyl kash glycol 3350 17 gram/dose oral powder MIX ONE CAPFUL IN LIQUID AND DRINK DAILY 2024 active Not Available Not Available Not Avai lable fluticaso ne propionat e 50 mcg/actua tion nasal spray,samy pension USE ONE SPRAY EVERY DAY IN EACH NOSTRIL active Not Available Not Available No t Available levetirac etam 100 mg/mL oral solution TAKE 2 TEASPOON FULS (10 ML'S) BY MOUTH TWICE DAILY 11/07 completed Not Available Not Available Not Available lactulose 10 gram/15 mL oral solution TAKE 2 TABLESPO ONFULS (30 ML'S) BY MOUTH DAILY AND NEEDED 2023 active Not Available Not Available Not Avai lable Flonase daily each nare 11/07 completed 52970; Recorded 10/08/20 20 11:42AM by Eh Beal CMT (Authorsofi palacios through MANDI Adan), Historic al Summary; Refill Quantity : 0; Not Available Not Available Not Available Lipitor at bedtime 11/07 completed 41689; Recorded 02/04/20 21 11:40AM by Eh Beal CMT (Authori philip through MANDI Adan), Refill Request; Refill Quantity : 90; Tablet; Not Available Not Available Not Available lactulose daily and prn 11/07 completed 33691; Recorded 07/12/20 22 3:56PM by Eh Beal CMT (Authori philip through MANDI Adan), Refill Request; Refill Quantity : 2700; Millilit er; Not Available Not Available Not Available Multivita mins daily 11/07 completed 91067; Recorded 10/26/20 10:08AM by Eh Beal CMT (Authori zed through MANDI Adan), Refill Request; Refill Quantity : 90; Tablet; Not Available Not Available Not Available Miralax daily, as needed 11/07 completed DISPENSE 1 BOTTLE DOC CS/smf; 10130; Recorded 04/18/20 12:15PM by Ann-Marie Almanza RN (Authori zed through Mati Brar DO), Refill Request; Refill Quantity : 1; Each; Not Available Not Available Not Available levetirac etam two times daily 11/07 completed 28869; Recorded 10/08/20 11:49AM by Eh Beal CMT (Authori philip through MANDI Adan), Historic al Summary; Refill Quantity : 0; Not Available Not Available Not Available levetirac etam 1,000 mg tablet TAKE ONE TABLET BY MOUTH IN THE MORNING AND TAKE ONE TABLET IN THE EVENING active Not Available Not Available No t Available olopatadi ne 0.2 % eye drops INSTILL TWO DROPS IN EYES DAILY NEEDED 11/07 completed Not Available Not Available Not Available wheelchai r as directed 05/08 completed Repairs and parts as needed.;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
--- OUTSIDE RECORDS SUMMARY | 2025-01-08 08:18 | XMS_ITS | Continuity of Care Document ---
Author Organization [facility] Address [id number] [address] Phone Care Team Providers Care Director Business Intelligence Name Role Phone Gustavo WALTER Von Unavailable Unavailable Medications Medication Instructions Dosage Effective Dates (start - stop) Status Comments Eliquis 5 mg tablet take 1 tablet by oral route 2 times every day 5 MG - Active Celexa 10 mg tablet take 1 tablet by oral route every day 10 MG - Active lactulose 10 gram/15 mL (15 mL) oral solution take 15 milliliter by oral route every day 10 G - Active Multi Vitamin 9 mg iron/15 mL oral liquid - Active Fycompa 8 mg tablet take 1 tablet by oral route every day at bedtime 8 MG - Active MILK OF MAGNESIA (unknown strength) take 30 milliliter by oral route every day as needed, followed by a full glass (8 oz) of liquid Not Available - Active A AND D DIAPER RASH (unknown strength) Not Available - Active SENOKOT (unknown strength) take 2 tablet by oral route every day as needed for constipation Not Available - Active VITAMIN C (unknown strength) Not Available - Active KRISTALOSE (unknown strength) take 1 packet by oral route every day dissolved in 4 ounces of water Not Available - Active KEPPRA (unknown strength) infuse by intravenous route 2 times every day over Not Available - Active COLACE (unknown strength) take 1 capsule by oral route every day at bedtime as needed Not Available - Active TRANXENE T-TAB (unknown strength) take 1 tablet by oral route 2 times every day Not Available - Active TYLENOL (unknown strength) take 1 tablet by oral route every 4 hours as needed Not Available - Active ROBITUSSIN NIGHTTIME COUGH DM (unknown strength) Not Available - Active CLARITIN (unknown strength) take 10 milliliter by oral route every day Not Available - Active DESITIN DAILY DEFENSE (unknown strength) Not Available - Active CALMOSEPTINE (unknown strength) Not Available - Active Procedures Procedure Date Surgical Removal Of Erupted Tooth Requir ing Elevat Periodontal Scaling And Root Planing ??? One To Thre Periodontal Scaling And Root Planing ??? Four Or Mor Periodontal Scaling And Root Planing ??? Four Or Mor Periodontal Scaling And Root Planing ??? Four Or Mor Periodic Oral Evaluation ??? Established Patient Caries Moderate Risk Exempt From [facility] Call Bitewings ??? Four Films Intraoral ??? Periapical First Film Intraoral ??? Periapical Each Additional Film Intraoral ??? Periapical Each Additional Film Intraoral ??? Periapical Each Additional Film Periodic Oral Eval ??? Est Patient - Manuel Medicaid Limited Oral Evaluation ??? Problem Focu sed Limited Oral Evaluation ??? Problem Focu sed Prophylaxis ??? Adult Intraoral ??? Periapical First Film Intraoral ??? Periapical Each Additional Film Intraoral ??? Periapical Each Additional Film Periodic Oral Evaluation ??? Established Patient Prophylaxis ??? Adult Periodic Oral Evaluation ??? Established Patient EDR Approval Note Prophylaxis ??? Adult EDR Approval Note Treatment Plan Complete Limited Oral Evaluation ??? Problem Focu sed EDR Approval Note Topical Fluoride Varnish - Adult Medicai d Prophylaxis ??? Adult EDR Approval Note Periodic Oral Eval ??? Est Patient - Manuel lt Medicaid Prophylaxis ??? Adult EDR Approval Note EDR Approval Note EDR Approval Note EDR Approval Note Prophylaxis ??? Adult Periodic Oral Eval ??? Est Patient - Manuel lt Medicaid EDR Approval Note EDR Approval Note Limited Oral Evaluation ??? Problem Focu sed EDR Approval Note Limited Oral Evaluation ??? Problem Focu sed Self-management Goals Reviewed 16 Oral Hygiene Instructions Nutritional Counseling For Control Of De ntal Disea Caries High Risk EDR Approval Note EDR Approval Note EDR Approval Note Topical Fluoride Varnish; Therapeutic Ap plication Prophylaxis ??? Adult EDR Approval Note Limited Oral Evaluation ??? Problem Focu sed EDR Approval Note No Work Today/No Charge EDR Approval Note New Caries Lesion Oral Hygiene Instructions Caries High Risk EDR Approval Note Topical Fluoride Varnish; Therapeutic Ap plication Prophylaxis ??? Adult Limited Oral Evaluation ??? Problem Focu sed EDR Approval Note Self-management Goals Reviewed 15 Oral Hygiene Instructions Nutritional Counseling For Control Of De ntal Disea Caries High Risk No Work Today/No Charge EDR Approval Note Periodic Oral Evaluation ??? Established Patient Periodic Oral Evaluation ??? Established Patient EDR Approval Note Prophylaxis ??? Adult Topical Fluoride Varnish; Therapeutic Ap plication Comprehensive Oral Evaluation ??? New Or Established Topical Fluoride Varnish; Therapeutic Ap plication Prophylaxis ??? Adult EDR Approval Note EDR Approval Note Advance Directives Directive Yes / No Effective Date File Name No Information Encounters Encounter Description Practice Location Reason(s) For Visit Diagnoses Date Provider Providers Copied on Encounter [facility], [id number] [id number], [id number], [place] tel:[phone] [facility] Encounter for dental exam and cleaning w/o abnormal findings 4 Gustavo Longoria. [address] [place], [address], [place]. tel:[phone] Referring Provider: Von Figueroa, [address] [place], [address]. tel:[phone] [facility], [id number] [place], [id number], [place] tel:[phone] Dental [facility] Encounter for dental exam and cleaning w/o abnormal findings 3 Gustavo Longoria. [address] [place], [address], [place]. tel:[phone] Referring Provider: Von Figueroa, [address] [place], [address]. tel:[phone] [facility], [id number], [id number], [place] tel:[phone] Dental General No Information 2 Jignesh Stewart. [address], [place], [address], [place]. tel:[phone] Referring Provider: Pat Egan, [address] [place], [address]. tel:[phone] [facility], [id number], [id number], [place] tel:[phone] [facility] Encounter for dental exam and cleaning w/o abnormal findings 1 Talon Mejía. [address], [place], [address], [place]. tel:[phone] Referring Provider: Kym Hanley, [address] [place], [address]. tel:[phone] [facility], [id number] [place], [id number], [place] tel:[phone] [facility] Encounter for dental exam and cleaning w/o abnormal findings 0 No Information [facility], [id number] [place], [id number], [place] tel:[phone] [facility] Encounter for dental exam and cleaning w/o abnormal findings Jan-2 6-201 9 No Information [facility], [id number] [place], [address], [place] tel:[phone] [facility] Encounter for dental exam and cleaning w/o abnormal findings Jul- 1-201 8 Talon Mejía. [address], [place], [id number], [place]. tel:[phone] Referring Provider: Kym Hanley, [address] [place], [address]. tel:[phone] [facility], [id number] 169[place], [address], [place] tel:[phone] [facility] Encounter for dental exam and cleaning w/o abnormal findings Mar-0 8-201 8 No Information [facility], [id number]-Ab [facility], [place], [place], [address], [place] tel:[phone] [facility] Encounter for dental exam and cleaning w/o abnormal findings 7- 7 No Information [facility], [id number] 9216[address]ZV-Sq [facility], [place], [place], [address], [place] tel:[phone] [facility] Encounter for dental exam and cleaning w/o abnormal findings 7 Gustavo Longoria. [address] [place], [address], [place]. tel:[phone] Referring Provider: Von Figueroa, [address] [place], [address]. tel:[phone] [facility], [id number] [address] [place], [id number], [place] tel:[phone] [facility] Encounter for dental exam and cleaning w/o abnormal findings 0-201 6 Talon Mejía. [address], [place], [address], [place]. tel:[phone] Referring Provider: Kym Hanley, [address] [place], [address]. tel:[phone] [facility], [id number] 3327[address] [place], [place], [address], [place] tel:[phone] [facility] Encounter for dental exam and cleaning w/o abnormal findings 5- 6 No Information [facility], [id number] 501[address]XW[facility] [place], [address], [place] tel:[phone] [facility] No Information 3-201 6 Talon Mejía. [address], [place], [address], [place]. tel:[phone] Referring Provider: Kym Hanley, [address] [place], [address]. tel:[phone] [facility], [id number] [address]PZ[place], [address], [place] tel:[phone] [facility] Encounter for dental exam and cleaning w/o abnormal findings No Information Consulting Provider: Kym Ambrose, [address] [place], [address]. tel:[phone] [facility], [id number] [place], [address], [place] tel:[phone] [facility] No Information 5 Talon Mejía. [address], [place], [address], [place]. tel:[phone] Referring Provider: Kym Hanley, [address] [place], [address]. tel:[phone] [facility], [id number] 4059[place], [id number], [place] tel:[phone] [facility] No Information 5 Talon Mejía. [address], [place], [address], [place]. tel:[phone] Referring Provider: Kym Hanley, [address] [place], [address]. tel:[phone] [facility], [id number] [place], [address], [place] tel:[phone] [facility] No Information 5 No Information Consulting Provider: Lindsey Olsen, [address] [place], [address]. tel:[phone] Family History Family Member Type Diagnosis Age At Onset No Information Payers Payer name Insurance type Covered republican ID Lizandro tsai(s) [employer] Medicaid [id number] Social History Type Description Quantity Date Captured Comments Alcohol Use Details No Caffeine Use Details Unknown Tobacco Use Status No Information Smoking Status No Information Sex Male Sexual Orientation Decline To Specify Gender Identity Male Chief Complaint And Reason For Visit No Information Reason For Referral Reason For Referral No Information Plan Of Treatment Date Type Action Status Goal Tobacco cessation counseling completed Goal Tobacco cessation counseling completed Goal Tobacco cessation counseling completed Goal Tobacco cessation counseling completed History Of Present Illness Encounter Date Complaint History Of Prese nt Illness No Information Functional Status Date Functional Assessmen t No Information Instructions Date Instruction Additional Infor codey Lifestyle education Related to D ental Examination Lifestyle education Related to D ental Examination Lifestyle education Related to D ental Examination Lifestyle education Related to D ental Examination Lifestyle education Related to D ental Examination Assessments Type Assessment Date No Information Patient Care Teams Name Effective Dates (start - stop) Status Members No Information
[2025-01-08] MEDS: lactulose oral liq 20 gm/30 mL UDC PO (08:22)
[2025-01-08] MEDS: polyethylene glycol 3350 Pkt 17 gm PO (08:22)
[2025-01-08] MEDS: levETIRAcetam 500 mg Tablet 1000 MG PO ×2 (08:24→17:51)
[2025-01-08] MEDS: citalopram 20 mg Tablet 10 MG PO (08:24)
[2025-01-08] MEDS: amiodarone 200 mg Tablet PO (08:24)
[2025-01-08] MEDS: metoprolol tartrate 25 mg Tablet 12.5 MG PO ×2 (08:24→21:41)
[2025-01-08] MEDS: pantoprazole DR 40 mg Tablet PO ×2 (08:25→17:51)
[2025-01-08] MEDS: multivitamin therapeutic Tablet 1 TAB PO (08:25)
[2025-01-08] MEDS: FUROsemide 10 mg/mL SDV 2mL 20 MG IVP (08:25)
[2025-01-08] MEDS: aspirin 81 mg EC Tablet PO (08:25)
[2025-01-08] MEDS: sennosides 8.6 mg Tablet PO (08:25)
[2025-01-08] MEDS: clopidogrel 75 mg Tablet PO (08:25)
[2025-01-08] MEDS: fluticasone nasal spray 16gm Btl 1 SPRAY INTRANASAL (08:38)
[2025-01-08 09:05] LABS: Basophils # 0.1 10^3/uL (0.0-0.1); Basophils % 0.9 %; Eosinophils # 0.4 10^3/uL (0.0-0.8); Hematocrit 33.3 % (37-53); Lymphocytes # 1.3 10^3/uL (0.8-4.8); Lymphocytes % 9.3 %; Mean Corpuscular HGB Conc 29.4 g/dL (30-55); Mean Corpuscular Hemoglobin 27.8 pg (27-33); Mean Corpuscular Volume 94.3 fl (82-101); Mean Platelet Volume 12.8 fL (7.4-10.4); Monocytes % 6.9 %; Neutrophils # 10.96 10^3/uL (1.8-7.7); Neutrophils % 79.2 %; Nucleated Red Blood Cells % 0 %; Platelet Count 278 10^3/cmm (157-399); Red Blood Count 3.53 10^6/uL (3.85-5.65); Red Cell Distribution Width 21.8 % (12.1-15.1); White Blood Count 13.83 10^3/uL (3.29-11.43)
[2025-01-08 09:30] LABS: Alanine Aminotransferase 61 U/L (0-41); Albumin Level 3.1 g/dL (3.5-5.2); Alkaline Phosphatase 106 U/L (40-130); Anion Gap 18.9 (5-19); Aspartate Amino Transferase 26 U/L (0-40); Blood Urea Nitrogen 38 mg/dL (8-23); Calcium 8.6 mg/dL (8.5-10.5); Carbon Dioxide 22 mmol/L (22-29); Chloride 114 mmol/L (98-107); Creatinine Clr Calc Pharmacy 33.5818; Globulin 4.7 g/dL (1.3-4.6); Glomerular Filtration Rate 28.5 mL/min (90-130); Glucose 127 mg/dL (65-115); Osmolality Calculated 323 mOsm/kg (285-295); Potassium 3.9 mmol/L (3.5-5.1); Sodium 151 mmol/L (136-145); Total Bilirubin 0.5 mg/dL (0.15-1.2); Total Protein 7.8 g/dL (6.6-8.7)
[2025-01-08 13:09] LABS: Partial Thromboplastin Time 38.5 SECONDS (23.9-36.7)
[2025-01-08] MEDS: heparin 5,000 unit/mL INJ 1 mL IVP ×2 (14:29→22:37)
[2025-01-08] MEDS: heparin drip 25,000 UNIT/500 ML PREMIX 23 UNIT IV (14:30)
--- NOTE | 2025-01-08 16:32 | PM.PN ---
Subjective Subjective: Patient has no new symptoms. The vital signs remained stable. Had echocardiogram which revealed ejection fraction around 38%. Essentially unchanged from the previous echocardiogram. Severe diffuse hypokinesia of the LV apex. No intracardiac masses noted. Telemetry had atrial fibrillation flutter during the last hospital admission. He had Eliquis in the past but because of GI bleed, it was stopped. His atrial size is within normal limits Medications: Medication Review Details: Current Medications Acetaminophen (Acetaminophen 325 Mg Tablet) 650 mg PO Q6H PRN PRN Reason: Mild/Mod Pain Or Temp >/= 101 Amiodarone HCl (Amiodarone 200 Mg Tablet) 200 mg PO DAILY [facility] Last Admin: 01/08/25 08:24 Dose: 200 mg Aspirin (Aspirin 81 Mg Ec Tablet) 81 mg PO DAILY [facility] Last Admin: 01/08/25 08:25 Dose: 81 mg Atorvastatin Calcium (Atorvastatin 40 Mg Tablet) 40 mg PO BEDTIME [facility] Last Admin: 01/07/25 21:40 Dose: 40 mg Citalopram Hydrobromide (Citalopram 20 Mg Tablet) 10 mg PO DAILY [facility] Last Admin: 01/08/25 08:24 Dose: 10 mg Clopidogrel Bisulfate (Clopidogrel 75 Mg Tablet) 75 mg PO DAILY [facility] Last Admin: 01/08/25 08:25 Dose: 75 mg Fluticasone Propionate (Fluticasone Nasal [place] 16gm Btl) 1 spray INTRANASAL DAILY [facility] Last Admin: 01/08/25 08:38 Dose: 1 spray Furosemide (Furosemide 10 Mg/Ml Sdv 2ml) 20 mg IVP DAILY [facility] Last Admin: 01/08/25 08:25 Dose: 20 mg Guaifenesin/Dextromethorphan (Guaifenesin-Dextromethorphan Udc 10 Ml) 5 ml PO Q4H PRN PRN Reason: Cough Heparin Sodium (Porcine) (Heparin 5,000 Unit/Ml Inj 1 Ml) 0 unit IVP PRN PRN; Protocol PRN Reason: Heparin Weight Based Protocol -Subsequent Bolus Last Admin: 01/08/25 14:29 Dose: 3,300 unit Piperacillin Sod/Tazobactam (Sod 3.375 gm/ Sodium Chloride) 50 mls @ 12.5 mls/hr IV Q8H [facility]; Protocol Last Infusion: 01/08/25 15:12 Dose: Infused Linezolid (Zyvox Premix) 600 mg in 300 mls @ 300 mls/hr IV Q12H [facility]; Protocol Last Admin: 01/08/25 13:36 Dose: 300 mls/hr Dextrose (D5w) 1,000 mls @ 30 mls/hr IV .Q24H [facility] Last Admin: 01/07/25 13:22 Dose: 30 mls/hr Heparin Sodium/Sodium Chloride (Heparin Drip) 25,000 unit in 500 mls @ 0 mls/hr IV CONT SHWETA; Protocol Last Admin: 01/08/25 14:30 Dose: 14.29 unit/kg/hr, 23 mls/hr Lactulose (Lactulose Oral Liq 20 Gm/30 Ml Udc) 20 gm PO DAILY [facility] Last Admin: 01/08/25 08:22 Dose: 20 gm Levetiracetam (Levetiracetam 500 Mg Tablet) 1,000 mg PO BID [facility] Last Admin: 01/08/25 08:24 Dose: 1,000 mg Magnesium Hydroxide (Magnesium Hydroxide 30 Ml Udc) 30 ml PO DAILY PRN PRN Reason: Constipation Metoprolol Tartrate (Metoprolol Tartrate 25 Mg Tablet) 12.5 mg PO BID@0900,2100 [facility] Last Admin: 01/08/25 08:24 Dose: 12.5 mg Multivitamins Therapeutic (Multivitamin Therapeutic Tablet) 1 tab PO DAILY [facility] Last Admin: 01/08/25 08:25 Dose: 1 tab Non-Formulary Medication (Perampanel [Fycompa]) 6 mg PO QAM [facility] Ondansetron HCl (Ondansetron 2 Mg/Ml Sdv 2 Ml) 4 mg IVP Q8H PRN PRN Reason: vomiting, or N/V if npo Pantoprazole Sodium (Pantoprazole Dr 40 Mg Tablet) 40 mg PO BID [facility] Last Admin: 01/08/25 08:25 Dose: 40 mg Polyethylene Glycol (Polyethylene Glycol 3350 Pkt 17 Gm) 17 gm PO DAILY [facility] Last Admin: 01/08/25 08:22 Dose: 17 gm Senna (Sennosides 8.6 Mg Tablet) 8.6 mg PO DAILY [facility] Last Admin: 01/08/25 08:25 Dose: 8.6 mg Vitals/I&O/Wt Last Vital Signs Temp 97.6 F 01/08/25 12:00 Pulse 87 01/08/25 14:00 Resp 23 H 01/08/25 13:00 BP 136/90 01/08/25 13:00 Pulse Ox 95 01/08/25 13:00 O2 Del Method Room Air 01/08/25 12:00 01/08/25 01/08/25 01/08/25 06:59 14:59 22:59 Intake Total 1286.350 / 1876.350 483.65 / 483.65 50 / 533.65 Output Total 300 / 300 Balance 986.350 / 1576.350 483.65 / 483.65 50 / 533.65 Weight last 48 hrs Weight 170 lb 13.732 oz Weight 177 lb 7.554 oz Physical Exam Narrative: GENERAL: The patient is alert but nonverbal. Has spontaneous nonpurposeful movements of the upper extremities and head and neck region, orofacial dyskinesia HEENT: Minimal pallor, no icterus or lymphadenopathy.Oral cavity: There are no mucous membrane lesions. NECK: Trachea appears to be central. No masses noted. No JVD or thyromegaly appreciated. RESPIRATORY: Chest is symmetrical. No intercostals muscle retraction or any accessory muscle activation. There is no chest wall tenderness. Breath sounds are heard bilaterally. No rales or rhonchi heard. No evidence of any consolidation. BREASTS: Deferred. HEART: The heart sounds are normal. No S3 or S4. Short systolic murmur in the lateral border.. No pericardial rub ABDOMEN: No vessel pulsations or distention. No tenderness. No organomegaly appreciated. Bowel sounds are normally heard. : Deferred. RECTAL: Deferred. LYMPHATIC: No lymphadenopathy noted in the neck. EXTREMITIES: 1+ edema both lower extremities. No cyanosis. MUSCULOSKELETAL: No acute joint deformities or swelling SKIN: There are no significant rashes or ecchymosis NEUROPSYCHIATRIC: The patient is alert , nonverbal. Noted any distress. Urinary Catheter Management: Lamb Latex: Cath Placed During This Visit: yes Reason for Continuing Indwelling Catheter: Accurate Measurement of Urinary Output in Critically Ill Patients Urinary Catheter Date of Insertion: 01/07/25 Urinary Catheter Time of Insertion: 23:00 Data 01/09/25 04:57 01/09/25 04:57 Other Labs: Laboratory Last Values WBC 12.18 10^3/uL (3.29-11.43) H 01/09/25 04:57 RBC 3.23 10^6/uL (3.85-5.65) L 01/09/25 04:57 Hgb 8.60 g/dL (11.27-16.99) L 01/09/25 04:57 Hct 30.3 % (37-53) L 01/09/25 04:57 MCV 93.8 fl (82-101) 01/09/25 04:57 MCH 26.6 pg (27-33) L 01/09/25 04:57 MCHC 28.4 g/dL (30-55) L 01/09/25 04:57 RDW 21.0 % (12.1-15.1) H 01/09/25 04:57 Plt Count 255 10^3/cmm (157-399) 01/09/25 04:57 MPV 12.7 fL (7.4-10.4) H 01/09/25 04:57 Neut % (Auto) 78.9 % 01/09/25 04:57 Lymph % (Auto) 9.5 % 01/09/25 04:57 Ness % (Auto) 5.7 % 01/09/25 04:57 Eos % (Auto) 4.7 % 01/09/25 04:57 Baso % (Auto) 0.7 % 01/09/25 04:57 Neut # (Auto) 9.61 10^3/uL (1.8-7.7) H 01/09/25 04:57 Lymph # (Auto) 1.2 10^3/uL (0.8-4.8) 01/09/25 04:57 Ness # (Auto) 0.7 10^3/uL (0.2-0.9) 01/09/25 04:57 Eos # (Auto) 0.6 10^3/uL (0.0-0.8) 01/09/25 04:57 Baso # (Auto) 0.1 10^3/uL (0.0-0.1) 01/09/25 04:57 Nucleated RBC % (auto) 0 % 01/09/25 04:57 Nucleated RBCs # 0.0 /100WBC 01/09/25 04:57 APTT Cancelled 01/09/25 04:57 Sodium 147 mmol/L (136-145) H 01/09/25 04:57 Potassium 3.6 mmol/L (3.5-5.1) 01/09/25 04:57 Chloride 110 mmol/L (98-107) H 01/09/25 04:57 Carbon Dioxide 20 mmol/L (22-29) L 01/09/25 04:57 Anion Gap 20.6 (5-19) H 01/09/25 04:57 BUN 32 mg/dL (8-23) H 01/09/25 04:57 Creatinine 2.2 mg/dL (0.7-1.2) H 01/09/25 04:57 GFR Calculation 30.0 mL/min (90-130) L 01/09/25 04:57 Glucose 118 mg/dL (65-115) H 01/09/25 04:57 Calculated Osmolality 312 mOsm/kg (285-295) H 01/09/25 04:57 Calcium 8.3 mg/dL (8.5-10.5) L 01/09/25 04:57 Total Bilirubin 0.3 mg/dL (0.15-1.2) 01/09/25 04:57 AST 16 U/L (0-40) 01/09/25 04:57 ALT 43 U/L (0-41) H 01/09/25 04:57 Alkaline Phosphatase 84 U/L (40-130) 01/09/25 04:57 Troponin T Baseline 1164 ng/L (0-15) H* 01/07/25 07:42 Troponin T 120 Minute 1183 ng/L (0-15) H 01/07/25 09:42 Delta Troponin T 19 ABS# (0-10) H* 01/07/25 09:42 Troponin T Hi Sens 6Hr 1223 ng/L (0-15) H 01/07/25 14:30 Troponin T Hi Sens 6Hr Delta 59 ng/L (0-12) H* 01/07/25 14:30 Total Protein 6.9 g/dL (6.6-8.7) 01/09/25 04:57 Albumin 2.9 g/dL (3.5-5.2) L 01/09/25 04:57 Globulin 4.0 g/dL (1.3-4.6) 01/09/25 04:57 Nasal MRSA (PCR) Mrsa detected (Negative) A 01/07/25 16:17 Coronavirus (PCR) Negative (Negative) 01/07/25 05:10 Influenza A (PCR) Negative (Negative) 01/07/25 05:10 Influenza Type B (PCR) Negative (Negative) 01/07/25 05:10 RSV (PCR) Negative (Negative) 01/07/25 05:10 Micro: Microbiology 01/07/25 23:45 Bacterial Antigens - Final Urine,Voided 01/07/25 23:45 Legionella Urinary Antigen - Final Urine Catheterized A&P Assessment and plan (1) Elevated troponin I level: Patient's elevated troponin T, could be from the recent AR. He is troponin T was greater than 10,000 on the of last month. The positive delta, could be related to type II AR. The LV ejection fraction appears to remained stable or slightly improved compared to the previous echocardiogram. At this point, patient may not require any specific intervention. In view of his a high bleeding risk may continue on the current antiplatelet drugs (2) Recent ST elevation myocardial infarction (STEMI): Persistent ST elevation in view of the extensive myocardial injury from the previous AR. May continue on the current medication for the time being. May discontinue the therapeutic Lovenox after 48 hours. Then he may be started on the DVT prophylaxis dose (3) Ischemic cardiomyopathy: May start the patient on afterload reducing agents-hydralazine and nitrates, if the blood pressure tolerates. (4) Iron deficiency anemia: May continue on the current management. Qualifiers: Iron deficiency anemia type: other iron deficiency Qualified Code(s): D50.8 - Other iron deficiency anemias Plan Other problems are Possible pneumonia Chronic kidney disease Chronic anemia Thrombocytopenia, resolved Developmental delay/cerebral palsy Seizure disorder The patient may be kept on subcu Lovenox and other current medications for the time being Need to discuss about long-term oral anticoagulation Also will discuss about the LifeVest in view of the low LV systolic function Based on the clinical progress, further recommendations will be made Thank you for the opportunity to eval this patient and make these recommendations PDMP PDMP Reviewed: Not Reviewed Attestations Medical Necessity Statement*: Patient requires continued hospital stay for close monitoring and further management Coding Level of Care Code 16583 Diagnoses Elevated troponin I level R79.[address] elevation myocardial infarction (STEMI) Ischemic cardiomyopathy I25.5 Other iron deficiency anemia D50.8 Iron deficiency anemia type: other iron deficiency
--- NOTE | 2025-01-08 17:11 | P.PN_ITS ---
Subjective 2 Subjective: He is nonverbal. Awake and alert. Looking around. Does not appear in acute distress. Vitals/I&O/Wt Last Vital Signs Temp 97.8 F 01/08/25 16:00 Pulse 79 01/08/25 17:00 Resp 27 H 01/08/25 17:00 BP 124/82 01/08/25 17:00 Pulse Ox 97 01/08/25 17:00 O2 Del Method Room Air 01/08/25 16:00 01/08/25 01/08/25 01/08/25 06:59 14:59 22:59 Intake Total 1286.350 / 1876.350 483.65 / 483.65 50 / 533.65 Output Total 300 / 300 Balance 986.350 / 1576.350 483.65 / 483.65 50 / 533.65 Weight last 48 hrs Weight 77.5 kg Weight 80.5 kg Physical Exam 2 Const: COMMON NORMALS: negative for alert GENERAL APPEARANCE: not cooperative ORIENTATION/CONSCIOUSNESS: not awake HENMT: COMMON NORMALS: oropharynx normal Neck/C-Spine: COMMON NORMALS: no JVD Resp: AUSCULTATION: rhonchi Cardio: COMMON NORMALS: no JVD, regular rhythm, S1 normal heart sound present, S2 normal heart sound present and No murmurs present (Cardio) RHYTHM: regular rhythm HEART SOUNDS: S1 normal heart sound present and S2 normal heart sound present GI: COMMON NORMALS: Normal to inspection, nondistended, normoactive bowel sounds present, Soft to palpation and non-tender PALPATION: Yes Soft to palpation Extremity: COMMON NORMALS: no joint enlargement and no pedal edema Neuro: SENSORIUM/ORIENTATION: No alert Skin: COMMON NORMALS: no rashes or lesions noted GENERAL SKIN EXAM: no rashes or lesions noted Urinary Catheter Management: Lamb Latex: Cath Placed During This Visit: yes Reason for Continuing Indwelling Catheter: Accurate Measurement of Urinary Output in Critically Ill Patients Urinary Catheter Date of Insertion: 01/07/25 Urinary Catheter Time of Insertion: 23:00 Data 01/08/25 08:42 01/08/25 08:42 Micro: Microbiology 01/07/25 23:45 Bacterial Antigens - Final Urine,Voided 01/07/25 23:45 Legionella Urinary Antigen - Final Urine Catheterized A&P Assessment and plan (1) Pneumonia: Reviewed vitals, CBC, CMP, he is afebrile, with improvement in oxygenation, down to room air. Transiently required oxygen. With persistent leukocytosis, 13.8. Faint infiltrate noted in left lower lung. Saturation noted low at the half-way, although overall saturating okay in the ER, up to 95% on room air. He is having productive cough, and is noted to have rhonchi on exam. At risk of aspiration and aspiration pneumonia. Continue Zosyn. Monitor for risk of cytopenia, Rosas-Dale syndrome, C. difficile. Unlikely that he will be able to provide a sputum culture. Will obtain urine bacterial antigens, urine Legionella antigen. With recent hospitalization, obtain MRSA PCR. For now we will provide coverage with linezolid for possible hospital-acquired pneumonia. Monitor for risk of cytopenia. Discussed he is at risk of recurrent aspiration, recurrent aspiration pneumonia. (2) Troponin level elevated: Discussed with cardiology. Pending echocardiogram. Follow-up results. Discussed with smelter charger, additional assessment requested with stress test for tomorrow. Continues on anticoagulation for now with heparin drip. Monitor for risk of bleeding. Monitor PTT. Monitor telemetry with risk of arrhythmia. Cardiogenic shock after recent STEMI, with PCI to LAD, 3 times NICOLÁS, as well as balloon angioplasty of diagonal, PCI to RCA. Last hospitalization troponin up as high as 4600 at baseline, although 6-hour troponin looks like was over 10,000. Currently troponin still elevated at 1160, renal function appears to be similar or slightly better to his baseline. Does appear may be gradual decrease in troponin since last time with diminished renal function. However, at the same time unable to obtain his symptoms from him. Difficult to state whether troponin is still gradually declining after his STEMI previously, versus whether there is a secondary rise again. Will complete troponin EKG series. Monitor on telemetry with risk of arrhythmia. Obtain follow-up limited TTE. Appreciate cardiology consultation. Continue aspirin, Plavix, beta-dawson, statin. (3) Hypernatremia: Hyponatremia with transient improvement, sodium down to 149, but again elevated 151. Continue D5 infusion. Recheck sodium level. Will give gentle hydration with D5. Follow-up sodium level. Monitor for risk of hyponatremia, fluid overload. Plan Acute systolic congestive heart failure exacerbation: Mild exacerbation of CHF, with hypoxia part of the half-way, mild cardiac compensation noted on chest x- ray. Only minimal edema peripherally. Continue Lasix to IV 20 mg daily for now. Monitor intake and output. Monitor for risk of electrolyte deficiency. Reassess chemistry. Dysphagia: Maintain aspiration precautions. He is on pur?ed diet with extremely thickened liquids. Discussed condition, assessment and plans with his guardian. Per history obtained from the guardian seems that atorvastatin dose may have been missed, but as per discussion should not contribute to some of the dehydration and hypernatremia he is having. PDMP PDMP Reviewed: Not Reviewed Attestations 2 Medical Necessity Statement*: Continue admission for assessment and management of pneumonia, dehydration, hypernatremia, troponin elevation after recent STEMI in gentleman with underlying CKD after recent multiorgan failure after cardiogenic shock, cardiomyopathy with low ejection fraction. and High MDM includes amount and/or complexity of data reviewed/ordered [ resulted lab(s)/test(s), ordered lab(s)/test(s) and other healthcare professional discussion] and described risk of complication, morbidity or mortality of management as documented Diagnoses Pneumonia J18.9 Troponin level elevated R79.89 Hypernatremia E87.0
[2025-01-08 20:31] LABS: Partial Thromboplastin Time 35.5 SECONDS (23.9-36.7)
[2025-01-08] MEDS: atorvastatin 40 mg Tablet PO (21:02)
[2025-01-08] MEDS: dextrose 5% 1,000 ML 30 ML IV (21:02)
[2025-01-09] VITALS (23 sets, daily range): BP systolic 85–120; BP diastolic 53–90; PULSE 75–93; RESP 5–34; TEMP 36.2–37.4; O2SAT 91–100
[2025-01-09] MEDS: linezolid premix 600 MG/300 ML PREMIX 300 MG IV ×2 (00:39→13:00)
[2025-01-09] MEDS: piperacillin-tazobactam 3.375 GM in sodium chloride 0.9% (plus) 50 ML IV ×3 (03:55→21:44)
[2025-01-09 05:38] LABS: Basophils # 0.1 10^3/uL (0.0-0.1); Basophils % 0.7 %; Eosinophils # 0.6 10^3/uL (0.0-0.8); Eosinophils % 4.7 %; Hematocrit 30.3 % (37-53); Lymphocytes # 1.2 10^3/uL (0.8-4.8); Lymphocytes % 9.5 %; Mean Corpuscular HGB Conc 28.4 g/dL (30-55); Mean Corpuscular Hemoglobin 26.6 pg (27-33); Mean Corpuscular Volume 93.8 fl (82-101); Mean Platelet Volume 12.7 fL (7.4-10.4); Monocytes # 0.7 10^3/uL (0.2-0.9); Monocytes % 5.7 %; Neutrophils # 9.61 10^3/uL (1.8-7.7); Neutrophils % 78.9 %; Nucleated Red Blood Cells % 0 %; Platelet Count 255 10^3/cmm (157-399); Red Blood Count 3.23 10^6/uL (3.85-5.65); White Blood Count 12.18 10^3/uL (3.29-11.43)
[2025-01-09 05:56] LABS: Alanine Aminotransferase 43 U/L (0-41); Albumin Level 2.9 g/dL (3.5-5.2); Alkaline Phosphatase 84 U/L (40-130); Anion Gap 20.6 (5-19); Aspartate Amino Transferase 16 U/L (0-40); Blood Urea Nitrogen 32 mg/dL (8-23); Calcium 8.3 mg/dL (8.5-10.5); Carbon Dioxide 20 mmol/L (22-29); Chloride 110 mmol/L (98-107); Creatinine Clr Calc Pharmacy 35.1082; Glucose 118 mg/dL (65-115); Osmolality Calculated 312 mOsm/kg (285-295); Potassium 3.6 mmol/L (3.5-5.1); Sodium 147 mmol/L (136-145); Total Bilirubin 0.3 mg/dL (0.15-1.2); Total Protein 6.9 g/dL (6.6-8.7)
--- NOTE | 2025-01-09 06:39 | PM.PN ---
Subjective Subjective: No new symptoms. Vitals remaining stable. Medications: Medication Review Details: Current Medications Acetaminophen (Acetaminophen 325 Mg Tablet) 650 mg PO Q6H PRN PRN Reason: Mild/Mod Pain Or Temp >/= 101 Amiodarone HCl (Amiodarone 200 Mg Tablet) 200 mg PO DAILY FOR[facility]LY [facility], [facility] Last Admin: 01/08/25 08:24 Dose: 200 mg Aspirin (Aspirin 81 Mg Ec Tablet) 81 mg PO DAILY SHWETA Last Admin: 01/08/25 08:25 Dose: 81 mg Atorvastatin Calcium (Atorvastatin 40 Mg Tablet) 40 mg PO BEDTIME [facility], [facility]1983 Last Admin: 01/08/25 21:02 Dose: 40 mg Citalopram Hydrobromide (Citalopram 20 Mg Tablet) 10 mg PO DAILY [facility], [facility] Last Admin: 01/08/25 08:24 Dose: 10 mg Clopidogrel Bisulfate (Clopidogrel 75 Mg Tablet) 75 mg PO DAILY [facility], [facility] Last Admin: 01/08/25 08:25 Dose: 75 mg Fluticasone Propionate (Fluticasone Nasal [place] 16gm Btl) 1 spray INTRANASAL DAILY [facility], [facility]1983 Last Admin: 01/08/25 08:38 Dose: 1 spray Furosemide (Furosemide 10 Mg/Ml Sdv 2ml) 20 mg IVP DAILY [facility], [facility]1983 Last Admin: 01/08/25 08:25 Dose: 20 mg Guaifenesin/Dextromethorphan (Guaifenesin-Dextromethorphan Udc 10 Ml) 5 ml PO Q4H PRN PRN Reason: Cough Heparin Sodium (Porcine) (Heparin 5,000 Unit/Ml Inj 1 Ml) 0 unit IVP PRN PRN; Protocol PRN Reason: Heparin Weight Based Protocol -Subsequent Bolus Last Admin: 01/08/25 22:37 Dose: 3,200 unit Piperacillin Sod/Tazobactam (Sod 3.375 gm/ Sodium Chloride) 50 mls @ 12.5 mls/hr IV Q8H [facility], [facility]; Protocol Last Admin: 01/09/25 03:55 Dose: 12.5 mls/hr Linezolid (Zyvox Premix) 600 mg in 300 mls @ 300 mls/hr IV Q12H [facility]; Protocol Last Infusion: 01/09/25 05:02 Dose: Infused Dextrose (D5w) 1,000 mls @ 30 mls/hr IV .Q24H SHWETA Last Admin: 02/12/25 21:02 Dose: 30 mls/hr Heparin Sodium/Sodium Chloride (Heparin Drip) 25,000 unit in 500 mls @ 0 mls/hr IV CONT SHWETA; Protocol Last Titration: 01/08/25 22:37 Dose: 16.15 unit/kg/hr, 26 mls/hr Lactulose (Lactulose Oral Liq 20 Gm/30 Ml Udc) 20 gm PO DAILY [facility] Last Admin: 01/08/25 08:22 Dose: 20 gm Levetiracetam (Levetiracetam 500 Mg Tablet) 1,000 mg PO BID [facility] Last Admin: 01/08/25 17:51 Dose: 1,000 mg Magnesium Hydroxide (Magnesium Hydroxide 30 Ml Udc) 30 ml PO DAILY PRN PRN Reason: Constipation Metoprolol Tartrate (Metoprolol Tartrate 25 Mg Tablet) 12.5 mg PO BID@0900,2100 [facility] Last Admin: 01/08/25 21:41 Dose: 12.5 mg Multivitamins Therapeutic (Multivitamin Therapeutic Tablet) 1 tab PO DAILY [facility] Last Admin: 01/08/25 08:25 Dose: 1 tab Non-Formulary Medication (Perampanel [Fycompa]) 6 mg PO QAM [facility] Ondansetron HCl (Ondansetron 2 Mg/Ml Sdv 2 Ml) 4 mg IVP Q8H PRN PRN Reason: vomiting, or N/V if npo Pantoprazole Sodium (Pantoprazole Dr 40 Mg Tablet) 40 mg PO BID [facility] Last Admin: 01/08/25 17:51 Dose: 40 mg Polyethylene Glycol (Polyethylene Glycol 3350 Pkt 17 Gm) 17 gm PO DAILY [facility] Last Admin: 01/08/25 08:22 Dose: 17 gm Senna (Sennosides 8.6 Mg Tablet) 8.6 mg PO DAILY [facility] Last Admin: 01/08/25 08:25 Dose: 8.6 mg Vitals/I&O/Wt Last Vital Signs Temp 98.1 F 01/09/25 00:00 Pulse 83 01/09/25 00:00 Resp 29 H 01/09/25 00:00 BP 117/90 01/09/25 00:00 Pulse Ox 98 01/09/25 00:00 O2 Del Method Room Air 01/08/25 16:00 02/12/25 02/12/25 02/13/25 14:59 22:59 06:59 Intake Total 783.65 / 783.65 2036.683 / 2820.333 350 / 3170.333 Output Total 800 / 800 Balance 783.65 / 783.65 1236.683 / 2020.333 350 / 2370.333 Weight last 48 hrs Weight 170 lb 13.732 oz Weight 177 lb 7.554 oz Physical Exam Narrative: GENERAL: The patient is alert but nonverbal. Has spontaneous nonpurposeful movements of the upper extremities and head and neck region, orofacial dyskinesia HEENT: Minimal pallor, no icterus or lymphadenopathy.Oral cavity: There are no mucous membrane lesions. NECK: Trachea appears to be central. No masses noted. No JVD or thyromegaly appreciated. RESPIRATORY: Chest is symmetrical. No intercostals muscle retraction or any accessory muscle activation. There is no chest wall tenderness. Breath sounds are heard bilaterally. No rales or rhonchi heard. No evidence of any consolidation. BREASTS: Deferred. HEART: The heart sounds are normal. No S3 or S4. Short systolic murmur in the lateral border.. No pericardial rub ABDOMEN: No vessel pulsations or distention. No tenderness. No organomegaly appreciated. Bowel sounds are normally heard. : Deferred. RECTAL: Deferred. LYMPHATIC: No lymphadenopathy noted in the neck. EXTREMITIES: 1+ edema both lower extremities. No cyanosis. MUSCULOSKELETAL: No acute joint deformities or swelling SKIN: There are no significant rashes or ecchymosis NEUROPSYCHIATRIC: The patient is alert , nonverbal. Flexion deformities of the lower extremity. Has some orofacial dyskinesia Urinary Catheter Management: Lamb Latex: Cath Placed During This Visit: yes Reason for Continuing Indwelling Catheter: Accurate Measurement of Urinary Output in Critically Ill Patients Urinary Catheter Date of Insertion: 01/07/25 Urinary Catheter Time of Insertion: 23:00 Data 01/09/25 04:57 01/09/25 04:57 Micro: Microbiology 01/07/25 23:45 Bacterial Antigens - Final Urine,Voided A&P Assessment and plan (1) Elevated troponin I level: Patient's elevated troponin T, could be from the recent CO. He is troponin T was greater than 10,000 on the 19th of last month. The positive delta, could be related to type II CO. The LV ejection fraction appears to remained stable or slightly improved compared to the previous echocardiogram. At this point, patient may not require any specific intervention. In view of his a high bleeding risk may continue on the current antiplatelet drugs (2) Recent ST elevation myocardial infarction (STEMI): Persistent ST elevation in view of the extensive myocardial injury from the previous CO. May continue on the current medication for the time being. Patient has a difficult IV. It was decided to discontinue the IV heparin. Start the patient on subcu Lovenox, for DVT prophylaxis (3) Ischemic cardiomyopathy: May start the patient on hydralazine 10 mg p.o. 3 times daily and Isordil 5 mg p.o. twice daily The blood pressure needs to be closely monitored (4) Iron deficiency anemia: May continue on the current management. Qualifiers: Iron deficiency anemia type: other iron deficiency Qualified Code(s): D50.8 - Other iron deficiency anemias Plan Other problems are Possible pneumonia Chronic kidney disease Chronic anemia Thrombocytopenia, resolved Developmental delay/cerebral palsy Seizure disorder Lovenox for DVT prophylaxis mentioned above Hydralazine and isosorbide as mentioned above Close monitoring PDMP PDMP Reviewed: Not Reviewed Attestations Medical Necessity Statement*: Disposition as per the primary Coding Level of Care Code 01385 Diagnoses Elevated troponin I level R79.[address] elevation myocardial infarction (STEMI) Ischemic cardiomyopathy I25.5 Other iron deficiency anemia D50.8 Iron deficiency anemia type: other iron deficiency
--- NOTE | 2025-01-09 09:52 | P.PN_ITS ---
Subjective 2 Subjective: Nonverbal. Awake Vitals/I&O/Wt Last Vital Signs Temp 98.2 F 01/09/25 04:00 Pulse 75 01/09/25 07:00 Resp 15 01/09/25 07:00 BP 112/69 01/09/25 06:00 Pulse Ox 92 01/09/25 07:00 O2 Del Method Room Air 01/08/25 16:00 01/08/25 01/09/25 01/09/25 22:59 06:59 14:59 Intake Total 2036.683 / 2820.333 350 / 3170.333 Output Total 800 / 800 550 / 1350 Balance 1236.683 / 2020.333 -200 / 1820.333 Weight last 48 hrs Weight 77.111 kg Weight 77.5 kg Weight 80.5 kg Physical Exam 2 Const: COMMON NORMALS: alert GENERAL APPEARANCE: not cooperative O RIENTATION/CONSCIOUSNESS: Yes awake OTHER: Noncommunicative HENMT: COMMON NORMALS: oropharynx normal Neck/C-Spine: COMMON NORMALS: no JVD Resp: COMMON NORMALS: clear to auscultation bilaterally AUSCULTATION: clear to auscultation bilaterally Cardio: COMMON NORMALS: no JVD, regular rhythm, S1 normal heart sound present, S2 normal heart sound present and No murmurs present (Cardio) RHYTHM: regular rhythm HEART SOUNDS: S1 normal heart sound present and S2 normal heart sound present GI: COMMON NORMALS: Normal to inspection, nondistended, normoactive bowel sounds present, Soft to palpation and non-tender PALPATION: Yes Soft to palpation Extremity: COMMON NORMALS: no joint enlargement and no pedal edema Neuro: SENSORIUM/ORIENTATION: Yes alert Skin: COMMON NORMALS: no rashes or lesions noted GENERAL SKIN EXAM: no rashes or lesions noted Urinary Catheter Management: Lamb Latex: Cath Placed During This Visit: yes Reason for Continuing Indwelling Catheter: Accurate Measurement of Urinary Output in Critically Ill Patients Urinary Catheter Date of Insertion: 01/07/25 Urinary Catheter Time of Insertion: 23:00 Data 01/09/25 04:57 01/09/25 04:57 Micro: Microbiology 01/07/25 23:45 Bacterial Antigens - Final Urine,Voided A&P Assessment and plan (1) Pneumonia: Continue oxygenation on room air currently. Mild improvement in leukocytosis on review of CBC, WBC down to 12. Reviewed CMP. Reviewed urine bacterial antigen, Legionella antigen, negative he is afebrile, with improvement in oxygenation, down to room air. Transiently required oxygen. Faint infiltrate noted in left lower lung. Saturation noted low at the long-term, although overall saturating okay in the ER, up to 95% on room air. He is having productive cough, and is noted to have rhonchi on exam. At risk of aspiration and aspiration pneumonia. Continue Zosyn. Monitor for risk of cytopenia, Rosas-Dale syndrome, C. difficile. Unlikely that he will be able to provide a sputum culture. Will obtain urine bacterial antigens, urine Legionella antigen. Recent hospitalization. MRSA obtained, PCR reviewed, positive. Coverage with linezolid for possible hospital-acquired pneumonia. Monitor for risk of cytopenia. Discussed he is at risk of recurrent aspiration, recurrent aspiration pneumonia. (2) Troponin level elevated: Heparin drip on hold this morning. As per cardiology okay to stop heparin. His transition to Lovenox prophylaxis. Discussed with field technical assistant Did not undergo stress test today, test canceled. Discussed with nursing, rn field case manager. Discussed with cardiology. Pending echocardiogram. Follow-up results. Discussed with field technical assistant, additional assessment requested with stress test for tomorrow. Continues on anticoagulation for now with heparin drip. Monitor for risk of bleeding. Monitor PTT. Monitor telemetry with risk of arrhythmia. He is in ICU as overflow from CSU. Cardiogenic shock after recent STEMI, with PCI to LAD, 3 times NICOLÁS, as well as balloon angioplasty of diagonal, PCI to RCA. Last hospitalization troponin up as high as 4600 at baseline, although 6-hour troponin looks like was over 10,000. Currently troponin still elevated at 1160, renal function appears to be similar or slightly better to his baseline. Does appear may be gradual decrease in troponin since last time with diminished renal function. However, at the same time unable to obtain his symptoms from him. Difficult to state whether troponin is still gradually declining after his STEMI previously, versus whether there is a secondary rise again. Will complete troponin EKG series. Monitor on telemetry with risk of arrhythmia. Obtain follow-up limited TTE. Appreciate cardiology consultation. Continue aspirin, Plavix, beta-dawson, statin. (3) Hypernatremia: Na improved to 147. Cont low rate d5w for now. Monitor for risk of fluid overload. Reviewed intake and output, he is in positive balance. So far without signs of overload. Recheck sodium. Oral intake as tolerating. Hyponatremia with transient improvement, sodium down to 149, but again elevated 151. Plan Acute systolic congestive heart failure exacerbation: Mild exacerbation of CHF, maintaining oxygenation, without lower extremity edema. I do not appreciate JVD. For now continue 20 mg IV Lasix daily. Monitor intake and output, monitor chemistry with risk of electrolyte deficiency, renal dysfunction. Dysphagia: Maintain aspiration precautions. He is on pur?ed diet with extremely thickened liquids. Discussed condition, assessment and plans with his guardian. Per history obtained from the guardian seems that atorvastatin dose may have been missed, but as per discussion should not contribute to some of the dehydration and hypernatremia he is having. PDMP PDMP Reviewed: Not Reviewed Attestations 2 Medical Necessity Statement*: Continue admission for assessment and management of pneumonia, dehydration, hypernatremia, troponin elevation after recent STEMI in gentleman with underlying CKD after recent multiorgan failure after cardiogenic shock, cardiomyopathy with low ejection fraction. and High MDM includes amount and/or complexity of data reviewed/ordered [ previous or external records, resulted lab(s)/test(s), ordered lab(s)/test(s) and other healthcare professional discussion] and described risk of complication, morbidity or mortality of management as documented Diagnoses Pneumonia J18.9 Troponin level elevated R79.89 Hypernatremia E87.0
[2025-01-09] MEDS: polyethylene glycol 3350 Pkt 17 gm PO (09:55)
[2025-01-09] MEDS: enoxaparin 40 mg/0.4 mL Syringe SUBCUT (09:55)
[2025-01-09] MEDS: lactulose oral liq 20 gm/30 mL UDC PO (09:55)
[2025-01-09] MEDS: FUROsemide 10 mg/mL SDV 2mL 20 MG IVP (09:55)
[2025-01-09] MEDS: citalopram 20 mg Tablet 10 MG PO (09:55)
[2025-01-09] MEDS: sennosides 8.6 mg Tablet PO (09:56)
[2025-01-09] MEDS: clopidogrel 75 mg Tablet PO (09:56)
[2025-01-09] MEDS: fluticasone nasal spray 16gm Btl 1 SPRAY INTRANASAL (09:56)
[2025-01-09] MEDS: levETIRAcetam 500 mg Tablet 1000 MG PO ×2 (09:56→17:54)
[2025-01-09] MEDS: pantoprazole DR 40 mg Tablet PO ×2 (09:57→17:55)
[2025-01-09] MEDS: aspirin 81 mg EC Tablet PO (09:57)
[2025-01-09] MEDS: multivitamin therapeutic Tablet 1 TAB PO (09:57)
[2025-01-09] MEDS: metoprolol tartrate 25 mg Tablet 12.5 MG PO ×2 (09:57→21:45)
[2025-01-09] MEDS: amiodarone 200 mg Tablet PO (09:57)
[2025-01-09] MEDS: hyDRALAzine 10 mg Tablet PO (21:45)
[2025-01-09] MEDS: isosorbide dinitrate 20 mg Tablet 5 MG PO (21:45)
[2025-01-09] MEDS: atorvastatin 40 mg Tablet PO (21:45)
[2025-01-10] VITALS (19 sets, daily range): BP systolic 93–120; BP diastolic 62–78; PULSE 74–86; RESP 11–30; TEMP 36.2–37.4; O2SAT 88–100; BMI 24.0
[2025-01-10] MEDS: linezolid premix 600 MG/300 ML PREMIX 300 MG IV (01:01)
[2025-01-10] MEDS: piperacillin-tazobactam 3.375 GM in sodium chloride 0.9% (plus) 50 ML IV (04:09)
--- NOTE | 2025-01-10 06:22 | PC.NURSE ---
Lab unable to obtain morning labs due to pt being a hard stick. Dr. Snyder notified.
--- NOTE | 2025-01-10 08:16 | PM.PN ---
Subjective Subjective: Patient has no new symptoms. Vital signs remained stable Medications: Medication Review Details: Current Medications Acetaminophen (Acetaminophen 325 Mg Tablet) 650 mg PO Q6H PRN PRN Reason: Mild/Mod Pain Or Temp >/= 101 Amiodarone HCl (Amiodarone 200 Mg Tablet) 200 mg PO DAILY [facility] Last Admin: 01/09/25 09:57 Dose: 200 mg Aspirin (Aspirin 81 Mg Ec Tablet) 81 mg PO DAILY [facility] Last Admin: 01/09/25 09:57 Dose: 81 mg Atorvastatin Calcium (Atorvastatin 40 Mg Tablet) 40 mg PO BEDTIME [facility] Last Admin: 01/09/25 21:45 Dose: 40 mg Citalopram Hydrobromide (Citalopram 20 Mg Tablet) 10 mg PO DAILY [facility] Last Admin: 01/09/25 09:55 Dose: 10 mg Clopidogrel Bisulfate (Clopidogrel 75 Mg Tablet) 75 mg PO DAILY [facility] Last Admin: 01/09/25 09:56 Dose: 75 mg Enoxaparin Sodium (Enoxaparin 40 Mg/0.4 Ml Syringe) 40 mg SUBCUT Q24H [facility] Last Admin: 01/09/25 09:55 Dose: 40 mg Fluticasone Propionate (Fluticasone Nasal [place] 16gm Btl) 1 spray INTRANASAL DAILY [facility] Last Admin: 01/09/25 09:56 Dose: 1 spray Furosemide (Furosemide 10 Mg/Ml Sdv 2ml) 20 mg IVP DAILY [facility] Last Admin: 01/09/25 09:55 Dose: 20 mg Guaifenesin/Dextromethorphan (Guaifenesin-Dextromethorphan Udc 10 Ml) 5 ml PO Q4H PRN PRN Reason: Cough Hydralazine HCl (Hydralazine 10 Mg Tablet) 10 mg PO TID [facility] Last Admin: 01/09/25 21:45 Dose: 10 mg Piperacillin Sod/Tazobactam (Sod 3.375 gm/ Sodium Chloride) 50 mls @ 12.5 mls/hr IV Q8H [facility]; Protocol Last Admin: 01/10/25 04:09 Dose: 12.5 mls/hr Linezolid (Zyvox Premix) 600 mg in 300 mls @ 300 mls/hr IV Q12H [facility]; Protocol Last Infusion: 01/10/25 02:15 Dose: Infused Dextrose (D5w) 1,000 mls @ 30 mls/hr IV .Q24H [facility] Last Admin: 01/08/25 21:02 Dose: 30 mls/hr Isosorbide Dinitrate (Isosorbide Dinitrate 20 Mg Tablet) 5 mg PO TID [facility] Last Admin: 01/09/25 21:45 Dose: 5 mg Lactulose (Lactulose Oral Liq 20 Gm/30 Ml Udc) 20 gm PO DAILY [facility] Last Admin: 01/09/25 09:55 Dose: 20 gm Levetiracetam (Levetiracetam 500 Mg Tablet) 1,000 mg PO BID [facility] Last Admin: 01/09/25 17:54 Dose: 1,000 mg Magnesium Hydroxide (Magnesium Hydroxide 30 Ml Udc) 30 ml PO DAILY PRN PRN Reason: Constipation Metoprolol Tartrate (Metoprolol Tartrate 25 Mg Tablet) 12.5 mg PO BID@0900,2100 [facility] Last Admin: 01/09/25 21:45 Dose: 12.5 mg Multivitamins Therapeutic (Multivitamin Therapeutic Tablet) 1 tab PO DAILY [facility] Last Admin: 01/09/25 09:57 Dose: 1 tab Non-Formulary Medication (Perampanel [Fycompa]) 6 mg PO QAM [facility] Ondansetron HCl (Ondansetron 2 Mg/Ml Sdv 2 Ml) 4 mg IVP Q8H PRN PRN Reason: vomiting, or N/V if npo Pantoprazole Sodium (Pantoprazole Dr 40 Mg Tablet) 40 mg PO BID [facility] Last Admin: 01/09/25 17:55 Dose: 40 mg Polyethylene Glycol (Polyethylene Glycol 3350 Pkt 17 Gm) 17 gm PO DAILY [facility] Last Admin: 01/09/25 09:55 Dose: 17 gm Senna (Sennosides 8.6 Mg Tablet) 8.6 mg PO DAILY [facility] Last Admin: 01/09/25 09:56 Dose: 8.6 mg Vitals/I&O/Wt Last Vital Signs Temp 97.5 F L 01/10/25 04:00 Pulse 83 01/10/25 06:00 Resp 19 H 01/10/25 06:00 BP 93/66 01/10/25 06:00 Pulse Ox 99 01/10/25 06:00 O2 Del Method Room Air 01/10/25 06:00 01/09/25 01/10/25 01/10/25 22:59 06:59 14:59 Intake Total 250 / 950 350 / 1300 Output Total 700 / 700 475 / 1175 Balance -450 / 250 -125 / 125 Weight last 48 hrs Weight 171 lb 15.369 oz Weight 170 lb Physical Exam Narrative: GENERAL: The patient is alert but nonverbal. Has spontaneous nonpurposeful movements of the upper extremities and head and neck region, orofacial dyskinesia HEENT: Minimal pallor, no icterus or lymphadenopathy.Oral cavity: There are no mucous membrane lesions. NECK: Trachea appears to be central. No masses noted. No JVD or thyromegaly appreciated. RESPIRATORY: Chest is symmetrical. No intercostals muscle retraction or any accessory muscle activation. There is no chest wall tenderness. Breath sounds are heard bilaterally. No rales or rhonchi heard. No evidence of any consolidation. BREASTS: Deferred. HEART: The heart sounds are normal. No S3 or S4. Short systolic murmur in the lateral border.. No pericardial rub ABDOMEN: No vessel pulsations or distention. No tenderness. No organomegaly appreciated. Bowel sounds are normally heard. : Deferred. RECTAL: Deferred. LYMPHATIC: No lymphadenopathy noted in the neck. EXTREMITIES: 1+ edema both lower extremities. No cyanosis. MUSCULOSKELETAL: No acute joint deformities or swelling SKIN: There are no significant rashes or ecchymosis NEUROPSYCHIATRIC: The patient is alert , nonverbal. Flexion deformities of the lower extremity. Has some orofacial dyskinesia Urinary Catheter Management: Lamb Latex: Cath Placed During This Visit: yes Reason for Continuing Indwelling Catheter: Accurate Measurement of Urinary Output in Critically Ill Patients Urinary Catheter Date of Insertion: 01/07/25 Urinary Catheter Time of Insertion: 23:00 Data 01/09/25 04:57 01/09/25 04:57 Other Labs: Laboratory Last Values WBC 12.18 10^3/uL (3.29-11.43) H 01/09/25 04:57 RBC 3.23 10^6/uL (3.85-5.65) L 01/09/25 04:57 Hgb 8.60 g/dL (11.27-16.99) L 01/09/25 04:57 Hct 30.3 % (37-53) L 01/09/25 04:57 MCV 93.8 fl (82-101) 01/09/25 04:57 MCH 26.6 pg (27-33) L 01/09/25 04:57 MCHC 28.4 g/dL (30-55) L 01/09/25 04:57 RDW 21.0 % (12.1-15.1) H 01/09/25 04:57 Plt Count 255 10^3/cmm (157-399) 01/09/25 04:57 MPV 12.7 fL (7.4-10.4) H 01/09/25 04:57 Neut % (Auto) 78.9 % 01/09/25 04:57 Lymph % (Auto) 9.5 % 01/09/25 04:57 [place] % (Auto) 5.7 % 01/09/25 04:57 Eos % (Auto) 4.7 % 01/09/25 04:57 Baso % (Auto) 0.7 % 01/09/25 04:57 Neut # (Auto) 9.61 10^3/uL (1.8-7.7) H 01/09/25 04:57 Lymph # (Auto) 1.2 10^3/uL (0.8-4.8) 01/09/25 04:57 [place] # (Auto) 0.7 10^3/uL (0.2-0.9) 01/09/25 04:57 Eos # (Auto) 0.6 10^3/uL (0.0-0.8) 01/09/25 04:57 Baso # (Auto) 0.1 10^3/uL (0.0-0.1) 01/09/25 04:57 Nucleated RBC % (auto) 0 % 01/09/25 04:57 Nucleated RBCs # 0.0 /100WBC 01/09/25 04:57 APTT Cancelled 01/09/25 04:57 Sodium 147 mmol/L (136-145) H 01/09/25 04:57 Potassium 3.6 mmol/L (3.5-5.1) 01/09/25 04:57 Chloride 110 mmol/L (98-107) H 01/09/25 04:57 Carbon Dioxide 20 mmol/L (22-29) L 01/09/25 04:57 Anion Gap 20.6 (5-19) H 01/09/25 04:57 BUN 32 mg/dL (8-23) H 01/09/25 04:57 Creatinine 2.2 mg/dL (0.7-1.2) H 01/09/25 04:57 GFR Calculation 30.0 mL/min (90-130) L 01/09/25 04:57 Glucose 118 mg/dL (65-115) H 01/09/25 04:57 Calculated Osmolality 312 mOsm/kg (285-295) H 01/09/25 04:57 Calcium 8.3 mg/dL (8.5-10.5) L 01/09/25 04:57 Total Bilirubin 0.3 mg/dL (0.15-1.2) 01/09/25 04:57 AST 16 U/L (0-40) 01/09/25 04:57 ALT 43 U/L (0-41) H 01/09/25 04:57 Alkaline Phosphatase 84 U/L (40-130) 01/09/25 04:57 Troponin T Baseline 1164 ng/L (0-15) H* 01/07/25 07:42 Troponin T 120 Minute 1183 ng/L (0-15) H 01/07/25 09:42 Delta Troponin T 19 ABS# (0-10) H* 01/07/25 09:42 Troponin T Hi Sens 6Hr 1223 ng/L (0-15) H 01/07/25 14:30 Troponin T Hi Sens 6Hr Delta 59 ng/L (0-12) H* 01/07/25 14:30 Total Protein 6.9 g/dL (6.6-8.7) 01/09/25 04:57 Albumin 2.9 g/dL (3.5-5.2) L 01/09/25 04:57 Globulin 4.0 g/dL (1.3-4.6) 01/09/25 04:57 Nasal MRSA (PCR) Mrsa detected (Negative) A 01/07/25 16:17 Coronavirus (PCR) Negative (Negative) 01/07/25 05:10 Influenza A (PCR) Negative (Negative) 01/07/25 05:10 Influenza Type B (PCR) Negative (Negative) 01/07/25 05:10 RSV (PCR) Negative (Negative) 01/07/25 05:10 A&P Assessment and plan (1) Elevated troponin I level: Most likely type II [place].. Continue on the current management (2) Recent ST elevation myocardial infarction (STEMI): Hemodynamically stable. No new EKG changes. Myocardial the current treatment. Slight improvement in the LV ejection fraction (3) Ischemic cardiomyopathy: Continue on the current medications. Try to optimize the afterload reducing agents (4) Iron deficiency anemia: May continue on the current management. Qualifiers: Iron deficiency anemia type: other iron deficiency Qualified Code(s): D50.8 - Other iron deficiency anemias Plan Other problems are Possible pneumonia Chronic kidney disease Chronic anemia Thrombocytopenia, resolved Developmental delay/cerebral palsy Seizure disorder Continue on the current management. PDMP PDMP Reviewed: Not Reviewed Attestations Medical Necessity Statement*: Disposition as per the primary Coding Level of Care Code 14669 Diagnoses Elevated troponin I level R79.[address] elevation myocardial infarction (STEMI) Ischemic cardiomyopathy I25.5 Other iron deficiency anemia D50.8 Iron deficiency anemia type: other iron deficiency
[2025-01-10] MEDS: dextrose 5% 1,000 ML 30 ML IV (08:30)
[2025-01-10] MEDS: multivitamin therapeutic Tablet 1 TAB PO (08:31)
[2025-01-10] MEDS: clopidogrel 75 mg Tablet PO (08:31)
[2025-01-10] MEDS: amiodarone 200 mg Tablet PO (08:31)
[2025-01-10] MEDS: citalopram 20 mg Tablet 10 MG PO (08:31)
[2025-01-10] MEDS: aspirin 81 mg EC Tablet PO (08:31)
[2025-01-10] MEDS: levETIRAcetam 500 mg Tablet 1000 MG PO (08:31)
[2025-01-10] MEDS: pantoprazole DR 40 mg Tablet PO (08:31)
[2025-01-10] MEDS: lactulose oral liq 20 gm/30 mL UDC PO (08:32)
[2025-01-10] MEDS: fluticasone nasal spray 16gm Btl 1 SPRAY INTRANASAL (08:32)
[2025-01-10] MEDS: enoxaparin 40 mg/0.4 mL Syringe SUBCUT (08:32)
[2025-01-10] MEDS: polyethylene glycol 3350 Pkt 17 gm PO (08:32)
[2025-01-10] MEDS: FUROsemide 10 mg/mL SDV 2mL 20 MG IVP (08:32)
[2025-01-10] MEDS: sennosides 8.6 mg Tablet PO (08:33)
[2025-01-10] MEDS: metoprolol tartrate 25 mg Tablet 12.5 MG PO (08:34)
--- NOTE | 2025-01-10 10:08 | P.DS_ITS ---
Discharge Providers Date of Admission: 01/07/25 08:01 Date of Discharge: January 10, 2025 Attending Provider at Admission: Omkar Vaughan Attending Provider at Discharge: Omkar Vaughan Primary Care Provider: MANDI Stewart Diagnoses at Discharge Discharge Diagnosis (1) Elevated troponin I level: Status: Acute (2) Recent ST elevation myocardial infarction (STEMI): Status: Acute (3) Ischemic cardiomyopathy: Status: Acute (4) Iron deficiency anemia: Status: Acute Qualifiers: Iron deficiency anemia type: other iron deficiency Qualified Code(s): D50.8 - Other iron deficiency anemias Reason for Visit Reason for Visit: LOW O2 Brief History: 69 year old male with severe development al delay, total assist, noncommunicative, living in a senior living, with histor epilepsy, y of PE following coronavirus infection with, previously on anticoagulation, GI bleeding, epilepsy, intermittent agitation, other medical problems, recently hospitalized after presentation after cardiogenic shock after ST elevation CT, u nderwent coronary geography with PCI to LAD with 3 NICOLÁS, balloon angioplasty of diagonal, PCI to RCA. Echocardiogram showed EF 20%. Regional wall motion normality with grade 1 diastolic dysfunction. During hospitalization he also developed multiorgan dysfunction with cardiogenic shock which showed gradual improvement and resolution. With concerns for dysphagia, hiatal hernia, risk of aspiration, consideration was given to a feeding tube, however, due to multiple concerns this was not pursued. He was advanced to dysphagia diet with aspiration precautions and continued on oral diet. He continues with Lasix as needed and fluid restriction at discharge. Continued with aspirin, Plavix, statin, beta-dawson, amiodarone. She was brought back to ER for evaluation due to hypoxia over at senior living. On evaluation in ER pulse oximetry was found to be okay, however, with productive cough, chest x-ray obtained, and with finding of mild cardiac decompensation, developing infiltrate in the left midlung laterally. He is found also to have hypernatremia 151. Troponin on assessment is found elevated at 1164. Renal function appears close to recent baseline with a CKD, creatinine 2.3. Sherrell navirus: Pf[employer], RSV PCR negative. Hospital Course Hospital Course He was admitted and started on antibiotic treatment for pneumonia, possible aspiration pneumonia with Zosyn, linezolid, started on cautious IV hydration with D5 due to hypernatremia but also underlying CHF with some acute exacerbation, Lasix transition to IV due to the lower extremity edema, some congestive changes noted on chest x-ray with underlying CHF. Responding well to treatment, oxygen saturations with improvement and maintaining good saturation on room air. Hypernatremia showing improvement. Continue to encourage oral intake as tolerating with hydration of at least 2 to 3 glasses of water, but limiting overall fluid intake to less than 1.5 L/day due to underlying congestive heart failure with low ejection fraction 39% on current echocardiogram. Continues with aspiration precautions, dysphagia diet with pur?ed solids, thick liquids. Continue respiratory therapy care. Additionally with elevated troponin on presentation to 1200 assessed by echocardiography as well as cardiology. Troponin elevation in the setting of CKD also after recent STEMI during which time troponin found coming up over 10,000. Additional assessment with stress test was requested, however, was not found to be able to tolerate the test and had to be canceled. On reassessment by cardiology echocardiogram showing no significant change from prior, without decreased ejection fraction, regional wall motion abnormality, without rise troponin, some component of demand likely secondary to initial presentation with hypoxia, pneumonia, recommendation per cardiology to continue medical treatments at current time with DAPT, statin, continues on low-dose beta-dawson which she has tolerated. Consideration of adjustment of medications was given further with isosorbide mononitrate, hydralazine, however, due to soft blood pressure these could not be continued. Request is made to continue to monitor blood pressures at the senior living, he is asked to follow-up with cardiology for reassessment. He will complete treatment course for pneumonia, possible aspiration pneumonia with Augmentin, linezolid given PCR swab returned positive for MRSA conization. As per discussion with his guardian, continue reassessment of his overall condition as he is at elevated risk of further aspiration pneumonia, with multiple underlying conditions including severe coronary disease, chronic kidney disease, poor functional status compounded by his advanced developmental delay he is at high risk of poor recovery, further decline, further recurrence of aspiration pneumonia, and additional medical comorbidities. It would be reasonable to monitor over the next few weeks to months overall recovery with consideration of revisiting goals of care and consideration of de-escalation to more palliative/comfort measures in case of recurrent comorbidities and/or failure to thrive. Physical Exam Const: GENERAL APPEARANCE: not cooperative ORIENTATION/CONSCIOUSNESS: Yes awake OTHER: Noncommunicative HENMT: COMMON NORMALS: oropharynx normal Neck/C-Spine: COMMON NORMALS: no JVD Resp: COMMON NORMALS: clear to auscultation bilaterally AUSCULTATION: clear to auscultation bilaterally and rhonchi Cardio: COMMON NORMALS: no JVD, regular rhythm, S1 normal heart sound present, S2 normal heart sound present and No murmurs present (Cardio) RHYTHM: regular rhythm HEART SOUNDS: S1 normal heart sound present and S2 normal heart sound present GI: COMMON NORMALS: Normal to inspection, nondistended, normoactive bowel sounds present, Soft to palpation and non-tender PALPATION: Yes Soft to palpation Extremity: COMMON NORMALS: no joint enlargement and no pedal edema Skin: COMMON NORMALS: no rashes or lesions noted GENERAL SKIN EXAM: no rashes or lesions noted Urinary Catheter Management: Lamb Latex: Cath Placed During This Visit: yes Reason for Continuing Indwelling Catheter: Accurate Measurement of Urinary Output in Critically Ill Patients Urinary Catheter Date of Insertion: 01/07/25 Urinary Catheter Time of Insertion: 23:00 Discharge Data Studies Completed and Pending Completed Studies During Hospitalization Category Date Time Status XR chest 1V portable [id number] Stat Exams 01/07/25 05:15 Completed CV. echo limited [id number] Routine Ultrasound 01/07/25 12:39 Completed Pending at discharge Category Date Time Status Cardiac Stress Test MIBI [Sestamibi Stress Test Request Exams 01/09/25 08:00 Ordered ] Routine Complete Blood Count w/Auto AM LABS Lab 01/10/25 04:00 Ordered Complete Blood Count w/Auto AM LABS Lab 01/11/25 04:00 Ordered Comprehensive Metabolic Panel AM LABS Lab 01/10/25 04:00 Ordered Comprehensive Metabolic Panel AM LABS Lab 01/11/25 04:00 Ordered Radiology Impressions Chest X-Ray 01/07/25 05:15 IMPRESSION: 1. Mild cardiac decompensation. 2. Developing infiltrate in the left mid lung laterally. Laboratory Results WBC 12.18 10^3/uL (3.29-11.43) H 01/09/25 04:57 RBC 3.23 10^6/uL (3.85-5.65) L 01/09/25 04:57 Hgb 8.60 g/dL (11.27-16.99) L 01/09/25 04:57 Hct 30.3 % (37-53) L 01/09/25 04:57 MCV 93.8 fl (82-101) 01/09/25 04:57 MCH 26.6 pg (27-33) L 01/09/25 04:57 MCHC 28.4 g/dL (30-55) L 01/09/25 04:57 RDW 21.0 % (12.1-15.1) H 01/09/25 04:57 Plt Count 255 10^3/cmm (157-399) 01/09/25 04:57 MPV 12.7 fL (7.4-10.4) H 01/09/25 04:57 Neut % (Auto) 78.9 % 01/09/25 04:57 Lymph % (Auto) 9.5 % 01/09/25 04:57 [place] % (Auto) 5.7 % 01/09/25 04:57 Eos % (Auto) 4.7 % 01/09/25 04:57 Baso % (Auto) 0.7 % 01/09/25 04:57 Neut # (Auto) 9.61 10^3/uL (1.8-7.7) H 01/09/25 04:57 Lymph # (Auto) 1.2 10^3/uL (0.8-4.8) 01/09/25 04:57 [place] # (Auto) 0.7 10^3/uL (0.2-0.9) 01/09/25 04:57 Eos # (Auto) 0.6 10^3/uL (0.0-0.8) 01/09/25 04:57 Baso # (Auto) 0.1 10^3/uL (0.0-0.1) 01/09/25 04:57 Nucleated RBC % (auto) 0 % 01/09/25 04:57 Nucleated RBCs # 0.0 /100WBC 01/09/25 04:57 APTT Cancelled 01/09/25 04:57 Sodium 147 mmol/L (136-145) H 01/09/25 04:57 Potassium 3.6 mmol/L (3.5-5.1) 01/09/25 04:57 Chloride 110 mmol/L (98-107) H 01/09/25 04:57 Carbon Dioxide 20 mmol/L (22-29) L 01/09/25 04:57 Anion Gap 20.6 (5-19) H 01/09/25 04:57 BUN 32 mg/dL (8-23) H 01/09/25 04:57 Creatinine 2.2 mg/dL (0.7-1.2) H 01/09/25 04:57 GFR Calculation 30.0 mL/min (90-130) L 01/09/25 04:57 Glucose 118 mg/dL (65-115) H 01/09/25 04:57 Calculated Osmolality 312 mOsm/kg (285-295) H 01/09/25 04:57 Calcium 8.3 mg/dL (8.5-10.5) L 01/09/25 04:57 Total Bilirubin 0.3 mg/dL (0.15-1.2) 01/09/25 04:57 AST 16 U/L (0-40) 01/09/25 04:57 ALT 43 U/L (0-41) H 01/09/25 04:57 Alkaline Phosphatase 84 U/L (40-130) 01/09/25 04:57 Troponin T Baseline 1164 ng/L (0-15) H* 01/07/25 07:42 Troponin T 120 Minute 1183 ng/L (0-15) H 01/07/25 09:42 Delta Troponin T 19 ABS# (0-10) H* 01/07/25 09:42 Troponin T Hi Sens 6Hr 1223 ng/L (0-15) H 01/07/25 14:30 Troponin T Hi Sens 6Hr Delta 59 ng/L (0-12) H* 01/07/25 14:30 Total Protein 6.9 g/dL (6.6-8.7) 01/09/25 04:57 Albumin 2.9 g/dL (3.5-5.2) L 01/09/25 04:57 Globulin 4.0 g/dL (1.3-4.6) 01/09/25 04:57 Nasal MRSA (PCR) Mrsa detected (Negative) A 01/07/25 16:17 Coronavirus (PCR) Negative (Negative) 01/07/25 05:10 Influenza A (PCR) Negative (Negative) 01/07/25 05:10 Influenza Type B (PCR) Negative (Negative) 01/07/25 05:10 RSV (PCR) Negative (Negative) 01/07/25 05:10 Vitals Last Vital Signs Temp 97.5 F L 01/10/25 04:00 Pulse 83 01/10/25 06:00 Resp 19 H 01/10/25 06:00 BP 93/66 01/10/25 06:00 Pulse Ox 99 01/10/25 06:00 O2 Del Method Room Air 01/10/25 06:00 Discharge Plan Discharge Patient Disposition: Home Condition: Stable Prescriptions: New amoxicillin-pot clavulanate 875-125 mg tablet 1 tab PO BID Qty: 20 0RF linezolid 600 mg tablet 600 mg PO BID 10 Days Qty: 20 0RF Continued levetiracetam 1,000 mg tablet 1,000 mg PO BID pantoprazole [Protonix] 40 mg tablet,delayed release (DR/EC) 40 mg PO BID 42 Days Qty: 84 1RF fluticasone propionate 50 mcg/actuation spray,suspension 1 spray intranasal DAILY Rx Instructions: administer into each nostril sennosides [Elizabet-melanie] 8.6 mg tablet 8.6 mg PO DAILY magnesium hydroxide [Milk of Magnesia] 400 mg/5 mL suspension 30 ml PO DAILY PRN (Reason: Constipation) dextromethorphan-guaifenesin [Tussin DM] 10-100 mg/5 mL syrup 5 ml PO Q4H PRN (Reason: Cough) multivitamin Tablet 1 tab PO DAILY lactulose 10 gram/15 mL Solution 30 ml PO DAILY acetaminophen 325 mg Tablet 325 mg PO QID PRN (Reason: pain) polyethylene glycol 3350 17 gram/dose Powder 17 g PO DAILY citalopram 10 mg Tablet 10 mg PO DAILY cetirizine 10 mg tablet 10 mg PO DAILY Fycompa 6 mg tablet 6 mg PO QAM atorvastatin 40 mg Tablet 40 mg PO BEDTIME Qty: 30 0RF amiodarone [Pacerone] 200 mg Tablet 200 mg PO DAILY Qty: 30 0RF clopidogrel 75 mg Tablet 75 mg PO DAILY Qty: 30 0RF aspirin 81 mg Tablet,Delayed Release (Dr/Ec) 81 mg PO DAILY Qty: 30 0RF metoprolol tartrate 25 mg Tablet 12.5 mg PO BID@0900,2100 Qty: 30 0RF furosemide [Lasix] 40 mg tablet 40 mg PO DAILY PRN (Reason: Lower limb swelling, gain of 5 pounds) Qty: 20 0RF Discharge Orders: Discharge Order (Routine); Ordered 01/10/25 Ordered By: Omkar Vaughan Referrals: Alecia Solorio FNP [Primary Care Provider] - 01/16/25 12:40 pm Rich Madison MD [Physician] - 2 weeks (after appointment with Zahra Jade /will schedule with appointment) Zahra Jade FNP [Nurse Practitioner] - 01/23/25 4:00 pm Discharge Diet: As Directed and Cardiac Discharge Activity: Increase activity as tolerated Patient Instructions: Amoxicillin (By mouth) (Amoxicot, Amoxil, Amoxil Pediatric, Trimox,..., Linezolid (By mouth) (Zyvox), Viral Pneumonia (DC), Aspiration Pneumonia (DC), Dyspnea (DC), Shortness of Breath (DC), Pneumonia Stoplight Activity Restrictions/Additional Instructions: Continue dysphagia diet with pureed solids, thickened liquids. Maintain strict aspiration precautions. Follow up for continued recovery from and resolution of pneumonia. Follow up regarding coronary artery disease and chronic kidney disease. ensure at least 2-3 cups of water intake a day but limit total intake to less than 1.5L in a day. Have the primary provider reassess sodium level and kidney function. Follow up with cardiology. Continue aspirin, plavix, atorvastatin, low dose metoprolol. Monitor blood pressures. Hold metopolol and furosemide in case blood pressure is below 95 systolic or below 60 diastolic. Avoid hypotension and seek medical attention if it occurs. Continue to revisit goals of care given advanced medical conditions, increased risk of recurrence of illness including pneumonia, cardiac illness, including congestive heart failure also in the setting of chronic kidney disease and underlying developmental delay requiring total assistance. Seek medical attention in case of any worsening or new concerning symptoms. Discharge Attestations Time Spent in Discharge Care*: greater than 30 min Status at Discharge: Cognitive status at discharge: severely impaired cognition , Behavioral status at discharge: cooperative , Quality Metrics Clinical Quality Measures [ No reported AMI, CVA or VTE this stay] Coding Level of Care Code 70966 Total time (in minutes) for Discharge: 50 Diagnoses Elevated troponin I level R79.[address] elevation myocardial infarction (STEMI) Ischemic cardiomyopathy I25.5 Other iron deficiency anemia D50.8 Iron deficiency anemia type: other iron deficiency
--- NOTE | 2025-01-10 11:29 | PC.NURSE ---
Report called to Jodie nurse at [facility].
--- NOTE | 2025-01-10 12:31 | PC.NURSE ---
Discharged to [facility] in patients personal wheelchair with transfer personal.
== END 2025-01-10 12:15 | disposition home or self-care (01) | DRG 177 ==
LOC: ER 06:36 → ER IP 08:29 → ICU 12:10 → ER IP 01-08 08:16
PROVIDERS: Emergency Medicine; Internal Medicine; Internal Medicine Cardiovascular Disease; Admitting Provider Internal Medicine; Emergency Provider Family Medicine; PCP Nurse Practitioner Family; Visit Provider Internal Medicine
DX: J69.0 Pneumonitis due to inhalation of food and vomit (principal); I21.3 ST elevation (STEMI) myocardial infarction of unspecified site; I50.21 Acute systolic (congestive) heart failure; E87.1 Hypo-osmolality and hyponatremia; I25.5 Ischemic cardiomyopathy; D50.8 Other iron deficiency anemias; R62.50 Unspecified lack of expected normal physiological development in childhood; G40.909 Epilepsy, unspecified, not intractable, without status epilepticus; Z86.711 Personal history of pulmonary embolism; Z86.16 Personal history of COVID-19; I25.10 Atherosclerotic heart disease of native coronary artery without angina pectoris; Z95.5 Presence of coronary angioplasty implant and graft; R09.02 Hypoxemia; N18.9 Chronic kidney disease, unspecified; R13.10 Dysphagia, unspecified; Z22.322 Carrier or suspected carrier of Methicillin resistant Staphylococcus aureus; Z79.02 Long term (current) use of antithrombotics/antiplatelets; R79.89 Other specified abnormal findings of blood chemistry
CPT/HCPCS: 36415; 51702; 71045; 80053; 84295; 84484; 85025; 85049; 85730; 86403; 87449; 87637; 93005; 93308; 96372; 96374; 99285; J1644; J1650; J1940; J2020; J2543; J7070

== ENCOUNTER → 2025-01-13 14:38 | Outpatient (BNVA) | payer MEDICAID, SELFPAY | PROVIDERS: PCP Nurse Practitioner Family; Visit Provider Nurse Practitioner Family | DX: I25.10 Atherosclerotic heart disease of native coronary artery without angina pectoris (principal); I25.5 Ischemic cardiomyopathy; I25.2 Old myocardial infarction | CPT/HCPCS: 99214 ==

== ENCOUNTER 2025-01-20 18:34 | Inpatient (IN) | payer MEDICAID, SELFPAY ==
--- NOTE | 2025-01-20 18:37 | XRR_ITS ---
PROCEDURE INFORMATION: Exam: XR Chest Exam date and time: 01/20/2025 6:44 PM Age: 69 years old Clinical indication: Shortness of breath TECHNIQUE: Imaging protocol: Radiologic exam of the chest. Views: 1 view. COMPARISON: CR (CHEST, ) 01/07/2025 5:26 AM FINDINGS: Lungs: Nonspecific prominence of the pulmonary interstitium can represent pulmonary edema or infectious/inflammatory processes. Additional hazy opacities in the left lung also seen on prior examination can represent some infiltrates. No lobar consolidation. Pleural spaces: Unremarkable. No pleural effusion. No pneumothorax. Heart/Mediastinum: Cardiomegaly. Bones/joints: Unremarkable. XR/XR chest 1V portable [id number] IMPRESSION: As above.
[2025-01-20 18:38] VITALS: BP 121/87; PULSE 88; RESP 22; TEMP 36.7; O2SAT 98; BMI 21.4
--- NOTE | 2025-01-20 19:00 | W.ED.URI ---
HPI - URI/Sore Throat General: Chief Complaint: Upper Respiratory Infection Stated Complaint: aspiration Time Seen by Provider: 01/20/25 18:35 History of Present Illness: 69-year-old man with a history of pulmonary embolism, profound developmental delay since who lives in a senior living and was sent to the emergency room by ambulance with concerns for aspiration event after he had an episode of vomiting today. He is unable to give any history. He is 98% on room air. Vitals are normal other than some slight tachypnea. He appears at his baseline. Related Data Home Medications ?Medication ?Instructions ?Recorded ?Confirmed dextromethorphan-guaifenesin 10 5 ml PO Q4H PRN Cough 05/17/21 01/13/25 mg-100 mg/5 mL oral syrup (Tussin DM) multivitamin 1 tab PO DAILY 05/02/23 01/13/25 acetaminophen 325 mg tablet 325 mg PO QID PRN pain 05/08/23 01/13/25 citalopram 10 mg tablet 10 mg PO DAILY 05/08/23 01/13/25 lactulose 10 gram/15 mL oral 30 ml PO DAILY 05/08/23 01/13/25 solution polyethylene glycol 3350 17 17 g PO DAILY 05/08/23 01/13/25 gram/dose oral powder fluticasone propionate 50 1 spray intranasal DAILY 06/20/23 01/13/25 mcg/actuation nasal spray,suspension magnesium hydroxide 400 mg/5 mL 30 ml PO DAILY PRN Constipation 06/20/23 01/13/25 oral suspension (Milk of Magnesia) sennosides 8.6 mg tablet (Elizabet-melanie) 8.6 mg PO DAILY 06/20/23 01/13/25 levetiracetam 1,000 mg tablet 1,000 mg PO BID 08/22/23 01/13/25 cetirizine 10 mg tablet 10 mg PO DAILY 12/15/24 01/13/25 perampanel 6 mg tablet (Fycompa) 6 mg PO QAM 12/15/24 01/13/25 Previous Rx's ?Medication ?Instructions ?Recorded pantoprazole 40 mg tablet,delayed 40 mg PO BID 6 weeks #84 tabs 08/22/23 release (Protonix) amiodarone 200 mg tablet (Pacerone) 200 mg PO DAILY #30 tabs 01/03/25 aspirin 81 mg tablet,delayed 81 mg PO DAILY #30 tabs 01/03/25 release atorvastatin 40 mg tablet 40 mg PO BEDTIME #30 tabs 01/03/25 clopidogrel 75 mg tablet 75 mg PO DAILY #30 tabs 01/03/25 furosemide 40 mg tablet (Lasix) 40 mg PO DAILY PRN Lower limb 01/03/25 swelling, gain of 5 pounds #20 tabs metoprolol tartrate 25 mg tablet 12.5 mg (1/2 x 25 mg) PO 01/03/25 BID@0900,2100 #30 tabs amoxicillin 875 mg-potassium 1 tab PO BID #20 tabs 01/10/25 clavulanate 125 mg tablet Allergies Allergy/AdvReac Type Severity Reaction Status Date / Time TIDE LAUNDRY SOAP Allergy ALGY-Rash Uncoded 01/20/25 18:42 Review of Systems General: Reports: ROS unobtainable due to medical condition [facility] ED PFSH: Medical History Cardiogenic shock Chronic anticoagulation Discontinued due to concerns for GI bleed History of pulmonary embolism Bradycardia Acute anemia ARDS survivor Protein calorie malnutrition ARDS (adult respiratory distress syndrome) Sepsis Hypernatremia Respiratory failure with hypoxia Developmental delay, profound Transaminitis Elevated lactic acid level Thrombocytopenia Pulmonary embolism Pneumonia due to COVID-19 virus Surgical History S/P percutaneous endoscopic gastrostomy (PEG) tube placement (05/27/21) removed 05/04/2022 Social History Smoking and tobacco/nicotine status: never used tobacco/nicotine Physical Exam Narrative: EXAM NARRATIVE: General: Patient is alert as he normally is. He is somewhat contractured. Appears chronically ill. Skin: Warm, dry. Head: Normocephalic, atraumatic. Neck: Supple, trachea midline. Eye: Extraocular movements are intact. Ears, nose, mouth and throat: mucosa moist. Cardiovascular: Regular, Normal peripheral perfusion. Respiratory: Lungs are clear to auscultation, respirations are non-labored, breath sounds are equal, Symmetrical chest wall expansion. Gastrointestinal: Soft, Nontender, Non distended Musculoskeletal: Normal ROM, no deformity. Neurological: Patient appears at his baseline. Psychiatric: Unable to assess. Course Vital Signs: Vital signs: Vital Signs Temperature 98.1 F 01/20/25 18:38 Pulse Rate 88 01/20/25 18:38 Respiratory Rate 22 H 01/20/25 18:38 Blood Pressure 121/87 01/20/25 18:38 Pulse Oximetry 98 01/20/25 18:38 Oxygen Delivery Me thod Room Air 01/20/25 18:38 MDM - URI/Sore Throat Medical Decision Making Differential diagnosis for patient with shortness of breath includes but is not limited to and based on the above HPI, review of systems and physical exam: Pneumonia. Bronchitis. Asthma or COPD with acute exacerbation. Acute coronary syndrome / ID. Pulmonary embolism. Anxiety. Congestive heart failure. Viral infections including influenza and Covid-19. Atrial fibrillation. Anxiety. Pleural effusion. Pneumothorax. Orders placed to evaluate differential diagnosis based on the above differential, HPI and physical exam EKG: Time 1906. Rate 86. Normal sinus rhythm, ST elevation in leads V2 and V3 that is chronic. No reciprocal changes, no ectopy, normal WI & QRS intervals, This was reviewed and interpreted by myself the ER physician at 0. I sent this EKG to cardiology. I reviewed the previous there is some elevations in V2 and V3, however this is chronic and unchanged from previous EKGs. Repeat EKG: Time 2104. Rate 81. Normal sinus rhythm, ST elevation in leads V2 and V3 that is chronic. No reciprocal changes, no ectopy, normal WI & QRS intervals, This was reviewed and interpreted by myself the ER physician at 2109. No changes from EKG done previously today in the emergency room. Lab Review: Laboratory results were reviewed and interpreted by myself the emergency room physician. Mild leukocytosis with a white count of 13,000. This is apparently a chronic level for him as the past several measurements have been right at this level. Some mild anemia with a hemoglobin of 9.8. BUN and creatinine are at his baseline at 37 and 2. His sodium is quite a bit higher than usual at 169. He always runs a little high between 145 and 150. Initial troponin is significantly elevated at 470. Repeat is pending. No changes in EKG from previous. Chest x-ray: No acute process. There are some chronic findings. Could represent pulmonary edema in the pulmonary interstitium. However this seems to been present previously. No lobar consolidations. No pneumothorax. This was reviewed and interpreted by myself the emergency room physician. I also reviewed the radiology report. I reviewed the patient's medical record. Consultation: I spoke with Dr. Freitas who is on-call for cardiology and recommends continued troponin trending and no further action at this time. Reexamination: There was a person in the room who is familiar with the patient. Apparently she works at the home he is at. She tells me he has a guardian who lives in [place]. He lives in a house with a roommate and has personal care each day. He does not communicate verbally. He has some contractures. He will sit in a wheelchair and can move his torso somewhat. He also will eat when fed but has to be on a special diet as he has aspiration issues. Consultation: I spoke with Dr. Saavedra who is on-call for the hospitalist service who agrees to admission. Assessment and plan: Hypernatremia Dehydration Chronic kidney disease Elevated troponin Vomiting ?Patient's vitals do not indicate sepsis. There was a sepsis flag. His respirations were a bit high earlier. His white count is chronically elevated. No signs of pneumonia or other signs of infection at this time so I am not treating him is septic. I am giving a liter of fluids for his sodium of 169. The rest can be managed by the hospitalist service. -I discussed the patient with the hospitalist on-call who is admitting the patient. - Discussed findings and plan with patient. Answered any questions. - All laboratory values were reviewed and interpreted personally by myself, the ER physician - All imaging was reviewed and interpreted personally by myself, the ER physician. - Evaluation and treatment of this problem were appropriate in the emergency setting Lab Data 01/20/25 20:20 01/20/25 20:20 Radiology Impressions Chest X-Ray 01/20/25 18:37 IMPRESSION: As above. Laboratory Results WBC 12.68 10^3/uL (3.29-11.43) H 01/20/25 20:20 RBC 3.61 10^6/uL (3.85-5.65) L 01/20/25 20:20 Hgb 9.80 g/dL (11.27-16.99) L 01/20/25 20:20 Hct 35.6 % (37-53) L 01/20/25 20:20 MCV 98.6 fl (82-101) 01/20/25 20:20 MCH 27.1 pg (27-33) 01/20/25 20:20 MCHC 27.5 g/dL (30-55) L 01/20/25 20:20 RDW 22.1 % (12.1-15.1) H 01/20/25 20:20 Plt Count 149 10^3/cmm (157-399) L 01/20/25 20:20 MPV 12.3 fL (7.4-10.4) H 01/20/25 20:20 Neut % (Auto) 78.6 % 01/20/25 20:20 Lymph % (Auto) 11.5 % 01/20/25 20:20 [place] % (Auto) 3.2 % 01/20/25 20:20 Eos % (Auto) 5.9 % 01/20/25 20:20 Baso % (Auto) 0.5 % 01/20/25 20:20 Neut # (Auto) 9.97 10^3/uL (1.8-7.7) H 01/20/25 20:20 Lymph # (Auto) 1.5 10^3/uL (0.8-4.8) 01/20/25 20:20 [place] # (Auto) 0.4 10^3/uL (0.2-0.9) 01/20/25 20:20 Eos # (Auto) 0.8 10^3/uL (0.0-0.8) 01/20/25 20:20 Baso # (Auto) 0.1 10^3/uL (0.0-0.1) 01/20/25 20:20 Nucleated RBC % (auto) 0 % 01/20/25 20:20 Nucleated RBCs # 0.0 /100WBC 01/20/25 20:20 Sodium 169 mmol/L (136-145) H* 01/20/25 20:20 Potassium 4.9 mmol/L (3.5-5.1) 01/20/25 20:20 Chloride 134 mmol/L (98-107) H 01/20/25 20:20 Carbon Dioxide 22 mmol/L (22-29) 01/20/25 20:20 Anion Gap 17.9 (5-19) 01/20/25 20:20 BUN 37 mg/dL (8-23) H 01/20/25 20:20 Creatinine 2.0 mg/dL (0.7-1.2) H 01/20/25 20:20 GFR Calculation 33.5 mL/min (90-130) L 01/20/25 20:20 Glucose 88 mg/dL (65-115) 01/20/25 20:20 Calculated Osmolality 356 mOsm/kg (285-295) H 01/20/25 20:20 Calcium 9.2 mg/dL (8.5-10.5) 01/20/25 20:20 Total Bilirubin 0.2 mg/dL (0.15-1.2) 01/20/25 20:20 AST 17 U/L (0-40) 01/20/25 20:20 ALT 25 U/L (0-41) 01/20/25 20:20 Alkaline Phosphatase 125 U/L (40-130) 01/20/25 20:20 Troponin T Baseline 472 ng/L (0-15) H* 01/20/25 20:04 NT-Pro-B Natriuret Pep 6263 pg/mL (0-125) H 01/20/25 20:20 Total Protein 7.7 g/dL (6.6-8.7) 01/20/25 20:20 Albumin 3.5 g/dL (3.5-5.2) 01/20/25 20:20 Globulin 4.2 g/dL (1.3-4.6) 01/20/25 20:20 Lipase 38 U/L (13-60) 01/20/25 20:20 All radiology interpretation(s) finalized by discharge Discharge Plan Discharge Patient Disposition: Admitted As Inpatient Admit Provider: Bharathi Saavedra Clinical Impression: Hypernatremia, Elevated troponin, Dehydration, Dysphagia, Developmental delay, profound, Nonverbal Condition: Stable Coding Level of Care Code ED Shift Engineer for Júnior El
--- NOTE | 2025-01-20 19:07 | ECG_ITS ---
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1955 Requested By: Marielle Powell Order Number: [id number] Reading MD: ARIELLE RAIN Measurements Intervals [place] Rate: 86 P: 42 AR: 149 QRS: 62 QRSD: 90 T: 85 QT: 413 QTc: 495 Interpretive Statements SINUS RHYTHM LOW QRS VOLTAGE [QRS DEFLECTION < 0.5/1.0 mV IN LIMB/CHEST LEADS] ANTEROSEPTAL MYOCARDIAL INFARCTION , PROBABLY RECENT [40+ ms Q WAVE IN V1-V4] ACUTE OK Compared to ECG 01/07/2025 13:26:32 Right-axis deviation no longer present Myocardial infarct finding still present Electronically Signed On 01-21-2025 23:34:22 COUNSELOR [employer] by ARIELLE RAIN [email or web address]
[2025-01-20 20:30] VITALS: BP 133/90; PULSE 89; O2SAT 99
[2025-01-20 20:34] LABS: Troponin(5th) Baseline 472 ng/L (0-15)
[2025-01-20 20:40] LABS: Basophils # 0.1 10^3/uL (0.0-0.1); Basophils % 0.5 %; Eosinophils # 0.8 10^3/uL (0.0-0.8); Eosinophils % 5.9 %; Hematocrit 35.6 % (37-53); Lymphocytes # 1.5 10^3/uL (0.8-4.8); Lymphocytes % 11.5 %; Mean Corpuscular HGB Conc 27.5 g/dL (30-55); Mean Corpuscular Hemoglobin 27.1 pg (27-33); Mean Corpuscular Volume 98.6 fl (82-101); Mean Platelet Volume 12.3 fL (7.4-10.4); Monocytes # 0.4 10^3/uL (0.2-0.9); Monocytes % 3.2 %; Neutrophils # 9.97 10^3/uL (1.8-7.7); Neutrophils % 78.6 %; Nucleated Red Blood Cells % 0 %; Platelet Count 149 10^3/cmm (157-399); Red Blood Count 3.61 10^6/uL (3.85-5.65); Red Cell Distribution Width 22.1 % (12.1-15.1); White Blood Count 12.68 10^3/uL (3.29-11.43)
--- NOTE | 2025-01-20 21:05 | ECG_ITS ---
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
[2025-01-20 21:11] LABS: Alanine Aminotransferase 25 U/L (0-41); Albumin Level 3.5 g/dL (3.5-5.2); Alkaline Phosphatase 125 U/L (40-130); Aspartate Amino Transferase 17 U/L (0-40); Blood Urea Nitrogen 37 mg/dL (8-23); Calcium 9.2 mg/dL (8.5-10.5); Carbon Dioxide 22 mmol/L (22-29); Chloride 134 mmol/L (98-107); Creatinine Clr Calc Pharmacy 37.0684; Globulin 4.2 g/dL (1.3-4.6); Glomerular Filtration Rate 33.5 mL/min (90-130); Glucose 88 mg/dL (65-115); Lipase 38 U/L (13-60); NT Pro B Type Natriuretic Pept 6263 pg/mL (0-125); Osmolality Calculated 356 mOsm/kg (285-295); Total Bilirubin 0.2 mg/dL (0.15-1.2); Total Protein 7.7 g/dL (6.6-8.7)
[2025-01-20 21:26] LABS: Anion Gap 17.9 (5-19); Potassium 4.9 mmol/L (3.5-5.1)
[2025-01-20 21:27] LABS: Sodium 169 mmol/L (136-145)
--- NOTE | 2025-01-20 21:46 | PM.HP ---
Providers/Chief Complaint Primary Care Provider: MANDI Stewart Chief Complaint: aspiration History of Present Illness 69 year old male with severe developmental delay, total assist, noncommunicative, living in a half-way, with histor epilepsy, PE following coronavirus infection with, previously on anticoagulation, GI bleeding, epilepsy, intermittent agitation, other medical problems, recently hospitalized after presentation after cardiogenic shock 12/[address] elevation GA, underwent coronary geography with PCI to LAD with 3 NICOLÁS, balloon angioplasty of diagonal, PCI to RCA. Echocardiogram showed EF 20% with recent improvement to 39%. Regional wall motion normality with grade 1 diastolic dysfunction. During hospitalization he also developed multiorgan dysfunction with cardiogenic shock which showed gradual improvement and resolution. With concerns for dysphagia, hiatal hernia, risk of aspiration, consideration was given to a feeding tube, however, due to multiple concerns this was not pursued. He was advanced to dysphagia diet with aspiration precautions and continued on oral diet As per the caregiver who is at the bedside, patient started experiencing recurrent nausea vomiting on Monday, he would intermittently take his medications as well in last 2 to 3 days, no fever, there is possibility of aspiration, secondary to recent coronary artery stent PEG tube placement was postponed He has a public senior windows administrator power of securities attorney in [place] Workup in the ER revealed severe hypernatremia sodium 169 Creatinine 2.0 Patient has some redness around his gluteal and sacral area Grade 1 pressure sores around gluteal region no active sign of infection Patient is wearing depends Currently patient is on room air Troponin 472, EKG showing T wave inversion anteroseptal leads which are also present on previous EKGs on comparison, please note his previous baseline troponin was around [address] Freitas regarding these findings Review of Systems General: Reports: ROS unobtainable due to medical condition Medications/Allergies Home Medications ?Medication ?Instructions ?Recorded ?Confirmed ?Last Taken ?Type dextromethorphan-guaifenesin 10 5 ml PO Q4H PRN Cough 05/17/21 01/13/25 12/28/21 History mg-100 mg/5 mL oral syrup (Tussin DM) multivitamin 1 tab PO DAILY 05/02/23 01/13/25 01/06/25 History acetaminophen 325 mg tablet 325 mg PO QID PRN pain 05/08/23 01/13/25 Unknown History citalopram 10 mg tablet 10 mg PO DAILY 05/08/23 01/13/25 01/06/25 History lactulose 10 gram/15 mL oral 30 ml PO DAILY 05/08/23 01/13/25 01/06/25 History solution polyethylene glycol 3350 17 17 g PO DAILY 05/08/23 01/13/25 01/06/25 History gram/dose oral powder fluticasone propionate 50 1 spray intranasal DAILY 06/20/23 01/13/25 01/06/25 History mcg/actuation nasal spray,suspension magnesium hydroxide 400 mg/5 mL 30 ml PO DAILY PRN Constipation 06/20/23 01/13/25 Unknown History oral suspension (Milk of Magnesia) sennosides 8.6 mg tablet (Elizabet-melanie) 8.6 mg PO DAILY 06/20/23 01/13/25 01/06/25 History levetiracetam 1,000 mg tablet 1,000 mg PO BID 08/22/23 01/13/25 01/06/25 History pantoprazole 40 mg tablet,delayed 40 mg PO BID 6 weeks #84 tabs 08/22/23 01/13/25 01/06/25 Rx release (Protonix) cetirizine 10 mg tablet 10 mg PO DAILY 12/15/24 01/13/25 01/06/25 History perampanel 6 mg tablet (Fycompa) 6 mg PO QAM 12/15/24 01/13/25 01/06/25 History amiodarone 200 mg tablet (Pacerone) 200 mg PO DAILY #30 tabs 01/03/25 01/13/25 01/06/25 Rx aspirin 81 mg tablet,delayed 81 mg PO DAILY #30 tabs 01/03/25 01/13/25 01/06/25 Rx release atorvastatin 40 mg tablet 40 mg PO BEDTIME #30 tabs 01/03/25 01/13/25 01/06/25 Rx clopidogrel 75 mg tablet 75 mg PO DAILY #30 tabs 01/03/25 01/13/25 01/06/25 Rx furosemide 40 mg tablet (Lasix) 40 mg PO DAILY PRN Lower limb 01/03/25 01/13/25 Unknown Rx swelling, gain of 5 pounds #20 tabs metoprolol tartrate 25 mg tablet 12.5 mg (1/2 x 25 mg) PO 01/03/25 01/13/25 01/06/25 Rx BID@0900,2100 #30 tabs amoxicillin 875 mg-potassium 1 tab PO BID #20 tabs 01/10/25 01/13/25 Unknown Rx clavulanate 125 mg tablet Allergies Allergy/AdvReac Type Severity Reaction Status Date / Time TIDE LAUNDRY SOAP Allergy ALGY-Rash Uncoded 01/20/25 18:42 PFSH Acute PFSH: Medical History Cardiogenic shock Chronic anticoagulation Discontinued due to concerns for GI bleed History of pulmonary embolism Bradycardia Acute anemia ARDS survivor Protein calorie malnutrition ARDS (adult respiratory distress syndrome) Sepsis Hypernatremia Respiratory failure with hypoxia Developmental delay, profound Transaminitis Elevated lactic acid level Thrombocytopenia Pulmonary embolism Pneumonia due to COVID-19 virus Surgical History S/P percutaneous endoscopic gastrostomy (PEG) tube placement (05/27/21) removed 05/04/2022 Social History Smoking and tobacco/nicotine status: never used tobacco/nicotine Vitals/I&O/Wt Last Vital Signs Temp 98.1 F 01/20/25 18:38 Pulse 88 01/20/25 18:38 Resp 22 H 01/20/25 18:38 BP 121/87 01/20/25 18:38 Pulse Ox 98 01/20/25 18:38 O2 Del Method Room Air 01/20/25 18:38 01/20/25 01/20/25 01/20/25 06:59 14:59 22:59 Intake Total 0 / 0 Balance 0 / 0 Weight last 48 hrs Weight 69.853 kg Physical Exam Narrative: Patient is nonverbal Clinical looks dehydrated Abdomen soft Pressure ulcer stage I bilateral gluteal area, no active sign of infection Patient is wearing depends Currently on room air Hemodynamically stable Extremity contractures No hemodynamic instability noted S1, S2 Bilateral breath sounds with rhonchi Neuroexam is limited Data 01/20/25 20:20 01/20/25 20:20 A&P Assessment and plan (1) Troponin level elevated: (2) Pulmonary embolism: Qualifiers: Acute cor pulmonale presence: without acute cor pulmonale Chronicity: acute Pulmonary embolism type: unspecified Qualified Code(s): I26.99 - Other pulmonary embolism without acute cor pulmonale (3) Thrombocytopenia: (4) Dysphagia: (5) Hypernatremia: (6) Hypernatremia: (7) Dehydration: (8) Iron deficiency anemia: Qualifiers: Iron deficiency anemia type: other iron deficiency Qualified Code(s): D50.8 - Other iron deficiency anemias (9) Leukocytosis: (10) Developmental delay, profound: (11) Breakthrough seizure: (12) Nonverbal: (13) Aspiration pneumonia: Plan Acute on chronic hypernatremia Severe signs of dehydration Free water deficit up to 7 L Start D5 normal saline, check sodium level every 4 hours Patient has been vomiting since Monday, will obtain KUB Considering recent PCI patient will need dual antiplatelet therapy, in case of further vomiting episodes in the hospital to give him dual antiplatelet therapy nasogastric tube will be recommended Considering recent PCI he was deemed not a good candidate for PEG tube placement, he has been experiencing recurrent dehydration episodes with vomiting and hypernatremia His power of securities attorney is in [place] who is a public senior windows administrator Recent STEMI and cardiogenic shock Status post PCI Continue dual antiplatelet therapy Continue antiemetics Aspiration: Patient was getting pur?ed diet with thickened liquid He is high risk for aspirations Sepsis due to aspiration pneumonia: Continue Zosyn previous nares MRSA PCR positive, add anti-MRSA coverage with doxycycline as well Judicious use of septic bolus considering low EF and obtain sputum and blood culture Elevated troponin: However troponin lower than before, EKG showing chronic changes of T wave inversion in anteroseptal leads, on comparison these changes does not seem to be new Patient hemodynamically stable Will do limited echo Pressure ulcer stage I without any sign of infection Chronic kidney disease: Creatinine on baseline Nonverbal, high risk for aspiration pneumonia, Chronic anemia: Stable DVT prophylaxis: Heparin Full code On review of records: Seems like there was some discussion going on between the physician at the public senior windows administrator regarding goals of care, they wanted to see how patient would respond in next few months before changing goals of care, he is full code for now PDMP PDMP Reviewed: Not Reviewed Attestations Medical Necessity Statement*: More than 2 midnights anticipated Diagnoses Troponin level elevated R79.89 Acute pulmonary embolism without acute cor pulmonale, unspecified pulmonary embolism type I26.99 Acute cor pulmonale presence: without acute cor pulmonale Chronicity: acute Pulmonary embolism type: unspecified Thrombocytopenia D69.6 Dysphagia R13.10 Hypernatremia E87.0 Dehydration E86.0 Other iron deficiency anemia D50.8 Iron deficiency anemia type: other iron deficiency Leukocytosis D72.829 Developmental delay, profound R62.50 Breakthrough seizure G40.919 Nonverbal R47.01 Aspiration pneumonia J69.0
[2025-01-20] MEDS: sodium chloride 0.9% 1,000 ML 999 ML IV (22:01)
[2025-01-20] MEDS: dextrose 5%-sod chloride 0.45% 1,000 ML 75 ML IV (22:02)
[2025-01-20 22:18] LABS: Procalcitonin 0.24 ng/mL (0-0.5)
[2025-01-20 22:30] VITALS: BP 122/82; PULSE 84; O2SAT 96
[2025-01-20 22:48] LABS: Lactic Sepsis W/Reflex 3.4 mmol/L (0.5-2.2)
[2025-01-20 22:50] LABS: Troponin 5 2HR Delta -8.8 ABS# (0-10)
[2025-01-20 22:51] LABS: Troponin 5 2HR 463.2 ng/L (0-15)
[2025-01-20 23:30] VITALS: BP 134/92; PULSE 83; O2SAT 99
[2025-01-20] MEDS: doxycycline 100 MG in sodium chloride 0.9% (plus) 100 ML IV (23:33)
[2025-01-20] MEDS: heparin 5,000 unit/mL INJ 1 mL 5000 UNIT SUBCUT (23:43)
[2025-01-21] VITALS (13 sets, daily range): BP systolic 97–145; BP diastolic 61–93; PULSE 77–91; RESP 16–20; TEMP 36.4–36.6; O2SAT 92–98; BMI 21.4
--- NOTE | 2025-01-21 00:11 | USCV_ITS ---
Jorge Luis Lucas Age: 69 Gender: M : 1955 Exam Date: 01/21/2025 02:32 Ordering Phys: Bharathi Saavedra MD Technologist: DANIELLE Exam Location: [facility] [place] Indication: ef history of pulmonary embolism BP: 121 / 82 HR: 78 Rhythm: Sinus Technical Quality: Adequate MEASUREMENTS (Male / Female) Normal Values 2D ECHO LV Diastolic Diameter PLAX 3.8 cm 4.2 - 5.9 / 3.9 - 5.3 cm IVS Diastolic Thickness 1.6 cm 0.6 - 1.0 / 0.6 - 0.9 cm IVS Systolic Thickness 1.7 cm LVPW Diastolic Thickness 0.9 cm 0.6 - 1.0 / 0.6 - 0.9 cm LVPW Systolic Thickness 1.6 cm LVOT Diameter 1.6 cm LV Ejection Fraction 2D Teich 43.3 % LV Ejection Fraction MOD 4C 36.3 % LV Ejection Fraction MOD 2C 11.9 % LV Ejection Fraction 2C AL 13.7 % LA Diameter 2.7 cm Aorta at Sinotubular Diameter 3.3 cm IVC Diameter 1.5 cm M-MODE LA Ao Ratio MM 0.9 AV Cusp Separation MM 1.9 cm DOPPLER AV Peak Velocity 100.0 cm/s LVOT Peak Velocity 95.0 cm/s AV Area Cont Eq vti 1.9 cm squared AV Area Cont Eq pk 1.9 cm squared MV Peak Velocity 118.0 cm/s MV Area PHT 5.9 cm squared Mitral E to A Ratio 1.3 TR Peak Velocity 262.0 cm/s TR Peak Gradient 27.5 mmHg TV Peak E Velocity 43.0 cm/s PV Peak Velocity 79.0 cm/s FINDINGS Left Ventricle Moderately increased left ventricular cavity size. Severely decreased left ventricular systolic function. Left ventricular ejection fraction is estimated at 35 %. There is mid to distal anterior septal and apical wall akinesis.Grade II/IV diastolic dysfunction, moderately elevated filling pressures. Right Ventricle The right ventricle is normal in size and function. Right Atrium The right atrium is normal in size. Left Atrium The left atrium is normal in size. Mitral Valve Moderately thickened mitral valve. No mitral valve stenosis. Aortic Valve Thickened aortic valve. No aortic valve stenosis. Mild aortic valve regurgitation. Tricuspid Valve [id number] tricuspid valve regurgitation. Pulmonic Valve Structurally normal pulmonic valve without significant stenosis. There is no pulmonic regurgitation. Pericardium Normal pericardium without effusion. Aorta Normal ascending aorta dimension. IVC The inferior vena cava appears normal. CONCLUSIONS Moderately increased left ventricular cavity size. Severely decreased left ventricular systolic function. Left ventricular ejection fraction is estimated at 35 %. There is mid to distal anterior septal and apical wall akinesis.Grade II/IV diastolic dysfunction, moderately elevated filling pressures. Moderately thickened mitral valve. No mitral valve stenosis. Thickened aortic valve. No aortic valve stenosis. Mild aortic valve regurgitation. [id number] tricuspid valve regurgitation. There is no pericardial effusion. Right atrial pressure is around 5 mm of mercury. Bharathi Downey MD (Electronically Signed) Final Date: 21 January 2025 10:37 S
[2025-01-21 00:12] LABS: Reflex Lactate Order REFLEX LACTIC ORDERD
--- NOTE | 2025-01-21 00:13 | XRR_ITS ---
PROCEDURE INFORMATION: Exam: XR Abdomen Exam date and time: 01/21/2025 1:36 AM Age: 69 years old Clinical indication: Nausea and vomiting; Additional info: Nausea vomiting TECHNIQUE: Imaging protocol: Radiologic exam of the abdomen. Views: Frontal supine view of the abdomen. 1 View. COMPARISON: CR XR abdomen 1V* [id number] 12/31/2024 11:53 AM FINDINGS: Gastrointestinal tract: Moderate, but decreased colonic bowel gas, nonspecific. Bones/joints: Unremarkable. XR/XR KUB portable [id number] IMPRESSION: Nonspecific, nonobstructive abdomen.
[2025-01-21] MEDS: piperacillin-tazobactam 3.375 GM in sodium chloride 0.9% (plus) 50 ML IV ×4 (00:41→21:49)
--- NOTE | 2025-01-21 01:00 | ECG_ITS ---
[employer])[facility] [place] Test Date: 2025-01-21 Pat Name: Jorge Luis Lucas Department: Room: EDIP Gender: Male Education Coordinator: : 1955 Requested By: Marielle Powell Order Number: [id number] Reading MD: ARIELLE RAIN Measurements Intervals [place] Rate: 85 P: 68 SD: 147 QRS: 96 QRSD: 93 T: 91 QT: 385 QTc: 458 Interpretive Statements SINUS RHYTHM BORDERLINE RIGHT AXIS DEVIATION [QRS AXIS > 90] LOW QRS VOLTAGE [QRS DEFLECTION < 0.5/1.0 mV IN LIMB/CHEST LEADS] ANTEROSEPTAL MYOCARDIAL INFARCTION , PROBABLY RECENT [40+ ms Q WAVE IN V1-V4] ACUTE IA INTERPRETATION BASED ON A DEFAULT AGE OF 40 YEARS Compared to ECG 01/20/2025 21:05:11 No significant changes Electronically Signed On 01-21-2025 23:46:15 BECK OPERATOR by ARIELLE RAIN [email or web address]
[2025-01-21 01:23] LABS: Sodium 167 mmol/L (136-145)
[2025-01-21 02:36] LABS: Troponin 5 6HR 495.1 ng/L (0-15)
[2025-01-21 02:37] LABS: Troponin 5 6HR Delta 23.1 ng/L (0-12)
[2025-01-21 04:15] LABS: Basophils % 0.4 %; Eosinophils # 0.7 10^3/uL (0.0-0.8); Eosinophils % 7.1 %; Hematocrit 30.1 % (37-53); Lymphocytes # 1.2 10^3/uL (0.8-4.8); Lymphocytes % 12.6 %; Mean Corpuscular HGB Conc 28.2 g/dL (30-55); Mean Corpuscular Hemoglobin 27.3 pg (27-33); Mean Corpuscular Volume 96.8 fl (82-101); Mean Platelet Volume 12.6 fL (7.4-10.4); Monocytes # 0.3 10^3/uL (0.2-0.9); Monocytes % 3.4 %; Neutrophils # 6.98 10^3/uL (1.8-7.7); Neutrophils % 76.3 %; Nucleated Red Blood Cells % 0 %; Platelet Count 133 10^3/cmm (157-399); Red Blood Count 3.11 10^6/uL (3.85-5.65); Red Cell Distribution Width 21.5 % (12.1-15.1); White Blood Count 9.15 10^3/uL (3.29-11.43)
[2025-01-21 04:44] LABS: Sodium 166 mmol/L (136-145)
[2025-01-21 04:54] LABS: C Reactive Protein 35.7 mg/L (0.0-4.9); Magnesium 2.3 mg/dL (1.7-2.3); Phosphorus 3.5 mg/dL (2.5-4.5)
--- NOTE | 2025-01-21 05:53 | PC.NURSE ---
Pt arrived on med/surg at this time.
--- NOTE | 2025-01-21 06:31 | PC.NURSE ---
Pt presents non verbal at this time, right eye appears to have extreme visual limitation with potential blindness. Pt head of bead elevated 30 degrees to help prevent further aspiration.
[2025-01-21] MEDS: pantoprazole 40 mg SDV IVP ×2 (08:35→17:18)
[2025-01-21 08:49] LABS: Sodium 168 mmol/L (136-145)
[2025-01-21] MEDS: dextrose 5% 1,000 ML 100 ML IV ×2 (09:16→20:01)
[2025-01-21] MEDS: doxycycline 100 MG in sodium chloride 0.9% (plus) 100 ML IV ×2 (10:43→21:46)
[2025-01-21] MEDS: heparin 5,000 unit/mL INJ 1 mL 5000 UNIT SUBCUT ×2 (10:43→21:45)
--- NOTE | 2025-01-21 10:55 | PM.CONSULT ---
Providers/Reason For Consult Consulting Physician/Specialty*: dr. santizo gen surg Reason for Consult*: feeding tube Attending Physician: Eder Snyder MD Primary Care Provider: MANDI Stewart History of Present Illness History of Present Illness Jorge Luis Lucas is a 69 year old male whom surgery was consulted to consider surgical feeding access. Patient has been seen by Dr. Horan for the same reason. Patient is very high risk for perioperative complications. He is not a candidate for a gastrostomy tube given that almost the entirety of this stomach is in the chest. The options for feeding access are either a Dubhoff tube under endoscopic guidance or a jejunostomy tube. Patient is closely followed by cardiology and DAPT cannot be interrupted. In addition he is encephalopathic and is at high risk for tube dislodgement which could be life threatening. He currently has a Na of 164. Medications/Allergies Home Medications ?Medication ?Instructions ?Recorded ?Confirmed ?Last Taken ?Type dextromethorphan-guaifenesin 10 5 ml PO Q4H PRN Cough 05/17/21 01/21/25 12/28/21 History mg-100 mg/5 mL oral syrup (Tussin DM) multivitamin 1 tab PO DAILY 05/02/23 01/21/25 01/20/25 History acetaminophen 325 mg tablet 325 mg PO QID PRN pain 05/08/23 01/21/25 Unknown History citalopram 10 mg tablet 10 mg PO DAILY 05/08/23 01/21/25 01/20/25 History lactulose 10 gram/15 mL oral 30 ml PO DAILY 05/08/23 01/21/25 01/20/25 History solution polyethylene glycol 3350 17 17 g PO DAILY 05/08/23 01/21/25 01/20/25 History gram/dose oral powder fluticasone propionate 50 1 spray intranasal DAILY 06/20/23 01/21/25 01/06/25 History mcg/actuation nasal spray,suspension magnesium hydroxide 400 mg/5 mL 30 ml PO DAILY PRN Constipation 06/20/23 01/21/25 Unknown History oral suspension (Milk of Magnesia) sennosides 8.6 mg tablet (Elizabet-melanie) 8.6 mg PO DAILY 06/20/23 01/21/25 01/21/25 History levetiracetam 1,000 mg tablet 1,000 mg PO BID 08/22/23 01/21/25 01/20/25 History pantoprazole 40 mg tablet,delayed 40 mg PO BID 6 weeks #84 tabs 08/22/23 01/21/25 01/20/25 Rx release (Protonix) cetirizine 10 mg tablet 10 mg PO DAILY 12/15/24 01/21/25 01/20/25 History perampanel 6 mg tablet (Fycompa) 6 mg PO QAM 12/15/24 01/21/25 01/20/25 History amiodarone 200 mg tablet (Pacerone) 200 mg PO DAILY #30 tabs 01/03/25 01/21/25 01/20/25 Rx aspirin 81 mg tablet,delayed 81 mg PO DAILY #30 tabs 01/03/25 01/21/25 01/20/25 Rx release atorvastatin 40 mg tablet 40 mg PO BEDTIME #30 tabs 01/03/25 01/21/25 01/06/25 Rx clopidogrel 75 mg tablet 75 mg PO DAILY #30 tabs 01/03/25 01/21/25 01/20/25 Rx furosemide 40 mg tablet (Lasix) 40 mg PO DAILY PRN Lower limb 01/03/25 01/21/25 Unknown Rx swelling, gain of 5 pounds #20 tabs metoprolol tartrate 25 mg tablet 12.5 mg (1/2 x 25 mg) PO 01/03/25 01/21/25 01/20/25 Rx BID@0900,2100 #30 tabs amoxicillin 875 mg-potassium 1 tab PO BID #20 tabs 01/10/25 01/21/25 01/20/25 Rx clavulanate 125 mg tablet Allergies Allergy/AdvReac Type Severity Reaction Status Date / Time TIDE LAUNDRY SOAP Allergy ALGY-Rash Uncoded 01/20/25 18:42 Current Medications Generic Name Dose Route Start Last Admin Trade Name Freq PRN Reason Stop Dose Admin Heparin Sodium (Porcine) 5,000 unit 01/20/25 22:01/21/25 10:43 Heparin 5,000 Unit/Ml Inj 1 Ml SUBCUT 5,000 unit Q12H SHWETA Administration Doxycycline Hyclate 100 mg/ 100 mls @ 100 mls/hr 01/20/25 22:23 01/21/25 10:43 Sodium Chloride IV 100 mls/hr Q12H SHWETA Administration Protocol Piperacillin Sod/Tazobactam 50 mls @ 12.5 mls/hr 01/21/25 06:30 01/21/25 10:34 Sod 3.375 gm/ Sodium Chloride IV Infused Q8H SHWETA Infusion Dextrose 1,000 mls @ 100 mls/hr 01/21/25 09:00 01/21/25 09:16 D5w IV 100 mls/hr .Q10H SHWETA Administration Pantoprazole Sodium 40 mg 01/21/25 09:00 01/21/25 08:35 Pantoprazole 40 Mg Sdv IVP 40 mg BID SHWETA Administration PFSH Acute PFSH: Medical History Cardiogenic shock Chronic anticoagulation Discontinued due to concerns for GI bleed History of pulmonary embolism Bradycardia Acute anemia ARDS survivor Protein calorie malnutrition ARDS (adult respiratory distress syndrome) Sepsis Hypernatremia Respiratory failure with hypoxia Developmental delay, profound Transaminitis Elevated lactic acid level Thrombocytopenia Pulmonary embolism Pneumonia due to COVID-19 virus Surgical History S/P percutaneous endoscopic gastrostomy (PEG) tube placement (05/27/21) removed 05/04/2022 Social History Smoking and tobacco/nicotine status: never used tobacco/nicotine Vitals/I&O/Wt Last Vital Signs Temp 97.8 F 01/21/25 08:14 Pulse 91 01/21/25 09:06 Resp 16 01/21/25 09:06 BP 116/76 01/21/25 08:14 Pulse Ox 92 01/21/25 09:06 O2 Del Method Room Air 01/21/25 09:06 01/20/25 01/21/25 01/21/25 22:59 06:59 14:59 Intake Total 0 / 0 1150 / 1150 893.75 / 893.75 Balance 0 / 0 1150 / 1150 893.75 / 893.75 Weight last 48 hrs Weight 173 lb 11.2 oz Weight 154 lb Weight 154 lb Weight 154 lb Physical Exam Narrative: RRR Tachypneic on 2L NC Abdomen soft, NT, ND Urinary Catheter Management: Lamb: Cath Placed During This Visit: yes Reason for Continuing Indwelling Catheter: Other Urinary Catheter Date of Insertion: 01/21/25 Urinary Catheter Time of Insertion: 02:17 Data 01/21/25 04:08 01/21/25 19:57 Micro: Microbiology 01/20/25 22:15 Blood Culture - Preliminary Blood SPECIMEN COLLECTED 01/20/25 22:20 Blood Culture - Preliminary Blood SPECIMEN COLLECTED A&P Assessment and plan (1) Dehydration: Plan 69yo male with multiple comorbidities whom surgery was consulted to consider surgical feeding tube placement. DAPT cannot be interrupted per cardiology. Encephalopathic and still being resuscitated, Na 164. Patient is not a good candidate for surgical feeding tube placement. Recommend dubhoff tube placement under endoscopic guidance as a first choice once fully resuscitated and Na corrected. Will discuss with hospitalist. PDMP PDMP Reviewed: Not Reviewed Coding Level of Care Code 46545 Diagnoses Dehydration E86.0 Time Spent (min) 30
[2025-01-21 12:55] LABS: Sodium 164 mmol/L (136-145)
--- NOTE | 2025-01-21 12:57 | P.PN_ITS ---
Subjective 2 Subjective: The patient is encephalopathic. He is unable to provide history even at baseline. He has had multiple recurrent admissions. He said recurrent hyponatremia. Initially feeding tube was not a possibility due to recent cardiac stent. Now that time is passed, risk of rein-stent thrombosis is less. He is quite for quite some time on modified diet as and he is consistently not able to take in enough free water to maintain his volume status. He is getting recurrently hypernatremic. Unless his guardian has changed his goals of care, he is likely going to need a feeding tube placed for fluid and nutritional augmentation. Medications: Reviewed: Yes Vitals/I&O/Wt Last Vital Signs Temp 97.9 F 01/21/25 11:15 Pulse 89 01/21/25 11:15 Resp 16 01/21/25 11:15 BP 97/61 01/21/25 11:15 Pulse Ox 98 01/21/25 11:15 O2 Del Method Room Air 01/21/25 11:15 01/20/25 01/21/25 01/21/25 22:59 06:59 14:59 Intake Total 0 / 0 1150 / 1150 993.75 / 993.75 Balance 0 / 0 1150 / 1150 993.75 / 993.75 Weight last 48 hrs Weight 78.789 kg Weight 69.853 kg Weight 69.853 kg Weight 69.853 kg Physical Exam 2 Narrative: General: Patient is encephalopathic. Chronically ill-appearing. Head: Atraumatic. Neck: No JVD. Cardiovascular: RRR. No gallops. No murmurs. Lungs: Breath sounds diminished, no use of accessory muscles, no crackles or wheezes. Skin: No jaundice. No rashes. Abdomen: Hypoactive bowel sounds, abdomen soft. Genito Urinary: Genital exam not performed since complaints not related. Rectal: Rectal exam not performed since no symptoms indicated blood loss. Extremities: No cyanosis or clubbing. Musculoskeletal: No erythematous joints. Neurological: No myoclonus. Encephalopathic. Urinary Catheter Management: Lamb: Cath Placed During This Visit: yes Reason for Continuing Indwelling Catheter: Other Urinary Catheter Date of Insertion: 01/21/25 Urinary Catheter Time of Insertion: 02:17 Data 01/21/25 04:08 01/21/25 12:22 Micro: Microbiology 01/20/25 22:15 Blood Culture - Preliminary Blood SPECIMEN COLLECTED 01/20/25 22:20 Blood Culture - Preliminary Blood SPECIMEN COLLECTED A&P Assessment and plan (1) Hypernatremia: Patient is failing to thrive in adulthood with recurrent hypernatremia He is not able to take in enough free water due to his dysphagia Given his recent clinical course, he would benefit from feeding tube placement for fluid and nutritional augmentation It is previously known that he is not a candidate for PEG tube due to hiatal hernia He will need open tube which may be a better option considering he is at risk of dislodging his tube Consulting general surgery for evaluation Continue free water replacement, changed to D5W Trend sodium levels (2) Dysphagia: Patient has persistent dysphagia Has been on a modified diet for some time and it is not working He is okay to continue on modified diet if okay with speech but he still needs augmentation with feeding tube Speech therapy consults placed, n.p.o. while awaiting recs (3) Troponin level elevated: Troponin elevation noted Check echocardiogram (4) Aspiration pneumonia: Aspiration pneumonia with sepsis Continue current antibiotics Aspiration precautions (5) Thrombocytopenia: Monitor for signs of bleeding Hold Plavix in anticipation of possible surgery (6) Dehydration: IV fluids as above (7) Developmental delay, profound: Patient is nonverbal has significant developmental delay at baseline He is a [facility] of the [facility] (8) Iron deficiency anemia: Monitor blood counts Qualifiers: Iron deficiency anemia type: other iron deficiency Qualified Code(s): D 50.8 - Other iron deficiency anemias (9) Chronic kidney disease: Patient has component of CKD, monitor renal function Daily assessments of volume Plan DVT prophylaxis: Heparin Patient reportedly full CODE STATUS. PDMP PDMP Reviewed: Not Reviewed Attestations 2 Medical Necessity Statement*: Patient requires ongoing hospitalization for treatment of severe hyponatremia, feeding tube assessment, IV antibiotics, and supportive care. Coding Level of Care Code Acute Code for [facility] Fwd Diagnoses Hypernatremia E87.0 Dysphagia R13.10 Troponin level elevated R79.89 Aspiration pneumonia J69.0 Thrombocytopenia D69.6 Dehydration E86.0 Developmental delay, profound R62.50 Other iron deficiency anemia D50.8 Iron deficiency anemia type: other iron deficiency Chronic kidney disease N18.9
--- NOTE | 2025-01-21 13:53 | P.CONIM_ITS ---
<Statement entered by Bharathi Downey MD - 02/08/25 18:32> Patient was evaluated and cared for in conjunction with an advanced practice practitioner. I personally examined the patient and reviewed the chart and all pertinent data including imaging, telemetry, and laboratory results. I discussed the patient in detail with the advanced practice practitioner. Please see their note for complete H&P testing result and agreed upon plan of care for the patient. Providers/Reason For Consult 2 Consulting Physician/Specialty*: Dr. Downey Reason for Consult*: NSTEMI Requesting Physician: Dr. Saavedra Attending Physician: Eder Snyder MD Primary Care Provider: MANDI Stewart History of Present Illness History of Present Illness Jorge Luis Lucas is a 69 year old male with history of pulmonary embolism, developmental delay, aspiration, coronary artery disease was sent to the ER by ambulance with concerns for an aspiration event after he had had an episode of vomiting yesterday. He was found to be hypernatremic. Previously the patient underwent PCI to LAD with 3 drug-eluting stents balloon angioplasty diagonal, PCI to the RCA for an acute STEMI. Ejection fraction was 20% with recent improvement to 39%. He had a recent hospital stay for multiorgan dysfunction with cardiogenic shock with gradual improvement and resolution. EKG showed sinus rhythm with no acute ST elevation or T wave abnormalities. Q waves seen in V1 2 and 3. This is unchanged from previous EKG. At present, he is on room air and appears comfortable. Limited echo was done that showed EF of 25%. At this time, he appears well compensated. Review of Systems 2 Narrative: Unable to obtain. Patient is not verbally responsive. Medications/Allergies Home Medications ?Medication ?Instructions ?Recorded ?Confirmed ?Last Taken ?Type dextromethorphan-guaifenesin 10 5 ml PO Q4H PRN Cough 05/17/21 01/21/25 12/28/21 History mg-100 mg/5 mL oral syrup (Tussin DM) multivitamin 1 tab PO DAILY 05/02/2312/2901/20/25 History acetaminophen 325 mg tablet 325 mg PO QID PRN pain 11/1801/21/25 Unknown History citalopram 10 mg tablet 10 mg PO DAILY 05/08/2312/2901/20/25 History lactulose 10 gram/15 mL oral 30 ml PO DAILY 05/08/23 0 01/21/25 01/20/25 History solution polyethylene glycol 3350 17 17 g PO DAILY 05/08/2301/20/25 History gram/dose oral powder fluticasone propionate 50 1 spray intranasal DAILY 01/21/25 01/06/25 History mcg/actuation nasal spray,suspension magnesium hydroxide 400 mg/5 mL 30 ml PO DAILY PRN Con stipation 06/20/23 01/21/25 Unknown History oral suspension (Milk of Magnesia) sennosides 8.6 mg tablet (Elizabet-melanie) 8.6 mg PO DAILY 01/21/25 01/21/25 History levetiracetam 1,000 mg tablet 1,000 mg PO BID 08/22/23 01/21/25 01/20/25 History pantoprazole 40 mg tablet,delayed 40 mg PO BID 6 weeks #84 tabs 08/22/23 01/21/25 01/20/25 Rx release (Protonix) cetirizine 10 mg tablet 10 mg PO DAILY 12/15/24/04/2001/20/25 History perampanel 6 mg tablet (Fycompa) 6 mg PO QAM 12/15/24 01/21/25 01/20/25 History amiodarone 200 mg tablet (Pacerone) 200 mg PO DAILY #3 0 tabs 01/03/25 01/21/25 01/20/25 Rx aspirin 81 mg tablet,delayed 81 mg PO DAILY #30 tabs 0 01/03/25 01/21/25 01/20/25 Rx release atorvastatin 40 mg tablet 40 mg PO BEDTIME #30 tabs 01/21/25 01/06/25 Rx clopidogrel 75 mg tablet 75 mg PO DAILY #30 tabs 06/2001/21/25 01/20/25 Rx furosemide 40 mg tablet (Lasix) 40 mg PO DAILY PRN Low er limb 01/03/25 01/21/25 Unknown Rx swelling, gain of 5 pounds #20 tabs metoprolol tartrate 25 mg tablet 12.5 mg (1/2 x 25 mg) PO 01/03/25 01/21/25 01/20/25 Rx BID@0900,2100 #30 tabs amoxicillin 875 mg-potassium 1 tab PO BID #20 tabs 01/21/25 01/20/25 Rx clavulanate 125 mg tablet Allergies Allergy/AdvReac Type Severity Reaction Status Date / Time TIDE LAUNDRY SOAP Allergy ALGY-Rash Uncoded 01/20/25 18:42 Current Medications Generic Name Dose Route Start Last Admin Trade Name Freq PRN Reason Stop Dose Admin Heparin Sodium (Porcine) 5,000 unit 01/20/25 22:23 01/21/25 10:43 Heparin 5,000 Unit/Ml Inj 1 Ml SUBCUT 5,000 unit Q12H SHWETA Administration Doxycycline Hyclate 100 mg/ 100 mls @ 100 mls/hr 01/20/25 22:23 01/21/25 11:38 Sodium Chloride IV Infused Q12H SHWETA Infusion Protocol Piperacillin Sod/Tazobactam 50 mls @ 12.5 mls/hr 01/21/25 06:30 01/21/25 10:34 Sod 3.375 gm/ Sodium Chloride IV Infused Q8H SHWETA Infusion Dextrose 1,000 mls @ 100 mls/hr 01/21/25 09:00 01/21/25 09:16 D5w IV 100 mls/hr .Q10H SHWETA Administration Pantoprazole Sodium 40 mg 01/21/25 09:00 01/21/25 08:35 Pantoprazole 40 Mg Sdv IVP 40 mg BID SHWETA Administration PFSH Acute 2 PFSH: Medical History Cardiogenic shock Chronic anticoagulation Discontinued due to concerns for GI bleed History of pulmonary embolism Bradycardia Acute anemia ARDS survivor Protein calorie malnutrition ARDS (adult respiratory distress syndrome) Sepsis Hypernatremia Respiratory failure with hypoxia Developmental delay, profound Transaminitis Elevated lactic acid level Thrombocytopenia Pulmonary embolism Pneumonia due to COVID-19 virus Surgical History S/P percutaneous endoscopic gastrostomy (PEG) tube placement (05/27/21) removed 05/04/2022 Social History Smoking and tobacco/nicotine status: never used tobacco/nicotine Vitals/I&O/Wt Last Vital Signs Temp 97.9 F 01/21/25 11:15 Pulse 89 01/21/25 11:15 Resp 16 01/21/25 11:15 BP 97/61 01/21/25 11:15 Pulse Ox 98 01/21/25 11:15 O2 Del Method Room Air 01/21/25 11:15 01/20/25 01/21/25 01/21/25 22:59 06:59 14:59 Intake Total 0 / 0 1150 / 1150 993.75 / 993.75 Balance 0 / 0 1150 / 1150 993.75 / 993.75 Weight last 48 hrs Weight 173 lb 11.2 oz Weight 154 lb Weight 154 lb Weight 154 lb Physical Exam 2 Narrative: General: No apparent distress Respiratory: Normal respiratory effort, clear to auscultation bilaterally throughout all lung shell, no use of accessory muscles Cardio: No JVD, regular rate, regular rhythm, S1 S2 normal, no murmurs, peripheral pulses 2+ radial palpated bilaterally Extremities: Full ROM, normal, normal capillary refill, trace pedal edema bilaterally anterior aspect Neuro: chronic neuro deficits Skin: No rashes or lesions noted, no wounds Urinary Catheter Management: Lamb: Cath Placed During This Visit: yes Reason for Continuing Indwelling Catheter: Other Urinary Catheter Date of Insertion: 01/21/25 Urinary Catheter Time of Insertion: 02:17 Data 01/21/25 04:08 01/21/25 12:22 Micro: Microbiology 01/20/25 22:15 Blood Culture - Preliminary Blood SPECIMEN COLLECTED 01/20/25 22:20 Blood Culture - Preliminary Blood SPECIMEN COLLECTED Other data: Echo Complete CONCLUSIONS Moderately increased left ventricular cavity size. Severely decreased left ventricular systolic function. Left ventricular ejection fraction is estimated at 35 %. There is mid to distal anterior septal and apical wall akinesis.Grade II/IV diastolic dysfunction, moderately elevated filling pressures. Moderately thickened mitral valve. No mitral valve stenosis. Thickened aortic valve. No aortic valve stenosis. Mild aortic valve regurgitation. Bfck-eo-zamfwmyu tricuspid valve regurgitation. There is no pericardial effusion. Right atrial pressure is around 5 mm of mercury. A&P Assessment and plan (1) Cardiogenic shock: (2) Congestive heart failure: Qualifiers: Heart failure type: systolic Heart failure chronicity: chronic Q ualified Code(s): I50.22 - Chronic systolic (congestive) heart failure (3) Troponin level elevated: (4) Abnormal EKG: (5) Ischemic cardiomyopathy: (6) Elevated troponin: Plan At this time, patient troponin is significantly elevated. EKG w/o acute changes. EF is close to baseline. He is in no acute distress and is well compensated. Previous troponin was 4600 prior. Now baseline is 472. At this time, patient's troponin has remained stable. We will continue to treat medically. Recommend continuing Aspirin and Plavix without interruption, as patient is at high risk of in stent thrombosis if these are stopped. Continue amiodarone. Overall, patient appears well compensated from a cardiac standpoint. Thank you, Dr. Saavedra, for allowing us to care for this gentleman. PDMP PDMP Reviewed: Not Reviewed Consult Attestations 2 Medical Necessity Statement: Deferred to primary care. Coding Level of Care Code Acute Code for Chg Fwd Diagnoses Cardiogenic shock R57.0 Chronic systolic congestive heart failure I50.22 Heart failure type: systolic Heart failure chronicity: chronic Troponin level elevated R79.89 Abnormal EKG R94.31 Ischemic cardiomyopathy I25.5
[2025-01-21] MEDS: aspirin 81 mg EC Tablet PO (14:16)
[2025-01-21] MEDS: amiodarone 200 mg Tablet PO (14:16)
[2025-01-21 19:05] LABS: Sodium 162 mmol/L (136-145)
[2025-01-21 20:36] LABS: Sodium 164 mmol/L (136-145)
[2025-01-22 04:00] VITALS: BP 104/70; PULSE 79; RESP 20; TEMP 36.2; O2SAT 97
[2025-01-22] MEDS: dextrose 5% 1,000 ML 100 ML IV ×2 (04:46→14:12)
[2025-01-22 06:00] VITALS: BMI 24.1
[2025-01-22] MEDS: piperacillin-tazobactam 3.375 GM in sodium chloride 0.9% (plus) 50 ML IV ×3 (06:21→22:27)
[2025-01-22 07:50] VITALS: BP 190/79; PULSE 92; RESP 16; TEMP 36.8; O2SAT 91
[2025-01-22] MEDS: pantoprazole 40 mg SDV IVP ×2 (09:02→17:09)
[2025-01-22] MEDS: heparin 5,000 unit/mL INJ 1 mL 5000 UNIT SUBCUT ×2 (09:02→22:27)
[2025-01-22] MEDS: amiodarone 200 mg Tablet PO (09:02)
[2025-01-22] MEDS: clopidogrel 75 mg Tablet PO (09:02)
[2025-01-22] MEDS: doxycycline 100 MG in sodium chloride 0.9% (plus) 100 ML IV ×2 (09:03→22:27)
[2025-01-22] MEDS: aspirin 81 mg EC Tablet PO (09:04)
[2025-01-22 09:27] VITALS: PULSE 92; RESP 16; O2SAT 91
--- NOTE | 2025-01-22 10:51 | PC.NURSE ---
Multiple attempts at blood draw by lab and nursing staff. Dr. Snyder notified. PICC line ordered. car wash supervisor notified.
[2025-01-22 11:13] VITALS: BP 111/70; PULSE 77; RESP 19; TEMP 36.4; O2SAT 93
--- NOTE | 2025-01-22 11:55 | P.PN_ITS ---
Subjective 2 Subjective: Patient unable to provide any history which is his baseline. Unable to obtain labs this morning due to difficult stick. Will obtain a line today. I spoke with his legal guardian yesterday for some time. Discussed the presentation and clinical course. We discussed various options moving forward with his care. Attempting to figure out if we can provide the services that the [place] [facility] [place] I discussed my initial plan to hold Plavix and explained this was high risk for ST, IN, CHF and . He understands this risk. I discussed cardiology will not recommend holding either of his antiplatelet agents. He did acknowledge that he has a legal guardian and he will provide the consent for the care. Discussed with cardiology provider yesterday. Dr. Downey states he will talk to the legal guardian reemphasize his recommendations. Followed up with general surgery this morning regarding jejunostomy tube placement. Initial recommendation for long-term Dobbhoff tube was confirmed not to be an option with patient's facility. The question now is whether or not patient is a candidate for jejunostomy tube. I have asked the general surgeon to discuss this with the legal guardian. If he is truly not a candidate for jejunostomy tube that hospice should be offered as an option to the legal guardian. If he is a candidate for jejunostomy tube placement, then we will need to consider if that will be a possibility here [place] [facility] [place] A tube would need to be expedited to my understanding to the facility for placement. We are still working on optimizing his electrolytes which will still take some time. Otherwise a transfer could be considered however this will be extremely difficult. This was tried previously and essentially unsuccessful. Will await further recommendations after general surgery speaks with legal guardian to help guide patient's care. Medications: Reviewed: Yes Vitals/I&O/Wt Last Vital Signs Temp 98.2 F 01/22/25 07:50 Pulse 92 01/22/25 09:27 Resp 16 01/22/25 09:27 BP 190/79 01/22/25 07:50 Pulse Ox 91 01/22/25 09:27 O2 Del Method Room Air 01/22/25 09:27 01/21/25 01/22/25 01/22/25 22:59 06:59 14:59 Intake Total 1050 / 2043.75 1025 / 3068.75 150 / 150 Output Total 600 / 600 350 / 950 Balance 450 / 1443.75 675 / 2118.75 150 / 150 Weight last 48 hrs Weight 78.744 kg Weight 78.471 kg Weight 78.789 kg Weight 69.853 kg Weight 69.853 kg Weight 69.853 kg Physical Exam 2 Narrative: General: Patient is encephalopathic. Chronically ill-appearing. No significant change from yesterday's exam. Head: Atraumatic. Neck: No JVD. Cardiovascular: RRR. No gallops. No murmurs. Lungs: Breath sounds diminished, no use of accessory muscles, no crackles or wheezes. Skin: No jaundice. No rashes. Abdomen: Hypoactive bowel sounds, abdomen soft. Genito Urinary: Genital exam not performed since complaints not related. Rectal: Rectal exam not performed since no symptoms indicated blood loss. Extremities: No cyanosis or clubbing. Contracted upper extremity. Musculoskeletal: No erythematous joints. Neurological: No myoclonus. Encephalopathic. Urinary Catheter Management: Lamb: Cath Placed During This Visit: yes Reason for Continuing Indwelling Catheter: Other Urinary Catheter Date of Insertion: 01/21/25 Urinary Catheter Time of Insertion: 02:17 Data 01/21/25 04:08 01/21/25 19:57 Micro: Microbiology 01/20/25 22:15 Blood Culture - Preliminary Blood NEGATIVE TO DATE 01/20/25 22:20 Blood Culture - Preliminary Blood NEGATIVE TO DATE A&P Assessment and plan (1) Hypernatremia: Patient is failing to thrive in adulthood with recurrent hypernatremia He is not able to take in enough free water due to his dysphagia Given his recent clinical course, he would benefit from feeding tube placement for fluid and nutritional augmentation It is previously known that he is not a candidate for PEG tube due to hiatal hernia Continue D5W infusion Obtaining better PICC line today as we need serial labs and get access I have asked general surgery to determine if patient is a candidate for jejunostomy tube in conjunction with his legal guardian; neck steps in his plan of care with a greatly depend on this conversation I will plan to follow-up with the legal guardian after both subspecialties have time to provide input and conversation with him. (2) Dysphagia: Patient has persistent dysphagia Speech therapy saw patient yesterday modified diet was restarted however due to concern overnight he has been placed back n.p.o. again (3) Troponin level elevated: Cardiology following, appreciate recommendations (4) Aspiration pneumonia: Aspiration pneumonia with sepsis Continue current antibiotics Aspiration precautions (5) Thrombocytopenia: Monitor for signs of bleeding (6) Dehydration: IV fluids as above (7) Developmental delay, profound: Patient is nonverbal has significant developmental delay at baseline He is a [place] of the state (8) Iron deficiency anemia: Monitor blood counts Qualifiers: Iron deficiency anemia type: other iron deficiency Qualified Code(s): D 50.8 - Other iron deficiency anemias (9) Chronic kidney disease: Patient has component of CKD, monitor renal function Daily assessments of volume Plan DVT prophylaxis: Heparin PDMP PDMP Reviewed: Not Reviewed Attestations 2 Medical Necessity Statement*: Patient requires ongoing hospitalization for IV fluids, ongoing speech therapy evaluation, cardiology expertise, general surgery evaluation, and supportive care. Coding Level of Care Code Acute Code for g Fwd Diagnoses Hypernatremia E87.0 Dysphagia R13.10 Troponin level elevated R79.89 Aspiration pneumonia J69.0 Thrombocytopenia D69.6 Dehydration E86.0 Developmental delay, profound R62.50 Other iron deficiency anemia D50.8 Iron deficiency anemia type: other iron deficiency Chronic kidney disease N18.9
--- NOTE | 2025-01-22 12:28 | XR_ITS ---
WS: [id number] Portable AP upright chest, 01/22/2025 Clinical Data: post PICC insertion Comparison: Portable chest, 01/20/2025 Findings: The left PICC line shows no pneumothorax. It ends in the caval atrial junction. There are bilateral patchy opacities in the lungs. XR/XR chest 1V portable [id number] Impression: Satisfactory placement left PICC line.
[2025-01-22 13:53] LABS: Basophils % 0.2 %; Eosinophils # 0.5 10^3/uL (0.0-0.8); Eosinophils % 6.3 %; Hematocrit 27.6 % (37-53); Lymphocytes # 0.8 10^3/uL (0.8-4.8); Lymphocytes % 10.1 %; Mean Corpuscular Hemoglobin 27.6 pg (27-33); Mean Corpuscular Volume 95.2 fl (82-101); Mean Platelet Volume 12.7 fL (7.4-10.4); Monocytes # 0.5 10^3/uL (0.2-0.9); Monocytes % 5.5 %; Neutrophils # 6.38 10^3/uL (1.8-7.7); Neutrophils % 77.5 %; Nucleated Red Blood Cells % 0 %; Platelet Count 97 10^3/cmm (157-399); Red Cell Distribution Width 21.5 % (12.1-15.1); White Blood Count 8.23 10^3/uL (3.29-11.43)
[2025-01-22 14:14] LABS: Albumin Level 3.2 g/dL (3.5-5.2); Blood Urea Nitrogen 29 mg/dL (8-23); Calcium 8.4 mg/dL (8.5-10.5); Carbon Dioxide 20 mmol/L (22-29); Chloride 130 mmol/L (98-107); Creatinine Clr Calc Pharmacy 43.1288; Glomerular Filtration Rate 37.8 mL/min (90-130); Glucose 109 mg/dL (65-115); Phosphorus 3.2 mg/dL (2.5-4.5)
[2025-01-22 14:21] LABS: Anion Gap 16.3 (5-19); Potassium 4.3 mmol/L (3.5-5.1)
[2025-01-22 14:24] LABS: Sodium 162 mmol/L (136-145)
--- NOTE | 2025-01-22 14:25 | PICC.NOTE ---
Double lumen PICC placed to left basilic vein. Referred to vascular access nurse for PICC placement due to poor access. Unable to reach guardian for consent. Urgent consent obtained per Dr. Snyder. Right arm assessed and noted to be contractured with peripheral IV in what appears to be the cephalic vein above the AC. Left arm assessed with multiple bruises noted and a non-working IV noted above the left AC in what appears to be the brachial vein. Left basilic vein assessed and measured at 5.0 mm, straight, and apparent best choice for placement. Using sterile technique and MST, right baslic vein accessed x 1 stick. Mid-arm circumference measured 10 cm from left AC 27 cm. Trimmed cath 43 cm with 2 cm external length noted. CXR shows tip in cavoatrial junction, in good position for use per radiologist. Line secured with stat-lock. Insertion site covered with Biopatch and TSM. Report given to bedside nurse, GROVER Kimbrough.
[2025-01-22 16:00] VITALS: BP 130/84; PULSE 85; RESP 16; TEMP 36.5; O2SAT 99
--- NOTE | 2025-01-22 17:03 | PM.MISC ---
Miscellaneous Note Note: Attempted to reach patient's guardian without success. Will attempt 01/22 AM.
--- NOTE | 2025-01-22 18:30 | P.PN_ITS ---
<Statement entered by Bharathi Downey MD - 02/08/25 18:29> Patient was evaluated and cared for in conjunction with an advanced practice practitioner. I personally examined the patient and reviewed the chart and all pertinent data including imaging, telemetry, and laboratory results. I discussed the patient in detail with the advanced practice practitioner. Please see their note for complete H&P testing result and agreed upon plan of care for the patient. Subjective 2 Subjective: Patient seen today. Overall, no changes from a cardiology standpoint. Vitals/I&O/Wt Last Vital Signs Temp 97.7 F 01/22/25 16:00 Pulse 85 01/22/25 16:00 Resp 16 01/22/25 16:00 BP 130/84 01/22/25 16:00 Pulse Ox 99 01/22/25 16:00 O2 Del Method Room Air 01/22/25 16:00 01/22/25 01/22/25 01/22/25 06:59 14:59 22:59 Intake Total 1025 / 3068.75 1093.333 / 1093.333 50 / 1143.333 Output Total 350 / 950 500 / 500 Balance 675 / 2118.75 1093.333 / 1093.333 -450 / 643.333 Weight last 48 hrs Weight 173 lb 9.6 oz Weight 173 lb Weight 173 lb 11.2 oz Weight 154 lb Weight 154 lb Weight 154 lb Physical Exam 2 Narrative: General: No apparent distress Respiratory: Normal respiratory effort, clear to auscultation bilaterally throughout all lung shell, no use of accessory muscles Cardio: No JVD, regular rate, regular rhythm, S1 S2 normal, no murmurs, peripheral pulses 2+ radial palpated bilaterally Extremities: Full ROM, normal, normal capillary refill, trace pedal edema bilaterally anterior aspect Neuro: chronic neuro deficits Skin: No rashes or lesions noted, no wounds Urinary Catheter Management: Lamb: Cath Placed During This Visit: yes Reason for Continuing Indwelling Catheter: Other Urinary Catheter Date of Insertion: 01/21/25 Urinary Catheter Time of Insertion: 02:17 Data 01/22/25 13:30 01/22/25 13:30 Micro: Microbiology 01/20/25 22:15 Blood Culture - Preliminary Blood NEGATIVE TO DATE 01/20/25 22:20 Blood Culture - Preliminary Blood NEGATIVE TO DATE A&P Assessment and plan (1) Cardiogenic shock: (2) Congestive heart failure: Qualifiers: Heart failure type: systolic Heart failure chronicity: chronic Q ualified Code(s): I50.22 - Chronic systolic (congestive) heart failure (3) Troponin level elevated: (4) Abnormal EKG: (5) Ischemic cardiomyopathy: (6) Elevated troponin: Plan We will continue to treat medically. Recommend continuing Aspirin and Plavix without interruption, as patient is at high risk of in stent thrombosis if these are stopped. Continue amiodarone. Overall, patient appears well compensated from a cardiac standpoint. PDMP PDMP Reviewed: Not Reviewed Attestations 2 Medical Necessity Statement*: Deferred to primary care. Coding Level of Care Code Acute Code for [facility] Fwd Diagnoses Cardiogenic shock R57.0 Chronic systolic congestive heart failure I50.22 Heart failure type: systolic Heart failure chronicity: chronic Troponin level elevated R79.89 Abnormal EKG R94.31 Ischemic cardiomyopathy I25.5
[2025-01-22 19:34] LABS: Sodium 158 mmol/L (136-145)
[2025-01-22 19:55] VITALS: BP 105/57; PULSE 83; RESP 18; TEMP 36.7; O2SAT 92
[2025-01-23] VITALS (7 sets, daily range): BP systolic 89–108; BP diastolic 58–73; PULSE 85–97; RESP 14–18; TEMP 36.8–37.6; O2SAT 91–97
[2025-01-23] MEDS: dextrose 5% 1,000 ML 100 ML IV ×2 (00:39→11:04)
[2025-01-23 01:25] LABS: Sodium 156 mmol/L (136-145)
[2025-01-23 05:02] LABS: Alanine Aminotransferase 20 U/L (0-41); Alkaline Phosphatase 108 U/L (40-130); Blood Urea Nitrogen 25 mg/dL (8-23); Carbon Dioxide 18 mmol/L (22-29); Chloride 121 mmol/L (98-107); Globulin 3.9 g/dL (1.3-4.6); Glomerular Filtration Rate 37.8 mL/min (90-130); Glucose 249 mg/dL (65-115); Magnesium 1.8 mg/dL (1.7-2.3); Osmolality Calculated 327 mOsm/kg (285-295); Phosphorus 3.3 mg/dL (2.5-4.5); Sodium 152 mmol/L (136-145); Total Bilirubin 0.3 mg/dL (0.15-1.2); Total Protein 6.9 g/dL (6.6-8.7)
[2025-01-23 05:12] LABS: Anion Gap 16.8 (5-19); Aspartate Amino Transferase 16 U/L (0-40); Potassium 3.8 mmol/L (3.5-5.1)
[2025-01-23] MEDS: piperacillin-tazobactam 3.375 GM in sodium chloride 0.9% (plus) 50 ML IV ×3 (06:12→22:42)
[2025-01-23 06:37] LABS: Sodium 155 mmol/L (136-145)
[2025-01-23] MEDS: pantoprazole 40 mg SDV IVP ×2 (08:42→17:38)
--- NOTE | 2025-01-23 10:59 | P.PN_ITS ---
Subjective 2 Subjective: Encephalopathic Sodium 155 Vitals/I&O/Wt Last Vital Signs Temp 98.6 F 01/23/25 08:00 Pulse 91 01/23/25 08:00 Resp 17 01/23/25 08:00 BP 104/65 01/23/25 08:00 Pulse Ox 95 01/23/25 08:00 O2 Del Method Room Air 01/23/25 08:00 01/22/25 01/23/25 01/23/25 22:59 06:59 14:59 Intake Total 50 / 5325.189 4830 / 2293.333 Output Total 750 / 750 300 / 1050 Balance -700 / 393.333 850 / 1243.333 Weight last 48 hrs Weight 175 lb 4.8 oz Weight 173 lb 9.6 oz Weight 173 lb Physical Exam 2 Narrative: Chest: Unlabored breathing room air. No lymphadenopathy. Heart: Regular rate and rhythm. Abdomen: Soft, nontender, nondistended. No masses or lymphadenopathy. Urinary Catheter Management: Lamb: Cath Placed During This Visit: yes Reason for Continuing Indwelling Catheter: Acute Urinary Retention or Obstruction Urinary Catheter Date of Insertion: 01/21/25 Urinary Catheter Time of Insertion: 02:17 Data 01/22/25 13:30 01/23/25 06:06 A&P Assessment and plan (1) Dehydration: Plan 69-year-old male whom surgery was consulted for lack of feeding access. Had a discussion with patient's guardian about the fact that he is not a surgical candidate. Patient's guardian agreed. Patient's guardian does want to explore the possibility of placing a Dobbhoff however I explained that there are no facilities that we will be able to manage that when he leaves this hospital to my knowledge. If a facility can manage the Dobbhoff when patient leaves the hospital we can attempt Dobbhoff placement with endoscopic guidance which will be technically challenging due to his large hiatal hernia. Will discuss with hospitalist PDMP PDMP Reviewed: Not Reviewed Attestations 2 Medical Necessity Statement*: N/A Coding Level of Care Code 80531 Diagnoses Dehydration E86.0 Time Spent (min) 30
[2025-01-23] MEDS: doxycycline 100 MG in sodium chloride 0.9% (plus) 100 ML IV ×2 (11:05→22:42)
[2025-01-23] MEDS: heparin 5,000 unit/mL INJ 1 mL 5000 UNIT SUBCUT ×2 (11:11→22:42)
--- NOTE | 2025-01-23 11:47 | P.PN_ITS ---
Subjective 2 Subjective: Clinically, patient appears slightly worse than yesterday. He is more tachypneic with upper airway secretions. He remains n.p.o. due to aspiration issues. He still remains encephalopathic and cannot provide history, although he cannot provide history even at baseline. Spoke with general surgery, Dr. Juares, who states he spoke with the legal guardian. General surgery stating patient is absolutely not a candidate for any type of invasive feeding tube including open jejunostomy tube. I will follow-up with legal guardian regarding goals of care for patient. Medications: Reviewed: Yes Vitals/I&O/Wt Last Vital Signs Temp 98.3 F 01/23/25 11:36 Pulse 97 01/23/25 11:36 Resp 17 01/23/25 11:36 BP 108/66 01/23/25 11:36 Pulse Ox 97 01/23/25 11:36 O2 Del Method Room Air 01/23/25 11:36 01/22/25 01/23/25 01/23/25 22:59 06:59 14:59 Intake Total 50 / 4236.217 7694 / 2293.333 1050 / 1050 Output Total 750 / 750 300 / 1050 Balance -700 / 393.333 850 / 7946.796 1157 / 1050 Weight last 48 hrs Weight 79.515 kg Weight 78.744 kg Weight 78.471 kg Physical Exam 2 Narrative: General: Patient remains encephalopathic. Chronically ill-appearing. Appears worse than yesterday's exam with audible upper airway secretions. Head: Atraumatic. Neck: No JVD. Cardiovascular: RRR. No gallops. No murmurs. Lungs: Breath sounds diminished, no use of accessory muscles, no crackles or wheezes. Skin: No jaundice. No rashes. Abdomen: Hypoactive bowel sounds, abdomen soft. Extremities: No cyanosis or clubbing. Contracted upper extremity. Musculoskeletal: No erythematous joints. Neurological: No myoclonus. Encephalopathic. Urinary Catheter Management: Lamb: Cath Placed During This Visit: yes Reason for Continuing Indwelling Catheter: Acute Urinary Retention or Obstruction Urinary Catheter Date of Insertion: 01/21/25 Urinary Catheter Time of Insertion: 02:17 Data 01/22/25 13:30 01/23/25 06:06 A&P Assessment and plan (1) Hypernatremia: Failure to thrive in adulthood Hypernatremia secondary to poor fluid water intake General Surgery, Dr. Juares, stating patient will not be a candidate for feeding tube regardless of antiplatelet action Plan to follow-up with legal guardian given this new information In the interim, continue free water replacement with D5W Trend sodium until improvement (2) Dysphagia: Persistent dysphagia (3) Troponin level elevated: Cardiology following, appreciate recommendations (4) Aspiration pneumonia: Aspiration pneumonia with sepsis Continue current antibiotics Aspiration precautions (5) Thrombocytopenia: Monitor for signs of bleeding (6) Dehydration: IV fluids as above (7) Developmental delay, profound: Patient is nonverbal has significant developmental delay at baseline He is a braga of the [facility] (8) Iron deficiency anemia: Monitor blood counts Qualifiers: Iron deficiency anemia type: other iron deficiency Qualified Code(s): D 50.8 - Other iron deficiency anemias (9) Chronic kidney disease: Patient has component of CKD, monitor renal function Daily assessments of volume Plan DVT prophylaxis: Heparin PDMP PDMP Reviewed: Not Reviewed Attestations 2 Medical Necessity Statement*: Patient requires ongoing hospitalization for treatment of severe hyponatremia, clarification of goals, and supportive care. Coding Level of Care Code Acute Code for g Fwd Diagnoses Hypernatremia E87.0 Dysphagia R13.10 Troponin level elevated R79.89 Aspiration pneumonia J69.0 Thrombocytopenia D69.6 Dehydration E86.0 Developmental delay, profound R62.50 Other iron deficiency anemia D50.8 Iron deficiency anemia type: other iron deficiency Chronic kidney disease N18.9
[2025-01-23 12:36] LABS: Sodium 151 mmol/L (136-145)
--- NOTE | 2025-01-23 14:33 | P.PN_ITS ---
<Statement entered by Bharathi Downey MD - 01/24/25 00:22> Patient was evaluated and cared for in conjunction with an advanced practice practitioner. I personally not have examined today but reviewed the chart and all pertinent data including imaging, telemetry, and laboratory results. I discussed the patient in detail with the advanced practice practitioner. Please see their note for complete H&P testing result and agreed upon plan of care for the patient. Subjective 2 Subjective: Saw patient today on rounds. He was resting. He has been kept n.p.o. for aspiration issues. Vitals/I&O/Wt Last Vital Signs Temp 98.3 F 01/23/25 11:36 Pulse 97 01/23/25 11:36 Resp 17 01/23/25 11:36 BP 108/66 01/23/25 11:36 Pulse Ox 97 01/23/25 11:36 O2 Del Method Room Air 01/23/25 11:36 01/22/25 01/23/25 01/23/25 22:59 06:59 14:59 Intake Total 50 / 0053.606 1404 / 2293.333 1263.333 / 1263.333 Output Total 750 / 750 300 / 1050 Balance -700 / 393.333 850 / 0195.343 1941.333 / 1263.333 Weight last 48 hrs Weight 175 lb 4.8 oz Weight 173 lb 9.6 oz Weight 173 lb Physical Exam 2 Narrative: General: No apparent distress Respiratory: Normal respiratory effort, clear to auscultation bilaterally throughout all lung shell, no use of accessory muscles Cardio: No JVD, regular rate, regular rhythm, S1 S2 normal, no murmurs, peripheral pulses 2+ radial palpated bilaterally Extremities: Full ROM, normal, normal capillary refill, trace pedal edema bilaterally anterior aspect Neuro: chronic neuro deficits Skin: No rashes or lesions noted, no wounds Urinary Catheter Management: Lamb: Cath Placed During This Visit: yes Reason for Continuing Indwelling Catheter: Acute Urinary Retention or Obstruction Urinary Catheter Date of Insertion: 01/21/25 Urinary Catheter Time of Insertion: 02:17 Data 01/22/25 13:30 01/23/25 12:05 A&P Assessment and plan (1) Cardiogenic shock: (2) Congestive heart failure: Qualifiers: Heart failure type: systolic Heart failure chronicity: chronic Q ualified Code(s): I50.22 - Chronic systolic (congestive) heart failure (3) Troponin level elevated: (4) Abnormal EKG: (5) Ischemic cardiomyopathy: (6) Elevated troponin: Plan We will continue to treat medically. Further discussions are to be made with the patient's guardian by the surgeon as well as primary. PDMP PDMP Reviewed: Not Reviewed Attestations 2 Medical Necessity Statement*: Deferred to primary. Coding Level of Care Code Acute Code for [facility] Fwd Diagnoses Cardiogenic shock R57.0 Chronic systolic congestive heart failure I50.22 Heart failure type: systolic Heart failure chronicity: chronic Troponin level elevated R79.89 Abnormal EKG R94.31 Ischemic cardiomyopathy I25.5
[2025-01-23] MEDS: dextrose 5% 1,000 ML 125 ML IV (17:38)
[2025-01-23 20:30] LABS: Sodium 152 mmol/L (136-145)
[2025-01-24] VITALS (8 sets, daily range): BP systolic 96–117; BP diastolic 61–77; PULSE 79–91; RESP 13–20; TEMP 36.6–37.1; O2SAT 90–98
[2025-01-24] MEDS: dextrose 5% 1,000 ML 125 ML IV ×2 (01:30→09:34)
[2025-01-24] MEDS: piperacillin-tazobactam 3.375 GM in sodium chloride 0.9% (plus) 50 ML IV (05:44)
[2025-01-24 09:14] LABS: Basophils % 0.4 %; Eosinophils # 0.3 10^3/uL (0.0-0.8); Eosinophils % 5.4 %; Hematocrit 21.4 % (37-53); Lymphocytes % 19.3 %; Mean Corpuscular HGB Conc 28.5 g/dL (30-55); Mean Corpuscular Hemoglobin 27.5 pg (27-33); Mean Corpuscular Volume 96.4 fl (82-101); Mean Platelet Volume 13.3 fL (7.4-10.4); Monocytes # 0.7 10^3/uL (0.2-0.9); Neutrophils # 3.18 10^3/uL (1.8-7.7); Neutrophils % 60.7 %; Nucleated Red Blood Cells % 0 %; Platelet Count 58 10^3/cmm (157-399); Red Blood Count 2.22 10^6/uL (3.85-5.65); Red Cell Distribution Width 21.2 % (12.1-15.1); White Blood Count 5.23 10^3/uL (3.29-11.43)
[2025-01-24 09:35] LABS: Alanine Aminotransferase 15 U/L (0-41); Albumin Level 2.5 g/dL (3.5-5.2); Alkaline Phosphatase 101 U/L (40-130); Anion Gap 14.1 (5-19); Aspartate Amino Transferase 16 U/L (0-40); Blood Urea Nitrogen 22 mg/dL (8-23); Calcium 7.2 mg/dL (8.5-10.5); Carbon Dioxide 17 mmol/L (22-29); Chloride 105 mmol/L (98-107); Creatinine Clr Calc Pharmacy 42.2047; Globulin 3.6 g/dL (1.3-4.6); Glomerular Filtration Rate 35.5 mL/min (90-130); Magnesium 1.4 mg/dL (1.7-2.3); Osmolality Calculated 304 mOsm/kg (285-295); Potassium 3.1 mmol/L (3.5-5.1); Sodium 133 mmol/L (136-145); Total Bilirubin 0.3 mg/dL (0.15-1.2); Total Protein 6.1 g/dL (6.6-8.7)
[2025-01-24] MEDS: pantoprazole 40 mg SDV IVP (09:35)
[2025-01-24 10:37] LABS: Glucose 541 mg/dL (65-115)
[2025-01-24 11:11] LABS: Basophils % 0.3 %; Eosinophils # 0.3 10^3/uL (0.0-0.8); Eosinophils % 5.4 %; Hematocrit 24.5 % (37-53); Lymphocytes # 1.1 10^3/uL (0.8-4.8); Lymphocytes % 18.6 %; Mean Corpuscular HGB Conc 29.4 g/dL (30-55); Mean Corpuscular Hemoglobin 27.2 pg (27-33); Mean Corpuscular Volume 92.5 fl (82-101); Mean Platelet Volume 12.1 fL (7.4-10.4); Monocytes # 0.8 10^3/uL (0.2-0.9); Monocytes % 12.9 %; Neutrophils # 3.69 10^3/uL (1.8-7.7); Neutrophils % 62.6 %; Nucleated Red Blood Cells % 0 %; Platelet Count 63 10^3/cmm (157-399); Red Blood Count 2.65 10^6/uL (3.85-5.65)
--- NOTE | 2025-01-24 11:24 | PM.PN ---
Subjective Subjective: Patient appears worse today. He is more lethargic. Nursing reporting prolonged episodes of apnea. He remains NPO due to aspiration risk. Medications: Reviewed: Yes Vitals/I&O/Wt Last Vital Signs Temp 98.7 F 01/24/25 08:10 Pulse 83 01/24/25 09:50 Resp 20 H 01/24/25 09:50 BP 96/68 01/24/25 08:10 Pulse Ox 97 01/24/25 09:50 O2 Del Method Room Air 01/24/25 09:50 01/23/25 01/24/25 01/24/25 22:59 06:59 14:59 Intake Total 724.375 / 5223.517 2548.333 / 3121.041 1050 / 1050 Output Total 200 / 200 Balance 724.375 / 1986.708 933.333 / 2921.041 1050 / 1050 Weight last 48 hrs Weight 84.776 kg Weight 79.515 kg Physical Exam Narrative: General: Patient remains encephalopathic. More in a stuporous state today. Neck: No JVD. Cardiovascular: RRR. No gallops. No murmurs. Lungs: Breath sounds diminished, no use of accessory muscles, no crackles or wheezes. Skin: No jaundice. No rashes. Abdomen: Hypoactive bowel sounds, abdomen soft. Extremities: No cyanosis or clubbing. Contracted upper extremity. Musculoskeletal: No erythematous joints. Neurological: No myoclonus. Encephalopathic. Urinary Catheter Management: Lamb: Cath Placed During This Visit: yes Reason for Continuing Indwelling Catheter: Acute Urinary Retention or Obstruction Urinary Catheter Date of Insertion: 01/21/25 Urinary Catheter Time of Insertion: 02:17 Data 01/24/25 11:03 01/24/25 08:59 A&P Assessment and plan (1) Hypernatremia: Failure to thrive in adulthood Hypernatremia secondary to poor fluid water intake General Surgery, Dr. Juares, stating patient will not be a candidate for feeding tube regardless of antiplatelet action Will plan to follow up legal guardian Continue D5W Labs pending Trend sodium until improvement (2) Dysphagia: Persistent dysphagia (3) Aspiration pneumonia: Aspiration pneumonia with sepsis Continue current antibiotics Aspiration precautions (4) Thrombocytopenia: Monitor for signs of bleeding (5) Dehydration: IV fluids as above (6) Developmental delay, profound: Patient is nonverbal has significant developmental delay at baseline He is a braga of the [facility] (7) Iron deficiency anemia: Monitor blood counts Qualifiers: Iron deficiency anemia type: other iron deficiency Qualified Code(s): D50.8 - Other iron deficiency anemias (8) Chronic kidney disease: Patient has component of CKD, monitor renal function Daily assessments of volume Plan DVT prophylaxis: Heparin PDMP PDMP Reviewed: Not Reviewed Attestations Medical Necessity Statement*: Patient requires ongoing hospitalization for treatment of severe hyponatremia and supportive care. Coding Level of Care Code Acute Code for [facility] Fwd Diagnoses Hypernatremia E87.0 Dysphagia R13.10 Aspiration pneumonia J69.0 Thrombocytopenia D69.6 Dehydration E86.0 Developmental delay, profound R62.50 Other iron deficiency anemia D50.8 Iron deficiency anemia type: other iron deficiency Chronic kidney disease N18.9
[2025-01-24 11:34] LABS: Alanine Aminotransferase 19 U/L (0-41); Albumin Level 2.9 g/dL (3.5-5.2); Alkaline Phosphatase 118 U/L (40-130); Anion Gap 15.9 (5-19); Aspartate Amino Transferase 16 U/L (0-40); Blood Urea Nitrogen 23 mg/dL (8-23); Calcium 8.2 mg/dL (8.5-10.5); Carbon Dioxide 19 mmol/L (22-29); Chloride 116 mmol/L (98-107); Creatinine Clr Calc Pharmacy 38.1852; Globulin 4.4 g/dL (1.3-4.6); Glomerular Filtration Rate 31.7 mL/min (90-130); Glucose 108 mg/dL (65-115); Magnesium 1.6 mg/dL (1.7-2.3); Osmolality Calculated 308 mOsm/kg (285-295); Phosphorus 3.5 mg/dL (2.5-4.5); Potassium 3.9 mmol/L (3.5-5.1); Sodium 147 mmol/L (136-145); Total Bilirubin 0.4 mg/dL (0.15-1.2); Total Protein 7.3 g/dL (6.6-8.7)
[2025-01-24] MEDS: cefTRIAXone 1,000 mg SDV 1000 MG IVP (12:38)
[2025-01-24] MEDS: heparin 5,000 unit/mL INJ 1 mL 5000 UNIT SUBCUT (12:38)
--- NOTE | 2025-01-24 14:14 | P.PN_ITS ---
<Statement entered by Marlin Gonzalez MD - 01/25/25 08:33> Pt seen, reviewed current clinical status, discussed with Ms. Dianna France NP.. and agreed with assessment/management plan. Vitals/I&O/Wt Last Vital Signs Temp 98.4 F 01/24/25 12:01 Pulse 79 01/24/25 12:01 Resp 17 01/24/25 12:01 BP 109/67 01/24/25 12:01 Pulse Ox 94 01/24/25 12:01 O2 Del Method Room Air 01/24/25 12:01 01/23/25 01/24/25 01/24/25 22:59 06:59 14:59 Intake Total 724.375 / 0118.601 4104.333 / 3121.041 1050 / 1050 Output Total 200 / 200 Balance 724.375 / 1986.708 933.333 / 2921.041 1050 / 1050 Weight last 48 hrs Weight 186 lb 14.4 oz Weight 175 lb 4.8 oz Physical Exam 2 Urinary Catheter Management: Lamb: Cath Placed During This Visit: yes Reason for Continuing Indwelling Catheter: Acute Urinary Retention or Obstruction Urinary Catheter Date of Insertion: 01/21/25 Urinary Catheter Time of Insertion: 02:17 Data 01/24/25 11:03 01/24/25 11:03 A&P Assessment and plan (1) Cardiogenic shock: (2) Congestive heart failure: Qualifiers: Heart failure type: systolic Heart failure chronicity: chronic Q ualified Code(s): I50.22 - Chronic systolic (congestive) heart failure (3) Troponin level elevated: (4) Abnormal EKG: (5) Ischemic cardiomyopathy: (6) Elevated troponin: Plan Patient was not seen on rounds today. We discussed the patient's case with Dr. Snyder. At this time, cardiology will sign off of this patient. As always, if our assistance is needed in the future, please consult us. Thank you for allowing us to take care of this very pleasant patient. PDMP PDMP Reviewed: Not Reviewed Attestations 2 Medical Necessity Statement*: Deferred to primary. Coding Level of Care Code Acute Code for [facility] Fwd Diagnoses Cardiogenic shock R57.0 Chronic systolic congestive heart failure I50.22 Heart failure type: systolic Heart failure chronicity: chronic Troponin level elevated R79.89 Abnormal EKG R94.31 Ischemic cardiomyopathy I25.5
[2025-01-24] MEDS: artificial tears Op Soln 15 mL Btl 2 DROP EYE-BOTH (17:51)
[2025-01-24] MEDS: morphine 4 mg/mL SDV 1 mL IVP (17:52)
[2025-01-24] MEDS: blistex lip oint 7 gm Tube 1 APPLIC TOPICAL (17:52)
[2025-01-24] MEDS: atropine 1% op soln 2 mL Btl 3 DROP SUBLINGUAL (17:52)
[2025-01-25 08:25] VITALS: BP 110/65; PULSE 92; RESP 16; TEMP 36.7; O2SAT 95
--- NOTE | 2025-01-25 11:12 | P.PN_ITS ---
Subjective 2 Subjective: Patient appears comfortable on exam. He cannot provide any history which is his baseline. He is on comfort care measures. Medications: Reviewed: Yes Vitals/I&O/Wt Last Vital Signs Temp 98.1 F 01/25/25 08:25 Pulse 92 01/25/25 08:25 Resp 16 01/25/25 08:25 BP 110/65 01/25/25 08:25 Pulse Ox 95 01/25/25 08:25 O2 Del Method Room Air 01/25/25 08:25 01/24/25 01/25/25 01/25/25 22:59 06:59 14:59 Intake Total 822.917 / 1872.917 Output Total 800 / 800 500 / 1300 Balance 22.917 / 1072.917 -500 / 572.917 Weight last 48 hrs Weight 85.411 kg Weight 84.776 kg Physical Exam 2 Narrative: General: Patient remains encephalopathic. Appears calm. Neck: No JVD. Cardiovascular: RRR. No gallops. No murmurs. Lungs: Breath sounds diminished, no use of accessory muscles, no crackles or wheezes. Skin: No jaundice. No rashes. Abdomen: Hypoactive bowel sounds, abdomen soft. Extremities: Contracted upper extremity. Musculoskeletal: No erythematous joints. Neurological: No myoclonus. Encephalopathic. Urinary Catheter Management: Lamb: Cath Placed During This Visit: yes Reason for Continuing Indwelling Catheter: Hospice/Comfort/Palliative Care Urinary Catheter Date of Insertion: 01/21/25 Urinary Catheter Time of Insertion: 02:17 Data 01/24/25 11:03 01/24/25 11:03 A&P Assessment and plan (1) Hypernatremia: (2) Dysphagia: (3) Aspiration pneumonia: (4) Thrombocytopenia: (5) Dehydration: (6) Developmental delay, profound: (7) Iron deficiency anemia: Qualifiers: Iron deficiency anemia type: other iron deficiency Qualified Code(s): D 50.8 - Other iron deficiency anemias (8) Chronic kidney disease: Plan -Transition to comfort care 01/24 per direction of legal guardian -Overall prognosis is poor -Continue comfort care measures -Aggressive treatment of symptoms PDMP PDMP Reviewed: Not Reviewed Attestations 2 Medical Necessity Statement*: Patient requires ongoing hospitalization for comfort care measures. Coding Level of Care Code Acute Code for Chg Fwd Diagnoses Hypernatremia E87.0 Dysphagia R13.10 Aspiration pneumonia J69.0 Thrombocytopenia D69.6 Dehydration E86.0 Developmental delay, profound R62.50 Other iron deficiency anemia D50.8 Iron deficiency anemia type: other iron deficiency Chronic kidney disease N18.9
[2025-01-25 19:51] VITALS: BP 109/57; PULSE 92; RESP 22; TEMP 37.2; O2SAT 91
[2025-01-26 08:00] VITALS: BP 128/73; PULSE 90; RESP 19; TEMP 36.7; O2SAT 93
--- NOTE | 2025-01-26 10:30 | P.PN_ITS ---
Subjective 2 Subjective: Patient on comfort care measures. Some audible upper airway secretions, but otherwise he appears comfortable on exam. Unable to provide history due to clinical status. Medications: Reviewed: Yes Vitals/I&O/Wt Last Vital Signs Temp 98.1 F 01/26/25 08:00 Pulse 90 01/26/25 08:00 Resp 19 H 01/26/25 08:00 BP 128/73 01/26/25 08:00 Pulse Ox 93 01/26/25 08:00 O2 Del Method Room Air 01/26/25 08:00 01/25/25 01/26/25 01/26/25 22:59 06:59 14:59 Intake Total 120 / 300 240 / 240 Output Total 900 / 900 400 / 1300 Balance -780 / -600 -400 / -1000 240 / 240 Weight last 48 hrs Weight 83.053 kg Weight 85.411 kg Physical Exam 2 Narrative: General: Patient remains encephalopathic. Audible upper airway secretions. No distress. Neck: No JVD. Cardiovascular: RRR. No gallops. No murmurs. Lungs: Breath sounds diminished. On room air. Skin: No jaundice. No rashes. Abdomen: Hypoactive bowel sounds, abdomen soft. Extremities: Contracted upper extremity. Musculoskeletal: No erythematous joints. Neurological: No myoclonus. Encephalopathic. Urinary Catheter Management: Lamb: Cath Placed During This Visit: yes Reason for Continuing Indwelling Catheter: Hospice/Comfort/Palliative Care Urinary Catheter Date of Insertion: 01/21/25 Urinary Catheter Time of Insertion: 02:17 Data 01/24/25 11:03 01/24/25 11:03 Micro: Microbiology 01/20/25 22:15 Blood Culture - Final Blood NO GROWTH AFTER 5 DAYS 01/20/25 22:20 Blood Culture - Final Blood NO GROWTH AFTER 5 DAYS A&P Assessment and plan (1) Hypernatremia: (2) Dysphagia: (3) Aspiration pneumonia: (4) Thrombocytopenia: (5) Dehydration: (6) Developmental delay, profound: (7) Iron deficiency anemia: Qualifiers: Iron deficiency anemia type: other iron deficiency Qualified Code(s): D 50.8 - Other iron deficiency anemias (8) Chronic kidney disease: Plan -Transition to comfort care 01/24 per direction of legal guardian -Overall prognosis is poor -Continue comfort care measures -Aggressive treatment of symptoms -Anticipating discharge planning on Monday PDMP PDMP Reviewed: Not Reviewed Attestations 2 Medical Necessity Statement*: Patient requires ongoing hospitalization for comfort care measures. Coding Level of Care Code Acute Code for Chg Fwd Diagnoses Hypernatremia E87.0 Dysphagia R13.10 Aspiration pneumonia J69.0 Thrombocytopenia D69.6 Dehydration E86.0 Developmental delay, profound R62.50 Other iron deficiency anemia D50.8 Iron deficiency anemia type: other iron deficiency Chronic kidney disease N18.9
[2025-01-26 12:00] VITALS: BP 114/71; PULSE 87; RESP 19; TEMP 36.8; O2SAT 92
[2025-01-26 16:00] VITALS: BP 133/76; PULSE 87; RESP 17; TEMP 37.1; O2SAT 93
[2025-01-26 20:00] VITALS: BP 104/57; PULSE 99; RESP 14; TEMP 36.7
[2025-01-27 07:30] VITALS: RESP 18
[2025-01-27] MEDS: morphine 4 mg/mL SDV 1 mL IVP ×2 (07:30→23:29)
[2025-01-27 07:34] VITALS: BP 135/82; PULSE 61; RESP 19; TEMP 36.9; O2SAT 91
[2025-01-27 11:04] VITALS: BP 123/78; PULSE 93; RESP 18; TEMP 36.8; O2SAT 95
[2025-01-27 16:00] VITALS: BP 120/76; PULSE 107; RESP 15; TEMP 37.2; O2SAT 93
--- NOTE | 2025-01-27 16:22 | P.PN_ITS ---
Subjective 2 Subjective: Hospital course, labs appreciated. Patient laying comfortably in bed. Medications: Reviewed: Yes Vitals/I&O/Wt Last Vital Signs Temp 98.2 F 01/27/25 11:04 Pulse 93 01/27/25 11:04 Resp 18 01/27/25 11:04 BP 123/78 01/27/25 11:04 Pulse Ox 95 01/27/25 11:04 O2 Del Method Room Air 01/27/25 11:04 01/27/25 01/27/25 01/27/25 06:59 14:59 22:59 Intake Total 240 / 240 Output Total 200 / 1150 Balance -200 / -670 240 / 240 Weight last 48 hrs Weight 80.104 kg Weight 83.053 kg Physical Exam 2 Narrative: General: Patient remains encephalopathic. Audible upper airway secretions. No distress. Neck: No JVD. Cardiovascular: RRR. No gallops. No murmurs. Lungs: Breath sounds diminished. On room air. Skin: No jaundice. No rashes. Abdomen: Hypoactive bowel sounds, abdomen soft. Extremities: Contracted upper extremity. Musculoskeletal: No erythematous joints. Neurological: No myoclonus. Encephalopathic. Urinary Catheter Management: Lamb: Cath Placed During This Visit: yes Reason for Continuing Indwelling Catheter: Hospice/Comfort/Palliative Care Urinary Catheter Date of Insertion: 01/21/25 Urinary Catheter Time of Insertion: 02:17 Data 01/24/25 11:03 01/24/25 11:03 A&P Assessment and plan (1) Hypernatremia: (2) Dysphagia: (3) Aspiration pneumonia: (4) Thrombocytopenia: (5) Dehydration: (6) Developmental delay, profound: (7) Iron deficiency anemia: Qualifiers: Iron deficiency anemia type: other iron deficiency Qualified Code(s): D 50.8 - Other iron deficiency anemias (8) Chronic kidney disease: Plan -Transition to comfort care 01/24 per direction of legal guardian -Overall prognosis is poor -Continue comfort care measures Discharge plan: Plan to set up hospice as an outpatient and possible transition back to [facility] where patient [facility]. Case management alerted. PDMP PDMP Reviewed: Not Reviewed Attestations 2 Medical Necessity Statement*: Requires further hospitalization while hospice/comfort care is set up as an outpatient. Diagnoses Hypernatremia E87.0 Dysphagia R13.10 Aspiration pneumonia J69.0 Thrombocytopenia D69.6 Dehydration E86.0 Developmental delay, profound R62.50 Other iron deficiency anemia D50.8 Iron deficiency anemia type: other iron deficiency Chronic kidney disease N18.9
[2025-01-27 20:00] VITALS: BP 120/74; PULSE 68; RESP 17; TEMP 36.6; O2SAT 92
[2025-01-27 23:22] VITALS: BP 135/72; PULSE 64; RESP 20; TEMP 36.8; O2SAT 90
[2025-01-28 06:00] VITALS: BMI 24.5
--- NOTE | 2025-01-28 06:27 | P.DS_ITS ---
Discharge Providers Date of Admission: 01/20/25 21:50 Date of Discharge: January 28, 2025 Attending Provider at Admission: Bharathi Saavedra MD Attending Provider at Discharge: Shon Marin MD Consults: Surgery: Carmelo Cardiology: Dr. Freitas Primary Care Provider: MANDI Stewart Diagnoses at Discharge Discharge Diagnosis (1) Hypernatremia: Status: Acute (2) Dysphagia: Status: Acute (3) Aspiration pneumonia: Status: Acute (4) Thrombocytopenia: Status: Acute (5) Dehydration: Status: Acute (6) Developmental delay, profound: Status: Acute (7) Iron deficiency anemia: Status: Acute Qualifiers: Iron deficiency anemia type: other iron deficiency Qualified Code(s): D50.8 - Other iron deficiency anemias (8) Chronic kidney disease: Status: Chronic Reason for Visit Reason for Visit: aspiration Brief History: History as per HPI: 69 year old male with severe development al delay, total assist, noncommunicative, living in a [facility], with histor epilepsy, PE following coronavirus infection with, previously on anticoagulation, GI bleeding, epilepsy, intermittent agitation, other medical problems, recently hospitalized after presentation after cardiogenic shock 12/[address] elevation [place], underwent coronary geography with PCI to LAD with 3 NICOLÁS, balloon angioplasty of diagonal, PCI to RCA. Echocardiogram showed EF 20% with recent improvement to 39%. Regional wall motion normality with grade 1 diastolic dysfunction. During hospitalization he also developed multiorgan dysfunction with cardiogenic shock which showed gradual improvement and resolution. With concerns for dysphagia, hiatal hernia, risk of aspiration, consideration was given to a feeding tube, however, due to multiple concerns this was not pursued. 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 Freitas regarding these findings. Hospital Course Hospital Course Patient was admitted to the hospital for further evaluation and management of acute on chronic hyponatremia in setting of poor oral intake, aspiration pneumonia leading to sepsis. Surgery was consulted for possible need of PEG tube. Again patient was found not to be a candidate for gastrostomy tube given significant hiatal hernia. Gastrostomy tube could not be placed because of recent stent placement and patient being on DAPT. Patient was started on aggressive IV hydration after which sodium levels improved. Given elevated troponin levels on admission cardiology was consulted who recommended continuing of current oral medications. Due to persistent hypernatremia, poor improvement in mentation, recurrent admissions because of hyponatremia, baseline health, quality of life multiple goals of care discussions were done with patient's DPOA/state appointed guardian who recommended patient to be transitioned over to comfort care. He has been discharged back to [facility] with comfort care status after hospice has been set up. Physical Exam Narrative: Patient appears comfortable. Further exam deferred because of comfort care status. Urinary Catheter Management: Lamb: Cath Placed During This Visit: yes Reason for Continuing Indwelling Catheter: Chronic Indwelling Urinary Catheter on Admission Urinary Catheter Date of Insertion: 01/21/25 Urinary Catheter Time of Insertion: 02:17 Discharge Data Studies Completed and Pending Completed Studies During Hospitalization Category Date Time Status CXRP [XR chest 1V portable [id number]] Routine Exams 01/22/25 12:28 Completed XR KUB portable [id number] Routine Exams 01/21/25 00:13 Completed XR chest 1V portable [id number] Stat Exams 01/20/25 18:37 Completed CV. echo limited [id number] Routine Ultrasound 01/21/25 00:11 Completed Radiology Impressions KUB X-Ray 01/21/25 00:13 IMPRESSION: Nonspecific, nonobstructive abdomen. Chest X-Ray 01/22/25 12:28 Impression: Satisfactory placement left PICC line. Laboratory Results WBC 5.90 10^3/uL (3.29-11.43) 01/24/25 11:03 RBC 2.65 10^6/uL (3.85-5.65) L 01/24/25 11:03 Hgb 7.20 g/dL (11.27-16.99) L 01/24/25 11:03 Hct 24.5 % (37-53) L 01/24/25 11:03 MCV 92.5 fl (82-101) 01/24/25 11:03 MCH 27.2 pg (27-33) 01/24/25 11:03 MCHC 29.4 g/dL (30-55) L 01/24/25 11:03 RDW 21.0 % (12.1-15.1) H 01/24/25 11:03 Plt Count 63 10^3/cmm (157-399) L 01/24/25 11:03 MPV 12.1 fL (7.4-10.4) H 01/24/25 11:03 Neut % (Auto) 62.6 % 01/24/25 11:03 Lymph % (Auto) 18.6 % 01/24/25 11:03 [place] % (Auto) 12.9 % 01/24/25 11:03 Eos % (Auto) 5.4 % 01/24/25 11:03 Baso % (Auto) 0.3 % 01/24/25 11:03 Neut # (Auto) 3.69 10^3/uL (1.8-7.7) 01/24/25 11:03 Lymph # (Auto) 1.1 10^3/uL (0.8-4.8) 01/24/25 11:03 [place] # (Auto) 0.8 10^3/uL (0.2-0.9) 01/24/25 11:03 Eos # (Auto) 0.3 10^3/uL (0.0-0.8) 01/24/25 11:03 Baso # (Auto) 0.0 10^3/uL (0.0-0.1) 01/24/25 11:03 Nucleated RBC % (auto) 0 % 01/24/25 11:03 Nucleated RBCs # 0.0 /100WBC 01/24/25 11:03 Sodium 147 mmol/L (136-145) H D 01/24/25 11:03 Potassium 3.9 mmol/L (3.5-5.1) 01/24/25 11:03 Chloride 116 mmol/L (98-107) H 01/24/25 11:03 Carbon Dioxide 19 mmol/L (22-29) L 01/24/25 11:03 Anion Gap 15.9 (5-19) 01/24/25 11:03 BUN 23 mg/dL (8-23) 01/24/25 11:03 Creatinine 2.1 mg/dL (0.7-1.2) H 01/24/25 11:03 GFR Calculation 31.7 mL/min (90-130) L 01/24/25 11:03 Glucose 108 mg/dL (65-115) 01/24/25 11:03 Calculated Osmolality 308 mOsm/kg (285-295) H 01/24/25 11:03 Lactic Acid 3.4 mmol/L (0.5-2.2) H 01/20/25 22:20 Lactic Acid (Sepsis) 3.0 mmol/L (0.5-2.2) H 01/21/25 02:03 Calcium 8.2 mg/dL (8.5-10.5) L 01/24/25 11:03 Phosphorus 3.5 mg/dL (2.5-4.5) 01/24/25 11:03 Magnesium 1.6 mg/dL (1.7-2.3) L 01/24/25 11:03 Total Bilirubin 0.4 mg/dL (0.15-1.2) 01/24/25 11:03 AST 16 U/L (0-40) 01/24/25 11:03 ALT 19 U/L (0-41) 01/24/25 11:03 Alkaline Phosphatase 118 U/L (40-130) 01/24/25 11:03 Troponin T Baseline 472 ng/L (0-15) H* 01/20/25 20:04 Troponin T 120 Minute 463.2 ng/L (0-15) H 01/20/25 22:20 Delta Troponin T -8.8 ABS# (0-10) L 01/20/25 22:20 Troponin T Hi Sens 6Hr 495.1 ng/L (0-15) H 01/21/25 02:03 Troponin T Hi Sens 6Hr Delta 23.1 ng/L (0-12) H* 01/21/25 02:03 C-Reactive Protein 35.7 mg/L (0.0-4.9) H 01/21/25 04:08 NT-Pro-B Natriuret Pep 6263 pg/mL (0-125) H 01/20/25 20:20 Total Protein 7.3 g/dL (6.6-8.7) 01/24/25 11:03 Albumin 2.9 g/dL (3.5-5.2) L 01/24/25 11:03 Globulin 4.4 g/dL (1.3-4.6) 01/24/25 11:03 Lipase 38 U/L (13-60) 01/20/25 20:20 Procalcitonin 0.24 ng/mL (0-0.5) 01/20/25 20:30 Vitals Last Vital Signs Temp 98.3 F 01/27/25 23:22 Pulse 64 01/27/25 23:22 Resp 20 H 01/27/25 23:22 BP 135/72 01/27/25 23:22 Pulse Ox 90 01/27/25 23:22 O2 Del Method Room Air 01/27/25 16:00 Discharge Plan Discharge Patient Disposition: Hospice - Home Condition: Stable Prescriptions: Continued levetiracetam 1,000 mg tablet 1,000 mg PO BID pantoprazole [Protonix] 40 mg tablet,delayed release (DR/EC) 40 mg PO BID 42 Days Qty: 84 1RF fluticasone propionate 50 mcg/actuation spray,suspension 1 spray intranasal DAILY Rx Instructions: administer into each nostril sennosides [Elizabet-melanie] 8.6 mg tablet 8.6 mg PO DAILY magnesium hydroxide [Milk of Magnesia] 400 mg/5 mL suspension 30 ml PO DAILY PRN (Reason: Constipation) dextromethorphan-guaifenesin [Tussin DM] 10-100 mg/5 mL syrup 5 ml PO Q4H PRN (Reason: Cough) multivitamin Tablet 1 tab PO DAILY lactulose 10 gram/15 mL Solution 30 ml PO DAILY acetaminophen 325 mg Tablet 325 mg PO QID PRN (Reason: pain) polyethylene glycol 3350 17 gram/dose Powder 17 g PO DAILY citalopram 10 mg Tablet 10 mg PO DAILY cetirizine 10 mg tablet 10 mg PO DAILY Fycompa 6 mg tablet 6 mg PO QAM atorvastatin 40 mg Tablet 40 mg PO BEDTIME Qty: 30 0RF amiodarone [Pacerone] 200 mg Tablet 200 mg PO DAILY Qty: 30 0RF clopidogrel 75 mg Tablet 75 mg PO DAILY Qty: 30 0RF aspirin 81 mg Tablet,Delayed Release (Dr/Ec) 81 mg PO DAILY Qty: 30 0RF metoprolol tartrate 25 mg Tablet 12.5 mg PO BID@0900,2100 Qty: 30 0RF furosemide [Lasix] 40 mg tablet 40 mg PO DAILY PRN (Reason: Lower limb swelling, gain of 5 pounds) Qty: 20 0RF Discontinued amoxicillin-pot clavulanate 875-125 mg tablet 1 tab PO BID Qty: 20 0RF Discharge Orders: Discharge Order (Routine); Ordered 01/28/25 Ordered By: Shon Marin Referrals: Alecia Solorio FNP [Primary Care Provider] - Patient Instructions: Hospice Care (GEN), Opioid Safety Discharge Attestations Time Spent in Discharge Care*: greater than 30 min Specific Discharge Activities: educating and/or supporting family/caregiver, discussing with pcp/other providers, discussing with outpatient case manager/social workers/dc planners, documenting/other paperwork and evaluating patient/reviewing data Status at Discharge: Cognitive status at discharge: severely impaired cognition , Behavioral status at discharge: cooperative , Functional status at discharge: bed bound , Overall status at discharge: patient is back to baseline Quality Metrics Clinical Quality Measures [ No reported AMI, CVA or VTE this stay] Coding Level of Care Code 85693 Total time (in minutes) for Discharge: 40 Diagnoses Hypernatremia E87.0 Dysphagia R13.10 Aspiration pneumonia J69.0 Thrombocytopenia D69.6 Dehydration E86.0 Developmental delay, profound R62.50 Other iron deficiency anemia D50.8 Iron deficiency anemia type: other iron deficiency Chronic kidney disease N18.9
[2025-01-28 08:00] VITALS: BP 100/58; PULSE 99; RESP 17; TEMP 37.4; O2SAT 92
[2025-01-28 10:36] VITALS: BP 112/74; PULSE 90; RESP 17; TEMP 36.9; O2SAT 95
[2025-01-28 12:14] VITALS: BP 112/74; PULSE 90; RESP 17; TEMP 36.9; O2SAT 95
== END 2025-01-28 12:15 | disposition hospice, home (50) | DRG 871 ==
LOC: ER 22:03 → ER IP 22:04 → MEDSURG 01-21 06:04
PROVIDERS: Internal Medicine; Admitting Provider Internal Medicine; Emergency Provider Emergency Medicine; PCP Nurse Practitioner Family; Visit Provider Student in an Organized Health Care Education/Training Program
DX: A41.9 Sepsis, unspecified organism (principal); G93.41 Metabolic encephalopathy; J69.0 Pneumonitis due to inhalation of food and vomit; R57.0 Cardiogenic shock; E87.0 Hyperosmolality and hypernatremia; I50.22 Chronic systolic (congestive) heart failure; R62.50 Unspecified lack of expected normal physiological development in childhood; E86.0 Dehydration; N18.9 Chronic kidney disease, unspecified; R79.89 Other specified abnormal findings of blood chemistry; R13.10 Dysphagia, unspecified; G40.909 Epilepsy, unspecified, not intractable, without status epilepticus; I25.10 Atherosclerotic heart disease of native coronary artery without angina pectoris; K44.9 Diaphragmatic hernia without obstruction or gangrene; L89.151 Pressure ulcer of sacral region, stage 1; Z66 Do not resuscitate; I25.5 Ischemic cardiomyopathy; D50.8 Other iron deficiency anemias; D69.6 Thrombocytopenia, unspecified; Z51.5 Encounter for palliative care; Z79.02 Long term (current) use of antithrombotics/antiplatelets; Z86.711 Personal history of pulmonary embolism; Z95.5 Presence of coronary angioplasty implant and graft; Z86.16 Personal history of COVID-19
CPT/HCPCS: 36415; 36573; 36592; 51702; 71045; 74018; 80053; 80069; 83605; 83690; 83735; 83880; 84100; 84145; 84295; 84484; 85025; 86140; 87040; 92523; 92526; 92610; 93005; 93308; 96365; 96372; 99285; 99291; J0696; J1644; J2270; J2470; J2543; J3490; J7030; J7070; J7799